=== PATIENT | male | born 1990 | race Caucasian/White ===

== ENCOUNTER 2025-03-12 11:40 | Outpatient (CLI) | payer OTHER, MEDICAID, SELFPAY ==
--- OUTSIDE RECORDS SUMMARY | 2025-02-25 02:42 | XMS_ITS | Encounter Summary ---
Author Organization Healthcare Address [address] [place] [address] Care Team Providers Care Ladle Handler Name Role Phone Pcp, No Primary Care Provider Unavailvidal e Francisco Javier Eller MD Unavailable [phone] Reason for Visit * Reason Comments Wound Check * Auth/Cert (Routine) Specialty Diagnoses / Procedures Referred By Kerry t Referred To Contact Diagnoses Sternal wound dehiscence, initial encounter chest abscess at surgical scar near mediastinum with hx cabg 2021 at [facility] Sherlyn Daniel MD [address] [address] Phone: tel: fax: [facility] Emergency Department [address] [place] [address] Phone: tel: Referral ID Status Reason Start Date Expiration Date Visits Re quested Visits Authorized [id number] 1 1 Encounter Details Date Type Department Care Team (Latest Contact Info) Description 02/25/2025 2:42 AM EDT - 03/06/2025 1:35 PM EDT Hospital Encounter [facility] Inpatient [address] [place] [id number] Franco Guillory MD [address] [place] [address] Sherlyn Daniel MD [address] [address] Chest wall abscess (Primary Dx); [...] any time in the past 12 m [facility], were you homeless or living in a snf (including now)? No 02/27/2025 Utilities Answer Date [...] 1 each 5 04/10/20 25 HYDROcodone-acetami nophen ([place]) 5-325 MG tablet Take 1 tablet by [...] as directed by MD. 20 patch 5 methocarbamol (Robaxin) 750 MG tablet Take 1 tablet by mouth 4 times a day. 30 tablet 5 naloxone (Narcan) 4 mg/0.1 mL nasal [...] 3 days. 24 tablet 5 03/12/20 25 documented as of this encounter Miscellaneous Notes * Discharge Summary - Malcolm Landrum PA - 03/06/2025 1:35 PM EDT Hospitalization Admit Date/Time: 02/25/2025 2:42 AM Admitting Attending: Sherlyn Daniel Discharge Date: 03-06-25 Discharge Attending Physician: Sherlyn Daniel MD PCP name and Address: Pcp, [facility] [address] [place] [address] Referring provider name and address: Stephen Tello, SONYA [address] [place] [address] [place] Chief Concern, Brief History of Present Illness, and Hospital Course Alex Amaya is a 34 y.o. male with history of IV drug use on suboxone, infectious endocarditisrequiring tricuspid valve repair in [place] in 2019. He states that he had [...] and got worse so he went to [facility] where he was found to have [...] Your Medications These medications were sent to [email or web address] -[place], [place] - [address], [facility] [address] ceFAZolin injection These medications were sent to [facility] [place], [place] - [address] [facility] [address] lidocaine 5 % patch methocarbamol 750 MG [...] leaflet repair and De Lucas procedure at [facility] ([place]) - OSH CT imaging uploaded and reviewed - 02/25: BCx (+) staph aureus - Underwent chest washout, wound debridement, removal of sternal plates, and wound vac placement on02/[address] Daniel (silver sponge so no WV change til Wednesday) - TTE shows LVEF 59%, mod dilated RV with nl RV fx. TV leaflets thickened. 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 There appears to be restricted [...] Pain - [facility] Obesity (POA) - BMI 33.47 [...] Center 03/08/2025 2:00 PM Keny Tristan MD [facility] 03/12/2025 9:40 AM Sherlyn Daniel MD [facility] 03/26/2025 11:40 AM Sherlyn Daniel MD [facility] 03/27/2025 9:00 AM Keny Chin MD [facility] 04/10/2025 9:00 AM Leela Chin MD [facility] Follow-up: Francisco Javier Eller MD [address] [id number] Go on 04/26/2025 Your appointment time is 2:10pm Please arrive 15 minutes early and bring bottles of medication [facility] [address] [place] [address] Go on 03/12/2025 03/12/25 at 11:30 AM - Infusion Center for PICC and labs Wound Vac Changes MWF - same location, but in Physical Therapy Department - First Appointment 03/14/25 9:00 AM [facility] [address] [place] [address] Follow up for IV antibiotics and supplies Stephen Tello, SONYA [address] [place] [address] [facility] Test Results Pending At Discharge Pending Labs Order Current Status AFB Culture, Non Respiratory Source and Acid Fast Stain Preliminary result Blood Culture (Aerobic/Anaerobet Set) Preliminary result Blood Culture (Aerobic/Anaerobet Set) Preliminary result Fungal Culture, Tissue and DNAY Preliminary result Prepare Leukocyte Reduced RBC: 4 [...] Note Alex Amaya 34 y.o. male CSN: [id number] Admission: 02/25/2025 2:42 AM Primary Problem: Sternal wound dehiscence, initial encounter Primary Skein Bander: Primary Caregiver: Self Assistance Available at Discharge: Availability of Care Givers (#Hours): 24 hours, No assistance needed Family/Skein Bander(s) Willingness Assessed to care for patient at [...] days Follow-up: Francisco Javier Eller MD [address] [facility] [address] Go on 04/26/2025 Your appointment time is 2:10pm Please arrive 15 minutes early and bring bottles of medication [facility] [address] [facility] [address] [place] [phone] Go on 03/12/2025 03/12/25 at 11:30 AM - Infusion Center for PICC and labs Wound Vac Changes MWF - same location, but in Physical Therapy Department - First Appointment 03/14/25 9:00 AM [facility] [address] [place] [address] Follow up for IV antibiotics and supplies Stephen Tello, SONYA [address] [place] [address] [facility] Discharge Transportation: Transportation Anticipated: [...] vac changes and then will go to [facility]. S/O will assist and transport. Lise [...] note were not included. 798 Narcan Nasal [place]: Rescue Guide for Opioid Overdose Step 1 [...] Only for use in the nose. * Opaljanet Kaushal - Barbara Martins - 03/06/2025 9:41 AM EDT Images from the original note were not included. [id number] Methocarbamol Brand Name(s): Robaxin??; also available generically [...] taking or plan to take while taking methocarbamol. Your doctor may need to change the [...] be awakened, immediately call emergency services at 738. What OTHER INFORMATION should I know? Keep all appointments with your doctor. Do not let anyone else take your medication. Ask your pharmacist any questions you have about refilling your prescription. It is important for you to keep a written list of all of the prescription and nonprescription (ydda-nxn-txppeua) medicines you are taking, as well as [...] or pharmacist about specific clinical use. The [place] [employer] represents that the information provided hereunder was formulated with a reasonable standard of care, and in conformity with professional standards in the field. The [place] [employer] makes no representations or warranties, express or implied, including, but not limited to, any implied warranty of merchantability and/or fitness for a particular purpose, with respect to such information and specifically disclaims all such warranties. Users are advised that decisions regarding drug therapy are complex medical decisions requiring the independent, informed decision of an appropriate health care program director, and the information is provided for informational purposes only. The entire monograph for a drug should be reviewed for a thorough understanding of the drug's actions, uses and side effects. The [place] [employer] does not endorse or recommend the use of any drug.The information is not a substitute for medical care. AHFS?? Patient Medication Information?. ?? Copyright, 2023. The [place] [employer]??, [address] [facility], [address], [place], [place]. All Rights Reserved. Duplication for commercial use must be authorized by [facility]. Selected Revisions: May 18, 2017. AHFS?? Patient Medication Information?. ?? Copyright, 2024 * Tyler Easley - Barbara Martins - 03/06/2025 9:41 AM EDT Images from the original note were not included. [id number] Lidocaine Transdermal Patch Brand Name(s): Absorbine Jr?? [...] or years after a shingles infection). Nonprescription (zmbt-ttr-xnrfxwq) lidocaine (Absorbine Jr, Aspercreme, Lidoca re, Salonpas, [...] or doctor for a copy of the tape calender's information for the patient. Are there OTHER [...] if you have or have ever had gdfqfrp-6-lvgerhzfd dehydrogenase (G-6PD) deficiency (an inherited blood disorder), [...] and out of their sight and reach. [email or web address] Unneeded medications should be disposed of in [...] of all of the prescription and nonprescription (ussr-spi-rmzidol) medicines you are taking, as well as [...] or pharmacist about specific clinical use. The [place] [employer] represents that the information provided hereunder was formulated with a reasonable standard of care, and in conformity with professional standards in the field. The [place] [employer] makes no representations or warranties, express or implied, including, but not limited to, any implied warranty of merchantability and/or fitness for a particular purpose, with respect to such information and specifically disclaims all such warranties. Users are advised that decisions regarding drug therapy are complex medical decisions requiring the independent, informed decision of an appropriate health care program director, and the information is provided for informational purposes only. The entire monograph for a drug should be reviewed for a thorough understanding of the drug's actions, uses and side effects. The [place] [employer] does not endorse or recommend the use of any drug.The information is not a substitute for medical care. AHFS?? Patient Medication Information?. ?? Copyright, 2023. The [place] [employer]??, [address] [facility] [facility] [address], [address], [place], [place]. All Rights Reserved. Duplication for commercial use must be authorized by [facility]. Selected Revisions: March 18, 2021. AHFS?? Patient Medication Information?. ?? Copyright, 2024 * Tyler OnFHIR - Barbara Martins - 03/06/2025 9:41 AM EDT Images from the original note were not included. [id number] Cefazolin Injection Brand Name(s): Ancef?, Kefzol?; also [...] of all of the prescription and nonprescription (nbup-vmj-qujtxvc) medicines you are taking, as well as [...] or pharmacist about specific clinical use. The [place] [employer] represents that the information provided hereunder was formulated with a reasonable standard of care, and in conformity with professional standards in the field. The [place] [employer] makes no representations or warranties, express or implied, including, but not limited to, any implied warranty of merchantability and/or fitness for a particular purpose, with respect to such information and specifically disclaims all such warranties. Users are advised that decisions regarding drug therapy are complex medical decisions requiring the independent, informed decision of an appropriate health care program director, and the information is provided for informational purposes only. The entire monograph for a drug should be reviewed for a thorough understanding of the drug's actions, uses and side effects. The [place] [employer] does not endorse or recommend the use of any drug.The information is not a substitute for medical care. AHFS?? Patient Medication Information?. ?? Copyright, 2023. The [place] [employer]??, [address] [facility] [address], [address], [place], [place]. All Rights Reserved. Duplication for commercial use must be authorized by [facility]. Selected Revisions: March 23, 2024. AHFS?? [...] present and normoactive x 4 quadrants SKIN: Brinsmade, warm, and dry. No rash, sores, or [...] leaflet repair and De Lucas procedure at [facility] ([place]) - OSH CT imaging uploaded and reviewed - 02/25: BCx (+) staph aureus - Underwent chest washout, wound debridement, removal of sternal plates, and wound vac placement on02/[address] Tanna (silver sponge so no WV change til Wednesday) - TTE shows LVEF 59%, mod dilated RV with nl RV fx. TV leaflets thickened. 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 There appears to be restricted [...] WV changes, continue home Suboxone Cardiothoracic Surgery [phone] * Progress Notes - Lise Christine RN - 03/05/2025 3:07 PM EDT Case Management Discharge Note Alex Amaya 34 y.o. male CSN: [id number] Admission: 02/25/2025 2:42 AM Primary Problem: Sternal wound dehiscence, initial encounter Primary Skein Bander: Primary Caregiver: Self Assistance Available at Discharge: Availability of Care Givers (#Hours): 24 hours, No assistance needed Family/Skein Bander(s) Willingness Assessed to care for patient at [...] days [facility]: [facility] [address] [facility] [address] Go on 04/26/2025 Your appointment time is 2:10pm Please arrive 15 minutes early and bring bottles of medication [facility] [address] [facility] [address] [place] [address] Go on 03/12/2025 03/12/25 at 11:30 AM - Infusion Center for PICC and labs Wound Vac Changes MWF - same location, but in Physical Therapy Department - First Appointment 03/14/25 9:00 AM [email or web address] [address] [facility] [address] Follow up for IV antibiotics and supplies Discharge Transportation: Transportation Anticipated: family or friend will provide Transportation Home at Discharge: Family/Friend will Provide Follow Up Transport: Transportation Needed to Follow up Appoinments: Family/Friend will Provide Additional Comments: Per primary team patient is medically ready for discharge. Patient will discharge with IV antibiotics from [facility] - supplies will be delivered to bedside. Wound vac ordered through [facility] - will be delivered to bedside. Patient will follow up in [facility]ovascular Clinic for first two wound vac changes, then will go to [facility] starting March 14. Patient also scheduled to go to [facility] for PICC care and labs. Family will [...] Performed by: Maxwell Roper RN Authorized by: Shrelyn Daniel MD [place] Protocol: Verbal consent obtained?: Yes Written consent [...] vein Patient position: Flat Catheter Lot #: [id number] Catheter tape calender: Sellbrite Catheter placed: Single lumen Catheter size: 4 [...] present and normoactive x 4 quadrants SKIN: Brinsmade, warm, and dry. No rash, sores, or [...] leaflet repair and De Lucas procedure at [facility] ([place]) - OSH CT imaging uploaded and reviewed - 02/25: BCx (+) staph aureus - Underwent chest washout, wound debridement, removal of sternal plates, and wound vac placement with Dr Daniel (silver sponge so no WV change til Tom) - TTE shows LVEF 59%, mod dilated RV with nl RV fx. TV leaflets thickened. 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 There appears to be restricted [...] present and normoactive x 4 quadrants SKIN: Brinsmade, warm, and dry. No rash, sores, or [...] leaflet repair and De Lucas procedure at [facility] ([place]) - OSH CT imaging uploaded and reviewed - 02/25: BCx (+) staph aureus - Underwent chest washout, wound debridement, removal of sternal plates, and wound vac placement on02/[address] Daniel (silver sponge so no WV change til Wednesday) - TTE shows LVEF 59%, mod dilated RV with nl RV fx. TV leaflets thickened. 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 There appears to be restricted [...] to order single lumen PICC. Cardiothoracic Surgery [id number] * Care Plan - Yared Cartwright RN [...] leaflet repair and De Lucas procedure at [facility] ([place]) - OSH CT imaging uploaded and reviewed - 02/25: BCx (+) staph aureus - Underwent chest washout, wound debridement, removal of sternal plates, and wound vac placement on02/[address] Daniel (silver sponge so no WV change til Wednesday) - TTE shows LVEF 59%, mod dilated RV with nl RV fx. TV leaflets thickened. 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 There appears to be restricted [...] to order single lumen PICC. Cardiothoracic Surgery [phone] * Significant Event - Keny Chin MD [...] 0930AM WEEK 6 FOLLOWUP: 04/10/2025, 0900AM at [address] [place] [address] (Select Option 3 for IV Antibiotic / PICC line related issues) All questions regarding outpatient parenteral antimicrobials after discharge should be directed to the OPAT nurse navigator at (Select Option 3 for IV Antibiotics/PICC Issues) between 8am-5pm. After 5 pm, or during weekends/[place] holidays, please call the paging instant printer operator at to reach the on-call ID fellow. PLEASE NOTIFY THE ID CONSULTING SERVICE OF ANY QUESTIONS REGARDING THESE RECOMMENDATIONS OR WITH ANY ANTIMICROBIAL CHANGES THAT OCCUR AFTER THE DATE/TIME OF THIS OPAT INTAKE NOTE. * Progress Notes - Keny Chin MD - 03/02/2025 12:00 PM EDT Infectious Disease Bone And Joint Consult Team - Followup, Attending Note S: NAEON. ROS: Positive as above. Otherwise, 14 systems [...] mg, Oral, q4h PRN, Carloz, Kelsie A, PROOFSHEET CORRECTOR Buprenorphine HCl-Naloxone HCl (Suboxone) 8-2 MG per SL film 8 mg, 8 mg, Sublingual, BID, Alejandro Sandoval PA, 8 mg at 03/02/25 0924 calcium carbonate (Tums) chewable tablet 500 mg, 500 mg, Oral, q6h PRN, Zariley, Kelsie A, PROOFSHEET CORRECTOR ceFAZolin (Ancef) injection 2 g, 2 g, Intravenous, q8h, Carloz Kelsie A, PROOFSHEET CORRECTOR, 2 g at 03/02/25 0923 docusate sodium (Colace) capsule 100 mg, 100 mg, Oral, BID, Zacher, Kelsie A, PROOFSHEET CORRECTOR, 100 mg at 03/02/25 0923 heparin (porcine) injection 5,000 Units, 5,000 Units, Subcutaneous, q8h PENDING SALE TO [facility], Maxwell Ocasio MD, 5,000 Units at 03/02/25 0515 HYDROmorphone (Dilaudid) tablet 2 mg, 2 mg, Oral, q6h PRN, Zariley, Kelsie A, PROOFSHEET CORRECTOR ibuprofen tablet 600 mg, 600 mg, Oral, q6h PRN, Zariley Kelsie A, PROOFSHEET CORRECTOR lidocaine (Lidoderm) 5 % patch 1 patch, 1 patch, Apply externally, q24h, Carloz Kelsie A, PROOFSHEET CORRECTOR, 1 patch at 03/01/252111 methocarbamol (Robaxin) tablet 750 mg, 750 mg, Oral, 4x daily, Zairley Kelsie A, PROOFSHEET CORRECTOR, 750 mg at 03/02/25 0923 senna (Senokot) [...] mL, 10 mL, Intravenous, PRN, Kelsie Carty APRN O: Visit Vitals BP 130/79 (BP Location: [...] regurgitation. Tricuspid Valve: The leaflets appear thickened. 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 There appears to be restricted [...] is no recent study available for direct kiau-lt-tloq comparison. 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 Ptalso with h/o TV IE in 2019 for which he had TV leaflet repair and De Lucas procedure at [facility]). Pt was incarcerated at the time, and [...] inage in several years. Pt seen at [facility] 02/24/2025. 02/24/2025 CT showed 2.4x2.1x2.6cm [...] BLD cx so far NGTD CARDIAC: H/o 2019 TV IE, s/p leaflet repair and De Lucas procedure at [facility] ([place]) SUBSTANCE ABUSE: Illicit: H/o IVDA, polysubstance abuse. [...] abx therapy. For now, while inpatient at [facility]: Continue Cefazolin 2g IV q8h [...] appointment in order to complete registration paperwork.) [facility] (Infectious Diseases Clinic) [address] [place] [address] FISH BIN TENDER: . FAX: ID Bone and Joint Consult Service will sign off. (Please reconsult us if his 02/27/2025 or 03/01/2025 blood cultures turn positive. This will affect dates of therapy and when PICC can be placed.) The following complex inpatient infectious disease services were performed today: Complex antimicrobial therapy counseling and treatment * Tyler MooreLESLI - Donna Rosario RN - 03/02/2025 10:43 [...] arms away from your body. * Tyler [facility] - Donna Rosario RN - 03/02/2025 10:43 AM EDT Images from the original note were not included. [id number] Understanding Wound Separation After Surgery (Wound Dehiscence) [...] of the opening. How to say it [id number] How wound dehiscence happens A wound can [...] all of the wound is open ?? Brandon or stitches are broken ?? Pain ?? [...] out Last Reviewed Date: 2024 00:00:00 ?? [id number] [employer]. All rights reserved. This information is not intended as a substitute for professional medical care. Always follow your healthcare professional's instructions. * Consults - Asia Neumann RD - 03/02/2025 9:48 AM EDT Adult Nutrition Evaluation Note Alex Amaya 34 y.o. male CSN: [id number] Room/Bed 119/119A Nutrition evaluation type: assessment Reason for evaluation: [facility] course: 34 yo male transferred to from [facility] for evaluation of chronic sternotomy wound with [...] suboxone, infectious endocarditis requiring tricuspid valverepair in [place] in 2019. Medical History[1] Surgical History[2] Social [...] (Room air) O2 Delivery Method: Nasal cannula [place] Coma Scale Score: 15 Jhony Scale Score: [...] (260 lb 12.9 oz) BMI (Calculated): 33.47 [place] Body Weight (kg): 86.4 Percent [place] Body Weight: 137 Adjusted Body Weight (kg): 94.4 Estimated Needs: Metabolic Cart Study Results: Current Nutrition Intake: Diet Supplements: None Diet Order: Adult Diet Diet Texture: Regular Percent Meals Eaten (%): 100% x 3 meals Diet Experience and Nutrition History: Diet Education Provided: Will monitor Pertinent home medications: Reviewed Tenriism needs: Nutrition Focused Physical Exam: Physical exam [...] with nl RV fx. TV leaflets thickened. 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 There appears to be restricted motion/malcoaptation involving the septal leaflet. There is no tricuspid valve vegetation. There is severe tricuspid regurgitation. There is systolic flow reversal of the hepatic veins consistent with significant tricuspid valve regurgitation. OUD (POA) Post-Operative Pain - continue home Suboxone - [facility] Obesity (POA) - BMI 33.88 - complicates all aspects of care Plan: - Continue IV abx per ID - Continue wound vac - Will need PICC Cardiothoracic Surgery [phone] * Progress Notes - Estefania Salguero - 03/01/2025 8:08 AM EDT Case Management Adult Progress Note Alex Amaya 34 y.o. male CSN: [id number] Admission: 02/25/2025 2:42 AM Primary Problem: Sternal [...] IV Access: pending Patient Specific Outpatient Circumstances: [address] [place] [address] Family Support: Extended Emergency Contact Information Primary Emergency Contact: Mary Lemus Mobile Relation: Significant Other Preferred language: Guyanese Claims Associate needed? No Contact information: Alex Amaya -[phone] Afua Lemus (pt's S.O. -will administer IV abx) - [phone] Outpatient services (including home infusion, home health, [...] PICC care/labs;patient is requesting to go to [facility] close to home . After this [...] via secure chat or staff messaging in [email or web address]. This note is not the final recommendations from the infectious diseases team, please refer to the most recent note for this information. Patient and family will need to be educated by the infusion company before being discharged home. Barby CORTEZN, RN 02/28/2025 * Progress Notes - Keny [...] mg, Oral, q6h PRN, August Cartya A, PROOFSHEET CORRECTOR ceFAZolin (Ancef) injection 2 g, 2 g, Intravenous, q8h, Kelsie Carty PROOFSHEET CORRECTOR, 2 g at 02/28/25 0908 docusate sodium (Colace) capsule 100 mg, 100 mg, Oral, BID, August Cartya A, PROOFSHEET CORRECTOR, 100 mg at 02/27/25 2139 heparin (porcine) [...] mL, 10 mL, Intravenous, PRN, Kelsie Carty PROOFSHEET CORRECTOR O: Visit Vitals BP 134/77 (BP Location: [...] regurgitation. Tricuspid Valve: The leaflets appear thickened. 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 There appears to be restricted [...] is no recent study available for direct dcrp-hy-kjle comparison. 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 Ptalso with h/o TV IE in 2019 for which he had TV leaflet repair and De Lucas procedure at [facility] Pt was incarcerated at the time, and post-discharge developed chronic drainage from cephalad portion of sternal wound. [facility]. Wound subsequentlyhas open and closed several times since 2021, including in December 2024. On/around 02/19/2025, wound again ruptured with large amount of purulent drainage, which pt described as largest amount of renata inage in several years. Pt seen at [facility] 02/24/2025. 02/24/2025 CT showed 2.4x2.1x2.6cm [...] leaflet repair and De Lucas procedure at [facility] SUBSTANCE ABUSE: Illicit: H/o IVDA, polysubstance abuse. [...] abx therapy. For now, while inpatient at [facility]: Continue Cefazolin 2g IV q8h [...] follow while inhouse. (If patient does leave A, then they will need to find another ID specialist to manage their care.) The following complex inpatient infectious disease services were performed today: Complex antimicrobial therapy counseling and treatment * Progress Notes - Kelsie Carty Gilbert, PROOFSHEET CORRECTOR - 02/28/2025 11:30 AM EDT CVT Progress [...] with nl RV fx. TV leaflets thickened. 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 There appears to be restricted motion/malcoaptation involving the septal leaflet. There is no tricuspid valve vegetation. There is severe tricuspid regurgitation. There is systolic flow reversal of the hepatic veins consistent with significant tricuspid valve regurgitation. OUD (POA) Post-Operative Pain - continue home Suboxone - [facility] Obesity (POA) - BMI 33.88 - complicates all aspects of care Plan: - continue IV abx per ID - continue wound vac Cardiothoracic Surgery [phone] * Care Plan - Nasra Jasmine RN [...] Ongoing, Progressing * Progress Notes - Mayelin Caruso, PharmD - 02/28/2025 8:08 AM EDT Vancomycin [...] needed in the future. Mayelin Caruso PharmD, [facility] Clinical Pharmacist - Cardiology Contact via [...] semipermeable dressing * Progress Notes - Ayan Elizalde, RuD - 02/27/2025 2:47 PM EDT Specialty Pharmacy [...] of HCV workup. Branden Elizalde, Pharm D. [facility] via secure [...] 600 mg, 600 mg, Oral, q6h SAUL, aMxwell Ocasio MD, 600 mg at 02/27/25 1145 [...] regurgitation. Tricuspid Valve: The leaflets appear thickened. 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 There appears to be restricted [...] is no recent study available for direct gybt-oc-twzp comparison. 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 Ptalso with h/o TV IE in 2019 for which he had TV leaflet repair and De Lucas procedure at [facility] Pt was incarcerated at the time, and [...] inage in several years. Pt seen at [facility] 02/24/2025. 02/24/2025 CT showed 2.4x2.1x2.6cm [...] leaflet repair and De Lucas procedure at [facility] SUBSTANCE ABUSE: Illicit: H/o IVDA, polysubstance abuse. [...] abx therapy. For now, while inpatient at [facility]: D/c Vanco and Zosyn Start [...] Note Alex Amaya 34 y.o. male CSN: [id number] Admission: 02/25/2025 2:42 AM Primary Problem: Sternal wound dehiscence, initial encounter PCP: Pcp, No Emergency Contact: Extended Emergency Contact Information Primary Emergency Contact: Mary Lemus Mobile Relation: Significant Other Preferred language: Guyanese Claims Associate needed? No Insurance: Primary Visit Coverage Payer Plan Sponsor Code Group Number Group Name AETNA AETNA OPEN CHOICE ACCESS [id number] Primary Visit Coverage Subscriber Subscriber ID Subscriber Name Subscriber SSN Subscriber Address [id number] Alex Amaya [id number] [address] [id number] Secondary Visit Coverage Payer Plan Sponsor Code Group Number Group Name WELLCARE MEDICAID WELLCARE MEDICAID Secondary Visit Coverage Subscriber Subscriber ID Subscriber Name Subscriber SSN Subscriber Address [id number] Alex Amaya [id number] [address] [place] [address] Patient information: Primary Caregiver: Self Accompanied by/Relationship: Mary Lemus ([phone]) Support System: Immediate family Daily Living Activities: Functional Status: Independent Living Arrangements: Spouse/Significant other, Children (5 y.o. child) Type of Residence: Private residence, Single Level (1-2 DANIS) [address] [address] Current DME: Equipment Currently Used at Home: [...] Dialysis Services: N/A Living Will/Advance Directive/Power of Cinder Pit Crane Operator /Guardian: Have you reviewed your Advance Directive [...] assessment; pt accompanied by significant other Mary Mariah ([phone]). Pt does not have a POA/LW/AD. Pt [...] DC. Pt has never worked with an SIDE SEAM TENDER and has never stayed anywhere overnight for physical rehab. Pt prefers [facility] his [facility]. Pt confirms insurance listed [...] sounds present and normoactivex 4 quadrants SKIN: Brinsmade, warm, and dry. No rash, sores, or [...] Post-Operative Pain - continue home Suboxone - [facility] Obesity (POA) - BMI 32 - complicates all aspects of care Plan: - continue IV abx per ID - continue wound vac - TTE completed this morning, read pending Cardiothoracic Surgery [phone] * Discharge Instr - Other Orders - Donna Rosario RN - 02/27/2025 10:28 AM EDT Please arrive 30 minutes early for your appointment with Dr. Daniel Prior to your appointment, go to the radiology department on the 1st floor of the [facility] near [facility] for a chest x-ray. Then [...] your incisions. Do NOT lift, push or lime puller 5 pounds for six weeks. Do [...] Donna Rosario CT Surgery Nurse Navigator at [phone] Wednesday through Wednesday 7am- 3:30pm [facility] [phone] after 3:30 pm, weekends and holidays - ask for the CT surgeon business liaison officer. * Progress Notes - Alejandro Sandoval PA [...] sounds present and normoactivex 4 quadrants SKIN: Brinsmade, warm, and dry. No rash, sores, or [...] Post-Operative Pain - continue home Suboxone - [facility] Obesity (POA) - BMI 32 - complicates all aspects of care Plan: - continue IV abx per ID - continue wound vac Cardiothoracic Surgery [phone] * Anesthesia PACU Signout - Umberto Davis [...] CORONARY ARTERY BYPASS GRAFTING: Date: 02/26/2025 Location: [facility] OR Name: Alex Amaya, : 1990, Pre-operative Diagnosis: Problem List[1] Post-operative [...] suboxone, infectious endocarditisrequiring tricuspid valve repair in [place] in 2019. He states that he had [...] midnight. Pacheco Ocasio MD Cardiothoracic Surgery Pager: [phone] * Significant Event - Alejandro Sandoval PA - 02/25/2025 1:35 PM EDT Patient seen and evaluated with Dr Daniel. Will go to OR tomorrow for chest washout and removal of sternal plates with Dr Daniel. Pre-op orders placed. Consent obtained and placed in paper chart. NPOp PR. CT Surgery [phone] * Consults - Kinga Mc MD - [...] valve repair with a DeVega Procedure at [facility] (2019), multiple I&Ds of superior sternotomy site most recent in 2021, and chronic drainage of sternotomy (last episode 3 months prior) who presents as a transfer from [facility] with new and worsened superior sternotomy drainage. MDET team were consulted to provide recommendations on therapy and management. Mr. Amaya first noted repeat drainage on 02/19/25, associated with fevers, chills, and swelling. He went to a local ED and was discharged. Given no change he then went to [facility]. CT Chest showed a fluid collection anterior to the sternum and was transferred to for ID follow up and CT surgery evaluation. Upon arrival to on 02/25 blood cultures were taken and have NGTD. Wound cultures have a GS positive for GPC in pairs and clusters. He was started on Vancomycin and Zosyn, [facility]. Additional pertinent admission workup includes Hep C antibodypositivity, HIV non-reactive, CRP of 282.5, and an ESR of 65. When spoken to Mr. Amaya endorses persistent drainage from his sternal wound. In the room therewas considerable drainage on his dressing, which ID team changed. He endorsed the above history anddescribes following with a shoes salesperson Dr. Park. Social: Was recently incarcerated until [...] Value Units Date/Time Blood Culture (Aerobic/Anaerobet Set) [[id number]] Collected: 02/25/25317 Order Status: Completed Specimen: Blood, Venous Updated: 02/25/25 06 Culture Culture in lab Blood Culture (Aerobic/Anaerobet Set) [[id number]] Collected: 02/25/25317 Order Status: Completed Specimen: Blood, Venous Updated: 02/25/25 0601 Culture Culture in lab Wound Culture and Gram Stain [[id number]] (Abnormal) Collected: 02/25/25445 Order Status: Completed Specimen: Swab from Cutaneous skin (specify site) Updated: 02/25/25 05 Gram Stain Result Numerous Polymorphonuclear leukocytes Numerous Gram positive cocci in pairs Numerous Gram positive cocci in clusters Antibiotics: Vancomycin 02/25-P Zosyn 02/25-P Assessment: Alex Amaya is a 34 y.o. male with history of IVDU on suboxone, nTVie s/p valve repair with a DeVega Procedure at [facility] (2019), multiple I&Ds of superior sternotomy site most recent in 2021, and chronic drainage of sternotomy (last episode 3 months prior) who presents as a transfer from [facility] with new and worsened superior sternotomy drainage. MDET team were consulted to provide recommendations on therapy and management. Cultures have not grown any specific organisms at this time, however GS with GPC in pairs and clusters. Agree with washout tomorrow and would obtain cultures. At this time can continue antibiotic therapy. # Hx of nTV ie s/p DeVega Procedure at [facility] (2019) # Sternotomy Site SSTI # Chronic [...] injection 5,000 Units 5,000 Units Subcutaneous q8h PENDING SALE TO [facility] Cassidy Baptiste MD 5,000Units at 02/25/25 0446 [...] ID will follow. Sherman Gonzáles MD Pager: [phone] I spent greater than 110 minutes performing the following components of the encounter (on the day of the encounter): reviewing history, examining the patient, reviewing imaging and/or labs, echo, ECGand/or other imaging results, counseling the patient and family/caregiver, communicating with otherhealth child care education coordinator. The patient is receiving directed antibiotic therapy which requires monitoring of daily labs for toxicities. Greater than 50% of the time spent on the encounter was rlyt-kc-ecif providing direct patient care, counseling for the [...] as appropriate. Thank you, Marcos Hopper PharmD, [facility] Clinical Staff Pharmacist * H&P [...] suboxone, infectious endocarditisrequiring tricuspid valve repair in [place] in 2019. He states that he had [...] and got worse so he went to [facility] where he was found to have [...] Tobacco Use: Medium Risk (01/09/2025) Received from [employer] Patient History Smoking Tobacco Use: Former Smokeless [...] suboxone, infectious endocarditisrequiring tricuspid valve repair in [place] in 2019. He states that he had [...] and got worse so he went to [facility] where he was found to have [...] infectious endocarditis requiring open heart surgery at [facility] (2019) c/b multiple episodes of medial [...] and got worse so he went to [facility] where he was found to have the chest abscess. He was transferred to [facility] for evaluation with CT surgery and ID History provided by: Patient and medical records sports betting manager used: No Patient History Medical History[1] Surgical [...] Medication Administration from 02/25/2025 0013 to 02/25/2025 041 Date/Time Order Dose Route Action 02/25/2025 0333 [...] Set) STAT In process [facility]IR[place] LEWIS 02/25/25307 Hepatitis C Antibody - ED Once Final result VIR[place]IA LEWIS 05/25/25 0308 ED Protocol - HIV 1/2 Antibody/Antigen Screen Once Final result [facility] LEWIS 02/25/25 0308 ED HIV 1/2 Antibody/Antigen Screen w/Reflex to HIV 1/2 Differentiation PROCEDURE ONCE Final result [facility] PIKE 02/25/25 0308 CBC w/diff STAT Final result [facility]IR[place]IA LEWIS 02/25/25 0308 CMP STAT Final result [place] 02/25/25 0308 Magnesium STAT Final result [facility] LEWIS 02/25/25 0308 Phosphorus STAT Final result [facility] LEWIS 02/25/25 0308 C-Reactive protein STAT Final result [facility] LEWIS 02/25/25 0308 Sed rate, automated STAT Final [...] collection [JG] 0314 Reviewed of records from [facility], given 1 g ceftriaxone at 19:47. [...] None Disposition Admit Admitting/Attending Physician: SHERLYN DANIEL [[id number]] Provider Care Team: CVT CARDIAC SURGERY [255] Are they the primary team?: Yes [1] - Virginia Lewis MD Internal Medicine, PGY-2 [phone] or via Epic chat [1] Past Medical History: Diagnosis Date Endocarditis [2] No past surgical history on file. [3] No family history on file. [4] [5] No Known Allergies Virginia Lewis MD Resident 02/25/25 05 Cosigned by Franco Guillory MD at 02/25/2025 [...] Description 03/26/2025 11:40 AM EDT Office Visit [facility] Cardiothoracic [address], [address] [place] [address] Sherlyn Daniel MD [address] [place] [address] 03/27/2025 9:00 AM EDT Office Visit [facility] [address] [place] [address] Keny Chin MD [address] [facility] [address] [place] [address] 04/10/2025 9:00 AM EDT Office Visit [facility] [address] [place] [address] Leela Chin MD [address] [place] [address] Pending Results Name Type Priority Associated Diagnoses [...] Roper RN Authorized by: Sherlyn Daniel MD [place] Protocol: Verbal consent obtained?: Yes Written consent [...] vein Patient position: Flat Catheter Lot #: [id number] Catheter tape calender: Sellbrite Catheter placed: Single lumen Catheter size: 4 [...] LAB HEMATOLOGY METHOD 03/03/2025 3:14 AM EDT [facility] Platelet Estimate Platelet smear estimate consistent with automated count LAB HEMATOLOGY METHOD 03/03/2025 3:14 AM EDT [facility] Blood Venous blood specimen / Unknown Venipuncture / Unknown 03/03/2025 2:11 AM EDT 03/03/2025 2:25 AM EDT us Kelsie Carty APRN LAB BLOOD ORDERABLES Final R esult [facility] [address] [place] [address] * (ABNORMAL) Manual Differential (03/03/2025 2:11 AM EDT) Blasts % 0 % LAB HEMATOLOGY METHOD 03/03/2025 3:14 AM EDT [facility] Promyelocytes % 0 % LAB HEMATOLOGY METHOD 03/03/2025 3:14 AM EDT [facility] Myelocytes % 2 % LAB HEMATOLOGY METHOD 03/03/2025 3:14 AM EDT [facility] Metamyelocytes % 3 % LAB HEMATOLOGY METHOD 03/03/2025 3:14 AM EDT [facility] Neutrophils % 75 % LAB HEMATOLOGY METHOD 03/03/2025 3:14 AM EDT [facility] Lymphocytes % 14 % LAB HEMATOLOGY METHOD 03/03/2025 3:14 AM EDT [facility] Reactive Lymphocytes % 0 % LAB HEMATOLOGY METHOD 03/03/2025 3:14 AM EDT [facility] Monocytes % 3 % LAB HEMATOLOGY METHOD 03/03/2025 3:14 AM EDT [facility] Eosinophils % 3 % LAB HEMATOLOGY METHOD 03/03/2025 3:14 AM EDT [facility] Basophils % 0 % LAB HEMATOLOGY METHOD 03/03/2025 3:14 AM EDT [facility] Blasts Absolute 0.00 10*3/UL LAB HEMATOLOGY METHOD 03/03/2025 3:14 AM EDT [facility] Promyelocytes Absolute 0.00 10*3/uL LAB HEMATOLOGY METHOD 03/03/2025 3:14 AM EDT [facility] Myelocytes Absolute 0.21 10*3/uL LAB HEMATOLOGY METHOD 03/03/2025 3:14 AM EDT [facility] Metamyelocytes Absolute 0.31 10*3/uL LAB HEMATOLOGY METHOD 03/03/2025 3:14 AM EDT [facility] Neutrophils Absolute 7.72(H) 1.60 - 6.10 10*3/uL LAB HEMATOLOGY METHOD 03/03/2025 3:14 AM EDT [facility] Lymphocytes Absolute 1.44 1.20 - 3.90 10*3/uL LAB HEMATOLOGY METHOD 03/03/2025 3:14 AM EDT [facility] Reactive Lymphocytes Absolute 0.00 10*3/uL LAB HEMATOLOGY METHOD 03/03/2025 3:14 AM EDT [facility] Monocytes Absolute 0.31 0.30 - 0.90 10*3/uL LAB HEMATOLOGY METHOD 03/03/2025 3:14 AM EDT [facility] Eosinophils Absolute 0.31 0.00 - 0.50 10*3/uL LAB HEMATOLOGY METHOD 03/03/2025 3:14 AM EDT [facility] Basophils Absolute 0.00 0.00 - 0.10 10*3/uL LAB HEMATOLOGY METHOD 03/03/2025 3:14 AM EDT [facility] Blood Venous blood specimen / Unknown Venipuncture / Unknown 03/03/2025 2:11 AM EDT 03/03/2025 2:25 AM EDT us Kelsie Carty PROOFSHEET CORRECTOR LAB BLOOD ORDERABLES Final R esult [facility] [address] [place] [address] * (ABNORMAL) Hepatic function panel (03/03/2025 2:11 AM EDT) Conjugated Bilirubin, Plasma <0.2 <=0.3 mg/dL 03/03/2025 2:55 AM EDT [facility] Comment:Hemolyzed, result ma y be falsely decreased. Alkaline Phosphatase, Plasma 99 40 - 115 U/L 03/03/2025 2:55 AM EDT [facility] Total Bilirubin, Plasma 0.3 0.2 - 1.1 mg/dL 03/03/2025 2:55 AM EDT [facility] Albumin, Plasma 3.3(L) 3.5 - 5.2 g/dL 03/03/2025 2:55 AM EDT [facility] Total Protein 7.9 6.3 - 7.9 g/dL 03/03/2025 2:55 AM EDT [facility] ALT, Plasma 36 10 - 50 U/L 03/03/2025 2:55 AM EDT [facility] AST, Plasma 46 10 - 50 U/L 03/03/2025 2:55 AM EDT [facility] Comment:Hemolyzed, result ma y be falsely increased. Blood Venous blood specimen / Unknown Venipuncture / Unknown 03/03/2025 2:11 AM EDT 03/03/2025 2:23 AM EDT us Kelsie A Zacher PROOFSHEET CORRECTOR LAB BLOOD ORDERABLES Final R esult [facility] [address] [place] [address] * Magnesium, Plasma (03/03/2025 2:11 AM EDT) Pathologist [facility] Magnesium, Plasma 2.2 1.9 - 2.4 mg/dL 03/03/2025 2:55 AM EDT [facility] Blood Venous blood specimen / Unknown Venipuncture / Unknown 03/03/2025 2:11 AM EDT 03/03/2025 2:23 AM EDT Kelsie Carty PROOFSHEET CORRECTOR LAB BLOOD ORDERABLES Final R esult [facility] [address] [place] [address] * CBC and Differential (03/03/2025 2:11 AM EDT) [facility] WBC Count 10.29 3.70 - 10.30 10*3/uL LAB HEMATOLOGY METHOD 03/03/2025 3:15 AM EDT [facility] RBC Count 5.48 4.60 - 6.10 10*6/uL LAB HEMATOLOGY METHOD 03/03/2025 3:15 AM EDT [facility] HGB 15.6 13.7 - 17.5 g/dL LAB HEMATOLOGY METHOD 03/03/2025 3:15 AM EDT [facility] HCT 47.6 40.0 - 51.0 % LAB HEMATOLOGY METHOD 03/03/2025 3:15 AM EDT [facility] Platelet Count 329 155 - 369 10*3/uL LAB HEMATOLOGY METHOD 03/03/2025 3:15 AM EDT [facility] MCV 87 79 - 98 fL LAB HEMATOLOGY METHOD 03/03/2025 3:15 AM EDT [facility] MCH 28.5 26.0 - 32.0 pg LAB HEMATOLOGY METHOD 03/03/2025 3:15 AM EDT [facility] MCHC 32.8 30.7 - 35.5 g/dL LAB HEMATOLOGY METHOD 03/03/2025 3:15 AM EDT [facility] RDW 12.9 11.5 - 14.5 % LAB HEMATOLOGY METHOD 03/03/2025 3:15 AM EDT [facility] MPV 9.1 8.8 - 12.5 fL LAB HEMATOLOGY METHOD 03/03/2025 3:15 AM EDT [facility] nRBC 0.0 <=0.0 per 100 WBCs LAB HEMATOLOGY METHOD 03/03/2025 3:15 AM EDT [facility] Differential Type Manual LAB HEMATOLOGY METHOD 03/03/2025 3:15 AM EDT [facility] Blood Venous blood specimen / Unknown Venipuncture / Unknown 03/03/2025 2:11 AM EDT 03/03/2025 2:25 AM EDT Narrative [facility] - 03/03/2025 3:15 AM [...] APRN LAB BLOOD ORDERABLES Final R esult [facility] [address] [place] [address] * Blood Culture (Aerobic/Anaerobet Set) (03/03/2025 2:11 AM EDT) Culture No growth at day 5 GEENA 03/08/2025 4:02 AM EDT [facility] Blood Structure of antecubital vein / Unknown Venipuncture / Unknown 03/03/2025 2:11 AM EDT 03/03/2025 3:04 AM EDT Narrative [facility] - 03/08/2025 4:02 AM EDT Low blood volume submitted, results may be compromised us Kelsie Carty APRN LAB MICROBIOLOGY - GENERAL O RDERABLES Final Result Performing Organization Address City/[facility]/ZIP Co de Phone Number [facility] [address] [place] [address] * Blood Culture (Aerobic/Anaerobet Set) (03/03/2025 2:11 AM EDT) Culture No growth at day 5 GEENA 03/08/2025 4:02 AM EDT [facility] Blood Venous blood specimen / Unknown Venipuncture / Unknown 03/03/2025 2:11 AM EDT 03/03/2025 3:03 AM EDT Kelsie Carty APRN LAB MICROBIOLOGY - GENERAL O RDERABLES Final Result Performing Organization Address [facility]/ZIP Co de Phone Number [facility] [address] [place] [address] * (ABNORMAL) CBC W/O Differential (03/01/2025 3:55 AM EDT) WBC Count 7.81 3.70 - 10.30 10*3/uL LAB HEMATOLOGY METHOD 03/01/2025 4:12 AM EDT [facility] RBC Count 4.51(L) 4.60 - 6.10 10*6/uL LAB HEMATOLOGY METHOD 03/01/2025 4:12 AM EDT [facility] HGB 12.8(L) 13.7 - 17.5 g/dL LAB HEMATOLOGY METHOD 03/01/2025 4:12 AM EDT [facility] HCT 40.5 40.0 - 51.0 % LAB HEMATOLOGY METHOD 03/01/2025 4:12 AM EDT [facility] Platelet Count 292 155 - 369 10*3/uL LAB HEMATOLOGY METHOD 03/01/2025 4:12 AM EDT [facility] MCV 90 79 - 98 fL LAB HEMATOLOGY METHOD 03/01/2025 4:12 AM EDT [facility] MCH 28.4 26.0 - 32.0 pg LAB HEMATOLOGY METHOD 03/01/2025 4:12 AM EDT [facility] MCHC 31.6 30.7 - 35.5 g/dL LAB HEMATOLOGY METHOD 03/01/2025 4:12 AM EDT [facility] RDW 13.0 11.5 - 14.5 % LAB HEMATOLOGY METHOD 03/01/2025 4:12 AM EDT [facility] MPV 9.5 8.8 - 12.5 fL LAB HEMATOLOGY METHOD 03/01/2025 4:12 AM EDT [facility] nRBC 0.0 <=0.0 per 100 WBCs LAB HEMATOLOGY METHOD 03/01/2025 4:12 AM EDT [facility] Blood Venous blood specimen / Unknown Venipuncture / Unknown 03/01/2025 3:55 AM EDT 03/01/2025 4:04 AM EDT Catalina Cuba MD LAB BLOOD ORDERABLES Final Result [facility] [address] [place] [address] * (ABNORMAL) Basic metabolic panel (03/01/2025 3:55 AM EDT) Glucose, Plasma 94 74 - 99 mg/dL 03/01/2025 4:37 AM EDT [facility] BUN, Plasma 14 7 - 21 mg/dL 03/01/2025 4:37 AM EDT [facility] Creatinine, Plasma 0.92 0.70 - 1.20 mg/dL 03/01/2025 4:37 AM EDT [facility] BUN/Creatinine Ratio 15 03/01/2025 4:37 AM EDT [facility] [facility] Sodium, Plasma 140 136 - 145 mmol/L 03/01/2025 4:37 AM EDT [facility] Potassium, Plasma 4.4 3.6 - 4.9 mmol/L 03/01/2025 4:37 AM EDT [facility] Chloride, Plasma 105 97 - 107 mmol/L 03/01/2025 4:37 AM EDT [facility] CO2, Plasma 25 22 - 29 mmol/L 03/01/2025 4:37 AM EDT [facility] Anion Gap 10 6 - 16 mmol/L 03/01/2025 4:37 AM EDT [facility] Total Calcium, Plasma 8.8(L) 8.9 - 10.2 mg/dL 03/01/2025 4:37 AM EDT [facility] eGFRcr 110.6 mL/min/1.7 3m*2 03/01/2025 4:37 AM EDT [facility] Comment:Reported eGFRcr in m L/min/1.73m2 is based the CKD-EPI 2020 equation that does not use a race coefficient. Blood Venous blood specimen / Unknown Venipuncture / Unknown 03/01/2025 3:55 AM EDT 03/01/2025 4:04 AM EDT us Catalina Cuba MD LAB BLOOD ORDERABLES Final Result Performing Organization Address [facility]/ZIP Co de Phone Number [facility] [address] [place] [address] * Blood Culture (Aerobic/Anaerobet Set) (03/01/2025 3:45 AM EDT) Culture No growth at day 5 GEENA 03/06/2025 5:01 AM EDT [facility] Blood Venous blood specimen / Unknown Venipuncture / Unknown 03/01/2025 3:45 AM EDT 03/01/2025 4:45 AM EDT us Kelsie Carty APRN LAB MICROBIOLOGY - GENERAL O RDERABLES Final Result [facility] [address] [place] [address] * Blood Culture (Aerobic/Anaerobet Set) (03/01/2025 3:30 AM EDT) Culture No growth at day 5 GEENA 03/06/2025 5:01 AM EDT [facility] Blood Venous blood specimen / Unknown Venipuncture / Unknown 03/01/2025 3:30 AM EDT 03/01/2025 4:45 AM EDT us Kelsie Carty APRN LAB MICROBIOLOGY - GENERAL O RDERABLES Final Result Performing Organization Address City/[facility]/ZIP Co de Phone Number [facility] [address] [place] [address] * Magnesium (02/28/2025 4:03 AM EDT) Magnesium, Plasma 2.2 1.9 - 2.4 mg/dL 02/28/2025 4:37 AM EDT [facility] Blood Venous blood specimen / Unknown Venipuncture / Unknown 02/28/2025 4:03 AM EDT 02/28/2025 4:10 AM EDT us Sherlyn Daniel MD LAB BLOOD ORDERABLES Final Res ult Performing Organization Address City/[facility]/ZIP Co de Phone Number [facility] [address] [place] [address] * (ABNORMAL) CBC W/O Differential (02/28/2025 4:03 AM EDT) WBC Count 7.50 3.70 - 10.30 10*3/uL LAB HEMATOLOGY METHOD 02/28/2025 4:26 AM EDT [facility] RBC Count 4.59(L) 4.60 - 6.10 10*6/uL LAB HEMATOLOGY METHOD 02/28/2025 4:26 AM EDT [facility] HGB 13.1(L) 13.7 - 17.5 g/dL LAB HEMATOLOGY METHOD 02/28/2025 4:26 AM EDT [facility] HCT 40.6 40.0 - 51.0 % LAB HEMATOLOGY METHOD 02/28/2025 4:26 AM EDT [facility] Platelet Count 252 155 - 369 10*3/uL LAB HEMATOLOGY METHOD 02/28/2025 4:26 AM EDT [facility] MCV 89 79 - 98 fL LAB HEMATOLOGY METHOD 02/28/2025 4:26 AM EDT [facility] MCH 28.5 26.0 - 32.0 pg LAB HEMATOLOGY METHOD 02/28/2025 4:26 AM EDT [facility] MCHC 32.3 30.7 - 35.5 g/dL LAB HEMATOLOGY METHOD 02/28/2025 4:26 AM EDT [facility] RDW 13.2 11.5 - 14.5 % LAB HEMATOLOGY METHOD 02/28/2025 4:26 AM EDT [facility] MPV 9.8 8.8 - 12.5 fL LAB HEMATOLOGY METHOD 02/28/2025 4:26 AM EDT [facility] nRBC 0.0 <=0.0 per 100 WBCs LAB HEMATOLOGY METHOD 02/28/2025 4:26 AM EDT [facility] Blood Venous blood specimen / Unknown Venipuncture / Unknown 02/28/2025 4:03 AM EDT 02/28/2025 4:12 AM EDT us Sherlyn Daniel MD LAB BLOOD ORDERABLES Final Res ult [facility] [address] [place] [address] * (ABNORMAL) Basic metabolic panel (02/28/2025 4:03 AM EDT) Glucose, Plasma 110(H) 74 - 99 mg/dL 02/28/2025 4:37 AM EDT [facility] BUN, Plasma 18 7 - 21 mg/dL 02/28/2025 4:37 AM EDT [facility] Creatinine, Plasma 1.15 0.70 - 1.20 mg/dL 02/28/2025 4:37 AM EDT [facility] BUN/Creatinine Ratio 16 02/28/2025 4:37 AM EDT [facility] Sodium, Plasma 136 136 - 145 mmol/L 02/28/2025 4:37 AM EDT [facility] Potassium, Plasma 3.8 3.6 - 4.9 mmol/L 02/28/2025 4:37 AM EDT [facility] Chloride, Plasma 104 97 - 107 mmol/L 02/28/2025 4:37 AM EDT [facility] CO2, Plasma 24 22 - 29 mmol/L 02/28/2025 4:37 AM EDT [facility] Anion Gap 8 6 - 16 mmol/L 02/28/2025 4:37 AM EDT [facility] Total Calcium, Plasma 8.6(L) 8.9 - 10.2 mg/dL 02/28/2025 4:37 AM EDT [facility] eGFRcr 84.6 mL/min/1.7 3m*2 02/28/2025 4:37 AM EDT [facility] Comment:Reported eGFRcr in m L/min/1.73m2 is based the CKD-EPI 2020 equation that does not use a race coefficient. Blood Venous blood specimen / Unknown Venipuncture / Unknown 02/28/2025 4:03 AM EDT 02/28/2025 4:10 AM EDT us Sherlyn Daniel MD LAB BLOOD ORDERABLES Final Res ult [facility] [address] [place] [address] * PERIPHERAL IV (SM[employer] LINK) (02/27/2025 6:13 PM EDT) Narrative Maxwell Roper RN - 02/27/2025 6:13 PM EDT Maxwell Roper, RN 02/27/2025 6:13 PM Insert peripheral IV Performed by: Maxwell Roper, RN Authorized by: Sherlyn Daniel MD Hand [...] regurgitation. Tricuspid Valve: The leaflets appear thickened. 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 There appears to be restricted [...] is no recent study available for direct owsk-ai-fovz comparison. Left Ventricle Based on the linear [...] stenosis. Tricuspid Valve The leaflets appear thickened. 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 There appears to be restricted [...] is no recent study available for direct botl-[id number]-mvtx comparison. Wall Scoring Baseline Score Index: 1.00 [...] Than... (02/27/2025 10:46 AM EDT) Pathologist [facility] Vancomycin, Peak, Plasma 25.5 20.0 - 40.0 ug/mL 02/27/2025 11:21 AM EDT [facility] Blood Venous blood specimen / Unknown Venipuncture / Unknown 02/27/2025 10:46 AM EDT 02/27/2025 10:52 AM EDT Narrative [facility] - 02/27/2025 11:21 AM EDT Therapeutic Peak level: 20-40ug/mL Supra-therapeutic Peak level: >40 ug/mL us Alejandro AARON LAB BLOOD ORDERABLES Final R esult [facility] [address] [place] [address] * (ABNORMAL) Lipid panel (02/27/2025 4:33 AM EDT) Pathologist [facility] Cholesterol, Plasma 108 <200 mg/dL 02/27/2025 5:14 AM EDT [facility] Comment: Cholesterol Reference Range (age >17 years): Desirable <200 mg/dL Borderline 200 to 239 mg/dL Undesirable >239 mg/dL HDL 28(L) >=40 mg/dL 02/27/2025 5:14 AM EDT [facility] Comment: HDL Cholesterol Reference Ranges (age >17 years): Female, acceptable > or = 50 mg/dL Male, acceptable > or = 40 mg/dL Triglycerides, Plasma 94 <150 mg/dL 02/27/2025 5:14 AM EDT [facility] Comment: Triglyceride Reference Range (age >17 years): Desirable: <150 mg/dL Borderline high: 150 to 199 mg/dL High: 200 to 499 mg/dL Very high: >499 mg/dL Increased risk of pancreatitis: >1000 mg/dL Cholesterol/HDL Ratio 4 02/27/2025 5:14 AM EDT [facility] LDL, Calculated 62 <100 mg/dL 5:14 AM EDT [facility] Comment: LDL Cholesterol Reference [...] 12 hours? No 02/27/2025 5:14 AM EDT [facility] Blood Venous blood specimen / Unknown Venipuncture / Unknown 02/27/2025 4:33 AM EDT 02/27/2025 4:42 AM EDT Alejandro AARON LAB BLOOD ORDERABLES Final R esult [facility] [address] [place] [address] * Hemoglobin A1c (02/27/2025 4:33 AM EDT) Hemoglobin A1c 5.4 <5.7 % 02/27/2025 7:06 AM EDT [facility] Blood Venous blood specimen / Unknown Venipuncture / Unknown 02/27/2025 4:33 AM EDT 02/27/2025 4:45 AM EDT Narrative [facility] - 02/27/2025 7:06 AM EDT HA1C Interpretive Data: Diagnosis of Diabetes: Diabetic > or = 6.5% Pre-diabetic 5.7 to 6.4% Non-diabetic < or = 5.6% Glycemic Targets for Type I and Type II Diabetics: Non- Adults <7.0% Adults <6.0% Children and Adolescents <7.5% Source: [place] [employer]. Standards of medical care in diabetes,2017. Diabetes Care.2017:40 (suppl 1):S1-S135. us Alejandro AARON LAB BLOOD ORDERABLES Final R esult [facility] [address] [place] [address] * (ABNORMAL) Basic metabolic panel (02/27/2025 4:33 AM EDT) Glucose, Plasma 128(H) 74 - 99 mg/dL 02/27/2025 5:14 AM EDT [facility] BUN, Plasma 18 7 - 21 mg/dL 02/27/2025 5:14 AM EDT [facility] Creatinine, Plasma 1.01 0.70 - 1.20 mg/dL 02/27/2025 5:14 AM EDT [facility] BUN/Creatinine Ratio 18 02/27/2025 5:14 AM EDT [facility] Sodium, Plasma 135(L) 136 - 145 mmol/L 02/27/2025 5:14 AM EDT [facility] Potassium, Plasma 4.6 3.6 - 4.9 mmol/L 02/27/2025 5:14 AM EDT [facility] Chloride, Plasma 101 97 - 107 mmol/L 02/27/2025 5:14 AM EDT [facility] CO2, Plasma 24 22 - 29 mmol/L 02/27/2025 5:14 AM EDT [facility] Anion Gap 10 6 - 16 mmol/L 02/27/2025 5:14 AM EDT [facility] Total Calcium, Plasma 9.2 8.9 - 10.2 mg/dL 02/27/2025 5:14 AM EDT [facility] eGFRcr 98.8 mL/min/1.7 3m*2 02/27/2025 5:14 AM EDT [facility] Comment:Reported eGFRcr in m L/min/1.73m2 is based the CKD-EPI 2020 equation that does not use a race coefficient. Blood Venous blood specimen / Unknown Venipuncture / Unknown 02/27/2025 4:33 AM EDT 02/27/2025 4:42 AM EDT us Sherlyn Daniel MD LAB BLOOD ORDERABLES Final Res ult [facility] [address] [place] [address] * (ABNORMAL) CBC W/O Differential (02/27/2025 4:33 AM EDT) WBC Count 9.62 3.70 - 10.30 10*3/uL LAB HEMATOLOGY METHOD 02/27/2025 4:53 AM EDT [facility] RBC Count 4.58(L) 4.60 - 6.10 10*6/uL LAB HEMATOLOGY METHOD 02/27/2025 4:53 AM EDT [facility] HGB 13.1(L) 13.7 - 17.5 g/dL LAB HEMATOLOGY METHOD 02/27/2025 4:53 AM EDT [facility] HCT 40.8 40.0 - 51.0 % LAB HEMATOLOGY METHOD 02/27/2025 4:53 AM EDT [facility] Platelet Count 247 155 - 369 10*3/uL LAB HEMATOLOGY METHOD 02/27/2025 4:53 AM EDT [facility] MCV 89 79 - 98 fL LAB HEMATOLOGY METHOD 02/27/2025 4:53 AM EDT [facility] MCH 28.6 26.0 - 32.0 pg LAB HEMATOLOGY METHOD 02/27/2025 4:53 AM EDT [facility] MCHC 32.1 30.7 - 35.5 g/dL LAB HEMATOLOGY METHOD 02/27/2025 4:53 AM EDT [facility] RDW 13.1 11.5 - 14.5 % LAB HEMATOLOGY METHOD 02/27/2025 4:53 AM EDT [facility] MPV 10.4 8.8 - 12.5 fL LAB HEMATOLOGY METHOD 02/27/2025 4:53 AM EDT [facility] nRBC 0.0 <=0.0 per 100 WBCs LAB HEMATOLOGY METHOD 02/27/2025 4:53 AM EDT [facility] Blood Venous blood specimen / Unknown Venipuncture / Unknown 02/27/2025 4:33 AM EDT 02/27/2025 4:45 AM EDT Sherlyn Daniel MD LAB BLOOD ORDERABLES Final Res ult Performing Organization Address [facility] [place] [address] * Blood Culture (Aerobic/Anaerobet Set) (02/27/2025 4:30 AM EDT) Culture No growth at day 5 GEENA 03/04/2025 5:01 AM EDT [facility] Blood Venous blood specimen / Unknown Venipuncture / Unknown 02/27/2025 4:30 AM EDT 02/27/2025 4:47 AM EDT Sherman Gonzáles MD LAB MICROBIOLOGY - GENERAL O RDERABLES Final Result Performing Organization Address [facility] [place] [address] * Blood Culture (Aerobic/Anaerobet Set) (02/27/2025 4:00 AM EDT) Culture No growth at day 5 GEENA 03/04/2025 5:[address] [facility] Blood Venous blood specimen / Unknown Venipuncture / Unknown 02/27/2025 4:00 AM EDT 02/27/2025 4:47 AM EDT Sherman Gonzáles MD LAB MICROBIOLOGY - GENERAL O RDERABLES Final Result Performing Organization Address [facility] [place] [address] * XR Chest 1 View (02/27/2025 2:37 [...] Culture Light Growth 03/01/2025 3:23 PM EDT [facility] Culture Staphylococcus aureus(A) GEENA 03/01/2025 3:23 PM EDT [facility] Foreign Body Bone structure [...] ORD ERABLES Final Result Performing Organization Address City/[facility]/[place] [address] * Anaerobic Culture (02/26/2025 10:10 AM EDT) Culture No anaerobes isolated 03/03/2025 5:50 AM EDT [facility] Foreign Body Bone structure of sternum / Unknown 02/26/2025 10:10 AM EDT 02/26/2025 11:21 AM EDT Comment:Pre-op diagnosis: Chest wall abscess [L02.213] Sherlyn Daniel MD LAB MICROBIOLOGY - GENERAL ORD ERABLES Final Result Performing Organization Address [facility] [place] [address] * (ABNORMAL) POCT arterial blood gas gem (02/26/2025 9:42 AM EDT) pH, Arterial 7.42 7.35 - 7.45 02/26/2025 9:44 AM EDT [facility] pCO2, Arterial 41 32 - 45 mm Hg 02/26/2025 9:44 AM EDT [facility] pO2, Arterial 105 83 - 108 mm Hg 02/26/2025 9:44 AM EDT [facility] SO2, Arterial 99(H) 94 - 98 % 02/26/2025 9:44 AM EDT [facility] Base Excess, Arterial 1.9 -2 - 3 mmol/L 02/26/2025 9:44 AM EDT [facility] HCO3, Arterial 26.6(H) 22 - 26 mmol/L 02/26/2025 9:44 AM EDT [facility] Total Hemoglobin, Arterial, Whole Blood 13.6(L) 13.7 - 17.5 g/dL 02/26/2025 9:44 AM EDT [facility] Hematocrit, Arterial 41.0 40 - 51.0 % 02/26/2025 9:44 AM EDT [facility] Sodium, Arterial 135(L) 136 - 145 mmol/L 02/26/2025 9:44 AM EDT [facility] Potassium, Arterial 4.1 3.6 - 4.9 mmol/L 02/26/2025 9:44 AM EDT [facility] Chloride, Whole Blood 104 97 - 107 mmol/L 02/26/2025 9:44 AM EDT [facility] Glucose, Arterial 106(H) 74 - 99 mg/dL 02/26/2025 9:44 AM T [facility] Ionized Calcium, Arterial 4.7 4.6 - 5.1 mg/dL 02/26/2025 9:44 AM EDT [facility] Lactate, Arterial 0.6 0.5 - 1.6 mmol/L 02/26/2025 9:44 AM EDT [facility] Body Temperature 37.0 Celsius 02/26/2025 9:44 AM T [facility] pH, Temp Corrected, Arterial 7.42 7.35 - 7.45 02/26/2025 9:44 AM EDT [facility] pCO2, Temp Corrected, Arterial 41 32 - 45 mm Hg 02/26/2025 9:44 AM EDT [facility] pO2, Temp Corrected, Arterial 105 83 - 108 mm Hg 02/26/2025 9:44 AM EDT [facility] Inspector Line ID Carina Jordan 02/26/2025 9:44 AM EDT [facility] Blood, Arterial Whole blood specimen / Unknown 02/26/2025 9:42 AM EDT 02/26/2025 9:44 AM EDT us Sherlyn Daniel MD LAB POINT OF CARE TE ST DOCKED DEVICE UNSOLICITED RESULTS Final Result [facility] [address] [place] [address] * (ABNORMAL) Abscess Culture and Gram Stain (02/26/2025 9:34 AM EDT) Culture Light Growth 03/01/2025 3:22 PM EDT [facility] Culture Staphylococcus aureus(A) GEENA 03/01/2025 3:22 PM EDT [facility] Comment:The organism value f or this result has been updated. These results have been appended to the previously preliminary verified report. Gram Stain Result Few Polymorphonuclear leukocytes(A) 03/01/2025 3:22 PM EDT [facility] Gram Stain Result Few Gram positive cocci in pairs(A) 03/01/2025 3:22 PM EDT [facility] Swab Bone structure of [...] MICROBIOLOGY - GENERAL ORD ERABLES Final Result [facility] [address] [place] [address] * Fungal Culture, Routine (02/26/2025 9:34 AM EDT) Culture No Fungal Growth at 1 Week 03/06/2025 9:03 AM EDT [facility] Swab Bone structure of sternum / Unknown 02/26/2025 9:34 AM EDT 02/26/2025 11:01 AM EDT Comment:Pre-op diagnosis: Chest wall abscess [L02.213] Sherlyn Daniel MD LAB MICROBIOLOGY - GENERAL ORD ERABLES Final Result Performing Organization Address City/[facility]/ZIP Co de Phone Number [facility] [address] [place] [address] * Anaerobic Culture (02/26/2025 9:34 AM EDT) Culture No anaerobes isolated 03/03/2025 5:50 AM EDT [facility] Swab Bone structure of sternum / Unknown 02/26/2025 9:34 AM EDT 02/26/2025 11:01 AM EDT Comment:Pre-op diagnosis: Chest wall abscess [L02.213] Sherlyn Daniel MD LAB MICROBIOLOGY - GENERAL ORD ERABLES Final Result Performing Organization Address City/[facility]/ZIP Co de Phone Number [facility] [address] [place] [address] * Type and screen (02/25/2025 4:54 PM [...] ORDERABL ES Final Result Performing Organization Address City/[facility]/ZIP Co de Phone Number BLOOD BANK [address] [place] [address], [place] * (ABNORMAL) Wound Culture and Gram Stain (02/25/2025 4:46 AM EDT) CULTURE READING WOUND Moderate Growth 02/27/2025 3:19 PM EDT [facility] CULTURE READING WOUND Staphylococcus aureus(A) GEENA 02/27/2025 3:19 PM EDT [facility] Comment:The organism value f or this result has been updated. These results have been appended to the previously preliminary verified report. Gram Stain Result Numerous Polymorphonuclear leukocytes(A) 02/27/2025 3:19 PM EDT [facility] Gram Stain Result Numerous Gram positive cocci in pairs(A) 02/27/2025 3:19 PM EDT [facility] Gram Stain Result Numerous Gram positive cocci in clusters(A) 02/27/2025 3:19 PM EDT [facility] Swab Skin structure / [...] MICROBIOLOGY - GENERAL ORD ERABLES Final Result [facility] [address] [place] [address] * (ABNORMAL) Bacterial ID Gram Positive (02/25/2025 3:18 AM EDT) Staphylococcus Result Detected( A) Not Detected 02/26/2025 4:46 AM EDT [facility] Comment:Assess if contaminan t or clinically relevant pathogen. Consider clinical stability and immune status of patient. Blood Venous blood specimen / Unknown Venipuncture / Unknown 02/25/2025 3:18 AM EDT 02/25/2025 4:04 AM EDT Narrative [facility] - 02/26/2025 4:46 AM [...] Value: Not detected for all analytes tested. us Franco Guillory MD LAB MICROBIOLOGY - GENERAL ORD ERABLES Final Result [facility] [address] [place] [address] * Hepatitis C Virus (HCV) Quantitative PCR - ED (02/25/2025 3:18 AM EDT) Pathologist [facility] Hepatitis C Virus (HCV) Quantitative Interpretation Not Detected Not Detected. 02/27/2025 2:[address] [facility] Blood Venous blood specimen / Unknown Venipuncture / Unknown 02/25/2025 3:18 AM EDT 02/25/2025 3:53 AM EDT Narrative [facility] - 02/27/2025 2:45 PM EDT The [employer] M2000 HCV test is a Real Time [...] ORDERABLES Final Res ult Performing Organization Address [facility]/[place] [address] * ED HIV 1/2 Antibody/Antigen Screen w/Reflex to HIV 1/2 Differentiation (02/25/2025 3:18 AM EDT) HIV 1 & 2 Antibody/Antigen Screen Non Reactive Non Reactive 02/25/2025 4:35 AM EDT [facility] Comment:Screening for HIV 1 & 2 antibodies, and P24 antigen is NONREACTIVE. No confirmatory testing is required. Blood Venous blood specimen / Unknown Venipuncture / Unknown 02/25/2025 3:18 AM EDT 02/25/2025 3:53 AM EDT Result [facility] us Franco Guillory MD LAB BLOOD ORDERABLES Final Res ult Performing Organization Address [facility] Co de Phone Number [facility] [address] [place] [address] * (ABNORMAL) Hepatitis C Antibody - ED (02/25/2025 3:18 AM EDT) Hepatitis C Antibody Positive(A ) Negative 02/25/2025 4:40 AM EDT [facility] Blood Venous blood specimen / Unknown Venipuncture / Unknown 02/25/2025 3:18 AM EDT 02/25/2025 3:53 AM EDT us Franco Guillory MD LAB BLOOD ORDERABLES Final Res ult [facility] [address] [place] [address] * (ABNORMAL) Blood Culture (Aerobic/Anaerobet Set) (02/25/2025 3:18 AM EDT) Culture Staphylococcus aureus(AA) GEENA 02/27/2025 1:21 PM EDT [facility] Comment: Isolated from aerobic and anaerobic culture bottles. The organism value for this result has been updated. These results have been appended to the previously preliminary verified report. Culture Staphylococcus coagulase negative(AA) GEENA 02/27/2025 1:21 PM EDT [facility] Comment: Isolated from aerobic and anaerobic culture bottles. Isolated from one bottle only in a 24-hour period. If workup required, contact bacteriology at [facility]. This organism may be associated with a contaminated culture. The organism value for this result has been updated. These results have been appended to the previously preliminary verified report. Gram Stain Gram positive cocci in clusters(AA) 02/27/2025 1:21 PM EDT [facility] Comment: Organism seen in Anaerobic Blood Culture Bottle. Positivity Date and Time to Detection: 02/25/2025. at 00 Day(s) and 16 Hour(s). This is an appended report. These results have been appended to a previously preliminary verified report. Gram Stain Gram positive cocci in clusters(AA) 02/27/2025 1:21 PM EDT [facility] Comment: Organism seen in Aerobic Blood Culture Bottle. Positivity Date and Time to Detection: 02/25/2025 at 00 Day(s) and 16 Hour(s). This is an appended report. These results have been appended to a previously preliminary verified report. Blood Venous blood specimen / Unknown Venipuncture / Unknown 02/25/2025 3:18 AM EDT 02/25/2025 4:04 AM EDT Narrative [facility] - 02/27/2025 1:21 PM EDT Anaerobic blood culture entered in duplicate. Organism Antibiotic Method Susceptibility Staphylococcus aureus Daptomycin GEENA <=1 ug/ml: Susceptible Staphylococcus aureus Linezolid GEENA <=1 ug/ml: Susceptible Staphylococcus aureus Oxacillin GEENA <=0.25 ug/ml: Susceptible Staphylococcus aureus Vancomycin GEENA 1 ug/ml: Susceptible us Franco Guillory MD LAB MICROBIOLOGY - GENERAL ORD ERABLES Final Result [facility] [address] [place] [address] * (ABNORMAL) Blood Culture (Aerobic/Anaerobet Set) (02/25/2025 3:18 AM EDT) Culture Staphylococcus aureus(AA) 03/03/2025 12:34 PM EDT [facility] Comment: For susceptibility results refer to: - [id number] Isolated from aerobic and anaerobic culture bottles. The organism value for this result has been updated. These results have been appended to the previously preliminary verified report. Gram Stain Gram positive cocci in clusters(AA) 03/03/2025 12:34 PM EDT [facility] Comment: Organism seen in Anaerobic Blood Culture Bottle. Positivity Date and Time to Detection: 02/26/2025. at 00 Day(s) and 19 Hour(s). This is an appended report. These results have been appended to a previously preliminary verified report. Gram Stain Gram positive cocci in clusters(AA) 03/03/2025 12:34 PM EDT [facility] Comment: Organism seen in [...] MICROBIOLOGY - GENERAL ORD ERABLES Final Result [facility] [address] [place] [address] * (ABNORMAL) Sed rate, automated (02/25/2025 3:18 AM EDT) Sedimentation Rate 65(H) <15 mm/hr 2024 3:54 AM EDT [facility] Blood Venous blood specimen / Unknown Venipuncture / Unknown 02/25/2025 3:18 AM EDT 02/25/2025 3:40 AM EDT Franco Guillory MD LAB BLOOD ORDERABLES Final Res ult Performing Organization Address [facility]/ZIP Co de Phone Number [facility] [address] [place] [address] * (ABNORMAL) C-Reactive protein (02/25/2025 3:18 AM EDT) CRP, Plasma 282.5(H) <=8.0 mg/L 02/25/2025 4:23 AM EDT [facility] Blood Venous blood specimen / Unknown Venipuncture / Unknown 02/25/2025 3:18 AM EDT 02/25/2025 3:53 AM EDT Narrative [facility] - 02/25/2025 4:23 AM EDT This CRP test is appropriate for assessment of infection, systemic inflammation and/or tissue injury. To assess cardiovascular disease risk order high sensitivity CRP (CRPH). Franco Guillory MD LAB BLOOD ORDERABLES Final Res ult Performing Organization Address [facility] Co de Phone Number [facility] [address] [place] [address] * Phosphorus (02/25/2025 3:18 AM EDT) Phosphorus, Plasma 2.7 2.5 - 4.5 mg/dL 02/25/2025 4:23 AM EDT [facility] Blood Venous blood specimen / Unknown Venipuncture / Unknown 02/25/2025 3:18 AM EDT 02/25/2025 3:53 AM EDT Franco Guillory MD LAB BLOOD ORDERABLES Final Res ult Performing Organization Address City/[facility]/ZIP Co de Phone Number [facility] [address] [place] [address] * Magnesium (02/25/2025 3:18 AM EDT) Magnesium, Plasma 2.2 1.9 - 2.4 mg/dL 02/25/2025 4:23 AM EDT [facility] Blood Venous blood specimen / Unknown Venipuncture / Unknown 02/25/2025 3:18 AM EDT 02/25/2025 3:53 AM EDT us Franco Guillory MD LAB BLOOD ORDERABLES Final Res ult [facility] [address] [place] [address] * (ABNORMAL) CMP (02/25/2025 3:18 AM EDT) Glucose, Plasma 132(H) 74 - 99 mg/dL 02/25/2025 4:23 AM EDT [facility] BUN, Plasma 13 7 - 21 mg/dL 02/25/2025 4:23 AM EDT [facility] Creatinine, Plasma 0.86 0.70 - 1.20 mg/dL 02/25/2025 4:23 AM EDT [facility] BUN/Creatinine Ratio 15 02/25/2025 4:23 AM EDT [facility] Sodium, Plasma 137 136 - 145 mmol/L 02/25/2025 4:23 AM EDT [facility] Potassium, Plasma 3.7 3.6 - 4.9 mmol/L 02/25/2025 4:23 AM EDT [facility] Chloride, Plasma 101 97 - 107 mmol/L 02/25/2025 4:23 AM EDT [facility] CO2, Plasma 24 22 - 29 mmol/L 02/25/2025 4:23 AM EDT [facility] Anion Gap 12 6 - 16 mmol/L 02/25/2025 4:23 AM EDT [facility] Total Calcium, Plasma 9.2 8.9 - 10.2 mg/dL 02/25/2025 4:23 AM EDT [facility] Total Protein 7.4 6.3 - 7.9 g/dL 02/25/2025 4:23 AM EDT [facility] Albumin, Plasma 3.5 3.5 - 5.2 g/dL 02/25/2025 4:23 AM EDT [facility] AST, Plasma 20 10 - 50 U/L 02/25/2025 4:23 AM EDT [facility] Comment:Hemolyzed, result ma y be falsely increased. ALT, Plasma 16 10 - 50 U/L 02/25/2025 4:23 AM EDT [facility] Alkaline Phosphatase, Plasma 100 40 - 115 U/L 02/25/2025 4:23 AM EDT [facility] Total Bilirubin, Plasma 0.7 0.2 - 1.1 mg/dL 02/25/2025 4:23 AM EDT [facility] eGFRcr 115.1 mL/min/1.7 3m*2 02/25/2025 4:23 AM EDT [facility] Comment:Reported eGFRcr in m L/min/1.73m2 is based the CKD-EPI 2020 equation that does not use a race coefficient. Blood Venous blood specimen / Unknown Venipuncture / Unknown 02/25/2025 3:18 AM EDT 02/25/2025 3:53 AM EDT us Franco Guillory MD LAB BLOOD ORDERABLES Final Res ult [facility] [address] [place] [address] * (ABNORMAL) CBC w/diff (02/25/2025 3:18 AM EDT) WBC Count 9.74 3.70 - 10.30 10*3/uL LAB HEMATOLOGY METHOD 02/25/2025 3:42 AM EDT [facility] RBC Count 5.34 4.60 - 6.10 10*6/uL LAB HEMATOLOGY METHOD 02/25/2025 3:42 AM EDT [facility] HGB 15.5 13.7 - 17.5 g/dL LAB HEMATOLOGY METHOD 02/25/2025 3:42 AM EDT [facility] HCT 45.4 40.0 - 51.0 % LAB HEMATOLOGY METHOD 02/25/2025 3:42 AM EDT [facility] Platelet Count 167 155 - 369 10*3/uL LAB HEMATOLOGY METHOD 02/25/2025 3:42 AM EDT [facility] MCV 85 79 - 98 fL LAB HEMATOLOGY METHOD 02/25/2025 3:42 AM EDT [facility] MCH 29.0 26.0 - 32.0 pg LAB HEMATOLOGY METHOD 02/25/2025 3:42 AM EDT [facility] MCHC 34.1 30.7 - 35.5 g/dL LAB HEMATOLOGY METHOD 02/25/2025 3:42 AM EDT [facility] RDW 13.2 11.5 - 14.5 % LAB HEMATOLOGY METHOD 02/25/2025 3:42 AM EDT [facility] MPV 10.0 8.8 - 12.5 fL LAB HEMATOLOGY METHOD 02/25/2025 3:42 AM EDT [facility] nRBC 0.0 <=0.0 per 100 WBCs LAB HEMATOLOGY METHOD 02/25/2025 3:42 AM EDT [facility] Differential Type Automated LAB HEMATOLOGY METHOD 02/25/2025 3:42 AM EDT [facility] Neutrophils % 80 % LAB HEMATOLOGY METHOD 02/25/2025 3:42 AM EDT [facility] Lymphocytes % 10 % LAB HEMATOLOGY METHOD 02/25/2025 3:42 AM EDT [facility] Monocytes % 8 % LAB HEMATOLOGY METHOD 02/25/2025 3:42 AM EDT [facility] Eosinophils % 1 % LAB HEMATOLOGY METHOD 02/25/2025 3:42 AM EDT [facility] Basophils % 0 % LAB HEMATOLOGY METHOD 02/25/2025 3:42 AM EDT [facility] Immature Granulocytes % 1 % LAB HEMATOLOGY METHOD 02/25/2025 3:42 AM EDT [facility] Neutrophils Absolute 7.79(H) 1.60 - 6.10 10*3/uL LAB HEMATOLOGY METHOD 02/25/2025 3:42 AM EDT [facility] Lymphocytes Absolute 1.00(L) 1.20 - 3.90 10*3/uL LAB HEMATOLOGY METHOD 02/25/2025 3:42 AM EDT [facility] Monocytes Absolute 0.76 0.30 - 0.90 10*3/uL LAB HEMATOLOGY METHOD 02/25/2025 3:42 AM EDT [facility] Eosinophils Absolute 0.11 0.00 - 0.50 10*3/uL LAB HEMATOLOGY METHOD 02/25/2025 3:42 AM EDT [facility] Basophils Absolute 0.02 0.00 - 0.10 10*3/uL LAB HEMATOLOGY METHOD 02/25/2025 3:42 AM EDT [facility] Immature Granulocytes Absolute 0.06 0.00 - 0.06 10*3/uL LAB HEMATOLOGY METHOD 02/25/2025 3:42 AM EDT [facility] Blood Venous blood specimen / Unknown Venipuncture / Unknown 02/25/2025 3:18 AM EDT 02/25/2025 3:40 AM EDT Narrative [facility] - 02/25/2025 3:42 AM EDT Therapeutic decision making should be based on absolute values, rather than percentages. us Franco Guillory MD LAB BLOOD ORDERABLES Final Res ult [facility] [address] [place] [address] documented in this encounter Visit Diagnoses Diagnosis [...] on Wed02/27/25 at 1015, Until Discontinued, Routine 0926 (Given - Provider: Mayelin Dorsey RN)2030 (Given - Provider: Marsha Miranda, SEBASTIAN) 0836 (Given - Provider: Gallo Bhatt RN)2118 [...] on Wed02/25/25 at 0900, Until Discontinued, Routine 09 (Not Given - Provider: Mayelin Dorsey RN [...] Miranda RN)1411 (Given - Provider: Gallo Bhatt RN)2118 (Given - Provider: Gulshan Toney RN) 0606 [...] Mayelin Dorsey RN)1421 (Given - Provider: Mayelin Dorsey RN)1814 (Given - Provider: Mayelin Dorsey RN)2214 (Given - Provider: Marsha Miranda RN) 0835 (Given - Provider: Gallo Bhatt RN)1411 (Given - Provider: Gallo Bhatt RN)1836 (Given [...] Miranda RN) 0835 (Given - Provider: Gallo Bhatt, SEBASTIAN)2117 (Given - Provider: Gulshan Toney RN) 0824 [...] 0425, Until Discontinued, Routine [facility]: Yared Cartwright RN)1814 (Given - Provider: Mayelin Dorsey RN) 0405 (Given - Provider: Marsha Miranda, SEBASTIAN)1535 (Given - Provider: Gallo Bhatt, SEBASTIAN) 0358 (Given - Provider: Gulshan Toney RN) sodium chloride 0.9 % flush 10 mL 10 mL, Intravenous, Every 12 hours, First dose on 03/04/25 at 1745, Until Discontinued, Routine 1814 (Given - Provider: Mayelin Dorsey, SEBASTIAN) 0618 (Given - Provider: Marsha Miranda, SEBASTIAN)1721 (Given - Provider: Gallo Bhatt, SEBASTIAN) 0609 (Given - Provider: Gulshan Toney RN) PRN Medication Order 03/04/2025 03/05/2025 03/06/2025 acetaminophen (Tylenol) tablet 650 mg(Linked Group 2) 650 mg, Oral, Every 4 hours PRN, Starting on 03/03/25 at 1000, Until Tu03/06/25 at 1535, Routine, Recovery(Phase II-Outpatient)/On Unit(Inpatient), fever, headaches, mild pain 1632 (Given - Provider: Gallo Bhatt, RN)2237 (Given - Provider: Gulshan Toney RN) 0609 (Given - Provider: Gulshan Toney RN) calcium carbonate (Tums) chewable tablet 500 mg 500 mg, Oral, Every 6 hours PRN, Starting on 02/25/25 at 0419, Until Tu03/06/25 at 1535, Routine, indigestion, heartburn, dyspepsia / upset stomach HYDROmorphone (Dilaudid) tablet 2 mg (CANCELED) 2 mg, Oral, Every 6 hours PRN, Starting on 03/02/25 at 0834, Until Wed03/04/25 at 0654, Routine, [...] PRN, Starting on 03/04/25 at 0654, Until Tu03/06/25 at 1535, Routine, severe pain, For pain unrelieved by other interventions 1424 (Given - Provider: Mayelin Dorsey RN)1814 (Given - Provider: Mayelin Dorsey RN)2214 (Given - Provider: Marsha Miranda, SEBASTIAN) 0304 (Given - Provider: Marsha Miranda, SEBASTIAN)0839 (Given - Provider: Gallo Bhatt RN)1633 (Given [...] documented as of this encounter Care Teams Ladle Handler Relationship Specialty Start Date End Date Pcp, [facility] [address] [place] [address] PCP - General Family Medicine 02/25/25 [facility] [place] [id number] Labor Economics Professor 03/02/25 documented as of this encounter
--- OUTSIDE RECORDS SUMMARY | 2025-02-26 08:43 | XMS_ITS | Encounter Summary ---
Author Organization Healthcare Address [address] [place] [address] Care Team Providers Care Chlorination Operator Name Role Phone Pcp, No Primary Care Provider Unavailabl e Reason for Visit * Auth/Cert (Routine) Specialty Diagnoses / Procedures Referred By Kerry ramirez Referred To Contact Diagnoses Sternal wound dehiscence, initial encounter chest abscess at surgical scar near mediastinum with hx cabg [address] [facility], Sherlyn Hunt MD [address] [place] [address] Phone: tel: fax: [facility] Emergency Department [address] [place] [address] Phone: tel: Referral ID Status Reason Start Date Expiration Date Visits Re quested Visits Authorized [id number] 1 1 Encounter Details Date Type Department Care Team (Late st Contact Info) Description 02/26/2025 8:43 AM EDT Anesthesia Event [facility] OPERATING ROOM [address] [place] [address] Praneeth Jasmine MD [address] [place] [id number] Jeremy Franco MD [address] [place] [address] Anesthesia Record Procedure Summary Procedure [...] any time in the past 12 m [facility], were you homeless or living in a group home (including now)? No 02/27/2025 Utilities Answer Date Recorded In the past 12 months has th e [employer], gas, oil, or water [employer] threatened to shut off services in your [...] portions of the procedure(s) and [facility]. See resident note [...] portions of the procedure(s) and immediately available [facility] services the entire duration. See resident note for details. * Anesthesia Preprocedure Evaluation - Praneeth Jasmine MD - 02/26/2025 7:02 AM EDT Patient: Alex Amaya Procedure Information Date/Time: 02/26/25 0900 Procedure: CHEST WASHOUT, REMOVAL OF STERNAL PLATES Location: [facility] OR Diane / [facility] OR Surgeons: Sherlyn [...] Description 03/26/2025 11:40 AM EDT Office Visit [facility] Cardiothoracic [address], [address] [place] [address] Sherlyn Cisse MD [address] [place] [address] 03/27/2025 9:00 AM EDT Office Visit [address] [address] Keny Chin MD [address] [place] [address] [address] [place] [address] 04/10/2025 9:00 AM EDT Office Visit [address] [address] Leela Chin MD [address] [place] [address] [address] [place] [address] documented as of this encounter Procedures Procedure Name Priority Date/Time Associated Diagnosis Comments ANESTHESIA ARTERIAL LINE PLACEMENT Routine 02/26/2025 9:33 AM EDT PB ANESTHESIA PLACEHOLDER Routine 02/26/2025 8:53 AM EDT [place] AN ELECTIVE ENDOTRACHEAL AIRWAY Routine 02/26/2025 8:53 [...] MD ANESTHESIA ORDERABLES Final Res ult * [place] AN ELECTIVE ENDOTRACHEAL AIRWAY, PB ANESTHESIA PLACEHOLDER [...] documented as of this encounter Care Teams Chlorination Operator Relationship Specialty Start Date End Date Pcp, [place] [address] PCP - General Family Medicine 02/25/25 documented as of this encounter
--- OUTSIDE RECORDS SUMMARY | 2025-02-26 09:00 | XMS_ITS | Encounter Summary ---
Author Organization Healthcare Address [address] [place] [address] Care Team Providers Care Supervisor Lace Tearing Name Role Phone Pcp, No Primary Care Provider Unavailabl e Reason for Visit * Reason Comments Wound Check * Auth/Cert (Routine) Specialty Diagnoses / Procedures Referred By Contac t Referred To Contact Diagnoses Sternal wound dehiscence, initial encounter chest abscess at surgical scar near mediastinum with hx cabg 2021 at [facility] Sherlyn Daniel MD [address] [address] Phone: tel: fax: [facility] A Emergency Department [address] [place] [address] Phone: tel: Referral ID Status Reason Start Date Expiration Date Visits Re quested Visits Authorized [id number] 1 1 Encounter Details Date Type Department Care Team (Late st Contact Info) Description 02/26/2025 9:00 AM EDT - 02/26/2025 11:30 AM EDT Surgery [facility] OPERATING ROOM [address] [place] [phone] Sherlyn Daniel MD [address] [address] CHEST WASHOUT, REMOVAL OF STERNAL [...] past 12 months has th e electric, [employer], oil, or water [employer] threatened to shut off services in your [...] 1 each 5 04/10/20 25 HYDROcodone-acetami nophen (O[place]ond) 5-325 MG tablet Take 1 tablet by [...] MD PCP name and Address: Pcp, Heaven [address] [place] [id number] Referring provider name and address: Stephen Tello, SONYA [address] [place] [address] [place], [place] Chief Concern, Brief History of Present Illness, and Hospital Course Alex Amaya is a 34 y.o. male with history of IV drug use on suboxone, infectious endocarditisrequiring tricuspid valve repair in [place] in 2019. He states that he had [...] and got worse so he went to where he was found to have the [...] medications were sent to [facility] - [place], [place] - [address], [facility] [phone] ceFAZolin injection These medications were sent to - [facility] - [place], [place] - [address] [facility] [id number] lidocaine 5 % patch methocarbamol 750 MG [...] [facility] ([place]) - OSH CT imaging uploaded and reviewed - 02/25: BCx (+) staph aureus - Underwent chest washout, wound debridement, removal of sternal plates, and wound vac placement on02/[address] Daniel (silver sponge so no WV change til Wednesday) - TTE shows LVEF 59%, mod dilated RV with nl RV fx. TV leaflets thickened. [place] TV endocarditis post valve repair with a [...] Post-Operative Pain - Continue home Suboxone - [facility] Obesity (POA) - BMI 33.47 - Complicates [...] 03/08/2025 2:00 PM Keny Tristan MD [facility] 03/12/2025 9:40 AM Sherlyn Daniel MD [facility] 03/26/2025 11:40 AM Sherlyn Daniel MD [facility] 03/27/2025 9:00 AM Keny Chin MD [facility] 04/10/2025 9:00 AM Leela Chin MD [facility] [place] Follow-up: Francisco [facility] [place] [id number] Go on 04/26/2025 Your appointment time is 2:10pm Please arrive 15 minutes early and bring bottles of medication [facility] [address] [place] [phone] Go on 03/12/2025 03/12/25 at 11:30 AM - Infusion Center for PICC and labs Wound Vac Changes MWF - same location, but in Physical Therapy Department - First Appointment 03/14/25 9:00 AM [facility] [address] [place] [address] Follow up for IV antibiotics and supplies Stephen Tello, SONYA [address] [place] [address] [facility] Test Results Pending At [...] RN informed. * Progress Notes - Lise Christine, RN - 03/06/2025 10:39 AM EDT Case Management Discharge Note Alex Amaya 34 y.o. male CSN: [id number] Admission: 02/25/2025 2:42 AM Primary Problem: Sternal wound dehiscence, initial encounter Primary Deburring And Tooling Machine Operator: Primary Caregiver: Self Assistance Available at Discharge: Availability of Care Givers (#Hours): 24 hours, No assistance needed Family/Deburring And Tooling Machine Operator(s) Willingness Assessed to care for patient [...] 30 days Follow-up: Francisco [facility] [id number] Go on 04/26/2025 Your appointment time is 2:10pm Please arrive 15 minutes early and bring bottles of medication [address] [place] [phone] Go on 03/12/2025 03/12/25 at 11:30 AM - Infusion Center for PICC and labs Wound Vac Changes MWF - same location, but in Physical Therapy Department - First Appointment 03/14/25 9:00 AM [facility] [address] [place] [address] Follow up for IV antibiotics and supplies Stephen Tello, HOME HEALTH CARE CASE MANAGER [address] [place] [address] [facility] Discharge Transportation: Transportation Anticipated: [...] vac changes and then will go to [facility]. S/O will assist and transport. Lise [...] note were not included. [address] Narcan Nasal [place]: Rescue Guide for Opioid Overdose Step 1 [...] for use in the nose. * [facility] - Barbara Martins - 03/06/2025 9:41 AM EDT Images from the original note were not included. [id number] Methocarbamol Brand Name(s): Robaxin??; also available generically [...] be awakened, immediately call emergency services at 049. What OTHER INFORMATION should I know? Keep all appointments with your doctor. Do not let anyone else take your medication. Ask your pharmacist any questions you have about refilling your prescription. It is important for you to keep a written list of all of the prescription and nonprescription (enqc-tui-mkymwul) medicines you are taking, as well as [...] or pharmacist about specific clinical use. The [place] [employer] represents that the information provided hereunder was formulated with a reasonable standard of care, and in conformity with professional standards in the field. The [place] [employer] makes no representations or warranties, express or implied, including, but not limited to, any implied warranty of merchantability and/or fitness for a particular purpose, with respect to such information and specifically disclaims all such warranties. Users are advised that decisions regarding drug therapy are complex medical decisions requiring the independent, informed decision of an appropriate health memory care program resident, and the information is provided for informational purposes only. The entire monograph for a drug should be reviewed for a thorough understanding of the drug's actions, uses and side effects. The [place] [employer] does not endorse or recommend the use of any drug.The information is not a substitute for medical care. AHFS?? Patient Medication Information?. ?? Copyright, 2023. The [employer] [place] [employer]??, [address] [facility] [address], [address], [place], [place]. All Rights Reserved. Duplication for commercial use must be authorized by [facility]. Selected Revisions: May 18, 2017. AHFS?? Patient Medication Information?. ?? Copyright, 2024 * Tyler MooreLESLI - Barbara Martins - 03/06/2025 9:41 AM EDT Images from the original note were not included. [id number] Lidocaine Transdermal Patch Brand Name(s): Absorbine Jr?? [...] or years after a shingles infection). Nonprescription (ghtj-bkc-mullodx) lidocaine (Absorbine Jr, Aspercreme, Lidoca re, Salonpas, [...] or doctor for a copy of the guide tour's information for the patient. Are there OTHER [...] if you have or have ever had czyyaqf-1-ezbqvrqst dehydrogenase (G-6PD) deficiency (an inherited blood disorder), [...] and out of their sight and reach. [email or web address] Unneeded medications should be disposed of in [...] of all of the prescription and nonprescription (rcum-sea-drdsssh) medicines you are taking, as well as [...] or pharmacist about specific clinical use. The [place] [employer] represents that the information provided hereunder was formulated with a reasonable standard of care, and in conformity with professional standards in the field. The [place] [employer] makes no representations or warranties, express or implied, including, but not limited to, any implied warranty of merchantability and/or fitness for a particular purpose, with respect to such information and specifically disclaims all such warranties. Users are advised that decisions regarding drug therapy are complex medical decisions requiring the independent, informed decision of an appropriate health memory care program resident, and the information is provided for informational purposes only. The entire monograph for a drug should be reviewed for a thorough understanding of the drug's actions, uses and side effects. The [place] [employer] does not endorse or recommend the use of any drug.The information is not a substitute for medical care. AHFS?? Patient Medication Information?. ?? Copyright, 2023. The [employer] [place] [employer]??, [address], [address], [place], [place]. All Rights Reserved. Duplication for commercial use must be authorized by [facility]. Selected Revisions: March 18, 2021. AHFS?? Patient Medication Information?. ?? Copyright, 2024 * Tyler Easley - Barbara Martins - 03/06/2025 9:41 AM EDT Images from the original note were not included. [id number] Cefazolin Injection Brand Name(s): Ancef?, Kefzol?; also [...] of all of the prescription and nonprescription (jqjk-sxa-txaejtr) medicines you are taking, as well as [...] or pharmacist about specific clinical use. The [place] [employer] represents that the information provided hereunder was formulated with a reasonable standard of care, and in conformity with professional standards in the field. The [place] [employer] makes no representations or warranties, express or implied, including, but not limited to, any implied warranty of merchantability and/or fitness for a particular purpose, with respect to such information and specifically disclaims all such warranties. Users are advised that decisions regarding drug therapy are complex medical decisions requiring the independent, informed decision of an appropriate health memory care program resident, and the information is provided for informational purposes only. The entire monograph for a drug should be reviewed for a thorough understanding of the drug's actions, uses and side effects. The [place] [employer] does not endorse or recommend the use of any drug.The information is not a substitute for medical care. AHFS?? Patient Medication Information?. ?? Copyright, 2023. The [employer] [place] [employer]??, [address], [address], [place], [place]. All Rights Reserved. Duplication for commercial use must be authorized by [facility]. Selected Revisions: March 23, 2024. AHFS?? Patient Medication Information?. ?? Copyright, 2024 * Progress Notes - Aeljandro Sandoval PA - 03/05/2025 5:34 PM EDT [...] present and normoactive x 4 quadrants SKIN: Iantha, warm, and dry. No rash, sores, or [...] leaflet repair and De Lucas procedure at [facility]) - OS CT imaging uploaded and reviewed - 02/25: BCx (+) staph aureus - Underwent chest washout, wound debridement, removal of sternal plates, and wound vac placement on02/[address] Daniel (silver sponge so no [place] change til Wednesday) - TTE shows LVEF 59%, mod dilated RV with nl RV fx. TV leaflets thickened. [place] TV endocarditis post valve repair with a [...] W[place] changes, continue home Suboxone Cardiothoracic Surgery [phone] * Progress Notes - iLse Christine RN - 03/05/2025 3:07 PM EDT Case Management Discharge Note Alex Amaya 34 y.o. male CSN: [id number] Admission: 02/25/2025 2:42 AM Primary Problem: Sternal wound dehiscence, initial encounter Primary Deburring And Tooling Machine Operator: Primary Caregiver: Self Assistance Available at Discharge: Availability of Care Givers (#Hours): 24 hours, No assistance needed Family/Deburring And Tooling Machine Operator(s) Willingness Assessed to care for patient [...] days Follow-up: Francisco Javier Eller MD [address] [facility] [id number] Go on 04/26/2025 Your appointment time is 2:10pm Please arrive 15 minutes early and bring bottles of medication [facility] [address] [place] [phone] Go on 03/12/2025 03/12/25 at 11:30 AM - Infusion Center for PICC and labs Wound Vac Changes MWF - same location, but in Physical Therapy Department - First Appointment 03/14/25 9:00 [facility] [address] Follow up for IV antibiotics and supplies Discharge Transportation: Transportation Anticipated: family or friend will provide Transportation Home at Discharge: Family/Friend will Provide Follow Up Transport: Transportation Needed to Follow up Appoinments: Family/Friend will Provide Additional Comments: Per primary team patient is medically ready for discharge. Patient will discharge with IV antibiotics from [facility] - supplies will be delivered to bedside. Wound vac ordered through [facility] - will be delivered to bedside. Patient will follow up in Cardiovascular Clinic for first two wound vac changes, then will go to [facility] starting March 14. Patient also scheduled to go to [facility] [place] for PICC care and labs. Family will [...] vein Patient position: Flat Catheter Lot #: [id number] Catheter guide tour: [employer] Catheter placed: Single lumen Catheter size: 4 [...] present and normoactive x 4 quadrants SKIN: Iantha, warm, and dry. No rash, sores, or [...] [facility] ([place]) - OSH CT imaging uploaded and reviewed - 02/25: BCx (+) staph aureus - Underwent chest washout, wound debridement, removal of sternal plates, and wound vac placement on02/[address] Daniel (silver sponge so no W[place] change til Wednesday) - TTE shows LVEF 59%, mod dilated RV with nl RV fx. TV leaflets thickened. [place] TV endocarditis post valve repair with a [...] present and normoactive x 4 quadrants SKIN: Iantha, warm, and dry. No rash, sores, or [...] [facility] ([place]) - OSH CT imaging uploaded and reviewed - 02/25: BCx (+) staph aureus - Underwent chest washout, wound debridement, removal of sternal plates, and wound vac placement on02/[address] Daniel (silver sponge so no W[place] change til Wednesday) - TTE shows LVEF 59%, mod dilated RV with nl RV fx. TV leaflets thickened. [place] TV endocarditis post valve repair with a [...] Review Outcome: Ongoing, Progressing Flowsheets (Taken 03/02/2025 [id number]) Progress: improving Plan of Care Reviewed With: [...] [facility] [place] - OSH CT imaging uploaded and reviewed - 02/25: BCx (+) staph aureus - Underwent chest washout, wound debridement, removal of sternal plates, and wound vac placement on02/[address] Daniel (silver sponge so no W[place] change til Wednesday) - TTE shows LVEF 59%, mod dilated RV with nl RV fx. TV leaflets thickened. [place] TV endocarditis post valve repair with a [...] Post-Operative Pain - [facility] Obesity (POA) - BMI 33.47 - Complicates care Plan: - Continue cefazolin per ID - Continue wound vac - Per ID, if BC from 02/27 & 03/01 remain negative, okay to order single lumen PICC. Cardiothoracic Surgery [phone] * Significant Event - Keny Chin MD [...] 0930AM WEEK 6 FOLLOWUP: 04/10/2025, 0900AM at [address] [place] [address] (Select Option 3 for IV Antibiotic / PICC line related issues) All questions regarding outpatient parenteral antimicrobials after discharge should be directed to the OPAT nurse navigator at (Select Option 3 for IV Antibiotics/PICC Issues) between 8am-5pm. After 5 pm, or during weekends/[place] holidays, please call the paging pasteurizing machine operator at to reach the on-call ID [...] mg, Oral, q4h PRN, Zacher, Kelsie A, DYE HOUSE HAND Buprenorphine HCl-Naloxone HCl (Suboxone) 8-2 MG per SL film 8 mg, 8 mg, Sublingual, BID, Alejandro Sandoval PA, 8 mg at 03/02/25 0924 calcium carbonate (Tums) chewable tablet 500 mg, 500 mg, Oral, q6h PRN, Zacher, Kelsie A, DYE HOUSE HAND ceFAZolin (Ancef) injection 2 g, 2 g, Intravenous, q8h, Zariley Kelsie A, DYE HOUSE HAND, 2 g at 03/02/25 0923 docusate sodium (Colace) capsule 100 mg, 100 mg, Oral, BID, Zariley Kelsie A, DYE HOUSE HAND, 100 mg at 03/02/25 0923 heparin (porcine) injection 5,000 Units, 5,000 Units, Subcutaneous, q8h [facility], Maxwell Ocasio MD, 5,000 Units at 03/02/25 0515 HYDROmorphone (Dilaudid) tablet 2 mg, 2 mg, Oral, q6h PRN, Zariley Kelsie A, DYE HOUSE HAND ibuprofen tablet 600 mg, 600 mg, Oral, q6h PRN, Zacher, Kelsie A, DYE HOUSE HAND lidocaine (Lidoderm) 5 % patch 1 patch, 1 patch, Apply externally, q24h, Zariley Kelsie A, DYE HOUSE HAND, 1 patch at 03/01/252111 methocarbamol (Robaxin) tablet 750 mg, 750 mg, Oral, 4x daily, Kelsie Carty APRN, 750 mg at 03/02/25 0923 senna (Senokot) tablet 17.2 mg, 17.2 mg, Oral, Nightly, Kelsie Carty DYE HOUSE HAND, 17.2 mg at 02/27/25 2139 simethicone (Mylicon) chewable tablet 80 mg, 80 mg, Oral, 4x daily PRN, Kelsie Carty DYE HOUSE HAND [COMPLETED] Insert peripheral IV, , , Once AND Saline lock IV, , , Once AND sodium chloride0.9 % flush 10 mL, 10 mL, Intravenous, q12h, 10 mL at 03/01/25 1540 AND sodium chloride 0.9 % flush 10 mL, 10 mL, Intravenous, PRN, Kelsie Carty DYE HOUSE HAND O: Visit Vitals BP 130/79 (BP Location: [...] regurgitation. Tricuspid Valve: The leaflets appear thickened. [place] TV endocarditis post valve repair with a [...] is no recent study available for direct mukj-gl-lemd comparison. 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 Ptalso with h/o TV IE in 2019 for which he had TV leaflet repair and De Lucas procedure at [facility] Pt was incarcerated at the time, and [...] inage in several years. Pt seen at [facility] 02/24/2025. 02/24/2025 CT showed 2.4x2.1x2.6cm abscess [...] [facility] SUBSTANCE ABUSE: Illicit: H/o IVDA, polysubstance abuse. [...] therapy. For now, while inpatient at [facility]: Continue Cefazolin 2g IV q8h [...] appointment in order to complete registration paperwork.) [facility] (Infectious Diseases Clinic) [address] [place] [id number] RECREATIONAL THERAPIST: . FAX: [facility] Bone and Joint Consult Service [...] arms away from your body. * [facility] - Donna Rosario RN - 03/02/2025 10:43 AM EDT Images from the original note were not included. [id number] Understanding Wound Separation After Surgery (Wound Dehiscence) [...] of the opening. How to say it eep-PRNA-ignap How wound dehiscence happens A wound can [...] all of the wound is open ?? [place] or stitches are broken ?? Pain ?? [...] out Last Reviewed Date: 2024 00:00:00 ?? [id number] [employer]. All rights reserved. This information is not intended as a substitute for professional medical care. Always follow your healthcare professional's instructions. * Consults - Asia Neumann RD - 03/02/2025 9:48 AM EDT Adult Nutrition Evaluation Note Alex Amaya 34 y.o. male CSN: [id number] Room/Bed 119/119A Nutrition evaluation type: assessment Reason for evaluation: [facility] course: 34 yo male transferred to from [facility] for evaluation of chronic sternotomy [...] suboxone, infectious endocarditis requiring tricuspid valverepair in [place] in 2019. Medical History[1] Surgical History[2] Social [...] (260 lb 12.9 oz) BMI (Calculated): 33.47 [place] Body Weight (kg): 86.4 Percent [place] Body Weight: 137 Adjusted Body Weight (kg): 94.4 Estimated Needs: Metabolic Cart Study Results: Current Nutrition Intake: Diet Supplements: None Diet Order: Adult Diet Diet Texture: Regular Percent Meals Eaten (%): 100% x 3 meals Diet Experience and Nutrition History: Diet Education Provided: Will monitor Pertinent home medications: Reviewed Confucianism needs: Nutrition Focused Physical Exam: Physical exam [...] with nl RV fx. TV leaflets thickened. [place] TV endocarditis post valve repair with a DeVega Procedure at [facility] (2019). There appears to be restricted motion/malcoaptation involving the septal leaflet. There is no tricuspid valve vegetation. There is severe tricuspid regurgitation. There is systolic flow reversal of the hepatic veins consistent with significant tricuspid valve regurgitation. OUD (POA) Post-Operative Pain - continue home [facility]oxone - [facility] Obesity (POA) - BMI 33.88 - complicates all aspects of care Plan: - Continue IV abx per ID - Continue wound vac - Will need PICC Cardiothoracic Surgery [phone] * Progress Notes - Estefania Salguero - 03/01/2025 8:08 AM EDT Case Management Adult Progress Note Alex Amaya 34 y.o. male CSN: [id number] Admission: 02/25/2025 2:42 AM Primary Problem: Sternal [...] IV Access: pending Patient Specific Outpatient Circumstances: [address] [place], [place] [id number] Family Support: Extended Emergency Contact Information Primary Emergency Contact: Mary Lemus Mobile Relation: Significant Other Preferred language: Hungarian Freight Team Associate needed? No Contact information: Alex Amaya -[phone] Afua Lemus (pt's S.O. -will administer IV abx) - [phone] Outpatient services (including home infusion, home health, [...] PICC care/labs;patient is requesting to go to [facility] close to home . After [...] via secure chat or staff messaging in [facility]. This note is not the final recommendations [...] mg, Oral, q6h PRN, Carloz Kelsie A, DYE HOUSE HAND ceFAZolin (Ancef) injection 2 g, 2 g, Intravenous, q8h, August Cartya Gilbert, DYE HOUSE HAND, 2 g at 02/28/25 0908 docusate sodium (Colace) capsule 100 mg, 100 mg, Oral, BID, August Cartya Gilbert, DYE HOUSE HAND, 100 mg at 02/27/25 2139 heparin (porcine) [...] mg, Oral, 4x daily PRN, Kelsie Carty DYE HOUSE HAND [COMPLETED] Insert peripheral IV, , , Once AND Saline lock IV, , , Once AND sodium chloride0.9 % flush 10 mL, 10 mL, Intravenous, q12h, 10 mL at 02/28/25 0345 AND sodium chloride 0.9 % flush 10 mL, 10 mL, Intravenous, PRN, Kelsie Carty DYE HOUSE HAND O: Visit Vitals BP 134/77 (BP Location: [...] regurgitation. Tricuspid Valve: The leaflets appear thickened. [place] TV endocarditis post valve repair with a [...] is no recent study available for direct vepy-qs-zles comparison. 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 Pt was incarcerated at the time, and post-discharge developed chronic drainage from cephalad portion of sternal wound. Pt reportedly had I&Ds at [facility] [place]. Wound subsequentlyhas open and closed several times since 2021, including in December 2024. On/around 02/19/2025, wound again ruptured with large amount of purulent drainage, which pt described as largest amount of renata inage in several years. Pt seen at [facility] 02/24/2025. 02/24/2025 CT showed 2.4x2.1x2.6cm abscess [...] [facility] ([place]) SUBSTANCE ABUSE: Illicit: H/o IVDA, polysubstance abuse. [...] therapy. For now, while inpatient at [facility]: Continue Cefazolin 2g IV q8h [...] CK if patient is on Daptomycin IV. [facility] Bone and Joint Consult Service will follow while inhouse. (If patient does leave AMA, then they will need to find another ID specialist to manage their care.) The following complex inpatient infectious disease services were performed today: Complex antimicrobial therapy counseling and treatment * Progress Notes - Kelsie Carty, DYE HOUSE HAND - 02/28/2025 11:30 AM EDT CVT Progress [...] BID heparin (porcine), 5,000 Units, Subcutaneous, q8h SALU ibuprofen, 600 mg, Oral, q6h SAUL lidocaine, [...] with nl RV fx. TV leaflets thickened. Wales TV endocarditis post valve repair with a DeVega Procedure at [facility] (2019). There appears to be restricted motion/malcoaptation involving the septal leaflet. There is no tricuspid valve vegetation. There is severe tricuspid regurgitation. There is systolic flow reversal of the hepatic veins consistent with significant tricuspid valve regurgitation. OUD (POA) Post-Operative Pain - continue home Suboxone - [facility] Obesity (POA) - BMI 33.88 - complicates all aspects of care Plan: - continue IV abx per ID - continue wound vac Cardiothoracic Surgery [phone] * Care Plan - Nasra Jasmine, RN [...] needed in the future. Mayelin Caruso PharmD, [facility] Clinical Pharmacist - Cardiology Contact via secure [...] Elizalde, RuD - 02/27/2025 2:47 PM EDT [facility] HCV Protocol Exclusion ED - [...] of HCV workup. Branden Elizalde, Pharm D. [facility] ED [facility] via secure chat [...] mg, 80 mg, Oral, 4x daily PRN, Cassiyd Baptiste MD Insert peripheral IV, , , [...] regurgitation. Tricuspid Valve: The leaflets appear thickened. Wales TV endocarditis post valve repair with a [...] is no recent study available for direct yjja-xq-hezz comparison. 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 Pt was incarcerated at the time, and post-discharge developed chronic drainage from cephalad portion of sternal wound. Pt reportedly had I&Ds at [facility] facility. Wound subsequentlyhas open and closed several times since 2021, including in December 2024. On/around 02/19/2025, wound again ruptured with large amount of purulent drainage, which pt described as largest amount of renata inage in several years. Pt seen at [facility] 02/24/2025. 02/24/2025 CT showed 2.4x2.1x2.6cm abscess [...] [facility] SUBSTANCE ABUSE: Illicit: H/o IVDA, polysubstance abuse. [...] therapy. For now, while inpatient at [facility]: D/c Vanco and Zosyn Start [...] Note Alex Amaya 34 y.o. male CSN: [id number] Admission: 02/25/2025 2:42 AM Primary Problem: Sternal wound dehiscence, initial encounter PCP: Pcp, No Emergency Contact: Extended Emergency Contact Information Primary Emergency Contact: Mary Lemus Mobile Relation: Significant Other Preferred language: Hungarian Freight Team Associate needed? No Insurance: Primary Visit Coverage Payer Plan Sponsor Code Group Number Group Name AETNA AETNA OPEN CHOICE ACCESS [id number] Primary Visit Coverage Subscriber Subscriber ID Subscriber Name Subscriber SSN Subscriber Address [id number] Jose LuisAlex Timothy [id number] [address] [place] [address] Secondary Visit Coverage Payer Plan Sponsor Code Group Number Group Name WELL[employer] MEDICAID WELLCARE MEDICAID Secondary Visit Coverage Subscriber Subscriber ID Subscriber Name Subscriber N Subscriber Address [id number] Alex Amaya [id number] [address] [place] [address] Patient information: Primary Caregiver: Self Accompanied by/Relationship: Mary Lemus ([phone]) Support System: Immediate family Daily Living Activities: Functional Status: Independent Living Arrangements: Spouse/Significant other, Children (5 y.o. child) Type of Residence: Private residence, Single Level (1-2 DANIS) [address] [id number] Current DME: Equipment Currently Used at Home: [...] Dialysis Services: N/A Living Will/Advance Directive/Power of House Designer /Guardian: Have you reviewed your Advance Directive [...] pt accompanied by significant other Mary Lemus ([phone]). Pt does not have a POA/LW/AD. Pt lives with s/o and their 5 y.o. child in a single-story home with 1-2 ADNIS; address in chart confirmed. Pt reports he [...] DC. Pt has never worked with an LOW PRESSURE BOILER TENDER and has never stayed anywhere overnight for physical rehab. Pt prefers [facility] in [place] as his pharmacy. Pt confirms insurance listed [...] sounds present and normoactivex 4 quadrants SKIN: Iantha, warm, and dry. No rash, sores, or [...] Post-Operative Pain - continue home Suboxone - [facility] Obesity (POA) - BMI 32 - complicates all aspects of care Plan: - continue IV abx per ID - continue wound vac - TTE completed this morning, read pending Cardiothoracic Surgery [phone] * Discharge Instr - Other Orders - Donna Rosario RN - 02/27/2025 10:28 AM EDT Please arrive 30 minutes early for your appointment with Dr. Daniel Prior to your appointment, go to the radiology department on the 1st floor of the [facility] near [facility] for a [...] your incisions. Do NOT lift, push or thread puller 5 pounds for six weeks. Do [...] Donna Rosario CT Surgery Nurse Navigator at [phone] Wednesday through Wednesday 7am- 3:30pm [facility] [phone] after 3:30 pm, weekends and holidays - ask for the CT surgeon precision farming specialist. * Progress Notes - Alejandro Sandoval PA [...] sounds present and normoactivex 4 quadrants SKIN: Iantha, warm, and dry. No rash, sores, or [...] Post-Operative Pain - continue home Suboxone - [facility] Obesity (POA) - BMI 32 - complicates all aspects of care Plan: - continue IV abx per ID - continue wound vac Cardiothoracic Surgery [phone] * Anesthesia PACU Signout - Umberto Davis [...] CORONARY ARTERY BYPASS GRAFTING: Date: 02/26/2025 Location: [place] OR Name: Alex Amaya, : 1990, Pre-operative [...] suboxone, infectious endocarditisrequiring tricuspid valve repair in [place] in 2019. He states that he had [...] midnight. Pacheco Ocasio MD Cardiothoracic Surgery Pager: [phone] * Significant Event - Alejandro Sandoval PA - 02/25/2025 1:35 PM EDT Patient seen and evaluated with Dr Daniel. Will go to OR tomorrow for chest washout and removal of sternal plates with Dr Daniel. Pre-op orders placed. Consent obtained and placed in paper chart. NPOp [place]. CT Surgery [phone] * Consults - Kinga Mc MD - [...] prior) who presents as a transfer from with new and worsened superior sternotomy drainage. MDET team were consulted to provide recommendations on therapy and management. Mr. Amaya first noted repeat drainage on 02/19/25, associated with fevers, chills, and swelling. He went to a local ED and was discharged. Given no change he then went to . CT Chest showed a fluid collection anterior to the sternum and was transferred to for ID follow up and CT surgery evaluation. Upon arrival to on 02/25 blood cultures were taken and have NGTD. Wound cultures have a GS positive for GPC in pairs and clusters. He was started on Vancomycin and Zosyn, [facility]. Additional pertinent admission workup includes Hep C antibodypositivity, HIV non-reactive, CRP of 282.5, and an ESR of 65. When spoken to Mr. Amaya endorses persistent drainage from his sternal wound. In the room therewas considerable drainage on his dressing, which ID team changed. He endorsed the above history anddescribes following with a marzipan maker Dr. Park. Social: Was recently incarcerated until [...] Value Units Date/Time Blood Culture (Aerobic/Anaerobet Set) [[id number]] Collected: 02/25/25317 Order Status: Completed Specimen: Blood, Venous Updated: 02/25/25 0607 Culture Culture in lab Blood Culture (Aerobic/Anaerobet Set) [[id number]] Collected: 02/25/25317 Order Status: Completed Specimen: Blood, Venous Updated: 02/25/25 0601 Culture Culture in lab Wound Culture and Gram Stain [[id number]] (Abnormal) Collected: 02/25/25 0446 Order Status: Completed [...] prior) who presents as a transfer from with new and worsened superior sternotomy drainage. [...] injection 5,000 Units 5,000 Units Subcutaneous q8h [facility] Cassidy Baptiste MD 5,000Units at 02/25/25 0446 [...] ID will follow. Sherman Gonzáles MD Pager: [phone] I spent greater than 110 minutes performing the following components of the encounter (on the day of the encounter): reviewing history, examining the patient, reviewing imaging and/or labs, echo, ECGand/or other imaging results, counseling the patient and family/caregiver, communicating with otherhealth daycare provider. The patient is receiving directed antibiotic therapy which requires monitoring of daily labs for toxicities. Greater than 50% of the time spent on the encounter was [id number] providing direct patient care, counseling for the [...] as appropriate. Thank you, Marcos Hopper, PharmD, [facility] Clinical Staff Pharmacist * H&P [...] suboxone, infectious endocarditisrequiring tricuspid valve repair in [place] in 2019. He states that he had [...] and got worse so he went to where he was found to have the [...] Tobacco Use: Medium Risk (01/09/2025) Received from [facility] Patient History Smoking Tobacco Use: Former Smokeless [...] suboxone, infectious endocarditisrequiring tricuspid valve repair in [place] in 2019. He states that he had [...] and got worse so he went to where he was found to have the [...] infectious endocarditis requiring open heart surgery at [facility] (2019) c/b multiple episodes of [...] and got worse so he went to where he was found to have the chest abscess. He was transferred to 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 used: No Patient History Medical History[1] Surgical [...] 02/25/2025 0419 Date/Time Order Dose Route Action 02/25/2025332 EDT lactated Ringer's infusion 1,000 mL 1,000 [...] Blood Culture (Aerobic/Anaerobet Set) STAT In process KANWALKARIANGIE Hunt 02/25/25 030 Hepatitis C Antibody - ED [...] rate, automated STAT Final result KANWAL [place] A 02/25/25 030 Wound Culture and Gram Stain STAT Collected [place] [facility] ED Course as of 02/25/25 0511 Sun February 25, 2025 0307 On initial evaluation, pt states that [JG] [address], evidence of extensive subcutaneous edema and infection in the anterior chest wall with fluid collection [JG] 0314 Reviewed of records from , given 1 g ceftriaxone at 19:47. Tmax [...] None Disposition Admit Admitting/Attending Physician: SHERLYN DANIEL [[id number]] Provider Care Team: CVT CARDIAC SURGERY [[id number]] Are they the primary team?: Yes [1] - Virginia Lewis MD Internal Medicine, PGY-2 [id number] or via [facility] chat [1] Past Medical History: Diagnosis Date [...] Description 03/26/2025 11:40 AM EDT Office Visit [facility] [address], [address] [place] [address] Sherlyn Daniel MD [address] [place] [address] 03/27/2025 9:00 AM EDT Office Visit [facility] [address] [place] [address] Keny Chin MD [address] [place] [address] 04/10/2025 9:00 AM EDT Office Visit [facility] [address] [place] [address] Leela Chin MD [address] [place] [address] Pending Results Name Type Priority Associated Diagnoses [...] Roper RN Authorized by: Sherlyn Daniel MD [place] Protocol: Verbal consent obtained?: Yes Written consent [...] vein Patient position: Flat Catheter Lot #: [id number] Catheter guide tour: [employer] Catheter placed: Single lumen Catheter size: 4 Fr Catheter trimmed length: 51 Catheter threaded length: 51 Vein placed in: SVC Catheter cm indwellin Catheter cm outside: 0 Placement confirmed by: [employer]ift[employer] 3CG technology Pre-procedure: Landmarks identified Ultrasound guidance: [...] * Morphology (03/03/2025 2:11 AM EDT) Pathologist [facility] RBC Morphology RBC Morphology Consistent with [...] R esult [facility] [address] [place] [address] * (ABNORMAL) Manual Differential (03/03/2025 2:11 AM EDT) Pathologist [facility] Blasts % 0 % LAB HEMATOLOGY METHOD [...] 03/03/2025 2:25 AM EDT us Kelsie Carty DYE HOUSE HAND LAB BLOOD ORDERABLES Final R esult [facility] [address] [place] [address] * (ABNORMAL) Hepatic function panel (03/03/2025 2:11 [...] 03/03/2025 2:23 AM EDT us Kelsie Carty DYE HOUSE HAND LAB BLOOD ORDERABLES Final R esult [facility] [address] [place] [address] * Magnesium, Plasma (03/03/2025 2:11 AM EDT) Magnesium, Plasma 2.2 1.9 - 2.4 mg/dL 03/03/2025 2:55 AM EDT [facility] Blood Venous blood specimen / Unknown Venipuncture / Unknown 03/03/2025 2:11 AM EDT 03/03/2025 2:23 AM EDT us Kelsie Carty DYE HOUSE HAND LAB BLOOD ORDERABLES Final R esult Performing Organization Address City/[facility]/ZIP Co de Phone Number [facility] [address] [place] [address] * CBC and Differential (03/03/2025 2:11 AM [...] AM EDT 03/03/2025 2:25 AM EDT Narrative [facility] - 03/03/2025 3:15 AM EDT [...] Final R esult [facility] [address] [place] [address] * Blood Culture (Aerobic/Anaerobet Set) (03/03/2025 2:11 [...] O RDERABLES Final Result Performing Organization Address City/[facility]/ZIP Co de Phone Number [facility] [address] [place] [address] * Blood Culture (Aerobic/Anaerobet Set) (03/03/2025 2:11 AM EDT) Culture No growth at day 5 GEENA 03/08/2025 4:02 AM EDT [facility] Blood Venous blood specimen / Unknown Venipuncture / Unknown 03/03/2025 2:11 AM EDT 03/03/2025 3:03 AM EDT us Kelsie Carty APRN LAB MICROBIOLOGY - GENERAL O RDERABLES Final Result Performing Organization Address City/[facility]/ZIP Co de Phone Number [facility] [address] [place] [address] * (ABNORMAL) CBC W/O Differential (03/01/2025 3:55 [...] ORDERABLES Final Result [facility] [address] [place] [address] * (ABNORMAL) Basic metabolic panel (03/01/2025 3:55 [...] BLOOD ORDERABLES Final Result Performing Organization Address City/[facility]/ZIP Co de Phone Number [facility] [address] [place] [address] * Blood Culture (Aerobic/Anaerobet Set) (03/01/2025 3:45 AM EDT) Culture No growth at day 5 GEENA 03/06/2025 5:01 AM EDT [facility] Blood Venous blood specimen / Unknown Venipuncture / Unknown 03/01/2025 3:45 AM EDT 03/01/2025 4:45 AM EDT us Kelsie Carty APRN LAB MICROBIOLOGY - GENERAL O RDERABLES Final Result Performing Organization Address City/[facility]/ZIP Co de Phone Number [facility] [address] [place] [address] * Blood Culture (Aerobic/Anaerobet Set) (03/01/2025 3:30 AM EDT) Culture No growth at day 5 GEENA 03/06/2025 5:01 AM EDT [facility] Blood Venous blood specimen / Unknown Venipuncture / Unknown 03/01/2025 3:30 AM EDT 03/01/2025 4:45 AM EDT us Kelsie Carty APRN LAB MICROBIOLOGY - GENERAL O RDERABLES Final Result Performing Organization Address [facility]/ZIP Co de Phone Number [facility] [address] [place] [address] * Magnesium (02/28/2025 4:03 AM EDT) Magnesium, Plasma 2.2 1.9 - 2.4 mg/dL 02/28/2025 4:37 AM EDT [facility] Blood Venous blood specimen / Unknown Venipuncture / Unknown 02/28/2025 4:03 AM EDT 02/28/2025 4:10 AM EDT Sherlyn Daniel MD LAB BLOOD ORDERABLES Final Res ult Performing Organization Address [facility]/ZIP Co de Phone Number [facility] [address] [place] [address] * (ABNORMAL) CBC W/O Differential (02/28/2025 4:03 [...] Final Res ult [facility] [address] [place] [address] * (ABNORMAL) Basic metabolic panel (02/28/2025 4:03 [...] Final Res ult [facility] [address] [place] [address] * PERIPHERAL IV (SMARTFORM LINK) (02/27/2025 6:13 [...] ADULT TRANSTHORACIC COMPLETE (02/27/2025 10:50 AM EDT) [facility] BSA 2.45 m2 HERNESTO ISCV Height 188.0 [...] regurgitation. Tricuspid Valve: The leaflets appear thickened. Wales TV endocarditis post valve repair with a [...] is no recent study available for direct [id number]-bs-[id number] comparison. Left Ventricle Based on the linear [...] stenosis. Tricuspid Valve The leaflets appear thickened. Wales TV endocarditis post valve repair with a [...] is no recent study available for direct mxna-kd-gegm comparison. Wall Scoring Baseline Score Index: 1.00 [...] Final R esult [facility] [address] [place] [address] * (ABNORMAL) Lipid panel (02/27/2025 4:33 AM [...] Final R esult [facility] [address] [place] [address] * Hemoglobin A1c (02/27/2025 4:33 AM EDT) [...] Adults <6.0% Children and Adolescents <7.5% Source: [place] Diabetes Association. Standards of medical care in diabetes,2017. Diabetes Care.2017:40 (suppl 1):S1-S135. us Alejandro AARON LAB BLOOD ORDERABLES Final R esult [facility] [address] [place] [address] * (ABNORMAL) Basic metabolic panel (02/27/2025 4:33 AM EDT) [facility] Glucose, Plasma 128(H) 74 - 99 mg/dL [...] Res ult [facility] [address] [place] [address] * (ABNORMAL) CBC W/O Differential (02/27/2025 4:33 [...] ORDERABLES Final Res ult Performing Organization Address City/[facility]/[place] [address] * Blood Culture (Aerobic/Anaerobet Set) (02/27/2025 4:30 AM EDT) Culture No growth at day 5 GEENA 03/04/2025 5:01 AM EDT [facility] Blood Venous blood specimen / Unknown Venipuncture / Unknown 02/27/2025 4:30 AM EDT 02/27/2025 4:47 AM EDT Sherman Gonzáles MD LAB MICROBIOLOGY - GENERAL O RDERABLES Final Result Performing Organization Address City/[facility]/[place] [address] * Blood Culture (Aerobic/Anaerobet Set) (02/27/2025 4:00 AM EDT) Culture No growth at day 5 GEENA 03/04/2025 5:01 AM EDT [facility] Blood Venous blood specimen / Unknown Venipuncture / Unknown 02/27/2025 4:00 AM EDT 02/27/2025 4:47 AM EDT Sherman Gonzáles MD LAB MICROBIOLOGY - GENERAL O RDERABLES Final Result Performing Organization Address City/[facility] [place] [address] * XR Chest 1 View (02/27/2025 2:37 [...] ORD ERABLES Final Result Performing Organization Address City/[facility]/ZIP Co de Phone Number [facility] [address] [place] [address] * Anaerobic Culture (02/26/2025 10:10 AM EDT) Culture No anaerobes isolated 03/03/2025 5:50 AM EDT [facility] Foreign Body Bone structure of sternum / Unknown 02/26/2025 10:10 AM EDT 02/26/2025 11:21 AM EDT Comment:Pre-op diagnosis: Chest wall abscess [L02.213] Sherlyn Daniel MD LAB MICROBIOLOGY - GENERAL ORD ERABLES Final Result Performing Organization Address [facility]/ZIP Co de Phone Number [facility] [address] [place] [address] * (ABNORMAL) POCT arterial blood gas gem (02/26/2025 9:42 AM EDT) pH, Arterial 7.42 7.35 - 7.45 02/26/2025 9:44 AM EDT [facility] pCO2, Arterial 41 32 - 45 mm Hg 02/26/2025 9:44 AM EDT [facility] pO2, Arterial 105 83 - 108 mm Hg 02/26/2025 9:44 AM EDT [facility] SO2, Arterial 99(H) 94 - 98 % 02/26/2025 9:44 AM [facility] Base Excess, Arterial 1.9 -2 - 3 mmol/L 02/26/2025 9:44 AM [facility] HCO3, Arterial 26.6(H) 22 - 26 mmol/L 02/26/2025 9:44 AM [facility] Total Hemoglobin, Arterial, Whole Blood 13.6(L) 13.7 - 17.5 g/dL 02/26/2025 9:44 AM [facility] Hematocrit, Arterial 41.0 40 - 51.0 % 02/26/2025 9:44 AM [facility] Sodium, Arterial 135(L) 136 - 145 mmol/L 02/26/2025 9:44 AM [facility] Potassium, Arterial 4.1 3.6 - 4.9 mmol/L 02/26/2025 9:44 AM [facility] Chloride, Whole Blood 104 97 - 107 mmol/L 02/26/2025 9:44 AM [facility] Glucose, Arterial 106(H) 74 - 99 mg/dL 02/26/2025 9:44 AM [facility] Ionized Calcium, Arterial 4.7 4.6 - 5.1 mg/dL 02/26/2025 9:44 AM [facility] Lactate, Arterial 0.6 0.5 - 1.6 mmol/L 02/26/2025 9:44 AM [facility] Body Temperature 37.0 Celsius 02/26/2025 9:44 AM [facility] pH, Temp Corrected, Arterial 7.42 7.35 - 7.45 02/26/2025 9:44 AM [facility] pCO2, Temp Corrected, Arterial 41 32 - 45 mm Hg 02/26/2025 9:44 AM [facility] pO2, Temp Corrected, Arterial 105 83 - 108 mm Hg 02/26/2025 9:44 AM [facility] Machine Stuffer Automatic ID Carina Jordan 02/26/2025 9:44 AM [facility] Blood, Arterial Whole blood specimen / Unknown 02/26/2025 9:42 AM EDT 02/26/2025 9:44 AM EDT us Sherlyn Daniel MD LAB POINT OF CARE TE ST DOCKED DEVICE UNSOLICITED RESULTS Final Result [facility] [address] [place] [address] * (ABNORMAL) Abscess Culture and Gram Stain [...] ERABLES Final Result [facility] [address] [place] [address] * Fungal Culture, Routine (02/26/2025 9:34 AM EDT) Culture No Fungal Growth at 1 Week 03/06/2025 9:03 AM EDT [facility] Swab Bone structure of sternum / Unknown 02/26/2025 9:34 AM EDT 02/26/2025 11:01 AM EDT Comment:Pre-op diagnosis: Chest wall abscess [L02.213] Sherlyn Daniel MD LAB MICROBIOLOGY - GENERAL ORD ERABLES Final Result [facility] [address] [place] [address] * Anaerobic Culture (02/26/2025 9:34 AM EDT) Culture No anaerobes isolated 03/03/2025 5:50 AM EDT [facility] Swab Bone structure of sternum / Unknown 02/26/2025 9:34 AM EDT 02/26/2025 11:01 AM EDT Comment:Pre-op diagnosis: Chest wall abscess [L02.213] Sherlyn Daniel MD LAB MICROBIOLOGY - GENERAL ORD ERABLES Final Result Performing Organization Address City/[facility] [place] [address] * Type and screen (02/25/2025 4:54 PM [...] ORDERABL ES Final Result Performing Organization Address City/[facility]/ZIP Co de Phone Number [facility] [address] [place] [address], * (ABNORMAL) Wound Culture and Gram Stain [...] ERABLES Final Result [facility] [address] [place] [address] * (ABNORMAL) Bacterial ID Gram Positive (02/25/2025 [...] ERABLES Final Result [facility] [address] [place] [address] * Hepatitis C Virus (HCV) Quantitative PCR - ED (02/25/2025 3:18 AM EDT) [facility] Hepatitis C Virus (HCV) Quantitative Interpretation Not Detected Not Detected. 02/27/2025 2:45 PM EDT [facility] Blood Venous blood specimen / Unknown [...] ORDERABLES Final Res ult Performing Organization Address [facility]/[place] [address] * ED HIV 1/2 Antibody/Antigen Screen w/Reflex to HIV 1/2 Differentiation (02/25/2025 3:18 AM EDT) Pathologist [facility] HIV 1 & 2 Antibody/Antigen Screen [...] Final Res ult [facility] [address] [place] [address] * (ABNORMAL) Hepatitis C Antibody - ED (02/25/2025 3:18 AM EDT) Pathologist [facility] Hepatitis C Antibody Positive(A ) Negative 02/25/2025 4:40 AM EDT [facility] Blood Venous blood specimen / Unknown Venipuncture / Unknown 02/25/2025 3:18 AM EDT 02/25/2025 3:53 AM EDT us Franco Guillory MD LAB BLOOD ORDERABLES Final Res ult [facility] [address] [place] [address] * (ABNORMAL) Blood Culture (Aerobic/Anaerobet Set) (02/25/2025 [...] period. If workup required, contact bacteriology at [facility]. This organism may be associated [...] ORD ERABLES Final Result Performing Organization Address City/[facility]/ZIP Co de Phone Number [facility] [address] [place] [address] * (ABNORMAL) Blood Culture (Aerobic/Anaerobet Set) (02/25/2025 3:18 AM EDT) Culture Staphylococcus aureus(AA) 03/03/2025 12:34 PM EDT [facility] Comment: For susceptibility results refer to: - [id number] Isolated from aerobic and anaerobic culture bottles. [...] ORD ERABLES Final Result Performing Organization Address City/[facility]/ZIP Co de Phone Number [facility] [address] [place] [address] * (ABNORMAL) Sed rate, automated (02/25/2025 3:18 AM EDT) Sedimentation Rate 65(H) <15 mm/hr 2024 3:54 AM EDT [facility] Blood Venous blood specimen / Unknown Venipuncture / Unknown 02/25/2025 3:18 AM EDT 02/25/2025 3:40 AM EDT Franco Guillory MD LAB BLOOD ORDERABLES Final Res ult Performing Organization Address City/[facility] Co de Phone Number [facility] [address] [place] [address] * (ABNORMAL) C-Reactive protein (02/25/2025 3:18 AM [...] ORDERABLES Final Res ult Performing Organization Address [facility] Co de Phone Number [facility] [address] [place] [address] * Phosphorus (02/25/2025 3:18 AM EDT) Phosphorus, Plasma 2.7 2.5 - 4.5 mg/dL 02/25/2025 4:23 AM EDT [facility] Blood Venous blood specimen / Unknown Venipuncture / Unknown 02/25/2025 3:18 AM EDT 02/25/2025 3:53 AM EDT Franco Guillory MD LAB BLOOD ORDERABLES Final Res ult [facility] [address] [place] [address] * Magnesium (02/25/2025 3:18 AM EDT) Magnesium, Plasma 2.2 1.9 - 2.4 mg/dL 02/25/2025 4:23 AM EDT [facility] Blood Venous blood specimen / Unknown Venipuncture / Unknown 02/25/2025 3:18 AM EDT 02/25/2025 3:53 AM EDT us Franco Guillory MD LAB BLOOD ORDERABLES Final Res ult Performing Organization Address [facility] Co de Phone Number [facility] [address] [place] [address] * (ABNORMAL) CMP (02/25/2025 3:18 AM EDT) [...] Final Res ult [facility] [address] [place] [address] * (ABNORMAL) CBC w/diff (02/25/2025 3:18 AM [...] Final Res ult [facility] [address] [place] [address] documented in this encounter Visit Diagnoses Diagnosis [...] Oral, Every 6 hours PRN, Starting on Sbyil 03/01/25 at 0800, Until Wed03/06/25 at 1535, [...] mL OR irrigation Continuous PRN, Starting on Wed02/26/25 at 0947, Until Wed02/26/25 at 1044, Routine [...] RN) 0253 (Given - Provider: Marsha Miranda RN)102 (Given - Provider: Gallo Bhatt RN)1836 (Given - Provider: Gallo Bhatt RN) 0127 (Given - Provider: Gulshan Toney RN)1006 (Given - Provider: Gallo Bhatt RN) docusate sodium (Colace) capsule 100 mg 100 mg, Oral, 2 times daily, First dose on Wed02/25/25 at 0900, Until Discontinued, Routine 926 (Not Given - Provider: Mayelin Dorsey RN - Reason: Patient/family refused)214 (Not Given - Provider: aMrsha Miranda RN - Reason: Patient/family refused) 08 [...] Until Discontinued, Administer over 12 Hours, Routine 09 (Medication Removed - Provider: Mayelin Dorsey RN)2030 [...] Mayelin Dorsey, SEBASTIAN)1814 (Given - Provider: Mayelin Dorsey, SEBASTIAN)2214 (Given - Provider: Marsha Miranda RN) 0835 [...] 0425, Until Discontinued, Routine 0334 [facility]: Yared Cartwright RN)1814 (Given - Provider: Mayelin Dorsey RN) 0405 (Given - Provider: Marsha Miranda RN)1535 (Given - Provider: Gallo Bhatt RN) 0358 (Given - Provider: Gulshan Toney RN) sodium chloride 0.9 % flush 10 mL 10 mL, Intravenous, Every 12 hours, First dose on 03/04/25 at 1745, Until Discontinued, Routine 181 (Given - Provider: Mayelin Dorsey RN) 0618 [...] Bhatt, SEBASTIAN)1633 (Given - Provider: Gallo Bhatt, SEBASTIAN)2237 (Given - Provider: Gulshan Toney RN) 0609 (Given - Provider: Gulshan Toney RN)1006 (Given - Provider: Gallo Bhatt RN) simethicone (Mylicon) chewable tablet 80 mg 80 mg, Oral, 4 times daily PRN, Starting on 02/25/25 at 0419, Until Tu03/06/25 at 1535, Routine, flatulence sodium chloride 0.9 [...] documented as of this encounter Care Teams Supervisor Lace Tearing Relationship Specialty Start Date End Date Pcp, No [address] [place] [address] PCP - General Family Medicine 02/25/25 documented as of this encounter
--- OUTSIDE RECORDS SUMMARY | 2025-02-28 22:33 | XMS_ITS | Continuity of Care Document ---
Author Organization [facility] Phone Care Team Providers Care Grounds Maintenance Supervisor Name Role Phone BECKY VICTORIA Admitting Unavailable ELPIDIO STEINER Unavailable ADRIANNE MOORE I Primary Care Unavailable BECKY VICTORIA Primary Attending Unavailable ALLERGIES AND ADVERSE REACTIONS ALLERGIES AND ADVERSE REACTIONS Code System Allergy Substance Adverse Reaction Date Reaction (Severity) Comment Status Reported By Updated By No Known Allergies [email or web address] on February 25, 2025 3:51:54 AM UT RESULTS Patient: JAMES RUBIO Date of : 1990 LABORATORY RESULTS ORDER 300: CBC WITH AUTO DIF F (LOINC: 21976-8) ORDER DATE: February 24, 2025 11:40:00 PM UT Specimen Source: WHOLE BLOOD Specimen Type: Whole blood s ample PERFORMING LAB: [address] [id number] Result Comment: Final Result Date: February 24, 2025 11:47:00 PM UT (TECH: RG) LOINC TEST FLAG [place] [address]-7 Leukocytes [#/volume] in Blood N 8.8 10^3/ul 4.5 10^3/ul - 11.5 10^3/ul February 24, 2025 11:47:00 PM UT (TECH: RG) 80893-7 Erythrocytes [#/volume] in Blood N 5.25 10^6/ul 4.60 10^6/ul - 6.00 10^6/ul February 24, 2025 11:47:00 PM UT (TECH: RG) 718-7 Hemoglobin [Mass/volume] in Blood N 15.4 g/dL 14.0 g/dL - 18.0 g/dL February 24, 2025 11:47:00 PM UT (TECH: RG) 39719-4 Hematocrit [Volume Fraction] of Blood N 46.0 % 40.0 % - 54.0 % February 24, 2025 11:47:00 PM UTC (TECH: RG) 87083-7 MCV [Entitic volume] N 87.6 fL 80 fL - 100 fL February 24, 2025 11:47:00 PM UTC (TECH: RG) 25949-3 MCH [Entitic mass] N 29.3 pg 26 pg - 32 pg February 24, 2025 11:47:00 PM UTC (TECH: RG) 87596-5 MCHC [Mass/volume] N 33.5 g/dl 32 g/d l - 36 g/dl February 24, 2025 11:47:00 PM UTC (TECH: RG) 85480-9 Erythrocyte distribution width [Entitic volume] N 13.0 % 11.5 % - 14.5 % February 24, 2025 11:47:00 PM UTC (TECH: RG) 777-3 Platelets [#/volume] in Blood by Automated count N 180 10^3/ul 150 10^3/ul - 450 10^3/ul February 24, 2025 11:47:00 PM UTC (TECH: RG) 75115-3 Mean platelet component [Mass/volume] in Blood by calculation N 10.2 fL 6.8 fL - 10.2 fL February 24, 2025 11:47:00 PM UTC (TECH: RG) 50625-6 Manual Differential panel - Blood N NOT INDICATED February 24, 2025 11:47:00 PM UTC (TECH: RG) 22750-5 Neutrophils [#/volume] in Blood H 79.8 % 50 % - 70 % February 24, 2025 11:47:00 PM UTC (TECH: RG) 59521-6 Lymphocytes [#/volume] in Blood L 9.6 % 18 % - 42 % February 24, 2025 11:47:00 PM UTC (TECH: RG) 17517-7 Monocytes [#/volume] in Blood N 8.6 % 2 % - 11 % February 24, 2025 11:47:00 PM UTC (TECH: RG) 60655-4 Eosinophils [#/volume] in Blood N 1.2 % 1 % - 3 % February 24, 2025 11:47:00 PM UTC (TECH: RG) 67774-7 Basophils/100 leukocytes in Blood N 0.5 % 0.0 % - 2.0 % February 24, 2025 11:47:00 PM UTC (TECH: RG) 762-5 Neutrophils [#/volume] in Urine by Manual count H 7.1 K/uL 2.0 K/uL - 6.9 K/uL February 24, 2025 11:47:00 PM UTC (TECH: RG) 37885-4 Variant lymphocytes [#/volume] in Blood N 0.9 K/uL 0.6 K/uL - 3.4 K/uL February 24, 2025 11:47:00 PM UTC (TECH: RG) 35982-9 Monocytes [#/volume] in Blood N 0.8 K/uL 0.0 K/uL - 0.9 K/uL February 24, 2025 11:47:00 PM UTC (TECH: RG) 60656-4 Eosinophils [#/volume] in Blood N 0.1 K/ul 0.0 K/ul - 0.7 K/ul February 24, 2025 11:47:00 PM UTC (TECH: RG) 27787-9 Basophils [#/volume] in Blood N 0.04 K/uL 0.0 K/uL - 0.2 K/uL February 24, 2025 11:47:00 PM UTC (TECH: RG) ORDER 400: COMPREHENSIVE MET ABOLIC PANEL (LOINC: 22065-0) ORDER DATE: February 24, 2025 11:40:00 PM UTC Specimen Source: PLASMA Specimen Type: Plasma specim en PERFORMING LAB: [address] [id number] Result Comment: Final Result Date: February 24, 2025 11:59:00 PM UTC (TECH: RG) LOINC TEST FLAG RESULT REFERENCE RANGE UPDA BEATRIZ BY 2947-0 Sodium [Moles/volume ] in Blood N 139 mmol/L 136 mmol/L - 145 mmol/L February 24, 2025 11:59:00 PM UTC (TECH: RG) 6298-4 Potassium [Moles/volume] in Blood N 3.8 mmol/L 3.5 mmol/L - 5.1 mmol/L February 24, 2025 11:59:00 PM UTC (TECH: RG) 2069-3 Chloride [Moles/volu me] in Blood N 100 mmol/L 98.0 mmol/L - 107.0 mmol/L February 24, 2025 11:59:00 PM [facility] (TECH: RG) 15003-5 Carbon dioxide, tota l [Moles/volume] in Blood N 25 mmol/L 21 mmol/L - 32 mmol/L February 24, 2025 11:59:00 PM [facility] (TECH: RG) 35895-1 Anion gap 3 in Serum or Plasma H 17.8 mmol/L 5.0 mmol/L - 15.0 mmol/L February 24, 2025 11:59:00 PM [facility] (TECH: RG) 2339-0 Glucose [Mass/volume ] in Blood N 120 mg/dL 70 mg/dL - 120 mg/dL February 24, 2025 11:59:00 PM [facility] (TECH: RG) 3094-0 Urea nitrogen [Mass/volume] in Serum or Plasma N 15 mg/dl 7 mg/dl - 18 mg/dl February 24, 2025 11:59:00 PM [facility] (TECH: RG) 88267-2 Creatinine [Moles/volume] in Serum or Plasma N 1.1 mg/dL 0.8 mg/dL - 1.3 mg/dL February 24, 2025 11:59:00 PM [facility] (TECH: RG) 3097-3 Urea nitrogen/Creatinine [Mass Ratio] in Serum or Plasma N 13.6 Ratio 9 Ratio - 21 Ratio February 24, 2025 11:59:00 PM [facility] (TECH: TapnScrap) 00358-8 Glomerular filtratio n rate/1.73 sq M.predicted [Volume Rate/Area] in Serum or Plasma by Creatinine-based formula (MDRD) N >60 mL/min 60.0 mL/min February 24, 2025 11:59:00 PM [facility] (TECH: RG) 58530-5 Calcium [Mass/volume ] in Blood N 9.5 mg/dL 8.6 mg/dL - 9.8 mg/dL February 24, 2025 11:59:00 PM [facility] (TECH: RG) 64712-3 Bilirubin direct and total panel [Mass/volume] - Serum or Plasma N 0.7 mg/dL 0.2 mg/dL - 1.0 mg/dL February 24, 2025 11:59:00 PM [facility] (TECH: RG) 1920-8 Aspartate aminotransferase [Enzymatic activity/volume] in Serum or Plasma N 16 IU/L 15 IU/L - 37 IU/L February 24, 2025 11:59:00 PM UTC (TECH: RG) 1742-6 Alanine aminotransferase [Enzymatic activity/volume] in Serum or Plasma N 22 IU/L 12 IU/L - 78 IU/L February 24, 2025 11:59:00 PM UTC (TECH: RG) 6768-6 Alkaline phosphatase [Enzymatic activity/volume] in Serum or Plasma N 106 IU/L 46 IU/L - 116 IU/L February 24, 2025 11:59:00 PM UTC (TECH: RG) 2885-2 Protein [Mass/volume ] in Serum or Plasma N 7.6 g/dL 6.4 g/dL - 8.2 g/dL February 24, 2025 11:59:00 PM UT (TECH: RG) 1751-7 Albumin [Mass/volume ] in Serum or Plasma L 3.0 g/dl 3.4 g/dl - 5.0 g/dl February 24, 2025 11:59:00 PM UTC (TECH: RG) 2336-6 Globulin [Mass/volum e] in Serum H 4.6 g/dl 1.3 g/dl - 3.5 g/dl February 24, 2025 11:59:00 PM UTC (TECH: RG) 94973-3 Albumin/Globulin [Ma ss Ratio] in Pleural fluid L 0.7 Ratio 1.0 Ratio - 3.9 Ratio February 24, 2025 11:59:00 PM UT (TECH: RG) 32799-0 Osmolality of Urine by calculation N 280 mOsm/kg 272 mOsm/kg - 295 mOsm/kg February 24, 2025 11:59:00 PM UT (TECH: RG) ORDER 600: LACTIC ACID (LOIN C: 72575-4) ORDER DATE: February 24, 2025 11:40:00 PM UT Specimen Source: NAFL/KOX PL ASMA Specimen Type: Plasma specim en PERFORMING LAB: [address] [id number] Result Comment: Final Result Date: February 25, 2025 12:00:00 AM UT (TECH: RG) LOINC TEST FLAG RESULT [place] [address]-3 Lactate [Moles/volume] in Blood N 0.9 mmol/L 0.4 mmol/L - 1.9 mmol/L February 25, 2025 12:00:00 AM UTC (TECH: RG) ORDER 700: PT PTT (LOINC: 50 391-2) ORDER DATE: February 24, 2025 11:40:00 PM UTC Specimen Source: NA CIT PLAS MA Specimen Type: Plasma specim en with citrate PERFORMING LAB: [address] [id number] Result Comment: Final Result Date: February 24, 2025 11:59:00 PM UTC (TECH: RG) LOINC TEST FLAG RES[place] [address]-1 INR in Platelet poor plasma or blood by Coagulation assay N 10.7 seconds 9.9 seconds - 11.7 seconds February 24, 2025 11:59:00 PM UTC (TECH: RG) 44884-1 INR in Blood by Coagulation assay N 1.0 0.9 - 1.1 February 24, 2025 11:59:00 PM UTC (TECH: RG) 3173-2 aPTT in Blood by Coagulation assay N 27.6 seconds 20 seconds - 30 seconds February 24, 2025 11:59:00 PM UTC (TECH: RG) ORDER 800: UA-CULTURE IF IND ICATED (LOINC: 20165-9) ORDER DATE: February 24, 2025 11:40:00 PM UTC Specimen Source: URINE Specimen Type: Urine specime n PERFORMING LAB: [address] [id number] Result Comment: Final Result Date: February 25, 2025 2:37:00 AM UTC (TECH: RG) LOINC TEST FLAG RESULT REFERENCE RANGE UPDA BEATRIZ BY 5778-6 Color of Urine N YELLOW YELLOW February 022024 2:37:00 AM UTC (TECH: RG) 79008-2 Clarity of Urine N CLEAR CLEAR February 25, 2025 2:37:00 AM UTC (TECH: RG) 87406-0 Glucose [Moles/volume] in Urine N NEGATIVE NEGATIVE February 25, 2025 2:37:00 AM UTC (TECH: RG) 1977-8 Bilirubin.total [Presence] in Urine N NEGATIVE NEGATIVE February 25, 2025 2:37:00 AM UTC (TECH: RG) 19904-8 Ketones [Presence] in Urine N NEGATIVE NEGATIVE February 25, 2025 2:37:00 AM UTC (TECH: RG) 2965-2 Specific gravity of Urine N 1.010 1.00 - >=1.030 February 25, 2025 2:37:00 AM UTC (TECH: RG) 48394-2 Blood [Presence] in Urine by Visual TRACE-INTACT NEGATIVE February 25, 2025 2:37:00 AM UTC (TECH: RG) 2756-5 pH of Urine N 6.5 5 - 8 February 25, 2025 2:37:00 AM UTC (TECH: RG) 2887-8 Protein [Presence] in Urine TRACE NEGATIVE February 25, 2025 2:37:00 AM UTC (TECH: RG) 33251-3 Urobilinogen [Presence] in Urine 1.0 mg/dL 0.2 - 1.0 February 25, 2025 2:37:00 AM UTC (TECH: RG) 63064-7 Nitrite [Presence] in Urine N NEGATIVE NEGATIVE February 25, 2025 2:37:00 AM UTC (TECH: RG) 11353-7 Leukocyte esterase [Units/volume] in Urine N NEGATIVE NEGATIVE February 25, 2025 2:37:00 AM UTC (TECH: RG) 04817-4 Urinalysis microscopic panel - Urine sediment N PERFORMED February 25, 2025 2:37:00 AM UTC (TECH: RG) 32473-4 Leukocytes [#/volume] in Urine N NONE SEEN NONE SEEN February 25, 2025 2:37:00 AM UTC (TECH: RG) 59914-6 Urinalysis dipstick W Reflex Culture panel - Urine 0-3 /hpf NONE SEEN February 25, 2025 2:37:00 AM UTC (TECH: RG) 59844-8 Epithelial cells [#/volume] in Urine N RARE NONE SEEN February 25, 2025 2:37:00 AM UTC (TECH: RG) 59376-3 Bacteria identified in Specimen N NONE SEEN NONE SEEN February 25, 2025 2:37:00 AM UTC (TECH: RG) 22268-6 Collection method - N CCMS February 25, 2025 2:37:00 AM UTC (TECH: RG) 95287-4 Culture medium [Type] in Isolate N C&S NOT INDIC February 25, 2025 2:37:00 AM UTC (TECH: RG) ORDER 1000: TROPONIN I (LOIN C: 31284-5) ORDER DATE: February 24, 2025 11:46:00 PM UTC Specimen Source: PLASMA Specimen Type: Plasma specim en PERFORMING LAB: [address] [id number] Result Comment: Final Result Date: February 25, 2025 12:21:00 AM UTC (TECH: RG) LOINC TEST FLAG RESULT [place] [address]-2 Troponin I.cardiac [Mass/volume] in Serum or Plasma N 4 pg/ml February 25, 2025 12:21:00 AM UTC (TECH: RG) 39087-4 Time of initial encounter N YES YES/NO/UNK February 25, 2025 12:21:00 AM UTC (TECH: RG) ORDER 1100: CRP C REACTIVE P ROTEIN (LOINC: 1990-02) ORDER DATE: February 25, 2025 4:12:00 AM UTC Specimen Source: PLASMA Specimen Type: Plasma specim en PERFORMING LAB: [address] [id number] Result Comment: Final Result Date: February 25, 2025 4:29:00 AM UTC (TECH: RG) LOINC TEST FLAG RESULT REFERENCE RANGE UPDA BEATRIZ BY 1990-02 C reactive protein [Mass/volume] in Serum or Plasma H >25.0 mg/dl .05 mg/dl - .30 mg/dl February 25, 2025 4:29:00 AM UTC (TECH: RG) ORDER 1300: SEDIMENATION RAT E [facility] ESR (LOINC: 51931-5) ORDER DATE: February 25, 2025 4:16:00 AM UTC Specimen Source: WHOLE BLOOD Specimen Type: Whole blood s ample PERFORMING LAB: [address] [id number] Result Comment: Final Result Date: February 28, 2025 1:45:00 PM UTC (TECH: KCS) LOINC TEST FLAG RESULT [place] [address]-3 Erythrocyte sediment ation rate H 19 0 - 15 February 28, 2025 1:4 5:00 PM UTC (TECH: KCS) LABORATORY NARRATIVE RESULTS Information is not available RADIOLOGY RESULTS ORDER 900: CT CHEST WITH CON TRAST (LOINC: 03352-6) ORDER DATE: February 24, 2025 11:42:00 PM UTC PERFORMING LAB: [address] [id number] Final Result Date: February 25 2:21:[address] [address] Name: RAMIRO RAMIREZ Exam Date: 02/24/2025 : 1990 Age 34 years Gender: M Physician: ELPIDIO STEINER Facility: [facility] HSV: Outpatient Exam: CT CHEST WITH CONTRAST EXAM: CT THORAX WITH CONTRAST HISTORY: Chest pain 6 days, SOA, fever, without trauma/injury. COMPARISON: XR Chest 02/19/2025. TECHNIQUE: Intravenous low osmolar contrast. Coronal and sagittal reformations. Automated exposure control, adjustment of mA and/or kV according to patient size or iterative reconstruction dose optimization techniques were used. FINDINGS CARDIAC: Normal heart size. No pericardial effusion. AORTA/VASCULAR: No thoracic aortic aneurysm. LYMPH NODES/MEDIASTINUM: Prior median sternotomy. Inflammatory change and edema is noted within the superficial soft tissues overlying the sternum and manubrium and extending posteriorly to involve the anterior mediastinum. Rim-enhancing fluid collection anterior to the sternomanubrial junction measuring 2.4 x 2.1 x 2.6 cm, suspicious for a soft tissue abscess. CENTRAL AIRWAYS: Central airways are patent. LUNGS: Bibasilar subsegmental atelectasis. PLEURA: Normal. ESOPHAGUS: Unremarkable THYROID: Unremarkable CHEST WALL: Normal. UPPER ABDOMEN: Partially imaged cholelithiasis. THORACIC SKELETAL: No suspicious bone lesions. ADDITIONAL CHEST FINDINGS: None. IMPRESSION: Inflammatory change and edema is noted within the superficial soft tissues overlying the sternum and manubrium and extending posteriorly to involve the anterior mediastinum. Findings are suspicious for soft tissue infection involving the anterior chest wall and anterior mediastinum. Rim-enhancing fluid collection anterior to the sternomanubrial junction measuring 2.4 x 2.1 x 2.6 cm, suspicious for a soft tissue abscess. Electronically signed by: Justyna Day MD 02/24/2025 10:59 PM EDT Dictated By: JUSTYNA DAY Transcribed By: Transcribed On: 02/24/2025 10:21 PM Electronically signed by: JUSTYNA DAY 02/24/2025 Thank you for referring RAMRIO RAMIREZ to [facility]. Legally authenticated by CHALINO JANSEN 2025-02-24 22:21:54 PATHOLOGY NARRATIVE RESULTS Information is not available MICROBIOLOGY RESULTS No Micro Labs/Results Exist for Patient BLOOD ADMIN RESULTS Information is not available MEDICATIONS HOME MEDICATIONS Status RXNORM NDC Medication Dose Route Frequency Dates Comments Reported By Updated By Active FreeTex tMed Suboxone sublingual 0.0 Last Dose: [id number] on February 25, 2025 3:51:55 AM UT DISCHARGE MEDICATIONS Status RXNORM NDC Medication Dose Route Frequency Dates Comments Physician Updated By No Discharge Medication Info rmation Available INPATIENT MEDICATIONS Status RXNORM NDC Medication Dose Route Frequency Rat e Quantity Dates Comments Physician Updated By Bess inued [id number] 0166 5614 804 cefTRIAXone (ROCEPHIN) 1 GM SOLR 1.0 GM ONE TIME ONLY Start: February 24, 2025 11:48: 00 PM UTC End: February 24, 2025 11:48: 00 PM UTC GIVENS BECKY D INTERFAC ED on February 24, 2025 11:47:00 PM UTC Discont inued [id number] 2312 8055 318 sodium chloride 0.9% MINI-BAG 100 ML SOLN 100.0 ML INTRAV ENOUS ONE TIME ONLY Start: February 24, 2025 11:48: 00 PM UTC End: February 24, 2025 11:48: 00 PM UTC GIVENS BECKY D INTERFAC ED on February 24, 2025 11:47:00 PM UT Discont inued [id number] 7332 4791 461 ibuprofen (MOTRIN) 200 MG TABS 200.0 MG ORAL ONE TIME ONLY Start: February 25, 2025 2:36:0 0 AM UTC End: February 25, 2025 2:36:0 0 AM UTC GIVENS BECKY D INTERFAC ED on February 25, 2025 2:36:00 AM UT SOCIAL HISTORY SOCIAL HISTORY SNOMED-CT Social History Element Description Effective Dates Offered Cessation Comment UpdatedBy [id number] Current Tobacco smoking status Current Every Day Smoker [id number] on February 24, 2025 11:34:26 PM UT SOCIAL HISTORY - Gender Sex: Male SOCIAL HISTORY - Status : status i nformation is not available Intention in Next Year: intention information is not available SOCIAL HISTORY - Sexual Behavior Sexual Orientation Gender Identity SNOMED-CT Description SNO MED -CT Description Activity Level No of Partners Partner Type UpdatedBy Information is not available VITAL SIGNS PATIENT VITAL SIGNS This section displays the mo st recent value for each vital sign as of March 01, 2025 2:33:14 AM UT Loinc Code Vital Sign Activity Date Result Updated By 8302-2 Body height February 24, 2025 11:30:00 PM UTC 187.96 cm (74.0 in) [id number] on February 24, 2025 11:30:[place] [address]-8 Body mass index (BMI ) [Ratio] February 24, 2025 11:30:00 PM UTC 31.985 kg/m2 [id number] on February 24, 2025 11:30:00 PM UT 3140-1 Body Surface Area Derived From Formula February 24, 2025 11:30:00 PM UTC 2.3857 m2 [id number] on February 24, 2025 11:30:00 PM UT 8310-5 Body temperature February 25, 2025 4:12:00 AM UTC 99.3 [degF] [id number] on February 25, 2025 4:14:46 [place] [address]-9 Body weight Measured February 24 11:30:00 PM UTC 113.0 kg (249.0 lb) [id number] on February 24, 2025 11:30:00 PM UTC 8462-4 Diastolic blood pressure February 25, 2025 12:30:00 AM UTC 89.0 mm[Hg] [id number] on February 25, 2025 2:21:00 AM UTC 8867-4 Heart rate February 25, 2025 12:39:00 AM UTC 93 /min [id number] on February 25, 2025 2:21:01 [place] [address]-9 Oxygen saturation in Arterial blood by Pulse oximetry February 25, 2025 12:39:00 AM UTC 99.0 % [id number] on February 25, 2025 2:21:01 AM UTC 9279-1 Respiratory rate February 25, 2025 12:39:00 AM UTC 20 /min [id number] on February 25, 2025 2:21:01 AM UT 8480-6 Systolic blood pressure February 25, 2025 12:30:00 AM [facility] 144.0 mm[Hg] [id number] on February 25, 2025 2:21:00 AM [facility] PEDIATRIC GROWTH CHART - VITAL SIGNS This section displays Head C ircumference Percentile, Weight for Length Percentile and BMI Percentile Loinc Code Pediatric Measure Age (Months) Result Updat ed By No Pediatric Growth Chart Pe rcentile Information Available. HEALTH CONCERNS Problems Concern Status Health Concern problem infor mation not available. Smoking Status Status Years Used Consumed packs p er day Health Concern smoking histo ry information not available. Family History Concern Status Health Concern family histor y information not available. ENCOUNTERS ENCOUNTER INFORMATION Reason for Visit DRAINAGE Admission February 24, 2025 10:53:00 PM [place] [address] Discharge February 25, 2025 4:33:00 AM [facility]OT [facility] ENCOUNTER DIAGNOSES Notes information is not maricarmen ilable. Code System Diagnosis Onset Date Diagnosis information is not available. ABSTRACT DIAGNOSES Code System Diagnosis Updated By R07.2 ICD10 PRECORDIAL PAIN [id number] on 2024 6:21:19 AM [facility] R06.02 ICD10 SHORTNESS OF BREATH [id number] on February 27, 2025 6:21:19 AM [facility] M54.9 ICD10 DORSALGIA, UNSPECIFIED BYE36 30 on February 27, 2025 6:21:19 AM [facility] L02.213 ICD10 CUTANEOUS ABSCESS OF CHEST W ALL [id number] on February 27, 2025 6:21:19 AM [facility] F17.210 ICD10 NICOTINE DEPENDE NCE, CIGARETTES, UNCOMPLICATED [id number] on February 27, 2025 6:21:19 AM [facility] CARE TEAM Care Grounds Maintenance Supervisor Role BECKY VICTORIA Admitting ELPIDIO STEINER Referring NONE Primary Care BECKY VICTORIA Primary Attending CARE TEAM CARE casting machine operator Role on Team Status Start Date End Date Update d By DR ADRIANNE TEAGUE PCP normal February 24, 2025 11:48:50 PM [facility] February 25, 2025 4:33:00 AM [facility] [id number] on February 24, 2025 11:48:50 PM [facility] JATIN Velásquez KISS M[employer]ER Referring normal February 24, 2025 11:48:50 PM [facility] February 25, 2025 4:33:00 AM [facility] [id number] on February 24, 2025 11:48:50 PM UTC GIVENS BECKY TOMAS Attending normal February 24 11:48:50 PM UTC February 25, 2025 4:33:00 AM UT [id number] on February 24, 2025 11:48:50 PM UTC GIVENS BECKY TOMAS Admitting normal February 24 11:48:50 PM UTC February 25, 2025 4:33:00 AM UT [id number] on February 24, 2025 11:48:50 PM UTC
--- OUTSIDE RECORDS SUMMARY | 2025-03-08 14:00 | XMS_ITS | Encounter Summary ---
Author Organization Healthcare Address [address] [place] [address] Care Team Providers Care Pantry Cook Name Role Phone Pcp, No Primary Care Provider Unavailvidal e Francisco Javier Eller MD Unavailable [phone] Encounter Details Date Type Department Care Team (Late st Contact Info) Description 03/08/2025 2:00 PM EDT Office Visit [place] [facility] [address], [address] [place] [address] Keny Tristan MD [address] [facility] [address] [place] [address] Sternal wound dehiscence, initial encounter [...] in the past 12 m [facility], were you homeless or living in a chcf (including now)? No 02/27/2025 Utilities Answer Date Recorded In the past 12 months has th e [employer], gas, oil, or water company threatened to [...] 2:00 PM EDT Wound Vac Chnage (CPT 89933) Performed by: AGNIESZKA Resendiz Consent: Consent obtained: [...] Description 03/26/2025 11:40 AM EDT Office Visit [facility] Cardiothoracic [address], [address] [place] [address] Sherlyn Cisse MD [address] [place] [address] 03/27/2025 9:00 AM EDT Office Visit [address] [address] Keny Chin MD [address] [place] [address] 04/10/2025 9:00 AM EDT Office Visit [address] [address] Leela Chin MD [address] [place] [phone] documented as of this encounter Visit Diagnoses Diagnosis Sternal wound dehiscence, initial encounter- Primary documented in this encounter Additional Health Concerns Assessment Noted Time A Body Mass Index follow-up plan has been documented for the patient 03/08/2025 1:43 PM EDT documented as of this encounter Care Teams Pantry Cook Relationship Specialty Start Date End Date Pcp, [place] [address] PCP - General Family Medicine 02/25/25 Francisco J[facility] [address] [facility] [place] [address] Wagon Driver 03/02/25 documented as of this encounter
--- OUTSIDE RECORDS SUMMARY | 2025-03-12 09:40 | XMS_ITS | Encounter Summary ---
Author Organization Healthcare Address [address] [place] [address] Care Team Providers Care Wool Puller Name Role Phone Pcp, No Primary Care Provider Unavailvidal e Francisco Javier Eller MD Unavailable [phone] Encounter Details Date Type Department Care Team (Late st Contact Info) Description 03/12/2025 9:40 AM EDT Office Visit [facility] [address] [place] [address] Sherlyn Cisse MD [address] [place] [address] Sternal wound dehiscence, initial encounter [...] any time in the past 12 m [facility], were you homeless or living [...] VAC change again on WednesdayMarch 14 in [facility]. Hisnext appointment to see us in the clinic is on March 26. I have asked he bring a wound VAC sponge and dressing kit with him at the time of that appointment so that we can take it down look at the progress of wound healing and reapply. 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 documented in this encounter Plan of Treatment Upcoming Encounters Date Type Department Care Team (Late st Contact Info) Description 03/26/2025 11:40 AM EDT Office Visit [facility] Cardiothoracic [address] [place] [address] Sherlyn Cisse MD [address] [facility] [address] [place] [address] 03/27/2025 9:00 AM EDT Office Visit [address] [place] [address] Keny Chin MD [address] [facility] [address] [place] [address] 04/10/2025 9:00 AM EDT Office Visit [facility] [address] [place] [address] Leela Chin MD [address] [facility] [address] [place] [address] documented as of this encounter Visit Diagnoses Diagnosis Sternal wound dehiscence, initial encounter- Primary documented in this encounter Additional Health Concerns Assessment Noted Time A fall risk assessment has been complete d for the patient 03/12/2025 10:07 AM EDT A Body Mass Index follow-up plan has been documented for the patient 03/12/2025 10:37 AM EDT documented as of this encounter Care Teams Wool Puller Relationship Specialty Start Date End Date Pcp, [place] [address] PCP - General Family Medicine 02/25/25 Francisco Javier Eller MD [facility] [place] [address] Bottom Hoop Driver 03/02/25 documented as of this encounter
--- OUTSIDE RECORDS SUMMARY | 2025-03-12 11:48 | XMS_ITS | Encounter Summary ---
Author Organization Healthcare Address [address] [place] [address] Care Team Providers Care Set Up Worker Name Role Phone Pcp, No Primary Care Provider Unavailabl e Encounter Details Date Type Department Care Team (Latest Contact Info) Description 02/26/2025 Travel Social History Tobacco Use Types Packs/Day Years [...] any time in the past 12 m [facility], were you homeless or living in a correction (including now)? No 02/27/2025 Utilities Answer Date Recorded In the past 12 months has [employer], gas, oil, or water company threatened [...] Month) No 02/26/2025 8:00 PM EDT Virginia Claros, RN 2. Non-Specific Active Suici mony Thoughts (Past 1 Month) No 02/26/2025 8:00 PM EDT Monica Claros RN 6. Suicidal Behavior (Lifetime) No 8:00 PM EDT Virginia Claros, RN documented as of this encounter Plan of Treatment Upcoming Encounters Date Type Department Care Team (Late st Contact Info) Description 03/26/2025 11:40 AM EDT Office Visit [facility] [address] [place] [address] Sherlyn Cisse MD [address] [place] [address] 03/27/2025 9:00 AM EDT Office Visit [facility] [address] [place] [address] Keny Chin MD [address] [facility] [address] [place] [address] 04/10/2025 9:00 AM EDT Office Visit [facility] [address] [place] [address] Leela Chin MD [address] [facility] [address] [place] [address] documented as of this encounter Visit Diagnoses Not on filedocumented in this encounter Additional Health Concerns Assessment Noted Time A Body Mass Index follow-up plan has been documented for the patient 03/06/2025 9:43 AM EDT documented as of this encounter Care Teams Set Up Worker Relationship Specialty Start [place] [address] PCP - General Family Medicine 02/25/25 documented as of this encounter
--- OUTSIDE RECORDS SUMMARY | 2025-03-12 11:49 | XMS_ITS | Encounter Summary ---
Author Organization Healthcare Address [address] [place] [address] Care Team Providers Care Retread Mold Operator Name Role Phone Pcp, No Primary Care Provider Unavailabl e Encounter Details Date Type Department Care Team (Latest Contact Info) Description 02/25/2025 Travel Social History Tobacco Use Types Packs/Day Years Used Date Smoking Tobacco: Never Assessed Sex and Gender Information Value Date Recorded Sex Assigned at Not on file Legal Sex Male 12:02 AM EDT Gender Identity Not on file Sexual Orientation Not on file documented as of this encounter Functional Status * Calculated C-SSRS Risk Score (Lifetime/Recent) Answer Date of Assessment Author No Risk Indicated 02/25/2025 8:00 AM EDT Ginette Oseguera RN * Question Answer Date of Assessment Author 1. Wish to be (Past 1 Month) No 025 8:00 AM EDT Ginette Oseguera, SEBASTIAN 2. Non-Specific Active Suici mony Thoughts (Past 1 Month) No 02/25/2025 8:00 AM EDT Ginette Oseguera, RN 6. Suicidal Behavior (Lifetime) No 8:00 AM EDT Ginette Oseguera RN documented as of this encounter Plan of Treatment Upcoming Encounters Date Type Department Care Team (Late st Contact Info) Description 03/26/2025 11:40 AM EDT Office Visit [facility] [address], [address] [place] [address] Sherlyn Cisse MD [address] [place] [address] 03/27/2025 9:00 AM EDT Office Visit [facility] [address] [place] [address] [place] [address] [place] [address] [address] [place] [address] 04/10/2025 9:00 AM EDT Office Visit [address] [address] Leela Chin MD [address] [place] [address] documented as of this encounter Visit Diagnoses Not on filedocumented in this encounter Additional Health Concerns Assessment Noted Time A Body Mass Index follow-up plan has been documented for the patient 03/06/2025 9:43 AM EDT documented as of this encounter Care Teams Retread Mold Operator Relationship Specialty Start Date End Date P[place], [place] [address] PCP - General Family Medicine 02/25/25 documented as of this encounter
--- OUTSIDE RECORDS SUMMARY | 2025-03-12 11:49 | XMS_ITS | Encounter Summary ---
Author Organization Healthcare Address [address] [place] [address] Care Team Providers Care Yarrow Gatherer Name Role Phone Pcp, No Primary Care Provider Unavailvidal e Francisco Javier Eller MD Unavailable [phone] Encounter Details Date Type Department Care Team (Late st Contact Info) Description 03/07/2025 Telephone [facility] Inpatient [address] [place] [address] Barbara Martins CV TELE-PROGRESSIVE Social History Tobacco Use Types Packs/Day Years [...] any time in the past 12 m [facility], were you homeless or living in [...] on file documented as of this encounter Plan of Treatment Upcoming Encounters Date Type Department Care Team (Late st Contact Info) Description 03/26/2025 11:40 AM EDT [facility] [address], [address] [place] [address] Sherlyn Cisse MD [address] [facility] [address] [place] [address] 03/27/2025 9:00 AM EDT Office Visit [address] [address] Keny Chin MD [address] [place] [address] [address] [place] [address] 04/10/2025 9:00 AM EDT Office Visit [address] [address] Leela Chin MD [address] [place] [address] [address] [place] [address] documented as of this encounter Visit Diagnoses Not on filedocumented in this encounter Additional Health Concerns Assessment Noted Time A Body Mass Index follow-up plan has been documented for the patient 03/07/2025 8:32 AM EDT documented as of this encounter Care Teams Yarrow Gatherer Relationship Specialty Start Date End Date Pcp, [place] [address] PCP - General Family Medicine 02/25/25 Francisco Javier Eller MD [facility] [place] [address] Quality Control Associate 03/02/25 documented as of this encounter
--- OUTSIDE RECORDS SUMMARY | 2025-03-12 11:49 | XMS_ITS | Encounter Summary ---
Author Organization Healthcare Address [address] [place] [address] Care Team Providers Care Meal Grinder Tender Name Role Phone Pcp, No Primary Care Provider Unavailabl e Encounter Details Date Type Department Care Team (Late st Contact Info) Description 02/24/2025 Orders Only External Location [address] [place] [address] Provider, External Social History Tobacco Use Types Packs/Day Years [...] the past 12 months has th e [employer], gas, oil, or water company threatened to [...] Date of Assessment Author No Risk Indicated 02/27/2025 8:00 PM EDT Virginia Iraheta RN * Question Answer Date of Assessment Author 1. Wish to be (Past 1 Month) No 02/27/2025 8:00 PM EDT Virginia Claros, RN 2. Non-Specific Active Suici mony Thoughts (Past 1 Month) No 02/27/2025 8:00 PM EDT Monica Claros RN 6. Suicidal Behavior (Lifetime) No 8:00 PM EDT Virginia Claros, RN documented as of this encounter Plan of Treatment Upcoming Encounters Date Type Department Care Team (Late st Contact Info) Description 03/26/2025 11:40 AM EDT Office Visit [facility] [address], [address] [place] [address] Sherlyn Cisse MD [address] [place] [address] 03/27/2025 9:00 AM EDT Office Visit [address] [phone] Keny Chin MD [address] [facility] [address] [place] [address] 04/10/2025 9:00 AM EDT Office Visit [facility] [address] [place] [address] Leela Chin MD [address] [facility] [address] [place] [address] documented as of this encounter Procedures Procedure Name Priority Date/Time Associated Diagnosis Comments CT THORACIC OUTSIDE IMAGES 02/24/2025 8:44 PM EDT documented in this encounter Results * CT THORACIC OUTSIDE IMAGES (02/24/2025 8:44 PM EDT) Anatomical Region Laterality Modality Computed Tomogra phy 02/24/2025 8:44 PM EDT us External Provider IMG CT PROCEDURES Final Result documented in this encounter Visit Diagnoses Not on filedocumented in this encounter Care Teams Meal Grinder Tender Relationship Specialty Start Date End Date Pcp, [place] [address] PCP - General Family Medicine 02/25/25 documented as of this encounter
--- OUTSIDE RECORDS SUMMARY | 2025-03-12 11:49 | XMS_ITS | Encounter Summary ---
Author Organization Healthcare Address [address] [place] [address] Care Team Providers Care Pick And Shovel Man Name Role Phone Pcp, No Primary Care Provider Francisco Javier Mendez MD Unavailable [phone] Encounter Details Date Type Department Care Team (Late st Contact Info) Description 02/25/2025 Patient Outreach [facility] [address] [place] [address] Gavin Vargas Social History Tobacco Use Types Packs/Day Years [...] any time in the past 12 m [facility], were you homeless or living in a retirement (including now)? No 02/27/2025 Utilities Answer Date [...] Date of Assessment Author No Risk Indicated 03/05/2025 8:00 AM EDT Rhona Bhatt RN * Question Answer Date of Assessment Author 1. Wish to be (Past 1 Month) No 025 8:00 AM EDT Gallo Bhatt, SEBASTIAN 2. Non-Specific Active Suici mony Thoughts (Past 1 Month) No 03/05/2025 8:00 AM EDT Gallo Bhatt RN 6. Suicidal Behavior (Lifetime) No 8:00 AM EDT Gallo Bhatt, RN documented as of this encounter Plan of Treatment Upcoming Encounters Date Type Department Care Team (Late st Contact Info) Description 03/26/2025 11:40 AM EDT Office Visit [facility] [address], [address] [place] [address] Sherlyn Cisse MD [address] [place] [address] 03/27/2025 9:00 AM EDT Office Visit [facility] [address] [place] [address] Keny Chin MD [address] [facility] [address] [place] [address] 04/10/2025 9:00 AM EDT Office Visit [facility] [address] [place] [address] Leela Chin MD [address] [facility] [address] [place] [address] documented as of this encounter Visit Diagnoses Not on filedocumented in this encounter Additional Health Concerns Assessment Noted Time A Body Mass Index follow-up plan has been documented for the patient 03/06/2025 9:43 AM EDT documented as of this encounter Care Teams Pick And Shovel Man Relationship Specialty Start Date End Date Pcp, [place] [address] PCP - General Family Medicine 02/25/25 Francisco Javier Eller MD [facility] [place] [address] Rural Mail Contractor 03/02/25 documented as of this encounter
--- OUTSIDE RECORDS SUMMARY | 2025-03-12 11:49 | XMS_ITS | Encounter Summary ---
Author Organization Healthcare Address [address] [place] [address] Care Team Providers Care Biological Plant Operator Name Role Phone Pcp, No Primary Care Provider Unavailvidal e Francisco Javier Eller MD Unavailable [phone] Encounter Details Date Type Department Care Team (Late st Contact Info) Description 03/07/2025 Clinical Support [facility] [address] [place] [address] Saul Bey, PharmD [address] [id number] Social History Tobacco Use Types Packs/Day Years [...] any time in the past 12 m [facility], were you homeless or living in a [...] Description 03/26/2025 11:40 AM EDT Office Visit [facility] [address], [address] [place] [address] Sherlyn Cisse MD [address] [facility] [address] [place] [address] 03/27/2025 9:00 AM EDT Office Visit [facility] [address] [place] [address] Keny Chin MD [address] [facility] [address] [place] [address] 04/10/2025 9:00 AM EDT Office Visit [facility] [address] [place] [address] Leela Chin MD [address] [facility] [address] [place] [address] documented as of this encounter Visit Diagnoses Not on filedocumented in this encounter Additional Health Concerns Assessment Noted Time A Body Mass Index follow-up plan has been documented for the patient 03/07/2025 8:32 AM EDT documented as of this encounter Care Teams Biological Plant Operator Relationship Specialty Start Date End Date Pcp, [place] [address] PCP - General Family Medicine 02/25/25 Francisco Javier Eller MD [address] [place] [address] Infant Babysitter 03/02/25 documented as of this encounter
--- OUTSIDE RECORDS SUMMARY | 2025-03-12 11:50 | XMS_ITS ---
Author Organization [facility] Address [address] [place] [address] Care Team Providers Care Spinning Mule Tender Name Role Phone Pcp, No Primary Care Provider UnavailFrancisco Javier Perez MD Unavailable [phone] Hepatitis C Program Status:Closed (Closed) Start date:02/25/2025 Enrollment reason:HCV End date:02/25/2025 Close reason:HCV RNA Negative Continued Care and Services Coordination
--- OUTSIDE RECORDS SUMMARY | 2025-03-12 11:50 | XMS_ITS | Encounter Summary ---
Author Organization Healthcare Address [address] [place] [address] Care Team Providers Care Processing Inspector Name Role Phone Pcp, No Primary Care Provider Unavailabl e Encounter Details Date Type Department Care Team (Latest Contact Info) Description 02/27/2025 Travel Social History Tobacco Use Types Packs/Day [...] the past 12 months has th e [employer], gas, oil, or water [employer] threatened to shut off services in your [...] Description 03/26/2025 11:40 AM EDT Office Visit [facility] [address], [address] [place] [address] Sherlyn Cisse MD [address] [place] [address] 03/27/2025 9:00 AM EDT Office Visit [facility] [address] [place] [address] Keny Chin MD [address] [facility][1] [address] [place] [address] 04/10/2025 9:00 AM EDT Office Visit [facility] [address] [place] [address] Leela Chin MD [address] [address] documented as of this encounter Visit Diagnoses Not on filedocumented in this encounter Additional Health Concerns Assessment Noted Time A Body Mass Index follow-up plan has been documented for the patient 03/06/2025 9:43 AM EDT documented as of this encounter Care Teams Processing Inspector Relationship Specialty Start Date End Date Pcp, Heaven [address] [place] [address] PCP - General Family Medicine 02/25/25 documented as of this encounter
--- OUTSIDE RECORDS SUMMARY | 2025-03-12 11:50 | XMS_ITS | Clinical Summary ---
Author Organization [employer] Address [address] [place] [address] Care Team Providers Care Fur Coat Sewer Name Role Phone Subha Cates MD Primary Care Provider Francisco Javier Eller MD Unavailable [phone] Khalida Gustafson MD Unavailable Allergies No known active allergies Medications buprenorphine-na loxone (SUBOXONE) 8-[address] 2 films under the tongue daily. 11/14/2024 Active Active Problems Problem Noted Date Diagnosed Date Drainage from wound 12/29/2024 Hepatitis C Chest pain Presence of prosthetic heart valve Encounters Date Type Department Care Team Description 01/23/2025 Telephone [facility] Cardiothoracic Surgery [address] [address] Mita Myles CMA Follow up appt (Needs CT Chest and Follow up appt.) 01/09/2025 9:30 AM EDT Office Visit [facility] Cardiothoracic Surgery [address] [address] Khalida Gustafson MD Drainage from wound (Primary Dx) 01/04/2025 Orders Only [facility] Cardiothoracic Surgery [address] [address] Provider, MD Dom from Last 3 Months Family History Medical History Relation Name Comments No Known Problem Father No Known Problem Mother Relation Name Status Comments Father Mother Alive Social History Tobacco Use Types Packs/Day Years Used Date Smoking Tobacco: Former Cigarettes Smokeless Tobacco: Never Tobacco Cessation:Counseling Given: Not Answered Alcohol Use Standard Drinks/Week Comments Never 0 (1 standard drink = 0.6 oz pur e alcohol) Sex and Gender Information Value Date Recorded Sex Assigned at Not on file Legal Sex Male 12:29 PM CHIEF TALENT OFFICER Gender Identity Not on file Sexual Orientation Not on file Last Filed Vital Signs Vital Sign Reading Time Taken Comments Blood Pressure 130/82 01/09/2025 10:04 AM EDT Pulse 78 01/09/2025 10:04 AM EDT Temperature 36.8 C (98.2 F) 01/09/2025 10:04 AM EDT Respiratory Rate - - Oxygen Saturation 97% 01/09/2025 10: 04 AM EDT Inhaled Oxygen Concentration - - Weight 119.4 kg (263 lb 3.2 oz) 025 10:04 AM EDT Height 185.4 cm (6' 1 ) 01/09/2025 10:0 4 AM EDT Body Mass Index 34.73 01/09/2025 10:04 AM EDT Plan of Treatment Health Maintenance Due Date Last Done Comments Depression Screening (12+) 2000 HIV Screening 2003 Lipid Panel 2023 DTAP/TDAP/TD VACCINES (4 - T d or Tdap) 04/16/2024 04/16/2014, 02/03/2013, 10/29/2011 COVID-19 VACCINE (2 - 2023-2 5 season) 2024 01/07/2021 Influenza Vaccine (Season Ended) 2025 Tobacco Cessation Counseling and Screening (12+) 01/09/2026 01/09/2025 Pneumococcal Vaccine: 0-49 Years Aged Out No longer eligible b ased on patient's age to complete this topic Procedures Procedure Name Priority Date/Time Associated Diagnosis Comments EXTERNAL CARDIOLOGY - MISC Routine 12/25/2024 1:22 PM EDT EXTERNAL CARDIOLOGY - ECHOCARDIOGRAM Routine 12/19/2024 1:21 PM EDT from Last 3 Months Results * EXTERNAL CARDIOLOGY - MISC (12/25/2024 1:22 PM EDT) Anatomical Region Laterality Modality Other Historical Provider MD [facility] ORDER DEUCE Final Result * EXTERNAL CARDIOLOGY - ECHOCARDIOGRAM (12/19/2024 1:21 PM EDT) Anatomical Region Laterality Modality Other Historical Provider MD [facility] ECHO ORDERABLES Final Result from Last [address] [place] [place] [address] [employer] Care Teams Fur Coat Sewer Relationship Specialty [place] [address] [place] [address] PCP - General Family Medicine 11/21/24 Francisco Javier Eller MD [address] [place] [address] Tennis Centre Manager Cardiology 11/21/24 Khalida Gustafson MD [address] [place] [address] Surgeon Cardiothoracic Surgery 01/09/25
--- OUTSIDE RECORDS SUMMARY | 2025-03-12 11:50 | XMS_ITS | Encounter Summary ---
Author Organization [employer] Address [address] [place] [address] Care Team Providers Care Hot Tamale Worker Name Role Phone Subha Cates MD Primary Care Provider Francisco Javier Eller MD Unavailable [phone] Khalida Gustafson MD Unavailable [phone] Reason for Visit * Reason Onset Date Comments Follow up appt 01/23/[address] Chest a nd Follow up appt. Encounter Details Date Type Department Care Team (Late st Contact Info) Description 01/23/2025 Telephone [facility] Cardiothoracic Surgery - [address] [address] Mita Myles CMA Follow up appt (Needs CT Chest and Follow up appt.) Social History Tobacco Use Types Packs/Day Years Used Date Smoking Tobacco: Former Cigarettes Smokeless Tobacco: Never Alcohol Use Standard Drinks/Week Comments Never 0 (1 standard drink = 0.6 oz pur e alcohol) Sex and Gender Information Value Date Recorded Sex Assigned at Not on file Legal Sex Male 12:29 PM PCI SECURITY CONSULTANT Gender Identity Not on file Sexual Orientation Not on file documented as of this encounter Miscellaneous Notes * Telephone Encounter - Mita Myles CMA - 01/23/2025 1:44 PM EDT Spoke with Afua Amaya, yesterday and today regarding patient Follow up with Dr Meek CT Chest @ [facility]. She stated patient has been working out of town and hasn't got the CT Chest done yet. Informed her that we would cancel appt for now with Dr Gustafson and that they would need to call the office to reschedule after getting CT done. She voiced understanding to the plan. Mita Myles CMA documented in this encounter Plan of Treatment Not on file documented as of this encounter Visit Diagnoses Not on filedocumented in this encounter Care Teams Hot Tamale Worker Relationship Specialty [place] [address] [place] [address] PCP - General Family Medicine 11/21/24 Francisco Javier Eller MD [address] [place] [address] [place] [address] Tanyard Worker Cardiology 11/21/24 Khalida Gustafson MD [address] [facility] [address] [place] [address] Surgeon Cardiothoracic Surgery 01/09/25 documented as of this encounter
--- OUTSIDE RECORDS SUMMARY | 2025-03-12 11:50 | XMS_ITS | Referral Summary ---
Author Organization [employer] Address [address] [place] [address] Care Team Providers Care Stores Laborer Name Role Phone Subha Cates MD Primary Care Provider Francisco Javier Eller MD Unavailable Khalida Gustafson MD Unavailable [phone] Encounters Date Type Department Care Team Description 01/23/2025 Telephone [facility] Cardiothoracic Surgery [address] [address] Mita Myles CMA Follow up appt (Needs CT Chest and Follow up appt.) 01/09/2025 9:30 AM EDT Office Visit [facility] Cardiothoracic Surgery [address] [address] Khalida Gustafson MD Drainage from wound (Primary Dx) 01/04/2025 Orders Only [facility] Cardiothoracic Surgery [address] [address] ProviderDom MD from Last 3 Months Allergies No known active allergies Medications buprenorphine-na loxone (SUBOXONE) 8-[address] 2 films under the tongue daily. 11/14/2024 Active Active Problems Problem Noted Date Diagnosed Date Drainage from wound 12/29/2024 Hepatitis C Chest pain Presence of prosthetic heart valve Social History Tobacco Use Types Packs/Day Years Used Date Smoking Tobacco: Former Cigarettes Smokeless Tobacco: Never Tobacco Cessation:Counseling Given: Not Answered Alcohol Use Standard Drinks/Week Comments Never 0 (1 standard drink = 0.6 oz pur e alcohol) Sex and Gender Information Value Date Recorded Sex Assigned at Not on file Legal Sex Male 12:29 PM MANAGER FURNITURE Gender Identity Not on file Sexual Orientation [...] 01/09/2025 10:04 AM EDT Plan of Treatment Not on file Procedures Procedure Name Priority Date/Time Associated Diagnosis Comments EXTERNAL CARDIOLOGY - MISC Routine 12/25/2024 1:22 PM EDT EXTERNAL CARDIOLOGY - ECHOCARDIOGRAM Routine 12/19/2024 1:21 PM EDT from Last 3 Months Results * EXTERNAL CARDIOLOGY - MISC (12/25/2024 1:22 PM EDT) Anatomical Region Laterality Modality Other Historical Provider [facility] ORDER DEUCE Final Result * EXTERNAL CARDIOLOGY - ECHOCARDIOGRAM (12/19/2024 1:21 PM EDT) Anatomical Region Laterality Modality Other Historical Provider [facility] ECHO ORDERABLES Final Result from Last 3 Months Insurance [employer] Care Teams Stores Laborer Relationship Specialty [place] [address] [place] [address] PCP - General Family Medicine 11/21/24 Francisco Javier Eller MD [address] [place] [address] [place] [address] Automatic Grinder Operator Cardiology 11/21/24 Khalida Gustafson MD [address] [place] [address] Surgeon Cardiothoracic Surgery 01/09/25
--- OUTSIDE RECORDS SUMMARY | 2025-03-12 11:51 | XMS_ITS | Clinical Summary ---
Author Organization [facility] Address [address] 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 Active acetaminophen (Tylenol) 500 MG tablet Take 2 tablets by mouth every 6 hours as needed for pain. Active ibuprofen 200 MG tablet Take 2 tablets by mouth every 6 hours as needed for mild pain. Active ceFAZolin (Ancef) injectionIndicati ons:Bacteremia due to Staphylococcus aureus Infuse 6 gm continuously every 24 hours. Mix per institutional policy. 1 each 025 2024 Active oxyCODONE (Roxicodone) 5 MG immediate release tablet Take 2 tablets by mouth every 4 hours as needed for severe pain (For pain unrelieved by other interventions) for up to 3 days. 24 tablet 025 2024 Active Additional Information Patient not taking.Reported on 03/12/2025 lidocaine (Lidoderm) 5 % patch Apply 1 patch topically 1 (one) time each day at the same time over 12 hours. Remove & discard patch within 12 hours or as directed by MD. 20 patch 025 Active methocarbamol (Robaxin) 750 MG tablet Take 1 tablet by mouth 4 times a day. 30 tablet 025 Active naloxone (Narcan) 4 mg/0.1 mL nasal spray 1. Give 1 spray in nostril for no/slow breathing or cannot wake after opioid use 2. Call 911 3. Repeat in other nostril if symptoms continue 1 each 025 Active oxyCODONE (Roxicodone) 5 MG immediate release tablet Take 1 tablet by mouth every 8 hours as needed for severe pain (To be taken for wound vac changes.) for up to 3 days. 10 tablet 025 2024 Active HYDROcodone-aceta minophen (Watson) 5-325 MG tablet Take 1 tablet by mouth every 6 hours as needed for moderate pain or severe pain. 80 tablet 025 2024 Active lidocaine (Lidoderm) 5 % patch Apply 1 patch topically 1 (one) time each day at the same time over 12 hours. Remove & discard patch within 12 hours or as directed by MD. 20 patch 025 2024 Discontinued methocarbamol (Robaxin) 750 MG tablet Take 1 tablet by mouth 4 times a day. 30 tablet 025 2024 Discontinued naloxone (Narcan) 4 mg/0.1 mL nasal spray 1. Give 1 spray in nostril for no/slow breathing or cannot wake after opioid use 2. Call 911 3. Repeat in other nostril if symptoms continue 1 each 025 2024 Discontinued Active Problems Problem Noted Date Diagnosed Date BMI 33.0-33.9,adult 03/12/2025 Chest pain 03/08/2025 Presence of prosthetic heart valve 03/08/2025 Hepatitis C 03/08/2025 Bacteremia due to Staphylococcus aureus 02/28/20 25 H/O tricuspid valve repair 02/27/2025 Opioid use disorder, severe, on maintenance ther apy 02/27/2025 Obesity due to excess calories without serious c omorbidity 02/27/2025 Sternal wound dehiscence, initial encounter 02/02 Chest wall abscess 02/25/2025 Drainage from wound 12/29/2024 Encounters Date Type Department Care Team Description 03/12/2025 9:40 AM EDT Office Visit [facility] Cardiothoracic [address], [address] [place] [phone] Sherlyn Cisse MD Sternal wound dehiscence, initial encounter (Primary Dx) 03/12/2025 Travel 03/08/2025 2:00 PM EDT Office Visit [facility] Cardiothoracic [address], [address] [place] [address] Keny Tristan MD Sternal wound dehiscence, initial encounter (Primary Dx) 03/08/2025 Travel 03/07/2025 Telephone [facility] [address] [place] [address] Barbara Martins 03/07/2025 Clinical Support [facility] [address] [place] [address] Saul Bey, PharmD 02/27/2025 Travel 02/26/2025 9:00 AM EDT - 02/26/2025 11:30 AM EDT Surgery [facility] [address] [place] [phone] Sherlyn Cisse MD CHEST WASHOUT, REMOVAL OF STERNAL PLATES 02/26/2025 8:43 AM EDT Anesthesia Event [facility] [address] [place] [address] Praneeth Jasmine MD Ram, Harish, MD 02/26/2025 Travel 02/25/2025 2:42 AM EDT - 03/06/2025 1:35 PM EDT Hospital Encounter [facility] [address] [place] [address] Franco Guillory MD Ogburn, Erinn A, MD Chest wall abscess (Primary Dx); Bacteremia due to Staphylococcus aureus Discharge Disposition: Home or Self Care 02/25/2025 Patient Outreach [facility] Medicine Specialties [address] [place] [address] Gavin Vargas 02/25/2025 Travel 02/24/2025 Orders Only External Location [address] [place] [phone] Provider, External from Last 3 Months Immunizations Immunization Administration Dates Next Due Arnold COVID-19 Vaccine (Blue Cap) 18+ 01/08/20 21 TD (adult), 2 Lf tetanus tox oid, preservative free, adsorbed 10/29/2011 Tdap 04/16/2014,02/03/2013 Social History Tobacco Use Types Packs/Day Years [...] any time in the past 12 m [facility], were you homeless or living in a half-way (including now)? No 02/27/2025 Utilities Answer Date Recorded In the past 12 months has th e [employer], gas, oil, or water [employer] threatened to shut off services in your [...] Pulse 71 03/12/2025 10:01 AM EDT Temperature 36.6 C (97.8 F) 03/06/2025 7:30 AM EDT Respiratory Rate 18 03/06/2025 7:30 AM EDT Oxygen Saturation 98% 03/12/2025 10:01 AM EDT Inhaled Oxygen Concentration - - Weight 119 kg (261 lb 5.7 oz) 03/12/2025 10:01 A M EDT Height 188 cm (6' 2 ) 03/12/2025 10:01 AM EDT Body Mass Index 33.56 03/12/2025 10:01 AM EDT Plan of Treatment Upcoming Encounters Date Type Department Care Team (Late st Contact Info) Description 03/26/2025 11:40 AM EDT Office Visit [facility] Cardiothoracic [address], [address] [place] [address] Sherlyn Cisse MD [address] [facility] [address] [place] [address] 03/27/2025 9:00 AM EDT Office Visit [place] [phone] Keny Chin MD [address] [place] [address] [address] [place] [address] 04/10/2025 9:00 AM EDT Office Visit [address] [address] Leela Chin MD [address] [place] [address] [address] [place] [phone] Health Maintenance Due Date Last Done Comments [facility]-Infant/Child/Adol SDOH Screenings 1988 [facility]-Varicella Vaccines (1 of 2 - 13+ 2-dose series) 2001 HPV Vaccines (1 - Male 3-dose series) 2003 [facility]-Hepatitis A Vaccines (1 of 2 - Risk 2-dose series) 2007 [facility]-Hepatitis B Vaccines (1 of 3 - 19+ 3-dose series) 2007 [facility]-Pneumococcal Vaccine: Pediatrics (0 to 5 Years) and At-Risk Patients (6 to 49 Years) (1 of 2 - PCV) 2007 [facility]-DTaP,Tdap,and Td Vaccines (3 - Td or Tdap) 04/16/2024 04/16/2014, 02/03/2013, 10/29/2011 [id number] Vaccine (2 - season) 2024 01/07/2021 [facility]-Influenza Vaccine (Season Ended) 2025 [facility]- SDOH Screenings 08/30/2025 [facility]-Adult SDOH Screenings 08/30/2025 02/27/2025 [facility]-Depression Screening 03/12/2026 03/12/2025 [facility]-Zoster Vaccines (1 of 2) 2038 [facility]-HIV Screening Completed 02/25/2025 [facility]-Obesity Intervention Completed 025, 03/08/2025, 03/07/2025, Additional history exists [facility]-HIB Vaccines Aged Out No longer e ligible based on patient's age to complete this topic [facility]-IPV Vaccines Aged Out No longer e ligible based on patient's age to complete this topic [facility]-Rotavirus Vaccines Aged Out No lo nger eligible based on patient's age to complete this topic Procedures Procedure Name Priority Date/Time Associated Diagnosis Comments INSERT PICC LINE Routine 03/04/2025 4:49 PM EDT MORPHOLOGY Routine 03/03/2025 2:11 AM EDT MANUAL DIFFERENTIAL Routine 03/03/2025 2 :11 AM EDT HEPATIC FUNCTION PANEL Routine 2:11 AM EDT MAGNESIUM, PLASMA Routine 03/03/2025 2:1 1 AM EDT CBC WITH AUTO DIFFERENTIAL Routine 03/03/2025 2:11 AM EDT BLOOD CULTURE (AEROBIC/ANAEROBIC SET) Routine 03/03/2025 2:11 AM EDT BLOOD CULTURE (AEROBIC/ANAEROBIC SET) Routine 03/03/2025 2:11 AM EDT CBC W/O DIFFERENTIAL Routine 03/01/2025 3:55 AM EDT BASIC METABOLIC PANEL, PLASMA Routine 03/01/2025 3:55 AM EDT BLOOD CULTURE (AEROBIC/ANAEROBIC SET) Routine 03/01/2025 3:45 AM EDT BLOOD CULTURE (AEROBIC/ANAEROBIC SET) Routine 03/01/2025 3:30 AM EDT MAGNESIUM, PLASMA Routine 02/28/2025 4:0 3 AM EDT CBC W/O DIFFERENTIAL Routine 02/28/2025 4:03 AM EDT BASIC METABOLIC PANEL, PLASMA Routine 02/28/2025 4:03 AM EDT INSERT PERIPHERAL IV STAT 02/27/2025 6:13 PM EDT ECHO, ADULT TRANSTHORACIC COMPLETE Routine 02/27/2025 10:50 AM EDT VANCOMYCIN, PEAK, PLASMA Timed 02/27/2025 10:46 AM EDT LIPID PROFILE, PLASMA Routine 02/27/2025 4:33 AM EDT HEMOGLOBIN A1C Routine 02/27/2025 4:33 AM EDT BASIC METABOLIC PANEL, PLASMA Routine 02/27/2025 4:33 AM EDT CBC W/O DIFFERENTIAL Routine 02/27/2025 4:33 AM EDT BLOOD CULTURE [...] 9:3 4 AM EDT Chest wall abscess ANESTHESIA ARTERIAL LINE PLACEMENT Routine 02/26/2025 9:33 AM EDT PB ANESTHESIA PLACEHOLDER Routine 02/26/2025 8:53 AM EDT HI AN ELECTIVE ENDOTRACHEAL AIRWAY Routine 02/26/2025 8:53 AM EDT INCISION AND DRAINAGE, WOUND, STERNUM, WITH IRRIGATION, DEBRIDEMENT, AND SECONDARY CLOSURE 02/26/2025 8:28 AM EDT Chest wall abscess PREPARE RBC Routine 02/26/2025 8:12 AM EDT TYPE AND SCREEN Routine 02/25/2025 4:54 PM EDT WOUND CULTURE AND GRAM STAIN STAT 02/25/2025 4:46 AM EDT HEPATITIS C VIRUS (HCV) QUANTITATIVE PCR - ED STAT 02/25/2025 3:18 AM EDT ED HIV 1/2 ANTIBODY/ANTIGEN SCREEN WITH REFLEX TO HIV I/II DIFFERENTIATION STAT 02/25/2025 3:18 AM EDT ED PROTOCOL HIV 1/2 ANTIBODY/ANTIGEN SCREEN W/REFLEX TO HIV 1/2 ANTIBODY DIFFERENTIATION STAT 02/25/2025 3:18 AM EDT HEPATITIS C ANTIBODY - ED W/REFLEX TO HCV QUANT PCR STAT 02/25/2025 3:18 AM EDT SEDIMENTATION RATE, AUTOMATED STAT 02/25/2025 3:18 AM EDT C-REACTIVE PROTEIN, PLASMA STAT 02/25/2025 3:18 AM EDT PHOSPHORUS, PLASMA STAT 02/25/2025 3: 18 AM EDT MAGNESIUM, PLASMA STAT 02/25/2025 3:1 8 AM EDT COMPREHENSIVE METABOLIC PANEL, PLASMA STAT 02/25/2025 3:18 AM EDT CBC WITH AUTO DIFFERENTIAL STAT 02/25/2025 3:18 AM EDT BACTERIAL ID GRAM POSITIVE Routine 02/25/2025 3:18 AM EDT BLOOD CULTURE (AEROBIC/ANAEROBIC SET) STAT 02/25/2025 3:18 AM EDT BLOOD CULTURE (AEROBIC/ANAEROBIC SET) STAT 02/25/2025 3:[address] THORACIC OUTSIDE IMAGES 02/24/2025 8:44 PM EDT from Last 3 Months Results * PICC SINGLE LUMEN (SMARTFORM LINK) (03/04/2025 4:49 PM EDT) Narrative Maxwell Roper RN - 03/04/2025 4:49 PM EDT Maxwell Roper RN 03/04/2025 4:50 PM Insert PICC line Date/Time: 03/04/2025 4:49 PM Performed by: Maxwell Roper RN Authorized by: Sherlyn Cisse MD [place] Protocol: Verbal consent obtained?: Yes Written consent [...] vein Patient position: Flat Catheter Lot #: [id number] 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 us Sherlyn Cisse MD IV THERAPY ORDERABLES Final Re sult * Morphology (03/03/2025 2:11 AM EDT) RBC Morphology RBC Morphology Consistent with Indices and RDW LAB HEMATOLOGY METHOD 03/03/2025 3:14 AM EDT [facility] Platelet Estimate Platelet smear estimate consistent with automated count LAB HEMATOLOGY METHOD 03/03/2025 3:14 AM EDT [facility] Blood Venous blood specimen / Unknown Venipuncture / Unknown 03/03/2025 2:11 AM EDT 03/03/2025 2:25 AM EDT us Kelsie Carty APRN LAB BLOOD ORDERABLES Final R esult [facility] [address] [place] [address] * (ABNORMAL) Manual Differential (03/03/2025 2:11 AM EDT) Blasts % 0 % LAB HEMATOLOGY METHOD 03/03/2025 3:14 AM EDT [facility] Promyelocytes % 0 % LAB HEMATOLOGY METHOD 03/03/2025 3:14 AM EDT [facility] Myelocytes % 2 % LAB HEMATOLOGY METHOD 03/03/2025 3:14 AM EDT [facility] Metamyelocytes % 3 % LAB HEMATOLOGY METHOD 03/03/2025 3:14 AM EDT [facility] Neutrophils % 75 % LAB HEMATOLOGY METHOD 03/03/2025 3:14 AM EDT [facility] Lymphocytes % 14 % LAB HEMATOLOGY METHOD 03/03/2025 3:14 AM EDT [facility] Reactive Lymphocytes % 0 % LAB HEMATOLOGY METHOD 03/03/2025 3:14 AM EDT [facility] Monocytes % 3 % LAB HEMATOLOGY METHOD 03/03/2025 3:14 AM EDT [facility] Eosinophils % 3 % LAB HEMATOLOGY METHOD 03/03/2025 3:14 AM EDT [facility] Basophils % 0 % LAB HEMATOLOGY METHOD 03/03/2025 3:14 AM EDT [facility] Blasts Absolute 0.00 10*3/UL LAB HEMATOLOGY METHOD 03/03/2025 3:14 AM EDT [facility] Promyelocytes Absolute 0.00 10*3/uL LAB HEMATOLOGY METHOD 03/03/2025 3:14 AM EDT [facility] Myelocytes Absolute 0.21 10*3/uL LAB HEMATOLOGY METHOD 03/03/2025 3:14 AM EDT [facility] Metamyelocytes Absolute 0.31 10*3/uL LAB HEMATOLOGY METHOD 03/03/2025 3:14 AM EDT [facility] Neutrophils Absolute 7.72(H) 1.60 - 6.10 10*3/uL LAB HEMATOLOGY METHOD 03/03/2025 3:14 AM EDT [facility] Lymphocytes Absolute 1.44 1.20 - 3.90 10*3/uL LAB HEMATOLOGY METHOD 03/03/2025 3:14 AM EDT [facility] Reactive Lymphocytes Absolute 0.00 10*3/uL LAB HEMATOLOGY METHOD 03/03/2025 3:14 AM EDT [facility] Monocytes Absolute 0.31 0.30 - 0.90 10*3/uL LAB HEMATOLOGY METHOD 03/03/2025 3:14 AM EDT [facility] Eosinophils Absolute 0.31 0.00 - 0.50 10*3/uL LAB HEMATOLOGY METHOD 03/03/2025 3:14 AM EDT [facility] Basophils Absolute 0.00 0.00 - 0.10 10*3/uL LAB HEMATOLOGY METHOD 03/03/2025 3:14 AM EDT [facility] Blood Venous blood specimen / Unknown Venipuncture / Unknown 03/03/2025 2:11 AM EDT 03/03/2025 2:25 AM EDT us Kelsie Carty APRN LAB BLOOD ORDERABLES Final R esult [facility] [address] [place] [address] * Blood Culture (Aerobic/Anaerobet Set) (03/03/2025 2:11 AM EDT) Only the most recent of8 resultswithin the time period is included. Culture No growth at day 5 GEENA 03/08/2025 4:02 AM EDT [facility] Blood Structure of antecubital vein / Unknown Venipuncture / Unknown 03/03/2025 2:11 AM EDT 03/03/2025 3:04 AM EDT Narrative [facility] - 03/08/2025 4:02 AM EDT Low blood volume submitted, results may be compromised us Kelsie Carty APRN LAB MICROBIOLOGY - GENERAL O RDERABLES Final Result [facility] [address] [place] [address] * CBC and Differential (03/03/2025 2:11 AM EDT) Only the most recent of2 resultswithin the time period is included. WBC Count 10.29 3.70 - 10.30 10*3/uL LAB HEMATOLOGY METHOD 03/03/2025 3:15 AM EDT [facility] RBC Count 5.48 4.60 - 6.10 10*6/uL LAB HEMATOLOGY METHOD 03/03/2025 3:15 AM EDT [facility] HGB 15.6 13.7 - 17.5 g/dL LAB HEMATOLOGY METHOD 03/03/2025 3:15 AM EDT [facility] HCT 47.6 40.0 - 51.0 % LAB HEMATOLOGY METHOD 03/03/2025 3:15 AM EDT [facility] Platelet Count 329 155 - 369 10*3/uL LAB HEMATOLOGY METHOD 03/03/2025 3:15 AM EDT [facility] MCV 87 79 - 98 fL LAB HEMATOLOGY METHOD 03/03/2025 3:15 AM EDT [facility] MCH 28.5 26.0 - 32.0 pg LAB HEMATOLOGY METHOD 03/03/2025 3:15 AM EDT [facility] MCHC 32.8 30.7 - 35.5 g/dL LAB HEMATOLOGY METHOD 03/03/2025 3:15 AM EDT [facility] RDW 12.9 11.5 - 14.5 % LAB HEMATOLOGY METHOD 03/03/2025 3:15 AM EDT [facility] MPV 9.1 8.8 - 12.5 fL LAB HEMATOLOGY METHOD 03/03/2025 3:15 AM EDT [facility] nRBC 0.0 <=0.0 per 100 WBCs LAB HEMATOLOGY METHOD 03/03/2025 3:15 AM EDT [facility] Differential Type Manual LAB HEMATOLOGY METHOD 03/03/2025 3:15 AM EDT [facility] Blood Venous blood specimen / Unknown Venipuncture / Unknown 03/03/2025 2:11 AM EDT 03/03/2025 2:25 AM EDT Narrative [facility] - 03/03/2025 3:15 AM [...] APRN LAB BLOOD ORDERABLES Final R esult [facility] [address] [place] [address] * Magnesium, Plasma (03/03/2025 2:11 AM EDT) Only the most recent of3 resultswithin the time period is included. Magnesium, Plasma 2.2 1.9 - 2.4 mg/dL 03/03/2025 2:55 AM EDT [facility] Blood Venous blood specimen / Unknown Venipuncture / Unknown 03/03/2025 2:11 AM EDT 03/03/2025 2:23 AM EDT us Kelsie Carty APRN LAB BLOOD ORDERABLES Final R esult [facility] [address] [place] [address] * (ABNORMAL) Hepatic function panel (03/03/2025 2:11 AM EDT) Conjugated Bilirubin, Plasma <0.2 <=0.3 mg/dL 03/03/2025 2:55 AM EDT [facility] Comment:Hemolyzed, result ma y be falsely decreased. Alkaline Phosphatase, Plasma 99 40 - 115 U/L 03/03/2025 2:55 AM EDT [facility] Total Bilirubin, Plasma 0.3 0.2 - 1.1 mg/dL 03/03/2025 2:55 AM EDT [facility] Albumin, Plasma 3.3(L) 3.5 - 5.2 g/dL 03/03/2025 2:55 AM EDT [facility] Total Protein 7.9 6.3 - 7.9 g/dL 03/03/2025 2:55 AM EDT [facility] ALT, Plasma 36 10 - 50 U/L 03/03/2025 2:55 AM EDT [facility] AST, Plasma 46 10 - 50 U/L 03/03/2025 2:55 AM EDT [facility] Comment:Hemolyzed, result ma y be falsely increased. Blood Venous blood specimen / Unknown Venipuncture / Unknown 03/03/2025 2:11 AM EDT 03/03/2025 2:23 AM EDT us Kelsie Carty APRN LAB BLOOD ORDERABLES Final R esult [facility] [address] [place] [address] * (ABNORMAL) CBC W/O Differential (03/01/2025 3:55 AM EDT) Only the most recent of3 resultswithin the time period is included. WBC Count 7.81 3.70 - 10.30 10*3/uL LAB HEMATOLOGY METHOD 03/01/2025 4:12 AM EDT [facility] RBC Count 4.51(L) 4.60 - 6.10 10*6/uL LAB HEMATOLOGY METHOD 03/01/2025 4:12 AM EDT [facility] HGB 12.8(L) 13.7 - 17.5 g/dL LAB HEMATOLOGY METHOD 03/01/2025 4:12 AM EDT [facility] HCT 40.5 40.0 - 51.0 % LAB HEMATOLOGY METHOD 03/01/2025 4:12 AM EDT [facility] Platelet Count 292 155 - 369 10*3/uL LAB HEMATOLOGY METHOD 03/01/2025 4:12 AM EDT [facility] MCV 90 79 - 98 fL LAB HEMATOLOGY METHOD 03/01/2025 4:12 AM EDT [facility] MCH 28.4 26.0 - 32.0 pg LAB HEMATOLOGY METHOD 03/01/2025 4:12 AM EDT [facility] MCHC 31.6 30.7 - 35.5 g/dL LAB HEMATOLOGY METHOD 03/01/2025 4:12 AM EDT [facility] RDW 13.0 11.5 - 14.5 % LAB HEMATOLOGY METHOD 03/01/2025 4:12 AM EDT [facility] MPV 9.5 8.8 - 12.5 fL LAB HEMATOLOGY METHOD 03/01/2025 4:12 AM EDT [facility] nRBC 0.0 <=0.0 per 100 WBCs LAB HEMATOLOGY METHOD 03/01/2025 4:12 AM EDT [facility] Blood Venous blood specimen / Unknown Venipuncture / Unknown 03/01/2025 3:55 AM EDT 03/01/2025 4:04 AM EDT Catalina Cuba MD LAB BLOOD ORDERABLES Final Result [facility] [address] [place] [address] * (ABNORMAL) Basic metabolic panel (03/01/2025 3:55 AM EDT) Only the most recent of3 resultswithin the time period is included. Glucose, Plasma 94 74 - 99 mg/dL 03/01/2025 4:37 AM EDT [facility] BUN, Plasma 14 7 - 21 mg/dL 03/01/2025 4:37 AM EDT [facility] Creatinine, Plasma 0.92 0.70 - 1.20 mg/dL 03/01/2025 4:37 AM EDT [facility] BUN/Creatinine Ratio 15 03/01/2025 4:37 AM EDT [facility] Sodium, Plasma 140 136 - 145 mmol/L 03/01/2025 4:37 AM EDT [facility] Potassium, Plasma 4.4 3.6 - 4.9 mmol/L 03/01/2025 4:37 AM EDT [facility] Chloride, Plasma 105 97 - 107 mmol/L 03/01/2025 4:37 AM EDT [facility] CO2, Plasma 25 22 - 29 mmol/L 03/01/2025 4:37 AM EDT [facility] Anion Gap 10 6 - 16 mmol/L 03/01/2025 4:37 AM EDT [facility] Total Calcium, Plasma 8.8(L) 8.9 - 10.2 mg/dL 03/01/2025 4:37 AM EDT [facility] eGFRcr 110.6 mL/min/1.7 3m*2 03/01/2025 4:37 AM EDT [facility] Comment:Reported eGFRcr in m L/min/1.73m2 is based the CKD-EPI 2020 equation that does not use a race coefficient. Blood Venous blood specimen / Unknown Venipuncture / Unknown 03/01/2025 3:55 AM EDT 03/01/2025 4:04 AM EDT us Catalina Cuba MD LAB BLOOD ORDERABLES Final Result [facility] [address] [place] [address] * PERIPHERAL IV (SMARTFORM LINK) (02/27/2025 6:13 PM EDT) Narrative Maxwell Roper RN - 02/27/2025 6:13 PM EDT Maxwell Roper RN 02/27/2025 6:13 PM Insert peripheral IV Performed by: Maxwell Roper RN Authorized by: Sherlyn Cisse MD Hand hygiene: Hand hygiene performed prior [...] site covered with: Transparent semipermeable dressing Sherlyn Cisse MD IV THERAPY ORDERABLES Final Re sult [...] regurgitation. Tricuspid Valve: The leaflets appear thickened. 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 There appears to be restricted [...] is no recent study available for direct qgvu-vq-[id number] comparison. Left Ventricle Based on the linear [...] stenosis. Tricuspid Valve The leaflets appear thickened. 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 There appears to be restricted [...] is no recent study available for direct [id number]-mv-[id number] comparison. Wall Scoring Baseline Score Index: 1.00 The left ventricular wall motion is normal. us Sherlyn Cisse MD CV ECHO PROCEDURES Final Resul t * Vancomycin, Peak, Plasma Please draw ~2 hours after 0650 dose of vancomycin finishes infusing. Consider obtaining level via peripheral stick. If peripheral stick is not feasible, please ensure that line is flushed well prior to drawing level. Than... (02/27/2025 10:46 AM EDT) Vancomycin, Peak, Plasma 25.5 20.0 - 40.0 ug/mL 02/27/2025 11:21 AM EDT [facility] Blood Venous blood specimen / Unknown Venipuncture / Unknown 02/27/2025 10:46 AM EDT 02/27/2025 10:52 AM EDT Narrative [facility] - 02/27/2025 11:21 AM EDT Therapeutic Peak level: 20-40ug/mL Supra-therapeutic Peak level: >40 ug/mL us Alejandro Sandoval PA LAB BLOOD ORDERABLES Final R esult Performing Organization Address [facility]/ZIP Co de Phone Number [facility] [address] [place] [address] * Hemoglobin A1c (02/27/2025 4:33 AM EDT) Hemoglobin A1c 5.4 <5.7 % 02/27/2025 7:06 AM EDT [facility] Blood Venous blood specimen / Unknown Venipuncture / Unknown 02/27/2025 4:33 AM EDT 02/27/2025 4:45 AM EDT Narrative [facility] - 02/27/2025 7:06 AM EDT HA1C Interpretive Data: Diagnosis of Diabetes: Diabetic > or = 6.5% Pre-diabetic 5.7 to 6.4% Non-diabetic < or = 5.6% Glycemic Targets for Type I and Type II Diabetics: Non- Adults <7.0% Adults <6.0% Children and Adolescents <7.5% Source: [place] [employer]. Standards of medical care in diabetes,2017. Diabetes Care.2017:40 (suppl 1):S1-S135. [facility] BLOOD ORDERABLES Final R esult Performing Organization Address [facility] Co de Phone Number [facility] [address] [place] [address] * (ABNORMAL) Lipid panel (02/27/2025 4:33 AM EDT) Cholesterol, Plasma 108 <200 mg/dL 02/27/2025 5:14 AM EDT [facility] Comment: Cholesterol Reference Range (age >17 years): Desirable <200 mg/dL Borderline 200 to 239 mg/dL Undesirable >239 mg/dL HDL 28(L) >=40 mg/dL 02/27/2025 5:14 AM EDT [facility] Comment: HDL Cholesterol Reference Ranges (age >17 years): Female, acceptable > or = 50 mg/dL Male, acceptable > or = 40 mg/dL Triglycerides, Plasma 94 <150 mg/dL 02/27/2025 5:14 AM EDT [facility] Comment: Triglyceride Reference Range (age >17 years): Desirable: <150 mg/dL Borderline high: 150 to 199 mg/dL High: 200 to 499 mg/dL Very high: >499 mg/dL Increased risk of pancreatitis: >1000 mg/dL Cholesterol/HDL Ratio 4 02/27/2025 5:14 AM EDT [facility] LDL, Calculated 62 <100 mg/dL 5:14 AM EDT [facility] Comment: LDL Cholesterol Reference [...] 12 hours? No 02/27/2025 5:14 AM EDT [facility] Blood Venous blood specimen / Unknown Venipuncture / Unknown 02/27/2025 4:33 AM EDT 02/27/2025 4:42 AM EDT us Alejandro AARON LAB BLOOD ORDERABLES Final R esult [facility] [address] [place] [address] * XR Chest 1 View (02/27/2025 2:37 [...] Paulino MD on 02/27/2025 8:56 AM Sherlyn Cisse MD IMG XR PROCEDURES Final Result * (ABNORMAL) Routine Culture and Gram Stain (02/26/2025 10:10 AM EDT) Culture Light Growth 03/01/2025 3:23 PM EDT [facility] Culture Staphylococcus aureus(A) GEENA 03/01/2025 3:23 PM EDT [facility] Foreign Body Bone structure [...] aureus Vancomycin GEENA <=0.5 ug/ml: Susceptible Sherlyn Cisse MD LAB MICROBIOLOGY - GENERAL ORD ERABLES Final Result Performing Organization Address City/[facility]/ZIP Co de Phone Number [facility] [address] [place] [address] * Anaerobic Culture (02/26/2025 10:10 AM EDT) Only the most recent of2 resultswithin the time period is included. Culture No anaerobes isolated 03/03/2025 5:50 AM EDT [facility] Foreign Body Bone structure of sternum / Unknown 02/26/2025 10:10 AM EDT 02/26/2025 11:21 AM EDT Comment:Pre-op diagnosis: Chest wall abscess [L02.213] Sherlyn Cisse MD LAB MICROBIOLOGY - GENERAL ORD ERABLES Final Result Performing Organization Address City/[facility]/ZIP Co de Phone Number [facility] [address] [place] [address] * (ABNORMAL) POCT arterial blood gas gem (02/26/2025 9:42 AM EDT) pH, Arterial 7.42 7.35 - 7.45 02/26/2025 9:44 AM EDT [facility] pCO2, Arterial 41 32 - 45 mm Hg 02/26/2025 9:44 AM EDT [facility] pO2, Arterial 105 83 - 108 mm Hg 02/26/2025 9:44 AM EDT [facility] SO2, Arterial 99(H) 94 - 98 % 02/26/2025 9:44 AM EDT [facility] Base Excess, Arterial 1.9 -2 - 3 mmol/L 02/26/2025 9:44 AM EDT [facility] HCO3, Arterial 26.6(H) 22 - 26 mmol/L 02/26/2025 9:44 AM EDT [facility] Total Hemoglobin, Arterial, Whole Blood 13.6(L) 13.7 - 17.5 g/dL 02/26/2025 9:44 AM EDT [facility] Hematocrit, Arterial 41.0 40 - 51.0 % 02/26/2025 9:44 AM EDT [facility] Sodium, Arterial 135(L) 136 - 145 mmol/L 02/26/2025 9:44 AM EDT [facility] Potassium, Arterial 4.1 3.6 - 4.9 mmol/L 02/26/2025 9:44 AM EDT [facility] Chloride, Whole Blood 104 97 - 107 mmol/L 02/26/2025 9:44 AM EDT [facility] Glucose, Arterial 106(H) 74 - 99 mg/dL 02/26/2025 9:44 AM EDT [facility] Ionized Calcium, Arterial 4.7 4.6 - 5.1 mg/dL 02/26/2025 9:44 AM EDT [facility] Lactate, Arterial 0.6 0.5 - 1.6 mmol/L 02/26/2025 9:44 AM EDT [facility] Body Temperature 37.0 Celsius 02/26/2025 9:44 AM EDT [facility] pH, Temp Corrected, Arterial 7.42 7.35 - 7.45 02/26/2025 9:44 AM EDT [facility] pCO2, Temp Corrected, Arterial 41 32 - 45 mm Hg 02/26/2025 9:44 AM EDT [facility] pO2, Temp Corrected, Arterial 105 83 - 108 mm Hg 02/26/2025 9:44 AM EDT [facility] Landscape Contractor ID Julian Carina 02/26/2025 9:44 AM EDT [facility] Blood, Arterial Whole blood specimen / Unknown 02/26/2025 9:42 AM EDT 02/26/2025 9:44 AM EDT us Sherlyn Cisse MD LAB POINT OF CARE TE ST DOCKED DEVICE UNSOLICITED RESULTS Final Result [facility] [address] [place] [address] * (ABNORMAL) Abscess Culture and Gram Stain (02/26/2025 9:34 AM EDT) Culture Light Growth 03/01/2025 3:22 PM EDT [facility] Culture Staphylococcus aureus(A) GEENA 03/01/2025 3:22 PM EDT [facility] Comment:The organism value f or this result has been updated. These results have been appended to the previously preliminary verified report. Gram Stain Result Few Polymorphonuclear leukocytes(A) 03/01/2025 3:22 PM EDT [facility] Gram Stain Result Few Gram positive cocci in pairs(A) 03/01/2025 3:22 PM EDT [facility] Swab Bone structure of [...] aureus Vancomycin GEENA 1 ug/ml: Susceptible Sherlyn Cisse MD LAB MICROBIOLOGY - GENERAL ORD ERABLES Final Result [facility] [address] [place] [address] * Fungal Culture, Routine (02/26/2025 9:34 AM EDT) Culture No Fungal Growth at 1 Week 03/06/2025 9:03 AM EDT [facility] Swab Bone structure of sternum / Unknown 02/26/2025 9:34 AM EDT 02/26/2025 11:01 AM EDT Comment:Pre-op diagnosis: Chest wall abscess [L02.213] Sherlyn Cisse MD LAB MICROBIOLOGY - GENERAL ORD ERABLES Final Result [facility] [address] [place] [address] * PB ANESTHESIA NON-TIMED PROCEDURE PLACEHOLDER (02/26/2025 [...] MD ANESTHESIA ORDERABLES Final Res ult * HI AN ELECTIVE ENDOTRACHEAL AIRWAY, PB ANESTHESIA PLACEHOLDER [...] MD ANESTHESIA ORDERABLES Final Res ult * Type and screen (02/25/2025 4:54 PM EDT) ABO/Rh O Positive 02/25/2025 12:55 PM EDT BLOOD BANK Antibody Screen Negative 02/25/2025 12:55 PM EDT BLOOD BANK Specimen Expiration 02/28/2025 23:59 02/25/2025 12:55 PM EDT BLO[facility] Blood Venous blood specimen / Unknown Venipuncture / Unknown 02/25/2025 4:54 PM EDT 02/25/2025 5:14 PM EDT us Alejandro AARON LAB BLOOD BANK TEST ORDERABL ES Final Result BLOOD BANK [address] [place] [address], * (ABNORMAL) Wound Culture and Gram Stain (02/25/2025 4:46 AM EDT) CULTURE READING WOUND Moderate Growth 02/27/2025 3:19 PM EDT [facility] CULTURE READING WOUND Staphylococcus aureus(A) GEENA 02/27/2025 3:19 PM EDT [facility] Comment:The organism value f or this result has been updated. These results have been appended to the previously preliminary verified report. Gram Stain Result Numerous Polymorphonuclear leukocytes(A) 02/27/2025 3:19 PM EDT [facility] Gram Stain Result Numerous Gram positive cocci in pairs(A) 02/27/2025 3:19 PM EDT [facility] Gram Stain Result Numerous Gram positive cocci in clusters(A) 02/27/2025 3:19 PM EDT [facility] Swab Skin structure / [...] ORD ERABLES Final Result Performing Organization Address [facility]/ZIP Co de Phone Number [facility] [address] [place] [address] * ED HIV 1/2 Antibody/Antigen Screen w/Reflex to HIV 1/2 Differentiation (02/25/2025 3:18 AM EDT) Pathologist [facility] HIV 1 & 2 Antibody/Antigen Screen Non Reactive Non Reactive 02/25/2025 4:35 AM EDT [facility] Comment:Screening for HIV 1 & 2 antibodies, and P24 antigen is NONREACTIVE. No confirmatory testing is required. Blood Venous blood specimen / Unknown Venipuncture / Unknown 02/25/2025 3:18 AM EDT 02/25/2025 3:53 AM EDT Franco Guillory MD LAB BLOOD ORDERABLES Final Res ult Performing Organization Address [facility] Co de Phone Number [facility] [address] [place] [address] * (ABNORMAL) Bacterial ID Gram Positive (02/25/2025 3:18 AM EDT) Staphylococcus Result Detected( A) Not Detected 02/26/2025 4:46 AM EDT [facility] Comment:Assess if contaminan t or clinically relevant pathogen. Consider clinical stability and immune status of patient. Blood Venous blood specimen / Unknown Venipuncture / Unknown 02/25/2025 3:18 AM EDT 02/25/2025 4:04 AM EDT Narrative [facility] - 02/26/2025 4:46 AM EDT Analytes include: Bacillus cereus group, Bacillus subtilis group, Corynebacterium, Cutibacterium acnes (P acnes), Enterococcus, Enterococcus faecalis, Enterococcus faecium, Lactobacillus, Listeria, Listeria monocytogenes, Micrococcus, Staphylococcus, Staphylococcus aureus, Staphylococcus epidermidis, Stapylcoccus lugdunesis, Streptococcus, Streptococcus agalactiae, Streptococcus anginosus group, Streptococcus pneumoniae, Streptococcus pyogenes, Goode gram negative target, Goode Yamini target and mecA, mecC, Leon and vanB resistance genes. NOTE: A Not Detected result for result for a resistance gene does not indicate susceptibility to antimicrobials by mechanisms other than carrying the resistance genes detected by the BCID-GP assay. . GOODE YAMINI: Inclusive of Yamini albicans, Yamini glabrata, Pichia kudriavzevii (formerly Yamini krusei) and Yamini parapsilosis only. . GOODE GRAM NEGATIVE: Includes but not limited to Acinetobacter, Bacteroides, Enterobacteriaceae, Neisseria, Pseudomonas, Serratia, Stenotrophomonas maltophilia. . Reference Value: Not detected for all analytes tested. Franco Guillory MD LAB MICROBIOLOGY - GENERAL ORD ERABLES Final Result [facility] [address] [place] [address] * Hepatitis C Virus (HCV) Quantitative PCR - ED (02/25/2025 3:18 AM EDT) [facility] Hepatitis C Virus (HCV) Quantitative Interpretation Not Detected Not Detected. 02/27/2025 2:45 PM EDT [facility] Blood Venous blood specimen / Unknown Venipuncture / Unknown 02/25/2025 3:18 AM EDT 02/25/2025 3:53 AM EDT Narrative [facility] - 02/27/2025 2:45 PM [...] Organization Address City/[facility]/[place] [address] * (ABNORMAL) Hepatitis C Antibody - ED (02/25/2025 3:18 AM EDT) Pathologist [facility] Hepatitis C Antibody Positive(A ) Negative 02/25/2025 4:40 AM EDT [facility] Blood Venous blood specimen / Unknown Venipuncture / Unknown 02/25/2025 3:18 AM EDT 02/25/2025 3:53 AM EDT Franco Guillory MD LAB BLOOD ORDERABLES Final Res ult Performing Organization Address [facility] [place] [address] * (ABNORMAL) Sed rate, automated (02/25/2025 3:18 AM EDT) [facility] Sedimentation Rate 65(H) <15 mm/hr 2024 3:54 AM EDT [facility] Blood Venous blood specimen / Unknown Venipuncture / Unknown 02/25/2025 3:18 AM EDT 02/25/2025 3:40 AM EDT Franco Guillory MD LAB BLOOD ORDERABLES Final Res ult Performing Organization Address City/[facility] [place] [address] * (ABNORMAL) C-Reactive protein (02/25/2025 3:18 AM EDT) [facility] CRP, Plasma 282.5(H) <=8.0 mg/L 02/25/2025 4:23 AM EDT [facility] Blood Venous blood specimen / Unknown Venipuncture / Unknown 02/25/2025 3:18 AM EDT 02/25/2025 3:53 AM EDT Narrative [facility] - 02/25/2025 4:23 AM EDT This CRP test is appropriate for assessment of infection, systemic inflammation and/or tissue injury. To assess cardiovascular disease risk order high sensitivity CRP (CRPH). Franco Guillory MD LAB BLOOD ORDERABLES Final Res ult Performing Organization Address City/[facility]/ZIP Co de Phone Number [facility] [address] [place] [address] * Phosphorus (02/25/2025 3:18 AM EDT) Phosphorus, Plasma 2.7 2.5 - 4.5 mg/dL 02/25/2025 4:23 AM EDT [facility] Blood Venous blood specimen / Unknown Venipuncture / Unknown 02/25/2025 3:18 AM EDT 02/25/2025 3:53 AM EDT Franco Guillory MD LAB BLOOD ORDERABLES Final Res ult Performing Organization Address City/[facility]/ZIP Co de Phone Number [facility] [address] [place] [address] * (ABNORMAL) CMP (02/25/2025 3:18 AM EDT) Glucose, Plasma 132(H) 74 - 99 mg/dL 02/25/2025 4:23 AM EDT [facility] BUN, Plasma 13 7 - 21 mg/dL 02/25/2025 4:23 AM EDT [facility] Creatinine, Plasma 0.86 0.70 - 1.20 mg/dL 02/25/2025 4:23 AM EDT [facility] BUN/Creatinine Ratio 15 02/25/2025 4:23 AM EDT [facility] Sodium, Plasma 137 136 - 145 mmol/L 02/25/2025 4:23 AM EDT [facility] Potassium, Plasma 3.7 3.6 - 4.9 mmol/L 02/25/2025 4:23 AM EDT [facility] Chloride, Plasma 101 97 - 107 mmol/L 02/25/2025 4:23 AM EDT [facility] CO2, Plasma 24 22 - 29 mmol/L 02/25/2025 4:23 AM EDT [facility] Anion Gap 12 6 - 16 mmol/L 02/25/2025 4:23 AM EDT [facility] Total Calcium, Plasma 9.2 8.9 - 10.2 mg/dL 02/25/2025 4:23 AM EDT [facility] Total Protein 7.4 6.3 - 7.9 g/dL 02/25/2025 4:23 AM EDT [facility] Albumin, Plasma 3.5 3.5 - 5.2 g/dL 02/25/2025 4:23 AM EDT [facility] AST, Plasma 20 10 - 50 U/L 02/25/2025 4:23 AM EDT [facility] Comment:Hemolyzed, result ma y be falsely increased. ALT, Plasma 16 10 - 50 U/L 02/25/2025 4:23 AM EDT [facility] Alkaline Phosphatase, Plasma 100 40 - 115 U/L 02/25/2025 4:23 AM EDT [facility] Total Bilirubin, Plasma 0.7 0.2 - 1.1 mg/dL 02/25/2025 4:23 AM EDT [facility] eGFRcr 115.1 mL/min/1.7 3m*2 02/25/2025 4:23 AM EDT [facility] Comment:Reported eGFRcr in m L/min/1.73m2 is based the CKD-EPI 2020 equation that does not use a race coefficient. Blood Venous blood specimen / Unknown Venipuncture / Unknown 02/25/2025 3:18 AM EDT 02/25/2025 3:53 AM EDT us Franco Guillory MD LAB BLOOD ORDERABLES Final Res ult [facility] [address] [place] [address] * CT THORACIC OUTSIDE IMAGES (02/24/2025 8:44 PM EDT) Anatomical Region Laterality Modality Computed Tomogra phy 02/24/2025 8:44 PM EDT us External Provider IMG CT PROCEDURES Final Result from Last 3 Months Insurance [employer] Advance Directives * Full Code (Latest Code Status on File) Date Activated Date Inactivated Comments 02/25/2025 4:20 AM 03/06/2025 3:45 PM Question Answer Comments I have reviewed the capacity from the link above and, if needed, have updated to appropriate status: Yes Care Teams Real Estate Loan Officer Relationship Specialty Start Date End Date Pcp, No [address] [place] [address] PCP - General Family Medicine 02/25/25 Francisco Javier Eller MD [address] [place] [address] Box Stacker 03/02/25
--- OUTSIDE RECORDS SUMMARY | 2025-03-12 11:52 | XMS_ITS | Encounter Summary ---
Author Organization Healthcare Address [address] [place] [address] Care Team Providers Care Dental Laboratory Assistant Name Role Phone Pcp, No Primary Care Provider Francisco Javier Mendez MD Unavailable [phone] Encounter Details Date Type Department Care Team (Latest Contact Info) Description 03/08/2025 Travel Social History Tobacco Use Types Packs/Day [...] any time in the past 12 m [facility], were you homeless or living in [...] Office Visit [place] [facility] [address], [facility] [address] [place] [address] Sherlyn Cisse MD [id number] [place] [phone] 03/27/2025 9:00 AM EDT Office Visit [address] [phone] Keny Chin MD [address] [place] [phone] 04/10/2025 9:00 AM EDT Office Visit [address] [address] Leela Chin MD [address] [place] [phone] documented as of this encounter Visit Diagnoses Not on filedocumented in this encounter Additional Health Concerns Assessment Noted Time A Body Mass Index follow-up plan has been documented for the patient 03/08/2025 1:43 PM EDT documented as of this encounter Care Teams Dental Laboratory Assistant Relationship Specialty Start Date End Date Pcp, No [address] [place] [address] PCP - General Family Medicine 02/25/25 Francisco Javier Eller MD [address] [place] [address] Security Control Center Operator 03/02/25 documented as of this encounter
--- OUTSIDE RECORDS SUMMARY | 2025-03-12 11:52 | XMS_ITS | Encounter Summary ---
Author Organization Healthcare Address [address] [place] [address] Care Team Providers Care Telephone Interceptor Operator Name Role Phone Pcp, No Primary Care Provider Francisco Javier Mendez MD Unavailable [phone] Encounter Details Date Type Department Care Team (Latest Contact Info) Description 03/12/2025 Travel Social History Tobacco Use Types Packs/Day [...] any time in the past 12 m [facility], were you homeless or living in a jail (including now)? No 02/27/2025 Utilities Answer Date [...] Description 03/26/2025 11:40 AM EDT Office Visit [place] [facility] [address], [facility] [address] [place] [address] Sherlyn Cisse MD [id number] [place] [address] 03/27/2025 9:00 AM EDT Office Visit [address] [phone] Keny Chin MD [address] [place] [phone] 04/10/2025 9:00 AM EDT Office Visit [address] [phone] Leela Chin MD [address] [place] [phone] documented as of this encounter Visit Diagnoses Not on filedocumented in this encounter Additional Health Concerns Assessment Noted Time A fall risk assessment has been complete d for the patient 03/12/2025 10:07 AM EDT A Body Mass Index follow-up plan has been documented for the patient 03/12/2025 10:37 AM EDT documented as of this encounter Care Teams Telephone Interceptor Operator Relationship Specialty Start Date End Date Pcp, [place] [address] [place] [address] PCP - General Family Medicine 02/25/25 Francisco Javier Eller [place] [address] Quality Control Tech 03/02/25 documented as of this encounter
[2025-03-12 11:55] VITALS: BMI 33.3
[2025-03-12 12:13] LABS: Basophils # 0.1 K/mm3 (0-0.2); Basophils % 0.8 % (0.1-2.0); Eosinophils # 0.1 Kmm3 (0.0-0.4); Eosinophils % 1.6 % (0.1-12.0); Hematocrit 45.3 % (42.0-52.0); Hemoglobin 14.7 g/dL (14.1-18.0); Immature Granulocytes # 0.05 10^3uL; Immature Granulocytes % 0.7 %; Lymphocytes # 1.2 K/mm3 (0.7-4.5); Lymphocytes % 15.9 % (10-50); Mean Corpuscular HGB Conc 32.5 g/dL (31.8-35.4); Mean Corpuscular Hemoglobin 28.2 pg (27.0-31.2); Mean Corpuscular Volume 86.9 fl (80-94); Mean Platelet Volume 9.8 fl (7.4-10.4); Monocytes # 0.4 K/mm3 (0.1-1.0); Monocytes % 4.6 % (1.7-9.3); Neutrophils # 5.8 K/mm3 (1.8-7.8); Neutrophils % 76.4 % (37.0-80.0); Nucleated Red Blood Cells # 0 10^3/uL; Nucleated Red Blood Cells % 0 %; Platelet Count 245 K/mm3 (142-424); Red Blood Count 5.21 M/mm3 (4.60-6.20); Red Cell Distribution Width 13.2 % (11.5-17.5); Red Cell Distribution Width-SD 41.3 fL; White Blood Count 7.6 K/mm3 (4.8-10.8)
[2025-03-12 12:21] LABS: Blood Urea Nitrogen 14 mg/dl (9-20); Creatinine Clearance Estimated 189 mL/min (50-200); Estimated Glomerular Filt Rate 95 ml/min (>60); GFR (African American) 116 ML/MIN (>60)
[2025-03-12 12:27] LABS: C-Reactive Protein 11.7 mg/L (0-4)
== END 2025-03-12 12:20 | disposition home or self-care (01) ==
LOC: INF 11:45
PROVIDERS: Physician Assistant; Visit Provider Student in an Organized Health Care Education/Training Program
DX: R78.81 Bacteremia (principal); B95.61 Methicillin susceptible Staphylococcus aureus infection as the cause of diseases classified elsewhere
CPT/HCPCS: 36592; 82565; 84520; 85025; 86140

== ENCOUNTER 2025-03-19 09:29 | Outpatient (CLI) | payer OTHER, MEDICAID, SELFPAY ==
--- OUTSIDE RECORDS SUMMARY | 2025-02-25 02:42 | XMS_ITS | Encounter Summary ---
Author Organization Healthcare Address [address] [place] [address] Care Team Providers Care Sheep Sorter Name Role Phone Pcp, No Primary Care Provider Unavailvidal e Francisco Javier Eller MD Unavailable [phone] Reason for Visit * Reason Comments Wound Check * Auth/Cert (Routine) Specialty Diagnoses / Procedures Referred By Kerry t Referred To Contact Diagnoses Sternal wound dehiscence, initial encounter chest abscess at surgical scar near mediastinum with hx cabg 2021 at [facility] Sherlyn Daniel MD [address] [address] Phone: tel: fax: [facility] A Emergency Department [address] [place] [address] Phone: tel: Referral ID Status Reason Start Date Expiration Date Visits Re quested Visits Authorized [id number] 1 1 Encounter Details Date Type Department Care Team (Latest Contact Info) Description 02/25/2025 2:42 AM EDT - 03/06/2025 1:35 PM EDT Hospital Encounter [facility] Inpatient [address] [place] [id number] Franco Guillory MD [address] [place] [address] Sherlyn Daniel MD [address] [address] Chest wall abscess (Primary Dx); [...] any time in the past 12 m [facility], were you homeless or living in a group home (including now)? No 02/27/2025 Utilities Answer Date [...] 1 each 5 04/10/20 25 HYDROcodone-acetami nophen ([place]) 5-325 MG tablet Take 1 tablet by [...] MD PCP name and Address: Pcp, [facility] [address] [place] [address] / [facility] [address] Referring provider name and address: Stephen Tello, SONYA [address] [place] [address] [place], [place] Chief Concern, Brief History of Present Illness, and Hospital Course Alex Amaya is a 34 y.o. male with history of IV drug use on suboxone, infectious endocarditisrequiring tricuspid valve repair in [place] in 2019. He states that he had to have several incision and drainages of the superior aspect of his sternotomy scar that occurred in the medical facility at the retirement that he was in due to drainage [...] and got worse so he went to [facility] where he was found to have [...] Your Medications These medications were sent to [facility] - [place], [place] - [address], [facility] [address] ceFAZolin injection These medications were sent to [facility] [place], [place] - [address] [facility] [address] lidocaine 5 % patch methocarbamol 750 MG [...] leaflet repair and De Lucas procedure at [facility] ([place]) - OSH CT imaging uploaded and reviewed - 02/25: BCx (+) staph aureus - Underwent chest washout, wound debridement, removal of sternal plates, and wound vac placement on02/[address] Daniel (silver sponge so no WV change til Wednesday) - TTE shows LVEF 59%, mod dilated RV with nl RV fx. TV leaflets thickened. 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 There appears to be restricted [...] Post-Operative Pain - Continue home Suboxone - [facility] Obesity (POA) - BMI 33.47 [...] PM Keny Tristan MD [facility] 03/12/2025 9:40 AM Sherlyn Daniel MD [facility] 03/26/2025 11:40 AM Sherlyn Daniel MD [facility]TCHKYC [facility] 03/27/2025 9:00 AM Keny Chin MD IDBCCLX [place] 04/10/2025 9:00 AM Leela Chin MD IDBCCLX [place] Follow-up: Francisco [facility]avier Ell[facility] [place] [id number] Go on 04/26/2025 Your appointment time is 2:10pm Please arrive 15 minutes early and bring bottles of medication [facility] [address] [place] [id number] Go on 03/12/2025 03/12/25 at 11:30 AM - Infusion Center for PICC and labs Wound Vac Changes MWF - same location, but in Physical Therapy Department - First Appointment 03/14/25 9:00 AM [facility] [address] [place] [address] Follow up for IV antibiotics and supplies Stephen Tello, SONYA [address] [place] [address] [facility] Test Results Pending At [...] Note Alex Amaya 34 y.o. male CSN: [id number] Admission: 02/25/2025 2:42 AM Primary Problem: Sternal wound dehiscence, initial encounter Primary Fixed Route Bus Operator: Primary Caregiver: Self Assistance Available at Discharge: Availability of Care Givers (#Hours): 24 hours, No assistance needed Family/Fixed Route Bus Operator(s) Willingness Assessed to care for patient at [...] days Follow-up: Francisco Javier Eller MD [address] [facility] [id number] Go on 04/26/2025 Your appointment time is 2:10pm Please arrive 15 minutes early and bring bottles of medication [facility] [address] [facility] [address] [place] [address] Go on 03/12/2025 03/12/25 at 11:30 AM - Infusion Center for PICC and labs Wound Vac Changes MWF - same location, but in Physical Therapy Department - First Appointment 03/14/25 9:00 AM [facility] [address] [place] [address] Follow up for IV antibiotics and supplies Stephen Tello, SONYA [address] [place] [address] [facility] Discharge Transportation: Transportation Anticipated: [...] vac changes and then will go to [facility]. S/O will assist and transport. Lise Christine, [...] note were not included. [address] [place]: Rescue Guide for Opioid Overdose Step 1 [...] from the original note were not included. [id number] Methocarbamol Brand Name(s): Robaxin??; also available generically [...] be awakened, immediately call emergency services at 137. What OTHER INFORMATION should I know? Keep all appointments with your doctor. Do not let anyone else take your medication. Ask your pharmacist any questions you have about refilling your prescription. It is important for you to keep a written list of all of the prescription and nonprescription (baca-vjq-ggnseqs) medicines you are taking, as well as [...] or pharmacist about specific clinical use. The [place] [employer] represents that the information provided hereunder was formulated with a reasonable standard of care, and in conformity with professional standards in the field. The [place] [employer] makes no representations or warranties, express or implied, including, but not limited to, any implied warranty of merchantability and/or fitness for a particular purpose, with respect to such information and specifically disclaims all such warranties. Users are advised that decisions regarding drug therapy are complex medical decisions requiring the independent, informed decision of an appropriate health director of career services, and the information is provided for informational purposes only. The entire monograph for a drug should be reviewed for a thorough understanding of the drug's actions, uses and side effects. The [place] [employer] does not endorse or recommend the use of any drug.The information is not a substitute for medical care. AHFS?? Patient Medication Information?. ?? Copyright, 2023. The [place] [employer]-System Pharmacists??, [address], [address], [place], [place]. All Rights Reserved. Duplication for commercial use must be authorized by [facility]. Selected Revisions: May 18, 2017. AHFS?? Patient Medication Information?. ?? Copyright, 2024 * [facility] - Barbara Martins - 03/06/2025 9:41 AM EDT Images from the original note were not included. [id number] Lidocaine Transdermal Patch Brand Name(s): Absorbine Jr?? [...] or years after a shingles infection). Nonprescription (chgm-jwu-svwxecc) lidocaine (Absorbine Jr, Aspercreme, Lidoca re, Salonpas, [...] or doctor for a copy of the director of assisted living's information for the patient. Are there OTHER [...] if you have or have ever had veptfsy-1-mqxchzogh dehydrogenase (G-6PD) deficiency (an inherited blood disorder), [...] and out of their sight and reach. [email or web address]://www.[email or web address].org Unneeded medications should be disposed of in [...] be awakened, immediately call emergency services at 551. Symptoms of overdose may include: ?? lightheadedness [...] of all of the prescription and nonprescription (ekdn-ycy-yfsiyyj) medicines you are taking, as well as [...] or pharmacist about specific clinical use. The [place] [employer]. represents that the information provided hereunder was formulated with a reasonable standard of care, and in conformity with professional standards in the field. The [employer] [employer]. makes no representations or warranties, express or implied, including, but not limited to, any implied warranty of merchantability and/or fitness for a particular purpose, with respect to such information and specifically disclaims all such warranties. Users are advised that decisions regarding drug therapy are complex medical decisions requiring the independent, informed decision of an appropriate health director of career services, and the information is provided for informational purposes only. The entire monograph for a drug should be reviewed for a thorough understanding of the drug's actions, uses and side effects. The [employer] [employer] does not endorse or recommend the use of any drug.The information is not a substitute for medical care. AHFS?? Patient Medication Information?. ?? Copyright, 2023. The [employer] [employer] Pharmacists??, [address], [address], [place], [place]. All Rights Reserved. Duplication for commercial use must be authorized by [facility]. Selected Revisions: March 18, 2021. AHFS?? Patient Medication Information?. ?? Copyright, 2024 * Tyler Easley - Barbara Martins - 03/06/2025 9:41 AM EDT Images from the original note were not included. [id number] Cefazolin Injection Brand Name(s): Ancef?, Kefzol?; also [...] of all of the prescription and nonprescription (xtot-hea-vixnwje) medicines you are taking, as well as [...] or pharmacist about specific clinical use. The [place] [employer]. represents that the information provided hereunder was formulated with a reasonable standard of care, and in conformity with professional standards in the field. The [place] [employer]. makes no representations or warranties, express or implied, including, but not limited to, any implied warranty of merchantability and/or fitness for a particular purpose, with respect to such information and specifically disclaims all such warranties. Users are advised that decisions regarding drug therapy are complex medical decisions requiring the independent, informed decision of an appropriate health director of career services, and the information is provided for informational purposes only. The entire monograph for a drug should be reviewed for a thorough understanding of the drug's actions, uses and side effects. The [employer] [employer]. does not endorse or recommend the use of any drug.The information is not a substitute for medical care. AHFS?? Patient Medication Information?. ?? Copyright, 2023. The [place] [employer] Pharmacists??, [address], [address], [place], [place]. All Rights Reserved. Duplication for commercial use must be authorized by [facility]. Selected Revisions: March 23, 2024. AHFS?? [...] present and normoactive x 4 quadrants SKIN: [place], warm, and dry. No rash, sores, or [...] leaflet repair and De Lucas procedure at [facility]) - OSH CT imaging uploaded and reviewed - 02/25: BCx (+) staph aureus - Underwent chest washout, wound debridement, removal of sternal plates, and wound vac placement on02/[address] Daniel (silver sponge so no WV change til Wednesday) - TTE shows LVEF 59%, mod dilated RV with nl RV fx. TV leaflets thickened. 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 There appears to be restricted [...] WV changes, continue home Suboxone Cardiothoracic Surgery [phone] * Progress Notes - Lise Christine RN - 03/05/2025 3:07 PM EDT Case Management Discharge Note Alex Amaya 34 y.o. male CSN: [id number] Admission: 02/25/2025 2:42 AM Primary Problem: Sternal wound dehiscence, initial encounter Primary Fixed Route Bus Operator: Primary Caregiver: Self Assistance Available at Discharge: Availability of Care Givers (#Hours): 24 hours, No assistance needed Family/Fixed Route Bus Operator(s) Willingness Assessed to care for patient at [...] 30 days Follow-up: Francisco Javier Ell[facility] [id number] Go on 04/26/2025 Your appointment time is 2:10pm Please arrive 15 minutes early and bring bottles of medication [facility] [address] [place] [phone] Go on 03/12/2025 03/12/25 at 11:30 AM - Infusion Center for PICC and labs Wound Vac Changes MWF - same location, but in Physical Therapy Department - First Appointment 03/14/25 9:00 AM [facility] [address] [place] [address] Follow up for IV antibiotics and supplies Discharge Transportation: Transportation Anticipated: family or friend will provide Transportation Home at Discharge: Family/Friend will Provide Follow Up Transport: Transportation Needed to Follow up Appoinments: Family/Friend will Provide Additional Comments: Per primary team patient is medically ready for discharge. Patient will discharge with IV antibiotics from [facility] - supplies will be delivered to bedside. Wound vac ordered through [facility] - will be delivered to bedside. Patient will follow up in Cardiovascular Clinic for first two wound vac changes, then will go to [facility] starting March 14. Patient also scheduled to go to [facility]ster for PICC care and labs. Family will [...] Roper RN Authorized by: Sherlyn Daniel MD [place] Protocol: Verbal consent obtained?: Yes Written consent [...] vein Patient position: Flat Catheter Lot #: [id number] Catheter director of assisted living: [employer] Catheter placed: Single lumen Catheter size: 4 [...] present and normoactive x 4 quadrants SKIN: [place], warm, and dry. No rash, sores, or [...] leaflet repair and De Lucas procedure at [facility] ([place]) - OSH CT imaging uploaded and reviewed - 02/25: BCx (+) staph aureus - Underwent chest washout, wound debridement, removal of sternal plates, and wound vac placement with Dr Daniel (silver sponge so no WV change til Wednesday) - TTE shows LVEF 59%, mod dilated RV with nl RV fx. TV leaflets thickened. 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 There appears to be restricted [...] present and normoactive x 4 quadrants SKIN: [place], warm, and dry. No rash, sores, or [...] leaflet repair and De Lucas procedure at [facility] ([place]) - OSH CT imaging uploaded and reviewed - 02/25: BCx (+) staph aureus - Underwent chest washout, wound debridement, removal of sternal plates, and wound vac placement on02/[address] Daniel (silver sponge so no WV change til Wednesday) - TTE shows LVEF 59%, mod dilated RV with nl RV fx. TV leaflets thickened. 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 There appears to be restricted [...] Post-Operative Pain - [facility] Obesity (POA) - BMI 33.47 - Complicates care Plan: - Continue cefazolin per ID - Continue wound vac - Per ID, if BC from 02/27 & 03/01 remain negative, okay to order single lumen PICC. Cardiothoracic Surgery [phone] * Care Plan - Yared Cartwright RN [...] leaflet repair and De Lucas procedure at [facility] ([place]) - OSH CT imaging uploaded and reviewed - 02/25: BCx (+) staph aureus - Underwent chest washout, wound debridement, removal of sternal plates, and wound vac placement on02/[address] Daniel (silver sponge so no WV change til Wednesday) - TTE shows LVEF 59%, mod dilated RV with nl RV fx. TV leaflets thickened. 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 There appears to be restricted [...] to order single lumen PICC. Cardiothoracic Surgery [phone] * Significant Event - Keny Chin MD [...] 0930AM WEEK 6 FOLLOWUP: 04/10/2025, 0900AM at [address] [place] [address] (Select Option 3 for IV Antibiotic / PICC line related issues) All questions regarding outpatient parenteral antimicrobials after discharge should be directed to the OPAT nurse navigator at (Select Option 3 for IV Antibiotics/PICC Issues) between 8am-5pm. After 5 pm, or during weekends/[place] holidays, please call the paging butane compressor operator at to reach the on-call ID [...] mg, Oral, q4h PRN, Carloz, Kelsie A, SURVEILLANCE DUAL RATE OFFICER Buprenorphine HCl-Naloxone HCl (Suboxone) 8-2 MG per SL film 8 mg, 8 mg, Sublingual, BID, Alejandro Sandoval PA, 8 mg at 03/02/25 0924 calcium carbonate (Tums) chewable tablet 500 mg, 500 mg, Oral, q6h PRN, Zacher, Kelsie A, SURVEILLANCE DUAL RATE OFFICER ceFAZolin (Ancef) injection 2 g, 2 g, Intravenous, q8h, Carloz, Kelsie A, SURVEILLANCE DUAL RATE OFFICER, 2 g at 03/02/25 0923 docusate sodium (Colace) capsule 100 mg, 100 mg, Oral, BID, Zacher, Kelsie A, SURVEILLANCE DUAL RATE OFFICER, 100 mg at 03/02/25 0923 heparin (porcine) injection 5,000 Units, 5,000 Units, Subcutaneous, q8h [facility], Maxwell Ocasio MD, 5,000 Units at 03/02/25 0515 HYDROmorphone (Dilaudid) tablet 2 mg, 2 mg, Oral, q6h PRN, Zacher, Kelsie A, SURVEILLANCE DUAL RATE OFFICER ibuprofen tablet 600 mg, 600 mg, Oral, q6h PRN, Zariley, Kelsie A, SURVEILLANCE DUAL RATE OFFICER lidocaine (Lidoderm) 5 % patch 1 patch, 1 patch, Apply externally, q24h, Zariley, Kelsie A, SURVEILLANCE DUAL RATE OFFICER, 1 patch at 03/01/252111 methocarbamol (Robaxin) tablet 750 mg, 750 mg, Oral, 4x daily, Zariley, Kelsie A, SURVEILLANCE DUAL RATE OFFICER, 750 mg at 03/02/25 0923 senna (Senokot) [...] mL, 10 mL, Intravenous, PRN, Kelsie Carty SURVEILLANCE DUAL RATE OFFICER O: Visit Vitals BP 130/79 (BP Location: [...] regurgitation. Tricuspid Valve: The leaflets appear thickened. 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 There appears to be restricted [...] is no recent study available for direct fmwy-fl-qvmf comparison. 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 Ptalso with h/o TV IE in 2019 for which he had TV leaflet repair and De Lucas procedure at [facility]). Pt was incarcerated at the time, and post-discharge developed chronic drainage from cephalad portion of sternal wound. Pt reportedly had I&Ds at retirement medical facility. Wound subsequentlyhas open and closed several times since 2021, including in December 2024. On/around 02/19/2025, wound again ruptured with large amount of purulent drainage, which pt described as largest amount of renata inage in several years. Pt seen at [facility] 02/24/2025. 02/24/2025 CT showed 2.4x2.1x2.6cm abscess at [...] leaflet repair and De Lucas procedure at [facility] ([place]) SUBSTANCE ABUSE: Illicit: H/o IVDA, polysubstance abuse. [...] abx therapy. For now, while inpatient at [facility]: Continue Cefazolin 2g IV q8h as [...] appointment in order to complete registration paperwork.) [facility] (Infectious Diseases Clinic) [address] [place] [address] CURING OVEN ATTENDANT: . FAX: [facility] will sign off. (Please reconsult us if his 02/27/2025 or 03/01/2025 blood cultures turn positive. This will affect dates of therapy and when PICC can be placed.) The following complex inpatient infectious disease services were performed today: Complex antimicrobial therapy counseling and treatment * Tyler Kuashal - Donna Rosario RN - 03/02/2025 10:43 [...] arms away from your body. * [facility] Donna Rosario RN - 03/02/2025 10:43 AM EDT Images from the original note were not included. [id number] Understanding Wound Separation After Surgery (Wound Dehiscence) [...] out Last Reviewed Date: 2024 00:00:00 ?? [id number] The [employer]. All rights reserved. This information is not intended as a substitute for professional medical care. Always follow your healthcare professional's instructions. * Consults - Asia Neumann RD - 03/02/2025 9:48 AM EDT Adult Nutrition Evaluation Note Alex Amaya 34 y.o. male CSN: [id number] Room/Bed 119/119A Nutrition evaluation type: assessment Reason for evaluation: [facility] course: 34 yo male transferred to from [facility] for evaluation of chronic sternotomy wound with chest abscess. He states that he had to have several incision and drainages of the superior aspect of his sternotomy scar that occurred in the medical facility at the retirement that he was in due to drainage with the last in 2021. He reports that the area has chronically healed and opened up multipletimes, most recently about 3 months ago. Past medical/ surgical history: IVDU on suboxone, infectious endocarditis requiring tricuspid valverepair in [place] in 2020. Medical History[1] Surgical History[2] Social [...] (Room air) O2 Delivery Method: Nasal cannula [place] Coma Scale Score: 15 Jhony Scale Score: [...] (260 lb 12.9 oz) BMI (Calculated): 33.47 [place] Body Weight (kg): 86.4 Percent [place] Body Weight: 137 Adjusted Body Weight (kg): 94.4 Estimated Needs: Metabolic Cart Study Results: Current Nutrition Intake: Diet Supplements: None Diet Order: Adult Diet Diet Texture: Regular Percent Meals Eaten (%): 100% x 3 meals Diet Experience and Nutrition History: Diet Education Provided: Will monitor Pertinent home medications: Reviewed Sikhism needs: Nutrition Focused Physical Exam: Physical exam [...] with nl RV fx. TV leaflets thickened. 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 There appears to be restricted motion/malcoaptation involving the septal leaflet. There is no tricuspid valve vegetation. There is severe tricuspid regurgitation. There is systolic flow reversal of the hepatic veins consistent with significant tricuspid valve regurgitation. OUD (POA) Post-Operative Pain - continue home Suboxone - [facility] Obesity (POA) - BMI 33.88 - complicates all aspects of care Plan: - Continue IV abx per ID - Continue wound vac - Will need PICC Cardiothoracic Surgery [phone] * Progress Notes - Estefania Salguero - 03/01/2025 8:08 AM EDT Case Management Adult Progress Note Alex Amyaa 34 y.o. male CSN: [id number] Admission: 02/25/2025 2:42 AM Primary Problem: Sternal [...] IV Access: pending Patient Specific Outpatient Circumstances: [address] [place] [address] Family Support: Extended Emergency Contact Information Primary Emergency Contact: Mary Lemus Mobile Relation: Significant Other Preferred language: Gibraltarian Helpdesk Technician needed? No Contact information: Alex Amaya -[phone] Afua Lemus (pt's S.O. -will administer IV abx) - [phone] Outpatient services (including home infusion, home health, [...] PICC care/labs;patient is requesting to go to [facility] close to home . After [...] via secure chat or staff messaging in [employer]. This note is not the final recommendations [...] mg, Oral, q6h PRN, August Cartya Gilbert, SURVEILLANCE DUAL RATE OFFICER ceFAZolin (Ancef) injection 2 g, 2 g, Intravenous, q8h, Kelsie Carty SURVEILLANCE DUAL RATE OFFICER, 2 g at 02/28/25 0908 docusate sodium (Colace) capsule 100 mg, 100 mg, Oral, BID, Carloz Keslie A, SURVEILLANCE DUAL RATE OFFICER, 100 mg at 02/27/25 2139 heparin (porcine) [...] mL, 10 mL, Intravenous, PRN, Kelsie Carty SURVEILLANCE DUAL RATE OFFICER O: Visit Vitals BP 134/77 (BP Location: [...] regurgitation. Tricuspid Valve: The leaflets appear thickened. 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 There appears to be restricted [...] is no recent study available for direct [id number] comparison. 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 Ptalso with h/o TV IE in 2019 for which he had TV leaflet repair and De Lucas procedure at [facility]). Pt was incarcerated at the time, and post-discharge developed chronic drainage from cephalad portion of sternal wound. Pt reportedly had I&Ds at [facility]. Wound subsequentlyhas open and closed several times since 2021, including in December 2024. On/around 02/19/2025, wound again ruptured with large amount of purulent drainage, which pt described as largest amount of renata inage in several years. Pt seen at [facility] 02/24/2025. 02/24/2025 CT showed 2.4x2.1x2.6cm abscess at [...] leaflet repair and De Lucas procedure at [facility] ([place]) SUBSTANCE ABUSE: Illicit: H/o IVDA, polysubstance abuse. [...] abx therapy. For now, while inpatient at [facility]: Continue Cefazolin 2g IV q8h as [...] treatment * Progress Notes - Kelsie Carty, SURVEILLANCE DUAL RATE OFFICER - 02/28/2025 11:30 AM EDT CVT Progress [...] with nl RV fx. TV leaflets thickened. 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 There appears to be restricted motion/malcoaptation involving the septal leaflet. There is no tricuspid valve vegetation. There is severe tricuspid regurgitation. There is systolic flow reversal of the hepatic veins consistent with significant tricuspid valve regurgitation. OUD (POA) Post-Operative Pain - continue home Suboxone - [facility] Obesity (POA) - BMI 33.88 - complicates all aspects of care Plan: - continue IV abx per ID - continue wound vac Cardiothoracic Surgery [phone] * Care Plan - Nasra Jasmine RN [...] needed in the future. Mayelin Caruso PharmD, [facility] Clinical Pharmacist - Cardiology Contact via secure [...] of HCV workup. Branden Elizalde, Pharm D. [facility] via [...] tablet 600 mg, 600 mg, Oral, q6h SALU, Maxwell Ocasio MD, 600 mg at 02/27/25 [...] regurgitation. Tricuspid Valve: The leaflets appear thickened. 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 There appears to be restricted [...] is no recent study available for direct [id number] comparison. 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 Ptalso with h/o TV IE in 2019 for which he had TV leaflet repair and De Lucas procedure at [facility] ([place]). Pt was incarcerated at the time, and post-discharge developed chronic drainage from cephalad portion of sternal wound. Pt reportedly [facility]Ds at [facility]. Wound subsequentlyhas open and closed several times since 2021, including in December 2024. On/around 02/19/2025, wound again ruptured with large amount of purulent drainage, which pt described as largest amount of renata inage in several years. Pt seen at [facility] 02/24/2025. 02/24/2025 CT showed 2.4x2.1x2.6cm abscess at [...] leaflet repair and De Lucas procedure at [facility] SUBSTANCE ABUSE: Illicit: H/o IVDA, polysubstance abuse. [...] abx therapy. For now, while inpatient at [facility]: D/c Vanco and Zosyn Start Cefazolin [...] Note Alex Amaya 34 y.o. male CSN: [id number] Admission: 02/25/2025 2:42 AM Primary Problem: Sternal wound dehiscence, initial encounter PCP: Pcp, No Emergency Contact: Extended Emergency Contact Information Primary Emergency Contact: Mary Lemus Mobile Relation: Significant Other Preferred language: Gibraltarian Helpdesk Technician needed? No Insurance: Primary Visit Coverage Payer Plan Sponsor Code Group Number Group Name AETNA AETNA OPEN CHOICE ACCESS [id number] Primary Visit Coverage Subscriber Subscriber ID Subscriber Name Subscriber SSN Subscriber Address [id number] Alex Amaya [id number] [address] [place] [address] Secondary Visit Coverage Payer Plan Sponsor Code Group Number Group Name WELLCARE MEDICAID WELLCARE MEDICAID Secondary Visit Coverage Subscriber Subscriber ID Subscriber Name Subscriber SSN Subscriber Address [id number] Alex Amaya [id number] [address] [place] [address] Patient information: Primary Caregiver: Self Accompanied by/Relationship: Mary Lemus ([phone]) Support System: Immediate family Daily Living Activities: Functional Status: Independent Living Arrangements: Spouse/Significant other, Children (5 y.o. child) Type of Residence: Private residence, Single Level (1-2 DANIS) [address] [facility] [address] Current DME: Equipment Currently Used at Home: [...] Dialysis Services: N/A Living Will/Advance Directive/Power of Pants Busheler /Guardian: Have you reviewed your Advance Directive [...] assessment; pt accompanied by significant other Mary Lemsu ([phone]). Pt does not have a POA/LW/AD. Pt [...] DC. Pt has never worked with an MANAGER OF COMPENSATION and has never stayed anywhere overnight for physical rehab. Pt prefers [facility] in [place] as his pharmacy. Pt confirms insurance listed [...] sounds present and normoactivex 4 quadrants SKIN: [place], warm, and dry. No rash, sores, or [...] Post-Operative Pain - continue home Suboxone - [facility] Obesity (POA) - BMI 32 - complicates all aspects of care Plan: - continue IV abx per ID - continue wound vac - TTE completed this morning, read pending Cardiothoracic Surgery [phone] * Discharge Instr - Other Orders - Donna Rosario RN - 02/27/2025 10:28 AM EDT Please arrive 30 minutes early for your appointment with Dr. Daniel Prior to your appointment, go to the radiology department on the 1st floor of the [facility] near [facility] for a chest x-ray. Then go [...] your incisions. Do NOT lift, push or pulley man 5 pounds for six weeks. Do NOT [...] Donna Rosario CT Surgery Nurse Navigator at [phone] Wednesday through Wednesday 7am- 3:30pm [facility] [phone] after 3:30 pm, weekends and holidays - ask for the CT surgeon longwall headgate operator. * Progress Notes - Alejandro Sandoval PA [...] sounds present and normoactivex 4 quadrants SKIN: [place], warm, and dry. No rash, sores, or [...] and wound vac placement on02/[address] Dnaiel - intra-op cultures pending - ID consulted, continue vanc and Zosyn - TTE pending OUD (POA) Post-Operative Pain - continue home Suboxone - [facility] Obesity (POA) - BMI 32 - complicates all aspects of care Plan: - continue IV abx per ID - continue wound vac Cardiothoracic Surgery [phone] * Anesthesia PACU Signout - Umberto Davis [...] CORONARY ARTERY BYPASS GRAFTING: Date: 02/26/2025 Location: [facility] Name: Alex Amaya : 1990, Pre-operative [...] suboxone, infectious endocarditisrequiring tricuspid valve repair in [place] in 2019. He states that he had to have several incision and drainages of the superior aspect of his sternotomy scar that occurred in the medical facility at the retirement that he was in due to drainage [...] midnight. Pacheco Ocasio MD Cardiothoracic Surgery Pager: [phone] * Significant Event - Alejandro Sandoval PA - 02/25/2025 1:35 PM EDT Patient seen and evaluated with Dr Daniel. Will go to OR tomorrow for chest washout and removal of sternal plates with Dr Daniel. Pre-op orders placed. Consent obtained and placed in paper chart. NPOp OK. CT Surgery [phone] * Consults - Kinga Mc MD - [...] valve repair with a DeVega Procedure at [facility] (2019), multiple I&Ds of superior sternotomy site most recent in 2021, and chronic drainage of sternotomy (last episode 3 months prior) who presents as a transfer from [facility] with new and worsened superior sternotomy drainage. MDET team were consulted to provide recommendations on therapy and management. Mr. Amaya first noted repeat drainage on 02/19/25, associated with fevers, chills, and swelling. He went to a local ED and was discharged. Given no change he then went to [facility]. CT Chest showed a fluid collection anterior to the sternum and was transferred to for ID follow up and CT surgery evaluation. Upon arrival to on 02/25 blood cultures were taken and have NGTD. Wound cultures have a GS positive for GPC in pairs and clusters. He was started on Vancomycin and Zosyn, [facility] Additional pertinent admission workup includes Hep C antibodypositivity, HIV non-reactive, CRP of 282.5, and an ESR of 65. When spoken to Mr. Amaya endorses persistent drainage from his sternal wound. In the room therewas considerable drainage on his dressing, which ID team changed. He endorsed the above history anddescribes following with a molder operator Dr. Park. Social: Was recently incarcerated until [...] Value Units Date/Time Blood Culture (Aerobic/Anaerobet Set) [[id number]] Collected: 02/25/25317 Order Status: Completed Specimen: Blood, Venous Updated: 02/25/25 06 Culture Culture in lab Blood Culture (Aerobic/Anaerobet Set) [[id number]] Collected: 02/25/25317 Order Status: Completed Specimen: Blood, Venous Updated: 02/25/25 0601 Culture Culture in lab Wound Culture and Gram Stain [[id number]] (Abnormal) Collected: 02/25/25445 Order Status: Completed Specimen: Swab from Cutaneous skin (specify site) Updated: 02/25/25 05 Gram Stain Result Numerous Polymorphonuclear leukocytes Numerous Gram positive cocci in pairs Numerous Gram positive cocci in clusters Antibiotics: Vancomycin 02/25-P Zosyn 02/25-P Assessment: Alex Amaya is a 34 y.o. male with history of IVDU on suboxone, nTVie s/p valve repair with a DeVega Procedure at [facility] (2019), multiple I&Ds of superior sternotomy site most recent in 2021, and chronic drainage of sternotomy (last episode 3 months prior) who presents as a transfer from [facility] with new and worsened superior sternotomy drainage. MDET team were consulted to provide recommendations on therapy and management. Cultures have not grown any specific organisms at this time, however GS with GPC in pairs and clusters. Agree with washout tomorrow and would obtain cultures. At this time can continue antibiotic therapy. # Hx of nTV ie s/p DeVega Procedure at [facility] (2019) # Sternotomy Site SSTI # Chronic [...] injection 5,000 Units 5,000 Units Subcutaneous q8h [facility] Cassidy Baptiste MD 5,000Units at 02/25/25 0446 [...] ID will follow. Sherman Gonzáles MD Pager: [phone] I spent greater than 110 minutes performing the following components of the encounter (on the day of the encounter): reviewing history, examining the patient, reviewing imaging and/or labs, echo, ECGand/or other imaging results, counseling the patient and family/caregiver, communicating with otherhealth health care administrator. The patient is receiving directed antibiotic therapy which requires monitoring of daily labs for toxicities. Greater than 50% of the time spent on the encounter was [id number] providing direct patient care, counseling for the [...] as appropriate. Thank you, Marcos Hopper PharmD, [facility] Clinical Staff Pharmacist * H&P - Cassidy Baptiste MD - 02/25/2025 4:21 AM EDTAssociated Order(s): Consult to Cardiothoracic Surgery Consult to Cardiothoracic Surgery Consult performed by: Cassidy Baptiste MD Consult ordered by: Franco Guilolry MD Reason for consult: sternal wound infection Reason for visit / Chief Complaint: sternal wound infection History of present illness: Alex Amaya is a 34 y.o. male with history of IV drug use on suboxone, infectious endocarditisrequiring tricuspid valve repair in [place] in 2019. He states that he had to have several incision and drainages of the superior aspect of his sternotomy scar that occurred in the medical facility at the retirement that he was in due to drainage [...] and got worse so he went to [facility] where he was found to have [...] Tobacco Use: Medium Risk (01/09/2025) Received from [facility] Patient History Smoking Tobacco Use: Former Smokeless [...] suboxone, infectious endocarditisrequiring tricuspid valve repair in [place] in 2019. He states that he had to have several incision and drainages of the superior aspect of his sternotomy scar that occurred in the medical facility at the retirement that he was in due to drainage [...] and got worse so he went to [facility] where he was found to have [...] [facility]/b multiple episodes of medial sternotomy site infection requiring debridement that occurred at a retirement facility (most recent ~2021) who presents with a draining wound at the superior portion of his sternotomy scar with concern for abscess. He states that when he was first postop from his original surgery, he had to have several incision and drainages of the superior aspect of his sternotomy scar that occurred in the medical facility at the retirement that he was in. He had not [...] and got worse so he went to [facility] where he was found to have the chest abscess. He was transferred to [facility] for evaluation with CT surgery and ID History provided by: Patient and medical records marine structural designer used: No Patient History Medical History[1] Surgical [...] Wound Culture and Gram Stain STAT Collected VIRGINAI LEWIS ED Course as of 02/25/25 0511 Sun February 25, 2025 0307 On initial evaluation, pt states that [JG] [address], evidence of extensive subcutaneous edema and infection in the anterior chest wall with fluid collection [JG] 0314 Reviewed of records from [facility], given 1 g ceftriaxone at 19:47. [...] None Disposition Admit Admitting/Attending Physician: SHERLYN DANIEL [[id number]] Provider Care Team: CVT CARDIAC SURGERY [[id number]] Are they the primary team?: Yes [1] - Virginia Lewis MD Internal Medicine, PGY-2 [phone] or via [employer] chat [1] Past Medical History: Diagnosis Date [...] Care Team (Late st Contact Info) Description 03/26/2025 11:40 AM EDT Office Visit [facility] [address], [address] [place] [address] Sherlyn Daniel MD [address] [place] [address] 03/27/2025 9:00 AM EDT Office Visit [facility] [address] [facility] [place] [phone] Keny Chin MD [address] [facility] [address] [place] [address] 04/10/2025 9:00 AM EDT Office Visit [facility] [address] [place] [address] Leela Chin MD [address] [facility] [address] [place] [address] Pending Results Name Type Priority Associated Diagnoses [...] Roper RN Authorized by: Sherlyn Daniel MD [place] Protocol: Verbal consent obtained?: Yes Written consent [...] vein Patient position: Flat Catheter Lot #: [id number] Catheter director of assisted living: Bard Catheter placed: Single lumen Catheter size: [...] All pertinent images were uploaded to PACS. Sherlyn Daniel MD IV THERAPY ORDERABLES Final Re sult * Morphology (03/03/2025 2:11 AM EDT) RBC Morphology RBC Morphology Consistent with Indices and RDW LAB HEMATOLOGY METHOD 03/03/2025 3:14 AM EDT [facility] Platelet Estimate Platelet smear estimate consistent with automated count LAB HEMATOLOGY METHOD 03/03/2025 3:14 AM EDT [facility] Blood Venous blood specimen / Unknown Venipuncture / Unknown 03/03/2025 2:11 AM EDT 03/03/2025 2:25 AM EDT us Kelsie Carty APRN LAB BLOOD ORDERABLES Final R esult [facility] [address] [place] [address] * (ABNORMAL) Manual Differential (03/03/2025 2:11 AM EDT) Blasts % 0 % LAB HEMATOLOGY METHOD 03/03/2025 3:14 AM EDT [facility] Promyelocytes % 0 % LAB HEMATOLOGY METHOD 03/03/2025 3:14 AM EDT [facility] Myelocytes % 2 % LAB HEMATOLOGY METHOD 03/03/2025 3:14 AM EDT [facility] Metamyelocytes % 3 % LAB HEMATOLOGY METHOD 03/03/2025 3:14 AM EDT [facility] Neutrophils % 75 % LAB HEMATOLOGY METHOD 03/03/2025 3:14 AM EDT [facility] Lymphocytes % 14 % LAB HEMATOLOGY METHOD 03/03/2025 3:14 AM EDT [facility] Reactive Lymphocytes % 0 % LAB HEMATOLOGY METHOD 03/03/2025 3:14 AM EDT [facility] Monocytes % 3 % LAB HEMATOLOGY METHOD 03/03/2025 3:14 AM EDT [facility] Eosinophils % 3 % LAB HEMATOLOGY METHOD 03/03/2025 3:14 AM EDT [facility] Basophils % 0 % LAB HEMATOLOGY METHOD 03/03/2025 3:14 AM EDT [facility] Blasts Absolute 0.00 10*3/UL LAB HEMATOLOGY METHOD 03/03/2025 3:14 AM EDT [facility] Promyelocytes Absolute 0.00 10*3/uL LAB HEMATOLOGY METHOD 03/03/2025 3:14 AM EDT [facility] Myelocytes Absolute 0.21 10*3/uL LAB HEMATOLOGY METHOD 03/03/2025 3:14 AM EDT [facility] Metamyelocytes Absolute 0.31 10*3/uL LAB HEMATOLOGY METHOD 03/03/2025 3:14 AM EDT [facility] Neutrophils Absolute 7.72(H) 1.60 - 6.10 10*3/uL LAB HEMATOLOGY METHOD 03/03/2025 3:14 AM EDT [facility] Lymphocytes Absolute 1.44 1.20 - 3.90 10*3/uL LAB HEMATOLOGY METHOD 03/03/2025 3:14 AM EDT [facility] Reactive Lymphocytes Absolute 0.00 10*3/uL LAB HEMATOLOGY METHOD 03/03/2025 3:14 AM EDT [facility] Monocytes Absolute 0.31 0.30 - 0.90 10*3/uL LAB HEMATOLOGY METHOD 03/03/2025 3:14 AM EDT [facility] Eosinophils Absolute 0.31 0.00 - 0.50 10*3/uL LAB HEMATOLOGY METHOD 03/03/2025 3:14 AM EDT [facility] Basophils Absolute 0.00 0.00 - 0.10 10*3/uL LAB HEMATOLOGY METHOD 03/03/2025 3:14 AM EDT [facility] Blood Venous blood specimen / Unknown Venipuncture / Unknown 03/03/2025 2:11 AM EDT 03/03/2025 2:25 AM EDT us Kelsie Carty APRN LAB BLOOD ORDERABLES Final R esult [facility] [address] [place] [address] * (ABNORMAL) Hepatic function panel (03/03/2025 2:11 AM EDT) Conjugated Bilirubin, Plasma <0.2 <=0.3 mg/dL 03/03/2025 2:55 AM EDT [facility] Comment:Hemolyzed, result ma y be falsely decreased. Alkaline Phosphatase, Plasma 99 40 - 115 U/L 03/03/2025 2:55 AM EDT [facility] Total Bilirubin, Plasma 0.3 0.2 - 1.1 mg/dL 03/03/2025 2:55 AM EDT [facility] Albumin, Plasma 3.3(L) 3.5 - 5.2 g/dL 03/03/2025 2:55 AM EDT [facility] Total Protein 7.9 6.3 - 7.9 g/dL 03/03/2025 2:55 AM EDT [facility] ALT, Plasma 36 10 - 50 U/L 03/03/2025 2:55 AM EDT [facility] AST, Plasma 46 10 - 50 U/L 03/03/2025 2:55 AM EDT [facility] Comment:Hemolyzed, result ma y be falsely increased. Blood Venous blood specimen / Unknown Venipuncture / Unknown 03/03/2025 2:11 AM EDT 03/03/2025 2:23 AM EDT us Kelsie A Zacher SURVEILLANCE DUAL RATE OFFICER LAB BLOOD ORDERABLES Final R esult [facility] [address] [place] [address] * Magnesium, Plasma (03/03/2025 2:11 AM EDT) Pathologist [facility] Magnesium, Plasma 2.2 1.9 - 2.4 mg/dL 03/03/2025 2:55 AM EDT [facility] Blood Venous blood specimen / Unknown Venipuncture / Unknown 03/03/2025 2:11 AM EDT 03/03/2025 2:23 AM EDT us Kelsie Moralesriley SURVEILLANCE DUAL RATE OFFICER LAB BLOOD ORDERABLES Final R esult Performing Organization Address City/[facility]/ZIP Co de Phone Number [facility] [address] [place] [address] * CBC and Differential (03/03/2025 2:11 AM EDT) Pathologist [facility] WBC Count 10.29 3.70 - 10.30 10*3/uL LAB HEMATOLOGY METHOD 03/03/2025 3:15 AM EDT [facility] RBC Count 5.48 4.60 - 6.10 10*6/uL LAB HEMATOLOGY METHOD 03/03/2025 3:15 AM EDT [facility] HGB 15.6 13.7 - 17.5 g/dL LAB HEMATOLOGY METHOD 03/03/2025 3:15 AM EDT [facility] HCT 47.6 40.0 - 51.0 % LAB HEMATOLOGY METHOD 03/03/2025 3:15 AM EDT [facility] Platelet Count 329 155 - 369 10*3/uL LAB HEMATOLOGY METHOD 03/03/2025 3:15 AM EDT [facility] MCV 87 79 - 98 fL LAB HEMATOLOGY METHOD 03/03/2025 3:15 AM EDT [facility] MCH 28.5 26.0 - 32.0 pg LAB HEMATOLOGY METHOD 03/03/2025 3:15 AM EDT [facility] MCHC 32.8 30.7 - 35.5 g/dL LAB HEMATOLOGY METHOD 03/03/2025 3:15 AM EDT [facility] RDW 12.9 11.5 - 14.5 % LAB HEMATOLOGY METHOD 03/03/2025 3:15 AM EDT [facility] MPV 9.1 8.8 - 12.5 fL LAB HEMATOLOGY METHOD 03/03/2025 3:15 AM EDT [facility] nRBC 0.0 <=0.0 per 100 WBCs LAB HEMATOLOGY METHOD 03/03/2025 3:15 AM EDT [facility] Differential Type Manual LAB HEMATOLOGY METHOD 03/03/2025 3:15 AM EDT [facility] Blood Venous blood specimen / Unknown Venipuncture / Unknown 03/03/2025 2:11 AM EDT 03/03/2025 2:25 AM EDT Narrative [facility] - 03/03/2025 3:15 AM EDT Therapeutic [...] Immature Granulocytes is no longer being reported. us Kelsie Carty APRN LAB BLOOD ORDERABLES Final R esult [facility] [address] [place] [address] * Blood Culture (Aerobic/Anaerobet Set) (03/03/2025 2:11 AM EDT) Culture No growth at day 5 GEENA 03/08/2025 4:02 AM EDT [facility] Blood Structure of antecubital vein / Unknown Venipuncture / Unknown 03/03/2025 2:11 AM EDT 03/03/2025 3:04 AM EDT Narrative [facility] - 03/08/2025 4:02 AM EDT Low blood volume submitted, results may be compromised us Kelsie Carty APRN LAB MICROBIOLOGY - GENERAL O RDERABLES Final Result Performing Organization Address [facility]/ZIP Co de Phone Number [facility] [address] [place] [address] * Blood Culture (Aerobic/Anaerobet Set) (03/03/2025 2:11 AM EDT) Culture No growth at day 5 GEENA 03/08/2025 4:02 AM EDT [facility] Blood Venous blood specimen / Unknown Venipuncture / Unknown 03/03/2025 2:11 AM EDT 03/03/2025 3:03 AM EDT us Kelsie Carty APRN LAB MICROBIOLOGY - GENERAL O RDERABLES Final Result Performing Organization Address [facility]/ZIP Co de Phone Number [facility] [address] [place] [address] * (ABNORMAL) CBC W/O Differential (03/01/2025 3:55 AM EDT) WBC Count 7.81 3.70 - 10.30 10*3/uL LAB HEMATOLOGY METHOD 03/01/2025 4:12 AM EDT [facility] RBC Count 4.51(L) 4.60 - 6.10 10*6/uL LAB HEMATOLOGY METHOD 03/01/2025 4:12 AM EDT [facility] HGB 12.8(L) 13.7 - 17.5 g/dL LAB HEMATOLOGY METHOD 03/01/2025 4:12 AM EDT [facility] HCT 40.5 40.0 - 51.0 % LAB HEMATOLOGY METHOD 03/01/2025 4:12 AM EDT [facility] Platelet Count 292 155 - 369 10*3/uL LAB HEMATOLOGY METHOD 03/01/2025 4:12 AM EDT [facility] MCV 90 79 - 98 fL LAB HEMATOLOGY METHOD 03/01/2025 4:12 AM EDT [facility] MCH 28.4 26.0 - 32.0 pg LAB HEMATOLOGY METHOD 03/01/2025 4:12 AM EDT [facility] MCHC 31.6 30.7 - 35.5 g/dL LAB HEMATOLOGY METHOD 03/01/2025 4:12 AM EDT [facility] RDW 13.0 11.5 - 14.5 % LAB HEMATOLOGY METHOD 03/01/2025 4:12 AM EDT [facility] MPV 9.5 8.8 - 12.5 fL LAB HEMATOLOGY METHOD 03/01/2025 4:12 AM EDT [facility] nRBC 0.0 <=0.0 per 100 WBCs LAB HEMATOLOGY METHOD 03/01/2025 4:12 AM EDT [facility] Blood Venous blood specimen / Unknown Venipuncture / Unknown 03/01/2025 3:55 AM EDT 03/01/2025 4:04 AM EDT Catalina Cuba MD LAB BLOOD ORDERABLES Final Result [facility] [address] [place] [address] * (ABNORMAL) Basic metabolic panel (03/01/2025 3:55 AM EDT) Glucose, Plasma 94 74 - 99 mg/dL 03/01/2025 4:37 AM EDT [facility] BUN, Plasma 14 7 - 21 mg/dL 03/01/2025 4:37 AM EDT [facility] Creatinine, Plasma 0.92 0.70 - 1.20 mg/dL 03/01/2025 4:37 AM EDT [facility] BUN/Creatinine Ratio 15 03/01/2025 4:37 AM EDT [facility] Sodium, Plasma 140 136 - 145 mmol/L 03/01/2025 4:37 AM EDT [facility] Potassium, Plasma 4.4 3.6 - 4.9 mmol/L 03/01/2025 4:37 AM EDT [facility] Chloride, Plasma 105 97 - 107 mmol/L 03/01/2025 4:37 AM EDT [facility] CO2, Plasma 25 22 - 29 mmol/L 03/01/2025 4:37 AM EDT [facility] Anion Gap 10 6 - 16 mmol/L 03/01/2025 4:37 AM EDT [facility] Total Calcium, Plasma 8.8(L) 8.9 - 10.2 mg/dL 03/01/2025 4:37 AM EDT [facility] eGFRcr 110.6 mL/min/1.7 3m*2 03/01/2025 4:37 AM EDT [facility] Comment:Reported eGFRcr in m L/min/1.73m2 is based the CKD-EPI 2020 equation that does not use a race coefficient. Blood Venous blood specimen / Unknown Venipuncture / Unknown 03/01/2025 3:55 AM EDT 03/01/2025 4:04 AM EDT us Catalina Cuba MD LAB BLOOD ORDERABLES Final Result Performing Organization Address City/[facility]/ZIP Co de Phone Number [facility] [address] [place] [address] * Blood Culture (Aerobic/Anaerobet Set) (03/01/2025 3:45 AM EDT) Culture No growth at day 5 GEENA 03/06/2025 5:01 AM EDT [facility] Blood Venous blood specimen / Unknown Venipuncture / Unknown 03/01/2025 3:45 AM EDT 03/01/2025 4:45 AM EDT us Kelsie Carty APRN LAB MICROBIOLOGY - GENERAL O RDERABLES Final Result [facility] [address] [place] [address] * Blood Culture (Aerobic/Anaerobet Set) (03/01/2025 3:30 AM EDT) Culture No growth at day 5 GEENA 03/06/2025 5:01 AM EDT [facility] Blood Venous blood specimen / Unknown Venipuncture / Unknown 03/01/2025 3:30 AM EDT 03/01/2025 4:45 AM EDT us Kelsie Carty APRN LAB MICROBIOLOGY - GENERAL O RDERABLES Final Result [facility] [address] [place] [address] * Magnesium (02/28/2025 4:03 AM EDT) Magnesium, Plasma 2.2 1.9 - 2.4 mg/dL 02/28/2025 4:37 AM EDT [facility] Blood Venous blood specimen / Unknown Venipuncture / Unknown 02/28/2025 4:03 AM EDT 02/28/2025 4:10 AM EDT us Sherlyn Daniel MD LAB BLOOD ORDERABLES Final Res ult Performing Organization Address City/[facility]/ZIP Co de Phone Number [facility] [address] [place] [address] * (ABNORMAL) CBC W/O Differential (02/28/2025 4:03 AM EDT) WBC Count 7.50 3.70 - 10.30 10*3/uL LAB HEMATOLOGY METHOD 02/28/2025 4:26 AM EDT [facility] RBC Count 4.59(L) 4.60 - 6.10 10*6/uL LAB HEMATOLOGY METHOD 02/28/2025 4:26 AM EDT [facility] HGB 13.1(L) 13.7 - 17.5 g/dL LAB HEMATOLOGY METHOD 02/28/2025 4:26 AM EDT [facility] HCT 40.6 40.0 - 51.0 % LAB HEMATOLOGY METHOD 02/28/2025 4:26 AM EDT [facility] Platelet Count 252 155 - 369 10*3/uL LAB HEMATOLOGY METHOD 02/28/2025 4:26 AM EDT [facility] MCV 89 79 - 98 fL LAB HEMATOLOGY METHOD 02/28/2025 4:26 AM EDT [facility] MCH 28.5 26.0 - 32.0 pg LAB HEMATOLOGY METHOD 02/28/2025 4:26 AM EDT [facility] MCHC 32.3 30.7 - 35.5 g/dL LAB HEMATOLOGY METHOD 02/28/2025 4:26 AM EDT [facility] RDW 13.2 11.5 - 14.5 % LAB HEMATOLOGY METHOD 02/28/2025 4:26 AM EDT [facility] MPV 9.8 8.8 - 12.5 fL LAB HEMATOLOGY METHOD 02/28/2025 4:26 AM EDT [facility] nRBC 0.0 <=0.0 per 100 WBCs LAB HEMATOLOGY METHOD 02/28/2025 4:26 AM EDT [facility] Blood Venous blood specimen / Unknown Venipuncture / Unknown 02/28/2025 4:03 AM EDT 02/28/2025 4:12 AM EDT us Sherlyn Daniel MD LAB BLOOD ORDERABLES Final Res ult [facility] [address] [place] [address] * (ABNORMAL) Basic metabolic panel (02/28/2025 4:03 AM EDT) Glucose, Plasma 110(H) 74 - 99 mg/dL 02/28/2025 4:37 AM EDT [facility] BUN, Plasma 18 7 - 21 mg/dL 02/28/2025 4:37 AM EDT [facility] Creatinine, Plasma 1.15 0.70 - 1.20 mg/dL 02/28/2025 4:37 AM EDT [facility] BUN/Creatinine Ratio 16 02/28/2025 4:37 AM EDT [facility] Sodium, Plasma 136 136 - 145 mmol/L 02/28/2025 4:37 AM EDT [facility] Potassium, Plasma 3.8 3.6 - 4.9 mmol/L 02/28/2025 4:37 AM EDT [facility] Chloride, Plasma 104 97 - 107 mmol/L 02/28/2025 4:37 AM EDT [facility] CO2, Plasma 24 22 - 29 mmol/L 02/28/2025 4:37 AM EDT [facility] Anion Gap 8 6 - 16 mmol/L 02/28/2025 4:37 AM EDT [facility] Total Calcium, Plasma 8.6(L) 8.9 - 10.2 mg/dL 02/28/2025 4:37 AM EDT [facility] eGFRcr 84.6 mL/min/1.7 3m*2 02/28/2025 4:37 AM EDT [facility] Comment:Reported eGFRcr in m L/min/1.73m2 is based the CKD-EPI 2020 equation that does not use a race coefficient. Blood Venous blood specimen / Unknown Venipuncture / Unknown 02/28/2025 4:03 AM EDT 02/28/2025 4:10 AM EDT us Sherlyn Daniel MD LAB BLOOD ORDERABLES Final Res ult [facility] [address] [place] [address] * PERIPHERAL IV (SMARTFORM LINK) (02/27/2025 6:13 [...] ADULT TRANSTHORACIC COMPLETE (02/27/2025 10:50 AM EDT) [facility] Signature BSA 2.45 m2 HERNESTO ISCV Height 188.0 HERNE[facility]O ISCV Weight 119.8 HERNE[facility]O ISCV LVIDd 46 mm HERNE[facility]O ISCV LVIDs 31 mm HERNESTO ISCV IVSd 9 mm HERNE[facility]O ISCV LVPWd 9 mm HERNESTO ISCV LV MASS(C)D 137 g HERNESTO ISCV UK CV ECHO LV MASS INDEX 56 g/m2 [...] regurgitation. Tricuspid Valve: The leaflets appear thickened. 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 There appears to be restricted [...] is no recent study available for direct [id number]-[id number] comparison. Left Ventricle Based on the linear [...] stenosis. Tricuspid Valve The leaflets appear thickened. 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 There appears to be restricted [...] is no recent study available for direct rrru-od-mmed comparison. Wall Scoring Baseline Score Index: 1.00 [...] level. Than... (02/27/2025 10:46 AM EDT) Pathologist [facility] Vancomycin, Peak, Plasma 25.5 20.0 - 40.0 ug/mL 02/27/2025 11:21 AM EDT [facility] Blood Venous blood specimen / Unknown Venipuncture / Unknown 02/27/2025 10:46 AM EDT 02/27/2025 10:52 AM EDT Narrative [facility] - 02/27/2025 11:21 AM EDT Therapeutic Peak level: 20-40ug/mL Supra-therapeutic Peak level: >40 ug/mL us Alejandro AARON LAB BLOOD ORDERABLES Final R esult [facility] [address] [place] [address] * (ABNORMAL) Lipid panel (02/27/2025 4:33 AM EDT) Cholesterol, Plasma 108 <200 mg/dL 02/27/2025 5:14 AM EDT [facility] Comment: Cholesterol Reference Range (age >17 years): Desirable <200 mg/dL Borderline 200 to 239 mg/dL Undesirable >239 mg/dL HDL 28(L) >=40 mg/dL 02/27/2025 5:14 AM EDT [facility] Comment: HDL Cholesterol Reference Ranges (age >17 years): Female, acceptable > or = 50 mg/dL Male, acceptable > or = 40 mg/dL Triglycerides, Plasma 94 <150 mg/dL 02/27/2025 5:14 AM EDT [facility] Comment: Triglyceride Reference Range (age >17 years): Desirable: <150 mg/dL Borderline high: 150 to 199 mg/dL High: 200 to 499 mg/dL Very high: >499 mg/dL Increased risk of pancreatitis: >1000 mg/dL Cholesterol/HDL Ratio 4 02/27/2025 5:14 AM EDT [facility] LDL, Calculated 62 <100 mg/dL 5:14 AM EDT [facility] Comment: LDL Cholesterol Reference Range (age [...] 12 hours? No 02/27/2025 5:14 AM EDT [facility] Blood Venous blood specimen / Unknown Venipuncture / Unknown 02/27/2025 4:33 AM EDT 02/27/2025 4:42 AM EDT us Alejandro AARON LAB BLOOD ORDERABLES Final R esult [facility] [address] [place] [address] * Hemoglobin A1c (02/27/2025 4:33 AM EDT) Hemoglobin A1c 5.4 <5.7 % 02/27/2025 7:06 AM EDT [facility] Blood Venous blood specimen / Unknown Venipuncture / Unknown 02/27/2025 4:33 AM EDT 02/27/2025 4:45 AM EDT Narrative [facility] - 02/27/2025 7:06 AM EDT HA1C Interpretive Data: Diagnosis of Diabetes: Diabetic > or = 6.5% Pre-diabetic 5.7 to 6.4% Non-diabetic < or = 5.6% Glycemic Targets for Type I and Type II Diabetics: Non- Adults <7.0% Adults <6.0% Children and Adolescents <7.5% Source: [place] [employer]. Standards of medical care in diabetes,2017. Diabetes Care.2017:40 (suppl 1):S1-S135. us Alejandro AARON LAB BLOOD ORDERABLES Final R esult [facility] [address] [place] [address] * (ABNORMAL) Basic metabolic panel (02/27/2025 4:33 AM EDT) Glucose, Plasma 128(H) 74 - 99 mg/dL 02/27/2025 5:14 AM EDT [facility] BUN, Plasma 18 7 - 21 mg/dL 02/27/2025 5:14 AM EDT [facility] Creatinine, Plasma 1.01 0.70 - 1.20 mg/dL 02/27/2025 5:14 AM EDT [facility] BUN/Creatinine Ratio 18 02/27/2025 5:14 AM EDT [facility] Sodium, Plasma 135(L) 136 - 145 mmol/L 02/27/2025 5:14 AM EDT [facility] Potassium, Plasma 4.6 3.6 - 4.9 mmol/L 02/27/2025 5:14 AM EDT [facility] Chloride, Plasma 101 97 - 107 mmol/L 02/27/2025 5:14 AM EDT [facility] CO2, Plasma 24 22 - 29 mmol/L 02/27/2025 5:14 AM EDT [facility] Anion Gap 10 6 - 16 mmol/L 02/27/2025 5:14 AM EDT [facility] Total Calcium, Plasma 9.2 8.9 - 10.2 mg/dL 02/27/2025 5:14 AM EDT [facility] eGFRcr 98.8 mL/min/1.7 3m*2 02/27/2025 5:14 AM EDT [facility] Comment:Reported eGFRcr in m L/min/1.73m2 is based the CKD-EPI 2020 equation that does not use a race coefficient. Blood Venous blood specimen / Unknown Venipuncture / Unknown 02/27/2025 4:33 AM EDT 02/27/2025 4:42 AM EDT us Sherlyn Daniel MD LAB BLOOD ORDERABLES Final Res ult [facility] [address] [place] [address] * (ABNORMAL) CBC W/O Differential (02/27/2025 4:33 AM EDT) WBC Count 9.62 3.70 - 10.30 10*3/uL LAB HEMATOLOGY METHOD 02/27/2025 4:53 AM EDT [facility] RBC Count 4.58(L) 4.60 - 6.10 10*6/uL LAB HEMATOLOGY METHOD 02/27/2025 4:53 AM EDT [facility] HGB 13.1(L) 13.7 - 17.5 g/dL LAB HEMATOLOGY METHOD 02/27/2025 4:53 AM EDT [facility] HCT 40.8 40.0 - 51.0 % LAB HEMATOLOGY METHOD 02/27/2025 4:53 AM EDT [facility] Platelet Count 247 155 - 369 10*3/uL LAB HEMATOLOGY METHOD 02/27/2025 4:53 AM EDT [facility] MCV 89 79 - 98 fL LAB HEMATOLOGY METHOD 02/27/2025 4:53 AM EDT [facility] MCH 28.6 26.0 - 32.0 pg LAB HEMATOLOGY METHOD 02/27/2025 4:53 AM EDT [facility] MCHC 32.1 30.7 - 35.5 g/dL LAB HEMATOLOGY METHOD 02/27/2025 4:53 AM EDT [facility] RDW 13.1 11.5 - 14.5 % LAB HEMATOLOGY METHOD 02/27/2025 4:53 AM EDT [facility] MPV 10.4 8.8 - 12.5 fL LAB HEMATOLOGY METHOD 02/27/2025 4:53 AM EDT [facility] nRBC 0.0 <=0.0 per 100 WBCs LAB HEMATOLOGY METHOD 02/27/2025 4:53 AM EDT [facility] Blood Venous blood specimen / Unknown Venipuncture / Unknown 02/27/2025 4:33 AM EDT 02/27/2025 4:45 AM EDT Sherlyn Daniel MD LAB BLOOD ORDERABLES Final Res ult Performing Organization Address [facility] [place] [address] * Blood Culture (Aerobic/Anaerobet Set) (02/27/2025 4:30 AM EDT) Culture No growth at day 5 GEENA 03/04/2025 5:01 AM EDT [facility] Blood Venous blood specimen / Unknown Venipuncture / Unknown 02/27/2025 4:30 AM EDT 02/27/2025 4:47 AM EDT Sherman Gonzáles MD LAB MICROBIOLOGY - GENERAL O RDERABLES Final Result Performing Organization Address [facility] [place] [address] * Blood Culture (Aerobic/Anaerobet Set) (02/27/2025 4:00 AM EDT) Culture No growth at day 5 GEENA 03/04/2025 5:01 AM EDT [facility] Blood Venous blood specimen / Unknown Venipuncture / Unknown 02/27/2025 4:00 AM EDT 02/27/2025 4:47 AM EDT Sherman Gonzáles MD LAB MICROBIOLOGY - GENERAL O RDERABLES Final Result Performing Organization Address [facility] [place] [address] * XR Chest 1 View (02/27/2025 2:37 [...] signing this report, I, the attending physician, [email or web address] I have personally reviewed the images/data for the aboveexamination(s) and agree with the final edited report. Drafted by EILEEN Alan on 02/27/2025 8:33 AM Final report signed by Cj Paulino MD on 02/27/2025 8:56 AM Sherlyn Daniel MD IMG XR PROCEDURES Final Result * (ABNORMAL) Routine Culture and Gram Stain (02/26/2025 10:10 AM EDT) Culture Light Growth 03/01/2025 3:23 PM EDT [facility] Culture Staphylococcus aureus(A) GEENA 03/01/2025 3:23 PM EDT [facility] Foreign Body Bone structure of sternum [...] ORD ERABLES Final Result Performing Organization Address [facility]/[place] [address] * Anaerobic Culture (02/26/2025 10:10 AM EDT) Culture No anaerobes isolated 03/03/2025 5:50 AM EDT [facility] Foreign Body Bone structure of sternum / Unknown 02/26/2025 10:10 AM EDT 02/26/2025 11:21 AM EDT Comment:Pre-op diagnosis: Chest wall abscess [L02.213] Sherlyn Daniel MD LAB MICROBIOLOGY - GENERAL ORD ERABLES Final Result Performing Organization Address [facility] [place] [address] * (ABNORMAL) POCT arterial blood gas gem (02/26/2025 9:42 AM EDT) pH, Arterial 7.42 7.35 - 7.45 02/26/2025 9:44 AM EDT [facility] pCO2, Arterial 41 32 - 45 mm Hg 02/26/2025 9:44 AM EDT [facility] pO2, Arterial 105 83 - 108 mm Hg 02/26/2025 9:44 AM EDT [facility] SO2, Arterial 99(H) 94 - 98 % 02/26/2025 9:44 AM EDT [facility] Base Excess, Arterial 1.9 -2 - 3 mmol/L 02/26/2025 9:44 AM EDT [facility] HCO3, Arterial 26.6(H) 22 - 26 mmol/L 02/26/2025 9:44 AM EDT [facility] Total Hemoglobin, Arterial, Whole Blood 13.6(L) 13.7 - 17.5 g/dL 02/26/2025 9:44 AM EDT [facility] Hematocrit, Arterial 41.0 40 - 51.0 % 02/26/2025 9:44 AM EDT [facility] Sodium, Arterial 135(L) 136 - 145 mmol/L 02/26/2025 9:44 AM EDT [facility] Potassium, Arterial 4.1 3.6 - 4.9 mmol/L 02/26/2025 9:44 AM EDT [facility] Chloride, Whole Blood 104 97 - 107 mmol/L 02/26/2025 9:44 AM EDT [facility] Glucose, Arterial 106(H) 74 - 99 mg/dL 02/26/2025 9:44 AM T [facility] Ionized Calcium, Arterial 4.7 4.6 - 5.1 mg/dL 02/26/2025 9:44 AM EDT [facility] Lactate, Arterial 0.6 0.5 - 1.6 mmol/L 02/26/2025 9:44 AM EDT [facility] Body Temperature 37.0 Celsius 02/26/2025 9:44 AM EDT [facility] pH, Temp Corrected, Arterial 7.42 7.35 - 7.45 02/26/2025 9:44 AM EDT [facility] pCO2, Temp Corrected, Arterial 41 32 - 45 mm Hg 02/26/2025 9:44 AM EDT [facility] pO2, Temp Corrected, Arterial 105 83 - 108 mm Hg 02/26/2025 9:44 AM EDT [facility] Drill Runner ID Carina Jordan 02/26/2025 9:44 AM EDT [facility] Blood, Arterial Whole blood specimen / Unknown 02/26/2025 9:42 AM EDT 02/26/2025 9:44 AM EDT us Sherlyn Daniel MD LAB POINT OF CARE TE ST DOCKED DEVICE UNSOLICITED RESULTS Final Result [facility] [address] [place] [address] * (ABNORMAL) Abscess Culture and Gram Stain (02/26/2025 9:34 AM EDT) Culture Light Growth 03/01/2025 3:22 PM EDT [facility] Culture Staphylococcus aureus(A) GEENA 03/01/2025 3:22 PM EDT [facility] Comment:The organism value f or this result has been updated. These results have been appended to the previously preliminary verified report. Gram Stain Result Few Polymorphonuclear leukocytes(A) 03/01/2025 3:22 PM EDT [facility] Gram Stain Result Few Gram positive cocci in pairs(A) 03/01/2025 3:22 PM EDT [facility] Swab Bone structure of sternum / [...] MICROBIOLOGY - GENERAL ORD ERABLES Final Result [facility] [address] [place] [address] * Fungal Culture, Routine (02/26/2025 9:34 AM EDT) Culture No Fungal Growth at 1 Week 03/06/2025 9:03 AM EDT [facility] Swab Bone structure of sternum / Unknown 02/26/2025 9:34 AM EDT 02/26/2025 11:01 AM EDT Comment:Pre-op diagnosis: Chest wall abscess [L02.213] Sherlyn Daniel MD LAB MICROBIOLOGY - GENERAL ORD ERABLES Final Result Performing Organization Address City/[facility]/ZIP Co de Phone Number [facility] [address] [place] [address] * Anaerobic Culture (02/26/2025 9:34 AM EDT) Culture No anaerobes isolated 03/03/2025 5:50 AM EDT [facility] Swab Bone structure of sternum / Unknown 02/26/2025 9:34 AM EDT 02/26/2025 11:01 AM EDT Comment:Pre-op diagnosis: Chest wall abscess [L02.213] Sherlyn Daniel MD LAB MICROBIOLOGY - GENERAL ORD ERABLES Final Result Performing Organization Address City/[facility]/ZIP Co de Phone Number [facility] [address] [place] [address] * Type and screen (02/25/2025 4:54 PM [...] Co de Phone Number [facility] [address] [place] [address], * (ABNORMAL) Wound Culture and Gram Stain (02/25/2025 4:46 AM EDT) CULTURE READING WOUND Moderate Growth 02/27/2025 3:19 PM EDT [facility] CULTURE READING WOUND Staphylococcus aureus(A) GEENA 02/27/2025 3:19 PM EDT [facility] Comment:The organism value f or this result has been updated. These results have been appended to the previously preliminary verified report. Gram Stain Result Numerous Polymorphonuclear leukocytes(A) 02/27/2025 3:19 PM EDT [facility] Gram Stain Result Numerous Gram positive cocci in pairs(A) 02/27/2025 3:19 PM EDT [facility] Gram Stain Result Numerous Gram positive cocci in clusters(A) 02/27/2025 3:19 PM EDT [facility] Swab Skin structure / Unknown Non-blood [...] MICROBIOLOGY - GENERAL ORD ERABLES Final Result [facility] [address] [place] [address] * (ABNORMAL) Bacterial ID Gram Positive (02/25/2025 3:18 AM EDT) Staphylococcus Result Detected( A) Not Detected 02/26/2025 4:46 AM EDT [facility] Comment:Assess if contaminan t or clinically relevant pathogen. Consider clinical stability and immune status of patient. Blood Venous blood specimen / Unknown Venipuncture / Unknown 02/25/2025 3:18 AM EDT 02/25/2025 4:04 AM EDT Narrative [facility] - 02/26/2025 4:46 AM EDT Analytes include: Bacillus cereus group, Bacillus subtilis group, Corynebacterium, Cutibacterium acnes (P acnes), Enterococcus, Enterococcus faecalis, Enterococcus faecium, Lactobacillus, Listeria, Listeria monocytogenes, Micrococcus, Staphylococcus, Staphylococcus aureus, Staphylococcus epidermidis, Stapylcoccus lugdunesis, Streptococcus, Streptococcus agalactiae, Streptococcus anginosus group, Streptococcus pneumoniae, Streptococcus pyogenes, Goode gram negative target, Goode Vianye target and mecA, mecC, Leon and vanB [...] MICROBIOLOGY - GENERAL ORD ERABLES Final Result [facility] [address] [place] [address] * Hepatitis C Virus (HCV) Quantitative PCR - ED (02/25/2025 3:18 AM EDT) Hepatitis C Virus (HCV) Quantitative Interpretation Not Detected Not Detected. 02/27/2025 2:45 PM EDT [facility] Blood Venous blood specimen / Unknown Venipuncture / Unknown 02/25/2025 3:18 AM EDT 02/25/2025 3:53 AM EDT Narrative [facility] - 02/27/2025 2:45 PM EDT The [...] FDA approved for clinical use. us Franco uGillory MD LAB BLOOD ORDERABLES Final Res ult Performing Organization Address [facility] [place] [address] * ED HIV 1/2 Antibody/Antigen Screen w/Reflex to HIV 1/2 Differentiation (02/25/2025 3:18 AM EDT) HIV 1 & 2 Antibody/Antigen Screen Non Reactive Non Reactive 02/25/2025 4:35 AM EDT [facility] Comment:Screening for HIV 1 & 2 antibodies, and P24 antigen is NONREACTIVE. No confirmatory testing is required. Blood Venous blood specimen / Unknown Venipuncture / Unknown 02/25/2025 3:18 AM EDT 02/25/2025 3:53 AM EDT us Franco Guillory MD LAB BLOOD ORDERABLES Final Res ult Performing Organization Address [facility] Co de Phone Number [facility] [address] [place] [address] * (ABNORMAL) Hepatitis C Antibody - ED (02/25/2025 3:18 AM EDT) Hepatitis C Antibody Positive(A ) Negative 02/25/2025 4:40 AM EDT [facility] Blood Venous blood specimen / Unknown Venipuncture / Unknown 02/25/2025 3:18 AM EDT 02/25/2025 3:53 AM EDT us Franco Guillory MD LAB BLOOD ORDERABLES Final Res ult [facility] [address] [place] [address] * (ABNORMAL) Blood Culture (Aerobic/Anaerobet Set) (02/25/2025 3:18 AM EDT) Culture Staphylococcus aureus(AA) GEENA 02/27/2025 1:21 PM EDT [facility] Comment: Isolated from aerobic and anaerobic culture bottles. The organism value for this result has been updated. These results have been appended to the previously preliminary verified report. Culture Staphylococcus coagulase negative(AA) GEENA 02/27/2025 1:21 PM EDT [facility] Comment: Isolated from aerobic and anaerobic culture bottles. Isolated from one bottle only in a 24-hour period. If workup required, contact bacteriology at [phone]. This organism may be associated with a contaminated culture. The organism value for this result has been updated. These results have been appended to the previously preliminary verified report. Gram Stain Gram positive cocci in clusters(AA) 02/27/2025 1:21 PM EDT [facility] Comment: Organism seen in Anaerobic Blood Culture Bottle. Positivity Date and Time to Detection: 02/25/2025. at 00 Day(s) and 16 Hour(s). This is an appended report. These results have been appended to a previously preliminary verified report. Gram Stain Gram positive cocci in clusters(AA) 02/27/2025 1:21 PM EDT [facility] Comment: Organism seen in Aerobic Blood Culture Bottle. Positivity Date and Time to Detection: 02/25/2025 at 00 Day(s) and 16 Hour(s). This is an appended report. These results have been appended to a previously preliminary verified report. Blood Venous blood specimen / Unknown Venipuncture / Unknown 02/25/2025 3:18 AM EDT 02/25/2025 4:04 AM EDT Narrative [facility] - 02/27/2025 1:21 PM EDT Anaerobic blood culture entered in duplicate. Organism Antibiotic Method Susceptibility Staphylococcus aureus Daptomycin GEENA <=1 ug/ml: Susceptible Staphylococcus aureus Linezolid GEENA <=1 ug/ml: Susceptible Staphylococcus aureus Oxacillin GEENA <=0.25 ug/ml: Susceptible Staphylococcus aureus Vancomycin GEENA 1 ug/ml: Susceptible Franco Guillory MD LAB MICROBIOLOGY - GENERAL ORD ERABLES Final Result [facility] [address] [place] [address] * (ABNORMAL) Blood Culture (Aerobic/Anaerobet Set) (02/25/2025 3:18 AM EDT) Culture Staphylococcus aureus(AA) 03/03/2025 12:34 PM EDT [facility] Comment: For susceptibility results refer to: - [id number] Isolated from aerobic and anaerobic culture bottles. The organism value for this result has been updated. These results have been appended to the previously preliminary verified report. Gram Stain Gram positive cocci in clusters(AA) 03/03/2025 12:34 PM EDT [facility] Comment: Organism seen in Anaerobic Blood Culture Bottle. Positivity Date and Time to Detection: 02/26/2025. at 00 Day(s) and 19 Hour(s). This is an appended report. These results have been appended to a previously preliminary verified report. Gram Stain Gram positive cocci in clusters(AA) 03/03/2025 12:34 PM EDT [facility] Comment: Organism seen in Aerobic Blood Culture Bottle. Positivity Date and Time to Detection: 02/26/2025 at 01 Day(s) and 04 Hour(s). This is an appended report. These results have been appended to a previously preliminary verified report. Blood Venous blood specimen / Unknown Venipuncture / Unknown 02/25/2025 3:18 AM EDT 02/25/2025 4:04 AM EDT us Franco Guillory MD LAB MICROBIOLOGY - GENERAL ORD ERABLES Final Result [facility] [address] [place] [address] * (ABNORMAL) Sed rate, automated (02/25/2025 3:18 AM EDT) Sedimentation Rate 65(H) <15 mm/hr 2024 3:54 AM EDT [facility] Blood Venous blood specimen / Unknown Venipuncture / Unknown 02/25/2025 3:18 AM EDT 02/25/2025 3:40 AM EDT Franco Guillory MD LAB BLOOD ORDERABLES Final Res ult Performing Organization Address [facility] Co de Phone Number [facility] [address] [place] [address] * (ABNORMAL) C-Reactive protein (02/25/2025 3:18 AM EDT) CRP, Plasma 282.5(H) <=8.0 mg/L 02/25/2025 4:23 AM EDT [facility] Blood Venous blood specimen / Unknown Venipuncture / Unknown 02/25/2025 3:18 AM EDT 02/25/2025 3:53 AM EDT Narrative [facility] - 02/25/2025 4:23 AM EDT This CRP test is appropriate for assessment of infection, systemic inflammation and/or tissue injury. To assess cardiovascular disease risk order high sensitivity CRP (CRPH). Franco Guillory MD LAB BLOOD ORDERABLES Final Res ult Performing Organization Address [facility] de Phone Number [facility] [address] [place] [address] * Phosphorus (02/25/2025 3:18 AM EDT) Phosphorus, Plasma 2.7 2.5 - 4.5 mg/dL 02/25/2025 4:23 AM EDT [facility] Blood Venous blood specimen / Unknown Venipuncture / Unknown 02/25/2025 3:18 AM EDT 02/25/2025 3:53 AM EDT Franco Guillory MD LAB BLOOD ORDERABLES Final Res ult Performing Organization Address City/[facility]/ZIP Co de Phone Number [facility] [address] [place] [address] * Magnesium (02/25/2025 3:18 AM EDT) Magnesium, Plasma 2.2 1.9 - 2.4 mg/dL 02/25/2025 4:23 AM EDT [facility] Blood Venous blood specimen / Unknown Venipuncture / Unknown 02/25/2025 3:18 AM EDT 02/25/2025 3:53 AM EDT us Franco Guillory MD LAB BLOOD ORDERABLES Final Res ult [facility] [address] [place] [address] * (ABNORMAL) CMP (02/25/2025 3:18 AM EDT) Glucose, Plasma 132(H) 74 - 99 mg/dL 02/25/2025 4:23 AM EDT [facility] BUN, Plasma 13 7 - 21 mg/dL 02/25/2025 4:23 AM EDT [facility] Creatinine, Plasma 0.86 0.70 - 1.20 mg/dL 02/25/2025 4:23 AM EDT [facility] BUN/Creatinine Ratio 15 02/25/2025 4:23 AM EDT [facility] Sodium, Plasma 137 136 - 145 mmol/L 02/25/2025 4:23 AM EDT [facility] Potassium, Plasma 3.7 3.6 - 4.9 mmol/L 02/25/2025 4:23 AM EDT [facility] Chloride, Plasma 101 97 - 107 mmol/L 02/25/2025 4:23 AM EDT [facility] CO2, Plasma 24 22 - 29 mmol/L 02/25/2025 4:23 AM EDT [facility] Anion Gap 12 6 - 16 mmol/L 02/25/2025 4:23 AM EDT [facility] Total Calcium, Plasma 9.2 8.9 - 10.2 mg/dL 02/25/2025 4:23 AM EDT [facility] Total Protein 7.4 6.3 - 7.9 g/dL 02/25/2025 4:23 AM EDT [facility] Albumin, Plasma 3.5 3.5 - 5.2 g/dL 02/25/2025 4:23 AM EDT [facility] AST, Plasma 20 10 - 50 U/L 02/25/2025 4:23 AM EDT [facility] Comment:Hemolyzed, result ma y be falsely increased. ALT, Plasma 16 10 - 50 U/L 02/25/2025 4:23 AM EDT [facility] Alkaline Phosphatase, Plasma 100 40 - 115 U/L 02/25/2025 4:23 AM EDT [facility] Total Bilirubin, Plasma 0.7 0.2 - 1.1 mg/dL 02/25/2025 4:23 AM EDT [facility] eGFRcr 115.1 mL/min/1.7 3m*2 02/25/2025 4:23 AM EDT [facility] Comment:Reported eGFRcr in m L/min/1.73m2 is based the CKD-EPI 2020 equation that does not use a race coefficient. Blood Venous blood specimen / Unknown Venipuncture / Unknown 02/25/2025 3:18 AM EDT 02/25/2025 3:53 AM EDT Franco Guillory MD LAB BLOOD ORDERABLES Final Res ult [facility] [address] [place] [address] * (ABNORMAL) CBC w/diff (02/25/2025 3:18 AM EDT) WBC Count 9.74 3.70 - 10.30 10*3/uL LAB HEMATOLOGY METHOD 02/25/2025 3:42 AM EDT [facility] RBC Count 5.34 4.60 - 6.10 10*6/uL LAB HEMATOLOGY METHOD 02/25/2025 3:42 AM EDT [facility] HGB 15.5 13.7 - 17.5 g/dL LAB HEMATOLOGY METHOD 02/25/2025 3:42 AM EDT [facility] HCT 45.4 40.0 - 51.0 % LAB HEMATOLOGY METHOD 02/25/2025 3:42 AM EDT [facility] Platelet Count 167 155 - 369 10*3/uL LAB HEMATOLOGY METHOD 02/25/2025 3:42 AM EDT [facility] MCV 85 79 - 98 fL LAB HEMATOLOGY METHOD 02/25/2025 3:42 AM EDT [facility] MCH 29.0 26.0 - 32.0 pg LAB HEMATOLOGY METHOD 02/25/2025 3:42 AM EDT [facility] MCHC 34.1 30.7 - 35.5 g/dL LAB HEMATOLOGY METHOD 02/25/2025 3:42 AM EDT [facility] RDW 13.2 11.5 - 14.5 % LAB HEMATOLOGY METHOD 02/25/2025 3:42 AM EDT [facility] MPV 10.0 8.8 - 12.5 fL LAB HEMATOLOGY METHOD 02/25/2025 3:42 AM EDT [facility] nRBC 0.0 <=0.0 per 100 WBCs LAB HEMATOLOGY METHOD 02/25/2025 3:42 AM EDT [facility] Differential Type Automated LAB HEMATOLOGY METHOD 02/25/2025 3:42 AM EDT [facility] Neutrophils % 80 % LAB HEMATOLOGY METHOD 02/25/2025 3:42 AM EDT [facility] Lymphocytes % 10 % LAB HEMATOLOGY METHOD 02/25/2025 3:42 AM EDT [facility] Monocytes % 8 % LAB HEMATOLOGY METHOD 02/25/2025 3:42 AM EDT [facility] Eosinophils % 1 % LAB HEMATOLOGY METHOD 02/25/2025 3:42 AM EDT [facility] Basophils % 0 % LAB HEMATOLOGY METHOD 02/25/2025 3:42 AM EDT [facility] Immature Granulocytes % 1 % LAB HEMATOLOGY METHOD 02/25/2025 3:42 AM EDT [facility] Neutrophils Absolute 7.79(H) 1.60 - 6.10 10*3/uL LAB HEMATOLOGY METHOD 02/25/2025 3:42 AM EDT [facility] Lymphocytes Absolute 1.00(L) 1.20 - 3.90 10*3/uL LAB HEMATOLOGY METHOD 02/25/2025 3:42 AM EDT [facility] Monocytes Absolute 0.76 0.30 - 0.90 10*3/uL LAB HEMATOLOGY METHOD 02/25/2025 3:42 AM EDT [facility] Eosinophils Absolute 0.11 0.00 - 0.50 10*3/uL LAB HEMATOLOGY METHOD 02/25/2025 3:42 AM EDT [facility] Basophils Absolute 0.02 0.00 - 0.10 10*3/uL LAB HEMATOLOGY METHOD 02/25/2025 3:42 AM EDT [facility] Immature Granulocytes Absolute 0.06 0.00 - 0.06 10*3/uL LAB HEMATOLOGY METHOD 02/25/2025 3:42 AM EDT [facility] Blood Venous blood specimen / Unknown Venipuncture / Unknown 02/25/2025 3:18 AM EDT 02/25/2025 3:40 AM EDT Narrative [facility] - 02/25/2025 3:42 AM EDT Therapeutic decision making should be based on absolute values, rather than percentages. us Franco Guillory MD LAB BLOOD ORDERABLES Final Res ult [facility] [address] [place] [address] documented in this encounter Visit Diagnoses Diagnosis [...] Bag 02/28/2025 3:42 AM EDT 4.5 g 36 .7 mL/hr New Bag 02/27/2025 9:45 PM EDT [...] RN)2118 (Given - Provider: Gulshan Toney RN) 08 (Given - Provider: Gallo Bhatt RN) ceFAZolin (Ancef) injection 2 g 2 g, Intravenous, Every 8 hours, First dose on Wed02/28/25 at 1000, Until Discontinued, Routine 025 (Given - Provider: Yared Cartwright RN)0925 (Given [...] Reason: Patient/family refused)2142 (Not Given - Provider: Mrasha Miranda RN - Reason: Patient/family refused) 08 [...] RN) 0624 (Given - Provider: Marsha Miranda RN)1411 (Given - Provider: Gallo Bhatt RN)211 (Given [...] Mayelin Dorsey RN)2030 (Medication Applied - Provider: Masrha Miranda RN) 0836 (Medication Removed - Provider: [...] 0425, Until Discontinued, Routine 0334 (Return to [facility] - Provider: Yared Cartwright RN)1814 (Given - [...] Provider: Gulshan Toney RN)1006 (Given - Provider: Glalo Bhatt RN) simethicone (Mylicon) chewable tablet 80 mg 80 mg, Oral, 4 times daily PRN, Starting on 02/25/25 at 0419, Until e 03/06/25 at 1535, Routine, flatulence sodium chloride [...] needed, Starting on 02/25/25 at 0419, Until Wed03/06/25 at 1535, Routine, line care Group 2: [...] documented as of this encounter Care Teams Sheep Sorter Relationship Specialty Start Date End Date Pcp, [place] [address] PCP - General Family Medicine 02/25/25 Francisco Javier Eller MD [address] [place], [place] [id number] [employer] 03/02/25 documented as of this encounter
--- OUTSIDE RECORDS SUMMARY | 2025-02-26 08:43 | XMS_ITS | Encounter Summary ---
Author Organization Healthcare Address [address] 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 at [facility], Sherlyn Hunt MD [address] [place] [address] Phone: tel: fax: [facility] Emergency Department [address] [place] [address] Phone: tel: Referral ID Status Reason Start Date Expiration Date Visits Re quested Visits Authorized [id number] 1 1 Encounter Details Date Type Department Care Team (Late st Contact Info) Description 02/26/2025 8:43 AM EDT Anesthesia Event [facility] OPERATING ROOM [address] [place] [address] Praneeth Jasmine MD [address] [place] [id number] Jeremy Franco MD [address] [place] [address] Anesthesia Record Procedure Summary Procedure [...] any time in the past 12 m [facility], were you homeless or living in a long-term (including now)? No 02/27/2025 Utilities Answer Date Recorded In the past 12 months has th e [employer], gas, oil, or water [employer] threatened to shut off services in your [...] portions of the procedure(s) and [facility]. See resident [...] portions of the procedure(s) and immediately available [facility] services the entire duration. See resident note for details. * Anesthesia Preprocedure Evaluation - Praneeth Jasmine MD - 02/26/2025 7:02 AM EDT Patient: Alex Amaya Procedure Information Date/Time: 02/26/25 0900 Procedure: CHEST WASHOUT, REMOVAL OF STERNAL PLATES Location: [facility] OR Diane / YAMIL OR Surgeons: Sherlyn [...] Description 03/26/2025 11:40 AM EDT Office Visit [facility] Cardiothoracic [address], [address] [place] [address] Sherlyn Cisse MD [address] [place] [address] 03/27/2025 9:00 AM EDT Office Visit [address] [address] Keny Chin MD [address] [place] [address] [address] [place] [address] 04/10/2025 9:00 AM EDT Office Visit [address] [address] Leela Chin MD [address] [place] [address] [address] [place] [address] documented as of this encounter Procedures Procedure Name Priority Date/Time Associated Diagnosis Comments ANESTHESIA ARTERIAL LINE PLACEMENT Routine 02/26/2025 9:33 AM EDT PB ANESTHESIA PLACEHOLDER Routine 02/26/2025 8:53 AM EDT AK AN ELECTIVE ENDOTRACHEAL AIRWAY Routine 02/26/2025 8:53 [...] MD ANESTHESIA ORDERABLES Final Res ult * [place] AN ELECTIVE ENDOTRACHEAL AIRWAY, PB ANESTHESIA PLACEHOLDER [...] documented as of this encounter Care Teams Deicer Repairer Relationship Specialty Start Date End Date Pcp, [place] [address] PCP - General Family Medicine 02/25/25 documented as of this encounter
--- OUTSIDE RECORDS SUMMARY | 2025-02-26 09:00 | XMS_ITS | Encounter Summary ---
Author Organization Healthcare Address [address] [place] [address] Care Team Providers Care Dedicated Regional Driver Name Role Phone Pcp, No Primary Care Provider Unavailabl e Reason for Visit * Reason Comments Wound Check * Auth/Cert (Routine) Specialty Diagnoses / Procedures Referred By Contac t Referred To Contact Diagnoses Sternal wound dehiscence, initial encounter chest abscess at surgical scar near mediastinum with hx cabg 2021 at [facility] Sherlyn Daniel MD [address] [address] Phone: tel: fax: [facility] A Emergency Department [address] [place] [address] Phone: tel: Referral ID Status Reason Start Date Expiration Date Visits Re quested Visits Authorized [id number] 1 1 Encounter Details Date Type Department Care Team (Late st Contact Info) Description 02/26/2025 9:00 AM EDT - 02/26/2025 11:30 AM EDT Surgery [facility] OPERATING ROOM [address] [place] [phone] Sherlyn Daniel MD [address] [address] CHEST WASHOUT, REMOVAL OF STERNAL PLATES [...] any time in the past 12 m [facility], were you homeless or living in a senior care (including now)? No 02/27/2025 Utilities Answer Date Recorded In the past 12 months has th e electric, VIAP, oil, or water [employer] threatened to shut off services in your [...] Behavior (Lifetime) No 8:00 AM EDT Debora Arauz RN documented as of this encounter Medications [...] 1 each 5 04/10/20 25 HYDROcodone-acetami nophen ([place]) 5-325 MG tablet Take 1 tablet by [...] MD PCP name and Address: Pcp, [place] [address] [facility] [address] Referring provider name and address: Stephen Tello, SONYA [address] [place] [address] [place], [place] Chief Concern, Brief History of Present Illness, and Hospital Course Alex Amaya is a 34 y.o. male with history of IV drug use on suboxone, infectious endocarditisrequiring tricuspid valve repair in [place] in 2019. He states that he had to have several incision and drainages of the superior aspect of his sternotomy scar that occurred in the medical facility at the senior living that he was in due to drainage [...] and got worse so he went to [facility] where he was found to have [...] medications were sent to [facility] - [place], [place] - [address], [facility] [address] ceFAZolin injection These medications were sent to [facility] - [place], [place] - [address] [facility] [address] lidocaine 5 % patch methocarbamol 750 MG [...] leaflet repair and De Lucas procedure at [facility] ([place]) - OSH CT imaging uploaded and reviewed - 02/25: BCx (+) staph aureus - Underwent chest washout, wound debridement, removal of sternal plates, and wound vac placement on02/[address] Daniel (silver sponge so no WV change til Wednesday) - TTE shows LVEF 59%, mod dilated RV with nl RV fx. TV leaflets thickened. 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 There appears to be [...] 03/04: BCx remain NGTD, picc placed - 6/2: wound vac changed at bedside OUD (POA) Post-Operative Pain - Continue home Suboxone - [facility] Obesity (POA) - BMI 33.47 - Complicates [...] 03/08/2025 2:00 PM Keny Tristan MD [facility] 03/12/2025 9:40 AM Sherlyn Daniel MD [facility] 03/26/2025 11:40 AM Sherlyn Daniel MD [facility] 03/27/2025 9:00 AM Keny Chin MD [facility] 04/10/2025 9:00 AM Leela Chin MD [facility] [place] Follow-up: Francisco [facility] [place] [address] Go on 04/26/2025 Your appointment time is 2:10pm Please arrive 15 minutes early and bring bottles of medication [facility] [address] [place] [phone] Go on 03/12/2025 03/12/25 at 11:30 AM - Infusion Center for PICC and labs Wound Vac Changes MWF - same location, but in Physical Therapy Department - First Appointment 03/14/25 9:00 AM [facility] [address] [place] [address] Follow up for IV antibiotics and supplies Stephen Tello, SONYA [address] [place] [address] [facility] Test Results Pending At Discharge [...] Note Alex Amaya 34 y.o. male CSN: [id number] Admission: 02/25/2025 2:42 AM Primary Problem: Sternal wound dehiscence, initial encounter Primary Ccu Nurse: Primary Caregiver: Self Assistance Available at Discharge: Availability of Care Givers (#Hours): 24 hours, No assistance needed Family/Ccu Nurse(s) Willingness Assessed to care for patient at [...] 30 days Follow-up: Francisco Javier [facility] [place] [id number] Go on 04/26/2025 Your appointment time is 2:10pm Please arrive 15 minutes early and bring bottles of medication [facility] [address] [facility] [address] [place] [phone] Go on 03/12/2025 03/12/25 at 11:30 AM - Infusion Center for PICC and labs Wound Vac Changes MWF - same location, but in Physical Therapy Department - First Appointment 03/14/25 9:00 AM [facility] [address] [place] [address] Follow up for IV antibiotics and supplies Stephen Tello, SONYA [address] [place] [address] [facility] Discharge Transportation: Transportation Anticipated: family [...] vac changes and then will go to [facility]. S/O will assist and transport. [...] note were not included. [address] Narcan Nasal [place]: Rescue Guide for Opioid Overdose Step 1 [...] for use in the nose. * [facility] - Barbara Martins - 03/06/2025 9:41 AM EDT Images from the original note were not included. [id number] Methocarbamol Brand Name(s): Robaxin??; also available generically [...] be awakened, immediately call emergency services at 851. What OTHER INFORMATION should I know? Keep all appointments with your doctor. Do not let anyone else take your medication. Ask your pharmacist any questions you have about refilling your prescription. It is important for you to keep a written list of all of the prescription and nonprescription (pooz-feo-zkccihi) medicines you are taking, as well as [...] or pharmacist about specific clinical use. The [place] [employer] represents that the information provided hereunder was formulated with a reasonable standard of care, and in conformity with professional standards in the field. The [place] [employer] makes no representations or warranties, express or implied, including, but not limited to, any implied warranty of merchantability and/or fitness for a particular purpose, with respect to such information and specifically disclaims all such warranties. Users are advised that decisions regarding drug therapy are complex medical decisions requiring the independent, informed decision of an appropriate health care administrative tech, and the information is provided for informational purposes only. The entire monograph for a drug should be reviewed for a thorough understanding of the drug's actions, uses and side effects. The [place] [employer] does not endorse or recommend the use of any drug.The information is not a substitute for medical care. AHFS?? Patient Medication Information?. ?? Copyright, 2023. The [place] [employer]??, [address], [address], [place], [place]. All Rights Reserved. Duplication for commercial use must be authorized by [facility]. Selected Revisions: May 18, 2017. AHFS?? Patient Medication Information?. ?? Copyright, 2024 * Tyler Easley - Barbara Martins - 03/06/2025 9:41 AM EDT Images from the original note were not included. [id number] Lidocaine Transdermal Patch Brand Name(s): Absorbine Jr?? [...] or years after a shingles infection). Nonprescription (xwyw-gcp-zesagsc) lidocaine (Absorbine Jr, Aspercreme, Lidoca re, Salonpas, [...] or doctor for a copy of the network operations manager's information for the patient. Are there OTHER [...] if you have or have ever had bkyuseg-9-yicbuttrq dehydrogenase (G-6PD) deficiency (an inherited blood disorder), [...] and out of their sight and reach. https://www.SGN ([employer])ndaway.org Unneeded medications should be disposed of in [...] of all of the prescription and nonprescription (fhpu-afd-nvanpid) medicines you are taking, as well as [...] or pharmacist about specific clinical use. The [place] [employer] represents that the information provided hereunder was formulated with a reasonable standard of care, and in conformity with professional standards in the field. The [place] [employer] makes no representations or warranties, express or implied, including, but not limited to, any implied warranty of merchantability and/or fitness for a particular purpose, with respect to such information and specifically disclaims all such warranties. Users are advised that decisions regarding drug therapy are complex medical decisions requiring the independent, informed decision of an appropriate health care administrative tech, and the information is provided for informational purposes only. The entire monograph for a drug should be reviewed for a thorough understanding of the drug's actions, uses and side effects. The [place] [employer] does not endorse or recommend the use of any drug.The information is not a substitute for medical care. AHFS?? Patient Medication Information?. ?? Copyright, 2023. The [place] [employer]??, [address], [address], [place]. All Rights Reserved. Duplication for commercial use must be authorized by [facility]. Selected Revisions: March 18, 2021. AHFS?? Patient Medication Information?. ?? Copyright, 2024 * Tyler Easley - Barbara Martins - 03/06/2025 9:41 AM EDT Images from the original note were not included. [id number] Cefazolin Injection Brand Name(s): Ancef?, Kefzol?; also [...] of all of the prescription and nonprescription (zhjx-uqc-qrcgvhu) medicines you are taking, as well as [...] or pharmacist about specific clinical use. The [place] [employer] represents that the information provided hereunder was formulated with a reasonable standard of care, and in conformity with professional standards in the field. The [place] [employer] makes no representations or warranties, express or implied, including, but not limited to, any implied warranty of merchantability and/or fitness for a particular purpose, with respect to such information and specifically disclaims all such warranties. Users are advised that decisions regarding drug therapy are complex medical decisions requiring the independent, informed decision of an appropriate health care administrative tech, and the information is provided for informational purposes only. The entire monograph for a drug should be reviewed for a thorough understanding of the drug's actions, uses and side effects. The [place] [employer] does not endorse or recommend the use of any drug.The information is not a substitute for medical care. AHFS?? Patient Medication Information?. ?? Copyright, 2023. The [place] [employer]??, [address], [address], [place], [place]. All Rights Reserved. Duplication for commercial use must be authorized by [facility]. Selected Revisions: March 23, 2024. AHFS?? [...] present and normoactive x 4 quadrants SKIN: [place], warm, and dry. No rash, sores, or [...] leaflet repair and De Lucas procedure at [facility]) - [place] CT imaging uploaded and reviewed - 02/25: BCx (+) staph aureus - Underwent chest washout, wound debridement, removal of sternal plates, and wound vac placement on02/[address] Daniel (silver sponge so no WV change til Wednesday) - TTE shows LVEF 59%, mod dilated RV with nl RV fx. TV leaflets thickened. 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 There appears to be [...] WV changes, continue home Suboxone Cardiothoracic Surgery [phone] * Progress Notes - Lise Christine, RN - 03/05/2025 3:07 PM EDT Case Management Discharge Note Alex Amaya 34 y.o. male CSN: [id number] Admission: 02/25/2025 2:42 AM Primary Problem: Sternal wound dehiscence, initial encounter Primary Ccu Nurse: Primary Caregiver: Self Assistance Available at Discharge: Availability of Care Givers (#Hours): 24 hours, No assistance needed Family/Ccu Nurse(s) Willingness Assessed to care for patient at [...] days Follow-up: Francisco Javier Eller MD [address] [facility] [address] Go on 04/26/2025 Your appointment time is 2:10pm Please arrive 15 minutes early and bring bottles of medication [facility] [address] [facility] [address] [facility] [phone] Go on 03/12/2025 03/12/25 at 11:30 AM - Infusion Center for PICC and labs Wound Vac Changes MWF - same location, but in Physical Therapy Department - First Appointment 03/14/25 9:00 AM [facility] [address] [facility] [address] Follow up for IV antibiotics and supplies Discharge Transportation: Transportation Anticipated: family or friend will provide Transportation Home at Discharge: Family/Friend will Provide Follow Up Transport: Transportation Needed to Follow up Appoinments: Family/Friend will Provide Additional Comments: Per primary team patient is medically ready for discharge. Patient will discharge with IV antibiotics from [facility] - supplies will be delivered to bedside. Wound vac ordered through [facility] - will be delivered to bedside. Patient will follow up in Cardiovascular Clinic for first two wound vac changes, then will go to [facility] starting March 14. Patient also scheduled to go to [facility] infusion center for PICC care [...] Roper RN Authorized by: Sherlyn Daniel MD Universal Protocol: Verbal consent obtained?: Yes Written consent [...] vein Patient position: Flat Catheter Lot #: [id number] Catheter network operations manager: [employer] Catheter placed: Single lumen Catheter size: 4 [...] present and normoactive x 4 quadrants SKIN: [place], warm, and dry. No rash, sores, or [...] leaflet repair and De Lucas procedure at [facility] ([place]) - OSH CT imaging uploaded and reviewed - 02/25: BCx (+) staph aureus - Underwent chest washout, wound debridement, removal of sternal plates, and wound vac placement on02/[address] Daniel (silver sponge so no WV change til Wednesday) - TTE shows LVEF 59%, mod dilated RV with nl RV fx. TV leaflets thickened. 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 There appears to be [...] present and normoactive x 4 quadrants SKIN: [place], warm, and dry. No rash, sores, or [...] leaflet repair and De Lucas procedure at [facility] ([place]) - OSH CT imaging uploaded and reviewed - 02/25: BCx (+) staph aureus - Underwent chest washout, wound debridement, removal of sternal plates, and wound vac placement on02/[address] Daniel (silver sponge so no WV change til Wednesday) - TTE shows LVEF 59%, mod dilated RV with nl RV fx. TV leaflets thickened. 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 There appears to be [...] to order single lumen PICC. Cardiothoracic Surgery [id number] * Care Plan - Yared Cartwright RN [...] Review Outcome: Ongoing, Progressing Flowsheets (Taken 03/02/2025 0044) Progress: improving Plan of Care Reviewed With: [...] leaflet repair and De Lucas procedure at [facility] ([place]) - OSH CT imaging uploaded and reviewed - 02/25: BCx (+) staph aureus - Underwent chest washout, wound debridement, removal of sternal plates, and wound vac placement on02/[address] Daniel (silver sponge so no WV change til Wednesday) - TTE shows LVEF 59%, mod dilated RV with nl RV fx. TV leaflets thickened. 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 There appears to be [...] Post-Operative Pain - [facility] Obesity (POA) - BMI 33.47 - Complicates care Plan: - Continue cefazolin per ID - Continue wound vac - Per ID, if BC from 02/27 & 03/01 remain negative, okay to order single lumen PICC. Cardiothoracic Surgery [phone] * Significant Event - Keny Chin MD [...] 0930AM WEEK 6 FOLLOWUP: 04/10/2025, 0900AM at [address] [place] [address] (Select Option 3 for IV Antibiotic / PICC line related issues) All questions regarding outpatient parenteral antimicrobials after discharge should be directed to the OPAT nurse navigator at (Select Option 3 for IV Antibiotics/PICC Issues) between 8am-5pm. After 5 pm, or during weekends/ holidays, please call the paging diesel truck crane operator at to reach the on-call ID [...] mg, Oral, q4h PRN, Zacher, Kelsie A, DIRECTOR OF RELIGIOUS ACTIVITIES Buprenorphine HCl-Naloxone HCl (Suboxone) 8-2 MG per SL film 8 mg, 8 mg, Sublingual, BID, Alejandro Sandoval PA, 8 mg at 03/02/25 0924 calcium carbonate (Tums) chewable tablet 500 mg, 500 mg, Oral, q6h PRN, Zacher, Kelsie A, DIRECTOR OF RELIGIOUS ACTIVITIES ceFAZolin (Ancef) injection 2 g, 2 g, Intravenous, q8h, Zacher, Kelsie A, DIRECTOR OF RELIGIOUS ACTIVITIES, 2 g at 03/02/25 0923 docusate sodium (Colace) capsule 100 mg, 100 mg, Oral, BID, Zacher, Kelsie A, DIRECTOR OF RELIGIOUS ACTIVITIES, 100 mg at 03/02/25 0923 heparin (porcine) injection 5,000 Units, 5,000 Units, Subcutaneous, q8h [facility], Maxwell Ocasio MD, 5,000 Units at 03/02/25 0515 HYDROmorphone (Dilaudid) tablet 2 mg, 2 mg, Oral, q6h PRN, Zacher, Kelsie A, DIRECTOR OF RELIGIOUS ACTIVITIES ibuprofen tablet 600 mg, 600 mg, Oral, q6h PRN, Zacher, Kelsie A, DIRECTOR OF RELIGIOUS ACTIVITIES lidocaine (Lidoderm) 5 % patch 1 patch, 1 patch, Apply externally, q24h, Zacher, Kelsie A, DIRECTOR OF RELIGIOUS ACTIVITIES, 1 patch at 05/29/25 2112 methocarbamol (Robaxin) tablet 750 mg, 750 mg, [...] regurgitation. Tricuspid Valve: The leaflets appear thickened. 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 There appears to be [...] is no recent study available for direct zvbj-vv-zzsd comparison. 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 Ptalso with h/o TV IE in 2019 for which he had TV leaflet repair and De Lucas procedure at [facility] ([place] Pt was incarcerated at the time, and post-discharge developed chronic drainage from cephalad portion of sternal wound. Pt reportedly had I&Ds at senior living medical facility. Wound subsequentlyhas open and closed several times since 2021, including in December 2024. On/around 02/19/2025, wound again ruptured with large amount of purulent drainage, which pt described as largest amount of renata inage in several years. Pt seen at [facility] 02/24/2025. 02/24/2025 CT showed 2.4x2.1x2.6cm abscess [...] leaflet repair and De Lucas procedure at [facility]) SUBSTANCE ABUSE: Illicit: H/o IVDA, polysubstance abuse. [...] appointment in order to complete registration paperwork.) [facility] (Infectious Diseases Clinic) [address] [place] [id number] DISTRIBUTION FIELD TECHNICIAN: . FAX: [facility] Bone and Joint Consult Service will sign [...] arms away from your body. * [facility] - Donna Rosario RN - 03/02/2025 10:43 AM EDT Images from the original note were not included. [id number] Understanding Wound Separation After Surgery (Wound Dehiscence) [...] of the opening. How to say it [id number] How wound dehiscence happens A wound can [...] out Last Reviewed Date: 2024 00:00:00 ?? [id number] The [employer]. All rights reserved. This information is not intended as a substitute for professional medical care. Always follow your healthcare professional's instructions. * Consults - Asia Neumann RD - 03/02/2025 9:48 AM EDT Adult Nutrition Evaluation Note Alex Amaya 34 y.o. male CSN: [id number] Room/Bed 119/119A Nutrition evaluation type: assessment Reason for evaluation: [facility] Hospital course: 34 yo male transferred to from [place] for evaluation of chronic sternotomy wound with chest abscess. He states that he had to have several incision and drainages of the superior aspect of his sternotomy scar that occurred in the medical facility at the senior living that he was in due to drainage with the last in 2021. He reports that the area has chronically healed and opened up multipletimes, most recently about 3 months ago. Past medical/ surgical history: IVDU on suboxone, infectious endocarditis requiring tricuspid valverepair in [place] in 2019. Medical History[1] Surgical History[2] Social [...] (Room air) O2 Delivery Method: Nasal cannula [place] Coma Scale Score: 15 Jhony Scale Score: [...] (260 lb 12.9 oz) BMI (Calculated): 33.47 [place] Body Weight (kg): 86.4 Percent [place] Body Weight: 137 Adjusted Body Weight (kg): 94.4 Estimated Needs: Metabolic Cart Study Results: Current Nutrition Intake: Diet Supplements: None Diet Order: Adult Diet Diet Texture: Regular Percent Meals Eaten (%): 100% x 3 meals Diet Experience and Nutrition History: Diet Education Provided: Will monitor Pertinent home medications: Reviewed Zoroastrian needs: Nutrition Focused Physical Exam: Physical exam [...] with nl RV fx. TV leaflets thickened. 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 There appears to be restricted motion/malcoaptation involving the septal leaflet. There is no tricuspid valve vegetation. There is severe tricuspid regurgitation. There is systolic flow reversal of the hepatic veins consistent with significant tricuspid valve regurgitation. OUD (POA) Post-Operative Pain - continue home Suboxone - [facility] Obesity (POA) - BMI 33.88 - complicates all aspects of care Plan: - Continue IV abx per ID - Continue wound vac - Will need PICC Cardiothoracic Surgery [phone] * Progress Notes - Estefania Salguero - 03/01/2025 8:08 AM EDT Case Management Adult Progress Note Alex Amaya 34 y.o. male CSN: [id number] Admission: 02/25/2025 2:42 AM Primary Problem: Sternal [...] IV Access: pending Patient Specific Outpatient Circumstances: [address] [place], [place] [id number] Family Support: Extended Emergency Contact Information Primary Emergency Contact: Mary Lemus Mobile Relation: Significant Other Preferred language: Thai [employer] Architect needed? No Contact information: Alex Amaya -[phone] Afua Lemus (pt's S.O. -will administer IV abx) - [phone] Outpatient services (including home infusion, home health, [...] PICC care/labs;patient is requesting to go to [facility] close to home . After [...] via secure chat or staff messaging in [employer]. This note is not the final recommendations [...] 500 mg, 500 mg, Oral, q6h PRN, Kelsie Carty DIRECTOR OF RELIGIOUS ACTIVITIES ceFAZolin (Ancef) injection 2 g, 2 g, Intravenous, q8h, Kelsie Carty DIRECTOR OF RELIGIOUS ACTIVITIES, 2 g at 02/28/25 0908 docusate sodium (Colace) capsule 100 mg, 100 mg, Oral, BID, Kelsie Carty DIRECTOR OF RELIGIOUS ACTIVITIES, 100 mg at 02/27/25 2139 heparin (porcine) [...] mL, 10 mL, Intravenous, PRN, Kelsie Carty DIRECTOR OF RELIGIOUS ACTIVITIES O: Visit Vitals BP 134/77 (BP Location: [...] regurgitation. Tricuspid Valve: The leaflets appear thickened. 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 There appears to be [...] is no recent study available for direct bqll-jo-[id number] comparison. 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 Ptalso with h/o TV IE in 2019 for which he had TV leaflet repair and De Lucas procedure at [facility]). Pt was incarcerated at the time, and post-discharge developed chronic drainage from cephalad portion of sternal wound. Pt reportedly had I&Ds at [facility]. Wound subsequentlyhas open and closed several times since 2021, including in December 2024. On/around 02/19/2025, wound again ruptured with large amount of purulent drainage, which pt described as largest amount of renata inage in several years. Pt seen at [facility] 02/24/2025. 02/24/2025 CT showed 2.4x2.1x2.6cm abscess [...] leaflet repair and De Lucas procedure at [facility] SUBSTANCE ABUSE: Illicit: H/o IVDA, polysubstance abuse. [...] CK if patient is on Daptomycin IV. [facility] will follow while inhouse. (If patient does leave AMA, then they will need to find another ID specialist to manage their care.) The following complex inpatient infectious disease services were performed today: Complex antimicrobial therapy counseling and treatment * Progress Notes - Kelsie CartySAJIN - 02/28/2025 11:30 AM EDT CVT Progress [...] (97.3 ??F) Heart Rate: [67-101] 101 Resp: [15-] 16 BP: (102-146)/(66-88) 102/71 Visit Vitals BP [...] with nl RV fx. TV leaflets thickened. 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 There appears to be restricted motion/malcoaptation involving the septal leaflet. There is no tricuspid valve vegetation. There is severe tricuspid regurgitation. There is systolic flow reversal of the hepatic veins consistent with significant tricuspid valve regurgitation. OUD (POA) Post-Operative Pain - continue home Suboxone - [facility] Obesity (POA) - BMI 33.88 - complicates all aspects of care Plan: - continue IV abx per ID - continue wound vac Cardiothoracic Surgery [phone] * Care Plan - Nasra Jasmine, RN - 02/28/2025 10:16 AM EDT Problem: [...] needed in the future. Mayelin Caruso PharmD, [facility] Clinical Pharmacist - Cardiology Contact via secure [...] HCV workup. Branden Elizalde, Pharm D. [facility] SPE[facility] via [...] regurgitation. Tricuspid Valve: The leaflets appear thickened. 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 There appears to be [...] is no recent study available for direct [id number]-[id number] comparison. 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 Ptalso with h/o TV IE in 2019 for which he had TV leaflet repair and De Lucas procedure at [facility] Pt was incarcerated at the time, and post-discharge developed chronic drainage from cephalad portion of sternal wound. Pt reportedly had I&Ds at [facility]. Wound subsequentlyhas open and closed several times since 2021, including in December 2024. On/around 02/19/2025, wound again ruptured with large amount of purulent drainage, which pt described as largest amount of renata inage in several years. Pt seen at [facility] 02/24/2025. 02/24/2025 CT showed 2.4x2.1x2.6cm abscess [...] leaflet repair and De Lucas procedure at [facility] SUBSTANCE ABUSE: Illicit: H/o IVDA, polysubstance abuse. [...] Note Alex Amaya 34 y.o. male CSN: [id number] Admission: 02/25/2025 2:42 AM Primary Problem: Sternal wound dehiscence, initial encounter PCP: Pcp, No Emergency Contact: Extended Emergency Contact Information Primary Emergency Contact: Mary Lemus Mobile Relation: Significant Other Preferred language: Thai [employer] Architect needed? No Insurance: Primary Visit Coverage Payer Plan Sponsor Code Group Number Group Name AETNA AETNA OPEN CHOICE ACCESS [id number] Primary Visit Coverage Subscriber Subscriber ID Subscriber Name Subscriber SSN Subscriber Address [id number] Alex Amaya [id number] [address] [place] [address] Secondary Visit Coverage Payer Plan Sponsor Code Group Number Group Name WELLCARE MEDICAID WELLCARE MEDICAID Secondary Visit Coverage Subscriber Subscriber ID Subscriber Name Subscriber SSN Subscriber Address [id number] Alex Amaya [id number] [address] [place] [address] Patient information: Primary Caregiver: Self Accompanied by/Relationship: Mary Lemus ([phone]) Support System: Immediate family Daily Living Activities: Functional Status: Independent Living Arrangements: Spouse/Significant other, Children (5 y.o. child) Type of Residence: Private residence, Single Level (1-2 DANIS) [address] [phone] Current DME: Equipment Currently Used at Home: [...] Dialysis Services: N/A Living Will/Advance Directive/Power of Intellectual Property Legal Assistant /Guardian: Have you reviewed your Advance Directive [...] pt accompanied by significant other Mary Mariah ([phone]). Pt does not have a POA/LW/AD. Pt [...] DC. Pt has never worked with an CAREER DEVELOPMENT SPECIALIST and has never stayed anywhere overnight for physical rehab. Pt prefers [facility] in [place] as his pharmacy. Pt confirms insurance listed [...] sounds present and normoactivex 4 quadrants SKIN: [place], warm, and dry. No rash, sores, or [...] Post-Operative Pain - continue home Suboxone - [facility] Obesity (POA) - BMI 32 - complicates all aspects of care Plan: - continue IV abx per ID - continue wound vac - TTE completed this morning, read pending Cardiothoracic Surgery [phone] * Discharge Instr - Other Orders - Donna Rosario RN - 02/27/2025 10:28 AM EDT Please arrive 30 minutes early for your appointment with Dr. Daniel Prior to your appointment, go to the radiology department on the 1st floor of the [facility] near [facility] for a chest x-ray. [...] your incisions. Do NOT lift, push or meat puller 5 pounds for six weeks. Do [...] Donna Rosario CT Surgery Nurse Navigator at [phone] Wednesday through Wednesday 7am- 3:30pm [facility] [phone] after 3:30 pm, weekends and holidays - ask for the CT surgeon refrigeration mechanic. * Progress Notes - Alejandro Sandoval PA [...] sounds present and normoactivex 4 quadrants SKIN: [place], warm, and dry. No rash, sores, or [...] Post-Operative Pain - continue home Suboxone - [facility] Obesity (POA) - BMI 32 - complicates all aspects of care Plan: - continue IV abx per ID - continue wound vac Cardiothoracic Surgery [phone] * Anesthesia PACU Signout - Umberto Davis [...] CORONARY ARTERY BYPASS GRAFTING: Date: 02/26/2025 Location: [facility] Name: Alex Amaya, : 1990, Pre-operative [...] suboxone, infectious endocarditisrequiring tricuspid valve repair in [place] in 2019. He states that he had to have several incision and drainages of the superior aspect of his sternotomy scar that occurred in the medical facility at the senior living that he was in due to drainage [...] midnight. Pacheco Ocasio MD Cardiothoracic Surgery Pager: [phone] * Significant Event - Alejandro Sandoval PA - 02/25/2025 1:35 PM EDT Patient seen and evaluated with Dr Daniel. Will go to OR tomorrow for chest washout and removal of sternal plates with Dr Daniel. Pre-op orders placed. Consent obtained and placed in paper chart. NPOp MN. CT Surgery [phone] * Consults - Kinga Mc MD - [...] valve repair with a DeVega Procedure at [facility] (2019), multiple I&Ds of superior sternotomy site most recent in 2021, and chronic drainage of sternotomy (last episode 3 months prior) who presents as a transfer from [facility] with new and worsened superior sternotomy drainage. MDET team were consulted to provide recommendations on therapy and management. Mr. Amaya first noted repeat drainage on 02/19/25, associated with fevers, chills, and swelling. He went to a local ED and was discharged. Given no change he then went to [facility]. CT Chest showed a fluid collection [...] the above history anddescribes following with a manager progressive care Dr. Park. Social: Was recently incarcerated until [...] Value Units Date/Time Blood Culture (Aerobic/Anaerobet Set) [[id number]] Collected: 02/25/25317 Order Status: Completed Specimen: Blood, Venous Updated: 02/25/25 0607 Culture Culture in lab Blood Culture (Aerobic/Anaerobet Set) [[id number]] Collected: 02/25/25317 Order Status: Completed Specimen: Blood, Venous Updated: 02/25/25 0601 Culture Culture in lab Wound Culture and Gram Stain [[id number]] (Abnormal) Collected: 02/25/25 0446 Order Status: Completed Specimen: Swab from Cutaneous skin (specify site) Updated: 02/25/25 05 Gram Stain Result Numerous Polymorphonuclear leukocytes Numerous Gram positive cocci in pairs Numerous Gram positive cocci in clusters Antibiotics: Vancomycin 02/25-P Zosyn 02/25-P Assessment: Alex Amaya is a 34 y.o. 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 MDET team were consulted to provide recommendations on therapy and management. Cultures have not grown any specific organisms at this time, however GS with GPC in pairs and clusters. Agree with washout tomorrow and would obtain cultures. At this time can continue antibiotic therapy. # Hx of nTV ie s/p DeVega Procedure at [facility] (2019) # Sternotomy Site SSTI [...] ID will follow. Sherman Gonzáles MD Pager: [phone] I spent greater than 110 minutes performing the following components of the encounter (on the day of the encounter): reviewing history, examining the patient, reviewing imaging and/or labs, echo, ECGand/or other imaging results, counseling the patient and family/caregiver, communicating with otherhealth home care assistant. The patient is receiving directed antibiotic therapy which requires monitoring of daily labs for toxicities. Greater than 50% of the time spent on the encounter was [id number] providing direct patient care, counseling for the [...] recommendations as appropriate. Thank you, Ru TrejoD, [facility] Clinical Staff Pharmacist * H&P - Cassidy [...] suboxone, infectious endocarditisrequiring tricuspid valve repair in [place] in 2019. He states that he had to have several incision and drainages of the superior aspect of his sternotomy scar that occurred in the medical facility at the senior living that he was in due to drainage [...] and got worse so he went to [facility] where he was found to have [...] Tobacco Use: Medium Risk (01/09/2025) Received from [employer] Patient History Smoking Tobacco Use: Former Smokeless [...] suboxone, infectious endocarditisrequiring tricuspid valve repair in [place] in 2019. He states that he had to have several incision and drainages of the superior aspect of his sternotomy scar that occurred in the medical facility at the senior living that he was in due to drainage [...] and got worse so he went to [facility] where he was found to have [...] infectious endocarditis requiring open heart surgery at [facility] (2019) c/b multiple episodes of medial sternotomy site infection requiring debridement that occurred at a senior living facility (most recent ~2021) who presents with a draining wound at the superior portion of his sternotomy scar with concern for abscess. He states that when he was first postop from his original surgery, he had to have several incision and drainages of the superior aspect of his sternotomy scar that occurred in the medical facility at the senior living that he was in. He had not [...] and got worse so he went to [facility] where he was found to have the chest abscess. He was transferred to [facility] for evaluation with CT surgery and ID History provided by: Patient and medical records director of neurology used: No Patient History Medical History[1] Surgical [...] Set) STAT In process [place] [facility] 02/25/25 0308 Blood Culture (Aerobic/Anaerobet [...] LEWIS 02/25/25 0308 Magnesium STAT Final result [place] [facility] 02/25/25 0308 Phosphorus STAT Final result [place] [facility] 02/25/25 030 C-Reactive protein STAT Final result [place] [facility] 02/25/25 0308 Sed rate, automated STAT Final result [place] [facility] 02/25/25 030 Wound Culture and Gram Stain STAT Collected [place] [facility] ED Course as of 02/25/25 05 Sun February 25, 2025 030 On initial evaluation, pt states that [JG] [address], evidence of extensive subcutaneous edema and infection in the anterior chest wall with fluid collection [JG] 0314 Reviewed of records from [facility], given 1 g ceftriaxone at 19:47. [...] None Disposition Admit Admitting/Attending Physician: SHERLYN DANIEL [[id number]] Provider Care Team: CVT CARDIAC SURGERY [255] Are they the primary team?: Yes [1] - Virginia Lewis MD Internal Medicine, PGY-2 [id number] or via [employer] chat [1] Past Medical History: Diagnosis Date [...] Description 03/26/2025 11:40 AM EDT Office Visit [facility] [address], [address] [place] [address] Sherlyn Daniel MD [address] [place] [address] 03/27/2025 9:00 AM EDT Office Visit [facility] [address] [place] [address] Keny Chin MD [address] [place] [address] 04/10/2025 9:00 AM EDT Office Visit [facility] [address] [place] [address] Leela Chin MD [address] [place] [address] Pending Results Name Type Priority Associated Diagnoses [...] Roper RN Authorized by: Sherlyn Daniel MD [place] Protocol: Verbal consent obtained?: Yes Written consent [...] vein Patient position: Flat Catheter Lot #: [id number] Catheter network operations manager: [employer] Catheter placed: Single lumen Catheter size: 4 Fr Catheter trimmed length: 51 Catheter threaded length: 51 Vein placed in: SVC Catheter cm indwellin Catheter cm outside: 0 Placement confirmed by: [employer] 3CG technology Pre-procedure: Landmarks identified Ultrasound guidance: [...] sult * Morphology (03/03/2025 2:11 AM EDT) Pathologist [facility] RBC Morphology RBC Morphology Consistent with Indices and RDW LAB HEMATOLOGY METHOD 03/03/2025 3:14 AM EDT [facility] Platelet Estimate Platelet smear estimate consistent with automated count LAB HEMATOLOGY METHOD 03/03/2025 3:14 AM EDT [facility] Blood Venous blood specimen / Unknown Venipuncture / Unknown 03/03/2025 2:11 AM EDT 03/03/2025 2:25 AM EDT Kelsie Carty APRN LAB BLOOD ORDERABLES Final R esult [facility] [address] [place] [address] * (ABNORMAL) Manual Differential (03/03/2025 2:11 AM EDT) Blasts % 0 % LAB HEMATOLOGY METHOD 03/03/2025 3:14 AM EDT [facility] Promyelocytes % 0 % LAB HEMATOLOGY METHOD 03/03/2025 3:14 AM EDT [facility] Myelocytes % 2 % LAB HEMATOLOGY METHOD 03/03/2025 3:14 AM EDT [facility] Metamyelocytes % 3 % LAB HEMATOLOGY METHOD 03/03/2025 3:14 AM EDT [facility] Neutrophils % 75 % LAB HEMATOLOGY METHOD 03/03/2025 3:14 AM EDT [facility] Lymphocytes % 14 % LAB HEMATOLOGY METHOD 03/03/2025 3:14 AM EDT [facility] Reactive Lymphocytes % 0 % LAB HEMATOLOGY METHOD 03/03/2025 3:14 AM EDT [facility] Monocytes % 3 % LAB HEMATOLOGY METHOD 03/03/2025 3:14 AM EDT [facility] Eosinophils % 3 % LAB HEMATOLOGY METHOD 03/03/2025 3:14 AM EDT [facility] Basophils % 0 % LAB HEMATOLOGY METHOD 03/03/2025 3:14 AM EDT [facility] Blasts Absolute 0.00 10*3/UL LAB HEMATOLOGY METHOD 03/03/2025 3:14 AM EDT [facility] Promyelocytes Absolute 0.00 10*3/uL LAB HEMATOLOGY METHOD 03/03/2025 3:14 AM EDT [facility] Myelocytes Absolute 0.21 10*3/uL LAB HEMATOLOGY METHOD 03/03/2025 3:14 AM EDT [facility] Metamyelocytes Absolute 0.31 10*3/uL LAB HEMATOLOGY METHOD 03/03/2025 3:14 AM EDT [facility] Neutrophils Absolute 7.72(H) 1.60 - 6.10 10*3/uL LAB HEMATOLOGY METHOD 03/03/2025 3:14 AM EDT [facility] Lymphocytes Absolute 1.44 1.20 - 3.90 10*3/uL LAB HEMATOLOGY METHOD 03/03/2025 3:14 AM EDT [facility] Reactive Lymphocytes Absolute 0.00 10*3/uL LAB HEMATOLOGY METHOD 03/03/2025 3:14 AM EDT [facility] Monocytes Absolute 0.31 0.30 - 0.90 10*3/uL LAB HEMATOLOGY METHOD 03/03/2025 3:14 AM EDT [facility] Eosinophils Absolute 0.31 0.00 - 0.50 10*3/uL LAB HEMATOLOGY METHOD 03/03/2025 3:14 AM EDT [facility] Basophils Absolute 0.00 0.00 - 0.10 10*3/uL LAB HEMATOLOGY METHOD 03/03/2025 3:14 AM EDT [facility] Blood Venous blood specimen / Unknown Venipuncture / Unknown 03/03/2025 2:11 AM EDT 03/03/2025 2:25 AM EDT us Kelsie Carty DIRECTOR OF RELIGIOUS ACTIVITIES LAB BLOOD ORDERABLES Final R esult [facility] [address] [place] [address] * (ABNORMAL) Hepatic function panel (03/03/2025 2:11 AM EDT) Conjugated Bilirubin, Plasma <0.2 <=0.3 mg/dL 03/03/2025 2:55 AM EDT [facility] Comment:Hemolyzed, result ma y be falsely decreased. Alkaline Phosphatase, Plasma 99 40 - 115 U/L 03/03/2025 2:55 AM EDT [facility] Total Bilirubin, Plasma 0.3 0.2 - 1.1 mg/dL 03/03/2025 2:55 AM EDT [facility] Albumin, Plasma 3.3(L) 3.5 - 5.2 g/dL 03/03/2025 2:55 AM EDT [facility] Total Protein 7.9 6.3 - 7.9 g/dL 03/03/2025 2:55 AM EDT [facility] ALT, Plasma 36 10 - 50 U/L 03/03/2025 2:55 AM EDT [facility] AST, Plasma 46 10 - 50 U/L 03/03/2025 2:55 AM EDT [facility] Comment:Hemolyzed, result ma y be falsely increased. Blood Venous blood specimen / Unknown Venipuncture / Unknown 03/03/2025 2:11 AM EDT 03/03/2025 2:23 AM EDT us Kelsie Carty DIRECTOR OF RELIGIOUS ACTIVITIES LAB BLOOD ORDERABLES Final R esult [facility] [address] [place] [address] * Magnesium, Plasma (03/03/2025 2:11 AM EDT) Magnesium, Plasma 2.2 1.9 - 2.4 mg/dL 03/03/2025 2:55 AM EDT [facility] Blood Venous blood specimen / Unknown Venipuncture / Unknown 03/03/2025 2:11 AM EDT 03/03/2025 2:23 AM EDT us Kelsie Carty APRN LAB BLOOD ORDERABLES Final R esult Performing Organization Address City/[facility]/ZIP Co de Phone Number [facility] [address] [place] [address] * CBC and Differential (03/03/2025 2:11 AM EDT) WBC Count 10.29 3.70 - 10.30 10*3/uL LAB HEMATOLOGY METHOD 03/03/2025 3:15 AM EDT [facility] RBC Count 5.48 4.60 - 6.10 10*6/uL LAB HEMATOLOGY METHOD 03/03/2025 3:15 AM EDT [facility] HGB 15.6 13.7 - 17.5 g/dL LAB HEMATOLOGY METHOD 03/03/2025 3:15 AM EDT [facility] HCT 47.6 40.0 - 51.0 % LAB HEMATOLOGY METHOD 03/03/2025 3:15 AM EDT [facility] Platelet Count 329 155 - 369 10*3/uL LAB HEMATOLOGY METHOD 03/03/2025 3:15 AM EDT [facility] MCV 87 79 - 98 fL LAB HEMATOLOGY METHOD 03/03/2025 3:15 AM EDT [facility] MCH 28.5 26.0 - 32.0 pg LAB HEMATOLOGY METHOD 03/03/2025 3:15 AM EDT [facility] MCHC 32.8 30.7 - 35.5 g/dL LAB HEMATOLOGY METHOD 03/03/2025 3:15 AM EDT [facility] RDW 12.9 11.5 - 14.5 % LAB HEMATOLOGY METHOD 03/03/2025 3:15 AM EDT [facility] MPV 9.1 8.8 - 12.5 fL LAB HEMATOLOGY METHOD 03/03/2025 3:15 AM EDT [facility] nRBC 0.0 <=0.0 per 100 WBCs LAB HEMATOLOGY METHOD 03/03/2025 3:15 AM EDT [facility] Differential Type Manual LAB HEMATOLOGY METHOD 03/03/2025 3:15 AM EDT [facility] Blood Venous blood specimen / Unknown Venipuncture / Unknown 03/03/2025 2:11 AM EDT 03/03/2025 2:25 AM EDT Narrative [facility] - 03/03/2025 3:15 AM EDT [...] APRN LAB BLOOD ORDERABLES Final R esult [facility] [address] [place] [address] * Blood Culture (Aerobic/Anaerobet Set) (03/03/2025 2:11 AM EDT) Culture No growth at day 5 GEENA 03/08/2025 4:02 AM EDT [facility] Blood Structure of antecubital vein / Unknown Venipuncture / Unknown 03/03/2025 2:11 AM EDT 03/03/2025 3:04 AM EDT Narrative [facility] - 03/08/2025 4:02 AM EDT Low blood volume submitted, results may be compromised Kelsie Carty DIRECTOR OF RELIGIOUS ACTIVITIES LAB MICROBIOLOGY - GENERAL O RDERABLES Final Result Performing Organization Address City/[facility]/ZIP Co de Phone Number [facility] [address] [place] [address] * Blood Culture (Aerobic/Anaerobet Set) (03/03/2025 2:11 AM EDT) Culture No growth at day 5 GEENA 03/08/2025 4:02 AM EDT [facility] Blood Venous blood specimen / Unknown Venipuncture / Unknown 03/03/2025 2:11 AM EDT 03/03/2025 3:03 AM EDT us Kelsie Carty DIRECTOR OF RELIGIOUS ACTIVITIES LAB MICROBIOLOGY - GENERAL O RDERABLES Final Result Performing Organization Address City/[facility]/ZIP Co de Phone Number [facility] [address] [place] [address] * (ABNORMAL) CBC W/O Differential (03/01/2025 3:55 AM EDT) WBC Count 7.81 3.70 - 10.30 10*3/uL LAB HEMATOLOGY METHOD 03/01/2025 4:12 AM EDT [facility] RBC Count 4.51(L) 4.60 - 6.10 10*6/uL LAB HEMATOLOGY METHOD 03/01/2025 4:12 AM EDT [facility] HGB 12.8(L) 13.7 - 17.5 g/dL LAB HEMATOLOGY METHOD 03/01/2025 4:12 AM EDT [facility] HCT 40.5 40.0 - 51.0 % LAB HEMATOLOGY METHOD 03/01/2025 4:12 AM EDT [facility] Platelet Count 292 155 - 369 10*3/uL LAB HEMATOLOGY METHOD 03/01/2025 4:12 AM EDT [facility] MCV 90 79 - 98 fL LAB HEMATOLOGY METHOD 03/01/2025 4:12 AM EDT [facility] [facility] MCH 28.4 26.0 - 32.0 pg LAB HEMATOLOGY METHOD 03/01/2025 4:12 AM EDT [facility] MCHC 31.6 30.7 - 35.5 g/dL LAB HEMATOLOGY METHOD 03/01/2025 4:12 AM EDT [facility] RDW 13.0 11.5 - 14.5 % LAB HEMATOLOGY METHOD 03/01/2025 4:12 AM EDT [facility] MPV 9.5 8.8 - 12.5 fL LAB HEMATOLOGY METHOD 03/01/2025 4:12 AM EDT [facility] nRBC 0.0 <=0.0 per 100 WBCs LAB HEMATOLOGY METHOD 03/01/2025 4:12 AM EDT [facility] Blood Venous blood specimen / Unknown Venipuncture / Unknown 03/01/2025 3:55 AM EDT 03/01/2025 4:04 AM EDT Catalina Cuba MD LAB BLOOD ORDERABLES Final Result [facility] [address] [place] [address] * (ABNORMAL) Basic metabolic panel (03/01/2025 3:55 AM EDT) Glucose, Plasma 94 74 - 99 mg/dL 03/01/2025 4:37 AM EDT [facility] BUN, Plasma 14 7 - 21 mg/dL 03/01/2025 4:37 AM EDT [facility] Creatinine, Plasma 0.92 0.70 - 1.20 mg/dL 03/01/2025 4:37 AM EDT [facility] BUN/Creatinine Ratio 15 03/01/2025 4:37 AM EDT [facility] Sodium, Plasma 140 136 - 145 mmol/L 03/01/2025 4:37 AM EDT [facility] Potassium, Plasma 4.4 3.6 - 4.9 mmol/L 03/01/2025 4:37 AM EDT [facility] Chloride, Plasma 105 97 - 107 mmol/L 03/01/2025 4:37 AM EDT [facility] CO2, Plasma 25 22 - 29 mmol/L 03/01/2025 4:37 AM EDT [facility] Anion Gap 10 6 - 16 mmol/L 03/01/2025 4:37 AM EDT [facility] Total Calcium, Plasma 8.8(L) 8.9 - 10.2 mg/dL 03/01/2025 4:37 AM EDT [facility] eGFRcr 110.6 mL/min/1.7 3m*2 03/01/2025 4:37 AM EDT [facility] Comment:Reported eGFRcr in m L/min/1.73m2 is based the CKD-EPI 2020 equation that does not use a race coefficient. Blood Venous blood specimen / Unknown Venipuncture / Unknown 03/01/2025 3:55 AM EDT 03/01/2025 4:04 AM EDT us Catalina Cuba MD LAB BLOOD ORDERABLES Final Result Performing Organization Address City/[facility]/ZIP Co de Phone Number [facility] [address] [place] [address] * Blood Culture (Aerobic/Anaerobet Set) (03/01/2025 3:45 AM EDT) Culture No growth at day 5 GEENA 03/06/2025 5:01 AM EDT [facility] Blood Venous blood specimen / Unknown Venipuncture / Unknown 03/01/2025 3:45 AM EDT 03/01/2025 4:45 AM EDT us Kelsie Carty APRN LAB MICROBIOLOGY - GENERAL O RDERABLES Final Result [facility] [address] [place] [address] * Blood Culture (Aerobic/Anaerobet Set) (03/01/2025 3:30 AM EDT) Culture No growth at day 5 GEENA 03/06/2025 5:01 AM EDT [facility] Blood Venous blood specimen / Unknown Venipuncture / Unknown 03/01/2025 3:30 AM EDT 03/01/2025 4:45 AM EDT us Kelsie Carty APRN LAB MICROBIOLOGY - GENERAL O RDERABLES Final Result Performing Organization Address [facility]/ZIP Co de Phone Number [facility] [address] [place] [address] * Magnesium (02/28/2025 4:03 AM EDT) Magnesium, Plasma 2.2 1.9 - 2.4 mg/dL 02/28/2025 4:37 AM EDT [facility] Blood Venous blood specimen / Unknown Venipuncture / Unknown 02/28/2025 4:03 AM EDT 02/28/2025 4:10 AM EDT us Sherlyn Daniel MD LAB BLOOD ORDERABLES Final Res ult Performing Organization Address City/[facility]/ZIP Co de Phone Number [facility] [address] [place] [address] * (ABNORMAL) CBC W/O Differential (02/28/2025 4:03 AM EDT) WBC Count 7.50 3.70 - 10.30 10*3/uL LAB HEMATOLOGY METHOD 02/28/2025 4:26 AM EDT [facility] RBC Count 4.59(L) 4.60 - 6.10 10*6/uL LAB HEMATOLOGY METHOD 02/28/2025 4:26 AM EDT [facility] HGB 13.1(L) 13.7 - 17.5 g/dL LAB HEMATOLOGY METHOD 02/28/2025 4:26 AM EDT [facility] HCT 40.6 40.0 - 51.0 % LAB HEMATOLOGY METHOD 02/28/2025 4:26 AM EDT [facility] Platelet Count 252 155 - 369 10*3/uL LAB HEMATOLOGY METHOD 02/28/2025 4:26 AM EDT [facility] MCV 89 79 - 98 fL LAB HEMATOLOGY METHOD 02/28/2025 4:26 AM EDT [facility] MCH 28.5 26.0 - 32.0 pg LAB HEMATOLOGY METHOD 02/28/2025 4:26 AM EDT [facility] MCHC 32.3 30.7 - 35.5 g/dL LAB HEMATOLOGY METHOD 02/28/2025 4:26 AM EDT [facility] RDW 13.2 11.5 - 14.5 % LAB HEMATOLOGY METHOD 02/28/2025 4:26 AM EDT [facility] MPV 9.8 8.8 - 12.5 fL LAB HEMATOLOGY METHOD 02/28/2025 4:26 AM EDT [facility] nRBC 0.0 <=0.0 per 100 WBCs LAB HEMATOLOGY METHOD 02/28/2025 4:26 AM EDT [facility] Blood Venous blood specimen / Unknown Venipuncture / Unknown 02/28/2025 4:03 AM EDT 02/28/2025 4:12 AM EDT us Sherlyn Daniel MD LAB BLOOD ORDERABLES Final Res ult [facility] [address] [place] [address] * (ABNORMAL) Basic metabolic panel (02/28/2025 4:03 AM EDT) Glucose, Plasma 110(H) 74 - 99 mg/dL 02/28/2025 4:37 AM EDT [facility] BUN, Plasma 18 7 - 21 mg/dL 02/28/2025 4:37 AM EDT [facility] Creatinine, Plasma 1.15 0.70 - 1.20 mg/dL 02/28/2025 4:37 AM EDT [facility] BUN/Creatinine Ratio 16 02/28/2025 4:37 AM EDT [facility] Sodium, Plasma 136 136 - 145 mmol/L 02/28/2025 4:37 AM EDT [facility] Potassium, Plasma 3.8 3.6 - 4.9 mmol/L 02/28/2025 4:37 AM EDT [facility] Chloride, Plasma 104 97 - 107 mmol/L 02/28/2025 4:37 AM EDT [facility] CO2, Plasma 24 22 - 29 mmol/L 02/28/2025 4:37 AM EDT [facility] Anion Gap 8 6 - 16 mmol/L 02/28/2025 4:37 AM EDT [facility] Total Calcium, Plasma 8.6(L) 8.9 - 10.2 mg/dL 02/28/2025 4:37 AM EDT [facility] eGFRcr 84.6 mL/min/1.7 3m*2 02/28/2025 4:37 AM EDT [facility] Comment:Reported eGFRcr in m L/min/1.73m2 is based the CKD-EPI 2020 equation that does not use a race coefficient. Blood Venous blood specimen / Unknown Venipuncture / Unknown 02/28/2025 4:03 AM EDT 02/28/2025 4:10 AM EDT Sherlyn Daniel MD LAB BLOOD ORDERABLES Final Res ult [facility] [address] [place] [address] * PERIPHERAL IV (SMARTFORM LINK) (02/27/2025 6:13 [...] ADULT TRANSTHORACIC COMPLETE (02/27/2025 10:50 AM EDT) [facility] BSA 2.45 m2 HERNESTO ISCV Height 188.0 [...] regurgitation. Tricuspid Valve: The leaflets appear thickened. 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 There appears to be [...] is no recent study available for direct [id number] comparison. Left Ventricle Based on the linear [...] stenosis. Tricuspid Valve The leaflets appear thickened. 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 There appears to be restricted motion/malcoaptation involving [...] is no recent study available for direct [id number] comparison. Wall Scoring Baseline Score Index: 1.00 [...] - 40.0 ug/mL 02/27/2025 11:21 AM EDT [facility] Blood Venous blood specimen / Unknown Venipuncture / Unknown 02/27/2025 10:46 AM EDT 02/27/2025 10:52 AM EDT Narrative [facility] - 02/27/2025 11:21 AM EDT Therapeutic Peak level: 20-40ug/mL Supra-therapeutic Peak level: >40 ug/mL us Alejandro AARON LAB BLOOD ORDERABLES Final R esult [facility] [address] [place] [address] * (ABNORMAL) Lipid panel (02/27/2025 4:33 AM EDT) Cholesterol, Plasma 108 <200 mg/dL 02/27/2025 5:14 AM EDT [facility] Comment: Cholesterol Reference Range (age >17 years): Desirable <200 mg/dL Borderline 200 to 239 mg/dL Undesirable >239 mg/dL HDL 28(L) >=40 mg/dL 02/27/2025 5:14 AM EDT [facility] Comment: HDL Cholesterol Reference Ranges (age >17 years): Female, acceptable > or = 50 mg/dL Male, acceptable > or = 40 mg/dL Triglycerides, Plasma 94 <150 mg/dL 02/27/2025 5:14 AM EDT [facility] Comment: Triglyceride Reference Range (age >17 years): Desirable: <150 mg/dL Borderline high: 150 to 199 mg/dL High: 200 to 499 mg/dL Very high: >499 mg/dL Increased risk of pancreatitis: >1000 mg/dL Cholesterol/HDL Ratio 4 02/27/2025 5:14 AM EDT [facility] LDL, Calculated 62 <100 mg/dL 5:14 AM EDT [facility] Comment: LDL Cholesterol Reference Range [...] 12 hours? No 02/27/2025 5:14 AM EDT [facility] Blood Venous blood specimen / Unknown Venipuncture / Unknown 02/27/2025 4:33 AM EDT 02/27/2025 4:42 AM EDT us Alejandro AARON LAB BLOOD ORDERABLES Final R esult [facility] [address] [place] [address] * Hemoglobin A1c (02/27/2025 4:33 AM EDT) Hemoglobin A1c 5.4 <5.7 % 02/27/2025 7:06 AM EDT [facility] Blood Venous blood specimen / Unknown Venipuncture / Unknown 02/27/2025 4:33 AM EDT 02/27/2025 4:45 AM EDT Narrative [facility] - 02/27/2025 7:06 AM EDT HA1C Interpretive Data: Diagnosis of Diabetes: Diabetic > or = 6.5% Pre-diabetic 5.7 to 6.4% Non-diabetic < or = 5.6% Glycemic Targets for Type I and Type II Diabetics: Non- Adults <7.0% Adults <6.0% Children and Adolescents <7.5% Source: [place] [employer]. Standards of medical care in diabetes,2017. Diabetes Care.2017:40 (suppl 1):S1-S135. us Alejandro AARON LAB BLOOD ORDERABLES Final R esult [facility] [address] [place] [address] * (ABNORMAL) Basic metabolic panel (02/27/2025 4:33 AM EDT) Glucose, Plasma 128(H) 74 - 99 mg/dL 02/27/2025 5:14 AM EDT [facility] BUN, Plasma 18 7 - 21 mg/dL 02/27/2025 5:14 AM EDT [facility] Creatinine, Plasma 1.01 0.70 - 1.20 mg/dL 02/27/2025 5:14 AM EDT [facility] BUN/Creatinine Ratio 18 02/27/2025 5:14 AM EDT [facility] Sodium, Plasma 135(L) 136 - 145 mmol/L 02/27/2025 5:14 AM EDT [facility] Potassium, Plasma 4.6 3.6 - 4.9 mmol/L 02/27/2025 5:14 AM EDT [facility] Chloride, Plasma 101 97 - 107 mmol/L 02/27/2025 5:14 AM EDT [facility] CO2, Plasma 24 22 - 29 mmol/L 02/27/2025 5:14 AM EDT [facility] Anion Gap 10 6 - 16 mmol/L 02/27/2025 5:14 AM EDT [facility] Total Calcium, Plasma 9.2 8.9 - 10.2 mg/dL 02/27/2025 5:14 AM EDT [facility] eGFRcr 98.8 mL/min/1.7 3m*2 02/27/2025 5:14 AM EDT [facility] Comment:Reported eGFRcr in m L/min/1.73m2 is based the CKD-EPI 2020 equation that does not use a race coefficient. Blood Venous blood specimen / Unknown Venipuncture / Unknown 02/27/2025 4:33 AM EDT 02/27/2025 4:42 AM EDT us Sherlyn Daniel MD LAB BLOOD ORDERABLES Final Res ult [facility] [address] [place] [address] * (ABNORMAL) CBC W/O Differential (02/27/2025 4:33 AM EDT) WBC Count 9.62 3.70 - 10.30 10*3/uL LAB HEMATOLOGY METHOD 02/27/2025 4:53 AM EDT [facility] RBC Count 4.58(L) 4.60 - 6.10 10*6/uL LAB HEMATOLOGY METHOD 02/27/2025 4:53 AM EDT [facility] HGB 13.1(L) 13.7 - 17.5 g/dL LAB HEMATOLOGY METHOD 02/27/2025 4:53 AM EDT [facility] HCT 40.8 40.0 - 51.0 % LAB HEMATOLOGY METHOD 02/27/2025 4:53 AM EDT [facility] Platelet Count 247 155 - 369 10*3/uL LAB HEMATOLOGY METHOD 02/27/2025 4:53 AM EDT [facility] MCV 89 79 - 98 fL LAB HEMATOLOGY METHOD 02/27/2025 4:53 AM EDT [facility] MCH 28.6 26.0 - 32.0 pg LAB HEMATOLOGY METHOD 02/27/2025 4:53 AM EDT [facility] MCHC 32.1 30.7 - 35.5 g/dL LAB HEMATOLOGY METHOD 02/27/2025 4:53 AM EDT [facility] RDW 13.1 11.5 - 14.5 % LAB HEMATOLOGY METHOD 02/27/2025 4:53 AM EDT [facility] MPV 10.4 8.8 - 12.5 fL LAB HEMATOLOGY METHOD 02/27/2025 4:53 AM EDT [facility] nRBC 0.0 <=0.0 per 100 WBCs LAB HEMATOLOGY METHOD 02/27/2025 4:53 AM EDT [facility] Blood Venous blood specimen / Unknown Venipuncture / Unknown 02/27/2025 4:33 AM EDT 02/27/2025 4:45 AM EDT Sherlyn Daniel MD LAB BLOOD ORDERABLES Final Res ult Performing Organization Address [facility]/ZIP Co de Phone Number [facility] [address] [place] [address] * Blood Culture (Aerobic/Anaerobet Set) (02/27/2025 4:30 AM EDT) Culture No growth at day 5 GEENA 03/04/2025 5:01 AM EDT [facility] Blood Venous blood specimen / Unknown Venipuncture / Unknown 02/27/2025 4:30 AM EDT 02/27/2025 4:47 AM EDT Sherman Gonzáles MD LAB MICROBIOLOGY - GENERAL O RDERABLES Final Result Performing Organization Address [facility]/[place] [address] * Blood Culture (Aerobic/Anaerobet Set) (02/27/2025 4:00 AM EDT) Culture No growth at day 5 GEENA 03/04/2025 5:01 AM EDT [facility] Blood Venous blood specimen / Unknown Venipuncture / Unknown 02/27/2025 4:00 AM EDT 02/27/2025 4:47 AM EDT us Sherman Gonzáles MD LAB MICROBIOLOGY - GENERAL O RDERABLES Final Result Performing Organization Address City/[facility]/[place] [address] * XR Chest 1 View (02/27/2025 2:37 [...] Culture Light Growth 03/01/2025 3:23 PM EDT [facility] Culture Staphylococcus aureus(A) GEENA 03/01/2025 3:23 PM EDT [facility] Foreign Body Bone structure of [...] ORD ERABLES Final Result Performing Organization Address City/[facility]/ZIP Co de Phone Number [facility] [address] [place] [address] * Anaerobic Culture (02/26/2025 10:10 AM EDT) Culture No anaerobes isolated 03/03/2025 5:50 AM EDT [facility] Foreign Body Bone structure of sternum / Unknown 02/26/2025 10:10 AM EDT 02/26/2025 11:21 AM EDT Comment:Pre-op diagnosis: Chest wall abscess [L02.213] Sherlyn Daniel MD LAB MICROBIOLOGY - GENERAL ORD ERABLES Final Result Performing Organization Address [facility]/[place] Co de Phone Number [facility] [address] [place] [address] * (ABNORMAL) POCT arterial blood gas gem (02/26/2025 9:42 AM EDT) pH, Arterial 7.42 7.35 - 7.45 02/26/2025 9:44 AM EDT [facility] pCO2, Arterial 41 32 - 45 mm Hg 02/26/2025 9:44 AM EDT [facility] pO2, Arterial 105 83 - 108 mm Hg 02/26/2025 9:44 AM EDT [facility] SO2, Arterial 99(H) 94 - 98 % 02/26/2025 9:44 AM [facility] Base Excess, Arterial 1.9 -2 - 3 mmol/L 02/26/2025 9:44 AM [facility] HCO3, Arterial 26.6(H) 22 - 26 mmol/L 02/26/2025 9:44 AM [facility] Total Hemoglobin, Arterial, Whole Blood 13.6(L) 13.7 - 17.5 g/dL 02/26/2025 9:44 AM [facility] Hematocrit, Arterial 41.0 40 - 51.0 % 02/26/2025 9:44 AM [facility] Sodium, Arterial 135(L) 136 - 145 mmol/L 02/26/2025 9:44 AM [facility] Potassium, Arterial 4.1 3.6 - 4.9 mmol/L 02/26/2025 9:44 AM [facility] Chloride, Whole Blood 104 97 - 107 mmol/L 02/26/2025 9:44 AM [facility] Glucose, Arterial 106(H) 74 - 99 mg/dL 02/26/2025 9:44 AM [facility] Ionized Calcium, Arterial 4.7 4.6 - 5.1 mg/dL 02/26/2025 9:44 AM [facility] Lactate, Arterial 0.6 0.5 - 1.6 mmol/L 02/26/2025 9:44 AM [facility] Body Temperature 37.0 Celsius 02/26/2025 9:44 AM [facility] pH, Temp Corrected, Arterial 7.42 7.35 - 7.45 02/26/2025 9:44 AM [facility] pCO2, Temp Corrected, Arterial 41 32 - 45 mm Hg 02/26/2025 9:44 AM [facility] pO2, Temp Corrected, Arterial 105 83 - 108 mm Hg 02/26/2025 9:44 AM [facility] Transfer And Line Up Worker ID Carina Jordan 02/26/2025 9:44 AM [facility] Blood, Arterial Whole blood specimen / Unknown 02/26/2025 9:42 AM EDT 02/26/2025 9:44 AM T us Sherlyn A Tanna MD LAB POINT OF CARE TE ST DOCKED DEVICE UNSOLICITED RESULTS Final Result [facility] [address] [place] [address] * (ABNORMAL) Abscess Culture and Gram Stain (02/26/2025 9:34 AM EDT) Culture Light Growth 03/01/2025 3:22 PM EDT [facility] Culture Staphylococcus aureus(A) GEENA 03/01/2025 3:22 PM EDT [facility] Comment:The organism value f or this result has been updated. These results have been appended to the previously preliminary verified report. Gram Stain Result Few Polymorphonuclear leukocytes(A) 03/01/2025 3:22 PM EDT [facility] Gram Stain Result Few Gram positive cocci in pairs(A) 03/01/2025 3:22 PM EDT [facility] Swab Bone structure of sternum [...] MICROBIOLOGY - GENERAL ORD ERABLES Final Result [facility] [address] [place] [address] * Fungal Culture, Routine (02/26/2025 9:34 AM EDT) Culture No Fungal Growth at 1 Week 03/06/2025 9:03 AM EDT [facility] Swab Bone structure of sternum / Unknown 02/26/2025 9:34 AM EDT 02/26/2025 11:01 AM EDT Comment:Pre-op diagnosis: Chest wall abscess [L02.213] Sherlyn Daniel MD LAB MICROBIOLOGY - GENERAL ORD ERABLES Final Result Performing Organization Address City/[facility]/[place] [address] * Anaerobic Culture (02/26/2025 9:34 AM EDT) Culture No anaerobes isolated 03/03/2025 5:50 AM EDT [facility] Swab Bone structure of sternum / Unknown 02/26/2025 9:34 AM EDT 02/26/2025 11:01 AM EDT Comment:Pre-op diagnosis: Chest wall abscess [L02.213] Sherlyn Daniel MD LAB MICROBIOLOGY - GENERAL ORD ERABLES Final Result Performing Organization Address [facility] [[email or web address]] [place] [address] * Type and screen (02/25/2025 4:54 PM EDT) ABO/Rh O Positive 02/25/2025 12:55 PM EDT [facility] Antibody Screen Negative 02/25/2025 12:55 PM EDT [facility] Specimen Expiration 02/28/2025 23:59 02/25/2025 12:55 PM EDT [facility] Blood Venous blood specimen / Unknown Venipuncture / Unknown 02/25/2025 4:54 PM EDT 02/25/2025 5:14 PM EDT Alejandro AARON LAB BLOOD BANK TEST ORDERABL ES Final Result BLOOD BANK [address] [place] [address], * (ABNORMAL) Wound Culture and Gram Stain (02/25/2025 4:46 AM EDT) CULTURE READING WOUND Moderate Growth 02/27/2025 3:19 PM EDT [facility] CULTURE READING WOUND Staphylococcus aureus(A) GEENA 02/27/2025 3:19 PM EDT [facility] Comment:The organism value f or this result has been updated. These results have been appended to the previously preliminary verified report. Gram Stain Result Numerous Polymorphonuclear leukocytes(A) 02/27/2025 3:19 PM EDT [facility] Gram Stain Result Numerous Gram positive cocci in pairs(A) 02/27/2025 3:19 PM EDT [facility] Gram Stain Result Numerous Gram positive cocci in clusters(A) 02/27/2025 3:19 PM EDT [facility] Swab Skin structure / Unknown [...] MICROBIOLOGY - GENERAL ORD ERABLES Final Result [facility] [address] [place] [address] * (ABNORMAL) Bacterial ID Gram Positive (02/25/2025 3:18 AM EDT) Pathologist [facility] Staphylococcus Result Detected( A) Not Detected 02/26/2025 4:46 AM EDT [facility] Comment:Assess if contaminan t or clinically relevant pathogen. Consider clinical stability and immune status of patient. Blood Venous blood specimen / Unknown Venipuncture / Unknown 02/25/2025 3:18 AM EDT 02/25/2025 4:04 AM EDT Narrative [facility] - 02/26/2025 4:46 AM EDT [...] MICROBIOLOGY - GENERAL ORD ERABLES Final Result [facility] [address] [place] [address] * Hepatitis C Virus (HCV) Quantitative PCR - ED (02/25/2025 3:18 AM EDT) [facility] Hepatitis C Virus (HCV) Quantitative Interpretation Not Detected Not Detected. 02/27/2025 2:45 PM EDT [facility] Blood Venous blood specimen / Unknown Venipuncture / Unknown 02/25/2025 3:18 AM EDT 02/25/2025 3:53 AM EDT Narrative [facility] - 02/27/2025 2:45 PM EDT [...] ORDERABLES Final Res ult Performing Organization Address [facility]/[place] [address] * ED HIV 1/2 Antibody/Antigen Screen w/Reflex to HIV 1/2 Differentiation (02/25/2025 3:18 AM EDT) Pathologist [facility] HIV 1 & 2 Antibody/Antigen Screen Non Reactive Non Reactive 02/25/2025 4:35 AM EDT [facility] Comment:Screening for HIV 1 & 2 antibodies, and P24 antigen is NONREACTIVE. No confirmatory testing is required. Blood Venous blood specimen / Unknown Venipuncture / Unknown 02/25/2025 3:18 AM EDT 02/25/2025 3:53 AM EDT Franco Guillory MD LAB BLOOD ORDERABLES Final Res ult Performing Organization Address City/[facility]/ZIP Co de Phone Number [facility] [address] [place] [address] * (ABNORMAL) Hepatitis C Antibody - ED (02/25/2025 3:18 AM EDT) Hepatitis C Antibody Positive(A ) Negative 02/25/2025 4:40 AM EDT [facility] Blood Venous blood specimen / Unknown Venipuncture / Unknown 02/25/2025 3:18 AM EDT 02/25/2025 3:53 AM EDT us Franco Guillory MD LAB BLOOD ORDERABLES Final Res ult [facility] [address] [place] [address] * (ABNORMAL) Blood Culture (Aerobic/Anaerobet Set) (02/25/2025 3:18 AM EDT) Culture Staphylococcus aureus(AA) GEENA 02/27/2025 1:21 PM EDT [facility] Comment: Isolated from aerobic and anaerobic culture bottles. The organism value for this result has been updated. These results have been appended to the previously preliminary verified report. Culture Staphylococcus coagulase negative(AA) GEENA 02/27/2025 1:21 PM EDT [facility] Comment: Isolated from aerobic and anaerobic culture bottles. Isolated from one bottle only in a 24-hour period. If workup required, contact bacteriology at 91. This organism may be associated with a contaminated culture. The organism value for this result has been updated. These results have been appended to the previously preliminary verified report. Gram Stain Gram positive cocci in clusters(AA) 02/27/2025 1:21 PM EDT [facility] Comment: Organism seen in Anaerobic Blood Culture Bottle. Positivity Date and Time to Detection: 02/25/2025. at 00 Day(s) and 16 Hour(s). This is an appended report. These results have been appended to a previously preliminary verified report. Gram Stain Gram positive cocci in clusters(AA) 02/27/2025 1:21 PM EDT [facility] Comment: Organism seen in Aerobic Blood Culture Bottle. Positivity Date and Time to Detection: 02/25/2025 at 00 Day(s) and 16 Hour(s). This is an appended report. These results have been appended to a previously preliminary verified report. Blood Venous blood specimen / Unknown Venipuncture / Unknown 02/25/2025 3:18 AM EDT 02/25/2025 4:04 AM EDT Narrative [facility] - 02/27/2025 1:21 PM EDT Anaerobic blood culture entered in duplicate. Organism Antibiotic Method Susceptibility Staphylococcus aureus Daptomycin GEENA <=1 ug/ml: Susceptible Staphylococcus aureus Linezolid GEENA <=1 ug/ml: Susceptible Staphylococcus aureus Oxacillin GEENA <=0.25 ug/ml: Susceptible Staphylococcus aureus Vancomycin GEENA 1 ug/ml: Susceptible Franco Guillory MD LAB MICROBIOLOGY - GENERAL ORD ERABLES Final Result [facility] [address] [place] [address] * (ABNORMAL) Blood Culture (Aerobic/Anaerobet Set) (02/25/2025 3:18 AM EDT) Culture Staphylococcus aureus(AA) 03/03/2025 12:34 PM EDT [facility] LAB Comment: For susceptibility results refer to: - [id number] Isolated from aerobic and anaerobic culture bottles. The organism value for this result has been updated. These results have been appended to the previously preliminary verified report. Gram Stain Gram positive cocci in clusters(AA) 03/03/2025 12:34 PM EDT [facility] Comment: Organism seen in Anaerobic Blood Culture Bottle. Positivity Date and Time to Detection: 02/26/2025. at 00 Day(s) and 19 Hour(s). This is an appended report. These results have been appended to a previously preliminary verified report. Gram Stain Gram positive cocci in clusters(AA) 03/03/2025 12:34 PM EDT [facility] Comment: Organism seen in Aerobic [...] MICROBIOLOGY - GENERAL ORD ERABLES Final Result [facility] [address] [place] [address] * (ABNORMAL) Sed rate, automated (02/25/2025 3:18 AM EDT) Sedimentation Rate 65(H) <15 mm/hr 2024 3:54 AM EDT [facility] Blood Venous blood specimen / Unknown Venipuncture / Unknown 02/25/2025 3:18 AM EDT 02/25/2025 3:40 AM EDT Franco Guillory MD LAB BLOOD ORDERABLES Final Res ult Performing Organization Address City/[facility]/[place] [address] * (ABNORMAL) C-Reactive protein (02/25/2025 3:18 AM EDT) CRP, Plasma 282.5(H) <=8.0 mg/L 02/25/2025 4:23 AM EDT [facility] Blood Venous blood specimen / Unknown Venipuncture / Unknown 02/25/2025 3:18 AM EDT 02/25/2025 3:53 AM EDT Narrative [facility] - 02/25/2025 4:23 AM EDT This CRP test is appropriate for assessment of infection, systemic inflammation and/or tissue injury. To assess cardiovascular disease risk order high sensitivity CRP (CRPH). Franco Guillory MD LAB BLOOD ORDERABLES Final Res ult Performing Organization Address City/[facility]/ZIP Co de Phone Number [facility] [address] [place] [address] * Phosphorus (02/25/2025 3:18 AM EDT) Phosphorus, Plasma 2.7 2.5 - 4.5 mg/dL 02/25/2025 4:23 AM EDT [facility] Blood Venous blood specimen / Unknown Venipuncture / Unknown 02/25/2025 3:18 AM EDT 02/25/2025 3:53 AM EDT Franco Guillory MD LAB BLOOD ORDERABLES Final Res ult [facility] [address] [place] [address] * Magnesium (02/25/2025 3:18 AM EDT) Magnesium, Plasma 2.2 1.9 - 2.4 mg/dL 02/25/2025 4:23 AM EDT [facility] Blood Venous blood specimen / Unknown Venipuncture / Unknown 02/25/2025 3:18 AM EDT 02/25/2025 3:53 AM EDT us Franco Guillory MD LAB BLOOD ORDERABLES Final Res ult Performing Organization Address [facility]/ZIP Co de Phone Number [facility] [address] [place] [address] * (ABNORMAL) CMP (02/25/2025 3:18 AM EDT) Glucose, Plasma 132(H) 74 - 99 mg/dL 02/25/2025 4:23 AM EDT [facility] BUN, Plasma 13 7 - 21 mg/dL 02/25/2025 4:23 AM EDT [facility] Creatinine, Plasma 0.86 0.70 - 1.20 mg/dL 02/25/2025 4:23 AM EDT [facility] BUN/Creatinine Ratio 15 02/25/2025 4:23 AM EDT [facility] Sodium, Plasma 137 136 - 145 mmol/L 02/25/2025 4:23 AM EDT [facility] Potassium, Plasma 3.7 3.6 - 4.9 mmol/L 02/25/2025 4:23 AM EDT [facility] Chloride, Plasma 101 97 - 107 mmol/L 02/25/2025 4:23 AM EDT [facility] CO2, Plasma 24 22 - 29 mmol/L 02/25/2025 4:23 AM EDT [facility] Anion Gap 12 6 - 16 mmol/L 02/25/2025 4:23 AM EDT [facility] Total Calcium, Plasma 9.2 8.9 - 10.2 mg/dL 02/25/2025 4:23 AM EDT [facility] Total Protein 7.4 6.3 - 7.9 g/dL 02/25/2025 4:23 AM EDT [facility] Albumin, Plasma 3.5 3.5 - 5.2 g/dL 02/25/2025 4:23 AM EDT [facility] AST, Plasma 20 10 - 50 U/L 02/25/2025 4:23 AM EDT [facility] Comment:Hemolyzed, result ma y be falsely increased. ALT, Plasma 16 10 - 50 U/L 02/25/2025 4:23 AM EDT [facility] Alkaline Phosphatase, Plasma 100 40 - 115 U/L 02/25/2025 4:23 AM EDT [facility] Total Bilirubin, Plasma 0.7 0.2 - 1.1 mg/dL 02/25/2025 4:23 AM EDT [facility] eGFRcr 115.1 mL/min/1.7 3m*2 02/25/2025 4:23 AM EDT [facility] Comment:Reported eGFRcr in m L/min/1.73m2 is based the CKD-EPI 2020 equation that does not use a race coefficient. Blood Venous blood specimen / Unknown Venipuncture / Unknown 02/25/2025 3:18 AM EDT 02/25/2025 3:53 AM EDT Franco Guillory MD LAB BLOOD ORDERABLES Final Res ult [facility] [address] [place] [address] * (ABNORMAL) CBC w/diff (02/25/2025 3:18 AM EDT) WBC Count 9.74 3.70 - 10.30 10*3/uL LAB HEMATOLOGY METHOD 02/25/2025 3:42 AM EDT [facility] RBC Count 5.34 4.60 - 6.10 10*6/uL LAB HEMATOLOGY METHOD 02/25/2025 3:42 AM EDT [facility] HGB 15.5 13.7 - 17.5 g/dL LAB HEMATOLOGY METHOD 02/25/2025 3:42 AM EDT [facility] HCT 45.4 40.0 - 51.0 % LAB HEMATOLOGY METHOD 02/25/2025 3:42 AM EDT [facility] Platelet Count 167 155 - 369 10*3/uL LAB HEMATOLOGY METHOD 02/25/2025 3:42 AM EDT [facility] MCV 85 79 - 98 fL LAB HEMATOLOGY METHOD 02/25/2025 3:42 AM EDT [facility] MCH 29.0 26.0 - 32.0 pg LAB HEMATOLOGY METHOD 02/25/2025 3:42 AM EDT [facility] MCHC 34.1 30.7 - 35.5 g/dL LAB HEMATOLOGY METHOD 02/25/2025 3:42 AM EDT [facility] RDW 13.2 11.5 - 14.5 % LAB HEMATOLOGY METHOD 02/25/2025 3:42 AM EDT [facility] MPV 10.0 8.8 - 12.5 fL LAB HEMATOLOGY METHOD 02/25/2025 3:42 AM EDT [facility] nRBC 0.0 <=0.0 per 100 WBCs LAB HEMATOLOGY METHOD 02/25/2025 3:42 AM EDT [facility] Differential Type Automated LAB HEMATOLOGY METHOD 02/25/2025 3:42 AM EDT [facility] Neutrophils % 80 % LAB HEMATOLOGY METHOD 02/25/2025 3:42 AM EDT [facility] Lymphocytes % 10 % LAB HEMATOLOGY METHOD 02/25/2025 3:42 AM EDT [facility] Monocytes % 8 % LAB HEMATOLOGY METHOD 02/25/2025 3:42 AM EDT [facility] Eosinophils % 1 % LAB HEMATOLOGY METHOD 02/25/2025 3:42 AM EDT [facility] Basophils % 0 % LAB HEMATOLOGY METHOD 02/25/2025 3:42 AM EDT [facility] Immature Granulocytes % 1 % LAB HEMATOLOGY METHOD 02/25/2025 3:42 AM EDT [facility] Neutrophils Absolute 7.79(H) 1.60 - 6.10 10*3/uL LAB HEMATOLOGY METHOD 02/25/2025 3:42 AM EDT [facility] Lymphocytes Absolute 1.00(L) 1.20 - 3.90 10*3/uL LAB HEMATOLOGY METHOD 02/25/2025 3:42 AM EDT [facility] Monocytes Absolute 0.76 0.30 - 0.90 10*3/uL LAB HEMATOLOGY METHOD 02/25/2025 3:42 AM EDT [facility] Eosinophils Absolute 0.11 0.00 - 0.50 10*3/uL LAB HEMATOLOGY METHOD 02/25/2025 3:42 AM EDT [facility] Basophils Absolute 0.02 0.00 - 0.10 10*3/uL LAB HEMATOLOGY METHOD 02/25/2025 3:42 AM EDT [facility] Immature Granulocytes Absolute 0.06 0.00 - 0.06 10*3/uL LAB HEMATOLOGY METHOD 02/25/2025 3:42 AM EDT [facility] Blood Venous blood specimen / Unknown Venipuncture / Unknown 02/25/2025 3:18 AM EDT 02/25/2025 3:40 AM EDT Narrative [facility] - 02/25/2025 3:42 AM EDT Therapeutic decision making should be based on absolute values, rather than percentages. us Franco Guillory MD LAB BLOOD ORDERABLES Final Res ult [facility] [address] [place] [address] documented in this encounter Visit Diagnoses Diagnosis [...] PRN, Starting on 02/26/25 at 0947, Until Wed02/26/25 at 1044, Routine New Bag 02/26/2025 9:47 [...] Mayelin Dorsey RN)2030 (Given - Provider: Marsha Miranda RN) 0836 [...] externally, Every 24 hours, First dose on 02/25/25 at 1340, Until Discontinued, Administer over 12 Hours, Routine 0927 (Medication Removed - Provider: Mayelin Dorsey RN)2030 (Medication Applied - Provider: Marsha Miranda RN) 0836 (Medication Removed - Provider: Gallo Bhatt RN)211 (Medication Applied - Provider: Gulshan Toney RN) 0831 (Medication Removed - Provider: Gallo Bhatt RN) methocarbamol (Robaxin) tablet 750 mg 750 mg, Oral, 4 times daily, First dose on 02/25/25 at 1400, Until Discontinued, Routine 0925 (Given [...] 0425, Until Discontinued, Routine 0334 (Return to Pending Sale To [facility] - Provider: Yared Cartwright RN)1814 (Given [...] between acetaminophen and ibuprofen for mild pain 2237 (Given - Provider: Gulshan Toney RN) oxyCODONE [...] Miranda RN)0839 (Given - Provider: Gallo Bhatt, SEBASTIAN)1633 (Given - Provider: Gallo Bhatt, RN)2237 (Given [...] documented as of this encounter Care Teams Dedicated Regional Driver Relationship Specialty Start Date End Date Pcp, No [address] [place] [address] PCP - General Family Medicine 02/25/25 documented as of this encounter
--- OUTSIDE RECORDS SUMMARY | 2025-03-08 14:00 | XMS_ITS | Encounter Summary ---
Author Organization Healthcare Address [address] [place] [address] Care Team Providers Care Prepared Foods Service Team Member Name Role Phone Pcp, No Primary Care Provider Unavailvidal e Francisco Javier Eller MD Unavailable [phone] Encounter Details Date Type Department Care Team (Late st Contact Info) Description 03/08/2025 2:00 PM EDT Office Visit [place] [facility] Cardi[facility] [address], [address] [place] [address] Keny Tristan MD [address] [facility] [address] [place] [address] Sternal wound dehiscence, initial encounter [...] any time in the past 12 m [facility], were you homeless or living in a fpc (including now)? No 02/27/2025 Utilities Answer Date Recorded In the past 12 months has th e [employer], gas, oil, or water company threatened to [...] 2:00 PM EDT Wound Vac Chnage (CPT 18203) Performed by: AGNIESZKA Resendiz Consent: Consent obtained: [...] Description 03/26/2025 11:40 AM EDT Office Visit [facility] Cardiothoracic [address], [address] [place] [address] Sherlyn Cisse MD [address] [place] [address] 03/27/2025 9:00 AM EDT Office Visit [address] [address] Keny Chin MD [address] [place] [address] 04/10/2025 9:00 AM EDT Office Visit [address] [address] Leela Chin MD [address] [place] [address] documented as of this encounter Visit Diagnoses Diagnosis Sternal wound dehiscence, initial encounter- Primary documented in this encounter Additional Health Concerns Assessment Noted Time A Body Mass Index follow-up plan has been documented for the patient 03/08/2025 1:43 PM EDT documented as of this encounter Care Teams Prepared Foods Service Team Member Relationship Specialty Start Date End Date Pcp, [place] [address] PCP - General Family Medicine 02/25/25 Francisco Javier Eller MD [facility] [place] [address] Senior Electrical Estimator 03/02/25 documented as of this encounter
--- OUTSIDE RECORDS SUMMARY | 2025-03-12 09:40 | XMS_ITS | Encounter Summary ---
Author Organization Healthcare Address [address] [place] [address] Care Team Providers Care Certified Neurodiagnostic Technologist Name Role Phone Pcp, No Primary Care Provider Unavailvidal e Francisco Javier Eller MD Unavailable [phone] Encounter Details Date Type Department Care Team (Late st Contact Info) Description 03/12/2025 9:40 AM EDT Office Visit [facility] [address] [place] [address] Sherlyn Cisse MD [address] [place] [address] Sternal wound dehiscence, initial encounter [...] any time in the past 12 m [facility], were you homeless or living in a half-way (including now)? No 02/27/2025 Utilities Answer Date [...] VAC change again on WednesdayMarch 14 in [facility]. Hisnext appointment to see us in the clinic is on March 26. I have asked he bring a wound VAC sponge and dressing kit with him at the time of that appointment so that we can take it down look at the progress of wound healing and reapply. 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 documented in this encounter Plan of Treatment Upcoming Encounters Date Type Department Care Team (Late st Contact Info) Description 03/26/2025 11:40 AM EDT Office Visit [facility] Cardiothoracic [address] [place] [address] Sherlyn Cisse MD [address] [facility] [address] [place] [address] 03/27/2025 9:00 AM EDT Office Visit [address] [place] [address] Keny Chin MD [address] [facility] [address] [place] [address] 04/10/2025 9:00 AM EDT Office Visit [facility] [address] [place] [address] Leela Chin MD [address] [facility] [address] [place] [address] documented as of this encounter Visit Diagnoses Diagnosis Sternal wound dehiscence, initial encounter- Primary documented in this encounter Additional Health Concerns Assessment Noted Time A fall risk assessment has been complete d for the patient 03/12/2025 10:07 AM EDT A Body Mass Index follow-up plan has been documented for the patient 03/12/2025 10:37 AM EDT documented as of this encounter Care Teams Certified Neurodiagnostic Technologist Relationship Specialty Start Date End Date Pcp, [place] [address] PCP - General Family Medicine 02/25/25 Francisco Javier Eller MD [facility] [place] [address] Financial Agent 03/02/25 documented as of this encounter
[2025-03-19 09:32] VITALS: BMI 33.3
--- OUTSIDE RECORDS SUMMARY | 2025-03-19 09:32 | XMS_ITS | Encounter Summary ---
Author Organization Healthcare Address [address] [place] [address] Care Team Providers Care Production Supervisor Trainee Name Role Phone Pcp, No Primary Care Provider Unavailabl e Francisco Javier Eller MD Unavailable Encounter Details Date Type Department Care Team (Late st Contact Info) Description 03/14/2025 Orders Only Cardiothoracic Surgery [address] [place] [address] Indra Mcintosh M, TECH BRAZER TESTER [address] [place] [address] Social History Tobacco Use Types Packs/Day Years [...] any time in the past 12 m [facility], were you homeless or living in a intermediate (including now)? No 02/27/2025 Utilities Answer Date [...] Description 03/26/2025 11:40 AM EDT Office Visit [place] [facility] [address], [facility] [address] [place] [phone] Sherlyn Cisse MD [address] [facility] [address] [place] [phone] 03/27/2025 9:00 AM EDT Office Visit [facility] [address] [place] [address] Keny Chin MD [address] [facility] [address] [place] [phone] 04/10/2025 9:00 AM EDT Office Visit [facility] [address] [place] [address] Leela Chin MD [address] [facility] [address] [place] [address] documented as of this encounter Visit Diagnoses Not on filedocumented in this encounter Additional Health Concerns Assessment Noted Time A fall risk assessment has been complete d for the patient 03/12/2025 10:07 AM EDT A Body Mass Index follow-up plan has been documented for the patient 03/12/2025 10:37 AM EDT documented as of this encounter Care Teams Production Supervisor Trainee Relationship Specialty Start Date End Date P[place], [place] [address] PCP - General Family Medicine 02/25/25 Francisco Javier Eller MD [facility] [place] [address] Nursing Home Admissions Director 03/02/25 documented as of this encounter
--- OUTSIDE RECORDS SUMMARY | 2025-03-19 09:32 | XMS_ITS | Encounter Summary ---
Author Organization Healthcare Address [address] [place] [address] Care Team Providers Care Sharepoint Consultant Name Role Phone Pcp, No Primary Care [...] time in the past 12 m [facility], were you homeless or living in a fci (including now)? No 02/27/2025 Utilities Answer Date Recorded In the past 12 months has [employer] electric, gas, oil, or water company threatened [...] Description 03/26/2025 11:40 AM EDT Office Visit [place] [facility] [address] [place] [address] Sherlyn Cisse MD [address] [place] [address] 03/27/2025 9:00 AM EDT Office Visit [facility] [address] [place] [address] Keny Chin MD [address] [facility] [address] [place] [address] 04/10/2025 9:00 AM EDT Office Visit [facility] [address] [place] [address] Leela Chin MD [address] [facility] [address] [place] [address] documented as of this encounter Visit Diagnoses Not on filedocumented in this encounter Additional Health Concerns Assessment Noted Time A Body Mass Index follow-up plan has been documented for the patient 03/06/2025 9:43 AM EDT documented as of this encounter Care Teams Sharepoint Consultant Relationship Specialty Start [place] [address] PCP - General Family Medicine 02/25/25 documented as of this encounter
--- OUTSIDE RECORDS SUMMARY | 2025-03-19 09:32 | XMS_ITS | Encounter Summary ---
Author Organization Healthcare Address [address] [place] [address] Care Team Providers Care Engraver Flatware Name Role Phone Pcp, No Primary Care Provider Unavailvidal e Francisco Javier Eller MD Unavailable [phone] Encounter Details Date Type Department Care Team (Late st Contact Info) Description 03/07/2025 Telephone [facility] Inpatient [address] [place] [address] Barbara Martins CV TELE-PROGRESSIVE Social History Tobacco [...] any time in the past 12 m [facility], were you homeless or living in a care home (including now)? No 02/27/2025 Utilities Answer [...] Description 03/26/2025 11:40 AM EDT Office Visit [place] [facility] [address] [place] [address] Sherlyn Cisse MD [address] [facility] [address] [place] [address] 03/27/2025 9:00 AM EDT Office Visit [address] [phone] Keny Chin MD [address] [place] [address] [address] [place] [address] 04/10/2025 9:00 AM EDT Office Visit [address] [phone] Leela Chin MD [address] [place] [address] [address] [place] [address] documented as of this encounter Visit Diagnoses Not on filedocumented in this encounter Additional Health Concerns Assessment Noted Time A Body Mass Index follow-up plan has been documented for the patient 03/07/2025 8:32 AM EDT documented as of this encounter Care Teams Engraver Flatware Relationship Specialty Start Date End Date Pcp, [place] [address] PCP - General Family Medicine 02/25/25 Francisco [facility] [place] [address] Business Analyst 03/02/25 documented as of this encounter
--- OUTSIDE RECORDS SUMMARY | 2025-03-19 09:32 | XMS_ITS | Encounter Summary ---
Author Organization Healthcare Address [address] [place] [address] Care Team Providers Care Counter Stacker Name Role Phone Pcp, No Primary Care [...] Description 03/26/2025 11:40 AM EDT Office Visit [facility] [address], [address] [place] [address] Sherlyn Cisse MD [address] [place] [address] 03/27/2025 9:00 AM EDT Office Visit [facility] [address] [place] [address] [place] [address] [place] [address] [address] [place] [address] 04/10/2025 9:00 AM EDT Office Visit [address] [address] Leela Chin MD [address] [place] [phone] documented as of this encounter Visit Diagnoses Not on filedocumented in this encounter Additional Health Concerns Assessment Noted Time A Body Mass Index follow-up plan has been documented for the patient 03/06/2025 9:43 AM EDT documented as of this encounter Care Teams Counter Stacker Relationship Specialty Start Date End Date Pcp, [place] [address] PCP - General Family Medicine 02/25/25 documented as of this encounter
--- OUTSIDE RECORDS SUMMARY | 2025-03-19 09:32 | XMS_ITS | Encounter Summary ---
Author Organization Healthcare Address [address] [place] [address] Care Team Providers Care Laundromat Manager Name Role Phone Pcp, No Primary Care Provider Unavailvidal e Francisco Javier Eller MD Unavailable [phone] Encounter Details Date Type Department Care Team (Late st Contact Info) Description 03/07/2025 Clinical Support [facility] [address] [place] [address] Saul Bey, PharmD [address] [id number] Social History Tobacco Use Types Packs/Day Years [...] Description 03/26/2025 11:40 AM EDT Office Visit [facility] [address], [address] [place] [address] Sherlyn Cisse MD [address] [facility] [address] [place] [address] 03/27/2025 9:00 AM EDT Office Visit [facility] [address] [place] [address] Keny Chin MD [address] [facility] [address] [place] [address] 04/10/2025 9:00 AM EDT Office Visit [facility] [address] [place] [address] Leela Chin MD [address] [facility] [address] [place] [address] documented as of this encounter Visit Diagnoses Not on filedocumented in this encounter Additional Health Concerns Assessment Noted Time A Body Mass Index follow-up plan has been documented for the patient 03/07/2025 8:32 AM EDT documented as of this encounter Care Teams Laundromat Manager Relationship Specialty Start Date End Date Pcp, [place] [address] PCP - General Family Medicine 02/25/25 Francisco Javier Eller MD [address] [place] [address] Felt Coverer 03/02/25 documented as of this encounter
--- OUTSIDE RECORDS SUMMARY | 2025-03-19 09:32 | XMS_ITS | Encounter Summary ---
Author Organization Healthcare Address [address] [place] [address] Care Team Providers Care Enrollment Advisor Name Role Phone Pcp, No Primary Care Provider Francisco Javier Mendez MD Unavailable [phone] Encounter Details Date Type Department Care Team (Late st Contact Info) Description 02/25/2025 Patient Outreach [facility] [address] [place] [address] Gavin Vargas Social History Tobacco [...] Description 03/26/2025 11:40 AM EDT Office Visit [place] [facility] [address], [address] [place] [address] Sherlyn Cisse MD [address] [place] [address] 03/27/2025 9:00 AM EDT Office Visit [facility] [address] [place] [address] Keny Chin MD [address] [facility] [address] [place] [address] 04/10/2025 9:00 AM EDT Office Visit [facility] [address] [place] [address] Leela Chin MD [address] [facility] [address] [place] [address] documented as of this encounter Visit Diagnoses Not on filedocumented in this encounter Additional Health Concerns Assessment Noted Time A Body Mass Index follow-up plan has been documented for the patient 03/06/2025 9:43 AM EDT documented as of this encounter Care Teams Enrollment Advisor Relationship Specialty Start Date End Date Pcp, [place] [address] PCP - General Family Medicine 02/25/25 Francisco Javier Eller MD [facility] [place] [address] Belting And Webbing Inspector 03/02/25 documented as of this encounter
--- OUTSIDE RECORDS SUMMARY | 2025-03-19 09:32 | XMS_ITS | Encounter Summary ---
Author Organization [facility] Address [address] [place] [address] Care Team Providers Care Solar Installer Name Role Phone Pcp, No Primary Care Provider Unavailvidal e Francisco Javier Eller MD Unavailable [phone] Encounter Details Date Type Department Care Team (Late st Contact Info) Description 03/12/2025 Telephone [facility] [address], [address] [place] [address] Leela Ayala RN [id number] [address] [phone] Social History Tobacco Use Types Packs/Day Years [...] in the past 12 m [facility], were you homeless or living in a [...] encounter Miscellaneous Notes * Telephone Encounter - Leela Ayala RN - 03/12/2025 2:33 PM EDT Notified pharmacist everardo for [place] with Suboxone Reviewed with Rogerio Carty APRN, ok for both meds. documented in this encounter Plan of Treatment Upcoming Encounters Date Type Department Care Team (Late st Contact Info) Description 03/26/2025 11:40 AM EDT Office Visit [facility] [address], [address] [place] [address] Sherlyn Cisse MD [address] [place] [address] 03/27/2025 9:00 AM EDT Office Visit [facility] [address] [place] [address] [place] [address] [place] [address] [address] [place] [address] 04/10/2025 9:00 AM EDT Office Visit [facility] [address] [place] [address] [place] [address] [place] [address] documented as of this encounter Visit Diagnoses Not on filedocumented in this encounter Additional Health Concerns Assessment Noted Time A fall risk assessment has been complete d for the patient 03/12/2025 10:07 AM EDT A Body Mass Index follow-up plan has been documented for the patient 03/12/2025 10:37 AM EDT documented as of this encounter Care Teams Solar Installer Relationship Specialty Start Date End Date Pcp, [place] [address] PCP - General Family Medicine 02/25/25 Francisco Javier Eller MD [address] [place] [address] Locomotive Engineer Electric 03/02/25 documented as of this encounter
--- OUTSIDE RECORDS SUMMARY | 2025-03-19 09:32 | XMS_ITS | Encounter Summary ---
Author Organization Healthcare Address [address] [place] [address] Care Team Providers Care Fire Alarm Mechanic Name Role Phone Pcp, No Primary Care Provider Unavailabl e Encounter Details Date Type Department Care Team (Late st Contact Info) Description 02/24/2025 Orders Only External Location [address] [place] [phone] Provider, External Social History Tobacco Use Types [...] any time in the past 12 m [facility], were you homeless or living in a chcf (including now)? No 02/27/2025 Utilities Answer Date Recorded In the past 12 months has th e [employer], gas, oil, or water company threatened to [...] Behavior (Lifetime) No 8:00 PM EDT Virginia Clarso, RN documented as of this encounter Plan of Treatment Upcoming Encounters Date Type Department Care Team (Late st Contact Info) Description 03/26/2025 11:40 AM EDT Office Visit [facility] [address], [address] [place] [address] Sherlyn Cisse MD [address] [place] [address] 03/27/2025 9:00 AM EDT Office Visit [address] [phone] Keny Chin MD [address] [facility] [address] [place] [address] 04/10/2025 9:00 AM EDT Office Visit [facility] [address] [place] [address] Leela Chin MD [address] [facility] [address] [place] [address] documented as of this encounter Procedures Procedure [...] on filedocumented in this encounter Care Teams Fire Alarm Mechanic Relationship Specialty Start Date End Date Pcp, [place] [address] PCP - General Family Medicine 02/25/25 documented as of this encounter
--- OUTSIDE RECORDS SUMMARY | 2025-03-19 09:33 | XMS_ITS | Encounter Summary ---
Author Organization Healthcare Address [address] [place] [address] Care Team Providers Care Communications Assistant Name Role Phone Pcp, No Primary [...] time in the past 12 m [facility], were you homeless or living in a mcfp (including now)? No 02/27/2025 Utilities Answer Date Recorded In the past [address], gas, oil, or water [employer] threatened to shut off services in [...] Description 03/26/2025 11:40 AM EDT Office Visit [facility] [address], [address] [place] [address] Sherlyn Cisse MD [address] [place] [address] 03/27/2025 9:00 AM EDT Office Visit [facility] [address] [place] [address] Keny Chin MD 3101 [facility] [address] [place] [address] 04/10/2025 9:00 AM EDT Office Visit [facility] [address] [place] [address] Leela Chin MD [address] [address] documented as of this encounter Visit Diagnoses Not on filedocumented in this encounter Additional Health Concerns Assessment Noted Time A Body Mass Index follow-up plan has been documented for the patient 03/06/2025 9:43 AM EDT documented as of this encounter Care Teams Communications Assistant Relationship Specialty Start Date End Date Pcp, Heaven [address] [place] [address] PCP - General Family Medicine 02/25/25 documented as of this encounter
--- OUTSIDE RECORDS SUMMARY | 2025-03-19 09:33 | XMS_ITS ---
Author Organization [facility] Address [address] [place] [address] Care Team Providers Care Cable Lacer Name Role Phone Pcp, No Primary Care Provider UnavailFrancisco Javier Perez MD Unavailable [phone] Hepatitis C Program Status:Closed (Closed) Start date:02/25/2025 Enrollment reason:HCV End date:02/25/2025 Close reason:HCV RNA Negative Continued Care and Services Coordination
--- OUTSIDE RECORDS SUMMARY | 2025-03-19 09:33 | XMS_ITS | Clinical Summary ---
Author Organization [employer] Address [address] [place] [address] Care Team Providers Care Underground Mine Superintendent Name Role Phone Subha Cates MD Primary Care Provider Francisco Javier Eller MD Unavailable [phone] Khalida Gustafson MD Unavailable Allergies No known active allergies Medications buprenorphine-na loxone (SUBOXONE) 8-[address] 2 films under the tongue daily. 11/14/2024 Active Active Problems Problem Noted Date Diagnosed Date Drainage from wound 12/29/2024 Hepatitis C Chest pain Presence of prosthetic heart valve Encounters Date Type Department Care Team Description 01/23/2025 Telephone [facility] Cardiothoracic Surgery [address] [address] Mita Myles CMA Follow up appt (Needs CT Chest and Follow up appt.) 01/09/2025 9:30 AM EDT Office Visit [facility] Cardiothoracic Surgery [address] [address] Khalida Gustafson MD Drainage from wound (Primary Dx) 01/04/2025 Orders Only [facility] Cardiothoracic Surgery [address] [address] Provider, MD Dom from Last [...] on file 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
--- OUTSIDE RECORDS SUMMARY | 2025-03-19 09:33 | XMS_ITS | Encounter Summary ---
Author Organization [employer] Address [address] [facility] [place] [address] Care Team Providers Care Straightening Press Operator Name Role Phone Subha Cates MD Primary Care Provider Francisco Javier Eller MD Unavailable [phone] Khalida Gustafson MD Unavailable [phone] Reason for Visit * Reason Onset Date Comments Follow up appt 01/23/[address] Chest a nd Follow up appt. 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 She stated patient has been working out [...] on filedocumented in this encounter Care Teams Straightening Press Operator Relationship Specialty [place] [address] [place] [address] PCP - General Family Medicine 11/21/24 Francisco Javier Eller MD [address] [place] [address] [place] [address] Tangled Yarn Spool Straightener Cardiology 11/21/24 Khalida Gustafson MD [address] [facility] [address] [place] [address] Surgeon Cardiothoracic Surgery 01/09/25 documented as of this encounter
--- OUTSIDE RECORDS SUMMARY | 2025-03-19 09:33 | XMS_ITS | Encounter Summary ---
Author Organization [facility] Address [address] [place] [address] Care Team Providers Care Service Now Developer Name Role Phone Pcp, No Primary Care Provider Unavailvidal e Francisco Javier Eller MD Unavailable [phone] Encounter Details Date Type Department Care Team (Late st Contact Info) Description 03/14/2025 Telephone [facility] [address] [place] [address] Leela Ayala RN [facility]OSPITAL L[facility]G [id number] [address] [id number] Social History Tobacco Use Types Packs/Day Years [...] any time in the past 12 m [facility], were you homeless or [...] Telephone Encounter - Leela Ayala RN - 03/14/2025 2:21 PM EDT Pt requests refill Robaxin, reviewed with Chelle Coppola APRN, refill sent . Pt updated documented in this encounter Plan of Treatment Upcoming Encounters Date Type Department Care Team (Late st Contact Info) Description 03/26/2025 11:40 AM EDT Office Visit [facility] [address] [place] [address] Sherlyn Cisse MD [address] [place] [address] 03/27/2025 9:00 AM EDT Office Visit [facility] [address] [place] [address] [place] [address] [place] [address] [address] [place] [address] 04/10/2025 9:00 AM EDT Office Visit [facility] [address] [place] [address] Leela Chin MD [address] [place] [address] documented as of this encounter Visit Diagnoses Not on filedocumented in this encounter Additional Health Concerns Assessment Noted Time A fall risk assessment has been complete d for the patient 03/12/2025 10:07 AM EDT A Body Mass Index follow-up plan has been documented for the patient 03/12/2025 10:37 AM EDT documented as of this encounter Care Teams Service Now Developer Relationship Specialty Start Date End Date Pcp, [place] [address] PCP - General Family Medicine 02/25/25 Francisco Javier Eller MD [address] [place] [address] Manager Farm 03/02/25 documented as of this encounter
--- OUTSIDE RECORDS SUMMARY | 2025-03-19 09:33 | XMS_ITS | Referral Summary ---
Author Organization [employer] Address [address] [place] [address] Care Team Providers Care Case Management Associate Name Role Phone Subha Cates MD Primary Care Provider Francisco Javier Eller MD Unavailable [phone] Khalida Gustafson MD Unavailable [phone] Encounters Date Type Department Care Team Description 01/23/2025 Telephone [facility] Cardiothoracic Surgery [address] [address] Mita Myles CMA Follow up appt (Needs CT Chest and Follow up appt.) 01/09/2025 9:30 AM EDT Office Visit [facility] Cardiothoracic Surgery [address] [address] Khalida Gustafson MD Drainage from wound (Primary Dx) 01/04/2025 Orders Only [facility] Cardiothoracic Surgery [address] [address] ProviderDom MD from Last 3 [...] on file 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
--- OUTSIDE RECORDS SUMMARY | 2025-03-19 09:35 | XMS_ITS | Encounter Summary ---
Author Organization Healthcare Address [address] [place] [address] Care Team Providers Care Show Horse Driver Name Role Phone Pcp, No Primary Care Provider Francisco Javier Mendez MD Unavailable [phone] Encounter Details Date Type Department Care Team [...] any time in the past 12 m [facility], were you homeless or living in a halfway (including now)? No 02/27/2025 Utilities Answer Date [...] Description 03/26/2025 11:40 AM EDT [facility] [address], [facility] [address] [place] [address] Sherlyn Cisse MD [address] [place] [address] 03/27/2025 9:00 AM EDT Office Visit [address] [phone] Keny Chin MD [address] [place] [address] 04/10/2025 9:00 AM EDT Office Visit [address] [address] Leela Chin MD [address] [place] [address] documented as of this encounter Visit Diagnoses Not on filedocumented in this encounter Additional Health Concerns Assessment Noted Time A fall risk assessment has been complete d for the patient 03/12/2025 10:07 AM EDT A Body Mass Index follow-up plan has been documented for the patient 03/12/2025 10:37 AM EDT documented as of this encounter Care Teams Show Horse Driver Relationship Specialty Start Date End Date Pcp, Heaven [address] [place] [address] PCP - General Family Medicine 02/25/25 Francisco J[facility] Ell[facility] MD [facility] [place] [address] Commodity Merchant 03/02/25 documented as of this encounter
--- OUTSIDE RECORDS SUMMARY | 2025-03-19 09:35 | XMS_ITS | Clinical Summary ---
Author Organization [facility] Address [address] [place] [address] Care Team Providers Care Surtass Analyst Name Role Phone Pcp, No Primary Care Provider Unavailvidal e Francisco Javier Eller MD Unavailable [phone] Allergies No known active allergies Medications Buprenorphine [...] institutional policy. 1 each 025 2024 Active lidocaine (Lidoderm) 5 % patch Apply 1 patch topically 1 (one) time each day at the same time over 12 hours. Remove & discard patch within 12 hours or as directed by . 20 patch 025 Active naloxone (Narcan) 4 mg/0.1 mL nasal spray 1. Give 1 spray in nostril for no/slow breathing or cannot wake after opioid use 2. Call 911 3. Repeat in other nostril if symptoms continue 1 each 025 Active HYDROcodone-aceta minophen ([place]) 5-325 MG tablet Take 1 tablet by mouth every 6 hours as needed for moderate pain or severe pain. 80 tablet 025 2024 Active methocarbamol (Robaxin) 750 MG tablet Take 1 tablet by mouth 4 times a day. 40 tablet 025 Active lidocaine (Lidoderm) 5 % patch Apply [...] symptoms continue 1 each 025 2024 Discontinued oxyCODONE (Roxicodone) 5 MG immediate release tablet Take 2 tablets by mouth every 4 hours as needed for severe pain (For pain unrelieved by other interventions) for up to 3 days. 24 tablet 025 2024 Additional Information Patient not taking.Reported on 03/12/2025 methocarbamol (Robaxin) 750 MG tablet Take 1 tablet by mouth 4 times a day. 30 tablet 025 2024 Discontinued(R eorder) oxyCODONE (Roxicodone) 5 MG immediate release tablet Take 1 tablet by mouth every 8 hours as needed for severe pain (To be taken for wound vac changes.) for up to 3 days. 10 tablet 025 2024 Active Problems Problem Noted Date Diagnosed Date BMI 33.0-33.9,adult 03/12/2025 Chest pain 03/08/2025 Presence of prosthetic heart valve 03/08/2025 Hepatitis C 03/08/2025 Bacteremia due to Staphylococcus aureus 02/28/20 H/O tricuspid valve repair 02/27/2025 Opioid use disorder, severe, on maintenance ther apy 02/27/2025 Obesity due to excess calories without serious c omorbidity 02/27/2025 Sternal wound dehiscence, initial encounter 02/02 Chest wall abscess 02/25/2025 Drainage from wound 12/29/2024 Encounters Date Type Department Care Team Description 03/14/2025 Telephone [facility] Cardiothoracic [address], [address] [place] [address] Leela Ayala, RN 03/14/2025 Orders Only Cardiothoracic Surgery [address] [place] [address] Indra Mcintosh, SUPERVISOR STAVE CUTTING 03/12/2025 9:40 AM EDT Office Visit [facility] Cardiothoracic [address], [address] [place] [address] Sherlyn Cisse MD Sternal wound dehiscence, initial encounter (Primary Dx) 03/12/2025 Telephone [facility] Cardiothoracic [address], [address] [place] [phone] Leela Ayala RN 03/12/2025 Travel 03/08/2025 2:00 PM EDT Office Visit [facility] Cardiothoracic [address], [address] [place] [phone] Keny Tristan MD Sternal wound dehiscence, initial encounter (Primary Dx) 03/08/2025 Travel 03/07/2025 Telephone [facility] [address] [place] [address] Barbara Martins 03/07/2025 Clinical Support [facility] [address] [place] [address] Saul Bey, PharmD 02/27/2025 Travel 02/26/2025 9:00 AM EDT - 02/26/2025 11:30 AM EDT Surgery [facility] [address] [place] [address] Sherlyn Cisse MD CHEST WASHOUT, REMOVAL OF STERNAL PLATES 02/26/2025 8:43 AM EDT Anesthesia Event [facility] [address] [place] [address] Praneeth Jasmine MD Ram, Harish, MD 02/26/2025 Travel 02/25/2025 2:42 AM EDT - 03/06/2025 1:35 PM EDT Hospital Encounter [facility] [address] [place] [address] GuilloryFranco wolf MD Ogburn, Erinn A, MD Chest wall abscess (Primary Dx); Bacteremia due to Staphylococcus aureus Discharge Disposition: Home or Self Care 02/25/2025 Patient Outreach [facility] Medicine Specialties [address] [place] [address] Gavin Vargas 02/25/2025 Travel 02/24/2025 Orders Only External Location [address] [place] [address] Provider, External from Last 3 Months Immunizations Immunization Administration Dates Next Due iYogi COVID-19 Vaccine (Blue Cap) 18+ 01/08/20 21 [...] Description 03/26/2025 11:40 AM EDT Office Visit [facility] Cardiothoracic [address], [address] [place] [address] Sherlyn Cisse MD [address] [place] [address] 03/27/2025 9:00 AM EDT Office Visit [address] [address] Keny Chin MD [address] [place] [phone] 04/10/2025 9:00 AM EDT Office Visit [address] [address] Leela Chin MD [address] [place] [phone] Health Maintenance Due Date Last Done Comments [facility]-/Child/Adol SDOH Screenings 1988 [facility]-Varicella Vaccines (1 of [...] Td or Tdap) 04/16/2024 04/16/2014, 02/03/2013, 10/29/2011 [id number] Vaccine (2 - season) 2024 01/07/2021 [facility]-Influenza [...] Procedure Name Priority Date/Time Associated Diagnosis Comments CBC WITH AUTO DIFFERENTIAL Routine 03/12/2025 C-REACTIVE PROTEIN, PLASMA Routine 03/12/2025 UREA NITROGEN, PLASMA Routine 03/12/2025 CREATININE, PLASMA Routine 03/12/2025 INSERT PICC LINE Routine 03/04/2025 4:49 PM [...] ANESTHESIA PLACEHOLDER Routine 02/26/2025 8:53 AM EDT NM AN ELECTIVE ENDOTRACHEAL AIRWAY Routine 02/26/2025 8:53 [...] EDT from Last 3 Months Results * Creatinine, Plasma (03/12/2025) Pathologist [facility] External Creatinine Blood 0.9 mg/dL Blood Venous blood specimen / Unknown 03/12/2025 us Historical Provider LAB BLOOD ORDERABLES Diandra l Result * CBC and Differential (03/12/2025) Only the most recent of3 resultswithin the time period is included. External WBC 7.6 4.8 - 10.8 K/mm3 External Red Blood Cell (RBC) 5.21 External Hemoglobin (Hgb) 14.70 External Hematocrit (Hct) 45.3 External Platelet Count (Plt) 245 External Neutrophil Abs 5.8 External Lymphocyte-Absol eufemia 1.2 External Monocyte Absolute 0.4 External Eos-Absolute 0.1 Blood Venous blood specimen / Unknown 03/12/2025 [facility] Provider MD LAB BLOOD ORDERABLES Diandra l Result * (ABNORMAL) C-Reactive Protein, Plasma (03/12/2025) Only the most recent of2 resultswithin the time period is included. External C-Reactive Protein(CRP) 11.7(A) 0 - 4 mg/L Blood Venous blood specimen / Unknown 03/12/2025 [facility] Provider MD LAB BLOOD ORDERABLES Diandra l Result * Urea Nitrogen, Plasma (03/12/2025) External BUN 14 Blood Venous blood specimen / Unknown 03/12/2025 [facility] Provider MD LAB BLOOD ORDERABLES Diandra l Result * PICC SINGLE LUMEN (SMARTFORM LINK) (03/04/2025 4:49 PM EDT) Narrative Maxwell Roper RN - 03/04/2025 4:49 PM EDT Maxwell Roper RN 03/04/2025 4:50 PM Insert PICC line Date/Time: 03/04/2025 4:49 PM Performed by: Maxwell Roper, RN Authorized by: Sherlyn Cisse MD [place] Protocol: Verbal consent obtained?: Yes Written consent [...] vein Patient position: Flat Catheter Lot #: [id number] Catheter inventory technician: [employer] Catheter placed: Single lumen Catheter size: 4 Fr Catheter trimmed length: 51 Catheter threaded length: 51 Vein placed in: SVC Catheter cm indwellin Catheter cm outside: 0 Placement confirmed by: [employer] 3CG technology Pre-procedure: Landmarks identified Ultrasound guidance: [...] pertinent images were uploaded to PACS. Sherlyn Cisse MD IV THERAPY ORDERABLES Final Re sult * Morphology (03/03/2025 2:11 AM EDT) Pathologist [facility] RBC Morphology RBC Morphology Consistent with Indices and RDW LAB HEMATOLOGY METHOD 03/03/2025 3:14 AM EDT [facility] Platelet Estimate Platelet smear estimate consistent with automated count LAB HEMATOLOGY METHOD 03/03/2025 3:14 AM EDT [facility] Blood Venous blood specimen / Unknown Venipuncture / Unknown 03/03/2025 2:11 AM EDT 03/03/2025 2:25 AM EDT Kelsie Carty APRN LAB BLOOD ORDERABLES Final R esult [facility] [address] [place] [address] * (ABNORMAL) Manual Differential (03/03/2025 2:11 AM EDT) Pathologist [facility] Blasts % 0 % LAB HEMATOLOGY METHOD 03/03/2025 3:14 AM EDT [facility] Promyelocytes % 0 % LAB HEMATOLOGY METHOD 03/03/2025 3:14 AM EDT [facility] Myelocytes % 2 % LAB HEMATOLOGY METHOD 03/03/2025 3:14 AM EDT [facility] Metamyelocytes % 3 % LAB HEMATOLOGY METHOD 03/03/2025 3:14 AM EDT [facility] Neutrophils % 75 % LAB HEMATOLOGY METHOD 03/03/2025 3:14 AM EDT [facility] Lymphocytes % 14 % LAB HEMATOLOGY METHOD 03/03/2025 3:14 AM EDT [facility] Reactive Lymphocytes % 0 % LAB HEMATOLOGY METHOD 03/03/2025 3:14 AM EDT [facility] Monocytes % 3 % LAB HEMATOLOGY METHOD 03/03/2025 3:14 AM EDT [facility] Eosinophils % 3 % LAB HEMATOLOGY METHOD 03/03/2025 3:14 AM EDT [facility] Basophils % 0 % LAB HEMATOLOGY METHOD 03/03/2025 3:14 AM EDT [facility] Blasts Absolute 0.00 10*3/UL LAB HEMATOLOGY METHOD 03/03/2025 3:14 AM EDT [facility] Promyelocytes Absolute 0.00 10*3/uL LAB HEMATOLOGY METHOD 03/03/2025 3:14 AM EDT [facility] Myelocytes Absolute 0.21 10*3/uL LAB HEMATOLOGY METHOD 03/03/2025 3:14 AM EDT [facility] Metamyelocytes Absolute 0.31 10*3/uL LAB HEMATOLOGY METHOD 03/03/2025 3:14 AM EDT [facility] Neutrophils Absolute 7.72(H) 1.60 - 6.10 10*3/uL LAB HEMATOLOGY METHOD 03/03/2025 3:14 AM EDT [facility] Lymphocytes Absolute 1.44 1.20 - 3.90 10*3/uL LAB HEMATOLOGY METHOD 03/03/2025 3:14 AM EDT [facility] Reactive Lymphocytes Absolute 0.00 10*3/uL LAB HEMATOLOGY METHOD 03/03/2025 3:14 AM EDT [facility] Monocytes Absolute 0.31 0.30 - 0.90 10*3/uL LAB HEMATOLOGY METHOD 03/03/2025 3:14 AM EDT [facility] Eosinophils Absolute 0.31 0.00 - 0.50 10*3/uL LAB HEMATOLOGY METHOD 03/03/2025 3:14 AM EDT [facility] Basophils Absolute 0.00 0.00 - 0.10 10*3/uL LAB HEMATOLOGY METHOD 03/03/2025 3:14 AM EDT [facility] Blood Venous blood specimen / Unknown Venipuncture / Unknown 03/03/2025 2:11 AM EDT 03/03/2025 2:25 AM EDT Kelsie Carty APRN LAB BLOOD ORDERABLES Final R esult Performing Organization Address City/[facility]/ZIP Co de Phone Number [facility] [address] [place] [address] * Blood Culture (Aerobic/Anaerobet Set) (03/03/2025 2:11 AM EDT) Only the most recent of8 resultswithin the time period is included. Culture No growth at day 5 GEENA 03/08/2025 4:02 AM EDT [facility] Blood Structure of antecubital vein / Unknown Venipuncture / Unknown 03/03/2025 2:11 AM EDT 03/03/2025 3:04 AM EDT Narrative [facility] - 03/08/2025 4:02 AM EDT Low blood volume submitted, results may be compromised us Kelsie Carty APRN LAB MICROBIOLOGY - GENERAL O RDERABLES Final Result Performing Organization Address City/[facility]/ZIP Co de Phone Number [facility] [address] [place] [address] * Magnesium, Plasma (03/03/2025 2:11 AM EDT) Only the most recent of3 resultswithin the time period is included. Magnesium, Plasma 2.2 1.9 - 2.4 mg/dL 03/03/2025 2:55 AM EDT [facility] Blood Venous blood specimen / Unknown Venipuncture / Unknown 03/03/2025 2:11 AM EDT 03/03/2025 2:23 AM EDT us Kelsie Carty APRN LAB BLOOD ORDERABLES Final R esult [facility] [address] [place] [address] * (ABNORMAL) Hepatic function panel (03/03/2025 2:11 AM EDT) Conjugated Bilirubin, Plasma <0.2 <=0.3 mg/dL 03/03/2025 2:55 AM EDT [facility] Comment:Hemolyzed, result ma y be falsely decreased. Alkaline Phosphatase, Plasma 99 40 - 115 U/L 03/03/2025 2:55 AM EDT [facility] Total Bilirubin, Plasma 0.3 0.2 - 1.1 mg/dL 03/03/2025 2:55 AM EDT [facility] Albumin, Plasma 3.3(L) 3.5 - 5.2 g/dL 03/03/2025 2:55 AM EDT [facility] Total Protein 7.9 6.3 - 7.9 g/dL 03/03/2025 2:55 AM EDT [facility] ALT, Plasma 36 10 - 50 U/L 03/03/2025 2:55 AM EDT [facility] AST, Plasma 46 10 - 50 U/L 03/03/2025 2:55 AM EDT [facility] Comment:Hemolyzed, result ma y be falsely increased. Blood Venous blood specimen / Unknown Venipuncture / Unknown 03/03/2025 2:11 AM EDT 03/03/2025 2:23 AM EDT us Kelsie Carty APRN LAB BLOOD ORDERABLES Final R esult [facility] [address] [place] [address] * (ABNORMAL) CBC W/O Differential (03/01/2025 3:55 AM EDT) Only the most recent of3 resultswithin the time period is included. WBC Count 7.81 3.70 - 10.30 10*3/uL LAB HEMATOLOGY METHOD 03/01/2025 4:12 AM EDT [facility] RBC Count 4.51(L) 4.60 - 6.10 10*6/uL LAB HEMATOLOGY METHOD 03/01/2025 4:12 AM EDT [facility] HGB 12.8(L) 13.7 - 17.5 g/dL LAB HEMATOLOGY METHOD 03/01/2025 4:12 AM EDT [facility] HCT 40.5 40.0 - 51.0 % LAB HEMATOLOGY METHOD 03/01/2025 4:12 AM EDT [facility] Platelet Count 292 155 - 369 10*3/uL LAB HEMATOLOGY METHOD 03/01/2025 4:12 AM EDT [facility] MCV 90 79 - 98 fL LAB HEMATOLOGY METHOD 03/01/2025 4:12 AM EDT [facility] MCH 28.4 26.0 - 32.0 pg LAB HEMATOLOGY METHOD 03/01/2025 4:12 AM EDT [facility] MCHC 31.6 30.7 - 35.5 g/dL LAB HEMATOLOGY METHOD 03/01/2025 4:12 AM EDT [facility] RDW 13.0 11.5 - 14.5 % LAB HEMATOLOGY METHOD 03/01/2025 4:12 AM EDT [facility] MPV 9.5 8.8 - 12.5 fL LAB HEMATOLOGY METHOD 03/01/2025 4:12 AM EDT [facility] nRBC 0.0 <=0.0 per 100 WBCs LAB HEMATOLOGY METHOD 03/01/2025 4:12 AM EDT [facility] Blood Venous blood specimen / Unknown Venipuncture / Unknown 03/01/2025 3:55 AM EDT 03/01/2025 4:04 AM EDT Catalina Cuba MD LAB BLOOD ORDERABLES Final Result [facility] [address] [place] [address] * (ABNORMAL) Basic metabolic panel (03/01/2025 3:55 AM EDT) Only the most recent of3 resultswithin the time period is included. Glucose, Plasma 94 74 - 99 mg/dL 03/01/2025 4:37 AM EDT [facility] BUN, Plasma 14 7 - 21 mg/dL 03/01/2025 4:37 AM EDT [facility] Creatinine, Plasma 0.92 0.70 - 1.20 mg/dL 03/01/2025 4:37 AM EDT [facility] BUN/Creatinine Ratio 15 03/01/2025 4:37 AM EDT [facility] Sodium, Plasma 140 136 - 145 mmol/L 03/01/2025 4:37 AM EDT [facility] Potassium, Plasma 4.4 3.6 - 4.9 mmol/L 03/01/2025 4:37 AM EDT [facility] Chloride, Plasma 105 97 - 107 mmol/L 03/01/2025 4:37 AM EDT [facility] CO2, Plasma 25 22 - 29 mmol/L 03/01/2025 4:37 AM EDT [facility] Anion Gap 10 6 - 16 mmol/L 03/01/2025 4:37 AM EDT [facility] Total Calcium, Plasma 8.8(L) 8.9 - 10.2 mg/dL 03/01/2025 4:37 AM EDT [facility] eGFRcr 110.6 mL/min/1.7 3m*2 03/01/2025 4:37 AM EDT [facility] Comment:Reported eGFRcr in m L/min/1.73m2 is based the CKD-EPI 2020 equation that does not use a race coefficient. Blood Venous blood specimen / Unknown Venipuncture / Unknown 03/01/2025 3:55 AM EDT 03/01/2025 4:04 AM EDT us Catalina Cuba MD LAB BLOOD ORDERABLES Final Result [facility] [address] [place] [address] * PERIPHERAL IV (SMARTFORM LINK) (02/27/2025 6:13 [...] regurgitation. Tricuspid Valve: The leaflets appear thickened. 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 There appears to be restricted [...] is no recent study available for direct [id number] comparison. Left Ventricle Based on the linear [...] stenosis. Tricuspid Valve The leaflets appear thickened. 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 There appears to be restricted [...] is no recent study available for direct yqvy-ji-ngza comparison. Wall Scoring Baseline Score Index: 1.00 [...] - 40.0 ug/mL 02/27/2025 11:21 AM EDT [facility] Blood Venous blood specimen / Unknown Venipuncture / Unknown 02/27/2025 10:46 AM EDT 02/27/2025 10:52 AM EDT Narrative [facility] - 02/27/2025 11:21 AM EDT Therapeutic Peak level: 20-40ug/mL Supra-therapeutic Peak level: >40 ug/mL us Alejandro Sandoval PA LAB BLOOD ORDERABLES Final R esult Performing Organization Address [facility]/ZIP Co de Phone Number [facility] [address] [place] [address] * Hemoglobin A1c (02/27/2025 4:33 AM EDT) Hemoglobin A1c 5.4 <5.7 % 02/27/2025 7:06 AM EDT [facility] Blood Venous blood specimen / Unknown Venipuncture / Unknown 02/27/2025 4:33 AM EDT 02/27/2025 4:45 AM EDT Narrative [facility] - 02/27/2025 7:06 AM EDT HA1C Interpretive Data: Diagnosis of Diabetes: Diabetic > or = 6.5% Pre-diabetic 5.7 to 6.4% Non-diabetic < or = 5.6% Glycemic Targets for Type I and Type II Diabetics: Non- Adults <7.0% Adults <6.0% Children and Adolescents <7.5% Source: [place] [employer]. Standards of medical care in diabetes,2017. Diabetes Care.2017:40 (suppl 1):S1-S135. Alejandro AARON LAB BLOOD ORDERABLES Final R esult Performing Organization Address [facility] Co de Phone Number [facility] [address] [place] [address] * (ABNORMAL) Lipid panel (02/27/2025 4:33 AM EDT) Cholesterol, Plasma 108 <200 mg/dL 02/27/2025 5:14 AM EDT [facility] Comment: Cholesterol Reference Range (age >17 years): Desirable <200 mg/dL Borderline 200 to 239 mg/dL Undesirable >239 mg/dL HDL 28(L) >=40 mg/dL 02/27/2025 5:14 AM EDT [facility] Comment: HDL Cholesterol Reference Ranges (age >17 years): Female, acceptable > or = 50 mg/dL Male, acceptable > or = 40 mg/dL Triglycerides, Plasma 94 <150 mg/dL 02/27/2025 5:14 AM EDT [facility] Comment: Triglyceride Reference Range (age >17 years): Desirable: <150 mg/dL Borderline high: 150 to 199 mg/dL High: 200 to 499 mg/dL Very high: >499 mg/dL Increased risk of pancreatitis: >1000 mg/dL Cholesterol/HDL Ratio 4 02/27/2025 5:14 AM EDT [facility] LDL, Calculated 62 <100 mg/dL 5:14 AM EDT [facility] Comment: LDL Cholesterol Reference Range [...] 12 hours? No 02/27/2025 5:14 AM EDT [facility] Blood Venous blood specimen / Unknown Venipuncture / Unknown 02/27/2025 4:33 AM EDT 02/27/2025 4:42 AM EDT us Alejandro AARON LAB BLOOD ORDERABLES Final R esult [facility] [address] [place] [address] * XR Chest 1 View (02/27/2025 2:37 [...] Culture Light Growth 03/01/2025 3:23 PM EDT [facility] Culture Staphylococcus aureus(A) GEENA 03/01/2025 3:23 PM EDT [facility] Foreign Body Bone structure of [...] ORD ERABLES Final Result Performing Organization Address City/[facility]/ZIP Co de Phone Number [facility] [address] [place] [address] * Anaerobic Culture (02/26/2025 10:10 AM EDT) Only the most recent of2 resultswithin the time period is included. Culture No anaerobes isolated 03/03/2025 5:50 AM EDT [facility] Foreign Body Bone structure of sternum / Unknown 02/26/2025 10:10 AM EDT 02/26/2025 11:21 AM EDT Comment:Pre-op diagnosis: Chest wall abscess [L02.213] Sherlyn Cisse MD LAB MICROBIOLOGY - GENERAL ORD ERABLES Final Result Performing Organization Address City/[facility]/ZIP Co de Phone Number [facility] [address] [place] [address] * (ABNORMAL) POCT arterial blood gas gem [...] - 17.5 g/dL 02/26/2025 9:44 AM EDT [facility] Hematocrit, Arterial 41.0 40 - 51.0 % 02/26/2025 9:44 AM EDT [facility] Sodium, Arterial 135(L) 136 - 145 mmol/L 02/26/2025 9:44 AM EDT [facility] Potassium, Arterial 4.1 3.6 - 4.9 mmol/L 02/26/2025 9:44 AM EDT [facility] Chloride, Whole Blood 104 97 - 107 mmol/L 02/26/2025 9:44 AM EDT [facility] Glucose, Arterial 106(H) 74 - 99 mg/dL 02/26/2025 9:44 AM EDT [facility] Ionized Calcium, Arterial 4.7 4.6 - 5.1 mg/dL 02/26/2025 9:44 AM EDT [facility] Lactate, Arterial 0.6 0.5 - 1.6 mmol/L 02/26/2025 9:44 AM EDT [facility] Body Temperature 37.0 Celsius 02/26/2025 9:44 AM EDT [facility] pH, Temp Corrected, Arterial 7.42 7.35 - 7.45 02/26/2025 9:44 AM EDT [facility] pCO2, Temp Corrected, Arterial 41 32 - 45 mm Hg 02/26/2025 9:44 AM EDT [facility] pO2, Temp Corrected, Arterial 105 83 - 108 mm Hg 02/26/2025 9:44 AM EDT [facility] Transportation Operations Manager ID Julian Carina 02/26/2025 9:44 AM EDT [facility] Blood, Arterial Whole blood specimen / Unknown 02/26/2025 9:42 AM EDT 02/26/2025 9:44 AM EDT us Sherlyn Cisse MD LAB POINT OF CARE TE ST DOCKED DEVICE UNSOLICITED RESULTS Final Result [facility] [address] [place] [address] * (ABNORMAL) Abscess Culture and Gram Stain (02/26/2025 9:34 AM EDT) Culture Light Growth 03/01/2025 3:22 PM EDT [facility] Culture Staphylococcus aureus(A) GEENA 03/01/2025 3:22 PM EDT [facility] Comment:The organism value f or this result has been updated. These results have been appended to the previously preliminary verified report. Gram Stain Result Few Polymorphonuclear leukocytes(A) 03/01/2025 3:22 PM EDT [facility] Gram Stain Result Few Gram positive cocci in pairs(A) 03/01/2025 3:22 PM EDT [facility] Swab Bone structure of sternum [...] GEENA <=1 ug/ml: Susceptible Staphylococcus aureus Minocycline GENEA <=1 ug/ml: Susceptible Staphylococcus aureus Oxacillin GEENA 0.5 ug/ml: Susceptible Staphylococcus aureus Penicillin G GEENA >1 ug/ml: Resistant Staphylococcus aureus Tetracycline GEENA <=0.5 ug/ml: Susceptible Staphylococcus aureus Trimethoprim/Sulfa methoxazo le GEENA <=0.5/9.5 ug/ml: Susceptible Staphylococcus aureus Vancomycin GEENA 1 ug/ml: Susceptible Sherlyn Cisse MD LAB MICROBIOLOGY - GENERAL ORD ERABLES Final Result [facility] [address] [place] [address] * Fungal Culture, Routine (02/26/2025 9:34 AM EDT) Culture No Fungal Growth at 1 Week 03/06/2025 9:03 AM EDT [facility] Swab Bone structure of sternum / Unknown 02/26/2025 9:34 AM EDT 02/26/2025 11:01 AM EDT Comment:Pre-op diagnosis: Chest wall abscess [L02.213] Sherlyn Cisse MD LAB MICROBIOLOGY - GENERAL ORD ERABLES Final Result [facility] [address] [place] [address] * PB ANESTHESIA NON-TIMED PROCEDURE PLACEHOLDER (02/26/2025 [...] MD ANESTHESIA ORDERABLES Final Res ult * NM AN ELECTIVE ENDOTRACHEAL AIRWAY, PB ANESTHESIA PLACEHOLDER [...] EDT 02/25/2025 5:14 PM EDT us Alejandro AAORN LAB BLOOD BANK TEST ORDERABL ES Final Result BLOOD BANK [address] [place] [address], * (ABNORMAL) Wound Culture and Gram Stain (02/25/2025 4:46 AM EDT) CULTURE READING WOUND Moderate Growth 02/27/2025 3:19 PM EDT [facility] CULTURE READING WOUND Staphylococcus aureus(A) GEENA 02/27/2025 3:19 PM EDT [facility] Comment:The organism value f or this result has been updated. These results have been appended to the previously preliminary verified report. Gram Stain Result Numerous Polymorphonuclear leukocytes(A) 02/27/2025 3:19 PM EDT [facility] Gram Stain Result Numerous Gram positive cocci in pairs(A) 02/27/2025 3:19 PM EDT [facility] Gram Stain Result Numerous Gram positive cocci in clusters(A) 02/27/2025 3:19 PM EDT [facility] Swab Skin structure / Unknown [...] ORD ERABLES Final Result Performing Organization Address [facility]/ZIP Co de Phone Number [facility] [address] [place] [address] * ED HIV 1/2 Antibody/Antigen Screen w/Reflex to HIV 1/2 Differentiation (02/25/2025 3:18 AM EDT) Pathologist [facility] HIV 1 & 2 Antibody/Antigen Screen Non Reactive Non Reactive 02/25/2025 4:35 AM EDT [facility] Comment:Screening for HIV 1 & 2 antibodies, and P24 antigen is NONREACTIVE. No confirmatory testing is required. Blood Venous blood specimen / Unknown Venipuncture / Unknown 02/25/2025 3:18 AM EDT 02/25/2025 3:53 AM EDT Franco Guillory MD LAB BLOOD ORDERABLES Final Res ult Performing Organization Address [facility] Co de Phone Number [facility] [address] [place] [address] * (ABNORMAL) Bacterial ID Gram Positive (02/25/2025 3:18 AM EDT) Staphylococcus Result Detected( A) Not Detected 02/26/2025 4:46 AM EDT [facility] Comment:Assess if contaminan t or clinically relevant pathogen. Consider clinical stability and immune status of patient. Blood Venous blood specimen / Unknown Venipuncture / Unknown 02/25/2025 3:18 AM EDT 02/25/2025 4:04 AM EDT Narrative [facility] - 02/26/2025 4:46 AM EDT [...] MICROBIOLOGY - GENERAL ORD ERABLES Final Result [facility] [address] [place] [address] * Hepatitis C Virus (HCV) Quantitative PCR - ED (02/25/2025 3:18 AM EDT) [facility] Hepatitis C Virus (HCV) Quantitative Interpretation Not Detected Not Detected. 02/27/2025 2:45 PM EDT [facility] Blood Venous blood specimen / Unknown Venipuncture / Unknown 02/25/2025 3:18 AM EDT 02/25/2025 3:53 AM EDT Narrative [facility] - 02/27/2025 2:45 PM EDT [...] ORDERABLES Final Res ult Performing Organization Address City/[facility]/[place] [address] * (ABNORMAL) Hepatitis C Antibody - ED (02/25/2025 3:18 AM EDT) Hepatitis C Antibody Positive(A ) Negative 02/25/2025 4:40 AM EDT [facility] Blood Venous blood specimen / Unknown Venipuncture / Unknown 02/25/2025 3:18 AM EDT 02/25/2025 3:53 AM EDT Franco Guillory MD LAB BLOOD ORDERABLES Final Res ult Performing Organization Address [facility] [place] [address] * (ABNORMAL) Sed rate, automated (02/25/2025 3:18 AM EDT) Pathologist [facility] Sedimentation Rate 65(H) <15 mm/hr 2024 3:54 AM EDT [facility] Blood Venous blood specimen / Unknown Venipuncture / Unknown 02/25/2025 3:18 AM EDT 02/25/2025 3:40 AM EDT Franco Guillory MD LAB BLOOD ORDERABLES Final Res ult Performing Organization Address City/[facility] Co de Phone Number [facility] [address] [place] [address] * Phosphorus (02/25/2025 3:18 AM EDT) Pathologist [facility] Phosphorus, Plasma 2.7 2.5 - 4.5 mg/dL 02/25/2025 4:23 AM EDT [facility] Blood Venous blood specimen / Unknown Venipuncture / Unknown 02/25/2025 3:18 AM EDT 02/25/2025 3:53 AM EDT us Franco Guillory MD LAB BLOOD ORDERABLES Final Res ult [facility] [address] [place] [address] * (ABNORMAL) CMP (02/25/2025 3:18 AM EDT) Glucose, Plasma 132(H) 74 - 99 mg/dL 02/25/2025 4:23 AM EDT [facility] BUN, Plasma 13 7 - 21 mg/dL 02/25/2025 4:23 AM EDT [facility] Creatinine, Plasma 0.86 0.70 - 1.20 mg/dL 02/25/2025 4:23 AM EDT [facility] BUN/Creatinine Ratio 15 02/25/2025 4:23 AM EDT [facility] Sodium, Plasma 137 136 - 145 mmol/L 02/25/2025 4:23 AM EDT [facility] Potassium, Plasma 3.7 3.6 - 4.9 mmol/L 02/25/2025 4:23 AM EDT [facility] Chloride, Plasma 101 97 - 107 mmol/L 02/25/2025 4:23 AM EDT [facility] CO2, Plasma 24 22 - 29 mmol/L 02/25/2025 4:23 AM EDT [facility] Anion Gap 12 6 - 16 mmol/L 02/25/2025 4:23 AM EDT [facility] Total Calcium, Plasma 9.2 8.9 - 10.2 mg/dL 02/25/2025 4:23 AM EDT [facility] Total Protein 7.4 6.3 - 7.9 g/dL 02/25/2025 4:23 AM EDT [facility] Albumin, Plasma 3.5 3.5 - 5.2 g/dL 02/25/2025 4:23 AM EDT [facility] AST, Plasma 20 10 - 50 U/L 02/25/2025 4:23 AM EDT [facility] Comment:Hemolyzed, result ma y be falsely increased. ALT, Plasma 16 10 - 50 U/L 02/25/2025 4:23 AM EDT [facility] Alkaline Phosphatase, Plasma 100 40 - 115 U/L 02/25/2025 4:23 AM EDT [facility] Total Bilirubin, Plasma 0.7 0.2 - 1.1 mg/dL 02/25/2025 4:23 AM EDT [facility] eGFRcr 115.1 mL/min/1.7 3m*2 02/25/2025 4:23 AM EDT [facility] Comment:Reported eGFRcr in m L/min/1.73m2 is based the CKD-EPI 2020 equation that does not use a race coefficient. Blood Venous blood specimen / Unknown Venipuncture / Unknown 02/25/2025 3:18 AM EDT 02/25/2025 3:53 AM EDT us Franco Guillory MD LAB BLOOD ORDERABLES Final Res ult Performing Organization Address City/State/[facility] Co de Phone Number [facility] [address] [place] [address] * CT THORACIC OUTSIDE IMAGES (02/24/2025 8:44 [...] updated to appropriate status: Yes Care Teams Surtass Analyst Relationship Specialty Start Date End Date Pcp, No [address] [place] [address] PCP - General Family Medicine 02/25/25 [address] [facility] [address] Fertilizer Supervisor 03/02/25
--- OUTSIDE RECORDS SUMMARY | 2025-03-19 09:35 | XMS_ITS | Encounter Summary ---
Author Organization Healthcare Address [address] [place] [address] Care Team Providers Care Lineman A Class Name Role Phone Pcp, No Primary Care Provider Francisco Javier Mendez MD Unavailable [phone] Encounter Details Date Type Department Care Team [...] time in the past 12 m [facility], were you homeless or living in [...] Description 03/26/2025 11:40 AM EDT [facility] [address], [facility] [address] [place] [phone] Sherlyn Cisse MD [id number] [place] [phone] 03/27/2025 9:00 AM EDT Office Visit [address] [phone] Keny Chin MD [address] [place] [phone] 04/10/2025 9:00 AM EDT Office Visit [address] [phone] Leela Chin MD [address] [place] [phone] documented as of this encounter Visit Diagnoses Not on filedocumented in this encounter Additional Health Concerns Assessment Noted Time A Body Mass Index follow-up plan has been documented for the patient 03/08/2025 1:43 PM EDT documented as of this encounter Care Teams Lineman A Class Relationship Specialty Start Date End Date Pcp, No [address] [place] [address] PCP - General Family Medicine 02/25/25 Francisco Javier Eller MD [address] [place] [address] Toy Assembly Supervisor 03/02/25 documented as of this encounter
[2025-03-19 09:46] LABS: Basophils % 1.1 % (0.1-2.0); Eosinophils # 0.2 Kmm3 (0.0-0.4); Eosinophils % 6.1 % (0.1-12.0); Hematocrit 43.9 % (42.0-52.0); Hemoglobin 14.7 g/dL (14.1-18.0); Immature Granulocytes # 0.02 10^3uL; Immature Granulocytes % 0.5 %; Lymphocytes # 1.1 K/mm3 (0.7-4.5); Lymphocytes % 29.5 % (10-50); Mean Corpuscular HGB Conc 33.5 g/dL (31.8-35.4); Mean Corpuscular Hemoglobin 29.5 pg (27.0-31.2); Mean Platelet Volume 9.6 fl (7.4-10.4); Monocytes # 0.3 K/mm3 (0.1-1.0); Monocytes % 7.6 % (1.7-9.3); Neutrophils # 2.1 K/mm3 (1.8-7.8); Neutrophils % 55.2 % (37.0-80.0); Nucleated Red Blood Cells # 0 10^3/uL; Nucleated Red Blood Cells % 0 %; Platelet Count 145 K/mm3 (142-424); Red Blood Count 4.99 M/mm3 (4.60-6.20); Red Cell Distribution Width 13.3 % (11.5-17.5); Red Cell Distribution Width-SD 43.1 fL; White Blood Count 3.8 K/mm3 (4.8-10.8)
[2025-03-19 09:56] LABS: Blood Urea Nitrogen 15 mg/dl (9-20); Creatinine Clearance Estimated 189 mL/min (50-200); Estimated Glomerular Filt Rate 95 ml/min (>60); GFR (African American) 116 ML/MIN (>60)
[2025-03-19 10:02] LABS: C-Reactive Protein 13.9 mg/L (0-4)
== END 2025-03-19 09:45 | disposition home or self-care (01) ==
LOC: INF 09:30
PROVIDERS: Visit Provider Physician Assistant
DX: R78.81 Bacteremia (principal); B95.61 Methicillin susceptible Staphylococcus aureus infection as the cause of diseases classified elsewhere
CPT/HCPCS: 36592; 82565; 84520; 85025; 86140

== ENCOUNTER 2025-03-26 11:52 | Outpatient (CLI) | payer OTHER, MEDICAID, SELFPAY ==
--- OUTSIDE RECORDS SUMMARY | 2025-02-25 02:42 | XMS_ITS | Encounter Summary ---
Author Organization Healthcare Address [address] [place] [address] Care Team Providers Care Hazardous Substances Engineer Name Role Phone Pcp, No Primary Care Provider Unavailvidal e Francisco Javier Eller MD Unavailable [phone] Reason for Visit * Reason Comments Wound Check * Auth/Cert (Routine) Specialty Diagnoses / Procedures Referred By Kerry t Referred To Contact Diagnoses Sternal wound dehiscence, initial encounter chest abscess at surgical scar near mediastinum with hx cabg 2021 at [facility] Sherlyn Daniel MD [address] [address] Phone: tel: fax: P[facility] A Emergency Department [address] [place] [address] Phone: tel: Referral ID Status Reason Start Date Expiration Date Visits Re quested Visits Authorized [id number] 1 1 Encounter Details Date Type Department Care Team (Latest Contact Info) Description 02/25/2025 2:42 AM EDT - 03/06/2025 1:35 PM EDT Hospital Encounter [facility] A Inpatient [address] [place] [id number] Franco Guillory MD [address] [place] [address] Sherlyn Daniel MD [address] [address] Chest wall abscess (Primary Dx); [...] any time in the past 12 m [facility], were you homeless or living in a [place] health care facility (including now)? No 02/27/2025 Utilities Answer Date [...] 1 each 5 04/10/20 25 HYDROcodone-acetami nophen ([place]) 5-325 MG tablet Take 1 tablet by [...] 12 hours or as directed by . 20 patch 5 naloxone (Narcan) 4 mg/0.1 [...] Daniel MD PCP name and Address: Pcp, [facility] [address] [place] [address] / [facility] [id number] Referring provider name and address: Stephen Tello, SONYA [address] [place] [address] [place], [place] Chief Concern, Brief History of Present Illness, and Hospital Course Alex Amaya is a 34 y.o. male with history of IV drug use on suboxone, infectious endocarditisrequiring tricuspid valve repair in [place] in 2019. He states that he had [...] and got worse so he went to [facility] where he was found to have [...] 12 hours or as directed by MD. methocarbamol 750 MG tablet Commonly known as: [...] Your Medications These medications were sent to [facility] - [place], [place] - [address], [facility] [address] ceFAZolin injection These medications were sent to [facility] [place] - [address] [facility] [address] lidocaine 5 % patch methocarbamol 750 MG [...] leaflet repair and De Lucas procedure at [facility] ([place]) - OSH CT imaging uploaded and reviewed - 02/25: BCx (+) staph aureus - Underwent chest washout, wound debridement, removal of sternal plates, and wound vac placement on02/[address] Daniel (silver sponge so no WV change til Wednesday) - TTE shows LVEF 59%, mod dilated RV with nl RV fx. TV leaflets thickened. 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 There appears to be [...] Post-Operative Pain - Continue home Suboxone - [facility] Obesity (POA) - BMI 33.47 - Complicates [...] Center 03/08/2025 2:00 PM Keny Tristan MD [facility]TCHG[facility]ISON [facility] 03/12/2025 9:40 AM Sherlyn Daniel MD [facility] 03/26/2025 11:40 AM Sherlyn Daniel MD CVTCHKYC [facility] 03/27/2025 9:00 AM Keny Chin MD IDBCCLX [place] 04/10/2025 9:00 AM Leela Chin MD IDBCCLX [place] Follow-up: Francisco [facility]avier Ell[facility] [place] [id number] Go on 04/26/2025 Your appointment time is 2:10pm Please arrive 15 minutes early and bring bottles of medication [facility] [address] [place] [id number] Go on 03/12/2025 03/12/25 at 11:30 AM - Infusion Center for PICC and labs Wound Vac Changes MWF - same location, but in Physical Therapy Department - First Appointment 03/14/25 9:00 AM [facility] [address] [place] [address] Follow up for IV antibiotics and supplies Stephen Tello, SOYNA [address] [place] [address] [facility] Test Results Pending At Discharge Pending Labs [...] Note Alex Amaya 34 y.o. male CSN: [id number] Admission: 02/25/2025 2:42 AM Primary Problem: Sternal wound dehiscence, initial encounter Primary Group Home Manager: Primary Caregiver: Self Assistance Available at Discharge: Availability of Care Givers (#Hours): 24 hours, No assistance needed Family/Group Home Manager(s) Willingness Assessed to care for patient at [...] days Follow-up: Francisco Javier Eller MD [address] [facility] [id number] Go on 04/26/2025 Your appointment time is 2:10pm Please arrive 15 minutes early and bring bottles of medication [facility] [address] [facility] [address] [place] [address] Go on 03/12/2025 03/12/25 at 11:30 AM - Infusion Center for PICC and labs Wound Vac Changes MWF - same location, but in Physical Therapy Department - First Appointment 03/14/25 9:00 AM [facility] [address] [place] [address] Follow up for IV antibiotics and supplies Stephen Tello, SONYA [address] [place] [address] [facility] Discharge Transportation: Transportation Anticipated: family or friend [...] vac changes and then will go to [facility]. S/O will assist and transport. Lise Christine, RN * Care Plan - [...] note were not included. 798 Narcan Nasal [place]: Rescue Guide for Opioid Overdose Step 1 [...] for use in the nose. * Tyler MooreLESLI - Barbara Martins - 03/06/2025 9:41 AM EDT Images from the original note were not included. [id number] Methocarbamol Brand Name(s): Robaxin??; also available generically [...] be awakened, immediately call emergency services at [phone]. What OTHER INFORMATION should I know? Keep all appointments with your doctor. Do not let anyone else take your medication. Ask your pharmacist any questions you have about refilling your prescription. It is important for you to keep a written list of all of the prescription and nonprescription (nhat-tda-kiilqre) medicines you are taking, as well as [...] or pharmacist about specific clinical use. The [place] [employer] represents that the information provided hereunder was formulated with a reasonable standard of care, and in conformity with professional standards in the field. The [place] [employer] makes no representations or warranties, express or implied, including, but not limited to, any implied warranty of merchantability and/or fitness for a particular purpose, with respect to such information and specifically disclaims all such warranties. Users are advised that decisions regarding drug therapy are complex medical decisions requiring the independent, informed decision of an appropriate health primary care nurse practitioner, and the information is provided for informational purposes only. The entire monograph for a drug should be reviewed for a thorough understanding of the drug's actions, uses and side effects. The [place] [employer] does not endorse or recommend the use of any drug.The information is not a substitute for medical care. AHFS?? Patient Medication Information?. ?? Copyright, 2023. The [place] [employer] Pharmac[employer]??, [address], [address], [place], [place]. All Rights Reserved. Duplication for commercial use must be authorized by [facility]. Selected Revisions: May 18, 2017. AHFS?? Patient Medication Information?. ?? Copyright, 2024 * [facility] - Barbara Martins - 03/06/2025 9:41 AM EDT Images from the original note were not included. [id number] Lidocaine Transdermal Patch Brand Name(s): Absorbine Jr?? [...] or years after a shingles infection). Nonprescription (xsvz-lzg-xemwrde) lidocaine (Absorbine Jr, Aspercreme, Lidoca re, Salonpas, [...] or doctor for a copy of the emergency medicine's information for the patient. Are there OTHER [...] if you have or have ever had wysluid-0-asfrtqlgz dehydrogenase (G-6PD) deficiency (an inherited blood disorder), [...] and out of their sight and reach. [email or web address].org Unneeded medications should be disposed of in [...] be awakened, immediately call emergency services at 391. Symptoms of overdose may include: ?? lightheadedness [...] of all of the prescription and nonprescription (pjlg-hmy-ldxzapr) medicines you are taking, as well as [...] or pharmacist about specific clinical use. The [place] [employer] represents that the information provided hereunder was formulated with a reasonable standard of care, and in conformity with professional standards in the field. The [place] [employer]. makes no representations or warranties, express or implied, including, but not limited to, any implied warranty of merchantability and/or fitness for a particular purpose, with respect to such information and specifically disclaims all such warranties. Users are advised that decisions regarding drug therapy are complex medical decisions requiring the independent, informed decision of an appropriate health primary care nurse practitioner, and the information is provided for informational purposes only. The entire monograph for a drug should be reviewed for a thorough understanding of the drug's actions, uses and side effects. The [place] [employer] does not endorse or recommend the use of any drug.The information is not a substitute for medical care. AHFS?? Patient Medication Information?. ?? Copyright, 2023. The [employer] Pharmac[employer]??, [address], [address], [place], [place]. All Rights Reserved. Duplication for commercial use must be authorized by [facility]. Selected Revisions: March 18, 2021. AHFS?? Patient Medication Information?. ?? Copyright, 2024 * Tyler Easley - Barbara Martins - 03/06/2025 9:41 AM EDT Images from the original note were not included. [id number] Cefazolin Injection Brand Name(s): Ancef?, Kefzol?; also [...] of all of the prescription and nonprescription (fndm-llc-yhrcrdc) medicines you are taking, as well as [...] or pharmacist about specific clinical use. The [place] [employer]. represents that the information provided hereunder was formulated with a reasonable standard of care, and in conformity with professional standards in the field. The [place] [employer]. makes no representations or warranties, express or implied, including, but not limited to, any implied warranty of merchantability and/or fitness for a particular purpose, with respect to such information and specifically disclaims all such warranties. Users are advised that decisions regarding drug therapy are complex medical decisions requiring the independent, informed decision of an appropriate health primary care nurse practitioner, and the information is provided for informational purposes only. The entire monograph for a drug should be reviewed for a thorough understanding of the drug's actions, uses and side effects. The [place] [employer] does not endorse or recommend the use of any drug.The information is not a substitute for medical care. AHFS?? Patient Medication Information?. ?? Copyright, 2023. The [employer] Pharmacists??, [address], [address], [place], [place]. All Rights Reserved. Duplication for commercial use must be authorized by [facility]. Selected Revisions: March 23, 2024. AHFS?? [...] present and normoactive x 4 quadrants SKIN: [place], warm, and dry. No rash, sores, or [...] leaflet repair and De Lucas procedure at [facility]) - OSH CT imaging uploaded and reviewed - 02/25: BCx (+) staph aureus - Underwent chest washout, wound debridement, removal of sternal plates, and wound vac placement on02/[address] Daniel (silver sponge so no WV change til Wednesday) - TTE shows LVEF 59%, mod dilated RV with nl RV fx. TV leaflets thickened. 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 There appears to be [...] W[place] changes, continue home Suboxone Cardiothoracic Surgery [phone] * Progress Notes - Lise Christine RN - 03/05/2025 3:07 PM EDT Case Management Discharge Note Alex Amaya 34 y.o. male CSN: [id number] Admission: 02/25/2025 2:42 AM Primary Problem: Sternal wound dehiscence, initial encounter Primary Group Home Manager: Primary Caregiver: Self Assistance Available at Discharge: Availability of Care Givers (#Hours): 24 hours, No assistance needed Family/Group Home Manager(s) Willingness Assessed to care for patient at [...] 30 days Follow-up: Francisco Javier Ell[facility] [id number] Go on 04/26/2025 Your appointment time is 2:10pm Please arrive 15 minutes early and bring bottles of medication [facility] [address] [facility] [address] [place] [id number] Go on 03/12/2025 03/12/25 at 11:30 AM - Infusion Center for PICC and labs Wound Vac Changes MWF - same location, but in Physical Therapy Department - First Appointment 03/14/25 9:00 AM [facility] [address] [place] [address] Follow up for IV antibiotics and supplies Discharge Transportation: Transportation Anticipated: family or friend will provide Transportation Home at Discharge: Family/Friend will Provide Follow Up Transport: Transportation Needed to Follow up Appoinments: Family/Friend will Provide Additional Comments: Per primary team patient is medically ready for discharge. Patient will discharge with IV antibiotics from [facility] - supplies will be delivered to bedside. Wound vac ordered through [facility] - will be delivered to bedside. Patient will follow up in Cardiovascular Clinic for first two wound vac changes, then will go to [facility] starting March 14. Patient also scheduled to go [place] [facility] [place] for PICC care and labs. Family will assist and transport. Update: [facility] unable to deliver IV abx today. He [...] Roper RN Authorized by: Sherlyn Daniel MD [place] Protocol: Verbal consent obtained?: Yes Written consent [...] vein Patient position: Flat Catheter Lot #: [id number] Catheter emergency medicine: [employer] Catheter placed: Single lumen Catheter size: 4 [...] present and normoactive x 4 quadrants SKIN: [place], warm, and dry. No rash, sores, or [...] leaflet repair and De Lucas procedure at [facility] ([place]) - OSH CT imaging uploaded and reviewed - 02/25: BCx (+) staph aureus - Underwent chest washout, wound debridement, removal of sternal plates, and wound vac placement with Dr Daniel (silver sponge so no WV change til Wednesday) - TTE shows LVEF 59%, mod dilated RV with nl RV fx. TV leaflets thickened. 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 There appears to be [...] present and normoactive x 4 quadrants SKIN: [place], warm, and dry. No rash, sores, or [...] leaflet repair and De Lucas procedure at [facility] ([place]) - OSH CT imaging uploaded and reviewed - 02/25: BCx (+) staph aureus - Underwent chest washout, wound debridement, removal of sternal plates, and wound vac placement on02/[address] Daniel (silver sponge so no WV change til Wednesday) - TTE shows LVEF 59%, mod dilated RV with nl RV fx. TV leaflets thickened. 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 There appears to be [...] Post-Operative [facility] - [facility] Ob[facility] (POA) - BMI 33.47 - Complicates care Plan: - Continue cefazolin per ID - Continue wound vac - Per ID, if BC from 02/27 & 03/01 remain negative, okay to order single lumen PICC. Cardiothoracic Surgery [phone] * Care Plan - Yared Cartwright RN [...] leaflet repair and De Lucas procedure at [facility] ([place]) - OSH CT imaging uploaded and reviewed - 02/25: BCx (+) staph aureus - Underwent chest washout, wound debridement, removal of sternal plates, and wound vac placement on02/[address] Daniel (silver sponge so no WV change til Wednesday) - TTE shows LVEF 59%, mod dilated RV with nl RV fx. TV leaflets thickened. 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 There appears to be [...] to order single lumen PICC. Cardiothoracic Surgery [phone] * Significant Event - Keny Chin MD [...] 0930AM WEEK 6 FOLLOWUP: 04/10/2025, 0900AM at [address] [place] [address] (Select Option 3 for IV Antibiotic / PICC line related issues) All questions regarding outpatient parenteral antimicrobials after discharge should be directed to the OPAT nurse navigator at (Select Option 3 for IV Antibiotics/PICC Issues) between 8am-5pm. After 5 pm, or during weekends/[place] holidays, please call the paging retort or condenser press operator at to reach the on-call ID [...] 650 mg, 650 mg, Oral, q4h PRN, Carloz, Kelsie A, RETURNS CLERK Buprenorphine HCl-Naloxone HCl (Suboxone) 8-2 MG per SL film 8 mg, 8 mg, Sublingual, BID, Alejandro Sandoval PA, 8 mg at 03/02/25 0924 calcium carbonate (Tums) chewable tablet 500 mg, 500 mg, Oral, q6h PRN, Zacher, Kelsie A, RETURNS CLERK ceFAZolin (Ancef) injection 2 g, 2 g, Intravenous, q8h, Carloz, Kelsie A, RETURNS CLERK, 2 g at 03/02/25 0923 docusate sodium (Colace) capsule 100 mg, 100 mg, Oral, BID, Zacher, Kelsie A, RETURNS CLERK, 100 mg at 03/02/25 0923 heparin (porcine) injection 5,000 Units, 5,000 Units, Subcutaneous, q8h [facility], Maxwell Ocasio MD, 5,000 Units at 03/02/25 0515 HYDROmorphone (Dilaudid) tablet 2 mg, 2 mg, Oral, q6h PRN, Zacher, Kelsie A, RETURNS CLERK ibuprofen tablet 600 mg, 600 mg, Oral, q6h PRN, Zariley, Kelsie A, RETURNS CLERK lidocaine (Lidoderm) 5 % patch 1 patch, 1 patch, Apply externally, q24h, Zariley, Kelsie A, RETURNS CLERK, 1 patch at 03/01/252111 methocarbamol (Robaxin) tablet 750 mg, 750 mg, Oral, 4x daily, Zariley, Kelsie A, RETURNS CLERK, 750 mg at 03/02/25 0923 senna (Senokot) tablet 17.2 mg, 17.2 mg, Oral, Nightly, Kelsie Carty APRN, 17.2 mg at 02/27/25 2139 simethicone (Mylicon) [...] mL, 10 mL, Intravenous, PRN, Kelsie Carty RETURNS CLERK O: Visit Vitals BP 130/79 (BP Location: [...] regurgitation. Tricuspid Valve: The leaflets appear thickened. 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 There appears to be [...] is no recent study available for direct hgnq-mx-sevu comparison. 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 Ptalso with h/o TV IE in 2019 for which he had TV leaflet repair and De Lucas procedure at [facility]). Pt was incarcerated at the time, and [...] inage in several years. Pt seen at [facility] 02/24/2025. 02/24/2025 CT showed 2.4x2.1x2.6cm abscess at [...] leaflet repair and De Lucas procedure at [facility] SUBSTANCE ABUSE: Illicit: H/o IVDA, polysubstance abuse. [...] abx therapy. For now, while inpatient at [facility]: Continue Cefazolin 2g IV q8h as [...] appointment in order to complete registration paperwork.) [facility] (Infectious Diseases Clinic) [address] [place] [address] CARDIOLOGY MANAGER: . FAX: [facility] will sign off. (Please reconsult us if his 02/27/2025 or 03/01/2025 blood cultures turn positive. This will affect dates of therapy and when PICC can be placed.) The following complex inpatient infectious disease services were performed today: Complex antimicrobial therapy counseling and treatment * Tyler Kaushal - Donna Rosario RN - 03/02/2025 10:43 [...] arms away from your body. * [facility] Donna Rosario RN - 03/02/2025 10:43 AM EDT Images from the original note were not included. [id number] Understanding Wound Separation After Surgery (Wound Dehiscence) [...] of the opening. How to say it Mil How wound dehiscence happens A wound can [...] out Last Reviewed Date: 2024 00:00:00 ?? 2063-1628 The [employer]. All rights reserved. This information is not intended as a substitute for professional medical care. Always follow your healthcare professional's instructions. * Consults - Asia Neumann RD - 03/02/2025 9:48 AM EDT Adult Nutrition Evaluation Note Alex Amaya 34 y.o. male CSN: [id number] Room/Bed 119/119A Nutrition evaluation type: assessment Reason for evaluation: [facility] course: 34 yo male transferred to from [facility] for evaluation of chronic sternotomy wound with [...] suboxone, infectious endocarditis requiring tricuspid valverepair in [place] in 2020. Medical History[1] Surgical History[2] Social history: Social [...] (Room air) O2 Delivery Method: Nasal cannula [place] Coma Scale Score: 15 Jhony Scale Score: [...] (260 lb 12.9 oz) BMI (Calculated): 33.47 [place] Body Weight (kg): 86.4 Percent [place] Body Weight: 137 Adjusted Body Weight (kg): 94.4 Estimated Needs: Metabolic Cart Study Results: Current Nutrition Intake: Diet Supplements: None Diet Order: Adult Diet Diet Texture: Regular Percent Meals Eaten (%): 100% x 3 meals Diet Experience and Nutrition History: Diet Education Provided: Will monitor Pertinent home medications: Reviewed Quaker needs: Nutrition Focused Physical Exam: Physical exam [...] with nl RV fx. TV leaflets thickened. 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 There appears to be restricted motion/malcoaptation involving the septal leaflet. There is no tricuspid valve vegetation. There is severe tricuspid regurgitation. There is systolic flow reversal of the hepatic veins consistent with significant tricuspid valve regurgitation. OUD (POA) Post-Operative Pain - continue home Suboxone - [facility] Obesity (POA) - BMI 33.88 - complicates all aspects of care Plan: - Continue IV abx per ID - Continue wound vac - Will need PICC Cardiothoracic Surgery [phone] * Progress Notes - Estefania Salguero - 03/01/2025 8:08 AM EDT Case Management Adult Progress Note Alex Amaya 34 y.o. male CSN: [id number] Admission: 02/25/2025 2:42 AM Primary Problem: Sternal [...] IV Access: pending Patient Specific Outpatient Circumstances: [address] [place] [address] Family Support: Extended Emergency Contact Information Primary Emergency Contact: Mary Lemus Mobile Relation: Significant Other Preferred language: Tunisian Welfare Case Worker needed? No Contact information: Alex Amaya -[phone] Afua Lemus (pt's S.O. -will administer IV abx) - [phone] Outpatient services (including home infusion, home health, [...] PICC care/labs;patient is requesting to go to [facility] close to home . After this discussion, [...] via secure chat or staff messaging in Zoomph. This note is not the final recommendations [...] 500 mg, Oral, q6h PRN, August Cartya Gilbert, RETURNS CLERK ceFAZolin (Ancef) injection 2 g, 2 g, Intravenous, q8h, Kelsie Carty RETURNS CLERK, 2 g at 02/28/25 0908 docusate sodium (Colace) capsule 100 mg, 100 mg, Oral, BID, Carloz Kelsie A, RETURNS CLERK, 100 mg at 02/27/25 2139 heparin (porcine) [...] 1 patch, 1 patch, Apply externally, q24h, eKlsie Carty APRN, 1 patch at 02/27/25 2139 methocarbamol (Robaxin) tablet 750 mg, 750 mg, Oral, 4x daily, Kelsie Carty APRN, 750 mg at 02/28/25 0909 senna (Senokot) tablet 17.2 mg, 17.2 mg, Oral, Nightly, Kelsie Carty APRN, 17.2 mg at 02/27/25 213 simethicone [...] mL, 10 mL, Intravenous, PRN, Kelsie Carty RETURNS CLERK O: Visit Vitals BP 134/77 (BP Location: [...] regurgitation. Tricuspid Valve: The leaflets appear thickened. 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 There appears to be [...] is no recent study available for direct fopf-qb-gonp comparison. 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 Ptalso with h/o TV IE in 2019 for which he had TV leaflet repair and De Lucas procedure at [facility]). Pt was incarcerated at the time, and post-discharge developed chronic drainage from cephalad portion of sternal wound. Pt reportedly had I&Ds at health system. Wound subsequentlyhas open and closed several times since 2021, including in December 2024. On/around 02/19/2025, wound again ruptured with large amount of purulent drainage, which pt described as largest amount of renata inage in several years. Pt seen at [facility] 02/24/2025. 02/24/2025 CT showed 2.4x2.1x2.6cm abscess at [...] leaflet repair and De Lucas procedure at [facility] ([place]) SUBSTANCE ABUSE: Illicit: H/o IVDA, polysubstance abuse. [...] abx therapy. For now, while inpatient at [facility]: Continue Cefazolin 2g IV q8h as [...] and treatment * Progress Notes - Kelsie Carty, RETURNS CLERK - 02/28/2025 11:30 AM EDT CVT Progress [...] with nl RV fx. TV leaflets thickened. 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 There appears to be restricted motion/malcoaptation involving the septal leaflet. There is no tricuspid valve vegetation. There is severe tricuspid regurgitation. There is systolic flow reversal of the hepatic veins consistent with significant tricuspid valve regurgitation. OUD (POA) Post-Operative Pain - continue home Suboxone - [facility] Obesity (POA) - BMI 33.88 - complicates all aspects of care Plan: - continue IV abx per ID - continue wound vac Cardiothoracic Surgery [phone] * Care Plan - Nasra Jasmine RN [...] needed in the future. Mayelin Caruso PharmD, [facility] Clinical Pharmacist - Cardiology Contact via secure [...] of HCV workup. Branden Elizalde, Pharm D. [facility] ED [facility] SPE[facility] PHARM via secure chat [...] HUGHES Jeffrey A, MD, 5,000 Units at 02/27/25 [...] regurgitation. Tricuspid Valve: The leaflets appear thickened. 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 There appears to be [...] is no recent study available for direct tffi-wj-tqpn comparison. 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 Ptalso with h/o TV IE in 2019 for which he had TV leaflet repair and De Lucas procedure at [facility] ([place]). Pt was incarcerated at the time, and [...] inage in several years. Pt seen at [facility] 02/24/2025. 02/24/2025 CT showed 2.4x2.1x2.6cm abscess at [...] leaflet repair and De Lucas procedure at [facility] ([place]) SUBSTANCE ABUSE: Illicit: H/o IVDA, polysubstance abuse. [...] abx therapy. For now, while inpatient at [facility]: D/c Vanco and Zosyn Start Cefazolin [...] Note Alex Amaya 34 y.o. male CSN: [id number] Admission: 02/25/2025 2:42 AM Primary Problem: Sternal wound dehiscence, initial encounter PCP: Pcp, No Emergency Contact: Extended Emergency Contact Information Primary Emergency Contact: Mary Lemus Mobile Relation: Significant Other Preferred language: Tunisian Welfare Case Worker needed? No Insurance: Primary Visit Coverage Payer Plan Sponsor Code Group Number Group Name AETNA AETNA OPEN CHOICE ACCESS [id number] Primary Visit Coverage Subscriber Subscriber ID Subscriber Name Subscriber SSN Subscriber Address [id number] Alex Amaya [id number] [address] [place] [address] Secondary Visit Coverage Payer Plan Sponsor Code Group Number Group Name WELL[employer] MEDICAID WELLCARE MEDICAID Secondary Visit Coverage Subscriber Subscriber ID Subscriber Name Subscriber SSN Subscriber Address [id number] Alex Amaya [id number] [address] [place] [address] Patient information: Primary Caregiver: Self Accompanied by/Relationship: Mary Lemus ([phone]) Support System: Immediate family Daily Living Activities: Functional Status: Independent Living Arrangements: Spouse/Significant other, Children (5 y.o. child) Type of Residence: Private residence, Single Level (1-2 DANIS) [address] [facility] [address] Current DME: Equipment Currently Used at Home: [...] Dialysis Services: N/A Living Will/Advance Directive/Power of Cardiology Manager /Guardian: Have you reviewed your Advance Directive [...] pt accompanied by significant other Mary Lemus ([phone]). Pt does not have a POA/LW/AD. Pt lives with s/o and their 5 y.o. child in a single-story home with 1-2 DANIS; address in chart confirmed. Pt reports he [...] DC. Pt has never worked with an PLOW MECHANIC and has never stayed anywhere overnight for physical rehab. Pt prefers [facility] in [place] as his pharmacy. Pt confirms insurance listed [...] sounds present and normoactivex 4 quadrants SKIN: [place], warm, and dry. No rash, sores, or [...] Post-Operative Pain - continue home Suboxone - [facility] Obesity (POA) - BMI 32 - complicates all aspects of care Plan: - continue IV abx per ID - continue wound vac - TTE completed this morning, read pending Cardiothoracic Surgery [phone] * Discharge Instr - Other Orders - Donna Rosario RN - 02/27/2025 10:28 AM EDT Please arrive 30 minutes early for your appointment with Dr. Daniel Prior to your appointment, go to the radiology department on the 1st floor of the [facility] near [facility] for a chest x-ray. Then go to [...] your incisions. Do NOT lift, push or socket puller 5 pounds for six weeks. Do [...] Donna Rosario CT Surgery Nurse Navigator at [phone] Wednesday through Wednesday 7am- 3:30pm [facility] [phone] after 3:30 pm, weekends and holidays - ask for the CT surgeon offshore wind operations manager. * Progress Notes - Alejandro Sandoval PA [...] sounds present and normoactivex 4 quadrants SKIN: [place], warm, and dry. No rash, sores, or [...] Post-Operative Pain - continue home Suboxone - [facility] Obesity (POA) - BMI 32 - complicates all aspects of care Plan: - continue IV abx per ID - continue wound vac Cardiothoracic Surgery [phone] * Anesthesia PACU Signout - Umberto Davis [...] CORONARY ARTERY BYPASS GRAFTING: Date: 02/26/2025 Location: [facility] OR Name: Alex Amaya : 1990, Pre-operative [...] suboxone, infectious endocarditisrequiring tricuspid valve repair in [place] in 2019. He states that he had [...] midnight. Pacheco Ocasio MD Cardiothoracic Surgery Pager: [phone] * Significant Event - Alejandro Sandoval PA - 02/25/2025 1:35 PM EDT Patient seen and evaluated with Dr Daniel. Will go to OR tomorrow for chest washout and removal of sternal plates with Dr Daniel. Pre-op orders placed. Consent obtained and placed in paper chart. NPOp AL. CT Surgery [phone] * Consults - Kinga Mc MD - [...] valve repair with a DeVega Procedure at [facility] (2019), multiple I&Ds of superior sternotomy site most recent in 2021, and chronic drainage of sternotomy (last episode 3 months prior) who presents as a transfer from [facility] with new and worsened superior sternotomy drainage. MDET team were consulted to provide recommendations on therapy and management. Mr. Amaya first noted repeat drainage on 02/19/25, associated with fevers, chills, and swelling. He went to a local ED and was discharged. Given no change he then went to [facility]. CT Chest showed a fluid collection anterior to the sternum and was transferred to for ID follow up and CT surgery evaluation. Upon arrival to on 02/25 blood cultures were taken and have NGTD. Wound cultures have a GS positive for GPC in pairs and clusters. He was started on Vancomycin and Zosyn, with plans to go to the [facility]surgical specialty center for washout with Dr. Daniel. Additional pertinent admission workup includes Hep C antibodypositivity, HIV non-reactive, CRP of 282.5, and an ESR of 65. When spoken to Mr. Amaya endorses persistent drainage from his sternal wound. In the room therewas considerable drainage on his dressing, which ID team changed. He endorsed the above history anddescribes following with a wet machine cutter Dr. Park. Social: Was recently incarcerated until [...] Value Units Date/Time Blood Culture (Aerobic/Anaerobet Set) [[id number]] Collected: 02/25/25317 Order Status: Completed Specimen: Blood, Venous Updated: 02/25/25 06 Culture Culture in lab Blood Culture (Aerobic/Anaerobet Set) [[id number]] Collected: 02/25/25317 Order Status: Completed Specimen: Blood, Venous Updated: 02/25/25 0601 Culture Culture in lab Wound Culture and Gram Stain [[id number]] (Abnormal) Collected: 02/25/25445 Order Status: Completed Specimen: Swab from Cutaneous skin (specify site) Updated: 02/25/25 05 Gram Stain Result Numerous Polymorphonuclear leukocytes Numerous Gram positive cocci in pairs Numerous Gram positive cocci in clusters Antibiotics: Vancomycin 02/25-P Zosyn 02/25-P Assessment: Alex Amaya is a 34 y.o. male with history of IVDU on suboxone, nTVie s/p valve repair with a DeVega Procedure at [facility] (2019), multiple I&Ds of superior sternotomy site most recent in 2021, and chronic drainage of sternotomy (last episode 3 months prior) who presents as a transfer from [facility] with new and worsened superior sternotomy drainage. MDET team were consulted to provide recommendations on therapy and management. Cultures have not grown any specific organisms at this time, however GS with GPC in pairs and clusters. Agree with washout tomorrow and would obtain cultures. At this time can continue antibiotic therapy. # Hx of nTV ie s/p DeVega Procedure at [facility] (2019) # Sternotomy Site SSTI # Chronic [...] injection 5,000 Units 5,000 Units Subcutaneous q8h [facility] Cassidy Baptiste MD 5,000Units at 02/25/25 0446 [...] ID will follow. Sherman Gonzáles MD Pager: [phone] I spent greater than 110 minutes performing the following components of the encounter (on the day of the encounter): reviewing history, examining the patient, reviewing imaging and/or labs, echo, ECGand/or other imaging results, counseling the patient and family/caregiver, communicating with otherhealth pharmacist critical care. The patient is receiving directed antibiotic therapy which requires monitoring of daily labs for toxicities. Greater than 50% of the time spent on the encounter was [id number] providing direct patient care, counseling for the patient/caregiver, and care coordination. The following complex inpatient infectious disease services were performed today: Complex antimicrobial therapy counseling and treatment * Progress Notes - Marcos Hopper PharmD - 02/25/2025 4:59 AM EDT Pharmacokinetic Consult [...] and monitoring recommendations as appropriate. Thank you, Marcos Hopper PharmD, [facility] Clinical Staff Pharmacist * H&P - Cassidy [...] suboxone, infectious endocarditisrequiring tricuspid valve repair in [place] in 2019. He states that he had [...] and got worse so he went to [facility] where he was found to have [...] Tobacco Use: Medium Risk (01/09/2025) Received from [employer] Patient History Smoking Tobacco Use: Former Smokeless [...] suboxone, infectious endocarditisrequiring tricuspid valve repair in [place] in 2019. He states that he had [...] and got worse so he went to [facility] where he was found to have [...] [facility]/b multiple episodes of [...] and got worse so he went to [facility] where he was found to have the chest abscess. He was transferred to [facility] for evaluation with CT surgery and ID History provided by: Patient and medical records security installation sales technician used: No Patient History Medical History[1] Surgical [...] 0419 Date/Time Order Dose Route Action 02/25/2025 0333 EDT lactated Ringer's infusion 1,000 mL 1,000 mL Intravenous New Bag 02/25/2025 0334 EDT acetaminophen (Tylenol) tablet 1,000 mg 1,000 mg Oral Given All Other Orders Ordered Status Ordering Provider 02/25/25 041 Admit to inpatient Once Completed CASSIDY BAPTISTE 02/25/25 033 Consult to Cardiothoracic Surgery Once Specialty: Cardiothoracic Surgery Provider: (Not yet assigned) Acknowledged VIRGINIA LEWIS 02/25/25 030 Blood Culture (Aerobic/Anaerobet Set) STAT In process VIRGINIA LEWIS 02/25/25 030 Blood Culture (Aerobic/Anaerobet Set) STAT In process VIRGINIA LEWIS 02/25/25 030 Hepatitis C Antibody - ED Once Final result VIRGINIA LEWIS 02/25/25 030 ED Protocol - HIV 1/2 Antibody/Antigen Screen Once Final result VIRGINIA LEWIS 02/25/25 030 ED HIV 1/2 Antibody/Antigen Screen w/Reflex to HIV 1/2 Differentiation PROCEDURE ONCE Final result KANWALV[place] 02/25/25 0308 CBC w/diff STAT Final result [place]AL [place] Hunt 02/25/25 030 CMP STAT Final result VIRGINIA LEWIS 02/25/25 0308 Magnesium STAT Final result [place] Hunt 02/25/25 0308 Phosphorus STAT Final result [place] Gilbert 02/25/25 030 C-Reactive protein STAT Final result [place]AL [place] Hunt 02/25/25 0308 Sed rate, automated STAT Final result [place]AL [place] Hunt 02/25/25 030 Wound Culture and Gram Stain STAT Collected VIRGINIA LEWIS ED Course as of 02/25/25 0511 Sun February 25, 2025 0307 On initial evaluation, pt states that [JG] [address], evidence of extensive subcutaneous edema and infection in the anterior chest wall with fluid collection [JG] 0314 Reviewed of records from [facility], given 1 g ceftriaxone at 19:47. [...] None Disposition Admit Admitting/Attending Physician: SHERLYN DANIEL [[id number]] Provider Care Team: CVT CARDIAC SURGERY [255] Are they the primary team?: Yes [1] - Virginia Lewis MD Internal Medicine, PGY-2 [phone] or via Zoomph chat [1] Past Medical History: Diagnosis Date Endocarditis [2] No past surgical history on file. [3] No family history on file. [4] [5] No Known Allergies Virginia Lewis MD Resident 02/25/25 0511 Cosigned by Franco Guillory MD at 02/25/2025 [...] Care Team (Late st Contact Info) Description 03/27/2025 9:00 AM EDT Office Visit [facility] [address] [place] [address] Keny Chin MD [facility] [address] [place] [address] 03/29/2025 12:20 PM EDT Office Visit [facility] Cardiothoracic [address], [address] [place] [address] Keny Tristan MD [address] [place] [phone] 04/10/2025 9:00 AM EDT Office Visit [facility] [address] [place] [address] Leela Chin MD [address] [facility] [address] [place] [address] Pending Results Name Type Priority Associated Diagnoses Date /Time Prepare Leukocyte Reduced RBC: 4 Units Blood Bank Routine 02/26/2025 8:12 AM EDT AFB Culture, Non Respiratory Source and Acid Fast Stain Microbiology Routine Chest wall abscess 02/26/2025 10:10 AM EDT Fungal Culture, Tissue and DANY Microbiology Routine Chest wall abscess 02/26/2025 10:10 [...] Roper RN Authorized by: Sherlyn Daniel MD [place] Protocol: Verbal consent obtained?: Yes Written consent [...] vein Patient position: Flat Catheter Lot #: [id number] Catheter emergency medicine: [employer] Catheter placed: Single lumen Catheter size: 4 Fr Catheter trimmed length: 51 Catheter threaded length: 51 Vein placed in: SVC Catheter cm indwellin Catheter cm outside: 0 Placement confirmed by: Duong 3CG technology Pre-procedure: Landmarks identified Ultrasound guidance: Yes [...] LAB HEMATOLOGY METHOD 03/03/2025 3:14 AM EDT [facility] Platelet Estimate Platelet smear estimate consistent with automated count LAB HEMATOLOGY METHOD 03/03/2025 3:14 AM EDT [facility] Blood Venous blood specimen / Unknown Venipuncture / Unknown 03/03/2025 2:11 AM EDT 03/03/2025 2:25 AM EDT us Kelsie Carty APRN LAB BLOOD ORDERABLES Final R esult [facility] [address] [place] [address] * (ABNORMAL) Manual Differential (03/03/2025 2:11 AM EDT) Blasts % 0 % LAB HEMATOLOGY METHOD 03/03/2025 3:14 AM EDT [facility] Promyelocytes % 0 % LAB HEMATOLOGY METHOD 03/03/2025 3:14 AM EDT [facility] Myelocytes % 2 % LAB HEMATOLOGY METHOD 03/03/2025 3:14 AM EDT [facility] Metamyelocytes % 3 % LAB HEMATOLOGY METHOD 03/03/2025 3:14 AM EDT [facility] Neutrophils % 75 % LAB HEMATOLOGY METHOD 03/03/2025 3:14 AM EDT [facility] Lymphocytes % 14 % LAB HEMATOLOGY METHOD 03/03/2025 3:14 AM EDT [facility] Reactive Lymphocytes % 0 % LAB HEMATOLOGY METHOD 03/03/2025 3:14 AM EDT [facility] Monocytes % 3 % LAB HEMATOLOGY METHOD 03/03/2025 3:14 AM EDT [facility] Eosinophils % 3 % LAB HEMATOLOGY METHOD 03/03/2025 3:14 AM EDT [facility] Basophils % 0 % LAB HEMATOLOGY METHOD 03/03/2025 3:14 AM EDT [facility] Blasts Absolute 0.00 10*3/UL LAB HEMATOLOGY METHOD 03/03/2025 3:14 AM EDT [facility] Promyelocytes Absolute 0.00 10*3/uL LAB HEMATOLOGY METHOD 03/03/2025 3:14 AM EDT [facility] Myelocytes Absolute 0.21 10*3/uL LAB HEMATOLOGY METHOD 03/03/2025 3:14 AM EDT [facility] Metamyelocytes Absolute 0.31 10*3/uL LAB HEMATOLOGY METHOD 03/03/2025 3:14 AM EDT [facility] Neutrophils Absolute 7.72(H) 1.60 - 6.10 10*3/uL LAB HEMATOLOGY METHOD 03/03/2025 3:14 AM EDT [facility] Lymphocytes Absolute 1.44 1.20 - 3.90 10*3/uL LAB HEMATOLOGY METHOD 03/03/2025 3:14 AM EDT [facility] Reactive Lymphocytes Absolute 0.00 10*3/uL LAB HEMATOLOGY METHOD 03/03/2025 3:14 AM EDT [facility] Monocytes Absolute 0.31 0.30 - 0.90 10*3/uL LAB HEMATOLOGY METHOD 03/03/2025 3:14 AM EDT [facility] Eosinophils Absolute 0.31 0.00 - 0.50 10*3/uL LAB HEMATOLOGY METHOD 03/03/2025 3:14 AM EDT [facility] Basophils Absolute 0.00 0.00 - 0.10 10*3/uL LAB HEMATOLOGY METHOD 03/03/2025 3:14 AM EDT [facility] Blood Venous blood specimen / Unknown Venipuncture / Unknown 03/03/2025 2:11 AM EDT 03/03/2025 2:25 AM EDT us Kelsie Carty APRN LAB BLOOD ORDERABLES Final R esult [facility] [address] [place] [address] * (ABNORMAL) Hepatic function panel (03/03/2025 2:11 AM EDT) Conjugated Bilirubin, Plasma <0.2 <=0.3 mg/dL 03/03/2025 2:55 AM EDT [facility] Comment:Hemolyzed, result ma y be falsely decreased. Alkaline Phosphatase, Plasma 99 40 - 115 U/L 03/03/2025 2:55 AM EDT [facility] Total Bilirubin, Plasma 0.3 0.2 - 1.1 mg/dL 03/03/2025 2:55 AM EDT [facility] Albumin, Plasma 3.3(L) 3.5 - 5.2 g/dL 03/03/2025 2:55 AM EDT [facility] Total Protein 7.9 6.3 - 7.9 g/dL 03/03/2025 2:55 AM EDT [facility] ALT, Plasma 36 10 - 50 U/L 03/03/2025 2:55 AM EDT [facility] AST, Plasma 46 10 - 50 U/L 03/03/2025 2:55 AM EDT [facility] Comment:Hemolyzed, result ma y be falsely increased. Blood Venous blood specimen / Unknown Venipuncture / Unknown 03/03/2025 2:11 AM EDT 03/03/2025 2:23 AM EDT us Kelsie A Zacher RETURNS CLERK LAB BLOOD ORDERABLES Final R esult [facility] [address] [place] [address] * Magnesium, Plasma (03/03/2025 2:11 AM EDT) Pathologist [facility] Magnesium, Plasma 2.2 1.9 - 2.4 mg/dL 03/03/2025 2:55 AM EDT [facility] Blood Venous blood specimen / Unknown Venipuncture / Unknown 03/03/2025 2:11 AM EDT 03/03/2025 2:23 AM EDT us Kelsie Carty RETURNS CLERK LAB BLOOD ORDERABLES Final R esult Performing Organization Address City/[facility]/ZIP Co de Phone Number [facility] [address] [place] [address] * CBC and Differential (03/03/2025 2:11 AM EDT) Pathologist [facility] WBC Count 10.29 3.70 - 10.30 10*3/uL LAB HEMATOLOGY METHOD 03/03/2025 3:15 AM EDT [facility] RBC Count 5.48 4.60 - 6.10 10*6/uL LAB HEMATOLOGY METHOD 03/03/2025 3:15 AM EDT [facility] HGB 15.6 13.7 - 17.5 g/dL LAB HEMATOLOGY METHOD 03/03/2025 3:15 AM EDT [facility] HCT 47.6 40.0 - 51.0 % LAB HEMATOLOGY METHOD 03/03/2025 3:15 AM EDT [facility] Platelet Count 329 155 - 369 10*3/uL LAB HEMATOLOGY METHOD 03/03/2025 3:15 AM EDT [facility] MCV 87 79 - 98 fL LAB HEMATOLOGY METHOD 03/03/2025 3:15 AM EDT [facility] MCH 28.5 26.0 - 32.0 pg LAB HEMATOLOGY METHOD 03/03/2025 3:15 AM EDT [facility] MCHC 32.8 30.7 - 35.5 g/dL LAB HEMATOLOGY METHOD 03/03/2025 3:15 AM EDT [facility] RDW 12.9 11.5 - 14.5 % LAB HEMATOLOGY METHOD 03/03/2025 3:15 AM EDT [facility] MPV 9.1 8.8 - 12.5 fL LAB HEMATOLOGY METHOD 03/03/2025 3:15 AM EDT [facility] nRBC 0.0 <=0.0 per 100 WBCs LAB HEMATOLOGY METHOD 03/03/2025 3:15 AM EDT [facility] Differential Type Manual LAB HEMATOLOGY METHOD 03/03/2025 3:15 AM EDT [facility] Blood Venous blood specimen / Unknown Venipuncture / Unknown 03/03/2025 2:11 AM EDT 03/03/2025 2:25 AM EDT Narrative [facility] - 03/03/2025 3:15 AM EDT Therapeutic [...] APRN LAB BLOOD ORDERABLES Final R esult [facility] [address] [place] [address] * Blood Culture (Aerobic/Anaerobet Set) (03/03/2025 2:11 AM EDT) Culture No growth at day 5 GEENA 03/08/2025 4:02 AM EDT [facility] Blood Structure of antecubital vein / Unknown Venipuncture / Unknown 03/03/2025 2:11 AM EDT 03/03/2025 3:04 AM EDT Narrative [facility] - 03/08/2025 4:02 AM EDT Low blood volume submitted, results may be compromised us Kelsie Carty APRN LAB MICROBIOLOGY - GENERAL O RDERABLES Final Result Performing Organization Address [facility]/ZIP Co de Phone Number [facility] [address] [place] [address] * Blood Culture (Aerobic/Anaerobet Set) (03/03/2025 2:11 AM EDT) Culture No growth at day 5 GEENA 03/08/2025 4:02 AM EDT [facility] Blood Venous blood specimen / Unknown Venipuncture / Unknown 03/03/2025 2:11 AM EDT 03/03/2025 3:03 AM EDT us Kelsie Carty APRN LAB MICROBIOLOGY - GENERAL O RDERABLES Final Result Performing Organization Address [facility]/ZIP Co de Phone Number [facility] [address] [place] [address] * (ABNORMAL) CBC W/O Differential (03/01/2025 3:55 AM EDT) WBC Count 7.81 3.70 - 10.30 10*3/uL LAB HEMATOLOGY METHOD 03/01/2025 4:12 AM EDT [facility] RBC Count 4.51(L) 4.60 - 6.10 10*6/uL LAB HEMATOLOGY METHOD 03/01/2025 4:12 AM EDT [facility] HGB 12.8(L) 13.7 - 17.5 g/dL LAB HEMATOLOGY METHOD 03/01/2025 4:12 AM EDT [facility] HCT 40.5 40.0 - 51.0 % LAB HEMATOLOGY METHOD 03/01/2025 4:12 AM EDT [facility] Platelet Count 292 155 - 369 10*3/uL LAB HEMATOLOGY METHOD 03/01/2025 4:12 AM EDT [facility] MCV 90 79 - 98 fL LAB HEMATOLOGY METHOD 03/01/2025 4:12 AM EDT [facility] MCH 28.4 26.0 - 32.0 pg LAB HEMATOLOGY METHOD 03/01/2025 4:12 AM EDT [facility] MCHC 31.6 30.7 - 35.5 g/dL LAB HEMATOLOGY METHOD 03/01/2025 4:12 AM EDT [facility] RDW 13.0 11.5 - 14.5 % LAB HEMATOLOGY METHOD 03/01/2025 4:12 AM EDT [facility] MPV 9.5 8.8 - 12.5 fL LAB HEMATOLOGY METHOD 03/01/2025 4:12 AM EDT [facility] nRBC 0.0 <=0.0 per 100 WBCs LAB HEMATOLOGY METHOD 03/01/2025 4:12 AM EDT [facility] Blood Venous blood specimen / Unknown Venipuncture / Unknown 03/01/2025 3:55 AM EDT 03/01/2025 4:04 AM EDT Catalina Cuba MD LAB BLOOD ORDERABLES Final Result [facility] [address] [place] [address] * (ABNORMAL) Basic metabolic panel (03/01/2025 3:55 AM EDT) Glucose, Plasma 94 74 - 99 mg/dL 03/01/2025 4:37 AM EDT [facility] BUN, Plasma 14 7 - 21 mg/dL 03/01/2025 4:37 AM EDT [facility] Creatinine, Plasma 0.92 0.70 - 1.20 mg/dL 03/01/2025 4:37 AM EDT [facility] BUN/Creatinine Ratio 15 03/01/2025 4:37 AM EDT [facility] Sodium, Plasma 140 136 - 145 mmol/L 03/01/2025 4:37 AM EDT [facility] Potassium, Plasma 4.4 3.6 - 4.9 mmol/L 03/01/2025 4:37 AM EDT [facility] Chloride, Plasma 105 97 - 107 mmol/L 03/01/2025 4:37 AM EDT [facility] CO2, Plasma 25 22 - 29 mmol/L 03/01/2025 4:37 AM EDT [facility] Anion Gap 10 6 - 16 mmol/L 03/01/2025 4:37 AM EDT [facility] Total Calcium, Plasma 8.8(L) 8.9 - 10.2 mg/dL 03/01/2025 4:37 AM EDT [facility] eGFRcr 110.6 mL/min/1.7 3m*2 03/01/2025 4:37 AM EDT [facility] Comment:Reported eGFRcr in m L/min/1.73m2 is based the CKD-EPI 2020 equation that does not use a race coefficient. Blood Venous blood specimen / Unknown Venipuncture / Unknown 03/01/2025 3:55 AM EDT 03/01/2025 4:04 AM EDT us Catalina Cuba MD LAB BLOOD ORDERABLES Final Result Performing Organization Address City/[facility]/ZIP Co de Phone Number [facility] [address] [place] [address] * Blood Culture (Aerobic/Anaerobet Set) (03/01/2025 3:45 AM EDT) Culture No growth at day 5 GEENA 03/06/2025 5:01 AM EDT [facility] Blood Venous blood specimen / Unknown Venipuncture / Unknown 03/01/2025 3:45 AM EDT 03/01/2025 4:45 AM EDT us Kelsie Carty APRN LAB MICROBIOLOGY - GENERAL O RDERABLES Final Result [facility] [address] [place] [address] * Blood Culture (Aerobic/Anaerobet Set) (03/01/2025 3:30 AM EDT) Culture No growth at day 5 GEENA 03/06/2025 5:01 AM EDT [facility] Blood Venous blood specimen / Unknown Venipuncture / Unknown 03/01/2025 3:30 AM EDT 03/01/2025 4:45 AM EDT us Kelsie Carty APRN LAB MICROBIOLOGY - GENERAL O RDERABLES Final Result [facility] [address] [place] [address] * Magnesium (02/28/2025 4:03 AM EDT) Magnesium, Plasma 2.2 1.9 - 2.4 mg/dL 02/28/2025 4:37 AM EDT [facility] Blood Venous blood specimen / Unknown Venipuncture / Unknown 02/28/2025 4:03 AM EDT 02/28/2025 4:10 AM EDT us Sherlyn Daniel MD LAB BLOOD ORDERABLES Final Res ult Performing Organization Address City/[facility]/ZIP Co de Phone Number [facility] [address] [place] [address] * (ABNORMAL) CBC W/O Differential (02/28/2025 4:03 AM EDT) WBC Count 7.50 3.70 - 10.30 10*3/uL LAB HEMATOLOGY METHOD 02/28/2025 4:26 AM EDT [facility] RBC Count 4.59(L) 4.60 - 6.10 10*6/uL LAB HEMATOLOGY METHOD 02/28/2025 4:26 AM EDT [facility] HGB 13.1(L) 13.7 - 17.5 g/dL LAB HEMATOLOGY METHOD 02/28/2025 4:26 AM EDT [facility] HCT 40.6 40.0 - 51.0 % LAB HEMATOLOGY METHOD 02/28/2025 4:26 AM EDT [facility] Platelet Count 252 155 - 369 10*3/uL LAB HEMATOLOGY METHOD 02/28/2025 4:26 AM EDT [facility] MCV 89 79 - 98 fL LAB HEMATOLOGY METHOD 02/28/2025 4:26 AM EDT [facility] MCH 28.5 26.0 - 32.0 pg LAB HEMATOLOGY METHOD 02/28/2025 4:26 AM EDT [facility] MCHC 32.3 30.7 - 35.5 g/dL LAB HEMATOLOGY METHOD 02/28/2025 4:26 AM EDT [facility] RDW 13.2 11.5 - 14.5 % LAB HEMATOLOGY METHOD 02/28/2025 4:26 AM EDT [facility] MPV 9.8 8.8 - 12.5 fL LAB HEMATOLOGY METHOD 02/28/2025 4:26 AM EDT [facility] nRBC 0.0 <=0.0 per 100 WBCs LAB HEMATOLOGY METHOD 02/28/2025 4:26 AM EDT [facility] Blood Venous blood specimen / Unknown Venipuncture / Unknown 02/28/2025 4:03 AM EDT 02/28/2025 4:12 AM EDT us Sherlyn Daniel MD LAB BLOOD ORDERABLES Final Res ult [facility] [address] [place] [address] * (ABNORMAL) Basic metabolic panel (02/28/2025 4:03 AM EDT) Glucose, Plasma 110(H) 74 - 99 mg/dL 02/28/2025 4:37 AM EDT [facility] BUN, Plasma 18 7 - 21 mg/dL 02/28/2025 4:37 AM EDT [facility] Creatinine, Plasma 1.15 0.70 - 1.20 mg/dL 02/28/2025 4:37 AM EDT [facility] BUN/Creatinine Ratio 16 02/28/2025 4:37 AM EDT [facility] Sodium, Plasma 136 136 - 145 mmol/L 02/28/2025 4:37 AM EDT [facility] Potassium, Plasma 3.8 3.6 - 4.9 mmol/L 02/28/2025 4:37 AM EDT [facility] Chloride, Plasma 104 97 - 107 mmol/L 02/28/2025 4:37 AM EDT [facility] CO2, Plasma 24 22 - 29 mmol/L 02/28/2025 4:37 AM EDT [facility] Anion Gap 8 6 - 16 mmol/L 02/28/2025 4:37 AM EDT [facility] Total Calcium, Plasma 8.6(L) 8.9 - 10.2 mg/dL 02/28/2025 4:37 AM EDT [facility] eGFRcr 84.6 mL/min/1.7 3m*2 02/28/2025 4:37 AM EDT [facility] Comment:Reported eGFRcr in m L/min/1.73m2 is based the CKD-EPI 2020 equation that does not use a race coefficient. Blood Venous blood specimen / Unknown Venipuncture / Unknown 02/28/2025 4:03 AM EDT 02/28/2025 4:10 AM EDT us Sherlyn Daniel MD LAB BLOOD ORDERABLES Final Res ult [facility] [address] [place] [address] * PERIPHERAL IV (SMARTFORM LINK) (02/27/2025 6:13 [...] IV site covered with: Transparent semipermeable dressing us Sherlyn Daniel MD IV THERAPY ORDERABLES [...] HERNESTO ISCV TR Max PG 21 mmHG HRENESTO ISCV MV dec time 220 ms HERNESTO ISCV MV P1/2t 64 ms HERNESTO ISCV MVA(P1/2t) 3.4 cm2 HERNESTO ISCV TV V2 Vmax 159.0 cm/s HERNESTO ISCV TV MG 3 mmHg HERNESTO ISCV TV max PG 10 mmHg HERNESTO ISCV Ao Root Diam 31 mm HERNESTO ISCV Asc Ao Diam 27 mm HERNESTO ISCV TV V2 VTI 39.5 cm HERNESTO [...] regurgitation. Tricuspid Valve: The leaflets appear thickened. 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 There appears to be [...] is no recent study available for direct lrgq-sm-fdfh comparison. Left Ventricle Based on the linear [...] stenosis. Tricuspid Valve The leaflets appear thickened. 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 There appears to be [...] is no recent study available for direct lyvr-se-bdlr comparison. Wall Scoring Baseline Score Index: 1.00 [...] drawing level. Than... (02/27/2025 10:46 AM EDT) Pathologist [facility] [place] Vancomycin, Peak, Plasma 25.5 20.0 - 40.0 ug/mL 02/27/2025 11:21 AM EDT [facility] Blood Venous blood specimen / Unknown Venipuncture / Unknown 02/27/2025 10:46 AM EDT 02/27/2025 10:52 AM EDT Narrative [facility] - 02/27/2025 11:21 AM EDT Therapeutic Peak level: 20-40ug/mL Supra-therapeutic Peak level: >40 ug/mL us Alejandro AARON LAB BLOOD ORDERABLES Final R esult [facility] [address] [place] [address] * (ABNORMAL) Lipid panel (02/27/2025 4:33 AM EDT) Pathologist [facility] [place] Cholesterol, Plasma 108 <200 mg/dL 02/27/2025 5:14 AM EDT [facility] Comment: Cholesterol Reference Range (age >17 years): Desirable <200 mg/dL Borderline 200 to 239 mg/dL Undesirable >239 mg/dL HDL 28(L) >=40 mg/dL 02/27/2025 5:14 AM EDT [facility] Comment: HDL Cholesterol Reference Ranges (age >17 years): Female, acceptable > or = 50 mg/dL Male, acceptable > or = 40 mg/dL Triglycerides, Plasma 94 <150 mg/dL 02/27/2025 5:14 AM EDT [facility] Comment: Triglyceride Reference Range (age >17 years): Desirable: <150 mg/dL Borderline high: 150 to 199 mg/dL High: 200 to 499 mg/dL Very high: >499 mg/dL Increased risk of pancreatitis: >1000 mg/dL Cholesterol/HDL Ratio 4 02/27/2025 5:14 AM EDT [facility] LDL, Calculated 62 <100 mg/dL 5:14 AM EDT [facility] Comment: LDL Cholesterol Reference Range [...] 12 hours? No 02/27/2025 5:14 AM EDT [facility] Blood Venous blood specimen / Unknown Venipuncture / Unknown 02/27/2025 4:33 AM EDT 02/27/2025 4:42 AM EDT us Alejandro AARON LAB BLOOD ORDERABLES Final R esult [facility] [address] [place] [address] * Hemoglobin A1c (02/27/2025 4:33 AM EDT) Hemoglobin A1c 5.4 <5.7 % 02/27/2025 7:06 AM EDT [facility] Blood Venous blood specimen / Unknown Venipuncture / Unknown 02/27/2025 4:33 AM EDT 02/27/2025 4:45 AM EDT Narrative [facility] - 02/27/2025 7:06 AM EDT HA1C Interpretive Data: Diagnosis of Diabetes: Diabetic > or = 6.5% Pre-diabetic 5.7 to 6.4% Non-diabetic < or = 5.6% Glycemic Targets for Type I and Type II Diabetics: Non- Adults <7.0% Adults <6.0% Children and Adolescents <7.5% Source: [place] [employer]. Standards of medical care in diabetes,2017. Diabetes Care.2017:40 (suppl 1):S1-S135. us Alejandro AARON LAB BLOOD ORDERABLES Final R esult [facility] [address] [place] [address] * (ABNORMAL) Basic metabolic panel (02/27/2025 4:33 AM EDT) Glucose, Plasma 128(H) 74 - 99 mg/dL 02/27/2025 5:14 AM EDT [facility] BUN, Plasma 18 7 - 21 mg/dL 02/27/2025 5:14 AM EDT [facility] Creatinine, Plasma 1.01 0.70 - 1.20 mg/dL 02/27/2025 5:14 AM EDT [facility] BUN/Creatinine Ratio 18 02/27/2025 5:14 AM EDT [facility] Sodium, Plasma 135(L) 136 - 145 mmol/L 02/27/2025 5:14 AM EDT [facility] Potassium, Plasma 4.6 3.6 - 4.9 mmol/L 02/27/2025 5:14 AM EDT [facility] Chloride, Plasma 101 97 - 107 mmol/L 02/27/2025 5:14 AM EDT [facility] CO2, Plasma 24 22 - 29 mmol/L 02/27/2025 5:14 AM EDT [facility] Anion Gap 10 6 - 16 mmol/L 02/27/2025 5:14 AM EDT [facility] Total Calcium, Plasma 9.2 8.9 - 10.2 mg/dL 02/27/2025 5:14 AM EDT [facility] eGFRcr 98.8 mL/min/1.7 3m*2 02/27/2025 5:14 AM EDT [facility] Comment:Reported eGFRcr in m L/min/1.73m2 is based the CKD-EPI 2020 equation that does not use a race coefficient. Blood Venous blood specimen / Unknown Venipuncture / Unknown 02/27/2025 4:33 AM EDT 02/27/2025 4:42 AM EDT us Sherlyn Daniel MD LAB BLOOD ORDERABLES Final Res ult [facility] [address] [place] [address] * (ABNORMAL) CBC W/O Differential (02/27/2025 4:33 AM EDT) WBC Count 9.62 3.70 - 10.30 10*3/uL LAB HEMATOLOGY METHOD 02/27/2025 4:53 AM EDT [facility] RBC Count 4.58(L) 4.60 - 6.10 10*6/uL LAB HEMATOLOGY METHOD 02/27/2025 4:53 AM EDT [facility] HGB 13.1(L) 13.7 - 17.5 g/dL LAB HEMATOLOGY METHOD 02/27/2025 4:53 AM EDT [facility] HCT 40.8 40.0 - 51.0 % LAB HEMATOLOGY METHOD 02/27/2025 4:53 AM EDT [facility] Platelet Count 247 155 - 369 10*3/uL LAB HEMATOLOGY METHOD 02/27/2025 4:53 AM EDT [facility] MCV 89 79 - 98 fL LAB HEMATOLOGY METHOD 02/27/2025 4:53 AM EDT [facility] MCH 28.6 26.0 - 32.0 pg LAB HEMATOLOGY METHOD 02/27/2025 4:53 AM EDT [facility] MCHC 32.1 30.7 - 35.5 g/dL LAB HEMATOLOGY METHOD 02/27/2025 4:53 AM EDT [facility] RDW 13.1 11.5 - 14.5 % LAB HEMATOLOGY METHOD 02/27/2025 4:53 AM EDT [facility] MPV 10.4 8.8 - 12.5 fL LAB HEMATOLOGY METHOD 02/27/2025 4:53 AM EDT [facility] nRBC 0.0 <=0.0 per 100 WBCs LAB HEMATOLOGY METHOD 02/27/2025 4:53 AM EDT [facility] Blood Venous blood specimen / Unknown Venipuncture / Unknown 02/27/2025 4:33 AM EDT 02/27/2025 4:45 AM EDT Sherlyn Daniel MD LAB BLOOD ORDERABLES Final Res ult Performing Organization Address [facility] [place] [address] * Blood Culture (Aerobic/Anaerobet Set) (02/27/2025 4:30 AM EDT) Culture No growth at day 5 GEENA 03/04/2025 5:01 AM EDT [facility] Blood Venous blood specimen / Unknown Venipuncture / Unknown 02/27/2025 4:30 AM EDT 02/27/2025 4:47 AM EDT Sherman Gonzáles MD LAB MICROBIOLOGY - GENERAL O RDERABLES Final Result Performing Organization Address [facility] [place] [address] * Blood Culture (Aerobic/Anaerobet Set) (02/27/2025 4:00 AM EDT) Culture No growth at day 5 GEENA 03/04/2025 5:01 AM EDT [facility] Blood Venous blood specimen / Unknown Venipuncture / Unknown 02/27/2025 4:00 AM EDT 02/27/2025 4:47 AM EDT Sherman Gonzáles MD LAB MICROBIOLOGY - GENERAL O RDERABLES Final Result Performing Organization Address [facility] [place] [address] * XR Chest 1 View (02/27/2025 2:37 [...] MD IMG XR PROCEDURES Final Result * (ABNORMAL) Routine Culture and Gram Stain (02/26/2025 10:10 AM EDT) Culture Light Growth 03/01/2025 3:23 PM EDT [facility] Culture Staphylococcus aureus(A) GEENA 03/01/2025 3:23 PM EDT [facility] Foreign Body Bone structure of [...] ORD ERABLES Final Result Performing Organization Address City/[facility]/[place] [address] * Anaerobic Culture (02/26/2025 10:10 AM EDT) Culture No anaerobes isolated 03/03/2025 5:50 AM EDT [facility] Foreign Body Bone structure of sternum / Unknown 02/26/2025 10:10 AM EDT 02/26/2025 11:21 AM EDT Comment:Pre-op diagnosis: Chest wall abscess [L02.213] Sherlyn Daniel MD LAB MICROBIOLOGY - GENERAL ORD ERABLES Final Result Performing Organization Address [facility] [place] [address] * (ABNORMAL) POCT arterial blood gas gem (02/26/2025 9:42 AM EDT) pH, Arterial 7.42 7.35 - 7.45 02/26/2025 9:44 AM EDT [facility] pCO2, Arterial 41 32 - 45 mm Hg 02/26/2025 9:44 AM EDT [facility] pO2, Arterial 105 83 - 108 mm Hg 02/26/2025 9:44 AM EDT [facility] SO2, Arterial 99(H) 94 - 98 % 02/26/2025 9:44 AM EDT [facility] Base Excess, Arterial 1.9 -2 - 3 mmol/L 02/26/2025 9:44 AM EDT [facility] HCO3, Arterial 26.6(H) 22 - 26 mmol/L 02/26/2025 9:44 AM EDT [facility] Total Hemoglobin, Arterial, Whole Blood 13.6(L) 13.7 - 17.5 g/dL 02/26/2025 9:44 AM EDT [facility] Hematocrit, Arterial 41.0 40 - 51.0 % 02/26/2025 9:44 AM EDT [facility] Sodium, Arterial 135(L) 136 - 145 mmol/L 02/26/2025 9:44 AM EDT [facility] Potassium, Arterial 4.1 3.6 - 4.9 mmol/L 02/26/2025 9:44 AM EDT [facility] Chloride, Whole Blood 104 97 - 107 mmol/L 02/26/2025 9:44 AM EDT [facility] Glucose, Arterial 106(H) 74 - 99 mg/dL 02/26/2025 9:44 AM T [facility] Ionized Calcium, Arterial 4.7 4.6 - 5.1 mg/dL 02/26/2025 9:44 AM T [facility] Lactate, Arterial 0.6 0.5 - 1.6 mmol/L 02/26/2025 9:44 AM EDT [facility] Body Temperature 37.0 Celsius 02/26/2025 9:44 AM EDT [facility] pH, Temp Corrected, Arterial 7.42 7.35 - 7.45 02/26/2025 9:44 AM EDT [facility] pCO2, Temp Corrected, Arterial 41 32 - 45 mm Hg 02/26/2025 9:44 AM EDT [facility] pO2, Temp Corrected, Arterial 105 83 - 108 mm Hg 02/26/2025 9:44 AM EDT [facility] Wrapper Cashier ID Carina Jordan 02/26/2025 9:44 AM EDT [facility] Blood, Arterial Whole blood specimen / Unknown 02/26/2025 9:42 AM EDT 02/26/2025 9:44 AM EDT us Sherlyn Daniel MD LAB POINT OF CARE TE ST DOCKED DEVICE UNSOLICITED RESULTS Final Result [facility] [address] [place] [address] * (ABNORMAL) Abscess Culture and Gram Stain (02/26/2025 9:34 AM EDT) Culture Light Growth 03/01/2025 3:22 PM EDT [facility] Culture Staphylococcus aureus(A) GEENA 03/01/2025 3:22 PM EDT [facility] Comment:The organism value f or this result has been updated. These results have been appended to the previously preliminary verified report. Gram Stain Result Few Polymorphonuclear leukocytes(A) 03/01/2025 3:22 PM EDT [facility] Gram Stain Result Few Gram positive cocci in pairs(A) 03/01/2025 3:22 PM EDT [facility] Swab Bone structure of sternum [...] aureus Vancomycin GEENA 1 ug/ml: Susceptible us Sherlyn Daniel MD LAB MICROBIOLOGY - GENERAL ORD ERABLES Final Result [facility] [address] [place] [address] * Fungal Culture, Routine (02/26/2025 9:34 AM EDT) Culture No Fungal Growth at 1 Week 03/06/2025 9:03 AM EDT [facility] Swab Bone structure of sternum / Unknown 02/26/2025 9:34 AM EDT 02/26/2025 11:01 AM EDT Comment:Pre-op diagnosis: Chest wall abscess [L02.213] us Sherlyn Daniel MD LAB MICROBIOLOGY - GENERAL ORD ERABLES Final Result Performing Organization Address City/[facility]/ZIP Co de Phone Number [facility] [address] [place] [address] * Anaerobic Culture (02/26/2025 9:34 AM EDT) Culture No anaerobes isolated 03/03/2025 5:50 AM EDT [facility] Swab Bone structure of sternum / Unknown 02/26/2025 9:34 AM EDT 02/26/2025 11:01 AM EDT Comment:Pre-op diagnosis: Chest wall abscess [L02.213] Sherlyn Daniel MD LAB MICROBIOLOGY - GENERAL ORD ERABLES Final Result Performing Organization Address City/[facility]/ZIP Co de Phone Number [facility] [address] [place] [address] * Type and screen (02/25/2025 4:54 PM [...] ORDERABL ES Final Result Performing Organization Address City/[facility]/ZIP Co de Phone Number BLOOD BANK [address] [place] [address], * (ABNORMAL) Wound Culture and Gram Stain (02/25/2025 4:46 AM EDT) CULTURE READING WOUND Moderate Growth 02/27/2025 3:19 PM EDT [facility] CULTURE READING WOUND Staphylococcus aureus(A) GEENA 02/27/2025 3:19 PM EDT [facility] Comment:The organism value f or this result has been updated. These results have been appended to the previously preliminary verified report. Gram Stain Result Numerous Polymorphonuclear leukocytes(A) 02/27/2025 3:19 PM EDT [facility] Gram Stain Result Numerous Gram positive cocci in pairs(A) 02/27/2025 3:19 PM EDT [facility] Gram Stain Result Numerous Gram positive cocci in clusters(A) 02/27/2025 3:19 PM EDT [facility] Swab Skin structure / Unknown [...] MICROBIOLOGY - GENERAL ORD ERABLES Final Result [facility] [address] [place] [address] * (ABNORMAL) Bacterial ID Gram Positive (02/25/2025 3:18 AM EDT) Staphylococcus Result Detected( A) Not Detected 02/26/2025 4:46 AM EDT [facility] Comment:Assess if contaminan t or clinically relevant pathogen. Consider clinical stability and immune status of patient. Blood Venous blood specimen / Unknown Venipuncture / Unknown 02/25/2025 3:18 AM EDT 02/25/2025 4:04 AM EDT Narrative [facility] - 02/26/2025 4:46 AM EDT [...] MICROBIOLOGY - GENERAL ORD ERABLES Final Result [facility] [address] [place] [address] * Hepatitis C Virus (HCV) Quantitative PCR - ED (02/25/2025 3:18 AM EDT) Hepatitis C Virus (HCV) Quantitative Interpretation Not Detected Not Detected. 02/27/2025 2:45 PM EDT [facility] Blood Venous blood specimen / Unknown Venipuncture / Unknown 02/25/2025 3:18 AM EDT 02/25/2025 3:53 AM EDT Narrative [facility] - 02/27/2025 2:45 PM EDT The [employer] M2000 HCV test is a Real Time [...] assay is FDA approved for clinical use. us Franco Guillory MD LAB BLOOD ORDERABLES Final Res ult Performing Organization Address City/[facility] [place] [address] * ED HIV 1/2 Antibody/Antigen Screen w/Reflex to HIV 1/2 Differentiation (02/25/2025 3:18 AM EDT) HIV 1 & 2 Antibody/Antigen Screen Non Reactive Non Reactive 02/25/2025 4:35 AM EDT [facility] Comment:Screening for HIV 1 & 2 antibodies, and P24 antigen is NONREACTIVE. No confirmatory testing is required. Blood Venous blood specimen / Unknown Venipuncture / Unknown 02/25/2025 3:18 AM EDT 02/25/2025 3:53 AM EDT Result [facility] us Franco Guillory MD LAB BLOOD ORDERABLES Final Res ult Performing Organization Address [facility] Co de Phone Number [facility] [address] [place] [address] * (ABNORMAL) Hepatitis C Antibody - ED (02/25/2025 3:18 AM EDT) Hepatitis C Antibody Positive(A ) Negative 02/25/2025 4:40 AM EDT [facility] Blood Venous blood specimen / Unknown Venipuncture / Unknown 02/25/2025 3:18 AM EDT 02/25/2025 3:53 AM EDT us Franco Guillory MD LAB BLOOD ORDERABLES Final Res ult [facility] [address] [place] [address] * (ABNORMAL) Blood Culture (Aerobic/Anaerobet Set) (02/25/2025 3:18 AM EDT) Culture Staphylococcus aureus(AA) GEENA 02/27/2025 1:21 PM EDT [facility] Comment: Isolated from aerobic and anaerobic culture bottles. The organism value for this result has been updated. These results have been appended to the previously preliminary verified report. Culture Staphylococcus coagulase negative(AA) GEENA 02/27/2025 1:21 PM EDT [facility] Comment: Isolated from aerobic and anaerobic culture bottles. Isolated from one bottle only in a 24-hour period. If workup required, contact bacteriology at [phone]. This organism may be associated with a contaminated culture. The organism value for this result has been updated. These results have been appended to the previously preliminary verified report. Gram Stain Gram positive cocci in clusters(AA) 02/27/2025 1:21 PM EDT [facility] Comment: Organism seen in Anaerobic Blood Culture Bottle. Positivity Date and Time to Detection: 02/25/2025. at 00 Day(s) and 16 Hour(s). This is an appended report. These results have been appended to a previously preliminary verified report. Gram Stain Gram positive cocci in clusters(AA) 02/27/2025 1:21 PM EDT [facility] Comment: Organism seen in Aerobic Blood Culture Bottle. Positivity Date and Time to Detection: 02/25/2025 at 00 Day(s) and 16 Hour(s). This is an appended report. These results have been appended to a previously preliminary verified report. Blood Venous blood specimen / Unknown Venipuncture / Unknown 02/25/2025 3:18 AM EDT 02/25/2025 4:04 AM EDT Narrative [facility] - 02/27/2025 1:21 PM EDT Anaerobic blood culture entered in duplicate. Organism Antibiotic Method Susceptibility Staphylococcus aureus Daptomycin GEENA <=1 ug/ml: Susceptible Staphylococcus aureus Linezolid GEENA <=1 ug/ml: Susceptible Staphylococcus aureus Oxacillin GEENA <=0.25 ug/ml: Susceptible Staphylococcus aureus Vancomycin GEENA 1 ug/ml: Susceptible Franco Guillory MD LAB MICROBIOLOGY - GENERAL ORD ERABLES Final Result [facility] [address] [place] [address] * (ABNORMAL) Blood Culture (Aerobic/Anaerobet Set) (02/25/2025 3:18 AM EDT) Culture Staphylococcus aureus(AA) 03/03/2025 12:34 PM EDT [facility] Comment: For susceptibility results refer to: - [id number] Isolated from aerobic and anaerobic culture bottles. The organism value for this result has been updated. These results have been appended to the previously preliminary verified report. Gram Stain Gram positive cocci in clusters(AA) 03/03/2025 12:34 PM EDT [facility] Comment: Organism seen in Anaerobic Blood Culture Bottle. Positivity Date and Time to Detection: 02/26/2025. at 00 Day(s) and 19 Hour(s). This is an appended report. These results have been appended to a previously preliminary verified report. Gram Stain Gram positive cocci in clusters(AA) 03/03/2025 12:34 PM EDT [facility] Comment: Organism seen in Aerobic [...] MICROBIOLOGY - GENERAL ORD ERABLES Final Result [facility] [address] [place] [address] * (ABNORMAL) Sed rate, automated (02/25/2025 3:18 AM EDT) Sedimentation Rate 65(H) <15 mm/hr 2024 3:54 AM EDT [facility] Blood Venous blood specimen / Unknown Venipuncture / Unknown 02/25/2025 3:18 AM EDT 02/25/2025 3:40 AM EDT Franco Guillory MD LAB BLOOD ORDERABLES Final Res ult Performing Organization Address [facility] Co de Phone Number [facility] [address] [place] [address] * (ABNORMAL) C-Reactive protein (02/25/2025 3:18 AM EDT) CRP, Plasma 282.5(H) <=8.0 mg/L 02/25/2025 4:23 AM EDT [facility] Blood Venous blood specimen / Unknown Venipuncture / Unknown 02/25/2025 3:18 AM EDT 02/25/2025 3:53 AM EDT Narrative [facility] - 02/25/2025 4:23 AM EDT This CRP test is appropriate for assessment of infection, systemic inflammation and/or tissue injury. To assess cardiovascular disease risk order high sensitivity CRP (CRPH). Franco Guillory MD LAB BLOOD ORDERABLES Final Res ult Performing Organization Address [facility] de Phone Number [facility] [address] [place] [address] * Phosphorus (02/25/2025 3:18 AM EDT) Phosphorus, Plasma 2.7 2.5 - 4.5 mg/dL 02/25/2025 4:23 AM EDT [facility] Blood Venous blood specimen / Unknown Venipuncture / Unknown 02/25/2025 3:18 AM EDT 02/25/2025 3:53 AM EDT Franco Guillory MD LAB BLOOD ORDERABLES Final Res ult Performing Organization Address City/[facility]/ZIP Co de Phone Number [facility] [address] [place] [address] * Magnesium (02/25/2025 3:18 AM EDT) Magnesium, Plasma 2.2 1.9 - 2.4 mg/dL 02/25/2025 4:23 AM EDT [facility] Blood Venous blood specimen / Unknown Venipuncture / Unknown 02/25/2025 3:18 AM EDT 02/25/2025 3:53 AM EDT us Franco Guillory MD LAB BLOOD ORDERABLES Final Res ult [facility] [address] [place] [address] * (ABNORMAL) CMP (02/25/2025 3:18 AM EDT) Glucose, Plasma 132(H) 74 - 99 mg/dL 02/25/2025 4:23 AM EDT [facility] BUN, Plasma 13 7 - 21 mg/dL 02/25/2025 4:23 AM EDT [facility] Creatinine, Plasma 0.86 0.70 - 1.20 mg/dL 02/25/2025 4:23 AM EDT [facility] BUN/Creatinine Ratio 15 02/25/2025 4:23 AM EDT [facility] Sodium, Plasma 137 136 - 145 mmol/L 02/25/2025 4:23 AM EDT [facility] Potassium, Plasma 3.7 3.6 - 4.9 mmol/L 02/25/2025 4:23 AM EDT [facility] Chloride, Plasma 101 97 - 107 mmol/L 02/25/2025 4:23 AM EDT [facility] CO2, Plasma 24 22 - 29 mmol/L 02/25/2025 4:23 AM EDT [facility] Anion Gap 12 6 - 16 mmol/L 02/25/2025 4:23 AM EDT [facility] Total Calcium, Plasma 9.2 8.9 - 10.2 mg/dL 02/25/2025 4:23 AM EDT [facility] Total Protein 7.4 6.3 - 7.9 g/dL 02/25/2025 4:23 AM EDT [facility] Albumin, Plasma 3.5 3.5 - 5.2 g/dL 02/25/2025 4:23 AM EDT [facility] AST, Plasma 20 10 - 50 U/L 02/25/2025 4:23 AM EDT [facility] Comment:Hemolyzed, result ma y be falsely increased. ALT, Plasma 16 10 - 50 U/L 02/25/2025 4:23 AM EDT [facility] Alkaline Phosphatase, Plasma 100 40 - 115 U/L 02/25/2025 4:23 AM EDT [facility] Total Bilirubin, Plasma 0.7 0.2 - 1.1 mg/dL 02/25/2025 4:23 AM EDT [facility] eGFRcr 115.1 mL/min/1.7 3m*2 02/25/2025 4:23 AM EDT [facility] Comment:Reported eGFRcr in m L/min/1.73m2 is based the CKD-EPI 2020 equation that does not use a race coefficient. Blood Venous blood specimen / Unknown Venipuncture / Unknown 02/25/2025 3:18 AM EDT 02/25/2025 3:53 AM EDT us Franco Guillory MD LAB BLOOD ORDERABLES Final Res ult [facility] [address] [place] [address] * (ABNORMAL) CBC w/diff (02/25/2025 3:18 AM EDT) WBC Count 9.74 3.70 - 10.30 10*3/uL LAB HEMATOLOGY METHOD 02/25/2025 3:42 AM EDT [facility] RBC Count 5.34 4.60 - 6.10 10*6/uL LAB HEMATOLOGY METHOD 02/25/2025 3:42 AM EDT [facility] HGB 15.5 13.7 - 17.5 g/dL LAB HEMATOLOGY METHOD 02/25/2025 3:42 AM EDT [facility] HCT 45.4 40.0 - 51.0 % LAB HEMATOLOGY METHOD 02/25/2025 3:42 AM EDT [facility] Platelet Count 167 155 - 369 10*3/uL LAB HEMATOLOGY METHOD 02/25/2025 3:42 AM EDT [facility] MCV 85 79 - 98 fL LAB HEMATOLOGY METHOD 02/25/2025 3:42 AM EDT [facility] MCH 29.0 26.0 - 32.0 pg LAB HEMATOLOGY METHOD 02/25/2025 3:42 AM EDT [facility] MCHC 34.1 30.7 - 35.5 g/dL LAB HEMATOLOGY METHOD 02/25/2025 3:42 AM EDT [facility] RDW 13.2 11.5 - 14.5 % LAB HEMATOLOGY METHOD 02/25/2025 3:42 AM EDT [facility] MPV 10.0 8.8 - 12.5 fL LAB HEMATOLOGY METHOD 02/25/2025 3:42 AM EDT [facility] nRBC 0.0 <=0.0 per 100 WBCs LAB HEMATOLOGY METHOD 02/25/2025 3:42 AM EDT [facility] Differential Type Automated LAB HEMATOLOGY METHOD 02/25/2025 3:42 AM EDT [facility] Neutrophils % 80 % LAB HEMATOLOGY METHOD 02/25/2025 3:42 AM EDT [facility] Lymphocytes % 10 % LAB HEMATOLOGY METHOD 02/25/2025 3:42 AM EDT [facility] Monocytes % 8 % LAB HEMATOLOGY METHOD 02/25/2025 3:42 AM EDT [facility] Eosinophils % 1 % LAB HEMATOLOGY METHOD 02/25/2025 3:42 AM EDT [facility] Basophils % 0 % LAB HEMATOLOGY METHOD 02/25/2025 3:42 AM EDT [facility] Immature Granulocytes % 1 % LAB HEMATOLOGY METHOD 02/25/2025 3:42 AM EDT [facility] Neutrophils Absolute 7.79(H) 1.60 - 6.10 10*3/uL LAB HEMATOLOGY METHOD 02/25/2025 3:42 AM EDT [facility] Lymphocytes Absolute 1.00(L) 1.20 - 3.90 10*3/uL LAB HEMATOLOGY METHOD 02/25/2025 3:42 AM EDT [facility] Monocytes Absolute 0.76 0.30 - 0.90 10*3/uL LAB HEMATOLOGY METHOD 02/25/2025 3:42 AM EDT [facility] Eosinophils Absolute 0.11 0.00 - 0.50 10*3/uL LAB HEMATOLOGY METHOD 02/25/2025 3:42 AM EDT [facility] Basophils Absolute 0.02 0.00 - 0.10 10*3/uL LAB HEMATOLOGY METHOD 02/25/2025 3:42 AM EDT [facility] Immature Granulocytes Absolute 0.06 0.00 - 0.06 10*3/uL LAB HEMATOLOGY METHOD 02/25/2025 3:42 AM EDT [facility] Blood Venous blood specimen / Unknown Venipuncture / Unknown 02/25/2025 3:18 AM EDT 02/25/2025 3:40 AM EDT Narrative [facility] - 02/25/2025 3:42 AM EDT Therapeutic decision making should be based on absolute values, rather than percentages. us Franco Gulilory MD LAB BLOOD ORDERABLES Final Res ult [facility] [address] [place] [address] documented in this encounter Visit Diagnoses Diagnosis [...] doses, First dose (after last modification) on Wed02/26/25 at 1200, Last dose on Wed03/03/25 at 0400, Routine, Recovery(Phase II-Outpatient)/On Unit(Inpatient) Given 03/01/2025 3:03 AM EDT 1,000 mg Given 02/28/2025 9:04 PM EDT 1,000 mg Given 02/28/2025 3:54 PM EDT 1,000 mg acetaminophen (Tylenol) tablet 1,000 mg 1,000 mg, Oral, Every 6 hours scheduled, 8 doses, First dose (after last modification) on Sybil 03/01/25 at 1000, Last dose on Wed03/03/25 at 0400, Routine, Recovery(Phase II-Outpatient)/On Unit(Inpatient) Given [...] RN)2029 (Given - Provider: Marsha Miranda RN) 0836 (Given - Provider: Gallo Bhatt RN)2118 (Given - Provider: Gulshan Toney RN) 0824 (Given - Provider: Gallo Bhatt RN) ceFAZolin (Ancef) injection 2 g 2 g, Intravenous, Every 8 hours, First dose on Wed02/28/25 at 1000, Until Discontinued, Routine 0251 (Given - Provider: Yared Cartwright RN)0925 (Given - Provider: Mayelin Dorsey RN)1814 (Given - Provider: Mayelin Dorsey RN) 0253 (Given - Provider: Marsha Miranda RN)1021 (Given - Provider: Gallo Bhatt RN)1836 (Given [...] Marsha Miranda RN - Reason: Patient/family refused) 08 (Not Given - Provider: Gallo Bhatt RN [...] Provider: Yared Cartwright RN)1421 (Given - Provider: Mayelin Dorsey RN)2214 (Given - Provider: Marsha Miranda RN) 0624 (Given - Provider: Marsha Miranda RN)141 (Given - Provider: Gallo Bhatt RN)211 (Given - Provider: Gulshan Toney RN) 0606 (Given - Provider: Gulshan Toney RN)1400 (Canceled [...] 0927 (Medication Removed - Provider: Mayelin Dorsey RN)2030 (Medication Applied - Provider: Marsha Miranda RN) [...] Bhatt RN)1836 (Given - Provider: Gallo Bhatt RN)2118 (Given [...] on 02/25/25 at 2100, Until Discontinued, Routine 214 (Not Given - Provider: Marsha Miranda RN - Reason: Patient/family refused) 2118 (Not Given - Provider: Gulshan Toney RN - Reason: Patient/family refused) sodium chloride 0.9 % flush 10 mL(Linked Group 1) 10 mL, Intravenous, Every 12 hours, First dose on 02/25/25 at 0425, Until Discontinued, Routine 0334 (Return to [facility] - Provider: Yared Cartwright RN)1814 (Given - Provider: Mayelin Dorsey RN) 0405 (Given - Provider: Marsha Miranda RN)1535 (Given - Provider: Gallo Bhatt RN) 0358 (Given - Provider: Gulshan Toney RN) sodium chloride 0.9 % flush 10 mL 10 mL, Intravenous, Every 12 hours, First dose on 03/04/25 at 1745, Until Discontinued, Routine 1814 (Given - Provider: Mayelin Dorsey RN) 0618 (Given - Provider: Marsha Miranda, SEBASTIAN)1721 (Given - Provider: Gallo Bhatt, SEBASTIAN) 0609 (Given - Provider: Gulshan Toney RN) PRN Medication Order 03/04/2025 03/05/2025 03/06/2025 acetaminophen (Tylenol) tablet 650 mg(Linked Group 2) 650 mg, Oral, Every 4 hours PRN, Starting on 03/03/25 at 1000, Until Wed03/06/25 at 1535, Routine, [...] other interventions 1424 (Given - Provider: Mayelin Dorsey, SEBASTIAN)1814 (Given - Provider: Mayelin Dorsey RN)2214 (Given - Provider: Marsha Miranda, SEBASTIAN) 0304 (Given - Provider: Marsha Miranda, RN)0839 (Given - Provider: Gallo Bhatt RN)1633 [...] documented as of this encounter Care Teams Hazardous Sub[employer] Engineer Relationship Specialty Start Date End Date Pcp, [place] [address] PCP - General Family Medicine 02/25/25 Francisco Javier Eller MD [address] [place] [id number] Manager Pool 03/02/25 documented as of this encounter
--- OUTSIDE RECORDS SUMMARY | 2025-02-26 08:43 | XMS_ITS | Encounter Summary ---
Author Organization Healthcare Address [address] [place] [address] Care Team Providers Care Glass Vial Filler Name Role Phone Pcp, No Primary Care Provider Unavailabl e Reason for Visit * Auth/Cert (Routine) Specialty Diagnoses / Procedures Referred By Kerry ramirez Referred To Contact Diagnoses Sternal wound dehiscence, initial encounter chest abscess at surgical scar near mediastinum with hx cabg 2021 at [facility], Sherlyn Hunt MD [address] [place] [address] Phone: tel: fax: P[facility] A Emergency Department [address] [place] [address] Phone: tel: Referral ID Status Reason Start Date Expiration Date Visits Re quested Visits Authorized [id number] 1 1 Encounter Details Date Type Department Care Team (Late st Contact Info) Description 02/26/2025 8:43 AM EDT Anesthesia Event [facility] A OPERATING ROOM [address] [place] [address] Praneeth Jasmine MD [address] [place] [id number] Jeremy Franco MD [address] [place] [address] Anesthesia Record Procedure Summary Procedure [...] induction. 0853 An Intubation 0907 Anesthesia Ready 09 Proc Start 0938 Aaron ABG drawn 1025 [...] Airways Type Details Placement Removal Wound 02/26/25; 941; Surgical; Open Surg; Sternum; Upper, Mid 02/26/25 [...] Infiltrated 02/26/25 0714 by Alexander Barnard 02/27/25 1630 by Mary Blanco RN ETT Placement Date: [...] any time in the past 12 m [facility], were you homeless or living in a usp (including now)? No 02/27/2025 Utilities Answer Date Recorded In the past 12 months has th e [employer], gas, oil, or water [employer] threatened to shut off services in your [...] No Risk Indicated 02/26/2025 8:00 PM EDT Twietme kaz, Virginia B, RN * Question Answer Date of Assessment Author 1. Wish to be (Past 1 Month) No 02/26/2025 8:00 PM EDT Virginia Claros RN 2. Non-Specific Active Suici omny Thoughts (Past 1 Month) No 02/26/2025 8:00 [...] portions of the procedure(s) and [facility]. See resident [...] 02/26/2025 9:53 AM EDT Associated attestation - rPaneeth Jasmine MD - 02/26/2025 9:53 AM EDT I was present during all critical and franks portions of the procedure(s) and immediately available [facility] services the entire duration. See resident note for details. * Anesthesia Preprocedure Evaluation - Praneeth Jasmine MD - 02/26/2025 7:02 AM EDT Patient: Alex Amaya Procedure Information Date/Time: 02/26/25 0900 Procedure: CHEST WASHOUT, REMOVAL OF STERNAL PLATES Location: [facility]-A OR Diane / [facility] OR Surgeons: Sherlyn [...] Description 03/27/2025 9:00 AM EDT Office Visit [address] [phone] Keny Chin MD [address] [place] [phone] 03/29/2025 12:20 PM EDT Office Visit [facility] [address], [address] [place] [address] Keny Tristan MD [address] [place] [phone] 04/10/2025 9:00 AM EDT Office Visit [address] [phone] Leela Chin MD [address] [place] [address] [place] [address] documented as of this encounter Procedures Procedure Name Priority Date/Time Associated Diagnosis Comments PB ANESTHESIA NON-TIMED PROCEDURE PLACEHOLDER Routine 02/26/2025 9:33 AM EDT PB ANESTHESIA PLACEHOLDER Routine 02/26/2025 8:53 AM EDT GA AN ELECTIVE ENDOTRACHEAL AIRWAY Routine 02/26/2025 8:53 [...] MD ANESTHESIA ORDERABLES Final Res ult * GA AN ELECTIVE ENDOTRACHEAL AIRWAY, PB ANESTHESIA PLACEHOLDER [...] Additional Comments Atraumatic. No change to dentition. us Praneeth Jasmine MD ANESTHESIA ORDERABLES Final Res [...] documented as of this encounter Care Teams Glass Vial Filler Relationship Specialty Start [place] [address] PCP - General Family Medicine 02/25/25 documented as of this encounter
--- OUTSIDE RECORDS SUMMARY | 2025-02-26 09:00 | XMS_ITS | Encounter Summary ---
Author Organization Healthcare Address [address] [place] [address] Care Team Providers Care Die Stamper Name Role Phone Pcp, No Primary Care Provider Unavailabl e Reason for Visit * Reason Comments Wound Check * Auth/Cert (Routine) Specialty Diagnoses / Procedures Referred By Contac t Referred To Contact Diagnoses Sternal wound dehiscence, initial encounter chest abscess at surgical scar near mediastinum with hx cabg 2021 at [facility] Sherlyn Daniel MD [address] [address] Phone: tel: fax: [facility] A Emergency Department [address] [place] [address] Phone: tel: Referral ID Status Reason Start Date Expiration Date Visits Re quested Visits Authorized [id number] 1 1 Encounter Details Date Type Department Care Team (Late st Contact Info) Description 02/26/2025 9:00 AM EDT - 02/26/2025 11:30 AM EDT Surgery [facility] OPERATING ROOM [address] [place] [phone] Sherlyn Daniel MD [address] [address] CHEST WASHOUT, REMOVAL OF STERNAL [...] any time in the [facility], were you homeless or living in a assisted (including now)? No 02/27/2025 Utilities Answer Date Recorded In the past 12 months has th e electric, Vinobo, oil, or water [employer] threatened to shut off services in your [...] 1 each 5 04/10/20 25 HYDROcodone-acetami nophen ([place]) 5-325 MG tablet Take 1 tablet by [...] PCP name and Address: Pcp, [place] [address] [facility] [address] Referring provider name and address: Stephen Tello, SONYA [address] [place] [address] [place], [place] Chief Concern, Brief History of Present Illness, and Hospital Course Alex Amaya is a 34 y.o. male with history of IV drug use on suboxone, infectious endocarditisrequiring tricuspid valve repair in [place] in 2019. He states that he had to have several incision and drainages of the superior aspect of his sternotomy scar that occurred in the medical facility at the custodial that he was in due to drainage [...] and got worse so he went to [facility] where he was found to have the [...] medications were sent to [facility] - [place], [place] - [address], [facility] [address] ceFAZolin injection These medications were sent to [facility] - [place], [place] - [address] [facility] [address] lidocaine 5 % patch methocarbamol 750 MG [...] and De Lucas procedure at [facility] ([place]) - OSH CT imaging uploaded and reviewed - 02/25: BCx (+) staph aureus - Underwent chest washout, wound debridement, removal of sternal plates, and wound vac placement on02/[address] Daniel (silver sponge so no WV change til Wednesday) - TTE shows LVEF 59%, mod dilated RV with nl RV fx. TV leaflets thickened. 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 There appears to be restricted [...] Post-Operative Pain - Continue home Suboxone - [facility] Obesity (POA) - BMI 33.47 - Complicates [...] 03/08/2025 2:00 PM Keny Tristan MD [facility] 03/12/2025 9:40 AM Sherlyn Daniel MD [facility] 03/26/2025 11:40 AM Sherlyn Daniel MD [facility] 03/27/2025 9:00 AM Keny Chin MD [facility] 04/10/2025 9:00 AM Leela Chin MD [facility] [place] Follow-up: Francisco [facility] [place] [address] Go on 04/26/2025 Your appointment time is 2:10pm Please arrive 15 minutes early and bring bottles of medication [facility] [address] [place] [id number] Go on 03/12/2025 03/12/25 at 11:30 AM - Infusion Center for PICC and labs Wound Vac Changes MWF - same location, but in Physical Therapy Department - First Appointment 03/14/25 9:00 AM [facility] [address] [place] [address] Follow up for IV antibiotics and supplies Stephen Tello, SONYA [address] [place] [address] [facility] Test Results Pending At Discharge Pending Labs [...] Note Alex Amaya 34 y.o. male CSN: [id number] Admission: 02/25/2025 2:42 AM Primary Problem: Sternal wound dehiscence, initial encounter Primary Economic Development Specialist: Primary Caregiver: Self Assistance Available at Discharge: Availability of Care Givers (#Hours): 24 hours, No assistance needed Family/Economic Development Specialist(s) Willingness Assessed to care for patient at [...] 30 days Follow-up: Francisco Javier [facility] [place] [id number] Go on 04/26/2025 Your appointment time is 2:10pm Please arrive 15 minutes early and bring bottles of medication [facility] [address] [facility] [address] [place] [phone] Go on 03/12/2025 03/12/25 at 11:30 AM - Infusion Center for PICC and labs Wound Vac Changes MWF - same location, but in Physical Therapy Department - First Appointment 03/14/25 9:00 AM [facility] [address] [place] [address] Follow up for IV antibiotics and supplies Stephen Tello, SONYA [address] [place] [address] [facility] Discharge Transportation: Transportation Anticipated: family or friend [...] vac changes and then will go to [facility]. S/O will assist and transport. [...] note were not included. 798 Narcan Nasal Redig: Rescue Guide for Opioid Overdose Step 1 [...] for use in the nose. * [facility] Martins - 03/06/2025 9:41 AM EDT Images from the original note were not included. [id number] Methocarbamol Brand Name(s): Robaxin??; also available generically [...] be awakened, immediately call emergency services at 291. What OTHER INFORMATION should I know? Keep all appointments with your doctor. Do not let anyone else take your medication. Ask your pharmacist any questions you have about refilling your prescription. It is important for you to keep a written list of all of the prescription and nonprescription (weuz-ihv-uyhxojr) medicines you are taking, as well as [...] or pharmacist about specific clinical use. The [place] [employer] represents that the information provided hereunder was formulated with a reasonable standard of care, and in conformity with professional standards in the field. The [place] [employer] makes no representations or warranties, express or implied, including, but not limited to, any implied warranty of merchantability and/or fitness for a particular purpose, with respect to such information and specifically disclaims all such warranties. Users are advised that decisions regarding drug therapy are complex medical decisions requiring the independent, informed decision of an appropriate health day care home mother, and the information is provided for informational purposes only. The entire monograph for a drug should be reviewed for a thorough understanding of the drug's actions, uses and side effects. The [place] [employer] does not endorse or recommend the use of any drug.The information is not a substitute for medical care. AHFS?? Patient Medication Information?. ?? Copyright, 2023. The [place]??, [address], [address], [place], [place]. All Rights Reserved. Duplication for commercial use must be authorized by [facility]. Selected Revisions: May 18, 2017. AHFS?? Patient Medication Information?. ?? Copyright, 2024 * Tyler Easley - Barbara Martins - 03/06/2025 9:41 AM EDT Images from the original note were not included. [id number] Lidocaine Transdermal Patch Brand Name(s): Absorbine Jr?? [...] or years after a shingles infection). Nonprescription (ugla-lrz-xxnnyfg) lidocaine (Absorbine Jr, Aspercreme, Lidoca re, Salonpas, [...] or doctor for a copy of the adult family home program manager's information for the patient. Are there [...] if you have or have ever had eddrwwq-6-iwfdywcuo dehydrogenase (G-6PD) deficiency (an inherited blood disorder), [...] and out of their sight and reach. [email or web address] Unneeded medications should be disposed of in [...] of all of the prescription and nonprescription (jrza-sfu-wlxcfmh) medicines you are taking, as well as [...] or pharmacist about specific clinical use. The [place] [employer] represents that the information provided hereunder was formulated with a reasonable standard of care, and in conformity with professional standards in the field. The [place] [employer] makes no representations or warranties, express or implied, including, but not limited to, any implied warranty of merchantability and/or fitness for a particular purpose, with respect to such information and specifically disclaims all such warranties. Users are advised that decisions regarding drug therapy are complex medical decisions requiring the independent, informed decision of an appropriate health day care home mother, and the information is provided for informational purposes only. The entire monograph for a drug should be reviewed for a thorough understanding of the drug's actions, uses and side effects. The [employer] does not endorse or recommend the use of any drug.The information is not a substitute for medical care. AHFS?? Patient Medication Information?. ?? Copyright, 2023. The [employer]??, [address], [address], [place]. All Rights Reserved. Duplication for commercial use must be authorized by [facility]. Selected Revisions: March 18, 2021. AHFS?? Patient Medication Information?. ?? Copyright, 2024 * Tyler Easley - Barbara Martins - 03/06/2025 9:41 AM EDT Images from the original note were not included. [id number] Cefazolin Injection Brand Name(s): Ancef?, Kefzol?; also [...] of all of the prescription and nonprescription (dote-ils-ygnetnf) medicines you are taking, as well as [...] or pharmacist about specific clinical use. The [place] [employer] represents that the information provided hereunder was formulated with a reasonable standard of care, and in conformity with professional standards in the field. The [place] [employer] makes no representations or warranties, express or implied, including, but not limited to, any implied warranty of merchantability and/or fitness for a particular purpose, with respect to such information and specifically disclaims all such warranties. Users are advised that decisions regarding drug therapy are complex medical decisions requiring the independent, informed decision of an appropriate health day care home mother, and the information is provided for informational purposes only. The entire monograph for a drug should be reviewed for a thorough understanding of the drug's actions, uses and side effects. The [place] [employer] does not endorse or recommend the use of any drug.The information is not a substitute for medical care. AHFS?? Patient Medication Information?. ?? Copyright, 2023. The [employer]??, [address], [address], [place], [place]. All Rights Reserved. Duplication for commercial use must be authorized by [facility]. Selected Revisions: March 23, 2024. AHFS?? Patient [...] present and normoactive x 4 quadrants SKIN: [place], warm, and dry. No rash, sores, or [...] leaflet [facility] [place] [facility] imaging uploaded and reviewed - 02/25: BCx (+) staph aureus - Underwent chest washout, wound debridement, removal of sternal plates, and wound vac placement on02/[address] Daniel (silver sponge so no WV change til Wednesday) - TTE shows LVEF 59%, mod dilated RV with nl RV fx. TV leaflets thickened. 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 There appears to be restricted [...] WV changes, continue home Suboxone Cardiothoracic Surgery [phone] * Progress Notes - Lise Christine, RN - 03/05/2025 3:07 PM EDT Case Management Discharge Note Alex Amaya 34 y.o. male CSN: [id number] Admission: 02/25/2025 2:42 AM Primary Problem: Sternal wound dehiscence, initial encounter Primary Economic Development Specialist: Primary Caregiver: Self Assistance Available at Discharge: Availability of Care Givers (#Hours): 24 hours, No assistance needed Family/Economic Development Specialist(s) Willingness Assessed to care for patient at [...] days Follow-up: Francisco [facility] [address] [facility] [address] Go on 04/26/2025 Your appointment time is 2:10pm Please arrive 15 minutes early and bring bottles of medication [facility] [address] [facility] [address] Go on 03/12/2025 03/12/25 at 11:30 AM - Infusion Center for PICC and labs Wound Vac Changes MWF - same location, but in Physical Therapy Department - First Appointment 03/14/25 9:00 AM [facility] [address] [facility] [address] Follow up for IV antibiotics and supplies Discharge Transportation: Transportation Anticipated: family or friend will provide Transportation Home at Discharge: Family/Friend will Provide Follow Up Transport: Transportation Needed to Follow up Appoinments: Family/Friend will Provide Additional Comments: Per primary team patient is medically ready for discharge. Patient will discharge with IV antibiotics from [facility] - supplies will be delivered to bedside. Wound vac ordered through [facility] - will be delivered to bedside. Patient will follow up in [facility]ovascular Clinic for first two wound vac changes, then [facility]. Patient also scheduled to go to [facility] infusion center for PICC care and [...] vein Patient position: Flat Catheter Lot #: [id number] Catheter adult family home program manager: VasSol Catheter placed: Single lumen Catheter size: 4 [...] present and normoactive x 4 quadrants SKIN: [place], warm, and dry. No rash, sores, or [...] and De Lucas procedure at [facility] ([place]) - OSH CT imaging uploaded and reviewed - 02/25: BCx (+) staph aureus - Underwent chest washout, wound debridement, removal of sternal plates, and wound vac placement on02/[address] Daniel (silver sponge so no W[place] change til Wednesday) - TTE shows LVEF 59%, mod dilated RV with nl RV fx. TV leaflets thickened. 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 There appears to be restricted [...] present and normoactive x 4 quadrants SKIN: [place], warm, and dry. No rash, sores, or [...] and De Lucas procedure at [facility] ([place]) - OSH CT imaging uploaded and reviewed - 02/25: BCx (+) staph aureus - Underwent chest washout, wound debridement, removal of sternal plates, and wound vac placement on02/[address] Daniel (silver sponge so no WV change til Wednesday) - TTE shows LVEF 59%, mod dilated RV with nl RV fx. TV leaflets thickened. 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 There appears to be restricted [...] to order single lumen PICC. Cardiothoracic Surgery [id number] * Care Plan - Yared Cartwright RN [...] Review Outcome: Ongoing, Progressing Flowsheets (Taken 03/02/2025 2306) Progress: improving Plan of Care Reviewed With: [...] and De Lucas procedure at [facility] ([place]) - OSH CT imaging uploaded and reviewed - 02/25: BCx (+) staph aureus - Underwent chest washout, wound debridement, removal of sternal plates, and wound vac placement on02/[address] Daniel (silver sponge so no WV change til Wednesday) - TTE shows LVEF 59%, mod dilated RV with nl RV fx. TV leaflets thickened. 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 There appears to be restricted [...] Post-[facility]ative [facility] - [facility] Ob[facility] (POA) - BMI 33.47 - Complicates care Plan: - Continue cefazolin per ID - Continue wound vac - Per ID, if BC from 02/27 & 03/01 remain negative, okay to order single lumen PICC. Cardiothoracic Surgery [phone] * Significant Event - Keny Chin MD [...] 0930AM WEEK 6 FOLLOWUP: 04/10/2025, 0900AM at [address] [place] [address] (Select Option 3 for IV Antibiotic / PICC line related issues) All questions regarding outpatient parenteral antimicrobials after discharge should be directed to the OPAT nurse navigator at (Select Option 3 for IV Antibiotics/PICC Issues) between 8am-5pm. After 5 pm, or during weekends/ holidays, please call the paging pulper operator at to reach the on-call ID [...] mg, Oral, q4h PRN, Zacher, Kelsie A, ENVIRONMENTAL HEALTH AIDE Buprenorphine HCl-Naloxone HCl (Suboxone) 8-2 MG per SL film 8 mg, 8 mg, Sublingual, BID, Alejandro Sandoval PA, 8 mg at 03/02/25 0924 calcium carbonate (Tums) chewable tablet 500 mg, 500 mg, Oral, q6h PRN, Zacher, Kelsie A, ENVIRONMENTAL HEALTH AIDE ceFAZolin (Ancef) injection 2 g, 2 g, Intravenous, q8h, Zacher, Kelsie A, ENVIRONMENTAL HEALTH AIDE, 2 g at 03/02/25 0923 docusate sodium (Colace) capsule 100 mg, 100 mg, Oral, BID, Zacher, Kelsie A, ENVIRONMENTAL HEALTH AIDE, 100 mg at 03/02/25 0923 heparin (porcine) injection 5,000 Units, 5,000 Units, Subcutaneous, q8h [facility], Maxwell Ocasio MD, 5,000 Units at 03/02/25 0515 HYDROmorphone (Dilaudid) tablet 2 mg, 2 mg, Oral, q6h PRN, Zacher, Kelsie A, ENVIRONMENTAL HEALTH AIDE ibuprofen tablet 600 mg, 600 mg, Oral, q6h PRN, Zacher, Kelsie A, ENVIRONMENTAL HEALTH AIDE lidocaine (Lidoderm) 5 % patch 1 patch, 1 patch, Apply externally, q24h, Zacher, Kelsie A, ENVIRONMENTAL HEALTH AIDE, 1 patch at 05/29/25 2112 methocarbamol (Robaxin) [...] regurgitation. Tricuspid Valve: The leaflets appear thickened. 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 There appears to be restricted [...] is no recent study available for direct kdes-dc-zfcq comparison. 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 Ptalso with h/o TV IE in 2019 for which he had TV leaflet repair and De Lucas procedure at [facility] ([place] Pt was incarcerated at the time, and post-discharge developed chronic drainage from cephalad portion of sternal wound. Pt reportedly had I&Ds at custodial medical facility. Wound subsequentlyhas open and closed several times since 2021, including in December 2024. On/around 02/19/2025, wound again ruptured with large amount of purulent drainage, which pt described as largest amount of renata inage in several years. Pt seen at [facility] 02/24/2025. 02/24/2025 CT showed [...] and De Lucas procedure at [facility] ([place]) SUBSTANCE ABUSE: Illicit: H/o IVDA, polysubstance abuse. [...] abx therapy. For now, while inpatient at [facility]: Continue Cefazolin 2g IV q8h [...] appointment in order to complete registration paperwork.) [facility] (Infectious Diseases Clinic) [address] [place] [id number] ART GALLERY DIRECTOR: . FAX: [facility] Bone and Joint Consult Service [...] arms away from your body. * [facility] Donna Rosario RN - 03/02/2025 10:43 AM EDT Images from the original note were not included. [id number] Understanding Wound Separation After Surgery (Wound Dehiscence) [...] of the opening. How to say it glj-ZALT-gjvjx How wound dehiscence happens A wound can [...] out Last Reviewed Date: 2024 00:00:00 ?? [id number] The [employer]. All rights reserved. This information is not intended as a substitute for professional medical care. Always follow your healthcare professional's instructions. * Consults - Asia Neumann RD - 03/02/2025 9:48 AM EDT Adult Nutrition Evaluation Note Alex Amaya 34 y.o. male CSN: [id number] Room/Bed 119/119A Nutrition evaluation type: assessment Reason for evaluation: [facility] Hospital course: 34 yo male transferred to from [place] for evaluation of chronic sternotomy wound with chest abscess. He states that he had to have several incision and drainages of the superior aspect of his sternotomy scar that occurred in the medical facility at the custodial that he was in due to drainage with the last in 2021. He reports that the area has chronically healed and opened up multipletimes, most recently about 3 months ago. Past medical/ surgical history: IVDU on suboxone, infectious endocarditis requiring tricuspid valverepair in [place] in [place]. Medical History[1] Surgical History[2] Social [...] (Room air) O2 Delivery Method: Nasal cannula [place] Coma Scale Score: 15 Jhony Scale Score: [...] (260 lb 12.9 oz) BMI (Calculated): 33.47 [place] Body Weight (kg): 86.4 Percent [place] Body Weight: 137 Adjusted Body Weight (kg): 94.4 Estimated Needs: Metabolic Cart Study Results: Current Nutrition Intake: Diet Supplements: None Diet Order: Adult Diet Diet Texture: Regular Percent Meals Eaten (%): 100% x 3 meals Diet Experience and Nutrition History: Diet Education Provided: Will monitor Pertinent home medications: Reviewed Oriental Orthodox needs: Nutrition Focused Physical Exam: Physical exam [...] with nl RV fx. TV leaflets thickened. 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 There appears to be restricted motion/malcoaptation involving the septal leaflet. There is no tricuspid valve vegetation. There is severe tricuspid regurgitation. There is systolic flow reversal of the hepatic veins consistent with significant tricuspid valve regurgitation. OUD (POA) Post-Operative Pain - continue home Suboxone - [facility] Obesity (POA) - BMI 33.88 - complicates all aspects of care Plan: - Continue IV abx per ID - Continue wound vac - Will need PICC Cardiothoracic Surgery [phone] * Progress Notes - Estefania Salguero - 03/01/2025 8:08 AM EDT Case Management Adult Progress Note Alex Amaya 34 y.o. male CSN: [id number] Admission: 02/25/2025 2:42 AM Primary Problem: Sternal [...] IV Access: pending Patient Specific Outpatient Circumstances: [address] [place], [place] [id number] Family Support: Extended Emergency Contact Information Primary Emergency Contact: Mary Lemus Mobile Relation: Significant Other Preferred language: Micronesian Melting Operator needed? No Contact information: Alex Amaya -[phone] Afua Lemus (pt's S.O. -will administer IV abx) - [phone] Outpatient services (including home infusion, home health, [...] care/labs;patient is requesting to go to [facility] close to home . After this [...] via secure chat or staff messaging in [employer]. This note is not the final recommendations [...] 500 mg, Oral, q6h PRN, Kelsie Carty ENVIRONMENTAL HEALTH AIDE ceFAZolin (Ancef) injection 2 g, 2 g, Intravenous, q8h, Kelsie Carty ENVIRONMENTAL HEALTH AIDE, 2 g at 02/28/25 0908 docusate sodium (Colace) capsule 100 mg, 100 mg, Oral, BID, Kelsie Carty ENVIRONMENTAL HEALTH AIDE, 100 mg at 02/27/25 2139 heparin (porcine) [...] mL, 10 mL, Intravenous, PRN, Kelsie Carty ENVIRONMENTAL HEALTH AIDE O: Visit Vitals BP 134/77 (BP Location: [...] regurgitation. Tricuspid Valve: The leaflets appear thickened. 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 There appears to be restricted [...] is no recent study available for direct [id number] comparison. 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 Ptalso with h/o TV IE in 2019 for which he had TV leaflet repair and [facility] procedure at [facility] Pt was incarcerated at the time, and post-discharge developed chronic drainage from cephalad portion of sternal wound. Pt reportedly had I&Ds at [facility]. Wound subsequentlyhas open and closed several times since 2021, including in December 2024. On/around 02/19/2025, wound again ruptured with large amount of purulent drainage, which pt described as largest amount of renata inage in several years. Pt seen at [facility] 02/24/2025. 02/24/2025 CT showed [...] and De Lucas procedure at [facility] ([place]) SUBSTANCE ABUSE: Illicit: H/o IVDA, polysubstance abuse. [...] abx therapy. For now, while inpatient at [facility]: Continue Cefazolin 2g IV q8h [...] with nl RV fx. TV leaflets thickened. 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 There appears to be restricted motion/malcoaptation involving the septal leaflet. There is no tricuspid valve vegetation. There is severe tricuspid regurgitation. There is systolic flow reversal of the hepatic veins consistent with significant tricuspid valve regurgitation. OUD (POA) Post-Operative Pain - continue home Suboxone - [facility] Obesity (POA) - BMI 33.88 - complicates all aspects of care Plan: - continue IV abx per ID - continue wound vac Cardiothoracic Surgery [phone] * Care Plan - Nasra Jasmine, RN [...] needed in the future. Mayelin Caruso PharmD, [facility] Clinical Pharmacist - Cardiology Contact via [...] of HCV workup. Branden Elizalde, Pharm D. [facility] via secure [...] regurgitation. Tricuspid Valve: The leaflets appear thickened. 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 There appears to be restricted [...] is no recent study available for direct [id number] comparison. 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 Ptalso with h/o TV IE in 2019 for which he had TV leaflet repair and De Lucas procedure at [facility] ([place] Pt was incarcerated at the time, and post-discharge developed chronic drainage from cephalad portion of sternal wound. Pt reportedly had I&Ds at custodial medical facility. Wound subsequentlyhas open and closed several times since 2021, including in December 2024. On/around 02/19/2025, wound again ruptured with large amount of purulent drainage, which pt described as largest amount of renata inage in several years. Pt seen at [facility] 02/24/2025. 02/24/2025 CT showed [...] and De Lucas procedure at [facility] ([place] SUBSTANCE ABUSE: Illicit: H/o IVDA, polysubstance abuse. [...] abx therapy. For now, while inpatient at [facility]: D/c Vanco and Zosyn Start [...] Note Alex Amaya 34 y.o. male CSN: [id number] Admission: 02/25/2025 2:42 AM Primary Problem: Sternal wound dehiscence, initial encounter PCP: Pcp, No Emergency Contact: Extended Emergency Contact Information Primary Emergency Contact: Mary Lemus Mobile Relation: Significant Other Preferred language: Micronesian Melting Operator needed? No Insurance: Primary Visit Coverage Payer Plan Sponsor Code Group Number Group Name AETNA AETNA OPEN CHOICE ACCESS [id number] Primary Visit Coverage Subscriber Subscriber ID Subscriber Name Subscriber SSN Subscriber Address [id number] Alex Amaya [id number] [address] [place] [address] Secondary Visit Coverage Payer Plan Sponsor Code Group Number Group Name WELLC[employer] MEDICAID WELLCARE MEDICAID Secondary Visit Coverage Subscriber Subscriber ID Subscriber Name Subscriber SSN Subscriber Address [id number] Alex Amaya [id number] [address] [place] [address] Patient information: Primary Caregiver: Self Accompanied by/Relationship: Mary Lemus ([phone]) Support System: Immediate family Daily Living Activities: Functional Status: Independent Living Arrangements: Spouse/Significant other, Children (5 y.o. child) Type of Residence: Private residence, Single Level (1-2 DANIS) [address] [id number] Current DME: Equipment Currently Used at Home: [...] Dialysis Services: N/A Living Will/Advance Directive/Power of Back End Developer /Guardian: Have you reviewed your Advance Directive [...] pt accompanied by significant other Mary Mariah ([phone]). Pt does not have a POA/LW/AD. Pt [...] DC. Pt has never worked with an CORROSION TECHNICIAN and has never stayed anywhere overnight for physical rehab. Pt prefers [facility] in [place] as his pharmacy. Pt confirms insurance listed [...] sounds present and normoactivex 4 quadrants SKIN: [place], warm, and dry. No rash, sores, or [...] - continue home Suboxone - [facility] Obesity (POA) - BMI 32 - complicates all aspects of care Plan: - continue IV abx per ID - continue wound vac - TTE completed this morning, read pending Cardiothoracic Surgery [phone] * Discharge Instr - Other Orders - Donna Rosario RN - 02/27/2025 10:28 AM EDT Please arrive 30 minutes early for your appointment with Dr. Daniel Prior to your appointment, go to the radiology department on the 1st floor of the [facility] near [facility] for a chest x-ray. Then go [...] your incisions. Do NOT lift, push or trap puller 5 pounds for six weeks. Do [...] Donna Rosario CT Surgery Nurse Navigator at [phone] Wednesday through Wednesday 7am- 3:30pm [facility] [phone] after 3:30 pm, weekends and holidays - ask for the CT surgeon youth care professional. * Progress Notes - Alejandro Sandoval PA [...] sounds present and normoactivex 4 quadrants SKIN: [place], warm, and dry. No rash, sores, or [...] - continue home Suboxone - [facility] Obesity (POA) - BMI 32 - complicates all aspects of care Plan: - continue IV abx per ID - continue wound vac Cardiothoracic Surgery [phone] * Anesthesia PACU Signout - Umberto Davis [...] CORONARY ARTERY BYPASS GRAFTING: Date: 02/26/2025 Location: [facility] Name: Alex Amaya, : 1990, Pre-operative [...] suboxone, infectious endocarditisrequiring tricuspid valve repair in [place] in 2019. He states that he had to have several incision and drainages of the superior aspect of his sternotomy scar that occurred in the medical facility at the custodial that he was in due to drainage [...] midnight. Pacheco Ocasio MD Cardiothoracic Surgery Pager: [phone] * Significant Event - Alejandro Sandoval PA - 02/25/2025 1:35 PM EDT Patient seen and evaluated with Dr Daniel. Will go to OR tomorrow for chest washout and removal of sternal plates with Dr Daniel. Pre-op orders placed. Consent obtained and placed in paper chart. NPOp MN. CT Surgery [phone] * Consults - Kinga Mc MD - [...] prior) who presents as a transfer from [facility] with new and worsened superior sternotomy drainage. MDET team were consulted to provide recommendations on therapy and management. Mr. Amaya first noted repeat drainage on 02/19/25, associated with fevers, chills, and swelling. He went to a local ED and was discharged. Given no change he then went to [facility]. CT Chest showed a fluid collection anterior to the sternum and was transferred to for ID follow up and CT surgery evaluation. Upon arrival to on 02/25 blood cultures were taken and have NGTD. Wound cultures have a GS positive for GPC in pairs and clusters. He was started on Vancomycin and Zosyn, [facility]. Additional pertinent admission workup includes Hep C antibodypositivity, HIV non-reactive, CRP of 282.5, and an ESR of 65. When spoken to Mr. Amaya endorses persistent drainage from his sternal wound. In the room therewas considerable drainage on his dressing, which ID team changed. He endorsed the above history anddescribes following with a wafer line worker Dr. Park. Social: Was recently incarcerated until [...] Value Units Date/Time Blood Culture (Aerobic/Anaerobet Set) [[id number]] Collected: 02/25/25317 Order Status: Completed Specimen: Blood, Venous Updated: 02/25/25 0607 Culture Culture in lab Blood Culture (Aerobic/Anaerobet Set) [[id number]] Collected: 02/25/25317 Order Status: Completed Specimen: Blood, Venous Updated: 02/25/25 0601 Culture Culture in lab Wound Culture and Gram Stain [[id number]] (Abnormal) Collected: 02/25/25 0446 Order Status: Completed [...] prior) who presents as a transfer from [facility] with new and worsened superior sternotomy drainage. [...] the patient and family/caregiver, communicating with otherhealth customer care representative. The patient is receiving directed antibiotic therapy which requires monitoring of daily labs for toxicities. Greater than 50% of the time spent on the encounter was [id number] providing direct patient care, counseling for the [...] recommendations as appropriate. Thank you, Ru TrejoD, [facility] Clinical Staff Pharmacist * H&P - Cassidy [...] suboxone, infectious endocarditisrequiring tricuspid valve repair in [place] in 2019. He states that he had to have several incision and drainages of the superior aspect of his sternotomy scar that occurred in the medical facility at the custodial that he was in due to drainage [...] and got worse so he went to [facility] where he was found to have the [...] Tobacco Use: Medium Risk (01/09/2025) Received from [employer] Patient History Smoking Tobacco Use: Former Smokeless [...] suboxone, infectious endocarditisrequiring tricuspid valve repair in [place] in 2019. He states that he had to have several incision and drainages of the superior aspect of his sternotomy scar that occurred in the medical facility at the custodial that he was in due to drainage [...] and got worse so he went to [facility] where he was found to have the [...] infectious endocarditis requiring open heart surgery at [facility] (2019) c/b multiple episodes of medial sternotomy site infection requiring debridement that occurred at a custodial facility (most recent ~2021) who presents with a draining wound at the superior portion of his sternotomy scar with concern for abscess. He states that when he was first postop from his original surgery, he had to have several incision and drainages of the superior aspect of his sternotomy scar that occurred in the medical facility at the custodial that he was in. He had not [...] and got worse so he went to [facility] where he was found to have the chest abscess. He was transferred to [facility] for evaluation with CT surgery and ID History provided by: Patient and medical records shear operator automatic used: No Patient History Medical History[1] Surgical [...] collection [JG] 0314 Reviewed of records from [facility], given 1 g ceftriaxone at 19:47. Tmax [...] None Disposition Admit Admitting/Attending Physician: SHERLYN DANIEL [[id number]] Provider Care Team: CVT CARDIAC SURGERY [[id number]] Are they the primary team?: Yes [1] - Virginia Lewis MD Internal Medicine, PGY-2 [phone] or via [employer] chat [1] Past Medical History: Diagnosis Date [...] Description 03/27/2025 9:00 AM EDT Office Visit [facility] [address], [place] [phone] Keny Chin MD [address] [facility] [address] [place] [address] 03/29/2025 12:20 PM EDT Office Visit [facility] Cardiothoracic [address], [address] [place] [address] Keny Tristan MD [address] [place] [address] 04/10/2025 9:00 AM EDT Office Visit [facility] [address] [facility] [place] [address] Leela Chin MD [address] [facility] [address] [place] [address] Pending Results Name Type Priority [...] Date/Time: 03/04/2025 4:49 PM Performed by: Maxwell Roper, RN Authorized by: Sherlyn Daniel MD [place] Protocol: Verbal consent obtained?: Yes Written consent [...] vein Patient position: Flat Catheter Lot #: [id number] Catheter adult family home program manager: VasSol Catheter placed: Single lumen Catheter size: 4 Fr Catheter trimmed length: 51 Catheter threaded length: 51 Vein placed in: SVC Catheter cm indwellin Catheter cm outside: 0 Placement confirmed by: Client Outlook 3CG technology Pre-procedure: Landmarks identified Ultrasound guidance: [...] * Morphology (03/03/2025 2:11 AM EDT) Pathologist [facility] [place] RBC Morphology RBC Morphology Consistent with Indices and RDW LAB HEMATOLOGY METHOD 03/03/2025 3:14 AM EDT [facility] Platelet Estimate Platelet smear estimate consistent with automated count LAB HEMATOLOGY METHOD 03/03/2025 3:14 AM EDT [facility] Blood Venous blood specimen / Unknown Venipuncture / Unknown 03/03/2025 2:11 AM EDT 03/03/2025 2:25 AM EDT Kelsie Carty APRN LAB BLOOD ORDERABLES Final R esult [facility] [address] [place] [address] * (ABNORMAL) Manual Differential (03/03/2025 2:11 AM EDT) Pathologist [facility] [place] Blasts % 0 % LAB HEMATOLOGY METHOD 03/03/2025 3:14 AM EDT [facility] Promyelocytes % 0 % LAB HEMATOLOGY METHOD 03/03/2025 3:14 AM EDT [facility] Myelocytes % 2 % LAB HEMATOLOGY METHOD 03/03/2025 3:14 AM EDT [facility] Metamyelocytes % 3 % LAB HEMATOLOGY METHOD 03/03/2025 3:14 AM EDT [facility] Neutrophils % 75 % LAB HEMATOLOGY METHOD 03/03/2025 3:14 AM EDT [facility] Lymphocytes % 14 % LAB HEMATOLOGY METHOD 03/03/2025 3:14 AM EDT [facility] Reactive Lymphocytes % 0 % LAB HEMATOLOGY METHOD 03/03/2025 3:14 AM EDT [facility] Monocytes % 3 % LAB HEMATOLOGY METHOD 03/03/2025 3:14 AM EDT [facility] Eosinophils % 3 % LAB HEMATOLOGY METHOD 03/03/2025 3:14 AM EDT [facility] Basophils % 0 % LAB HEMATOLOGY METHOD 03/03/2025 3:14 AM EDT [facility] Blasts Absolute 0.00 10*3/UL LAB HEMATOLOGY METHOD 03/03/2025 3:14 AM EDT [facility] Promyelocytes Absolute 0.00 10*3/uL LAB HEMATOLOGY METHOD 03/03/2025 3:14 AM EDT [facility] Myelocytes Absolute 0.21 10*3/uL LAB HEMATOLOGY METHOD 03/03/2025 3:14 AM EDT [facility] Metamyelocytes Absolute 0.31 10*3/uL LAB HEMATOLOGY METHOD 03/03/2025 3:14 AM EDT [facility] Neutrophils Absolute 7.72(H) 1.60 - 6.10 10*3/uL LAB HEMATOLOGY METHOD 03/03/2025 3:14 AM EDT [facility] Lymphocytes Absolute 1.44 1.20 - 3.90 10*3/uL LAB HEMATOLOGY METHOD 03/03/2025 3:14 AM EDT [facility] Reactive Lymphocytes Absolute 0.00 10*3/uL LAB HEMATOLOGY METHOD 03/03/2025 3:14 AM EDT [facility] Monocytes Absolute 0.31 0.30 - 0.90 10*3/uL LAB HEMATOLOGY METHOD 03/03/2025 3:14 AM EDT [facility] Eosinophils Absolute 0.31 0.00 - 0.50 10*3/uL LAB HEMATOLOGY METHOD 03/03/2025 3:14 AM EDT [facility] Basophils Absolute 0.00 0.00 - 0.10 10*3/uL LAB HEMATOLOGY METHOD 03/03/2025 3:14 AM EDT [facility] Blood Venous blood specimen / Unknown Venipuncture / Unknown 03/03/2025 2:11 AM EDT 03/03/2025 2:25 AM EDT us Kelsie Carty ENVIRONMENTAL HEALTH AIDE LAB BLOOD ORDERABLES Final R esult [facility] [address] [place] [address] * (ABNORMAL) Hepatic function panel (03/03/2025 2:11 AM EDT) Conjugated Bilirubin, Plasma <0.2 <=0.3 mg/dL 03/03/2025 2:55 AM EDT [facility] Comment:Hemolyzed, result ma y be falsely decreased. Alkaline Phosphatase, Plasma 99 40 - 115 U/L 03/03/2025 2:55 AM EDT [facility] Total Bilirubin, Plasma 0.3 0.2 - 1.1 mg/dL 03/03/2025 2:55 AM EDT [facility] Albumin, Plasma 3.3(L) 3.5 - 5.2 g/dL 03/03/2025 2:55 AM EDT [facility] Total Protein 7.9 6.3 - 7.9 g/dL 03/03/2025 2:55 AM EDT [facility] ALT, Plasma 36 10 - 50 U/L 03/03/2025 2:55 AM EDT [facility] AST, Plasma 46 10 - 50 U/L 03/03/2025 2:55 AM EDT [facility] Comment:Hemolyzed, result ma y be falsely increased. Blood Venous blood specimen / Unknown Venipuncture / Unknown 03/03/2025 2:11 AM EDT 03/03/2025 2:23 AM EDT us Kelsie Carty ENVIRONMENTAL HEALTH AIDE LAB BLOOD ORDERABLES Final R esult [facility] [address] [place] [address] * Magnesium, Plasma (03/03/2025 2:11 AM EDT) Magnesium, Plasma 2.2 1.9 - 2.4 mg/dL 03/03/2025 2:55 AM EDT [facility] Blood Venous blood specimen / Unknown Venipuncture / Unknown 03/03/2025 2:11 AM EDT 03/03/2025 2:23 AM EDT us Kelsie Carty APRN LAB BLOOD ORDERABLES Final R esult Performing Organization Address City/[facility]/ZIP Co de Phone Number [facility] [address] [place] [address] * CBC and Differential (03/03/2025 2:11 AM EDT) WBC Count 10.29 3.70 - 10.30 10*3/uL LAB HEMATOLOGY METHOD 03/03/2025 3:15 AM EDT [facility] RBC Count 5.48 4.60 - 6.10 10*6/uL LAB HEMATOLOGY METHOD 03/03/2025 3:15 AM EDT [facility] HGB 15.6 13.7 - 17.5 g/dL LAB HEMATOLOGY METHOD 03/03/2025 3:15 AM EDT [facility] HCT 47.6 40.0 - 51.0 % LAB HEMATOLOGY METHOD 03/03/2025 3:15 AM EDT [facility] Platelet Count 329 155 - 369 10*3/uL LAB HEMATOLOGY METHOD 03/03/2025 3:15 AM EDT [facility] MCV 87 79 - 98 fL LAB HEMATOLOGY METHOD 03/03/2025 3:15 AM EDT [facility] MCH 28.5 26.0 - 32.0 pg LAB HEMATOLOGY METHOD 03/03/2025 3:15 AM EDT [facility] MCHC 32.8 30.7 - 35.5 g/dL LAB HEMATOLOGY METHOD 03/03/2025 3:15 AM EDT [facility] RDW 12.9 11.5 - 14.5 % LAB HEMATOLOGY METHOD 03/03/2025 3:15 AM EDT [facility] MPV 9.1 8.8 - 12.5 fL LAB HEMATOLOGY METHOD 03/03/2025 3:15 AM EDT [facility] nRBC 0.0 <=0.0 per 100 WBCs LAB HEMATOLOGY METHOD 03/03/2025 3:15 AM EDT [facility] Differential Type Manual LAB HEMATOLOGY METHOD 03/03/2025 3:15 AM EDT [facility] Blood Venous blood specimen / Unknown Venipuncture / Unknown 03/03/2025 2:11 AM EDT 03/03/2025 2:25 AM EDT Narrative [facility] - 03/03/2025 3:15 AM EDT [...] no longer being reported. us Kelsie Carty ENVIRONMENTAL HEALTH AIDE LAB BLOOD ORDERABLES Final R esult [facility] [address] [place] [address] * Blood Culture (Aerobic/Anaerobet Set) (03/03/2025 2:11 AM EDT) Culture No growth at day 5 GEENA 03/08/2025 4:02 AM EDT [facility] Blood Structure of antecubital vein / Unknown Venipuncture / Unknown 03/03/2025 2:11 AM EDT 03/03/2025 3:04 AM EDT Narrative [facility] - 03/08/2025 4:02 AM EDT Low blood volume submitted, results may be compromised Kelsie Carty ENVIRONMENTAL HEALTH AIDE LAB MICROBIOLOGY - GENERAL O RDERABLES Final Result Performing Organization Address City/[facility]/ZIP Co de Phone Number [facility] [address] [place] [address] * Blood Culture (Aerobic/Anaerobet Set) (03/03/2025 2:11 AM EDT) Culture No growth at day 5 GEENA 03/08/2025 4:02 AM EDT [facility] Blood Venous blood specimen / Unknown Venipuncture / Unknown 03/03/2025 2:11 AM EDT 03/03/2025 3:03 AM EDT us Kelsie Carty ENVIRONMENTAL HEALTH AIDE LAB MICROBIOLOGY - GENERAL O RDERABLES Final Result Performing Organization Address City/[facility]/ZIP Co de Phone Number [facility] [address] [place] [address] * (ABNORMAL) CBC W/O Differential (03/01/2025 3:55 AM EDT) WBC Count 7.81 3.70 - 10.30 10*3/uL LAB HEMATOLOGY METHOD 03/01/2025 4:12 AM EDT [facility] RBC Count 4.51(L) 4.60 - 6.10 10*6/uL LAB HEMATOLOGY METHOD 03/01/2025 4:12 AM EDT [facility] HGB 12.8(L) 13.7 - 17.5 g/dL LAB HEMATOLOGY METHOD 03/01/2025 4:12 AM EDT [facility] HCT 40.5 40.0 - 51.0 % LAB HEMATOLOGY METHOD 03/01/2025 4:12 AM EDT [facility] Platelet Count 292 155 - 369 10*3/uL LAB HEMATOLOGY METHOD 03/01/2025 4:12 AM EDT [facility] MCV 90 79 - 98 fL LAB HEMATOLOGY METHOD 03/01/2025 4:12 AM EDT [facility] MCH 28.4 26.0 - 32.0 pg LAB HEMATOLOGY METHOD 03/01/2025 4:12 AM EDT [facility] MCHC 31.6 30.7 - 35.5 g/dL LAB HEMATOLOGY METHOD 03/01/2025 4:12 AM EDT [facility] RDW 13.0 11.5 - 14.5 % LAB HEMATOLOGY METHOD 03/01/2025 4:12 AM EDT [facility] MPV 9.5 8.8 - 12.5 fL LAB HEMATOLOGY METHOD 03/01/2025 4:12 AM EDT [facility] nRBC 0.0 <=0.0 per 100 WBCs LAB HEMATOLOGY METHOD 03/01/2025 4:12 AM EDT [facility] Blood Venous blood specimen / Unknown Venipuncture / Unknown 03/01/2025 3:55 AM EDT 03/01/2025 4:04 AM EDT Catalina Cuba MD LAB BLOOD ORDERABLES Final Result [facility] [address] [place] [address] * (ABNORMAL) Basic metabolic panel (03/01/2025 3:55 AM EDT) Glucose, Plasma 94 74 - 99 mg/dL 03/01/2025 4:37 AM EDT [facility] BUN, Plasma 14 7 - 21 mg/dL 03/01/2025 4:37 AM EDT [facility] Creatinine, Plasma 0.92 0.70 - 1.20 mg/dL 03/01/2025 4:37 AM EDT [facility] BUN/Creatinine Ratio 15 03/01/2025 4:37 AM EDT [facility] Sodium, Plasma 140 136 - 145 mmol/L 03/01/2025 4:37 AM EDT [facility] Potassium, Plasma 4.4 3.6 - 4.9 mmol/L 03/01/2025 4:37 AM EDT [facility] Chloride, Plasma 105 97 - 107 mmol/L 03/01/2025 4:37 AM EDT [facility] CO2, Plasma 25 22 - 29 mmol/L 03/01/2025 4:37 AM EDT [facility] Anion Gap 10 6 - 16 mmol/L 03/01/2025 4:37 AM EDT [facility] Total Calcium, Plasma 8.8(L) 8.9 - 10.2 mg/dL 03/01/2025 4:37 AM EDT [facility] eGFRcr 110.6 mL/min/1.7 3m*2 03/01/2025 4:37 AM EDT [facility] Comment:Reported eGFRcr in m L/min/1.73m2 is based the CKD-EPI 2020 equation that does not use a race coefficient. Blood Venous blood specimen / Unknown Venipuncture / Unknown 03/01/2025 3:55 AM EDT 03/01/2025 4:04 AM EDT us Catalina Cuba MD LAB BLOOD ORDERABLES Final Result Performing Organization Address City/[facility]/ZIP Co de Phone Number [facility] [address] [place] [address] * Blood Culture (Aerobic/Anaerobet Set) (03/01/2025 3:45 AM EDT) Culture No growth at day 5 GEENA 03/06/2025 5:01 AM EDT [facility] Blood Venous blood specimen / Unknown Venipuncture / Unknown 03/01/2025 3:45 AM EDT 03/01/2025 4:45 AM EDT us Kelsie Carty APRN LAB MICROBIOLOGY - GENERAL O RDERABLES Final Result [facility] [address] [place] [address] * Blood Culture (Aerobic/Anaerobet Set) (03/01/2025 3:30 AM EDT) Culture No growth at day 5 GEENA 03/06/2025 5:01 AM EDT [facility] Blood Venous blood specimen / Unknown Venipuncture / Unknown 03/01/2025 3:30 AM EDT 03/01/2025 4:45 AM EDT us Kelsie Carty APRN LAB MICROBIOLOGY - GENERAL O RDERABLES Final Result Performing Organization Address [facility]/ZIP Co de Phone Number [facility] [address] [place] [address] * Magnesium (02/28/2025 4:03 AM EDT) Pathologist [facility] [place] Magnesium, Plasma 2.2 1.9 - 2.4 mg/dL 02/28/2025 4:37 AM EDT [facility] Blood Venous blood specimen / Unknown Venipuncture / Unknown 02/28/2025 4:03 AM EDT 02/28/2025 4:10 AM EDT us Sherlyn Daniel MD LAB BLOOD ORDERABLES Final Res ult [facility] [address] [place] [address] * (ABNORMAL) CBC W/O Differential (02/28/2025 4:03 AM EDT) [facility] WBC Count 7.50 3.70 - 10.30 10*3/uL LAB HEMATOLOGY METHOD 02/28/2025 4:26 AM EDT [facility] RBC Count 4.59(L) 4.60 - 6.10 10*6/uL LAB HEMATOLOGY METHOD 02/28/2025 4:26 AM EDT [facility] HGB 13.1(L) 13.7 - 17.5 g/dL LAB HEMATOLOGY METHOD 02/28/2025 4:26 AM EDT [facility] HCT 40.6 40.0 - 51.0 % LAB HEMATOLOGY METHOD 02/28/2025 4:26 AM EDT [facility] Platelet Count 252 155 - 369 10*3/uL LAB HEMATOLOGY METHOD 02/28/2025 4:26 AM EDT [facility] MCV 89 79 - 98 fL LAB HEMATOLOGY METHOD 02/28/2025 4:26 AM EDT [facility] MCH 28.5 26.0 - 32.0 pg LAB HEMATOLOGY METHOD 02/28/2025 4:26 AM EDT [facility] MCHC 32.3 30.7 - 35.5 g/dL LAB HEMATOLOGY METHOD 02/28/2025 4:26 AM EDT [facility] RDW 13.2 11.5 - 14.5 % LAB HEMATOLOGY METHOD 02/28/2025 4:26 AM EDT [facility] MPV 9.8 8.8 - 12.5 fL LAB HEMATOLOGY METHOD 02/28/2025 4:26 AM EDT [facility] nRBC 0.0 <=0.0 per 100 WBCs LAB HEMATOLOGY METHOD 02/28/2025 4:26 AM EDT [facility] Blood Venous blood specimen / Unknown Venipuncture / Unknown 02/28/2025 4:03 AM EDT 02/28/2025 4:12 AM EDT us Sherlyn Dainel MD LAB BLOOD ORDERABLES Final Res ult [facility] [address] [place] [address] * (ABNORMAL) Basic metabolic panel (02/28/2025 4:03 AM EDT) Glucose, Plasma 110(H) 74 - 99 mg/dL 02/28/2025 4:37 AM EDT [facility] BUN, Plasma 18 7 - 21 mg/dL 02/28/2025 4:37 AM EDT [facility] Creatinine, Plasma 1.15 0.70 - 1.20 mg/dL 02/28/2025 4:37 AM EDT [facility] BUN/Creatinine Ratio 16 02/28/2025 4:37 AM EDT [facility] Sodium, Plasma 136 136 - 145 mmol/L 02/28/2025 4:37 AM EDT [facility] Potassium, Plasma 3.8 3.6 - 4.9 mmol/L 02/28/2025 4:37 AM EDT [facility] Chloride, Plasma 104 97 - 107 mmol/L 02/28/2025 4:37 AM EDT [facility] CO2, Plasma 24 22 - 29 mmol/L 02/28/2025 4:37 AM EDT [facility] Anion Gap 8 6 - 16 mmol/L 02/28/2025 4:37 AM EDT [facility] Total Calcium, Plasma 8.6(L) 8.9 - 10.2 mg/dL 02/28/2025 4:37 AM EDT [facility] eGFRcr 84.6 mL/min/1.7 3m*2 02/28/2025 4:37 AM EDT [facility] Comment:Reported eGFRcr in m L/min/1.73m2 is based the CKD-EPI 2020 equation that does not use a race coefficient. Blood Venous blood specimen / Unknown Venipuncture / Unknown 02/28/2025 4:03 AM EDT 02/28/2025 4:10 AM EDT us Sherlyn Daniel MD LAB BLOOD ORDERABLES Final Res ult [facility] [address] [place] [address] * PERIPHERAL IV (SMARTFORM LINK) (02/27/2025 6:13 [...] ADULT TRANSTHORACIC COMPLETE (02/27/2025 10:50 AM EDT) [facility] BSA 2.45 m2 HERNESTO ISCV Height 188.0 [...] HERNESTO ISCV RV s' Rodríguez 15.2 cm/s HERNETSO ISCV TAPSE 21 mm HERNESTO ISCV TR [...] regurgitation. Tricuspid Valve: The leaflets appear thickened. 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 There appears to be restricted [...] is no recent study available for direct [id number] comparison. Left Ventricle Based on the linear [...] stenosis. Tricuspid Valve The leaflets appear thickened. 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 There appears to be restricted [...] Chest washout, removal of sternal plates on 5/26. Study Recommendation There is no recent study available for direct [id number] comparison. Wall Scoring Baseline Score Index: 1.00 [...] - 40.0 ug/mL 02/27/2025 11:21 AM EDT [facility] Blood Venous blood specimen / Unknown Venipuncture / Unknown 02/27/2025 10:46 AM EDT 02/27/2025 10:52 AM EDT Narrative [facility] - 02/27/2025 11:21 AM EDT Therapeutic Peak level: 20-40ug/mL Supra-therapeutic Peak level: >40 ug/mL us Alejandro AARON LAB BLOOD ORDERABLES Final R esult [facility] [address] [place] [address] * (ABNORMAL) Lipid panel (02/27/2025 4:33 AM EDT) Cholesterol, Plasma 108 <200 mg/dL 02/27/2025 5:14 AM EDT [facility] Comment: Cholesterol Reference Range (age >17 years): Desirable <200 mg/dL Borderline 200 to 239 mg/dL Undesirable >239 mg/dL HDL 28(L) >=40 mg/dL 02/27/2025 5:14 AM EDT [facility] Comment: HDL Cholesterol Reference Ranges (age >17 years): Female, acceptable > or = 50 mg/dL Male, acceptable > or = 40 mg/dL Triglycerides, Plasma 94 <150 mg/dL 02/27/2025 5:14 AM EDT [facility] Comment: Triglyceride Reference Range (age >17 years): Desirable: <150 mg/dL Borderline high: 150 to 199 mg/dL High: 200 to 499 mg/dL Very high: >499 mg/dL Increased risk of pancreatitis: >1000 mg/dL Cholesterol/HDL Ratio 4 02/27/2025 5:14 AM EDT [facility] LDL, Calculated 62 <100 mg/dL 5:14 AM EDT [facility] Comment: LDL Cholesterol Reference Range [...] 12 hours? No 02/27/2025 5:14 AM EDT [facility] Blood Venous blood specimen / Unknown Venipuncture / Unknown 02/27/2025 4:33 AM EDT 02/27/2025 4:42 AM EDT us Alejandro AARON LAB BLOOD ORDERABLES Final R esult [facility] [address] [place] [address] * Hemoglobin A1c (02/27/2025 4:33 AM EDT) Hemoglobin A1c 5.4 <5.7 % 02/27/2025 7:06 AM EDT [facility] Blood Venous blood specimen / Unknown Venipuncture / Unknown 02/27/2025 4:33 AM EDT 02/27/2025 4:45 AM EDT Narrative [facility] - 02/27/2025 7:06 AM EDT HA1C Interpretive Data: Diagnosis of Diabetes: Diabetic > or = 6.5% Pre-diabetic 5.7 to 6.4% Non-diabetic < or = 5.6% Glycemic Targets for Type I and Type II Diabetics: Non- Adults <7.0% Adults <6.0% Children and Adolescents <7.5% Source: [place] [employer]. Standards of medical care in diabetes,2017. Diabetes Care.2017:40 (suppl 1):S1-S135. us Alejandro AARON LAB BLOOD ORDERABLES Final R esult [facility] [address] [place] [address] * (ABNORMAL) Basic metabolic panel (02/27/2025 4:33 AM EDT) Glucose, Plasma 128(H) 74 - 99 mg/dL 02/27/2025 5:14 AM EDT [facility] BUN, Plasma 18 7 - 21 mg/dL 02/27/2025 5:14 AM EDT [facility] Creatinine, Plasma 1.01 0.70 - 1.20 mg/dL 02/27/2025 5:14 AM EDT [facility] BUN/Creatinine Ratio 18 02/27/2025 5:14 AM EDT [facility] Sodium, Plasma 135(L) 136 - 145 mmol/L 02/27/2025 5:14 AM EDT [facility] Potassium, Plasma 4.6 3.6 - 4.9 mmol/L 02/27/2025 5:14 AM EDT [facility] Chloride, Plasma 101 97 - 107 mmol/L 02/27/2025 5:14 AM EDT [facility] CO2, Plasma 24 22 - 29 mmol/L 02/27/2025 5:14 AM EDT [facility] Anion Gap 10 6 - 16 mmol/L 02/27/2025 5:14 AM EDT [facility] Total Calcium, Plasma 9.2 8.9 - 10.2 mg/dL 02/27/2025 5:14 AM EDT [facility] eGFRcr 98.8 mL/min/1.7 3m*2 02/27/2025 5:14 AM EDT [facility] Comment:Reported eGFRcr in m L/min/1.73m2 is based the CKD-EPI 2020 equation that does not use a race coefficient. Blood Venous blood specimen / Unknown Venipuncture / Unknown 02/27/2025 4:33 AM EDT 02/27/2025 4:42 AM EDT us Sherlyn Daniel MD LAB BLOOD ORDERABLES Final Res ult [facility] [address] [place] [address] * (ABNORMAL) CBC W/O Differential (02/27/2025 4:33 AM EDT) WBC Count 9.62 3.70 - 10.30 10*3/uL LAB HEMATOLOGY METHOD 02/27/2025 4:53 AM EDT [facility] RBC Count 4.58(L) 4.60 - 6.10 10*6/uL LAB HEMATOLOGY METHOD 02/27/2025 4:53 AM EDT [facility] HGB 13.1(L) 13.7 - 17.5 g/dL LAB HEMATOLOGY METHOD 02/27/2025 4:53 AM EDT [facility] HCT 40.8 40.0 - 51.0 % LAB HEMATOLOGY METHOD 02/27/2025 4:53 AM EDT [facility] Platelet Count 247 155 - 369 10*3/uL LAB HEMATOLOGY METHOD 02/27/2025 4:53 AM EDT [facility] MCV 89 79 - 98 fL LAB HEMATOLOGY METHOD 02/27/2025 4:53 AM EDT [facility] MCH 28.6 26.0 - 32.0 pg LAB HEMATOLOGY METHOD 02/27/2025 4:53 AM EDT [facility] MCHC 32.1 30.7 - 35.5 g/dL LAB HEMATOLOGY METHOD 02/27/2025 4:53 AM EDT [facility] RDW 13.1 11.5 - 14.5 % LAB HEMATOLOGY METHOD 02/27/2025 4:53 AM EDT [facility] MPV 10.4 8.8 - 12.5 fL LAB HEMATOLOGY METHOD 02/27/2025 4:53 AM EDT [facility] nRBC 0.0 <=0.0 per 100 WBCs LAB HEMATOLOGY METHOD 02/27/2025 4:53 AM EDT [facility] Blood Venous blood specimen / Unknown Venipuncture / Unknown 02/27/2025 4:33 AM EDT 02/27/2025 4:45 AM EDT Sherlyn Daniel MD LAB BLOOD ORDERABLES Final Res ult Performing Organization Address [facility]/ZIP Co de Phone Number [facility] [address] [place] [address] * Blood Culture (Aerobic/Anaerobet Set) (02/27/2025 4:30 AM EDT) Culture No growth at day 5 GEENA 03/04/2025 5:01 AM EDT [facility] Blood Venous blood specimen / Unknown Venipuncture / Unknown 02/27/2025 4:30 AM EDT 02/27/2025 4:47 AM EDT Sherman Gonzáles MD LAB MICROBIOLOGY - GENERAL O RDERABLES Final Result Performing Organization Address [facility] Co de Phone Number [facility] [address] [place] [address] * Blood Culture (Aerobic/Anaerobet Set) (02/27/2025 4:00 AM EDT) Culture No growth at day 5 GEENA 03/04/2025 5:01 AM EDT [facility] Blood Venous blood specimen / Unknown Venipuncture / Unknown 02/27/2025 4:00 AM EDT 02/27/2025 4:47 AM EDT us Sherman Gonzáles MD LAB MICROBIOLOGY - GENERAL O RDERABLES Final Result Performing Organization Address City/[facility] [place] [address] * XR Chest 1 View (02/27/2025 2:37 [...] Culture Light Growth 03/01/2025 3:23 PM EDT [facility] Culture Staphylococcus aureus(A) GEENA 03/01/2025 3:23 PM EDT [facility] Foreign Body Bone structure of [...] ORD ERABLES Final Result Performing Organization Address City/[facility] Co de Phone Number [facility] [address] [place] [address] * Anaerobic Culture (02/26/2025 10:10 AM EDT) Culture No anaerobes isolated 03/03/2025 5:50 AM EDT [facility] Foreign Body Bone structure of sternum / Unknown 02/26/2025 10:10 AM EDT 02/26/2025 11:21 AM EDT Comment:Pre-op diagnosis: Chest wall abscess [L02.213] Sherlyn Daniel MD LAB MICROBIOLOGY - GENERAL ORD ERABLES Final Result Performing Organization Address [facility] Co de Phone Number [facility] [address] [place] [address] * (ABNORMAL) POCT arterial blood gas gem (02/26/2025 9:42 AM EDT) pH, Arterial 7.42 7.35 - 7.45 02/26/2025 9:44 AM EDT [facility] pCO2, Arterial 41 32 - 45 mm Hg 02/26/2025 9:44 AM EDT [facility] pO2, Arterial 105 83 - 108 mm Hg 02/26/2025 9:44 AM EDT [facility] SO2, Arterial 99(H) 94 - 98 % 02/26/2025 9:44 AM [facility] Base Excess, Arterial 1.9 -2 - 3 mmol/L 02/26/2025 9:44 AM [facility] HCO3, Arterial 26.6(H) 22 - 26 mmol/L 02/26/2025 9:44 AM [facility] Total Hemoglobin, Arterial, Whole Blood 13.6(L) 13.7 - 17.5 g/dL 02/26/2025 9:44 AM [facility] Hematocrit, Arterial 41.0 40 - 51.0 % 02/26/2025 9:44 AM [facility] Sodium, Arterial 135(L) 136 - 145 mmol/L 02/26/2025 9:44 AM [facility] Potassium, Arterial 4.1 3.6 - 4.9 mmol/L 02/26/2025 9:44 AM [facility] Chloride, Whole Blood 104 97 - 107 mmol/L 02/26/2025 9:44 AM [facility] Glucose, Arterial 106(H) 74 - 99 mg/dL 02/26/2025 9:44 AM [facility] Ionized Calcium, Arterial 4.7 4.6 - 5.1 mg/dL 02/26/2025 9:44 AM [facility] Lactate, Arterial 0.6 0.5 - 1.6 mmol/L 02/26/2025 9:44 AM [facility] Body Temperature 37.0 Celsius 02/26/2025 9:44 AM [facility] pH, Temp Corrected, Arterial 7.42 7.35 - 7.45 02/26/2025 9:44 AM [facility] pCO2, Temp Corrected, Arterial 41 32 - 45 mm Hg 02/26/2025 9:44 AM [facility] pO2, Temp Corrected, Arterial 105 83 - 108 mm Hg 02/26/2025 9:44 AM [facility] Building Inspection Engineer ID Carina Jordan 02/26/2025 9:44 AM [facility] Blood, Arterial Whole blood specimen / Unknown 02/26/2025 9:42 AM EDT 02/26/2025 9:44 AM T us Sherlyn A Tanna MD LAB POINT OF CARE TE ST DOCKED DEVICE UNSOLICITED RESULTS Final Result [facility] [address] [place] [address] * (ABNORMAL) Abscess Culture and Gram Stain (02/26/2025 9:34 AM EDT) Culture Light Growth 03/01/2025 3:22 PM EDT [facility] Culture Staphylococcus aureus(A) GEENA 03/01/2025 3:22 PM EDT [facility] Comment:The organism value f or this result has been updated. These results have been appended to the previously preliminary verified report. Gram Stain Result Few Polymorphonuclear leukocytes(A) 03/01/2025 3:22 PM EDT [facility] Gram Stain Result Few Gram positive cocci in pairs(A) 03/01/2025 3:22 PM EDT [facility] Swab Bone structure of sternum [...] MICROBIOLOGY - GENERAL ORD ERABLES Final Result [facility] [address] [place] [address] * Fungal Culture, Routine (02/26/2025 9:34 AM EDT) Culture No Fungal Growth at 1 Week 03/06/2025 9:03 AM EDT [facility] Swab Bone structure of sternum / Unknown 02/26/2025 9:34 AM EDT 02/26/2025 11:01 AM EDT Comment:Pre-op diagnosis: Chest wall abscess [L02.213] Sherlyn Daniel MD LAB MICROBIOLOGY - GENERAL ORD ERABLES Final Result Performing Organization Address City/[facility] [place] [address] * Anaerobic Culture (02/26/2025 9:34 AM EDT) Culture No anaerobes isolated 03/03/2025 5:50 AM EDT [facility] Swab Bone structure of sternum / Unknown 02/26/2025 9:34 AM EDT 02/26/2025 11:01 AM EDT Comment:Pre-op diagnosis: Chest wall abscess [L02.213] Sherlyn Daniel MD LAB MICROBIOLOGY - GENERAL ORD ERABLES Final Result Performing Organization Address [facility] [place] [address] * Type and screen (02/25/2025 4:54 PM [...] ORDERABL ES Final Result [facility] [address] [place] [address], * (ABNORMAL) Wound Culture and Gram Stain (02/25/2025 4:46 AM EDT) [facility] CULTURE READING WOUND Moderate Growth 02/27/2025 3:19 PM EDT [facility] CULTURE READING WOUND Staphylococcus aureus(A) GEENA 02/27/2025 3:19 PM EDT [facility] Comment:The organism value f or this result has been updated. These results have been appended to the previously preliminary verified report. Gram Stain Result Numerous Polymorphonuclear leukocytes(A) 02/27/2025 3:19 PM EDT [facility] Gram Stain Result Numerous Gram positive cocci in pairs(A) 02/27/2025 3:19 PM EDT [facility] Gram Stain Result Numerous Gram positive cocci in clusters(A) 02/27/2025 3:19 PM EDT [facility] Swab Skin structure / Unknown [...] MICROBIOLOGY - GENERAL ORD ERABLES Final Result [facility] [address] [place] [address] * (ABNORMAL) Bacterial ID Gram Positive (02/25/2025 3:18 AM EDT) Pathologist [facility] [place] Staphylococcus Result Detected( A) Not Detected 02/26/2025 4:46 AM EDT [facility] Comment:Assess if contaminan t or clinically relevant pathogen. Consider clinical stability and immune status of patient. Blood Venous blood specimen / Unknown Venipuncture / Unknown 02/25/2025 3:18 AM EDT 02/25/2025 4:04 AM EDT Narrative [facility] - 02/26/2025 4:46 AM EDT [...] MICROBIOLOGY - GENERAL ORD ERABLES Final Result [facility] [address] [place] [address] * Hepatitis C Virus (HCV) Quantitative PCR - ED (02/25/2025 3:18 AM EDT) [facility] Hepatitis C Virus (HCV) Quantitative Interpretation Not Detected Not Detected. 02/27/2025 2:45 PM EDT [facility] Blood Venous blood specimen / Unknown Venipuncture / Unknown 02/25/2025 3:18 AM EDT 02/25/2025 3:53 AM EDT Narrative [facility] - 02/27/2025 2:45 PM EDT [...] ORDERABLES Final Res ult Performing Organization Address [facility] [place] [address] * ED HIV 1/2 Antibody/Antigen Screen w/Reflex to HIV 1/2 Differentiation (02/25/2025 3:18 AM EDT) Pathologist [facility] [place] HIV 1 & 2 Antibody/Antigen Screen Non Reactive Non Reactive 02/25/2025 4:35 AM EDT [facility] Comment:Screening for HIV 1 & 2 antibodies, and P24 antigen is NONREACTIVE. No confirmatory testing is required. Blood Venous blood specimen / Unknown Venipuncture / Unknown 02/25/2025 3:18 AM EDT 02/25/2025 3:53 AM EDT Franco Guillory MD LAB BLOOD ORDERABLES Final Res ult Performing Organization Address City/[facility]/ZIP Co de Phone Number [facility] [address] [place] [address] * (ABNORMAL) Hepatitis C Antibody - ED (02/25/2025 3:18 AM EDT) Hepatitis C Antibody Positive(A ) Negative 02/25/2025 4:40 AM EDT [facility] Blood Venous blood specimen / Unknown Venipuncture / Unknown 02/25/2025 3:18 AM EDT 02/25/2025 3:53 AM EDT us Franco Guillory MD LAB BLOOD ORDERABLES Final Res ult [facility] [address] [place] [address] * (ABNORMAL) Blood Culture (Aerobic/Anaerobet Set) (02/25/2025 3:18 AM EDT) Culture Staphylococcus aureus(AA) GEENA 02/27/2025 1:21 PM EDT [facility] Comment: Isolated from aerobic and anaerobic culture bottles. The organism value for this result has been updated. These results have been appended to the previously preliminary verified report. Culture Staphylococcus coagulase negative(AA) GEENA 02/27/2025 1:21 PM EDT [facility] Comment: Isolated from aerobic and anaerobic culture bottles. Isolated from one bottle only in a 24-hour period. If workup required, contact bacteriology at [facility]. This organism may be associated with a contaminated culture. The organism value for this result has been updated. These results have been appended to the previously preliminary verified report. Gram Stain Gram positive cocci in clusters(AA) 02/27/2025 1:21 PM EDT [facility] Comment: Organism seen in Anaerobic Blood Culture Bottle. Positivity Date and Time to Detection: 02/25/2025. at 00 Day(s) and 16 Hour(s). This is an appended report. These results have been appended to a previously preliminary verified report. Gram Stain Gram positive cocci in clusters(AA) 02/27/2025 1:21 PM EDT [facility] Comment: Organism seen in Aerobic Blood Culture Bottle. Positivity Date and Time to Detection: 02/25/2025 at 00 Day(s) and 16 Hour(s). This is an appended report. These results have been appended to a previously preliminary verified report. Blood Venous blood specimen / Unknown Venipuncture / Unknown 02/25/2025 3:18 AM EDT 02/25/2025 4:04 AM EDT Narrative [facility] - 02/27/2025 1:21 PM EDT Anaerobic blood culture entered in duplicate. Organism Antibiotic Method Susceptibility Staphylococcus aureus Daptomycin GEENA <=1 ug/ml: Susceptible Staphylococcus aureus Linezolid GEENA <=1 ug/ml: Susceptible Staphylococcus aureus Oxacillin GEENA <=0.25 ug/ml: Susceptible Staphylococcus aureus Vancomycin GEENA 1 ug/ml: Susceptible Franco Guillory MD LAB MICROBIOLOGY - GENERAL ORD ERABLES Final Result [facility] [address] [place] [address] * (ABNORMAL) Blood Culture (Aerobic/Anaerobet Set) (02/25/2025 3:18 AM EDT) Culture Staphylococcus aureus(AA) 03/03/2025 12:34 PM EDT [facility] Comment: For susceptibility results refer to: - [id number] Isolated from aerobic and anaerobic culture bottles. The organism value for this result has been updated. These results have been appended to the previously preliminary verified report. Gram Stain Gram positive cocci in clusters(AA) 03/03/2025 12:34 PM EDT [facility] Comment: Organism seen in Anaerobic Blood Culture Bottle. Positivity Date and Time to Detection: 02/26/2025. at 00 Day(s) and 19 Hour(s). This is an appended report. These results have been appended to a previously preliminary verified report. Gram Stain Gram positive cocci in clusters(AA) 03/03/2025 12:34 PM EDT [facility] Comment: Organism seen in Aerobic [...] MICROBIOLOGY - GENERAL ORD ERABLES Final Result [facility] [address] [place] [address] * (ABNORMAL) Sed rate, automated (02/25/2025 3:18 AM EDT) Sedimentation Rate 65(H) <15 mm/hr 2024 3:54 AM EDT [facility] Blood Venous blood specimen / Unknown Venipuncture / Unknown 02/25/2025 3:18 AM EDT 02/25/2025 3:40 AM EDT Franco Guillory MD LAB BLOOD ORDERABLES Final Res ult Performing Organization Address City/[facility]/[place] [address] * (ABNORMAL) C-Reactive protein (02/25/2025 3:18 AM EDT) CRP, Plasma 282.5(H) <=8.0 mg/L 02/25/2025 4:23 AM EDT [facility] Blood Venous blood specimen / Unknown Venipuncture / Unknown 02/25/2025 3:18 AM EDT 02/25/2025 3:53 AM EDT Narrative [facility] - 02/25/2025 4:23 AM EDT This CRP test is appropriate for assessment of infection, systemic inflammation and/or tissue injury. To assess cardiovascular disease risk order high sensitivity CRP (CRPH). Franco Guillory MD LAB BLOOD ORDERABLES Final Res ult Performing Organization Address City/[facility]/ZIP Co de Phone Number [facility] LAB [address] [place] [address] * Phosphorus (02/25/2025 3:18 AM EDT) Phosphorus, Plasma 2.7 2.5 - 4.5 mg/dL 02/25/2025 4:23 AM EDT [facility] Blood Venous blood specimen / Unknown Venipuncture / Unknown 02/25/2025 3:18 AM EDT 02/25/2025 3:53 AM EDT Franco Guillory MD LAB BLOOD ORDERABLES Final Res ult [facility] [address] [place] [address] * Magnesium (02/25/2025 3:18 AM EDT) Magnesium, Plasma 2.2 1.9 - 2.4 mg/dL 02/25/2025 4:23 AM EDT [facility] Blood Venous blood specimen / Unknown Venipuncture / Unknown 02/25/2025 3:18 AM EDT 02/25/2025 3:53 AM EDT us Franco Guillory MD LAB BLOOD ORDERABLES Final Res ult Performing Organization Address [facility]/ZIP Co de Phone Number [facility] [address] [place] [address] * (ABNORMAL) CMP (02/25/2025 3:18 AM EDT) Glucose, Plasma 132(H) 74 - 99 mg/dL 02/25/2025 4:23 AM EDT [facility] BUN, Plasma 13 7 - 21 mg/dL 02/25/2025 4:23 AM EDT [facility] Creatinine, Plasma 0.86 0.70 - 1.20 mg/dL 02/25/2025 4:23 AM EDT [facility] BUN/Creatinine Ratio 15 02/25/2025 4:23 AM EDT [facility] Sodium, Plasma 137 136 - 145 mmol/L 02/25/2025 4:23 AM EDT [facility] Potassium, Plasma 3.7 3.6 - 4.9 mmol/L 02/25/2025 4:23 AM EDT [facility] Chloride, Plasma 101 97 - 107 mmol/L 02/25/2025 4:23 AM EDT [facility] CO2, Plasma 24 22 - 29 mmol/L 02/25/2025 4:23 AM EDT [facility] Anion Gap 12 6 - 16 mmol/L 02/25/2025 4:23 AM EDT [facility] Total Calcium, Plasma 9.2 8.9 - 10.2 mg/dL 02/25/2025 4:23 AM EDT [facility] Total Protein 7.4 6.3 - 7.9 g/dL 02/25/2025 4:23 AM EDT [facility] Albumin, Plasma 3.5 3.5 - 5.2 g/dL 02/25/2025 4:23 AM EDT [facility] AST, Plasma 20 10 - 50 U/L 02/25/2025 4:23 AM EDT [facility] Comment:Hemolyzed, result ma y be falsely increased. ALT, Plasma 16 10 - 50 U/L 02/25/2025 4:23 AM EDT [facility] Alkaline Phosphatase, Plasma 100 40 - 115 U/L 02/25/2025 4:23 AM EDT [facility] Total Bilirubin, Plasma 0.7 0.2 - 1.1 mg/dL 02/25/2025 4:23 AM EDT [facility] eGFRcr 115.1 mL/min/1.7 3m*2 02/25/2025 4:23 AM EDT [facility] Comment:Reported eGFRcr in m L/min/1.73m2 is based the CKD-EPI 2020 equation that does not use a race coefficient. Blood Venous blood specimen / Unknown Venipuncture / Unknown 02/25/2025 3:18 AM EDT 02/25/2025 3:53 AM EDT Franco Guillory MD LAB BLOOD ORDERABLES Final Res ult [facility] [address] [place] [address] * (ABNORMAL) CBC w/diff (02/25/2025 3:18 AM EDT) WBC Count 9.74 3.70 - 10.30 10*3/uL LAB HEMATOLOGY METHOD 02/25/2025 3:42 AM EDT [facility] RBC Count 5.34 4.60 - 6.10 10*6/uL LAB HEMATOLOGY METHOD 02/25/2025 3:42 AM EDT [facility] HGB 15.5 13.7 - 17.5 g/dL LAB HEMATOLOGY METHOD 02/25/2025 3:42 AM EDT [facility] HCT 45.4 40.0 - 51.0 % LAB HEMATOLOGY METHOD 02/25/2025 3:42 AM EDT [facility] Platelet Count 167 155 - 369 10*3/uL LAB HEMATOLOGY METHOD 02/25/2025 3:42 AM EDT [facility] MCV 85 79 - 98 fL LAB HEMATOLOGY METHOD 02/25/2025 3:42 AM EDT [facility] MCH 29.0 26.0 - 32.0 pg LAB HEMATOLOGY METHOD 02/25/2025 3:42 AM EDT [facility] MCHC 34.1 30.7 - 35.5 g/dL LAB HEMATOLOGY METHOD 02/25/2025 3:42 AM EDT [facility] RDW 13.2 11.5 - 14.5 % LAB HEMATOLOGY METHOD 02/25/2025 3:42 AM EDT [facility] MPV 10.0 8.8 - 12.5 fL LAB HEMATOLOGY METHOD 02/25/2025 3:42 AM EDT [facility] nRBC 0.0 <=0.0 per 100 WBCs LAB HEMATOLOGY METHOD 02/25/2025 3:42 AM EDT [facility] Differential Type Automated LAB HEMATOLOGY METHOD 02/25/2025 3:42 AM EDT [facility] Neutrophils % 80 % LAB HEMATOLOGY METHOD 02/25/2025 3:42 AM EDT [facility] Lymphocytes % 10 % LAB HEMATOLOGY METHOD 02/25/2025 3:42 AM EDT [facility] Monocytes % 8 % LAB HEMATOLOGY METHOD 02/25/2025 3:42 AM EDT [facility] Eosinophils % 1 % LAB HEMATOLOGY METHOD 02/25/2025 3:42 AM EDT [facility] Basophils % 0 % LAB HEMATOLOGY METHOD 02/25/2025 3:42 AM EDT [facility] Immature Granulocytes % 1 % LAB HEMATOLOGY METHOD 02/25/2025 3:42 AM EDT [facility] Neutrophils Absolute 7.79(H) 1.60 - 6.10 10*3/uL LAB HEMATOLOGY METHOD 02/25/2025 3:42 AM EDT [facility] Lymphocytes Absolute 1.00(L) 1.20 - 3.90 10*3/uL LAB HEMATOLOGY METHOD 02/25/2025 3:42 AM EDT [facility] Monocytes Absolute 0.76 0.30 - 0.90 10*3/uL LAB HEMATOLOGY METHOD 02/25/2025 3:42 AM EDT [facility] Eosinophils Absolute 0.11 0.00 - 0.50 10*3/uL LAB HEMATOLOGY METHOD 02/25/2025 3:42 AM EDT [facility] Basophils Absolute 0.02 0.00 - 0.10 10*3/uL LAB HEMATOLOGY METHOD 02/25/2025 3:42 AM EDT [facility] Immature Granulocytes Absolute 0.06 0.00 - 0.06 10*3/uL LAB HEMATOLOGY METHOD 02/25/2025 3:42 AM EDT [facility] Blood Venous blood specimen / Unknown Venipuncture / Unknown 02/25/2025 3:18 AM EDT 02/25/2025 3:40 AM EDT Narrative [facility] - 02/25/2025 3:42 AM EDT Therapeutic decision making should be based on absolute values, rather than percentages. us Franco Guillory MD LAB BLOOD ORDERABLES Final Res ult [facility] [address] [place] [address] documented in this encounter Visit Diagnoses Diagnosis [...] Discontinued, Routine 0334 (Return to [facility] - Provider: Yared Cartwright RN)1814 (Given - [...] documented as of this encounter Care Teams Die [employer]amper Relationship Specialty Start Date End Date Pcp, No [address] [place] [address] PCP - General Family Medicine 02/25/25 documented as of this encounter
--- OUTSIDE RECORDS SUMMARY | 2025-03-08 14:00 | XMS_ITS | Encounter Summary ---
Author Organization Healthcare Address [address] [place] [address] Care Team Providers Care Package Drier Name Role Phone Pcp, No Primary Care Provider Unavailvidal e Francisco Javier Eller MD Unavailable [phone] Encounter Details Date Type Department Care Team (Late st Contact Info) Description 03/08/2025 2:00 PM EDT Office Visit [place] [facility] Cardi[facility] [address], [address] [place] [address] Keny Tristan MD [address] [facility] [address] [place] [address] Sternal wound dehiscence, initial encounter [...] any time in the past 12 m [facility], were you homeless or living in a prison (including now)? No 02/27/2025 Utilities Answer Date Recorded In the past 12 months has th e [employer], gas, oil, or water company threatened to [...] 2:00 PM EDT Wound Vac Chnage (CPT 36886) Performed by: AGNIESZKA Resendiz Consent: Consent obtained: [...] Description 03/27/2025 9:00 AM EDT Office Visit [address] [address] Keny Chin MD [address] [place] [phone] 03/29/2025 12:20 PM EDT Office Visit [facility] Cardiothoracic [address] [place] [address] Keny Tristan MD [address] [facility] [address] [place] [address] 04/10/2025 9:00 AM EDT Office Visit [address] [address] Leela Chin MD [address] [place] [address] documented as of this encounter Visit Diagnoses Diagnosis Sternal wound dehiscence, initial encounter- Primary documented in this encounter Additional Health Concerns Assessment Noted Time A Body Mass Index follow-up plan has been documented for the patient 03/08/2025 1:43 PM EDT documented as of this encounter Care Teams Package Drier Relationship Specialty Start Date End Date Pcp, [place] [address] PCP - General Family Medicine 02/25/25 Francisco Javier Eller MD [facility] [place] [address] Tool Repairer 03/02/25 documented as of this encounter
--- OUTSIDE RECORDS SUMMARY | 2025-03-12 09:40 | XMS_ITS | Encounter Summary ---
Author Organization Healthcare Address [address] [place] [address] Care Team Providers Care Fruit Harvest Worker Name Role Phone Pcp, No Primary Care Provider Unavailvidal e Francisco Javier Eller MD Unavailable [phone] Encounter Details Date Type Department Care Team (Late st Contact Info) Description 03/12/2025 9:40 AM EDT Office Visit [facility] [address] [place] [address] Sherlyn Cisse MD [address] [place] [address] Sternal wound dehiscence, initial encounter [...] time in the past 12 m [facility], were you homeless or living in [...] VAC change again on WednesdayMarch 14 in [facility]. Hisnext appointment to see us in the clinic is on March 26. I have asked he bring a wound VAC sponge and dressing kit with him at the time of that appointment so that we can take it down look at the progress of wound healing and reapply. 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 documented in this encounter Plan of Treatment Upcoming Encounters Date Type Department Care Team (Late st Contact Info) Description 03/27/2025 9:00 AM EDT Office Visit [facility] [address] [place] [address] Keny Chin MD [address] [facility] [address] [place] [address] 03/29/2025 12:20 PM EDT Office Visit [facility] Cardiothoracic [address] [place] [address] Keny Tristan MD [address] [place] [address] 04/10/2025 9:00 AM EDT Office Visit [facility] [address] [place] [address] Leela Chin MD [address] [facility] [address] [place] [address] documented as of this encounter Visit Diagnoses Diagnosis Sternal wound dehiscence, initial encounter- Primary documented in this encounter Additional Health Concerns Assessment Noted Time A fall risk assessment has been complete d for the patient 03/12/2025 10:07 AM EDT A Body Mass Index follow-up plan has been documented for the patient 03/12/2025 10:37 AM EDT documented as of this encounter Care Teams Fruit Harvest Worker Relationship Specialty Start Date End Date Pcp, [place] [address] PCP - General Family Medicine 02/25/25 Francisco Javier Eller MD [facility] [place] [address] Fretted Instrument Repairer 03/02/25 documented as of this encounter
--- OUTSIDE RECORDS SUMMARY | 2025-03-26 09:43 | XMS_ITS | Encounter Summary ---
Author Organization Healthcare Address [address] [place] [address] Care Team Providers Care Furniture Repair Technician Name Role Phone Pcp, No Primary Care Provider Unavailvidal e Francisco Javier Eller MD Unavailable [phone] Encounter Details Date Type Department Care Team (Latest Contact Info) Description 03/26/2025 9:43 AM EDT [facility] [address], [address] [place] [address] Presence of prosthetic heart valve Social History [...] any time in the past 12 m [facility], were you homeless or living in a usp (including now)? No 02/27/2025 Utilities Answer Date Recorded In the past 12 months has th e electric, gas, oil, or water company threatened to shut off services in your home? No 02/27/2025 PHQ-2A Answer Date Recorded Depression Risk 0 03/26/2025 Sex and Gender Information Value Date Recorded Sex Assigned at Not on file Legal Sex Male 12:02 AM EDT Gender Identity Not on file Sexual Orientation Not on file documented as of this encounter Plan of Treatment Upcoming Encounters Date Type Department Care Team (Late st Contact Info) Description 03/27/2025 9:00 AM EDT Office Visit [address] [phone] Keny Chin MD [address] [place] [address] [address] [place] [phone] 03/29/2025 12:20 PM EDT Office Visit [facility] Cardiothoracic [address], [address] [place] [phone] Keny Tristan MD [address] [facility] [address] [place] [phone] 04/10/2025 9:00 AM EDT Office Visit [address] [phone] Leela Chin MD [address] [facility] [address] [place] [phone] documented as of this encounter Procedures Procedure Name Priority Date/Time Associated Diagnosis Comments XR CHEST 2 VIEWS Routine 03/26/2025 9:56 AM EDT Presence of prosthetic heart valve documented in this encounter Results * XR Chest 2 Views (03/26/2025 9:56 AM EDT) Anatomical Region Laterality Modality Chest Digital Radiogra phy Impressions 03/26/2025 11:15 AM EDT No acute findings. CRITICAL RESULT: No. COMMUNICATION: Per this written report Drafted by Cj Paulino MD on 03/26/2025 11:15 AM Final report signed by Cj Paulino MD on 03/26/2025 11:15 AM Narrative 03/26/2025 11:15 AM EDT CLINICAL INDICATION: Presence of prosthetic heart valve TECHNIQUE: XR CHEST 2 VIEWS COMPARISON: February 27, 2025 FINDINGS: No new consolidation. No pleural effusion. Left PICC tip at the superior vena cava. Procedure Note Cj Paulino MD - 03/26/2025 CLINICAL INDICATION: Presence of prosthetic heart valve TECHNIQUE: XR CHEST 2 VIEWS COMPARISON: February 27, 2025 FINDINGS: No new consolidation. No pleural effusion. Left PICC tip at the superiorvena cava. IMPRESSION: No acute findings. CRITICAL RESULT: No. COMMUNICATION: Per this written report Drafted by Cj Paulino MD on 03/26/2025 11:15 AM Final report signed by Cj Paulino MD on 03/26/2025 11:15 AM Sherlyn Cisse MD IMG XR PROCEDURES Final Result documented in this encounter Visit Diagnoses Diagnosis Presence of prosthetic heart valve documented in this encounter Additional Health Concerns Assessment Noted Time A fall risk assessment has been complete d for the patient 03/12/2025 10:07 AM EDT A Body Mass Index follow-up plan has been documented for the patient 03/26/2025 11:07 AM EDT documented as of this encounter Care Teams Furniture Repair Technician Relationship Specialty Start Date End Date Pcp, [place] [address] [place] [address] PCP - General Family Medicine 02/25/25 Francisco Javier Eller MD [address] [place] [id number] Golf Ball Marker 03/02/25 documented as of this encounter
--- OUTSIDE RECORDS SUMMARY | 2025-03-26 11:40 | XMS_ITS | Encounter Summary ---
Author Organization [facility] Address [address] [place] [address] Care Team Providers Care Tax Economist Name Role Phone Pcp, No Primary Care Provider Hannah e Francisco Javier Eller MD Unavailable [phone] Reason for Referral * Other Medical (Routine) - Pending Review Specialty Diagnoses / Procedures Referred By Kerry ramirez Referred To Contact Diagnoses Presence of prosthetic heart valve Procedures Wound vac dressing change with minor debridement Meera Leos APRN [address] [address] Phone: tel: fax: Referral ID Status Reason Start Date Expiration Date V isits Requested Visits Authorized [id number] Pending Review 03/26/2025 09/25/2026 1 1 Encounter Details Date Type Department Care Team (Late st Contact Info) Description 03/26/2025 11:40 AM EDT Office Visit [facility] Cardi[facility] [address], [facility] [address] [place] [address] Sherlyn Cisse MD [id number] [place] [address] Presence of prosthetic heart valve (Primary Dx) Social History Tobacco Use Types [...] any time in the past 12 m [facility], were you homeless or living in [...] Sign Reading Time Taken Comments Blood Pressure 124/81 03/26/2025 10:11 AM EDT Pulse 91 03/26/2025 10:11 AM EDT Temperature - - Respiratory Rate - - Oxygen Saturation 98% 03/26/2025 10:11 AM EDT Inhaled Oxygen Concentration - - Weight 118 kg (259 lb 4.2 oz) 03/26/2025 10:11 A M EDT Height 188 cm (6' 2 ) 03/26/2025 10:11 AM EDT Body Mass Index 33.29 03/26/2025 10:11 AM EDT documented in this encounter Miscellaneous Notes * Progress Notes - Meera Leos APRN - 03/26/2025 11:40 AM EDTAssociated Order(s): Wound vac dressing change with minor debridement Post-Procedure Diagnose(s): Presence of prosthetic heart valve Reason for visit Post-op follow up, wound check and wound vac dressing change History of present illness: Alex Amaya is a 34 y.o. male with history of IV drug use on suboxone, infectious endocarditisrequiring tricuspid valve repair in [place] in 2019 who developed issues with chest abscess in the subsequent years and ultimately saw us for management of chronic infections and non-healing sternal wound for which he is S/P chest wall debridement with removal of sternal plates and wires and application of wound VAC dressing. He has been seen several times since surgery in the clinic for woundchecks and vac dressing changes and presents today for formal post-op evaluation with xray and labs. He reports that he has been getting his vac dressing changes at [facility] (except when he gets them done with us in the clinic at wound checks). He is being followed with the ID service for management of his antibiotics which he continues on until April 05. Wound vac dressing change with minor debridement Performed by: Meera Leos APRN Authorized by: Meera Leos APRN Consent obtained: Verbal Consent given by: Patient Risks, benefits, and alternatives were discussed: yes Risks discussed: Pain Alternatives discussed: No treatment Procedure explained and questions answered to patient or proxy's satisfaction: yes Relevant documents present and verified: yes Required blood products, implants, devices, and special equipment available: yes (Wound vac dressing change kit) Supervision: Indications: Stable healing wound with wound vac dressing applied Patient's existing wound vac dressing was taken down and the wound was examined, Dr Cisse in to see. Gentle debridement to the wound was provided with a wet 4x4. The wound bed is noted to be beefy and red with granulation tissue present. Wound measures 3 cm deep, 19 cm long, 5 cm wide. Vac sponge was prepared to be slightly smaller than wound base in order to provide good contact with wound while allowing wound edges to continue approximation process. Film applied over sponge and hooked up to vac with excellent results. Procedure completion: Tolerated well, no immediate complications Medical History Past Medical History Pertinent Negatives[1] Problem List Problem List[2] Surgical History Surgical History[3] Social History: Tobacco: Tobacco Use: High Risk (03/26/2025) Patient History Smoking Tobacco Use: Every Day Smokeless Tobacco Use: Never Passive Exposure: Not on file Alcohol: Alcohol Use: Not on file Illicit drug use: Social History Substance and Sexual Activity Drug Use Never Family History: family history is not on file. Allergies: Allergies[4] Medications: Prior to Admission medications Medication Sig Start Date End Date Taking? Authorizing Provider acetaminophen (Tylenol) 500 MG tablet Take 2 tablets by mouth every 6 hours as needed for pain. YesProviderDom MD Buprenorphine HCl-Naloxone HCl (Suboxone) 8-[address] 2 Film under the tongue daily. Yes ProviderDom MD ceFAZolin (Ancef) injection Infuse 6 gm continuously every 24 hours. Mix per institutional policy. 03/05/25 04/10/25 Yes Alejandro Sandoval PA HYDROcodone-acetaminophen ([place]) 5-325 MG tablet Take 1 tablet by mouth every 6 hours as needed for moderate pain or severe pain. 03/12/25 04/11/25 Yes Kelsie Carty APRN ibuprofen 200 MG tablet Take 2 tablets by mouth every 6 hours as needed for mild pain. Yes Dom Silver MD lidocaine (Lidoderm) 5 % patch Apply 1 patch topically 1 (one) time each day at the same time over 12 hours. Remove & discard patch within 12 hours or as directed by . 03/06/25 Yes Malcolm Landrum PA methocarbamol (Robaxin) 750 MG tablet Take 1 tablet by mouth 4 times a day. 03/14/25 Yes Indra Mcintosh APRN naloxone (Narcan) 4 mg/0.1 mL nasal spray 1. Give 1 spray in nostril for no/slow breathing or cannot wake after opioid use 2. Call 911 3. Repeat in other nostril if symptoms continue 03/06/25 Yes Malcolm Landrum PA Visit Vitals BP (!) 143/81 Pulse 91 SpO2 98% Body mass index is 33.29 kg/m??. Labs in last 18 hours CBC WBC 5.65 Hb 17.4 Plt 168 Hct 53.5 (H) ANC ?? INR ??, PTT ??, Anti-Xa ?? BMP Na 140 Cl 102 BUN 11 Glu 59 (L) K 4.3 Co2 27 Cr 1.06 Ca 10.3 (H) iCa ?? Mg ??, Phos ?? Lactate ?? Imaging: CXR from 03/26/2025 FINDINGS: No new consolidation. No pleural effusion. Left PICC tip at the superior vena cava. IMPRESSION: No acute findings. Echo, Adult Transthoracic Complete Result Date: 02/27/2025 Left Ventricle: The left ventricular systolic function [...] regurgitation. Tricuspid Valve: The leaflets appear thickened. [place] TV endocarditis post valve repair with a DeVega P rocedure at [facility] (2019). There appears to be restricted motion/malcoaptation involving the septal leaflet.. There is no tricuspid valve vegetation. There is severe tricuspid regurgitation. There is systolic flow reversal of the hepatic veins consistent with significant tricuspidvalve regurgitation. Right Atrium: The right atrial volume index is normal (18- 32mL/m2). Chiari network (normal variant) is noted. IVC/SVC: Based on the IVC size and respiratory variation, the estimated right atrial pressure is 15mmHg. There is no recent study available for direct [id number] comparison. No valid procedures specified. Review of Systems All other systems reviewed and are negative. Physical Exam Vitals reviewed. HENT: Head: Normocephalic and atraumatic. Right Ear: External ear normal. Left Ear: External ear normal. Nose: Nose normal. Mouth/Throat: Pharynx: Oropharynx is clear. Eyes: Pupils: Pupils are equal, round, and reactive to light. Cardiovascular: Rate and Rhythm: Normal rate. Pulses: Normal pulses. Pulmonary: Effort: Pulmonary effort is normal. Breath sounds: Normal breath sounds. Abdominal: Palpations: Abdomen is soft. Genitourinary: Comments: Deferred Musculoskeletal: General: Normal range of motion. Cervical back: Normal range of motion. Skin: General: Skin is warm and dry. Capillary Refill: Capillary refill takes less than 2 seconds. Comments: See wound description under procedure documentation of wound vac dressing change Neurological: General: No focal deficit present. Mental Status: He is alert and oriented to person, place, and time. Psychiatric: Mood and Affect: Mood normal. Behavior: Behavior normal. Thought Content: Thought content normal. Judgment: Judgment normal. Sternal incision: As above, Wound vac dressing changed Impression: Problem List[5] Alex Amaya is a 34 y.o. male with history of IV drug use on suboxone, infectious endocarditisrequiring tricuspid valve repair in [place] in 2019 who developed issues with chest abscess in the subsequent years and ultimately saw us for management of chronic infections and non-healing sternal wound for which he is S/P chest wall debridement with removal of sternal plates and wires and application of wound VAC dressing. Wound continues to heal without evidence of infection or necrosis. Plan: - Patient will return to clinic for wound vac dressing change on this week - Short term disability form completed at patient's request [1] Past Medical History: Diagnosis Date Endocarditis [2] Patient Active Problem List Diagnosis Sternal wound dehiscence, initial encounter Chest wall abscess Bacteremia due to Staphylococcus aureus H/O tricuspid valve repair Opioid use disorder, severe, on maintenance therapy Obesity due to excess calories without serious comorbidity Chest pain Drainage from wound Presence of prosthetic heart valve Hepatitis C BMI 33.0-33.9,adult [3] Past Surgical History: Procedure Laterality Date STERNAL WIRES REMOVAL 02/26/2025 Chest wall debridement, removal sternal plates and wires, wound vac dressing placement (Dr. Sherlyn Cisse) [4] No Known Allergies [5] Patient Active Problem List Diagnosis Sternal wound dehiscence, initial encounter Chest wall abscess Bacteremia due to Staphylococcus aureus H/O tricuspid valve repair Opioid use disorder, severe, on maintenance therapy Obesity due to excess calories without serious comorbidity Chest pain Drainage from wound Presence of prosthetic heart valve Hepatitis C BMI 33.0-33.9,adult documented in this encounter Plan of Treatment Upcoming Encounters Date Type Department Care Team (Late st Contact Info) Description 03/27/2025 9:00 AM EDT Office Visit [address] [address] Keny Chin MD [address] [place] [address] [address] [place] [address] 03/29/2025 12:20 PM EDT Office Visit [facility] Cardiothoracic [address], [address] [place] [address] Keny Tristan MD [address] [place] [address] 04/10/2025 9:00 AM EDT Office Visit [address] [address] Leela Chin MD [address] [place] [address] [address] [place] [address] Scheduled Orders Name Type Priority Associated Diagnoses Orde r Schedule ECG Adult (Future Visit - Performed in your clinic) ECG Routine Presence of prosthetic heart valve 1 Occurrences starting 03/19/2025 until 09/20/2026 documented as of this encounter Procedures Procedure Name Priority Date/Time Associated Diagnosis Comments GENERAL Routine 03/26/2025 11:40 AM EDT Presence of prosthetic heart valve documented in this encounter Results * GENERAL (03/26/2025 11:40 AM EDT) Narrative Meera Leos APRN - 03/26/2025 11:40 AM EDT Meera Leos APRN 03/26/2025 11:40 AM Wound vac dressing change with minor debridement Performed by: Meera Leos APRN Authorized by: Meera Leos APRN Consent obtained: Verbal Consent given by: Patient Risks, benefits, and alternatives were discussed: yes Risks discussed: Pain Alternatives discussed: No treatment Procedure explained and questions answered to patient or proxy's satisfaction: yes Relevant documents present and verified: yes Required blood products, implants, devices, and special equipment available: yes (Wound vac dressing change kit) Supervision: Indications: Stable healing wound with wound vac dressing applied Patient's existing wound vac dressing was taken down and the wound was examined, Dr Cisse in to see. Gentle debridement to the wound was provided with a wet 4x4. The wound bed is noted to be beefy and red with granulation tissue present. Wound measures 3 cm deep, 19 cm long, 5 cm wide. Vac sponge was prepared to be slightly smaller than wound base in order to provide good contact with wound while allowing wound edges to continue approximation process. Film applied over sponge and hooked up to vac with excellent results. Procedure completion: Tolerated well, no immediate complications us Meera Leos APRN IN CLINIC/BEDSIDE ORDERABLES Final Result * XR Chest 2 Views (03/26/2025 9:56 [...] Cj Paulino MD on 03/26/2025 11:15 AM us Sherlyn Cisse MD IMG XR PROCEDURES Final Result * (ABNORMAL) Basic Metabolic Panel, Plasma (03/26/2025 9:39 AM EDT) Glucose, Plasma 59(L) 74 - 99 mg/dL 03/26/2025 10:51 AM EDT [facility] BUN, Plasma 11 7 - 21 mg/dL 03/26/2025 10:51 AM EDT [facility] Creatinine, Plasma 1.06 0.70 - 1.20 mg/dL 03/26/2025 10:51 AM EDT [facility] BUN/Creatinine Ratio 10 03/26/2025 10:51 AM EDT [facility] Sodium, Plasma 140 136 - 145 mmol/L 03/26/2025 10:51 AM EDT [facility] Potassium, Plasma 4.3 3.6 - 4.9 mmol/L 03/26/2025 10:51 AM EDT [facility] Chloride, Plasma 102 97 - 107 mmol/L 03/26/2025 10:51 AM EDT [facility] CO2, Plasma 27 22 - 29 mmol/L 03/26/2025 10:51 AM EDT [facility] Anion Gap 11 6 - 16 mmol/L 03/26/2025 10:51 AM EDT [facility] Total Calcium, Plasma 10.3(H) 8.9 - 10.2 mg/dL 03/26/2025 10:51 AM EDT [facility] eGFRcr 93.3 mL/min/1.7 3m*2 03/26/2025 10:51 AM EDT [facility] Comment:Reported eGFRcr in m L/min/1.73m2 is based the CKD-EPI 2020 equation that does not use a race coefficient. Blood Venous blood specimen / Unknown Venipuncture / Unknown 03/26/2025 9:39 AM EDT 03/26/2025 9:40 AM EDT us Sherlyn Cisse MD LAB BLOOD ORDERABLES Final Res ult [facility] [address] [place] [address] * (ABNORMAL) CBC W/O Differential (03/26/2025 9:39 AM EDT) WBC Count 5.65 3.70 - 10.30 10*3/uL LAB HEMATOLOGY METHOD 03/26/2025 10:35 AM EDT [facility] RBC Count 6.12(H) 4.60 - 6.10 10*6/uL LAB HEMATOLOGY METHOD 03/26/2025 10:35 AM EDT [facility] HGB 17.4 13.7 - 17.5 g/dL LAB HEMATOLOGY METHOD 03/26/2025 10:35 AM EDT [facility] HCT 53.5(H) 40.0 - 51.0 % LAB HEMATOLOGY METHOD 03/26/2025 10:35 AM EDT [facility] Platelet Count 168 155 - 369 10*3/uL LAB HEMATOLOGY METHOD 03/26/2025 10:35 AM EDT [facility] MCV 87 79 - 98 fL LAB HEMATOLOGY METHOD 03/26/2025 10:35 AM EDT [facility] MCH 28.4 26.0 - 32.0 pg LAB HEMATOLOGY METHOD 03/26/2025 10:35 AM EDT [facility] MCHC 32.5 30.7 - 35.5 g/dL LAB HEMATOLOGY METHOD 03/26/2025 10:35 AM EDT [facility] RDW 13.4 11.5 - 14.5 % LAB HEMATOLOGY METHOD 03/26/2025 10:35 AM EDT [facility] MPV 10.6 8.8 - 12.5 fL LAB HEMATOLOGY METHOD 03/26/2025 10:35 AM EDT [facility] nRBC 0.0 <=0.0 per 100 WBCs LAB HEMATOLOGY METHOD 03/26/2025 10:35 AM EDT [facility] Blood Venous blood specimen / Unknown Venipuncture / Unknown 03/26/2025 9:39 AM EDT 03/26/2025 9:40 AM EDT us Sherlyn Cisse MD LAB BLOOD ORDERABLES Final Res ult [facility] [address] [place] [address] documented in this encounter Visit Diagnoses Diagnosis Presence of prosthetic heart valve- Primary Presence of prosthetic heart valve documented in this encounter Additional Health Concerns Assessment Noted Time A fall risk assessment has been complete d for the patient 03/12/2025 10:07 AM EDT A Body Mass Index follow-up plan has been documented for the patient 03/26/2025 11:07 AM EDT documented as of this encounter Care Teams Tax Economist Relationship Specialty Start Date End Date Pcp, No [address] [place] [address] PCP - General Family Medicine 02/25/25 Francisco Javier Eller MD [facility] [place] [address] Police Superintendent 03/02/25 documented as of this encounter
[2025-03-26 11:58] VITALS: BMI 33.3
[2025-03-26 12:16] LABS: Basophils % 0.5 % (0.1-2.0); Eosinophils # 0.1 Kmm3 (0.0-0.4); Eosinophils % 1.9 % (0.1-12.0); Hematocrit 50.2 % (42.0-52.0); Hemoglobin 16.1 g/dL (14.1-18.0); Immature Granulocytes # 0.04 10^3uL; Immature Granulocytes % 0.6 %; Lymphocytes # 1.1 K/mm3 (0.7-4.5); Mean Corpuscular HGB Conc 32.1 g/dL (31.8-35.4); Mean Corpuscular Hemoglobin 27.9 pg (27.0-31.2); Mean Platelet Volume 10.6 fl (7.4-10.4); Monocytes # 0.3 K/mm3 (0.1-1.0); Monocytes % 4.2 % (1.7-9.3); Neutrophils # 4.6 K/mm3 (1.8-7.8); Neutrophils % 74.8 % (37.0-80.0); Nucleated Red Blood Cells # 0 10^3/uL; Nucleated Red Blood Cells % 0 %; Platelet Count 147 K/mm3 (142-424); Red Blood Count 5.77 M/mm3 (4.60-6.20); Red Cell Distribution Width 13.2 % (11.5-17.5); Red Cell Distribution Width-SD 41.7 fL; White Blood Count 6.2 K/mm3 (4.8-10.8)
--- OUTSIDE RECORDS SUMMARY | 2025-03-26 12:25 | XMS_ITS | Encounter Summary ---
Author Organization Healthcare Address [address] [place] [address] Care Team Providers Care Gravity Prospecting Supervisor Name Role Phone Pcp, No Primary Care Provider Unavailvidal e Francisco Javier Eller MD Unavailable [phone] Encounter Details Date Type Department Care Team (Late st Contact Info) Description 03/07/2025 Clinical Support [facility] [address] [place] [address] Saul Bey, PharmD [phone] Social History Tobacco Use Types Packs/Day Years [...] any time in the past 12 m [facility], were you homeless or living in a longterm (including now)? No 02/27/2025 Utilities Answer Date [...] Description 03/27/2025 9:00 AM EDT Office Visit [address] [place] [phone] Keny Chin MD [address] [place] [address] 100 [place] [address] 03/29/2025 12:20 PM EDT Office Visit [facility] Cardiothoracic [address], [address] [place] [address] Keny Tristan MD [address] [facility] [address] [place] [address] 04/10/2025 9:00 AM EDT Office Visit [address] [place] [address] Leela Chin MD [address] [facility] [address] [place] [address] documented as of this encounter Visit Diagnoses Not on filedocumented in this encounter Additional Health Concerns Assessment Noted Time A Body Mass Index follow-up plan has been documented for the patient 03/07/2025 8:32 AM EDT documented as of this encounter Care Teams Gravity Prospecting Supervisor Relationship Specialty Start Date End Date Pcp, [place] [address] PCP - General Family Medicine 02/25/25 Francisco Javier Eller MD [address] [place], [place] [address] Parachute Packer 03/02/25 documented as of this encounter
--- OUTSIDE RECORDS SUMMARY | 2025-03-26 12:25 | XMS_ITS | Encounter Summary ---
Author Organization Healthcare Address [address] [place] [address] Care Team Providers Care Food Service Worker Name Role Phone Pcp, No Primary Care Provider Unavailabl e Encounter Details Date Type Department Care Team (Late st Contact Info) Description 02/24/2025 Orders Only External Location [address] [place] [phone] Provider, External Social History Tobacco Use Types [...] the past 12 months has th e [employer], gas, oil, or water [employer] threatened to shut off services in your [...] Description 03/27/2025 9:00 AM EDT Office Visit [address] [place] [address] Keny Chin MD [address] [facility] 100 [place] [address] 03/29/2025 12:20 PM EDT Office Visit [facility] Cardiothoracic [address], [address] [place] [address] Keny Tristan MD [address] [place] [address] 04/10/2025 9:00 AM EDT Office Visit [facility] [address] [place] [address] Leela Chin MD [address]01 [facility] [address] [place] [address] documented as of this encounter Procedures Procedure [...] on filedocumented in this encounter Care Teams Food Service Worker Relationship Specialty Start Date End Date Pcp, [place] [address] PCP - General Family Medicine 02/25/25 documented as of this encounter
--- OUTSIDE RECORDS SUMMARY | 2025-03-26 12:25 | XMS_ITS | Encounter Summary ---
Author Organization Healthcare Address [address] [place] [address] Care Team Providers Care Tractor Driver Teamster Name Role Phone Pcp, No Primary Care Provider Francisco Javier Mendez MD Unavailable [phone] Encounter Details Date Type Department Care Team (Late st Contact Info) Description 02/25/2025 Patient Outreach [facility] Medicine Specialties [address] [place] [address] Gavin Vargas Social History Tobacco [...] were you homeless or living in a long term (including now)? No 02/27/2025 Utilities Answer Date [...] Description 03/27/2025 9:00 AM EDT Office Visit [facility] [address] [place] [address] Keny Chin MD [address]01 [facility] 100 [place] [address] 03/29/2025 12:20 PM EDT Office Visit [facility] Cardiothoracic [address], [address] [place] [address] Keny Tristan MD [address] [place] [address] 04/10/2025 9:00 AM EDT Office Visit [facility] [address] [facility] [place] [address] Leela Chin MD 3101 [facility] [address] [place] [address] documented as of this encounter Visit Diagnoses Not on filedocumented in this encounter Additional Health Concerns Assessment Noted Time A Body Mass Index follow-up plan has been documented for the patient 03/06/2025 9:43 AM EDT documented as of this encounter Care Teams Tractor Driver Teamster Relationship Specialty Start Date End Date Pcp, [place] [address] PCP - General Family Medicine 02/25/25 Francisco Javier Eller MD [facility] [place] [address] Transportation Department Supervisor 03/02/25 documented as of this encounter
--- OUTSIDE RECORDS SUMMARY | 2025-03-26 12:25 | XMS_ITS | Encounter Summary ---
Author Organization [facility] Address [address] [place] [address] Care Team Providers Care Hemotherapist Name Role Phone Pcp, No Primary Care Provider Unavailvidal e Francisco Javier Eller MD Unavailable [phone] Encounter Details Date Type Department Care Team (Late st Contact Info) Description 03/12/2025 Telephone [facility] [address], [address] [place] [address] Leela Ayala RN [id number] [address] [phone] Social History Tobacco Use Types Packs/Day Years [...] time in the past 12 m [facility], were you homeless or living [...] 2:33 PM EDT Notified pharmacist everardo for [place] with Suboxone Reviewed with Rogerio Carty APRN, ok for both meds. documented in this encounter Plan of Treatment Upcoming Encounters Date Type Department Care Team (Late st Contact Info) Description 03/27/2025 9:00 AM EDT Office Visit [facility] [address] [place] [address] Keny Chin MD 3101 [facility] 100 [place] [address] 03/29/2025 12:20 PM EDT Office Visit [facility] [address], [address] [place] [address] Keny Tristan MD [address] [place] [address] 04/10/2025 9:00 AM EDT Office Visit [facility] [address] [facility] [place] [address] Leela Chin MD [address] [facility] [address] [place] [address] documented as of this encounter Visit Diagnoses Not on filedocumented in this encounter Additional Health Concerns Assessment Noted Time A fall risk assessment has been complete d for the patient 03/12/2025 10:07 AM EDT A Body Mass Index follow-up plan has been documented for the patient 03/12/2025 10:37 AM EDT documented as of this encounter Care Teams Hemotherapist Relationship Specialty Start Date End Date Pcp, [place] [address] PCP - General Family Medicine 02/25/25 Francisco Javier Eller MD [address] [place] [address] Residential Finish Carpenter 03/02/25 documented as of this encounter
--- OUTSIDE RECORDS SUMMARY | 2025-03-26 12:25 | XMS_ITS | Encounter Summary ---
Author Organization Healthcare Address [address] [place] [address] Care Team Providers Care Development Trainer Name Role Phone Pcp, No Primary Care Provider Unavailabl e Francisco Javier Eller MD Unavailable [phone] Encounter Details Date Type Department Care Team (Late st Contact Info) Description 03/14/2025 Orders Only Cardiothoracic Surgery [address] [place] [address] Indra Mcintosh M, HELP DESK SPECIALIST [address] [place] [address] Social History Tobacco Use Types [...] were you homeless or living in a alf (including now)? No 02/27/2025 Utilities Answer Date [...] Description 03/27/2025 9:00 AM EDT Office Visit [address] [place] [address] Keny Chin MD 3101 [facility] 100 [place] [address] 03/29/2025 12:20 PM EDT Office Visit [facility] Cardiothoracic [address], [facility] [address] [place] [address] Keny Tristan MD [address] [facility] [address] [place] [address] 04/10/2025 9:00 AM EDT Office Visit [facility] [address] [place] [address] Leela Chin MD 3101 [facility] [address] [place] [address] documented as of this encounter Visit Diagnoses Not on filedocumented in this encounter Additional Health Concerns Assessment Noted Time A fall risk assessment has been complete d for the patient 03/12/2025 10:07 AM EDT A Body Mass Index follow-up plan has been documented for the patient 03/12/2025 10:37 AM EDT documented as of this encounter Care Teams Development Trainer Relationship Specialty Start Date End Date [place], [place] [address] PCP - General Family Medicine 02/25/25 Francisco Javier Eller MD [facility] [place] [address] Guide Alpine 03/02/25 documented as of this encounter
--- OUTSIDE RECORDS SUMMARY | 2025-03-26 12:25 | XMS_ITS | Encounter Summary ---
Author Organization Healthcare Address [address] [place] [address] Care Team Providers Care Consulting It Architect Name Role Phone Pcp, No Primary Care [...] any time in the past 12 m [facility], were you homeless or living in a long term (including now)? No 02/27/2025 Utilities Answer Date Recorded In the past 12 months has [employer] electric, gas, oil, or water company threatened [...] Description 03/27/2025 9:00 AM EDT Office Visit [facility] [address] [place] [address] Keny Chin MD 3101 [facility] [address] [place] [address] 03/29/2025 12:20 PM EDT Office Visit [facility] Cardiothoracic [address], [address] [place] [address] Keny Tristan MD [address] [facility] [address] [place] [address] 04/10/2025 9:00 AM EDT Office Visit [facility] [address] [place] [address] Leela Chin MD [address] [facility] 100 [place] [address] documented as of this encounter Visit Diagnoses Not on filedocumented in this encounter Additional Health Concerns Assessment Noted Time A Body Mass Index follow-up plan has been documented for the patient 03/06/2025 9:43 AM EDT documented as of this encounter Care Teams Consulting It Architect Relationship Specialty Start Date End Date Pcp, [place] [address] PCP - General Family Medicine 02/25/25 documented as of this encounter
--- OUTSIDE RECORDS SUMMARY | 2025-03-26 12:25 | XMS_ITS | Encounter Summary ---
Author Organization Healthcare Address [address] [place] [address] Care Team Providers Care Wire Tinner Name Role Phone Pcp, No Primary Care Provider Unavailvidal e Francisco Javier Eller MD Unavailable [phone] Encounter Details Date Type Department Care Team (Late st Contact Info) Description 03/07/2025 Telephone [facility] Inpatient [address] [place] [address] Barbara Martins CV TELE-PROGRESSIVE Social History Tobacco [...] any time in the past 12 m [facility], were you homeless or living in a [...] Description 03/27/2025 9:00 AM EDT Office Visit [address] [address] Keny Chin MD [address] [place] [address] 03/29/2025 12:20 PM EDT Office Visit [facility] [address], [address] [place] [address] Keny Tristan MD [address] [place] [address] 04/10/2025 9:00 AM EDT Office Visit [address] [address] Leela Chin MD [address] [place] [address] 100 [place] [address] documented as of this encounter Visit Diagnoses Not on filedocumented in this encounter Additional Health Concerns Assessment Noted Time A Body Mass Index follow-up plan has been documented for the patient 03/07/2025 8:32 AM EDT documented as of this encounter Care Teams Wire Tinner Relationship Specialty Start Date End Date Pcp, [place] [address] PCP - General Family Medicine 02/25/25 [facility] [id number] Manager Agriculture 03/02/25 documented as of this encounter
--- OUTSIDE RECORDS SUMMARY | 2025-03-26 12:25 | XMS_ITS | Encounter Summary ---
Author Organization [facility] Address [address] [place] [address] Care Team Providers Care Hardware Trainer Name Role Phone Pcp, No Primary [...] Description 03/27/2025 9:00 AM EDT Office Visit [facility] [address] [place] [address] Keny Chin MD 3101 [facility] 100 [place] [address] 03/29/2025 12:20 PM EDT Office Visit [facility] [address], [address] [place] [address] Keny Tristan MD [address] [place] [address] 04/10/2025 9:00 AM EDT Office Visit [facility] [address] [facility] [place] [address] Leela Chin MD [address] [facility] [address] [place] [address] documented as of this encounter Visit Diagnoses Not on filedocumented in this encounter Additional Health Concerns Assessment Noted Time A Body Mass Index follow-up plan has been documented for the patient 03/06/2025 9:43 AM EDT documented as of this encounter Care Teams Hardware Trainer Relationship Specialty Start Date End Date Pcp, Heaven [address] [place] [address] PCP - General Family Medicine 02/25/25 documented as of this encounter
--- OUTSIDE RECORDS SUMMARY | 2025-03-26 12:26 | XMS_ITS | Encounter Summary ---
Author Organization Healthcare Address [address] [place] [address] Care Team Providers Care Manager Clinical Pharmacy Name Role Phone Pcp, No Primary Care Provider Francisco Javier Mendez MD Unavailable [phone] Encounter Details Date Type Department Care Team (Latest Contact Info) Description 03/26/2025 Travel Social History Tobacco Use Types Packs/Day [...] 03/27/2025 9:00 AM EDT Office Visit [address] [phone] Keny Chin MD [address] [place] [address] 03/29/2025 12:20 PM EDT Office [facility] [address], [facility] [address] [place] [address] Keny Tristan MD [address] [address] 04/10/2025 9:00 AM EDT Office Visit [address] [address] Leela Chin MD [address] [place] [address] documented as of this encounter Visit Diagnoses Not on filedocumented in this encounter Additional Health Concerns Assessment Noted Time A fall risk assessment has been complete d for the patient 03/12/2025 10:07 AM EDT A Body Mass Index follow-up plan has been documented for the patient 03/26/2025 11:07 AM EDT documented as of this encounter Care Teams Manager Clinical Pharmacy Relationship Specialty Start Date End Date Pcp, Heaven [address] [place] [address] PCP - General Family Medicine 02/25/25 Francisco Javier Eller MD [address] [place] [address] Ged Instructor 03/02/25 documented as of this encounter
--- OUTSIDE RECORDS SUMMARY | 2025-03-26 12:26 | XMS_ITS | Clinical Summary ---
Author Organization [email or web address] Address [address] [place] [address] Care Team Providers Care Electronics Design Engineer Name Role Phone Subha Cates MD Primary Care Provider Francisco Javier Eller MD Unavailable Khalida Gustafson MD Unavailable Allergies No known active allergies Medications buprenorphine-na loxone (SUBOXONE) 8-[address] 2 films under the tongue daily. 11/14/2024 Active Active Problems Problem Noted Date Diagnosed Date Drainage from wound 12/29/2024 Hepatitis C Chest pain Presence of prosthetic heart valve Encounters Date Type Department Care Team Description 03/21/2025 Abstract [facility] Cardiothoracic Surgery [address] [address] Mita Myles CMA 01/23/2025 Telephone [facility] Cardiothoracic Surgery [address] [address] Mita Myles CMA Follow up appt (Needs CT Chest and Follow up appt.) 01/09/2025 9:30 AM EDT Office Visit [facility] Cardiothoracic Surgery [address] [address] Khalida Gustafson MD Drainage from wound (Primary Dx) 01/04/2025 Orders Only [facility] Cardiothoracic Surgery - [address] [facility] [address] [address] Provider, MD Dom from Last [...] on file Legal Sex Male 12:29 PM 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 GAS SERVICER Gender Identity Not on file Sexual Orientation [...] Depression Screening (12+) 2000 HIV Screening 2003 DTAP/TDAP/TD VACCINES (4 - T d or Tdap) 04/16/2024 04/16/2014, 02/03/2013, 10/29/2011 COVID-19 VACCINE (2023-2 5 season) 2024 01/07/2021 Influenza Vaccine (Season Ended) 2025 Tobacco Cessation Counseling and Screening (12+) 01/09/2026 01/09/2025 Lipid Panel 02/28/2028 02/27/2025 Pneumococcal Vaccine: 0-49 Years Aged Out No longer eligible b ased on patient's age to complete this topic Procedures Procedure Name Priority Date/Time Associated Diagnosis Comments EXTERNAL CARDIOLOGY - MISC Routine 12/25/2024 1:22 PM EDT from Last 3 Months Results * EXTERNAL CARDIOLOGY - MISC (12/25/2024 1:22 PM EDT) Anatomical Region Laterality Modality Other us Historical Provider CV CARDIAC SERVICES ORDER DEUCE Final Result from Last [address] [place] [address] [place] [address] [employer] Care Teams Electronics Design Engineer Relationship Specialty [place] [address] [place] [address] PCP - General Family Medicine 11/21/24 Francisco Javier Eller MD [address] [place] [address] Railroad Operating Engineer Cardiology 11/21/24 Khalida Gustafson MD [address] [place] [address] Surgeon Cardiothoracic Surgery 01/09/25
--- OUTSIDE RECORDS SUMMARY | 2025-03-26 12:26 | XMS_ITS | Encounter Summary ---
Author Organization [facility] Address [address] [place] [address] Care Team Providers Care Chief Librarian Circulation Department Name Role Phone Pcp, No Primary Care Provider Unavailvidal e Francisco Javier Eller MD Unavailable [phone] Encounter Details Date Type Department Care Team (Late st Contact Info) Description 03/14/2025 Telephone [facility] [address] [place] [address] Leela Ayala RN [id number] [phone] Social History Tobacco Use Types Packs/Day Years [...] any time in the past 12 m [facility], were you homeless or living in a [...] Office Visit [facility] [address] [place] [address] Keny Chin MD [address] [address] 03/29/2025 12:20 PM EDT Office Visit [facility] [address], [address] [place] [address] Keny Tristan MD [address] [place] [address] 04/10/2025 9:00 AM EDT Office Visit [facility] [address] [facility] [place] [address] Leela Chin MD [address] [facility] [address] [place] [address] documented as of this encounter Visit Diagnoses Not on filedocumented in this encounter Additional Health Concerns Assessment Noted Time A fall risk assessment has been complete d for the patient 03/12/2025 10:07 AM EDT A Body Mass Index follow-up plan has been documented for the patient 03/12/2025 10:37 AM EDT documented as of this encounter Care Teams Chief Librarian Circulation Department Relationship Specialty Start Date End Date Pcp, [place] [address] PCP - General Family Medicine 02/25/25 Francisco Javier Eller MD [address] [place] [address] Industrial Services Worker 03/02/25 documented as of this encounter
--- OUTSIDE RECORDS SUMMARY | 2025-03-26 12:26 | XMS_ITS | Encounter Summary ---
Author Organization Healthcare Address [address] [place] [address] Care Team Providers Care Ware Tester Name Role Phone Pcp, No Primary Care [...] any time in the past 12 m ont, were you homeless or living in a senior care (including now)? No 02/27/2025 Utilities Answer Date Recorded In the past 12 months has th e [employer], gas, oil, or water [employer] threatened to shut off services in your [...] AM EDT Office Visit [facility] [address] [place] [address] Keny Chin MD [address] [facility] [address] [place] [address] 03/29/2025 12:20 PM EDT Office Visit [facility] Cardiothoracic [address], [address] [place] [address] Keny Tristan MD [address] [place] [phone] 04/10/2025 9:00 AM EDT Office Visit [facility] [address] [place] [address] Leela Chin MD [address] [facility] [address] [place] [address] documented as of this encounter Visit Diagnoses Not on filedocumented in this encounter Additional Health Concerns Assessment Noted Time A Body Mass Index follow-up plan has been documented for the patient 03/06/2025 9:43 AM EDT documented as of this encounter Care Teams Ware Tester Relationship Specialty Start Date End Date Pcp, [place] [address] [place] [address] PCP - General Family Medicine 02/25/25 documented as of this encounter
--- OUTSIDE RECORDS SUMMARY | 2025-03-26 12:26 | XMS_ITS | Encounter Summary ---
Author Organization Healthcare Address [address] [place] [address] Care Team Providers Care Cardiovascular Invasive Specialist Name Role Phone Pcp, No Primary Care Provider Francisco Javier Mendez MD Unavailable [phone] Encounter Details Date Type Department Care Team [...] Description 03/27/2025 9:00 AM EDT Office Visit [place] [phone] Keny Chin MD [address] [place] [address] 03/29/2025 12:20 PM EDT Office Visit [facility] Cardiothoracic [address], [facility] [address] [place] [address] Keny Tristan MD [id number] [place] [address] 04/10/2025 9:00 AM EDT Office Visit [address] [phone] Leela Chin MD [address] [place] [phone] documented as of this encounter Visit Diagnoses Not on filedocumented in this encounter Additional Health Concerns Assessment Noted Time A Body Mass Index follow-up plan has been documented for the patient 03/08/2025 1:43 PM EDT documented as of this encounter Care Teams Cardiovascular Invasive Specialist Relationship Specialty Start Date End Date Pcp, No [address] [place] [address] PCP - General Family Medicine 02/25/25 Francisco Javier Eller MD [address] [place] [address] Composition Roll Maker And Cutter 03/02/25 documented as of this encounter
--- OUTSIDE RECORDS SUMMARY | 2025-03-26 12:26 | XMS_ITS | Encounter Summary ---
Author Organization [employer] Address [address] [place] [address] Care Team Providers Care Land Surveyor Assistant Name Role Phone Subha Cates MD Primary Care Provider Francisco Javier Eller MD Unavailable [phone] Khalida Gustafson MD Unavailable [phone] Encounter Details Date Type Department Care Team (Late st Contact Info) Description 03/21/2025 Abstract [facility] Cardiothoracic Surgery - [address] [facility] [address] [address] Mita Myles [facility] Social History Tobacco Use Types Packs/Day Years Used Date Smoking Tobacco: Former Cigarettes Smokeless Tobacco: Never Alcohol Use Standard Drinks/Week Comments Never 0 (1 standard drink = 0.6 oz pur e alcohol) Sex and Gender Information Value Date Recorded Sex Assigned at Not on file 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 Gender Identity Not on file Sexual Orientation Not on file documented as of this encounter Plan of Treatment Not on file documented as of this encounter Visit Diagnoses Not on filedocumented in this encounter Care Teams Land Surveyor Assistant Relationship Specialty [place] [address] [place] [phone] PCP - General Family Medicine 11/21/24 Francisco [facility] [place] [phone] Buckle Frame Shaper Cardiology 11/21/24 Khalida Gustafson MD [address] [place] [address] Surgeon Cardiothoracic Surgery 01/09/25 documented as of this encounter
--- OUTSIDE RECORDS SUMMARY | 2025-03-26 12:26 | XMS_ITS | Referral Summary ---
Author Organization [employer] Address [address] [facility] [facility] [place] [address] Care Team Providers Care Counselor Supervisor Name Role Phone Subha Cates MD Primary Care Provider Francisco Javier Eller MD Unavailable [phone] Khalida Gustafson MD Unavailable [phone] Encounters Date Type Department Care Team Description 03/21/2025 Abstract [facility] Cardiothoracic Surgery [address] [address] Mita Myles CMA 01/23/2025 Telephone [facility] Cardiothoracic Surgery [address] [address] Mita Myles CMA Follow up appt (Needs CT Chest and Follow up appt.) 01/09/2025 9:30 AM EDT Office Visit [facility] Cardiothoracic Surgery [address] [address] Khalida Gustafson MD Drainage from wound (Primary Dx) 01/04/2025 Orders Only [facility] Cardiothoracic Surgery [address] [address] Provider, MD Dom from Last 3 Months Allergies No known [...] on file 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
--- OUTSIDE RECORDS SUMMARY | 2025-03-26 12:26 | XMS_ITS | Clinical Summary ---
Author Organization [facility] Address [address] [place] [address] Care Team Providers Care Supervisor Spinning Name Role Phone Pcp, No Primary Care Provider Unavailvidal e Francisco Javier Eller MD Unavailable [phone] Allergies No known active allergies Medications Buprenorphine [...] continue 1 each 025 Active HYDROcodone-aceta minophen ([place]) 5-325 MG tablet Take 1 tablet by [...] Encounters Date Type Department Care Team Description 03/26/2025 11:40 AM EDT Office Visit [facility] Cardiothoracic [address], [address] [place] [address] Sherlyn Cisse MD Presence of prosthetic heart valve (Primary Dx) 03/26/2025 9:43 AM EDT Hospital Encounter [facility] Radiology [address], [address] [place] [address] Presence of prosthetic heart valve 03/26/2025 Travel 03/14/2025 Telephone [facility] Cardiothoracic [address], [address] [place] [address] Leela Ayala, RN 03/14/2025 Orders Only Cardiothoracic Surgery [address] [place] [address] Indra Mcintosh, TELETYPIST 03/12/2025 9:40 AM EDT Office Visit [facility] Cardiothoracic [address], [address] [place] [phone] Sherlyn Cisse MD Sternal wound dehiscence, initial encounter (Primary Dx) 03/12/2025 Telephone [facility] Cardiothoracic [address], [address] [place] [address] Leela Ayala, RN 03/12/2025 Travel 03/08/2025 2:00 PM EDT Office Visit [facility] Cardiothoracic [address], [address] [place] [address] Keny Tristan MD Sternal wound dehiscence, initial encounter (Primary Dx) 03/08/2025 Travel 03/07/2025 Telephone [facility] [address] [place] [address] Barbara Martins 03/07/2025 Clinical Support [facility] [address] [place] [phone] Saul Bey, PharmD 02/27/2025 Travel 02/26/2025 9:00 AM EDT - 02/26/2025 11:30 AM EDT Surgery [facility] OPERATING ROOM [address] [place] [address] Sherlyn Cisse MD CHEST WASHOUT, REMOVAL OF STERNAL PLATES 02/26/2025 8:43 AM EDT Anesthesia Event [facility] [address] [place] [address] Praneeth Jasmine MD Ram, Harish, MD 02/26/2025 Travel 02/25/2025 2:42 AM EDT - 03/06/2025 1:35 PM EDT Hospital Encounter [facility] [address] [place] [address] Franco Guillory MD Ogburn, Erinn A, MD Chest wall abscess (Primary Dx); Bacteremia due to Staphylococcus aureus Discharge Disposition: Home or Self Care 02/25/2025 Patient Outreach [facility] Medicine Specialties [address] [place] [address] Gavin Vargas 02/25/2025 Travel 02/24/2025 Orders Only External Location [address] [place] [address] Provider, External from Last 3 Months Immunizations Immunization Administration Dates Next Due [employer] COVID-19 Vaccine (Blue Cap) 18+ 01/08/20 21 [...] Pulse 91 03/26/2025 10:11 AM EDT Temperature 36.6 C (97.8 F) 03/06/2025 7:30 AM EDT Respiratory Rate 18 03/06/2025 7:30 AM EDT Oxygen Saturation 98% 03/26/2025 10:11 AM EDT Inhaled Oxygen Concentration - - Weight 118 kg (259 lb 4.2 oz) 03/26/2025 10:11 A M EDT Height 188 cm (6' 2 ) 03/26/2025 10:11 AM EDT Body Mass Index 33.29 03/26/2025 10:11 AM EDT Plan of Treatment Upcoming Encounters Date Type Department Care Team (Late st Contact Info) Description 03/27/2025 9:00 AM EDT Office Visit [address] [phone] Keny Chin MD [address] [place] [address] [address] [place] [address] 03/29/2025 12:20 PM EDT Office Visit [facility] Cardiothoracic [address], [address] [place] [address] Keny Tristan MD [address] [place] [address] 04/10/2025 9:00 AM EDT Office Visit [address] [address] Leela Chin MD [address] [place] [phone] Health Maintenance Due Date Last Done [...] Td or Tdap) 04/16/2024 04/16/2014, 02/03/2013, 10/29/2011 [id number] Vaccine (2 - season) 2024 01/07/2021 [facility]-Influenza Vaccine (Season Ended) 2025 [facility]- SDOH Screenings 08/30/2025 [facility]-Adult SDOH Screenings 08/30/2025 02/27/2025 [facility]-Depression Screening 03/26/2026 03/26/2025 [facility]-Zoster Vaccines (1 of 2) 2038 [facility]-HIV Screening Completed 02/25/2025 [facility]-Obesity Intervention Completed 025, 03/12/2025, 03/08/2025, Additional history exists [facility]-HIB Vaccines Aged Out [...] AM EDT Presence of prosthetic heart valve XR CHEST 2 VIEWS Routine 03/26/2025 9:56 AM EDT Presence of prosthetic heart valve CBC W/O DIFFERENTIAL Routine 03/26/2025 9:39 AM EDT Presence of prosthetic heart valve BASIC METABOLIC PANEL, PLASMA Routine 03/26/2025 9:39 AM EDT Presence of prosthetic heart valve CBC WITH AUTO DIFFERENTIAL Routine 03/19/2025 C-REACTIVE PROTEIN, PLASMA Routine 03/19/2025 UREA NITROGEN, PLASMA Routine 03/19/2025 CREATININE, PLASMA Routine 03/19/2025 CBC WITH AUTO DIFFERENTIAL Routine 03/12/2025 C-REACTIVE [...] 9:3 4 AM EDT Chest wall abscess PB ANESTHESIA NON-TIMED PROCEDURE PLACEHOLDER Routine 02/26/2025 9:33 AM EDT PB ANESTHESIA PLACEHOLDER Routine 02/26/2025 8:53 AM EDT NV AN ELECTIVE ENDOTRACHEAL AIRWAY Routine 02/26/2025 8:53 [...] EDT from Last 3 Months Results * GENERAL (03/26/2025 11:40 AM EDT) [...] Tolerated well, no immediate complications Meera Leos APRN IN CLINIC/BEDSIDE ORDERABLES Final [...] IMG XR PROCEDURES Final Result * (ABNORMAL) CBC W/O Differential (03/26/2025 9:39 AM EDT) Only the most recent of4 resultswithin the time period is included. WBC Count 5.65 3.70 - 10.30 10*3/uL LAB HEMATOLOGY METHOD 03/26/2025 10:35 AM EDT [facility] RBC Count 6.12(H) 4.60 - 6.10 10*6/uL LAB HEMATOLOGY METHOD 03/26/2025 10:35 AM EDT [facility] HGB 17.4 13.7 - 17.5 g/dL LAB HEMATOLOGY METHOD 03/26/2025 10:35 AM EDT [facility] HCT 53.5(H) 40.0 - 51.0 % LAB HEMATOLOGY METHOD 03/26/2025 10:35 AM EDT [facility] Platelet Count 168 155 - 369 10*3/uL LAB HEMATOLOGY METHOD 03/26/2025 10:35 AM EDT [facility] MCV 87 79 - 98 fL LAB HEMATOLOGY METHOD 03/26/2025 10:35 AM EDT [facility] MCH 28.4 26.0 - 32.0 pg LAB HEMATOLOGY METHOD 03/26/2025 10:35 AM EDT [facility] MCHC 32.5 30.7 - 35.5 g/dL LAB HEMATOLOGY METHOD 03/26/2025 10:35 AM EDT [facility] RDW 13.4 11.5 - 14.5 % LAB HEMATOLOGY METHOD 03/26/2025 10:35 AM EDT [facility] MPV 10.6 8.8 - 12.5 fL LAB HEMATOLOGY METHOD 03/26/2025 10:35 AM EDT [facility] nRBC 0.0 <=0.0 per 100 WBCs LAB HEMATOLOGY METHOD 03/26/2025 10:35 AM EDT [facility] Blood Venous blood specimen / Unknown Venipuncture / Unknown 03/26/2025 9:39 AM EDT 03/26/2025 9:40 AM EDT us Sherlyn Cisse MD LAB BLOOD ORDERABLES Final Res ult [facility] [address] [place] [address] * (ABNORMAL) Basic Metabolic Panel, Plasma (03/26/2025 9:39 AM EDT) Only the most recent of4 resultswithin the time period is included. Glucose, Plasma 59(L) 74 - 99 mg/dL 03/26/2025 10:51 AM EDT [facility] BUN, Plasma 11 7 - 21 mg/dL 03/26/2025 10:51 AM EDT [facility] Creatinine, Plasma 1.06 0.70 - 1.20 mg/dL 03/26/2025 10:51 AM EDT [facility] BUN/Creatinine Ratio 10 03/26/2025 10:51 AM EDT [facility] Sodium, Plasma 140 136 - 145 mmol/L 03/26/2025 10:51 AM EDT [facility] Potassium, Plasma 4.3 3.6 - 4.9 mmol/L 03/26/2025 10:51 AM EDT [facility] Chloride, Plasma 102 97 - 107 mmol/L 03/26/2025 10:51 AM EDT [facility] CO2, Plasma 27 22 - 29 mmol/L 03/26/2025 10:51 AM EDT [facility] Anion Gap 11 6 - 16 mmol/L 03/26/2025 10:51 AM EDT [facility] Total Calcium, Plasma 10.3(H) 8.9 - 10.2 mg/dL 03/26/2025 10:51 AM EDT [facility] eGFRcr 93.3 mL/min/1.7 3m*2 03/26/2025 10:51 AM EDT [facility] Comment:Reported eGFRcr in m L/min/1.73m2 is based the CKD-EPI 2020 equation that does not use a race coefficient. Blood Venous blood specimen / Unknown Venipuncture / Unknown 03/26/2025 9:39 AM EDT 03/26/2025 9:40 AM EDT Sherlyn Cisse MD LAB BLOOD ORDERABLES Final Res ult [facility] [address] [place] [address] * Creatinine, Plasma (03/19/2025) Only the most recent of2 resultswithin the time period is included. External Creatinine Blood 0.90 mg/dL Blood Venous blood specimen / Unknown 03/19/2025 Historical Provider LAB BLOOD ORDERABLES Diandra l Result * (ABNORMAL) CBC and Differential (03/19/2025) Only the most recent of4 resultswithin the time period is included. External WBC 3.8(A) 4.8 - 10.8 K/mm3 External Red Blood Cell (RBC) 4.99 External Hemoglobin (Hgb) 14.70 External Hematocrit (Hct) 43.9 External Platelet Count (Plt) 145 External Neutrophil Abs 2.1 External Lymphocyte-Abso lute 1.1 External Monocyte Absolute 0.3 External Eos-Absolute 0.2 0.0 - 0.4 K/mm3 Blood Venous blood specimen / Unknown 03/19/2025 Result [facility] Provider MD LAB BLOOD ORDERABLES Edit ed Result - Final * (ABNORMAL) C-Reactive Protein, Plasma (03/19/2025) Only the most recent of3 resultswithin the time period is included. Pathologist [facility] External C-Reactive Protein(CRP) 13.9(A) 0 - 4 mg/L Blood Venous blood specimen / Unknown 03/19/2025 Result [facility] Provider MD LAB BLOOD ORDERABLES Diandra l Result * Urea Nitrogen, Plasma (03/19/2025) Only the most recent of2 resultswithin the time period is included. Pathologist [facility] External BUN 15 Blood Venous blood specimen / Unknown 03/19/2025 Result [facility] LAB BLOOD ORDERABLES Diandra l Result * PICC SINGLE LUMEN (SMARTFORM LINK) (03/04/2025 4:49 PM EDT) Narrative Maxwell Roper RN - 03/04/2025 4:49 PM EDT Maxwell Roper RN 03/04/2025 4:50 PM Insert PICC line Date/Time: 03/04/2025 4:49 PM Performed by: Maxwell Roper RN Authorized by: Sherlyn Cisse MD Cammal Protocol: Verbal consent obtained?: Yes Written consent [...] vein Patient position: Flat Catheter Lot #: [id number] Catheter skidway man: [place] Catheter placed: Single lumen Catheter size: 4 Fr Catheter trimmed length: 51 Catheter threaded length: 51 Vein placed in: SVC Catheter cm indwellin Catheter cm outside: 0 Placement confirmed by: [employer] 3CG technology Pre-procedure: Landmarks identified Ultrasound guidance: [...] LAB HEMATOLOGY METHOD 03/03/2025 3:14 AM EDT [facility] Platelet Estimate Platelet smear estimate consistent with automated count LAB HEMATOLOGY METHOD 03/03/2025 3:14 AM EDT [facility] Blood Venous blood specimen / Unknown Venipuncture / Unknown 03/03/2025 2:11 AM EDT 03/03/2025 2:25 AM EDT us Kelsie Carty APRN LAB BLOOD ORDERABLES Final R esult [facility] [address] [place] [address] * (ABNORMAL) Manual Differential (03/03/2025 2:11 AM EDT) Blasts % 0 % LAB HEMATOLOGY METHOD 03/03/2025 3:14 AM EDT [facility] Promyelocytes % 0 % LAB HEMATOLOGY METHOD 03/03/2025 3:14 AM EDT [facility] Myelocytes % 2 % LAB HEMATOLOGY METHOD 03/03/2025 3:14 AM EDT [facility] Metamyelocytes % 3 % LAB HEMATOLOGY METHOD 03/03/2025 3:14 AM EDT [facility] Neutrophils % 75 % LAB HEMATOLOGY METHOD 03/03/2025 3:14 AM EDT [facility] Lymphocytes % 14 % LAB HEMATOLOGY METHOD 03/03/2025 3:14 AM EDT [facility] Reactive Lymphocytes % 0 % LAB HEMATOLOGY METHOD 03/03/2025 3:14 AM EDT [facility] Monocytes % 3 % LAB HEMATOLOGY METHOD 03/03/2025 3:14 AM EDT [facility] Eosinophils % 3 % LAB HEMATOLOGY METHOD 03/03/2025 3:14 AM EDT [facility] Basophils % 0 % LAB HEMATOLOGY METHOD 03/03/2025 3:14 AM EDT [facility] Blasts Absolute 0.00 10*3/UL LAB HEMATOLOGY METHOD 03/03/2025 3:14 AM EDT [facility] Promyelocytes Absolute 0.00 10*3/uL LAB HEMATOLOGY METHOD 03/03/2025 3:14 AM EDT [facility] Myelocytes Absolute 0.21 10*3/uL LAB HEMATOLOGY METHOD 03/03/2025 3:14 AM EDT [facility] Metamyelocytes Absolute 0.31 10*3/uL LAB HEMATOLOGY METHOD 03/03/2025 3:14 AM EDT [facility] Neutrophils Absolute 7.72(H) 1.60 - 6.10 10*3/uL LAB HEMATOLOGY METHOD 03/03/2025 3:14 AM EDT [facility] Lymphocytes Absolute 1.44 1.20 - 3.90 10*3/uL LAB HEMATOLOGY METHOD 03/03/2025 3:14 AM EDT [facility] Reactive Lymphocytes Absolute 0.00 10*3/uL LAB HEMATOLOGY METHOD 03/03/2025 3:14 AM EDT [facility] Monocytes Absolute 0.31 0.30 - 0.90 10*3/uL LAB HEMATOLOGY METHOD 03/03/2025 3:14 AM EDT [facility] Eosinophils Absolute 0.31 0.00 - 0.50 10*3/uL LAB HEMATOLOGY METHOD 03/03/2025 3:14 AM EDT [facility] Basophils Absolute 0.00 0.00 - 0.10 10*3/uL LAB HEMATOLOGY METHOD 03/03/2025 3:14 AM EDT [facility] Blood Venous blood specimen / Unknown Venipuncture / Unknown 03/03/2025 2:11 AM EDT 03/03/2025 2:25 AM EDT us Kelsie Carty APRN LAB BLOOD ORDERABLES Final R esult Performing Organization Address City/[facility]/ZIP [place] [address] * Blood Culture (Aerobic/Anaerobet Set) (03/03/2025 2:11 AM EDT) Only the most recent of8 resultswithin the time period is included. Culture No growth at day 5 GEENA 03/08/2025 4:02 AM EDT [facility] Blood Structure of antecubital vein / Unknown Venipuncture / Unknown 03/03/2025 2:11 AM EDT 03/03/2025 3:04 AM EDT Narrative [facility] - 03/08/2025 4:02 AM EDT Low blood volume submitted, results may be compromised us Kelsie Carty APRN LAB MICROBIOLOGY - GENERAL O RDERABLES Final Result Performing Organization Address City/[facility] [place] [address] * Magnesium, Plasma (03/03/2025 2:11 AM EDT) Only the most recent of3 resultswithin the time period is included. Magnesium, Plasma 2.2 1.9 - 2.4 mg/dL 03/03/2025 2:55 AM EDT [facility] Blood Venous blood specimen / Unknown Venipuncture / Unknown 03/03/2025 2:11 AM EDT 03/03/2025 2:23 AM EDT us Keslie Carty TELETYPIST LAB BLOOD ORDERABLES Final R esult [facility] [address] [place] [address] * (ABNORMAL) Hepatic function panel (03/03/2025 2:11 AM EDT) [facility] Conjugated Bilirubin, Plasma <0.2 <=0.3 mg/dL 03/03/2025 2:55 AM EDT [facility] Comment:Hemolyzed, result ma y be falsely decreased. Alkaline Phosphatase, Plasma 99 40 - 115 U/L 03/03/2025 2:55 AM EDT [facility] Total Bilirubin, Plasma 0.3 0.2 - 1.1 mg/dL 03/03/2025 2:55 AM EDT [facility] Albumin, Plasma 3.3(L) 3.5 - 5.2 g/dL 03/03/2025 2:55 AM EDT [facility] Total Protein 7.9 6.3 - 7.9 g/dL 03/03/2025 2:55 AM EDT [facility] ALT, Plasma 36 10 - 50 U/L 03/03/2025 2:55 AM EDT [facility] AST, Plasma 46 10 - 50 U/L 03/03/2025 2:55 AM EDT [facility] Comment:Hemolyzed, result ma y be falsely increased. Blood Venous blood specimen / Unknown Venipuncture / Unknown 03/03/2025 2:11 AM EDT 03/03/2025 2:23 AM EDT us Kelsie Carty APRN LAB BLOOD ORDERABLES Final R esult [facility] [address] [place] [address] * PERIPHERAL IV (SMARTFORM LINK) (02/27/2025 6:13 [...] covered with: Transparent semipermeable dressing us Sherlyn Cisse MD IV THERAPY ORDERABLES [...] regurgitation. Tricuspid Valve: The leaflets appear thickened. 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 There appears to be restricted [...] is no recent study available for direct [id number] comparison. Left Ventricle Based on the linear [...] stenosis. Tricuspid Valve The leaflets appear thickened. 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 There appears to be restricted [...] is no recent study available for direct [id number] comparison. Wall Scoring Baseline Score Index: 1.00 [...] - 40.0 ug/mL 02/27/2025 11:21 AM EDT [facility] Blood Venous blood specimen / Unknown Venipuncture / Unknown 02/27/2025 10:46 AM EDT 02/27/2025 10:52 AM EDT Narrative [facility] - 02/27/2025 11:21 AM EDT Therapeutic Peak level: 20-40ug/mL Supra-therapeutic Peak level: >40 ug/mL Alejandro AARON LAB BLOOD ORDERABLES Final R esult Performing Organization Address [facility] Co de Phone Number [facility] [address] [place] [address] * Hemoglobin A1c (02/27/2025 4:33 AM EDT) Hemoglobin A1c 5.4 <5.7 % 02/27/2025 7:06 AM EDT [facility] Blood Venous blood specimen / Unknown Venipuncture / Unknown 02/27/2025 4:33 AM EDT 02/27/2025 4:45 AM EDT Narrative [facility] - 02/27/2025 7:06 AM EDT HA1C Interpretive Data: Diagnosis of Diabetes: Diabetic > or = 6.5% Pre-diabetic 5.7 to 6.4% Non-diabetic < or = 5.6% Glycemic Targets for Type I and Type II Diabetics: Non- Adults <7.0% Adults <6.0% Children and Adolescents <7.5% Source: [place] [employer]. Standards of medical care in diabetes,2017. Diabetes Care.2017:40 (suppl 1):S1-S135. Alejandro AARON LAB BLOOD ORDERABLES Final R [facility] services Performing Organization Address [facility] Co de Phone Number [facility] [address] [place] [address] * (ABNORMAL) Lipid panel (02/27/2025 4:33 AM EDT) Cholesterol, Plasma 108 <200 mg/dL 02/27/2025 5:14 AM EDT [facility] Comment: Cholesterol Reference Range (age >17 years): Desirable <200 mg/dL Borderline 200 to 239 mg/dL Undesirable >239 mg/dL HDL 28(L) >=40 mg/dL 02/27/2025 5:14 AM EDT [facility] Comment: HDL Cholesterol Reference Ranges (age >17 years): Female, acceptable > or = 50 mg/dL Male, acceptable > or = 40 mg/dL Triglycerides, Plasma 94 <150 mg/dL 02/27/2025 5:14 AM EDT [facility] Comment: Triglyceride Reference Range (age >17 years): Desirable: <150 mg/dL Borderline high: 150 to 199 mg/dL High: 200 to 499 mg/dL Very high: >499 mg/dL Increased risk of pancreatitis: >1000 mg/dL Cholesterol/HDL Ratio 4 02/27/2025 5:14 AM EDT [facility] LDL, Calculated 62 <100 mg/dL 5:14 AM EDT [facility] Comment: LDL Cholesterol Reference Range [...] 12 hours? No 02/27/2025 5:14 AM EDT [facility] Blood Venous blood specimen / Unknown Venipuncture / Unknown 02/27/2025 4:33 AM EDT 02/27/2025 4:42 AM EDT us Alejandro Sandoval PA LAB BLOOD ORDERABLES Final R esult [facility] [address] [place] [address] * XR Chest 1 View (02/27/2025 2:37 [...] signing this report, I, the attending physician, jefferyat I have personally reviewed the images/data for the aboveexamination(s) and agree with the final edited report. Drafted by EILEEN Alan on 02/27/2025 8:33 AM Final report signed by Cj Paulino MD on 02/27/2025 8:56 AM Sherlyn Cisse MD IMG XR PROCEDURES Final Result * (ABNORMAL) Routine Culture and Gram Stain (02/26/2025 10:10 AM EDT) Culture Light Growth 03/01/2025 3:23 PM EDT [facility] Culture Staphylococcus aureus(A) GEENA 03/01/2025 3:23 PM EDT [facility] Foreign Body Bone structure of [...] Final Result Performing Organization Address [facility] [place] [address] * Anaerobic Culture (02/26/2025 10:10 AM EDT) Only the most recent of2 resultswithin the time period is included. Pathologist [facility] Culture No anaerobes isolated 03/03/2025 5:50 AM EDT [facility] Foreign Body Bone structure of sternum / Unknown 02/26/2025 10:10 AM EDT 02/26/2025 11:21 AM EDT Comment:Pre-op diagnosis: Chest wall abscess [L02.213] Sherlyn Cisse MD LAB MICROBIOLOGY - GENERAL ORD ERABLES Final Result Performing Organization Address [facility] [place] [address] * (ABNORMAL) POCT arterial blood gas gem [...] - 26 mmol/L 02/26/2025 9:44 AM EDT [facility] Total Hemoglobin, Arterial, Whole Blood 13.6(L) 13.7 - 17.5 g/dL 02/26/2025 9:44 AM EDT [facility] Hematocrit, Arterial 41.0 40 - 51.0 % 02/26/2025 9:44 AM EDT [facility] Sodium, Arterial 135(L) 136 - 145 mmol/L 02/26/2025 9:44 AM EDT [facility] Potassium, Arterial 4.1 3.6 - 4.9 mmol/L 02/26/2025 9:44 AM EDT [facility] Chloride, Whole Blood 104 97 - 107 mmol/L 02/26/2025 9:44 AM EDT [facility] Glucose, Arterial 106(H) 74 - 99 mg/dL 02/26/2025 9:44 AM EDT [facility] Ionized Calcium, Arterial 4.7 4.6 - 5.1 mg/dL 02/26/2025 9:44 AM EDT [facility] Lactate, Arterial 0.6 0.5 - 1.6 mmol/L 02/26/2025 9:44 AM EDT [facility] Body Temperature 37.0 Celsius 02/26/2025 9:44 AM EDT [facility] pH, Temp Corrected, Arterial 7.42 7.35 - 7.45 02/26/2025 9:44 AM EDT [facility] pCO2, Temp Corrected, Arterial 41 32 - 45 mm Hg 02/26/2025 9:44 AM EDT [facility] pO2, Temp Corrected, Arterial 105 83 - 108 mm Hg 02/26/2025 9:44 AM EDT [facility] Cutter Operator Helper ID Carina Jordan 02/26/2025 9:44 AM EDT [facility] Blood, Arterial Whole blood specimen / Unknown 02/26/2025 9:42 AM EDT 02/26/2025 9:44 AM EDT us Sherlyn Cisse MD LAB POINT OF CARE TE ST DOCKED DEVICE UNSOLICITED RESULTS Final Result [facility] [address] [place] [id number] * (ABNORMAL) Abscess Culture and Gram Stain (02/26/2025 9:34 AM EDT) Culture Light Growth 03/01/2025 3:22 PM EDT [facility] Culture Staphylococcus aureus(A) GEENA 03/01/2025 3:22 PM EDT [facility] Comment:The organism value f or this result has been updated. These results have been appended to the previously preliminary verified report. Gram Stain Result Few Polymorphonuclear leukocytes(A) 03/01/2025 3:22 PM EDT [facility] Gram Stain Result Few Gram positive cocci in pairs(A) 03/01/2025 3:22 PM EDT [facility] Swab Bone structure of sternum [...] Vancomycin GEENA 1 ug/ml: Susceptible us Sherlyn Cisse MD LAB MICROBIOLOGY - GENERAL ORD ERABLES Final Result [facility] [address] [place] [address] * Fungal Culture, Routine (02/26/2025 9:34 AM EDT) Culture No Fungal Growth at 1 Week 03/06/2025 9:03 AM EDT [facility] Swab Bone structure of sternum / Unknown 02/26/2025 9:34 AM EDT 02/26/2025 11:01 AM EDT Comment:Pre-op diagnosis: Chest wall abscess [L02.213] us Sherlyn Cisse MD LAB MICROBIOLOGY - GENERAL ORD ERABLES Final Result [facility] [address] [place] [address] * PB ANESTHESIA NON-TIMED PROCEDURE PLACEHOLDER (02/26/2025 [...] MD ANESTHESIA ORDERABLES Final Res ult * NV AN ELECTIVE ENDOTRACHEAL AIRWAY, PB ANESTHESIA PLACEHOLDER [...] ORDERABL ES Final Result [facility] BANK [address] [place] [address], * (ABNORMAL) Wound Culture and Gram Stain (02/25/2025 4:46 AM EDT) CULTURE READING WOUND Moderate Growth 02/27/2025 3:19 PM EDT [facility] CULTURE READING WOUND Staphylococcus aureus(A) GEENA 02/27/2025 3:19 PM EDT [facility] Comment:The organism value f or this result has been updated. These results have been appended to the previously preliminary verified report. Gram Stain Result Numerous Polymorphonuclear leukocytes(A) 02/27/2025 3:19 PM EDT [facility] Gram Stain Result Numerous Gram positive cocci in pairs(A) 02/27/2025 3:19 PM EDT [facility] Gram Stain Result Numerous Gram positive cocci in clusters(A) 02/27/2025 3:19 PM EDT [facility] Swab Skin structure / Unknown [...] Final Result Performing Organization Address [facility]/ZIP Co de Phone Number [facility] [address] [place] [address] * ED HIV 1/2 Antibody/Antigen Screen w/Reflex to HIV 1/2 Differentiation (02/25/2025 3:18 AM EDT) [facility] HIV 1 & 2 Antibody/Antigen Screen Non Reactive Non Reactive 02/25/2025 4:35 AM EDT [facility] Comment:Screening for HIV 1 & 2 antibodies, and P24 antigen is NONREACTIVE. No confirmatory testing is required. Blood Venous blood specimen / Unknown Venipuncture / Unknown 02/25/2025 3:18 AM EDT 02/25/2025 3:53 AM EDT Franco Guillory MD LAB BLOOD ORDERABLES Final Res ult Performing Organization Address City/[facility]/ZIP Co de Phone Number [facility] [address] [place] [address] * (ABNORMAL) Bacterial ID Gram Positive (02/25/2025 3:18 AM EDT) Pathologist [facility] Staphylococcus Result Detected( A) Not Detected 02/26/2025 4:46 AM EDT [facility] Comment:Assess if contaminan t or clinically relevant pathogen. Consider clinical stability and immune status of patient. Blood Venous blood specimen / Unknown Venipuncture / Unknown 02/25/2025 3:18 AM EDT 02/25/2025 4:04 AM EDT Narrative [facility] - 02/26/2025 4:46 AM EDT [...] MICROBIOLOGY - GENERAL ORD ERABLES Final Result [facility] [address] [place] [address] * Hepatitis C Virus (HCV) Quantitative PCR - ED (02/25/2025 3:18 AM EDT) [facility] Hepatitis C Virus (HCV) Quantitative Interpretation Not Detected Not Detected. 02/27/2025 2:45 PM EDT [facility] Blood Venous blood specimen / Unknown Venipuncture / Unknown 02/25/2025 3:18 AM EDT 02/25/2025 3:53 AM EDT Narrative [facility] - 02/27/2025 2:45 PM EDT [employer] M2000 HCV test is a Real Time [...] Organization Address City/[facility] [place] [address] * (ABNORMAL) Hepatitis C Antibody - ED (02/25/2025 3:18 AM EDT) Pathologist [facility] Hepatitis C Antibody Positive(A ) Negative 02/25/2025 4:40 AM EDT [facility] Blood Venous blood specimen / Unknown Venipuncture / Unknown 02/25/2025 3:18 AM EDT 02/25/2025 3:53 AM EDT Franco Guillory MD LAB BLOOD ORDERABLES Final Res ult Performing Organization Address [facility] [place] [address] * (ABNORMAL) Sed rate, automated (02/25/2025 3:18 AM EDT) Pathologist [facility] Sedimentation Rate 65(H) <15 mm/hr 2024 3:54 AM EDT [facility] Blood Venous blood specimen / Unknown Venipuncture / Unknown 02/25/2025 3:18 AM EDT 02/25/2025 3:40 AM EDT us Franco Guillory MD LAB BLOOD ORDERABLES Final Res ult Performing Organization Address City/[facility] [place] [address] * Phosphorus (02/25/2025 3:18 AM EDT) Phosphorus, Plasma 2.7 2.5 - 4.5 mg/dL 02/25/2025 4:23 AM EDT [facility] Blood Venous blood specimen / Unknown Venipuncture / Unknown 02/25/2025 3:18 AM EDT 02/25/2025 3:53 AM EDT us Franco Guillory MD LAB BLOOD ORDERABLES Final Res ult [facility] [address] [place] [address] * (ABNORMAL) CMP (02/25/2025 3:18 AM EDT) Glucose, Plasma 132(H) 74 - 99 mg/dL 02/25/2025 4:23 AM EDT [facility] BUN, Plasma 13 7 - 21 mg/dL 02/25/2025 4:23 AM EDT [facility] Creatinine, Plasma 0.86 0.70 - 1.20 mg/dL 02/25/2025 4:23 AM EDT [facility] BUN/Creatinine Ratio 15 02/25/2025 4:23 AM EDT [facility] Sodium, Plasma 137 136 - 145 mmol/L 02/25/2025 4:23 AM EDT [facility] Potassium, Plasma 3.7 3.6 - 4.9 mmol/L 02/25/2025 4:23 AM EDT [facility] Chloride, Plasma 101 97 - 107 mmol/L 02/25/2025 4:23 AM EDT [facility] CO2, Plasma 24 22 - 29 mmol/L 02/25/2025 4:23 AM EDT [facility] Anion Gap 12 6 - 16 mmol/L 02/25/2025 4:23 AM EDT [facility] Total Calcium, Plasma 9.2 8.9 - 10.2 mg/dL 02/25/2025 4:23 AM EDT [facility] Total Protein 7.4 6.3 - 7.9 g/dL 02/25/2025 4:23 AM EDT [facility] Albumin, Plasma 3.5 3.5 - 5.2 g/dL 02/25/2025 4:23 AM EDT [facility] AST, Plasma 20 10 - 50 U/L 02/25/2025 4:23 AM EDT [facility] Comment:Hemolyzed, result ma y be falsely increased. ALT, Plasma 16 10 - 50 U/L 02/25/2025 4:23 AM EDT [facility] Alkaline Phosphatase, Plasma 100 40 - 115 U/L 02/25/2025 4:23 AM EDT [facility] Total Bilirubin, Plasma 0.7 0.2 - 1.1 mg/dL 02/25/2025 4:23 AM EDT [facility] eGFRcr 115.1 mL/min/1.7 3m*2 02/25/2025 4:23 AM EDT [facility] Comment:Reported eGFRcr in m L/min/1.73m2 is based the CKD-EPI 2020 equation that does not use a race coefficient. Blood Venous blood specimen / Unknown Venipuncture / Unknown 02/25/2025 3:18 AM EDT 02/25/2025 3:53 AM EDT us Franco Guillory MD LAB BLOOD ORDERABLES Final Res ult [facility] [address] [place] [address] * CT THORACIC OUTSIDE IMAGES (02/24/2025 8:44 PM EDT) Anatomical Region Laterality Modality Computed Tomogra phy 02/24/2025 8:44 PM EDT External Provider IMG CT PROCEDURES Final Result from Last 3 Months Insurance [employer] [facility] MEDICAID Advance Directives * Full Code (Latest Code Status on File) Date Activated Date Inactivated Comments 02/25/2025 4:20 AM 03/06/2025 3:45 PM Question Answer Comments I have reviewed the capacity from the link above and, if needed, have updated to appropriate status: Yes Care Teams Supervisor Spinning Relationship Specialty Start Date End Date Pcp, No [address] [place] [id number] PCP - General Family Medicine 02/25/25 Francisco Javier Eller MD [address] [place] [id number] Manager Pmo 03/02/25
--- OUTSIDE RECORDS SUMMARY | 2025-03-26 12:26 | XMS_ITS ---
Author Organization [facility] Address [address] [place] [address] Care Team Providers Care Bender Helper Name Role Phone Pcp, No Primary Care Provider UnavailFrancisco Javier Perez MD Unavailable [phone] Hepatitis C Program Status:Closed (Closed) Start date:02/25/2025 Enrollment reason:HCV End date:02/25/2025 Close reason:HCV RNA Negative Continued Care and Services Coordination
--- OUTSIDE RECORDS SUMMARY | 2025-03-26 12:26 | XMS_ITS | Encounter Summary ---
Author Organization Healthcare Address [address] [place] [address] Care Team Providers Care Direct Support Professional Home Health Name Role Phone Pcp, No Primary Care Provider Francisco Javier Mendez MD Unavailable [phone] Encounter Details Date Type Department Care Team [...] in the past 12 m [facility], were you homeless or living [...] Description 03/27/2025 9:00 AM EDT Office Visit [address] [phone] Keny Chin MD [address] [place] [address] 03/29/2025 12:20 PM EDT Office Visit [facility] [address], [facility] [address] [place] [phone] Keny Tristan MD [address] [phone] 04/10/2025 9:00 AM EDT Office Visit [address] [phone] Leela Chin MD [address] [place] [phone] documented as of this encounter Visit Diagnoses Not on filedocumented in this encounter Additional Health Concerns Assessment Noted Time A fall risk assessment has been complete d for the patient 03/12/2025 10:07 AM EDT A Body Mass Index follow-up plan has been documented for the patient 03/12/2025 10:37 AM EDT documented as of this encounter Care Teams Direct Support Professional Home Health Relationship Specialty Start Date End Date Pcp, [facility] [address] [place] [address] PCP - General Family Medicine 02/25/25 Francisco Javier Eller MD [address] [place] [address] Flour Inspector 03/02/25 documented as of this encounter
[2025-03-26 12:29] LABS: Blood Urea Nitrogen 12 mg/dl (9-20); Creatinine Clearance Estimated 170 mL/min (50-200); Estimated Glomerular Filt Rate 85 ml/min (>60); GFR (African American) 102 ML/MIN (>60)
[2025-03-26 12:34] LABS: C-Reactive Protein 7.9 mg/L (0-4)
== END 2025-03-26 12:45 | disposition home or self-care (01) ==
LOC: INF 11:53
PROVIDERS: Visit Provider Physician Assistant
DX: R78.81 Bacteremia (principal); B95.61 Methicillin susceptible Staphylococcus aureus infection as the cause of diseases classified elsewhere
CPT/HCPCS: 36592; 82565; 84520; 85025; 86140; 96523

== ENCOUNTER 2025-04-02 08:42 | Outpatient (CLI) | payer OTHER, MEDICAID, SELFPAY ==
--- OUTSIDE RECORDS SUMMARY | 2025-02-25 02:42 | XMS_ITS | Encounter Summary ---
Author Organization Healthcare Address [address] [place] [address] Care Team Providers Care Baggage And Mail Agent Name Role Phone Pcp, No Primary Care Provider Unavailvidal e Francisco Javier Eller MD Unavailable [phone] Reason for Visit * Reason Comments Wound Check * Auth/Cert (Routine) Specialty Diagnoses / Procedures Referred By Contac t Referred To Contact Diagnoses Sternal wound dehiscence, initial encounter chest abscess at surgical scar near mediastinum with hx cabg 2021 at [facility] Sherlyn Daniel MD [address] [address] Phone: tel: fax: [facility] Emergency Department [address] [place] [address] Phone: tel: Referral ID Status Reason Start Date Expiration Date Visits Re quested Visits Authorized [id number] 1 1 Encounter Details Date Type Department Care Team (Latest Contact Info) Description 02/25/2025 2:42 AM EDT - 03/06/2025 1:35 PM EDT Hospital Encounter [facility] Inpatient [address] [place] [id number] Franco Guillory MD [address] [place] [address] Sherlyn Daniel MD [address] [address] Chest wall abscess (Primary Dx); Bacteremia due to Staphylococcus aureus Discharge Disposition: Home or Self Care Social History Tobacco Use Types Packs/Day Years Used Date Smoking Tobacco: Every Day Cigarettes 0.5 0.5 Smokeless Tobacco: Never Tobacco Cessation:Ready to Q uit: Not Asked; Counseling Given: Not Answered Alcohol Use Standard Drinks/Week Comments Never 0 (1 standard drink = 0.6 oz pur e alcohol) Humiliation, Afraid, Rape, and Kick questionnair e Answer Date Recorded Within the last year, have y ou been afraid of your partner or ex-partner? No 02/27/2025 Within the last year, have y ou been humiliated or emotionally abused in other ways by your partner or ex-partner? No Within the last year, have y ou been kicked, hit, slapped, or otherwise physically hurt by your partner or ex-partner? No 02/27/2025 Within the last year, have y ou been raped or forced to have any kind of sexual activity by your partner or ex-partner? No 02/27/2025 Hunger Vital Sign Answer Date Recorded Within the past 12 months, y ou worried that your food would run out before you got the money to buy more. Never true 02/28/20 25 Within the past 12 months, t he food you bought just didn't last and you didn't have money to get more. Never true 02/27/2025 PRAPARE - Transportation Answer Date Re corded In the past 12 months, has l ack of transportation kept you from medical appointments or from getting medications? No 02/02 In the past 12 months, has l ack of transportation kept you from meetings, work, or from getting things needed for daily living? No 02/27/2025 Housing Stability Vital Sign Answer Fausto e Recorded In the last 12 months, was t here a time when you were not able to pay the mortgage or rent on time? No 02/27/2025 Number of Times Moved in the Last Year Not on fi le 02/27/2025 At any time in the past 12 m [facility], were you homeless or living in a senior care (including now)? No 02/27/2025 Utilities Answer Date Recorded In the past 12 months has th e electric, gas, oil, or water company threatened to shut off services in your home? No 02/27/2025 Sex and Gender Information Value Date Recorded Sex Assigned at Not on file Legal Sex Male 12:02 AM EDT Gender Identity Not on file Sexual Orientation Not on file documented as of this encounter Last Filed Vital Signs Vital Sign Reading Time Taken Comments Blood Pressure 106/68 03/06/2025 7:30 AM EDT Pulse 87 03/06/2025 8:24 AM EDT Temperature 36.6 C (97.8 F) 03/06/2025 7:30 AM EDT Respiratory Rate 18 03/06/2025 7:30 AM EDT Oxygen Saturation 96% 03/06/2025 8:24 AM EDT Inhaled Oxygen Concentration - - Weight 116 kg (255 lb 8.2 oz) 03/06/2025 6:00 AM EDT Height 188 cm (6' 2.02 ) 03/02/2025 9:00 AM EDT Body Mass Index 32.79 03/02/2025 9:00 AM EDT documented in this encounter Functional Status * Calculated C-SSRS Risk Score (Lifetime/Recent) Answer Date of Assessment Author No Risk Indicated 03/06/2025 8:00 AM EDT Rhona Bhatt RN * Question Answer Date of Assessment Author 1. Wish to be (Past 1 Month) No 025 8:00 AM EDT Gallo Bhatt RN 2. Non-Specific Active Suici mony Thoughts (Past 1 Month) No 03/06/2025 8:00 AM EDT Gallo Bhatt RN 6. Suicidal Behavior (Lifetime) No 8:00 AM EDT Gallo Bhatt RN documented as of this encounter Medications at Time of Discharge acetaminophen (Tylenol) 500 MG tablet Take 2 tablets by mouth every 6 hours as needed for pain. Buprenorphine HCl-Naloxone HCl (Suboxone) 8-[address] 2 Film under the tongue daily. ceFAZolin (Ancef) injectionIndication s:Bacteremia due to Staphylococcus aureus Infuse 6 gm continuously every 24 hours. Mix per institutional policy. 1 each 5 04/10/20 25 HYDROcodone-acetami nophen ([place]) 5-325 MG tablet Take 1 tablet by mouth every 6 hours as needed for moderate pain or severe pain. 80 tablet 5 04/11/20 25 ibuprofen 200 MG tablet Take 2 tablets by mouth every 6 hours as needed for mild pain. lidocaine (Lidoderm) 5 % patch Apply 1 patch topically 1 (one) time each day at the same time over 12 hours. Remove & discard patch within 12 hours or as directed by MD. 20 patch 5 naloxone (Narcan) 4 mg/0.1 mL nasal spray 1. Give 1 spray in nostril for no/slow breathing or cannot wake after opioid use 2. Call 911 3. Repeat in other nostril if symptoms continue 1 each 5 oxyCODONE (Roxicodone) 5 MG immediate release tablet Take 2 tablets by mouth every 4 hours as needed for severe pain (For pain unrelieved by other interventions) for up to 3 days. 24 tablet 5 03/12/20 25 methocarbamol (Robaxin) 750 MG tablet Take 1 tablet by mouth 4 times a day. 30 tablet 5 03/14/20 25 documented as of this encounter Miscellaneous Notes * Discharge Summary - Malcolm Landrum PA - 03/06/2025 1:35 PM EDT Hospitalization Admit Date/Time: 02/25/2025 2:42 AM Admitting Attending: Sherlyn Daniel Discharge Date: 03-06-25 Discharge Attending Physician: Sherlyn Daniel MD PCP name and Address: Pcp, [address] [address] Referring provider name and address: Stephen Tello NP [address] [place] [address] [place], [place] Chief Concern, Brief History of Present Illness, and Hospital Course Alex Amaya is a 34 y.o. male with history of IV drug use on suboxone, infectious endocarditisrequiring tricuspid valve repair in [place] in 2019. He states that he had to have several incision and drainages of the superior aspect of his sternotomy scar that occurred in the medical facility at [facility] that [facility] in due to drainage with the last in 2021. He reports that the area has chronically healed and opened up multiple times, most recently about 3 months ago. He has been on antibiotics before for the drainage as well. On Wednesday the superior aspect of his scar started to have purulent drainage again. He reports associated fevers, chills, and swelling over his chest wall. This is the most significant drainage he's had in a few years. He sought attention at a local ER on Wednesday, but says he was discharged without much intervention. His symptoms persisted and got worse so he went to [facility] where he was found to have the chest abscess. He was transferred to for evaluation. He denies drug use in the past 7 years. He denies history of diabetes He was evaluated by the Infectious Disease Service. Cultures did not grow specific organisms prior to surgery, he was treated with vancomycin and Zosyn 4.5 g every 6 hours IV prior to surgery. He underwent a chest wall debridement with removal of sternal plates and wires with application of a wound VAC dressing placement. His postoperative course was unremarkable. He had a PICC line placedfor IV antibiotics. His wound VAC was changed prior to discharge. Surgeries and Procedures Procedures performed in this encounter Procedures Case Request Operating Room: CHEST WASHOUT, REMOVAL OF STERNAL PLATES CHEST WASHOUT, REMOVAL OF STERNAL PLATES (N/A) Medication List .. acetaminophen 500 MG tablet Commonly known as: Tylenol Take 2 tablets by mouth every 6 hours as needed for pain. Buprenorphine HCl-Naloxone HCl 8-2 MG SL film Commonly known as: Suboxone Place 2 Film under the tongue daily. ceFAZolin injection Commonly known as: Ancef Infuse 6 gm continuously every 24 hours. Mix per institutional policy. ibuprofen 200 MG tablet Take 2 tablets by mouth every 6 hours as needed for mild pain. lidocaine 5 % patch Commonly known as: Lidoderm Apply 1 patch topically 1 (one) time each day at the same time over 12 hours. Remove & discard patch within 12 hours or as directed by . methocarbamol 750 MG tablet Commonly known as: Robaxin Take 1 tablet by mouth 4 times a day. naloxone 4 mg/0.1 mL nasal spray Commonly known as: Narcan 1. Give 1 spray in nostril for no/slow breathing or cannot wake after opioid use 2. Call 911 3. Repeat in other nostril if symptoms continue oxyCODONE 5 MG immediate release tablet Commonly known as: Roxicodone Take 2 tablets by mouth every 4 hours as needed for severe pain (For pain unrelieved by other interventions) for up to 3 days. Where to Get Your Medications These medications were sent to [facility] - [place], [place] - [address], [facility] [address] ceFAZolin injection These medications were sent to [facility] - [place], [place] - 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 H/o Tricuspid Valve Repair in 2019 Sternal Wound Infection (POA) Osteomyelitis (POA) Sternomanubrial Junction Abscess (POA) Staph Aureus Bacteremia (POA) - h/o TV IE in 2019 for which he had TV leaflet repair and De Lucas procedure at [facility] ([place]) - OSH CT imaging uploaded and reviewed - 02/25: BCx (+) staph aureus - Underwent chest washout, wound debridement, removal of sternal plates, and wound vac placement on02/[address] Daniel (silver sponge so no WV change til Wednesday) - TTE shows LVEF 59%, mod dilated RV with nl RV fx. TV leaflets thickened. 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 There appears to be restricted motion/malcoaptation involving the septal leaflet. There is no tricuspid valve vegetation. There is severe tricuspid regurgitation. There is systolic flow reversal of the hepatic veins consistent with significant tricuspid valve regurgitation. - 02/26: Intra-op wound Cx (+) staph aureus - ID consulted, initially vanc and Zosyn, then changed to cefazolin on 02/28 per ID - final abx plan pending finalization of BCx - 03/04: BCx remain NGTD, picc placed - 03/05: wound vac changed at bedside OUD (POA) Post-Operative Pain - Continue home Suboxone - MMPC Obesity (POA) - BMI 33.47 - Complicates care Post Discharge Instructions - Continue cefazolin per ID - Continue wound vac - picc placed - will need to follow up with us in clinic and Wednesday for wound vac changes before beginning WV changes locally next Wednesday - plan to discharge patient with oxycodone for WV changes, continue home Suboxone Outpatient Follow-Up Future Appointments Date Time Provider Department Center 03/08/2025 2:00 PM Keny Tristan MD [facility] [place] 03/12/2025 9:40 AM Sherlyn Daniel MD [facility] [place] 03/26/2025 11:40 AM Sherlyn Daniel MD [facility] 03/27/2025 9:00 AM Keny Chin MD [facility] [place] 04/10/2025 9:00 AM Leela Chin MD [facility] [place] Follow-up: [facility] [place] [id number] Go on 04/26/2025 Your appointment time is 2:10pm Please arrive 15 minutes early and bring bottles of medication [facility] [address] [place] [address] Go on 03/12/2025 03/12/25 at 11:30 AM - Infusion Center for PICC and labs Wound Vac Changes MWF - same location, but in Physical Therapy Department - First Appointment 03/14/25 9:00 AM [facility] [address] [place] [address] Follow up for IV antibiotics and supplies Stephen Tello, SONYA [address] [place] [address] [facility] Test Results Pending At Discharge Pending Labs Order Current Status AFB Culture, Non Respiratory Source and Acid Fast Stain Preliminary result Blood Culture (Aerobic/Anaerobet Set) Preliminary result Blood Culture (Aerobic/Anaerobet Set) Preliminary result Fungal Culture, Tissue and DANY Preliminary result Prepare Leukocyte Reduced RBC: 4 Units Preliminary result Pertinent Physical Exam At Time of Discharge Physical Exam Constitutional: General: He is not in acute distress. Appearance: Normal appearance. He is well-developed. He is not ill-appearing. HENT: Head: Normocephalic and atraumatic. Eyes: General: No scleral icterus. Cardiovascular: Rate and Rhythm: Normal rate and regular rhythm. Pulmonary: Effort: Pulmonary effort is normal. Abdominal: General: Bowel sounds are normal. There is no distension. Tenderness: There is no abdominal tenderness. Musculoskeletal: General: Normal range of motion. Cervical back: Normal range of motion. Right lower leg: No edema. Left lower leg: No edema. Skin: General: Skin is warm. Neurological: General: No focal deficit present. Mental Status: He is alert and oriented to person, place, and time. Mental status is at baseline. Psychiatric: Mood and Affect: Mood normal. Behavior: Behavior normal. Discharge Disposition/Condition Disposition: Home Condition: Stable (s/sx potential problems absent or manageable) I spent >30 minutes of patient care and instruction time in preparation for this discharge. Cosigned by Sherlyn Daniel MD at 03/12/2025 10:24 AM EDT * Nursing Note - Barbara Martins - 03/06/2025 12:20 PM EDT Verbal/Written dc instructions reviewed with pt. Questions answered.Waiting for antibiotics. Bedside RN informed. * Progress Notes - Lise Christine RN - 03/06/2025 10:39 AM EDT Case Management Discharge Note Alex Amaya 34 y.o. male CSN: [id number] Admission: 02/25/2025 2:42 AM Primary Problem: Sternal wound dehiscence, initial encounter Primary Assembler Show Motor: Primary Caregiver: Self Assistance Available at Discharge: Availability of Care Givers (#Hours): 24 hours, No assistance needed Family/Assembler Show Motor(s) Willingness Assessed to care for patient at home: Yes Housing Circumstances-Z Codes: Housing Circumstances (select all that apply): None Applicable Patient Referred to Financial or Community Resources: n/a Discharge Facility/Level of Care Needs: Discharge Facility/Level of Care Needs: 1-Home or Self Care Patient's Choice of Community Agency(s): Patient/Family Anticipated Services at Transition: Patient/Family Anticipated Services at Transition: outpatient care DME/Equipment Needed after Discharge: Equipment Currently Used at Home: none Equipment Needed After Discharge: other (see comments) (IV antibiotics, wound vac) Readmission Within the Last 30 Days: Readmission Within the Last 30 Days: no previous admission in last 30 days Follow-up: Francisco Javier Eller MD [address] [id number] Go on 04/26/2025 Your appointment time is 2:10pm Please arrive 15 minutes early and bring bottles of medication [facility] [address] [place] [id number] Go on 03/12/2025 03/12/25 at 11:30 AM - Infusion Center for PICC and labs Wound Vac Changes MWF - same location, but in Physical Therapy Department - First Appointment 03/14/25 9:00 AM [facility] [address] [place] [address] Follow up for IV antibiotics and supplies Stephen Tello, [employer]ER [address] [place] [address] [facility] Discharge Transportation: Transportation Anticipated: family or friend will provide Transportation Home at Discharge: Family/Friend will Provide Follow Up Transport: Transportation Needed to Follow up Appoinments: Family/Friend will Provide Additional Comments: Patient medically ready for discharge. [facility] will deliver IV abx by 12:00 pm to bedside. Confirmed wound vac has been delivered to bedside. [facility] and then will go to [facility]. S/O will assist and transport. Lise Christine, SEBASTIAN * Care Plan - Gallo Bhatt RN - 03/06/2025 10:18 AM EDT Problem: Adult Inpatient Plan of Care Goal: Plan of Care Review Outcome: Ongoing, Progressing Flowsheets (Taken 03/06/2025 1018) Progress: improving Plan of Care Reviewed With: patient significant other Goal: Patient-Specific Goal (Individualized) Outcome: Ongoing, Progressing Flowsheets (Taken 03/06/2025 0800) Patient/Family-Specific Goals (Include Timeframe): patient will ambulate in hallways at least 2 times during day shift today. Individualized Care Needs: none Anxieties, Fears or Concerns: none Goal: Absence of Hospital-Acquired Illness or Injury Outcome: Ongoing, Progressing Goal: Optimal Comfort and Wellbeing Outcome: Ongoing, Progressing Goal: Readiness for Transition of Care Outcome: Ongoing, Progressing Problem: Wound Goal: Optimal Coping Outcome: Ongoing, Progressing Goal: Optimal Functional Ability Outcome: Ongoing, Progressing Goal: Absence of Infection Signs and Symptoms Outcome: Ongoing, Progressing Goal: Improved Oral Intake Outcome: Ongoing, Progressing Goal: Optimal Pain Control and Function Outcome: Ongoing, Progressing Goal: Skin Health and Integrity Outcome: Ongoing, Progressing Goal: Optimal Wound Healing Outcome: Ongoing, Progressing Problem: Surgical Site Infection Goal: Absence of Infection Signs and Symptoms Outcome: Ongoing, Progressing * Barbara Dorado - 03/06/2025 9:42 AM EDT Images from the original note were not included. 798 Narcan Nasal [place]: Rescue Guide for Opioid Overdose Step 1 Check for signs of overdose. Think someone had opioid overdose? Shout their name and ask Are you OK? Try shaking them by the shoulders or rubbing the middle of the chest. Signs of overdose are: ?? No response or does not wake up. ?? Breathing is slow, odd, or has stopped. ?? Center of the eye (pupil) is very small. If you see any of these signs, go to Step 2. Step 2 Give the medicine. 1. Lay the person flat on the back. 2. Get the Narcan nasal spray. Peel back the tab to remove the bottle. 3. Hold the bottle as shown. 4. Put your free hand behind the person?s neck. Gently lift to tilt the head back. 5. Place the nozzle inside one nostril until your fingers touch the nose. 6. Press the plunger with your thumb to spray. Then remove from the nostril. Step 3 Call 911 for help and watch the person. ?? Call 911 for emergency help. ?? Have the person lay on their side as shown. ?? Look for a response. The person may wake up, breathe normally, or respond to touch or voice. ?? If there is no response for 2-3 minutes after giving the spray, give another - if you have extraspray bottles. In that case, repeat Step 2 then move them back on to their side. ?? You can repeat this every 2-3 minutes until help arrives or the person responds. ?? Use this medicine only if you know or suspect the person has opioid overdose. ?? Do not open the Narcan package until you need to use it. ?? Only for use in the nose. * [facility] Barbara Martins - 03/06/2025 9:41 AM EDT Images from the original note were not included. [id number] Methocarbamol Brand Name(s): Robaxin??; also available generically ?? This branded product is no longer on the market. Generic alternatives may be available. WHY is this medicine prescribed? Methocarbamol is used with rest, physical therapy, and other measures to relax muscles and relieve pain and discomfort caused by strains, sprains, and other muscle injuries. Methocarbamol is in a class of medications called muscle relaxants. It works by slowing activity in the nervous system to allow the body to relax HOW should this medicine be used? Methocarbamol comes as a tablet to take by mouth. It usually is taken four times a day at first, then it may be changed to three to six times a day. Follow the directions on your prescription label carefully, and ask your doctor or pharmacist to explain any part you do not understand. Take methocarbamol exactly as directed. Do not take more or less of it or take it more often than prescribed by your doctor. Are there OTHER USES for this medicine? This medication may be prescribed for other uses. Ask your doctor or pharmacist for more information. What SPECIAL PRECAUTIONS should I follow? Before taking methocarbamol, ?? tell your doctor and pharmacist if you are allergic to methocarbamol, any other medications or any of the ingredients in methocarbamol tablets. Ask your doctor or pharmacist for a list of the ingredients. ?? tell your doctor and pharmacist what prescription and nonprescription medications, vitamins, nutritional supplements, and herbal products you are taking or plan to take while taking methocarbamol.Your doctor may need to change the doses of your medications or monitor you carefully for side effects. ?? tell your doctor if you are , plan to become , or are breast- feeding. If you become while taking methocarbamol, call your doctor. ?? talk to your doctor about the risks and benefits of taking methocarbamol if you are 65 years of age or older. Older adults should not usually take methocarbamol because it is not as safe or as effective as other medications that can be used to treat the same condition. ?? you should know that this medication may make you drowsy. Do not drive a car or operate machinery until you know how methocarbamol affects you. ?? talk to your doctor about the safe use of alcohol during your treatment with this medication. Alcohol can make the side effects of methocarbamol worse. What SPECIAL DIETARY instructions should I follow? Unless your doctor tells you otherwise, continue your normal diet. What should I do IF I FORGET to take a dose? Take the missed dose as soon as you remember it. However, if it is almost time for the next dose, skip the missed dose and continue your regular dosing schedule. Do not take a double dose to make up for a missed one. What SIDE EFFECTS can this medicine cause? If you experience either of the following symptoms, call your doctor immediately: ?? rash ?? itching Methocarbamol may cause other side effects. Call your doctor if you have any unusual problems whileyou are taking this medication. If you experience a serious side effect, you or your doctor may send a report to the Food and Drug Administration's (FDA) MedWatch Adverse Event Reporting program online (https://www.fda.gov/Safety/MedWatch) or by phone ( ). What should I know about STORAGE and DISPOSAL of this medication? Keep this medication in the container it came in, tightly closed, and out of reach of children. Store it at room temperature and away from excess heat and moisture (not in the bathroom). Unneeded medications should be disposed of in special ways to ensure that pets, children, and otherpeople cannot consume them. However, you should not flush this medication down the toilet. Instead,the best way to dispose of your medication is through a medicine take-back program. Talk to your pharmacist or contact your local garbage/recycling department to learn about take-back programs in your community. See the FDA's Safe Disposal of Medicines website (https://goo.gl/c4Rm4p) for more information if you do not have access to a take-back program. It is important to keep all medication out of sight and reach of children as many containers (such as weekly pill minders and those for eye drops, creams, patches, and inhalers) are not child-resistant and young children can open them easily. To protect young children from poisoning, always lock safety caps and immediately place the medication in a safe location - one that is up and away and out of their sight and reach. https://www.upandaway.org What should I do in case of OVERDOSE? In case of overdose, call the poison control helpline at . Information is also available online at https://www.poisonhelp.org/help. If the victim has collapsed, had a seizure, has trouble breathing, or can't be awakened, immediately call emergency services at [phone]. What OTHER INFORMATION should I know? Keep all appointments with your doctor. Do not let anyone else take your medication. Ask your pharmacist any questions you have about refilling your prescription. It is important for you to keep a written list of all of the prescription and nonprescription (qxas-qrl-jzorqpf) medicines you are taking, as well as any products such as vitamins, minerals, or otherdietary supplements. You should bring this list with you each time you visit a doctor or if you areadmitted to a hospital. It is also important information to carry with you in case of emergencies. This report on medications is for your information only, and is not considered individual patient advice. Because of the changing nature of drug information, please consult your physician or pharmacist about specific clinical use. [employer] [employer] represents that the information provided hereunder was formulated with a reasonable standard of care, and in conformity with professional standards in the field. [employer] [place] [employer] makes no representations or warranties, express or implied, including, but not limited to, any implied warranty of merchantability and/or fitness for a particular purpose, with respect to such information and specifically disclaims all such warranties. Users are advised that decisions regarding drug therapy are complex medical decisions requiring the independent, informed decision of an appropriate health care information associate, and the information is provided for informational purposes only. The entire monograph for a drug should be reviewed for a thorough understanding of the drug's actions, uses and side effects. [employer] [employer] does not endorse or recommend the use of any drug.The information is not a substitute for medical care. AHFS?? Patient Medication Information?. ?? Copyright, 2023. [employer] [employer]??, [address], [address], [place], [place]. All Rights Reserved. Duplication for commercial use must be authorized by [facility]. Selected Revisions: May 18, 2017. AHFS?? Patient Medication Information?. ?? Copyright, 2024 * Tyler Easley - Barbara Martins - 03/06/2025 9:41 AM EDT Images from the original note were not included. [id number] Lidocaine Transdermal Patch Brand Name(s): Absorbine Jr?? Plus, Aspercreme Patch??, Dermalid??, Lidocare??, Lidoderm??, Salonpas??, Ztlido??, Synera?? (containing lidocaine and tetracaine); also available generically ?? This branded product is no longer on the market. Generic alternatives may be available. WHY is this medicine prescribed? Prescription lidocaine transdermal (Dermalid, Lidoderm, Ztildo) is used to relieve the pain of post-herpetic neuralgia (PHN; burning, stabbing pains, or aches that may last for months or years after a shingles infection). Nonprescription (nlxk-pnc-uqmficz) lidocaine (Absorbine Jr, Aspercreme, Lidoca re, Salonpas, others) is also available to relieve minor pain in shoulders, arms, neck and legs in adults and children 12 years of age and older. Lidocaine is in a class of medications called local anesthetics. It works by stopping nerves from sending pain signals. HOW should this medicine be used? Prescription lidocaine transdermal comes as a 5% patch (Dermalid, Lidoderm) and as a 1.8% topical system (Ztlido) to apply to the skin. Prescription lidocaine transdermal is applied only once a day as needed for pain. Never apply more than 3 of the lidocaine 5% patch or lidocaine 1.8% topical systems at one time, and never wear them for more than 12 hours per day (12 hours on and 12 hours off). Follow the directions on your prescription label carefully, and ask your doctor or pharmacist to explain any part you do not understand. Use lidocaine transdermal exactly as directed. Do not apply it more or less often than prescribed by your doctor. Nonprescription lidocaine transdermal comes as a 4% patch (Absorbine Jr, Aspercreme, Lidocare, Salonpas, others) to apply to the skin. It is applied up to 3 times daily and for no more than 8 hours per application. Use nonprescription lidocaine patches exactly as directed. Do not use more or less of it or use it more often or for a longer period of time than directed by the package instructions. Your doctor will tell you how many lidocaine patches or topical systems you may use at one time andthe length of time you may wear the patches. Applying too many patches or topical systems or leaving them on for too long may cause serious side effects. Apply the lidocaine patch or topical system to clean, dry, intact skin as directed. Choose an area where the patch will not be rubbed by tight clothing. Do not apply the patch or topical system to anopen wound or cut, to skin that is irritated or red, or to skin that is affected by a rash, burn, or other skin problem. If irritation or a burning sensation occurs during lidocaine application, remove the lidocaine patch or system and do not reapply it until the irritation is gone. Prescription patches and topical systems may be cut into smaller sizes with scissors prior to removal of the release liner. Be sure to remove the current patch before you apply a new one. Do not let lidocaine transdermal come in contact with your eyes. If lidocaine transdermal does touch your eye, immediately wash the eye with water or saline and protect the eye until sensation returns. While you are wearing a lidocaine transdermal patch or system, protect the treated area from directheat such as heating pads or electric blankets. You can apply the lidocaine 1.8% topical system after moderate heat exposure, such as 15 minutes of heating pad exposure on a medium setting. Do not bandage the affected area tightly. Do not shower, bathe, or go swimming while you are wearing the prescription lidocaine 5% transdermal patch. If you are using the prescription lidocaine 1.8% topical system, you may shower for up to 10 minutes or wear it while immersed in water for up to 15 minutes. If the lidocaine 1.8% topical system becomes wet, gently pat the skin, but do not rub the skin or lidocaine 1.8% topical system. If the lidocaine 1.8% topical system comes off completely or lifts at the edges, reattach it by pressing firmly on the edges of the topical system or lifted areas. If the lidocaine 1.8% topical system comes off completely more than once and does not stick to the skin, remove it and apply a new lidocaine topical system not to exceed 12 hours of total use. Wash your hands after handling lidocaine patches or topical system. Stop using nonprescription lidocaine 4% patch and call your doctor if your pain lasts for longer than 7 days or if your pain improves and then worsens. Ask your pharmacist or doctor for a copy of the bariatric coordinator's information for the patient. Are there OTHER USES for this medicine? This medication may be prescribed for other uses; ask your doctor or pharmacist for more information. What SPECIAL PRECAUTIONS should I follow? Before using lidocaine transdermal, ?? tell your doctor and pharmacist if you are allergic to lidocaine; other medications such as benzocaine. bupivacaine (Marcaine), etidocaine (Duranest), mepivacaine (Carbocaine, Prolocaine), prilocaine (Citanest), procaine, tetracaine, any other medications, or any of the ingredients in lidocaine t ransdermal. Ask your pharmacist for a list of the ingredients. ?? tell your doctor and pharmacist what prescription and nonprescription medications, vitamins, nutritional supplements, and herbal products you are taking or plan to take while using lidocaine transdermal. Your doctor may need to change the doses of your medications or monitor you carefully for side effects.. ?? the following nonprescription product may interact with lidocaine transdermal: acetaminophen (Tylenol). Be sure to let your doctor and pharmacist know that you are taking these medications before you start using lidocaine transdermal. Do not start any of these medications while using lidocaine tr ansderaml without discussing with your healthcare provider. ?? tell your doctor if you have or have ever had gmjuvja-1-bfrsiupoo dehydrogenase (G-6PD) deficiency (an inherited blood disorder), methemoglobinemia (a condition with defective red blood cells thatare unable to carry oxygen to the tissues in the body), or heart, lung, or liver disease. ?? tell your doctor if you are , plan to become , or are breast- feeding. If you become while using lidocaine patches or topical systems, call your doctor. ?? if you are having surgery, including dental surgery, tell the doctor or dentist that you are using lidocaine patches or topical systems. What SPECIAL DIETARY instructions should I follow? Unless your doctor tells you otherwise, continue your normal diet. What should I do IF I FORGET to take a dose? This medication is usually used as needed. If your doctor has told you to use lidocaine patches or topical systems regularly, apply the missed patch or topical system as soon as you remember it. However, if it is almost time for the next dose, skip the missed patch and continue your regular dosing schedule. Do not apply a double dose to make up for a missed one. What SIDE EFFECTS can this medicine cause? Some side effects can be serious. The following symptoms are uncommon, but if you experience any ofthem, call your doctor immediately: ?? hives ?? rash ?? itching ?? blisters ?? bruising ?? difficulty breathing or swallowing ?? swelling of the face, throat, tongue, lips, eyes, hands, feet, ankles, or lower legs ?? hoarseness ?? fast pulse or breathing ?? unusual thirst ?? nausea ?? vomiting ?? confusion ?? weakness ?? dizziness ?? fainting ?? pale, guido, or blue colored skin; headache; shortness of breath; lightheadedness; or fatigue Lidocaine transdermal may cause other side effects. Call your doctor if you have any unusual problems while using this medication. If you experience a serious side effect, you or your doctor may send a report to the Food and Drug Administration's (FDA) MedWatch Adverse Event Reporting program online (https://www.fda.gov/Safety/MedWatch) or by phone ( ). What should I know about STORAGE and DISPOSAL of this medication? Keep this medication in the container it came in, tightly closed, and out of reach of children. Store it at room temperature and away from excess heat and moisture (not in the bathroom). Do not storepatches and topical systems outside the sealed envelope. Fold used patches or topical systems so that the adhesive side sticks to itself and then safely discard into trash and where children and petscannot get to them. It is important to keep all medication out of sight and reach of children as many containers (such as weekly pill minders and those for eye drops, creams, patches, and inhalers) are not child-resistant and young children can open them easily. To protect young children from poisoning, always lock safety caps and immediately place the medication in a safe location - one that is up and away and out of their sight and reach. https://www.upandaway.org Unneeded medications should be disposed of in special ways to ensure that pets, children, and otherpeople cannot consume them. However, you should not flush this medication down the toilet. Instead,the best way to dispose of your medication is through a medicine take-back program. Talk to your pharmacist or contact your local garbage/recycling department to learn about take-back programs in your community. See the FDA's Safe Disposal of Medicines website (https://goo.gl/c4Rm4p) for more information if you do not have access to a take-back program. What should I do in case of OVERDOSE? If you wear too many lidocaine transdermal patches or topical systems or wear them for too long, too much lidocaine may be absorbed into your blood. In that case, you may experience symptoms of an overdose. In case of overdose, call the poison control helpline at . Information is also available online at https://www.poisonhelp.org/help. If the victim has collapsed, had a seizure, has trouble breathing, or can't be awakened, immediately call emergency services at 911. Symptoms of overdose may include: ?? lightheadedness ?? nervousness ?? inappropriate happiness ?? confusion ?? dizziness ?? drowsiness ?? ringing in the ears ?? blurred or double vision ?? vomiting ?? feeling hot, cold, or numb ?? twitching or shaking that you cannot control ?? seizures ?? loss of consciousness ?? slow heartbeat What OTHER INFORMATION should I know? Keep all appointments with your doctor. Do not let anyone else use your medication. Ask your pharmacist any questions you have about refilling your prescription. It is important for you to keep a written list of all of the prescription and nonprescription (tmbo-chd-awxccfg) medicines you are taking, as well as any products such as vitamins, minerals, or otherdietary supplements. You should bring this list with you each time you visit a doctor or if you areadmitted to a hospital. It is also important information to carry with you in case of emergencies. This report on medications is for your information only, and is not considered individual patient advice. Because of the changing nature of drug information, please consult your physician or pharmacist about specific clinical use. [employer] [place] [employer] represents that the information provided hereunder was formulated with a reasonable standard of care, and in conformity with professional standards in the field. [employer] [employer] makes no representations or warranties, express or implied, including, but not limited to, any implied warranty of merchantability and/or fitness for a particular purpose, with respect to such information and specifically disclaims all such warranties. Users are advised that decisions regarding drug therapy are complex medical decisions requiring the independent, informed decision of an appropriate health care information associate, and the information is provided for informational purposes only. The entire monograph for a drug should be reviewed for a thorough understanding of the drug's actions, uses and side effects. [employer] [employer] does not endorse or recommend the use of any drug.The information is not a substitute for medical care. AHFS?? Patient Medication Information?. ?? Copyright, 2023. [employer]??, [address], [address], [place], [place]. All Rights Reserved. Duplication for commercial use must be authorized by [facility]. Selected Revisions: March 18, 2021. AHFS?? Patient Medication Information?. ?? Copyright2024 * Tyler Easley - Barbara Martins - 03/06/2025 9:41 AM EDT Images from the original note were not included. [id number] Cefazolin Injection Brand Name(s): Ancef?, Kefzol?; also available generically ?? This branded product is no longer on the market. Generic alternatives may be available. WHY is this medicine prescribed? Cefazolin injection is used to treat certain infections caused by bacteria including skin, bone, joint, genital, blood, heart valve, respiratory tract (including pneumonia), biliary tract, and urinary tract infections. Cefazolin injection also may be used before, during, and sometimes for a brief period after surgery in order to prevent the patient from getting an infection. Cefazolin injection is in a class of medications called cephalosporin antibiotics. It works by killing bacteria. Antibiotics such as cefazolin injection will not work for colds, flu, or other viral infections. Taking antibiotics when they are not needed increases your risk of getting an infection later that resists antibiotic treatment. HOW should this medicine be used? Cefazolin injection comes as a powder to be mixed with liquid, or as a premixed product, to be injected intravenously (into a vein) usually over a period of 30 minutes. Cefazolin injection can also be given intramuscularly (into a muscle). It is usually given every 6, 8, or 12 hours. The length of your treatment depends on the type of infection you have and how your body responds to the medication. You may receive cefazolin injection in a hospital or you may administer the medication at home. If you will be receiving cefazolin injection at home, your healthcare provider will show you how to usethe medication. Be sure that you understand these directions, and ask your healthcare provider if you have any questions. You should begin to feel better during the first few days of treatment with cefazolin injection. Ifyour symptoms do not improve or get worse, call your doctor. Use cefazolin injection until you finish the prescription, even if you feel better. If you stop using cefazolin injection too soon or skip doses, your infection may not be completely treated and the bacteria may become resistant to antibiotics. Are there OTHER USES for this medicine? Cefazolin injection is also sometimes used for certain penicillin allergic patients who have a heart condition and are having a dental or upper respiratory tract (nose, mouth, throat, voice box) procedure, in order to prevent them from developing a heart valve infection. Cefazolin injection is alsosometimes used to treat certain penicillin allergic women who are in labor in order to prevent the from developing an infection. This medication may be prescribed for other uses; ask your doctor or pharmacist for more information. What SPECIAL PRECAUTIONS should I follow? Before using cefazolin injection, ?? tell your doctor and pharmacist if you are allergic to cefazolin; carbapenem antibiotics; other cephalosporin antibiotics such as cefaclor, cefadroxil, cefdinir, cefepime (in Exblifep), cefixime (Suprax), cefotetan (Cefotan), cefoxitin, cefpodoxime, cefprozil, ceftaroline (Teflaro), ceftazidime (Tazicef, in Avycaz), ceftriaxone , cefuroxime , and cephalexin ; penicillin antibiotics; any other medications; or any of the ingredients in cefazolin injection. Ask your pharmacist for a list of theingredients. ?? tell your doctor and pharmacist what prescription and nonprescription medications, vitamins, nutritional supplements, and herbal products you are taking or plan to take. Your doctor may need to change the doses of your medications or monitor you carefully for side effects. ?? tell your doctor if you have or have ever had gastrointestinal disease (GI; affecting the stomach or intestines), especially colitis (condition that causes swelling in the lining of the colon [large intestine]), or kidney or liver disease. ?? tell your doctor if you are , plan to become , or are . If you become while using cefazolin injection, call your doctor. What SPECIAL DIETARY instructions should I follow? Unless your doctor tells you otherwise, continue your normal diet. What should I do IF I FORGET to take a dose? Use the missed dose as soon as you remember it. However, if it is almost time for the next dose, skip the missed dose and continue your regular dosing schedule. Do not use a double dose to make up for a missed one. What SIDE EFFECTS can this medicine cause? Some side effects can be serious. If you experience any of these symptoms, stop taking cefazolin injection and call your doctor immediately or get emergency medical treatment: ?? watery or bloody stools, stomach cramps or fever during treatment or for up to two or more months after stopping treatment ?? rash ?? hives ?? itching ?? difficulty breathing or swallowing ?? blistering, peeling, or shedding skin ?? swelling in legs and feet ?? decreased urination ?? dark urine ?? yellowing of skin or eyes ?? pain in the upper right part of stomach ?? fainting ?? a return of fever, sore throat, chills, or other signs of infection ?? seizures Cefazolin injection may cause other side effects. Call your doctor if you have any unusual problemswhile using this medication. If you experience a serious side effect, you or your doctor may send a report to the Food and Drug Administration's (FDA) MedWatch Adverse Event Reporting program online (https://www.fda.gov/Safety/MedWatch) or by phone ( ). What should I know about STORAGE and DISPOSAL of this medication? Your healthcare provider will tell you how to store your medication. Store your medication only as directed. Make sure you understand how to store your medication properly. Unneeded medications should be disposed of in special ways to ensure that pets, children, and otherpeople cannot consume them. However, you should not flush this medication down the toilet. Instead,the best way to dispose of your medication is through a medicine take-back program. Talk to your pharmacist or contact your local garbage/recycling department to learn about take-back programs in your community. See the FDA's Safe Disposal of Medicines website (https://goo.gl/c4Rm4p) for more information if you do not have access to a take-back program. What should I do in case of OVERDOSE? In case of overdose, call the poison control helpline at . Information is also available online at https://www.poisonhelp.org/help. If the victim has collapsed, had a seizure, has trouble breathing, or can't be awakened, immediately call emergency services at 911. Symptoms of overdose may include the following: ?? seizures What OTHER INFORMATION should I know? Keep all appointments with your doctor and the laboratory. Your doctor may order certain lab tests to check your body's response to cefazolin injection. Before having any laboratory test, tell your doctor and the laboratory personnel that you are taking cefazolin injection. If you are diabetic and test your urine for sugar, use Clinistix or TesTape (not Clinitest) to testyour urine while taking this medication. It is important for you to keep a written list of all of the prescription and nonprescription (gdgo-dod-qllries) medicines you are taking, as well as any products such as vitamins, minerals, or otherdietary supplements. You should bring this list with you each time you visit a doctor or if you areadmitted to a hospital. It is also important information to carry with you in case of emergencies. This report on medications is for your information only, and is not considered individual patient advice. Because of the changing nature of drug information, please consult your physician or pharmacist about specific clinical use. [employer] [employer] represents that the information provided hereunder was formulated with a reasonable standard of care, and in conformity with professional standards in the field. [employer] [employer] makes no representations or warranties, express or implied, including, but not limited to, any implied warranty of merchantability and/or fitness for a particular purpose, with respect to such information and specifically disclaims all such warranties. Users are advised that decisions regarding drug therapy are complex medical decisions requiring the independent, informed decision of an appropriate health care information associate, and the information is provided for informational purposes only. The entire monograph for a drug should be reviewed for a thorough understanding of the drug's actions, uses and side effects. [employer] [employer] does not endorse or recommend the use of any drug.The information is not a substitute for medical care. AHFS?? Patient Medication Information?. ?? Copyright, 2023. [employer] [place] [employer]??, [address], [address], [place], [place]. All Rights Reserved. Duplication for commercial use must be authorized by [facility]. Selected Revisions: March 23, 2024. AHFS?? Patient Medication Information?. ?? Copyright, 2024 * Progress Notes - Alejandro Sandoval PA - 03/05/2025 5:34 PM EDT CVT Progress Note 24 Hour Events/HPI: - resting quietly in bed - no CP or SOA, no major complaints on AM rounds - WV changed at bedside this morning - remains afebrile and hemodynamically stable - no acute overnight issues or events Review of Systems: A complete ROS was obtained. All were negative except as noted in HPI. Objective: All laboratory data, images, tracings, and vital sign data for past 24 hours are personally reviewed unless otherwise noted. @PATIENTWT@ , Weight: 113 kg (250 lb) , Ht Readings from Last 1 Encounters: 03/02/25 1.88 m (6' 2.02 ) , Body mass index is 32.51 kg/m??. VITALS (last 24h) Temp: [36.6 ??C (97.8 ??F)-37.3 ??C (99.1 ??F)] 36.7 ??C (98.1 ??F) Heart Rate: [77-98] 89 Resp: [13-23] 20 BP: (111-133)/(76-85) 128/85 Visit Vitals BP 128/85 (BP Location: Right arm, Patient Position: Lying) Pulse 89 Temp 36.7 ??C (98.1 ??F) (Oral) Resp 20 Ht 1.88 m (6' 2.02 ) Wt 115 kg (253 lb 4.9 oz) SpO2 93% BMI 32.51 kg/m?? Smoking Status Every Day BSA 2.45 m?? I & O Summary Intake/Output Summary (Last 24 hours) at 03/05/2025 1735 Last data filed at 03/05/2025 0900 Gross per 24 hour Intake 250 ml Output 525 ml Net -275 ml MEDICATIONS Buprenorphine HCl-Naloxone HCl, 8 mg, Sublingual, BID ceFAZolin, 2 g, Intravenous, q8h docusate sodium, 100 mg, Oral, BID heparin (porcine), 5,000 Units, Subcutaneous, q8h SAUL lidocaine, 1 patch, Apply externally, q24h methocarbamol, 750 mg, Oral, 4x daily mupirocin, 1 Application, Each Nostril, BID senna, 17.2 mg, Oral, Nightly sodium chloride, 10 mL, Intravenous, q12h sodium chloride, 10 mL, Intravenous, q12h PRN medications: [] acetaminophen FOLLOWED BY acetaminophen, calcium carbonate, ibuprofen, oxyCODONE, simethicone, [COMPLETED] Insert peripheral IV AND Saline lock IV AND sodium chloride AND sodium chloride, sodium chloride, sodium chloride No echocardiogram results found for the past 14 days Physical Exam: GENERAL: Well-developed, well-nourished. No apparent distress. EYES: No scleral icterus or conjunctivitis HENT: Atraumatic, normocephalic, nares patent, mucus membranes moist NECK: Supple, no JVD, no evidence of bruit bilaterally RESP/CHEST: CTA bilaterally. Normal work of breathing with symmetric expansion noted. + wound vac CARD: Regular rate and rhythm. Normal S1/S2. No murmur. No rub or gallop. Extremities: No lower extremity edema present. No cyanosis or clubbing. Pedal pulses palpable +2. GI: No organomegaly or masses. Soft, Nontender, nondistended. Bowel sounds present and normoactive x 4 quadrants SKIN: [place], warm, and dry. No rash, sores, or lesions. NEURO: AAOx4. Motor function intact and no focal deficits PSYCH: Mood and affect congruent and appropriate to situation. 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 H/o Tricuspid Valve Repair in 2019 Sternal Wound Infection (POA) Osteomyelitis (POA) Sternomanubrial Junction Abscess (POA) Staph Aureus Bacteremia (POA) - h/o TV IE in 2019 for which he had TV leaflet repair and De Lucas procedure at [facility] ([place]) - OSH CT imaging uploaded and reviewed - 02/25: BCx (+) staph aureus - Underwent chest washout, wound debridement, removal of sternal plates, and wound vac placement on02/[address] Daniel (silver sponge so no WV change til Wednesday) - TTE shows LVEF 59%, mod dilated RV with nl RV fx. TV leaflets thickened. 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 There appears to be restricted motion/malcoaptation involving the septal leaflet. There is no tricuspid valve vegetation. There is severe tricuspid regurgitation. There is systolic flow reversal of the hepatic veins consistent with significant tricuspid valve regurgitation. - 02/26: Intra-op wound Cx (+) staph aureus - ID consulted, initially vanc and Zosyn, then changed to cefazolin on 02/28 per ID - final abx plan pending finalization of BCx - 03/04: BCx remain NGTD, picc placed - 03/05: wound vac changed at bedside OUD (POA) Post-Operative Pain - Continue home Suboxone - MMPC Obesity (POA) - BMI 33.47 - Complicates care Plan: - Continue cefazolin per ID - Continue wound vac - picc placed - [facility] unable to deliver abx until 03/06, plan to discharge home in the morning - will need to follow up with us in clinic and Wednesday for wound vac changes before beginning WV changes locally next Wednesday - plan to discharge patient with oxycodone for WV changes, continue home Suboxone Cardiothoracic Surgery [phone] * Progress Notes - Lise Christine RN - 03/05/2025 3:07 PM EDT Case Management Discharge Note Alex Amaya 34 y.o. 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[employer]: Primary Caregiver: Self Assistance Available at Discharge: Availability of Care Givers (#Hours): 24 hours, No assistance needed Family/Assembler [employer] Motor(s) Willingness Assessed to care for patient at home: Yes Housing Circumstances-Z Codes: Housing Circumstances (select all that apply): None Applicable Patient Referred to Financial or Community Resources: n/a Discharge Facility/Level of Care Needs: Discharge Facility/Level of Care Needs: 1-Home or Self Care Patient's Choice of Community Agency(s): n/a Patient/Family Anticipated Services at Transition: Patient/Family Anticipated Services at Transition: outpatient care DME/Equipment Needed after Discharge: Equipment Currently Used at Home: none Equipment Needed After Discharge: other (see comments) (IV antibiotics, wound vac) Readmission Within the Last 30 Days: Readmission Within the Last 30 Days: no previous admission in last 30 days [facility]: [facility] [address] [facility] [address] Go on 04/26/2025 Your appointment time is 2:10pm Please arrive 15 minutes early and bring bottles of medication [facility] [address] [place] [id number] Go on 03/12/2025 03/12/25 at 11:30 AM - Infusion Center for PICC and labs Wound Vac Changes MWF - same location, but in Physical Therapy Department - First Appointment 03/14/25 9:00 AM [facility] [address] [place] [address] Follow up for IV antibiotics and supplies Discharge Transportation: Transportation Anticipated: family or friend will provide Transportation Home at Discharge: Family/Friend will Provide Follow Up Transport: Transportation Needed to Follow up Appoinments: Family/Friend will Provide Additional Comments: Per primary team patient is medically ready for discharge. [facility] - supplies will be delivered to bedside. Wound vac ordered through [facility] - will be delivered to bedside. Patient will follow up in Cardiovascular Clinic for first two wound vac changes, then will go to [facility] starting March 14. Patient also scheduled to go to [facility] [place] for PICC care and labs. Family will assist and transport. Update: [facility] unable to deliver IV abx today. He will be priority in the morning. Patient will discharge tomorrow. Lise Christine, RN * Care Plan - Gallo Bhatt RN - 03/05/2025 12:30 PM EDT Problem: Adult Inpatient Plan of Care Goal: Plan of Care Review Outcome: Ongoing, Progressing Flowsheets (Taken 03/05/2025 1230) Progress: improving Plan of Care Reviewed With: patient Goal: Patient-Specific Goal (Individualized) Outcome: Ongoing, Progressing Flowsheets (Taken 03/05/2025 0800) Patient/Family-Specific Goals (Include Timeframe): patient will have a decrease in overall pain by the end of day shift today. Individualized Care Needs: pain control Anxieties, Fears or Concerns: pain Goal: Absence of Hospital-Acquired Illness or Injury Outcome: Ongoing, Progressing Goal: Optimal Comfort and Wellbeing Outcome: Ongoing, Progressing Goal: Readiness for Transition of Care Outcome: Ongoing, Progressing Problem: Wound Goal: Optimal Coping Outcome: Ongoing, Progressing Goal: Optimal Functional Ability Outcome: Ongoing, Progressing Goal: Absence of Infection Signs and Symptoms Outcome: Ongoing, Progressing Goal: Improved Oral Intake Outcome: Ongoing, Progressing Goal: Optimal Pain Control and Function Outcome: Ongoing, Progressing Goal: Skin Health and Integrity Outcome: Ongoing, Progressing Goal: Optimal Wound Healing Outcome: Ongoing, Progressing Problem: Surgical Site Infection Goal: Absence of Infection Signs and Symptoms Outcome: Ongoing, Progressing * Care Plan - Marsha Miranda RN - 03/05/2025 12:44 AM EDT Problem: Adult Inpatient Plan of Care Goal: Plan of Care Review Outcome: Ongoing, Progressing Flowsheets (Taken 03/05/2025 0043) Progress: improving Plan of Care Reviewed With: patient Goal: Patient-Specific Goal (Individualized) Outcome: Ongoing, Progressing Flowsheets (Taken 03/04/20251999) Patient/Family-Specific Goals (Include Timeframe): pt will ambulate once in hallway during shift Individualized Care Needs: pain control Anxieties, Fears or Concerns: none verbalized Goal: Absence of Hospital-Acquired Illness or Injury Outcome: Ongoing, Progressing Goal: Optimal Comfort and Wellbeing Outcome: Ongoing, Progressing Goal: Readiness for Transition of Care Outcome: Ongoing, Progressing Problem: Wound Goal: Optimal Coping Outcome: Ongoing, Progressing Goal: Optimal Functional Ability Outcome: Ongoing, Progressing Goal: Absence of Infection Signs and Symptoms Outcome: Ongoing, Progressing Goal: Improved Oral Intake Outcome: Ongoing, Progressing Goal: Optimal Pain Control and Function Outcome: Ongoing, Progressing Goal: Skin Health and Integrity Outcome: Ongoing, Progressing Goal: Optimal Wound Healing Outcome: Ongoing, Progressing Problem: Surgical Site Infection Goal: Absence of Infection Signs and Symptoms Outcome: Ongoing, Progressing * Procedures - Maxwell Roper RN - 03/04/2025 4:49 PM EDTAssociated Order(s): Insert PICC line Insert PICC line Date/Time: 03/04/2025 4:49 PM Performed by: Maxwell Roper RN Authorized by: Sherlyn Daniel MD Nunda Protocol: Verbal consent obtained?: Yes Written consent obtained?: Yes Risks and benefits: Risks, benefits and alternatives were discussed Consent given by: Patient Patient states understanding of procedure being performed: Yes Patient's understanding of procedure matches consent: Yes Procedure consent matches procedure scheduled: Yes Relevant documents present and verified: Yes Test results available and properly labeled: Yes Site marked: Yes Imaging studies available: Yes Patient identity confirmed: Arm band and verbally with patient Time out: Immediately prior to the procedure a time out was called Indications: Vascular access Local anesthetic: Lidocaine 1% without epinephrine Sedation: Patient sedated: No Preparation: Skin prepped with 2% chlorhexidine Skin prep agent dried: Skin prep agent completely dried prior to procedure Sterile barriers: All five maximal sterile barriers used - gloves, gown, cap, mask and large sterile sheet Hand hygiene: Hand hygiene performed prior to catheter insertion Orientation: Left Location (Adult): Basilic vein Site selection rationale: Non dominant arm. Best vein Patient position: Flat Catheter Lot #: [id number] Catheter bariatric coordinator: [employer] Catheter placed: Single lumen Catheter size: 4 Fr Catheter trimmed length: 51 Catheter threaded length: 51 Vein placed in: SVC Catheter cm indwellin Catheter cm outside: 0 Placement confirmed by: Duong [employer]G technology Pre-procedure: Landmarks identified Ultrasound guidance: Yes Sterile ultrasound techniques: Sterile gel and sterile probe covers were used Number of attempts: 1 Post-procedure: Adhesive securement device and sterile access caps placed on each lumen Dressing applied: CHG tegaderm Assessment: Blood return through all ports and no pneumothorax on x-ray Patient tolerated the procedure well with no immediate complications.: Yes PICC kit educational material was given to the patient.: Yes Comments: All pertinent images were uploaded to PACS. * Progress Notes - Alejandro Sandoval PA - 03/04/2025 11:28 AM EDT CVT Progress Note 24 Hour Events/HPI: - resting quietly in bed - no CP or SOA, no major complaints on AM rounds - remains afebrile and hemodynamically stable - no acute overnight issues or events Review of Systems: A complete ROS was obtained. All were negative except as noted in HPI. Objective: All laboratory data, images, tracings, and vital sign data for past 24 hours are personally reviewed unless otherwise noted. @PATIENTWT@ , Weight: 113 kg (250 lb) , Ht Readings from Last 1 Encounters: 03/02/25 1.88 m (' 2.02 ) , Body mass index is 32.74 kg/m??. VITALS (last 24h) Temp: [36.7 ??C (98 ??F)-37.1 ??C (98.7 ??F)] 36.7 ??C (98 ??F) Heart Rate: [77-98] 77 Resp: [13-25] 14 BP: (119-145)/(74-84) 119/75 Visit Vitals BP 119/75 (BP Location: Right arm, Patient Position: Lying) Pulse 77 Temp 36.7 ??C (98 ??F) (Oral) Resp 14 Ht 1.88 m (6' 2.02 ) Wt 116 kg (255 lb 1.2 oz) SpO2 92% BMI 32.74 kg/m?? Smoking Status Every Day BSA 2.46 m?? I & O Summary Intake/Output Summary (Last 24 hours) at 03/04/2025 1128 Last data filed at 03/04/2025 0600 Gross per 24 hour Intake 720 ml Output 2000 ml Net -1280 ml MEDICATIONS Buprenorphine HCl-Naloxone HCl, 8 mg, Sublingual, BID ceFAZolin, 2 g, Intravenous, q8h docusate sodium, 100 mg, Oral, BID heparin (porcine), 5,000 Units, Subcutaneous, q8h SAUL lidocaine, 1 patch, Apply externally, q24h methocarbamol, 750 mg, Oral, 4x daily senna, 17.2 mg, Oral, Nightly sodium chloride, 10 mL, Intravenous, q12h PRN medications: [] acetaminophen FOLLOWED BY acetaminophen, calcium carbonate, ibuprofen, oxyCODONE, simethicone, [COMPLETED] Insert peripheral IV AND Saline lock IV AND sodium chloride AND sodium chloride No echocardiogram results found for the past 14 days Physical Exam: GENERAL: Well-developed, well-nourished. No apparent distress. EYES: No scleral icterus or conjunctivitis HENT: Atraumatic, normocephalic, nares patent, mucus membranes moist NECK: Supple, no JVD, no evidence of bruit bilaterally RESP/CHEST: CTA bilaterally. Normal work of breathing with symmetric expansion noted. + wound vac CARD: Regular rate and rhythm. Normal S1/S2. No murmur. No rub or gallop. Extremities: No lower extremity edema present. No cyanosis or clubbing. Pedal pulses palpable +2. GI: No organomegaly or masses. Soft, Nontender, nondistended. Bowel sounds present and normoactive x 4 quadrants SKIN: [place], warm, and dry. No rash, sores, or lesions. NEURO: AAOx4. Motor function intact and no focal deficits PSYCH: Mood and affect congruent and appropriate to situation. 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 H/o Tricuspid Valve Repair in 2019 Sternal Wound Infection (POA) Osteomyelitis (POA) Sternomanubrial Junction Abscess (POA) Staph Aureus Bacteremia (POA) - h/o TV IE in 2019 for which he had TV leaflet repair and De Lucas procedure at [facility]) - OSH CT imaging uploaded and reviewed - 02/25: BCx (+) staph aureus - Underwent chest washout, wound debridement, removal of sternal plates, and wound vac placement on02/[address] Daniel (silver sponge so no WV change til Wednesday) - TTE shows LVEF 59%, mod dilated RV with nl RV fx. TV leaflets thickened. 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 There appears to be restricted motion/malcoaptation involving the septal leaflet. There is no tricuspid valve vegetation. There is severe tricuspid regurgitation. There is systolic flow reversal of the hepatic veins consistent with significant tricuspid valve regurgitation. - 02/26: Intra-op wound Cx (+) staph aureus - ID consulted, initially vanc and Zosyn, then changed to cefazolin on 02/28 per ID - final abx plan pending finalization of BCx - 03/04: BCx remain NGTD, picc ordered OUD (POA) Post-Operative Pain - Continue home Suboxone - MMPC Obesity (POA) - BMI 33.47 - Complicates care Plan: - Continue cefazolin per ID - Continue wound vac - picc ordered Cardiothoracic Surgery [phone] * Care Plan - Yared Cartwright RN - 03/03/2025 7:55 PM EDT Problem: Adult Inpatient Plan of Care Goal: Plan of Care Review Outcome: Ongoing, Progressing Goal: Patient-Specific Goal (Individualized) Outcome: Ongoing, Progressing Goal: Absence of Hospital-Acquired Illness or Injury Outcome: Ongoing, Progressing Goal: Optimal Comfort and Wellbeing Outcome: Ongoing, Progressing Goal: Readiness for Transition of Care Outcome: Ongoing, Progressing Problem: Wound Goal: Optimal Coping Outcome: Ongoing, Progressing Goal: Optimal Functional Ability Outcome: Ongoing, Progressing Goal: Absence of Infection Signs and Symptoms Outcome: Ongoing, Progressing Goal: Improved Oral Intake Outcome: Ongoing, Progressing Goal: Optimal Pain Control and Function Outcome: Ongoing, Progressing Goal: Skin Health and Integrity Outcome: Ongoing, Progressing Goal: Optimal Wound Healing Outcome: Ongoing, Progressing Problem: Surgical Site Infection Goal: Absence of Infection Signs and Symptoms Outcome: Ongoing, Progressing * Progress Notes - Alejandro Sandoval PA - 03/03/2025 10:47 AM EDT CVT Progress Note 24 Hour Events/HPI: - resting quietly in bed - no CP or SOA, no major complaints on AM rounds - remains afebrile and hemodynamically stable - no acute overnight issues or events Review of Systems: A complete ROS was obtained. All were negative except as noted in HPI. Objective: All laboratory data, images, tracings, and vital sign data for past 24 hours are personally reviewed unless otherwise noted. @PATIENTWT@ , Weight: 113 kg (250 lb) , Ht Readings from Last 1 Encounters: 03/02/25 1.88 m (6' 2.02 ) , Body mass index is 32.99 kg/m??. VITALS (last 24h) Temp: [36.6 ??C (97.8 ??F)-36.8 ??C (98.2 ??F)] 36.6 ??C (97.8 ??F) Heart Rate: [78-83] 78 Resp: [19-22] 19 BP: (132)/(82) 132/82 Visit Vitals BP 132/82 (BP Location: Right arm, Patient Position: Lying) Pulse 78 Temp 36.6 ??C (97.8 ??F) (Oral) Resp 19 Ht 1.88 m (6' 2.02 ) Wt 117 kg (257 lb 0.9 oz) SpO2 91% BMI 32.99 kg/m?? Smoking Status Every Day BSA 2.47 m?? I & O Summary Intake/Output Summary (Last 24 hours) at 03/03/2025 1048 Last data filed at 03/03/2025 0400 Gross per 24 hour Intake 940 ml Output 3200 ml Net -2260 ml MEDICATIONS Buprenorphine HCl-Naloxone HCl, 8 mg, Sublingual, BID ceFAZolin, 2 g, Intravenous, q8h docusate sodium, 100 mg, Oral, BID heparin (porcine), 5,000 Units, Subcutaneous, q8h SAUL lidocaine, 1 patch, Apply externally, q24h methocarbamol, 750 mg, Oral, 4x daily senna, 17.2 mg, Oral, Nightly sodium chloride, 10 mL, Intravenous, q12h PRN medications: [] acetaminophen FOLLOWED BY acetaminophen, calcium carbonate, HYDROmorphone, ibuprofen, simethicone, [COMPLETED] Insert peripheral IV AND Saline lock IV AND sodium chloride AND sodium chloride No echocardiogram results found for the past 14 days Physical Exam: GENERAL: Well-developed, well-nourished. No apparent distress. EYES: No scleral icterus or conjunctivitis HENT: Atraumatic, normocephalic, nares patent, mucus membranes moist NECK: Supple, no JVD, no evidence of bruit bilaterally RESP/CHEST: CTA bilaterally. Normal work of breathing with symmetric expansion noted. + wound vac CARD: Regular rate and rhythm. Normal S1/S2. No murmur. No rub or gallop. Extremities: No lower extremity edema present. No cyanosis or clubbing. Pedal pulses palpable +2. GI: No organomegaly or masses. Soft, Nontender, nondistended. Bowel sounds present and normoactive x 4 quadrants SKIN: [place], warm, and dry. No rash, sores, or lesions. NEURO: AAOx4. Motor function intact and no focal deficits PSYCH: Mood and affect congruent and appropriate to situation. 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 H/o Tricuspid Valve Repair in 2019 Sternal Wound Infection (POA) Osteomyelitis (POA) Sternomanubrial Junction Abscess (POA) Staph Aureus Bacteremia (POA) - h/o TV IE in 2019 for which he had TV leaflet repair and De Lucas procedure at [facility] ([place]) - OSH CT imaging uploaded and reviewed - 02/25: BCx (+) staph aureus - Underwent chest washout, wound debridement, removal of sternal plates, and wound vac placement on02/[address] Daniel (silver sponge so no WV change til Wednesday) - TTE shows LVEF 59%, mod dilated RV with nl RV fx. TV leaflets thickened. 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 There appears to be restricted motion/malcoaptation involving the septal leaflet. There is no tricuspid valve vegetation. There is severe tricuspid regurgitation. There is systolic flow reversal of the hepatic veins consistent with significant tricuspid valve regurgitation. - 02/26: Intra-op wound Cx (+) staph aureus - ID consulted, initially vanc and Zosyn, then changed to cefazolin on 02/28 per ID - final abx plan pending finalization of BCx OUD (POA) Post-Operative Pain - Continue home Suboxone - MMPC Obesity (POA) - BMI 33.47 - Complicates care Plan: - Continue cefazolin per ID - Continue wound vac - Per ID, if BC from 02/27 & 03/01 remain negative, okay to order single lumen PICC. Cardiothoracic Surgery [phone] * Care Plan - Yared Cartwright RN - 03/02/2025 9:50 PM EDT Problem: Adult Inpatient Plan of Care Goal: Plan of Care Review Outcome: Ongoing, Progressing Goal: Patient-Specific Goal (Individualized) Outcome: Ongoing, Progressing Goal: Absence of Hospital-Acquired Illness or Injury Outcome: Ongoing, Progressing Goal: Optimal Comfort and Wellbeing Outcome: Ongoing, Progressing Goal: Readiness for Transition of Care Outcome: Ongoing, Progressing Problem: Wound Goal: Optimal Coping Outcome: Ongoing, Progressing Goal: Optimal Functional Ability Outcome: Ongoing, Progressing Goal: Absence of Infection Signs and Symptoms Outcome: Ongoing, Progressing Goal: Improved Oral Intake Outcome: Ongoing, Progressing Goal: Optimal Pain Control and Function Outcome: Ongoing, Progressing Goal: Skin Health and Integrity Outcome: Ongoing, Progressing Goal: Optimal Wound Healing Outcome: Ongoing, Progressing Problem: Surgical Site Infection Goal: Absence of Infection Signs and Symptoms Outcome: Ongoing, Progressing * Care Plan - Patricia Dubon RN - 03/02/2025 6:58 PM EDT Problem: Adult Inpatient Plan of Care Goal: Plan of Care Review Outcome: Ongoing, Progressing Flowsheets (Taken 03/02/2025 1858) Progress: improving Plan of Care Reviewed With: patient Goal: Patient-Specific Goal (Individualized) Outcome: Ongoing, Progressing Flowsheets (Taken 03/02/2025 0800) Patient/Family-Specific Goals (Include Timeframe): Pt will notify staff of any increasing pain Individualized Care Needs: Pain control Anxieties, Fears or Concerns: Concerns about work Goal: Absence of Hospital-Acquired Illness or Injury Outcome: Ongoing, Progressing Goal: Optimal Comfort and Wellbeing Outcome: Ongoing, Progressing Goal: Readiness for Transition of Care Outcome: Ongoing, Progressing Problem: Wound Goal: Optimal Coping Outcome: Ongoing, Progressing Goal: Optimal Functional Ability Outcome: Ongoing, Progressing Goal: Absence of Infection Signs and Symptoms Outcome: Ongoing, Progressing Goal: Improved Oral Intake Outcome: Ongoing, Progressing Goal: Optimal Pain Control and Function Outcome: Ongoing, Progressing Goal: Skin Health and Integrity Outcome: Ongoing, Progressing Goal: Optimal Wound Healing Outcome: Ongoing, Progressing Problem: Surgical Site Infection Goal: Absence of Infection Signs and Symptoms Outcome: Ongoing, Progressing * Progress Notes - Kelsie Carty APRN - 03/02/2025 2:00 PM EDT CVT Progress Note 24 Hour Events/HPI: Patient without complaints, pain is controlled. Per ID, if BC from 02/27 & 03/01 remain negative, okay to order single lumen PICC. Review of Systems: A complete ROS was obtained. All were negative except as noted in HPI. Objective: All laboratory data, images, tracings, and vital sign data for past 24 hours are personally reviewed unless otherwise noted. @PATIENTWT@ , Weight: 113 kg (250 lb) , Ht Readings from Last 1 Encounters: 03/02/25 1.88 m (6' 2.02 ) , Body mass index is 33.47 kg/m??. VITALS (last 24h) Temp: [36.4 ??C (97.6 ??F)-37 ??C (98.6 ??F)] 36.4 ??C (97.6 ??F) Heart Rate: [67-74] 70 Resp: [13-20] 13 BP: (123-135)/(79-83) 130/79 Visit Vitals BP 130/79 (BP Location: Right arm, Patient Position: Lying) Pulse 70 Temp 36.4 ??C (97.6 ??F) (Oral) Resp 13 Ht 1.88 m (6' 2.02 ) Wt 118 kg (260 lb 12.9 oz) SpO2 93% BMI 33.47 kg/m?? Smoking Status Every Day BSA 2.48 m?? I & O Summary Intake/Output Summary (Last 24 hours) at 03/02/2025 1400 Last data filed at 03/02/2025 0912 Gross per 24 hour Intake 820 ml Output 3600 ml Net -2780 ml MEDICATIONS acetaminophen, 1,000 mg, Oral, q6h SAUL Buprenorphine HCl-Naloxone HCl, 8 mg, Sublingual, BID ceFAZolin, 2 g, Intravenous, q8h docusate sodium, 100 mg, Oral, BID heparin (porcine), 5,000 Units, Subcutaneous, q8h SAUL lidocaine, 1 patch, Apply externally, q24h methocarbamol, 750 mg, Oral, 4x daily senna, 17.2 mg, Oral, Nightly sodium chloride, 10 mL, Intravenous, q12h PRN medications: acetaminophen FOLLOWED BY [START ON 03/03/2025] acetaminophen, calcium carbonate, HYDROmorphone, ibuprofen, simethicone, [COMPLETED] Insert peripheral IV AND Saline lock IV AND sodium chloride AND sodium chloride No echocardiogram results found for the past 14 days Physical Exam: GENERAL: WD, WN, NAD. EYES: No scleral icterus or conjunctivitis HENT: Atraumatic, normocephalic, nares patent, mucus membranes moist NECK: Supple, trachea midline RESP/CHEST: Symmetric expansion; non labored. CTA bilaterally CARD: Regular rate and rhythm, normal S1 and S2, no murmur, rub, or gallop, Pedal pulses palpable, no JVD. No edema. Wound vac at mid sternum. Extremities: No cyanosis or clubbing GI: Soft, Nontender, nondistended. BS present and normoactive x 4 quadrants SKIN: No rash NEURO: AAO. 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 H/o Tricuspid Valve Repair in 2019 Sternal Wound Infection (POA) Osteomyelitis (POA) Sternomanubrial Junction Abscess (POA) Staph Aureus Bacteremia (POA) - h/o TV IE in 2019 for which he had TV leaflet repair and De Lucas procedure at [facility] ([place] - OSH CT imaging uploaded and reviewed - 02/25: BCx (+) staph aureus - Underwent chest washout, wound debridement, removal of sternal plates, and wound vac placement on02/[address] Daniel (silver sponge so no [place] change til Wednesday) - TTE shows LVEF 59%, mod dilated RV with nl RV fx. TV leaflets thickened. 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 There appears to be restricted motion/malcoaptation involving the septal leaflet. There is no tricuspid valve vegetation. There is severe tricuspid regurgitation. There is systolic flow reversal of the hepatic veins consistent with significant tricuspid valve regurgitation. - 02/26: Intra-op wound Cx (+) staph aureus - ID consulted, initially vanc and Zosyn, than changed to cefazolin on 02/28 per ID - Planning for OPAT, per ID HOPEFULLY can treat his MSSA bacteremia with 2 weeks of IV abx and thentransition to high-dose PO abx to complete his 6 weeks of Induction therapy for sternal osteomyelitis. But may very well need 6 weeks of IV abx. - Per ID, okay to order single lumen PICC if BC from 02/27 & 03/01 remain negative OUD (POA) Post-Operative Pain - [facility] Obesity (POA) - BMI 33.47 - Complicates care Plan: - Continue cefazolin per ID - Continue wound vac - Per ID, if BC from 02/27 & 03/01 remain negative, okay to order single lumen PICC. Cardiothoracic Surgery [phone] * Significant Event - Keny Chin MD - 03/02/2025 12:45 PM EDT ########################################################################## ID OPAT INTAKE NOTE: Transitions of Care Summary OPAT Category: STANDARD Patient lives out of state: No Referring ID Physician (Fellow/Attending): Chhaya CHIN Diagnosis: Sternal osteomyelitis IV Access: Recommended Single Lumen PICC Antimicrobial Regimen: Antimicrobials (including doses): Recommend Cefazolin 6g/day IV continuous infusion therapy as Induction therapy x 6-8+ weeks (until 04/10/2025 at least)(may need a longer course of therapy based on clinical response.) Transition to oral therapy: TBD Future Imaging: No Lab Monitoring (weekly, preferably on Mondays unless otherwise specified): EVERY WEDNESDAY: CBCP/D, BUN, Creatinine (not BMP), CRP (regular quantitative CRP, not the high-sensitivity/cardiac CRP) Please fax lab results to Keny Chin MD at Appointments: Keny Chin MD on following dates: MID-POINT FOLLOWUP: 03/27/2024, 0930AM WEEK 6 FOLLOWUP: 04/10/2025, 0900AM at [address] [place] [address] (Select Option 3 for IV Antibiotic / PICC line related issues) All questions regarding outpatient parenteral antimicrobials after discharge should be directed to the OPAT nurse navigator at (Select Option 3 for IV Antibiotics/PICC Issues) between 8am-5pm. After 5 pm, or during weekends/[place] holidays, please call the paging concrete mixer operator at to reach the on-call ID fellow. PLEASE NOTIFY THE ID CONSULTING SERVICE OF ANY QUESTIONS REGARDING THESE RECOMMENDATIONS OR WITH ANY ANTIMICROBIAL CHANGES THAT OCCUR AFTER THE DATE/TIME OF THIS OPAT INTAKE NOTE. * Progress Notes - Keny Chin MD - 03/02/2025 12:00 PM EDT Infectious Disease Bone And Joint Consult Team - Followup, Attending Note S: ZIGGY. ROS: Positive as above. Otherwise, 14 systems reviewed and negative. MEDS: ABX: Cefazolin 02/28/2025 - current Vancomycin 02/25/2025 - 02/28/2025 Zosyn 02/25/2025 - 02/28/2025 OTHERS: For full list, see MAR. [Current Medications] [Current Medications] Current Facility-Administered Medications: acetaminophen (Tylenol) tablet 1,000 mg, 1,000 mg, Oral, q6h SAUL, 1,000 mg at 03/02/25 0923 FOLLOWED BY [START ON 03/03/2025] acetaminophen (Tylenol) tablet 650 mg, 650 mg, Oral, q4h PRN, Zacher, Kelsie A, BASKET PERSON Buprenorphine HCl-Naloxone HCl (Suboxone) 8-2 MG per SL film 8 mg, 8 mg, Sublingual, BID, Alejandro Sandoval PA, 8 mg at 03/02/25 0924 calcium carbonate (Tums) chewable tablet 500 mg, 500 mg, Oral, q6h PRN, Zacher, Kelsie A, BASKET PERSON ceFAZolin (Ancef) injection 2 g, 2 g, Intravenous, q8h, Zariley, Kelsie A, BASKET PERSON, 2 g at 03/02/2523 docusate sodium (Colace) capsule 100 mg, 100 mg, Oral, BID, Zacher, Kelsie A, BASKET PERSON, 100 mg at 03/02/25 0923 heparin (porcine) injection 5,000 Units, 5,000 Units, Subcutaneous, q8h [facility], Maxwell Ocasio MD, 5,000 Units at 03/02/25 0515 HYDROmorphone (Dilaudid) tablet 2 mg, 2 mg, Oral, q6h PRN, Zacher, Kelsie A, BASKET PERSON ibuprofen tablet 600 mg, 600 mg, Oral, q6h PRN, Zacher, Kelsie A, BASKET PERSON lidocaine (Lidoderm) 5 % patch 1 patch, 1 patch, Apply externally, q24h, Zariley, Kelsie A, BASKET PERSON, 1 patch at 03/01/252111 methocarbamol (Robaxin) tablet 750 mg, 750 mg, Oral, 4x daily, Kelsie Carty APRN, 750 mg at 03/02/25 0923 senna (Senokot) tablet 17.2 mg, 17.2 mg, Oral, Nightly, Kelsie Carty BASKET PERSON, 17.2 mg at 02/27/25 2139 simethicone (Mylicon) chewable tablet 80 mg, 80 mg, Oral, 4x daily PRN, Kelsie Carty APRN [COMPLETED] Insert peripheral IV, , , Once AND Saline lock IV, , , Once AND sodium chloride0.9 % flush 10 mL, 10 mL, Intravenous, q12h, 10 mL at 03/01/25 1540 AND sodium chloride 0.9 % flush 10 mL, 10 mL, Intravenous, PRN, Kelsie Carty, BASKET PERSON O: Visit Vitals BP 130/79 (BP Location: Right arm, Patient Position: Lying) Pulse 70 Temp 36.4 ??C (97.6 ??F) (Oral) Resp 13 Ht 1.88 m (6' 2.02 ) Wt 118 kg (260 lb 12.9 oz) SpO2 93% BMI 33.47 kg/m?? Smoking Status Every Day BSA 2.48 m?? GEN: NAD. HEENT: MMM. Neck: Supple. CHEST: VAC in place CARDIAC: RRR, no m/r/g RESPIRATORY: CTAB, no w/r/r ABD: Soft, NT, ND. +BS. Back: No gross deformity EXT: No c/c/e. Skin: WNL. No rashes. Neuro: Intact PSYCH: Appropriate. LINES: LABS: LABS REVIEWED CRP, Plasma Latest Ref Rng <=8.0 mg/L 02/25/2025 282.5 (H) Legend: (H) High Labs in last 18 hours CBC WBC ?? Hb ?? Plt ?? Hct ?? ANC ?? INR ??, PTT ??, Anti-Xa ?? BMP Na ?? Cl ?? BUN ?? Glu ?? K ?? Co2 ?? Cr ?? Ca ?? iCa ?? Mg ??, Phos ?? Lactate ?? LFT AST ?? AlkPhos ?? T Prot ?? ALK ?? Bili ?? Alb ?? D.Bili ?? MICRO: MICRO REVIEWED. FOR ALL STUDIES, SEE EHR 02/25/2025 HIV perri negative 02/25/2025 HCV perri POSITIVE; PCR negative <12 02/25/2025 BLD - S. aureus x2 bottles at 19hrs 02/25/2025 BLD - MSSA x1 bottle; CONS x 1 bottle at 16hrs Staphylococcus aureus GEENA KB Ampicillin Resistant * Cefoxitin 30 UG/ML Susceptible * Clindamycin <=0.5 ug/ml Susceptible * Daptomycin <=1 ug/ml Susceptible Erythromycin <=0.5 ug/ml Susceptible * Gentamicin <=1 ug/ml Susceptible * Levofloxacin <=1 ug/ml Susceptible * Linezolid <=1 ug/ml Susceptible Minocycline <=1 ug/ml Susceptible * Moxifloxacin <=0.5 ug/ml Susceptible * Oxacillin <=0.25 ug/ml Susceptible Penicillin G >1 ug/ml Resistant * Rifampin <=0.5 ug/ml Susceptible * Tetracycline <=0.5 ug/ml Susceptible * Trimethoprim/Sulfamethoxazole <=0.5/9.5 u... Susceptible * Vancomycin 1 ug/ml Susceptible 02/25/2025 Cutaneous skin (specify site); Swab (sternum) - GS - GPC. Cx - MSSA Staphylococcus aureus GEENA (Preliminary) KB (Preliminary) Ampicillin Resistant * Cefoxitin 30 UG/ML Susceptible * Clindamycin <=0.5 ug/ml Susceptible Daptomycin <=1 ug/ml Susceptible Erythromycin <=0.5 ug/ml Susceptible Gentamicin <=1 ug/ml Susceptible Levofloxacin <=1 ug/ml Susceptible * Linezolid 2 ug/ml Susceptible Minocycline <=1 ug/ml Susceptible Moxifloxacin <=0.5 ug/ml Susceptible * Oxacillin 0.5 ug/ml Susceptible Penicillin G >1 ug/ml Resistant Rifampin <=0.5 ug/ml Susceptible * Tetracycline <=0.5 ug/ml Susceptible Trimethoprim/Sulfamethoxazole <=0.5/9.5 u... Susceptible Vancomycin 1 ug/ml Susceptible 02/26/2025 Sternum; Swab sternal wound drainage culture (op cx) - GS - GPC. CX - S. aureus. Fungal -Stains negative; cx - NGTD 02/27/2025 BLD - NGTD 02/27/2025 BLD - NGTD 03/01/2025 BLD - NGTD 03/01/2025 BLD - NGTD STUDIES: STUDIES REVIEWED. FOR ALL STUDIES, SEE EHR 02/27/2025 TTE - Interpretation Summary Left Ventricle: The left ventricular systolic function is normal. The LVEF as measured by biplane volume is 59%. The diastolic function is abnormal. The left ventricular filling pressure is normal. No regional wall motion abnormalities are seen. Right Ventricle: The right ventricle is moderately dilated. The right ventricular systolic functionis normal. The estimated global right ventricular systolic function based upon the focused RV view fractional area change is normal (>/=35%). Unable to estimate the right ventricular systolic pressure (RVSP) due to severe tricuspid regurgitation. Tricuspid Valve: The leaflets appear thickened. 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 There appears to be restricted motion/malcoaptation involving the septal leaflet.. There is no tricuspid valve vegetation. There is severe tricuspid regurgitation. There is systolic flow reversal of the hepatic veins consistent with significant tricuspid valve regurgitation. Right Atrium: The right atrial volume index is normal (18-32mL/m2). Chiari network (normal variant)is noted. IVC/SVC: Based on the IVC size and respiratory variation, the estimated right atrial pressure is 15mmHg. There is no recent study available for direct [id number] comparison. 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 Ptalso with h/o TV IE in 2019 for which he had TV leaflet repair and De Lucas procedure at [facility] ([place] Pt was incarcerated at the time, and post-discharge developed chronic drainage from cephalad portion of sternal wound. [facility] Wound subsequentlyhas open and closed several times since 2021, including in December 2024. On/around 02/19/2025, wound again ruptured with large amount of purulent drainage, which pt described as largest amount of renata inashaneka in several years. Pt seen at [facility] 02/24/2025. 02/24/2025 CT showed 2.4x2.1x2.6cm abscess at sternomanubrial junction; inflammatory changes over sternum and manubrium extending posteriorly into anterior mediastinum. Pt transferred to and admitted 02/25/2025 - current. 02/25/2025 sternal wound swab cx growing MSSA. S/p 02/26/2025 I&D of sternum, removal of sternal plates x3 and wires x2; 5cm pocket of purulence noted near sternomanubrial junction; cx grew MSSA. 02/25/2025 BLD cx positive for MSSA x 3/4 bottles (and CONS from 1 bottle.) 02/27/2025 BLD - NGTD; 03/01/2025 BLD cx so far NGTD CARDIAC: H/o 2020 TV IE, s/p leaflet repair and De Lucas procedure at [facility] ([place] SUBSTANCE ABUSE: Illicit: H/o IVDA, polysubstance abuse. As of 02/27/2025, claims sobriety x years. Tobacco: Active smoker ETOH: Denies PSYCHOSOCIAL: H/o incarceration -- freed 04/03/2024. RENAL/URO: H/o post-infectious GN HEME: Anemia of chronic disease INFECTIOUS: HCV. 02/25/2025 PCR negative. H/o TV IE GI: H/o GIB. NEURO: Sz d/o H/o Appy H/o Dental DRUG ALLERGIES: NKDA RECOMMENDATIONS: Re: (chronic sternal wound infection; implant infection; osteomyelitis; bacteremia): Since this is S. aureus bacteremia, will need to repeat blood cultures q48h until we have 2 sets ofnegative blood cultures over 2 sequential days before we can declare bacteremia cleared. 02/27/2025 BLD cx NGTD. 03/01/2025 BLD cx so far NGTD but has only been 48hrs 02/27/2025 TTE without vegetations but severe TR. Prognosis guarded given the chronicity of the infection. However, removal of sternal wires and plates should greatly reduce risk of relapse Re: antibiotics: Would recommend High-Dose/Induction antibiotic therapy x 6-8+ weeks. Would then follow this with 3-6 months of Consolidation/Suppressive abx therapy. For now, while inpatient at [facility]: Continue Cefazolin 2g IV q8h as primary coverage for MSSA Re: High-Dose/Induction abx phase of therapy (i.e., long-term recommendations): For outpatient therapy, recommend Cefazolin 6g/day IV continuous infusion therapy as Induction therapy x 6-8+ weeks (until 04/10/2025 at least)(may need a longer course of therapy based on clinical response.) If 02/27/2025 and 03/01/2025 blood cultures still negative 03/03/2025, then would go ahead and place single-lumen PICC. Re: OPAT: Appears pt should be OK for STANDARD OPAT (i.e., IV abx therapy administered at home.) He does seemsincere about his sobriety, but will need to verify this friends/family. OPAT NN following. 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 But may very well need 6 weeks of IV abx. Please have Case Management verify PRIOR to discharge that there is payor source for abx and that patient has arrangements for Home Health. Re: Consolidation/Suppressive phase of abx therapy: Will determine need for/abx regimen at later date. While on High Dose/Induction abx therapy, will need regular blood work to monitor for adverse drug events, response to therapy, drug levels: EVERY WEDNESDAY: CBCP/D, BUN, Creatinine (not BMP), CRP (regular quantitative CRP, not the high-sensitivity/cardiac CRP) Please fax lab results to Keny Chin MD at F/u with: Keny Chin MD on following dates: MID-POINT FOLLOWUP: 03/27/2024, 0930AM WEEK 6 FOLLOWUP: 04/10/2025, 0900AM (Please come 10-15 minutes prior to your appointment in order to complete registration paperwork.) [facility] (Infectious Diseases Clinic) [address] [place] [id number] [employer]: . FAX: ID Bone and Joint Consult Service will sign off. (Please reconsult us if his 02/27/2025 or 03/01/2025 blood cultures turn positive. This will affect dates of therapy and when PICC can be placed.) The following complex inpatient infectious disease services were performed today: Complex antimicrobial therapy counseling and treatment * Tyler Kaushal - Donna Rosario, RN - 03/02/2025 10:43 AM EDT Images from the original note were not included. 1548 After Sternotomy: General Safety You need to protect your chest until it heals. Follow these rules 6-8 weeks after surgery, unless your doctor tells you otherwise. Basic safety steps: 1. When you move, keep your arms as close to your body as you can. 2. Do not push or pull with your arms. 3. Do not lift over 5-10 pounds. For example, a gallon of milk weighs about 10 pounds. 4. You can move your arms through your full range of motion. How to get out of bed Step 1: Lay flat with your arms crossed. Step 2: Roll to either side. Step 3: Kick your legs off the bed. Dig your elbow into the bed and use your stomach to start to sit. Step 4: Keep your arms across your chest as you move to sit. Step 5: Rest your arms on the bed next to your hips. OR rest your arms on your thighs. Step 6: Stand up. Do not use your hands! Do not do these moves when you get out of bed. Do not pull on a bed rail to sit up or lay down. Do not push up on the bed to stand with arms away from body. Do not pull on the bed rails to scoot. Do not do these when someone helps you get out of bed. Do not pull up with your arms to get out of bed. Do not pull up with the arms to get up or stand. How to open a door Correct Your arm should stay close to your body. Incorrect Do not move your arm away from your body to pull. How to walk with a cane Correct Keep your elbow close to your body. Incorrect Do not move your elbow away from your body. How to carry a bag Correct Keep your elbow close to your body. Incorrect Do not move your elbow away from your body. Correct Keep your elbow close to your body. Incorrect Do not move your elbow away from your body. How to use a wheelchair Correct Keep your elbows close to your body to propel the wheelchair. Incorrect Do not propel the wheelchair with your elbows away from your body. How to get in and out of a chair Correct Keep your elbows close to your body. Place your hands next to your thighs to push to stand. Incorrect Do not push up with your elbows away from your body. How to move from a chair to a walker Correct Option 1: Keep walker close. Place your hands on the seat next to your thighs. Keep your arms closeto your body as you push up. Option 2: Place your hands on your thighs. Keep your arms close to your body as you push up. Incorrect Do not pull up with one hand on the walker and push up with the other hand on the chair. Do not pull up or push up with your arms away from your body. How to get up from the toilet Correct Step 1: Place your hands on the seat close to your thighs. Step 2: Keep your arms close to your body as you push up. Step 3: Keep arms close to your body as you stand. Correct - with bedside commode Step 1: Place your hands on the seat close to your thighs. Step 2: Keep your arms close to your body as you push up. Step 3: Keep arms close to your body as you stand. Incorrect Do not push up with your arms away from your body. Do not push or pull with your arms away from your body. * [facility] Donna Rosario RN - 03/02/2025 10:43 AM EDT Images from the original note were not included. 61131 Understanding Wound Separation After Surgery (Wound Dehiscence) Wound dehiscence is when a surgical incision that has been stitched or stapled closed comes open again. This most often occurs with surgery done on the belly (abdomen). ?? Partial dehiscence is when only the outer (superficial) layers of tissue separate. ?? Complete dehiscence is when all layers of the wound tissue layers are . In this case, you may be able to see the underlying tissues and organs. Sometimes, organs can stick out of the opening. How to say it [id number] How wound dehiscence happens A wound can become when stress or tension overcomes the strength of the stitches or poonam used to close the incision. This may happen from coughing, lifting, strenuous exercise, or other movements or actions. It can also occur if the wound was not closed correctly. It can also happen towounds that don't heal correctly. This can occur in people who smoke or have certain chronic illnesses. Symptoms of wound dehiscence Symptoms of wound separation after surgery include: ?? Part or all of the wound is open ?? Poonam or stitches are broken ?? Pain ?? Feeling of pulling or ripping like something popped ?? Drainage or bleeding from the wound, most often a clear to pink fluid ?? Signs of wound infection such as fever, redness, swelling, bad-smelling discharge, or chills Treatment for wound dehiscence Treatment for wound dehiscence depends on how large the opening is, whether there is infection, howsoon the incision opened after the surgery, and whether you have other conditions that make it harder for the wound to heal. This might include diabetes, smoking, and poor nutrition. Treatment includes: ?? Pain medicine ?? Antibiotics to treat infection ?? Surgery to remove or infected tissue (surgical debridement) ?? Wet-to-dry dressing. For this treatment, the wound is filled with a wet or moist gauze. Then it?s covered with a dry dressing. This helps the wound heal from the bottom up. ?? Vacuum-assisted closure of the wound. A wound vac uses air pressure to help the wound heal more quickly by pulling fluid out of the wound and helping new tissue to grow. ?? Additional surgery. In some cases, the surgeon makes another attempt to close the wound. Your healthcare provider may refer you to specialists at a wound clinic for care. There you may seea wound care doctor or nurse who will help with bandaging, cleaning, and monitoring the wound. Possible complications of a dehisced wound Possible complications of wound dehiscence include: ?? Infection. Any open wound is at risk of becoming infected. ?? Wound evisceration. This is when internal organs stick out through the incision. This is a medical emergency. When to call your healthcare provider Call your healthcare provider if you have any of these: ?? Pain, redness, swelling, or bleeding that gets worse ?? Smelly fluid from the incision, or changes in color of the drainage from the incision ?? Fever of 100.4??F (38??C) or higher, or as advised by your healthcare provider ?? Shaking or chills ?? Vomiting or nausea that doesn't go away ?? Numbness, coldness, or tingling around the incision ?? Changes in skin color around the incision ?? Opening of the wound ?? Stitches that pull apart ?? Poonam that fall out Last Reviewed Date: 2024 00:00:00 ?? [id number] [employer]. All rights reserved. This information is not intended as a substitute for professional medical care. Always follow your healthcare professional's instructions. * Consults - Asia Neumann RD - 03/02/2025 9:48 AM EDT Adult Nutrition Evaluation Note Alex Amaya 34 y.o. male CSN: [id number] Room/Bed 119/119A Nutrition evaluation type: assessment Reason for evaluation: [facility] course: 34 yo male transferred to from [facility] [facility] for evaluation of chronic sternotomy wound with chest abscess. He states that he had to have several incision and drainages of the superior aspect of his sternotomy scar that occurred in [facility] due to drainage with the last in 2021. He reports that the area has chronically healed and opened up multipletimes, most recently about 3 months ago. Past medical/ surgical history: IVDU on suboxone, infectious endocarditis requiring tricuspid valverepair in [place] in 2019. Medical History[1] Surgical History[2] Social history: Social History[3] Additional comments: Pt seated in bed, RN present. Pt reports tahat his appetite is as good as normal att, no n/v/d/c, acknowledges bowel regimen. Pt denied chewing/swallowing difficulty. Pt reports UBW 250-260#, no involuntary changes. Pt agreeable to Jesús for wound healing support. Vitals and Basic Assessment: BP: 123/80 Temp: 36.5 ??C (97.7 ??F) Oxygen Therapy: None (Room air) O2 Delivery Method: Nasal cannula Chandana Coma Scale Score: 15 Jhony Scale Score: 21 Most Recent BM Date: 02/28/25 (per pt report, has had multiple BMs) Allergies: NKFA per pt Medications: acetaminophen, 1,000 mg, Oral, q6h SAUL FOLLOWED BY [START ON 03/03/2025] acetaminophen, 650 mg, Oral, q4h PRN Buprenorphine HCl-Naloxone HCl, 8 mg, Sublingual, BID ceFAZolin, 2 g, Intravenous, q8h docusate sodium, 100 mg, Oral, BID heparin (porcine), 5,000 Units, Subcutaneous, q8h SAUL lidocaine, 1 patch, Apply externally, q24h methocarbamol, 750 mg, Oral, 4x daily senna, 17.2 mg, Oral, Nightly [COMPLETED] Insert peripheral IV, , , Once AND Saline lock IV, , , Once AND sodium chloride, 10 mL, Intravenous, q12h AND sodium chloride, 10 mL, Intravenous, PRN Meds were reviewed: Yes Labs: Lab Results Component Value Date GLUCOSE 94 03/01/2025 CALCIUM 8.8 (L) 03/01/2025 NA 140 03/01/2025 K 4.4 03/01/2025 CO2 25 03/01/2025 CL 105 03/01/2025 BUN 14 03/01/2025 CREATININE 0.92 03/01/2025 PHOS 2.7 02/25/2025 MG 2.2 02/28/2025 HGBA1C 5.4 02/27/2025 HDL 28 (02/07/25) Anthropometrics: Height: 188 cm (6' 2.02 ) Weight: 118 kg (260 lb 12.9 oz) BMI (Calculated): 33.47 [place] Body Weight (kg): 86.4 Percent [place] Body Weight: 137 Adjusted Body Weight (kg): 94.4 Estimated Needs: Metabolic Cart Study Results: Current Nutrition Intake: Diet Supplements: None Diet Order: Adult Diet Diet Texture: Regular Percent Meals Eaten (%): 100% x 3 meals Diet Experience and Nutrition History: Diet Education Provided: Will monitor Pertinent home medications: Reviewed Yazdanism needs: Nutrition Focused Physical Exam: Physical exam performed on (date): 03/02/25 Temples (muscles): None Clavicle (muscle): None Shoulder (muscle): None Interosseous (muscle): None Thigh (muscle): None Calf (muscle): None Orbital (fat): None Triceps (fat): None Assessment of Malnutrition: Malnutrition Identified: No Nutrition Problem: Increased nutrient needs protein related to increased metabolic demand as evidenced by chronic wound with wound vac. Status of Nutrition Diagnosis: New Nutrition Interventions and Recommendations: -Regular diet -Jesús BID for wound healing support -Daily MVI -Record daily PO intake in flowsheet Nutrition Monitoring and Goals: -Support wound healing -Wt maintenance -PO intake >/= 75% most meals Acuity Level: [address], LD [1] Past Medical History: Diagnosis Date Endocarditis [2] Past Surgical History: Procedure Laterality Date STERNAL WIRES REMOVAL 02/26/2025 Chest wall debridement, removal sternal plates and wires, wound vac dressing placement (Dr. Sherlyn Daniel) [3] Social History Tobacco Use Smoking status: Every Day Current packs/day: 0.50 Average packs/day: 0.5 packs/day for 0.5 years (0.3 ttl pk-yrs) Types: Cigarettes Smokeless tobacco: Never Vaping Use Vaping status: Never Used Substance Use Topics Alcohol use: Never Drug use: Never * Care Plan - Yared Cartwright RN - 03/01/2025 10:50 PM EDT Problem: Adult Inpatient Plan of Care Goal: Plan of Care Review Outcome: Ongoing, Progressing Goal: Patient-Specific Goal (Individualized) Outcome: Ongoing, Progressing Goal: Absence of Hospital-Acquired Illness or Injury Outcome: Ongoing, Progressing Goal: Optimal Comfort and Wellbeing Outcome: Ongoing, Progressing Goal: Readiness for Transition of Care Outcome: Ongoing, Progressing Problem: Wound Goal: Optimal Coping Outcome: Ongoing, Progressing Goal: Optimal Functional Ability Outcome: Ongoing, Progressing Goal: Absence of Infection Signs and Symptoms Outcome: Ongoing, Progressing Goal: Improved Oral Intake Outcome: Ongoing, Progressing Goal: Optimal Pain Control and Function Outcome: Ongoing, Progressing Goal: Skin Health and Integrity Outcome: Ongoing, Progressing Goal: Optimal Wound Healing Outcome: Ongoing, Progressing Problem: Surgical Site Infection Goal: Absence of Infection Signs and Symptoms Outcome: Ongoing, Progressing * Care Plan - Nasra Jasmine RN - 03/01/2025 12:32 PM EDT Problem: Adult Inpatient Plan of Care Goal: Plan of Care Review Outcome: Ongoing, Progressing Goal: Patient-Specific Goal (Individualized) Outcome: Ongoing, Progressing Goal: Absence of Hospital-Acquired Illness or Injury Outcome: Ongoing, Progressing Goal: Optimal Comfort and Wellbeing Outcome: Ongoing, Progressing Goal: Readiness for Transition of Care Outcome: Ongoing, Progressing Problem: Wound Goal: Optimal Coping Outcome: Ongoing, Progressing Goal: Optimal Functional Ability Outcome: Ongoing, Progressing Goal: Absence of Infection Signs and Symptoms Outcome: Ongoing, Progressing Goal: Improved Oral Intake Outcome: Ongoing, Progressing Goal: Optimal Pain Control and Function Outcome: Ongoing, Progressing Goal: Skin Health and Integrity Outcome: Ongoing, Progressing Goal: Optimal Wound Healing Outcome: Ongoing, Progressing Problem: Surgical Site Infection Goal: Absence of Infection Signs and Symptoms Outcome: Ongoing, Progressing * Progress Notes - Kelsie Carty APRN - 03/01/2025 8:48 AM EDT CVT Progress Note 24 Hour Events/HPI: Patient without complaints, pain is controlled. Pt seen by OPAT team and is a candidate. Awaiting final Bcs. Review of Systems: A complete ROS was obtained. All were negative except as noted in HPI. Objective: All laboratory data, images, tracings, and vital sign data for past 24 hours are personally reviewed unless otherwise noted. @PATIENTWT@ , Weight: 113 kg (250 lb) , Ht Readings from Last 1 Encounters: 02/26/25 1.88 m (6' 2 ) , Body mass index is 33.88 kg/m??. VITALS (last 24h) Temp: [36.6 ??C (97.9 ??F)-36.8 ??C (98.2 ??F)] 36.8 ??C (98.2 ??F) Heart Rate: [66-70] 67 Resp: [15-20] 15 BP: (116-136)/(69-82) 116/69 Visit Vitals BP 116/69 (BP Location: Right arm, Patient Position: Lying) Pulse 67 Temp 36.8 ??C (98.2 ??F) (Oral) Resp 15 Ht 1.88 m (6' 2 ) Wt 120 kg (263 lb 14.3 oz) SpO2 93% BMI 33.88 kg/m?? Smoking Status Every Day BSA 2.5 m?? I & O Summary Intake/Output Summary (Last 24 hours) at 03/01/2025 0848 Last data filed at 03/01/2025 0400 Gross per 24 hour Intake 1036 ml Output 2050 ml Net -1014 ml LABS CBC WBC 7.81 Hb 12.8 (L) Plt 292 Hct 40.5 BMP Na 140 Cl 105 BUN 14 Glu 94 K 4.4 Co2 25 Cr 0.92 Ca 8.8 (L) Mg ?? MEDICATIONS acetaminophen, 1,000 mg, Oral, q6h SAUL Buprenorphine HCl-Naloxone HCl, 8 mg, Sublingual, BID ceFAZolin, 2 g, Intravenous, q8h docusate sodium, 100 mg, Oral, BID heparin (porcine), 5,000 Units, Subcutaneous, q8h SAUL lidocaine, 1 patch, Apply externally, q24h methocarbamol, 750 mg, Oral, 4x daily senna, 17.2 mg, Oral, Nightly sodium chloride, 10 mL, Intravenous, q12h PRN medications: acetaminophen FOLLOWED BY [START ON 03/03/2025] acetaminophen, calcium carbonate, HYDROmorphone, HYDROmorphone, ibuprofen, simethicone, [COMPLETED] Insert peripheral IV AND Saline lock IV AND sodium chloride AND sodium chloride No echocardiogram results found for the past 14 days Physical Exam: GENERAL: WD, WN, NAD. EYES: No scleral icterus or conjunctivitis HENT: Atraumatic, normocephalic, nares patent, mucus membranes moist NECK: Supple, trachea midline RESP/CHEST: Symmetric expansion; non labored. CTA bilaterally CARD: Regular rate and rhythm, normal S1 and S2, no murmur, rub, or gallop, Pedal pulses palpable, no JVD. No edema. Wound vac at mid sternum. Extremities: No cyanosis or clubbing GI: Soft, Nontender, nondistended. BS present and normoactive x 4 quadrants SKIN: No rash NEURO: AAO. 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 TV leaflets thickened. 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 There appears to be restricted motion/malcoaptation involving the septal leaflet. There is no tricuspid valve vegetation. There is severe tricuspid regurgitation. There is systolic flow reversal of the hepatic veins consistent with significant tricuspid valve regurgitation. OUD (POA) Post-Operative Pain - continue home Suboxone - [facility] Obesity (POA) - BMI 33.88 - complicates all aspects of care Plan: - Continue IV abx per ID - Continue wound vac - Will need PICC Cardiothoracic Surgery [phone] * Progress Notes - Estefania Salguero - 03/01/2025 8:08 AM EDT Case Management Adult Progress Note Alex Amaya 34 y.o. male CSN: [id number] Admission: 02/25/2025 2:42 AM Primary Problem: Sternal wound dehiscence, initial encounter Anticipated Discharge Date: TBD Has Discharge Plans Changed? No Housing Circumstances: Not Applicable Housing Circumstances Action Taken: Other N/A Additional Comments SW spoke with primary team this date re: pt's plan of care. According to primary team, this pt is not medically stable for DC this date and is not anticipated to be stable within 72 hrs. Per team, finalized abx plan pending blood cultures. No further SW concerns identified at this time. SW will monitor pt's progress and will follow up with DC planning and needs as appropriate. SACHA Benavides * Progress Notes - Barby Flores RN - 02/28/2025 2:33 PM EDT OPAT Enrollment Progress Note Patient: Alex Amaya : 1990 Referring ID Team: Bone and Joint Indications for Use: Osteoarticular Infection, non-prosthetic Evaluation Start Date: 02/28/25 Evaluation Status: Complete Enrollment Status: Standard OPAT Appropriate Standard Enrollment Plan: Home Infusion Number of IV Medications: 1 (1 antibiotic; 1 infusion) Delivery Method: Elastomeric Continuous OPAT Nurse Navigator Eligibility and Assessment Note(Standard OPAT) Patient has met all established OPAT criteria to safely and successfully administer IV antibiotics at home via a central venous access device. It is the opinion of the ID team that the patient can bedischarged home to complete their IV antibiotic course. Patient Name: Alex Amaya Primary ID Diagnosis: Osteoarticular Infection, non-prosthetic Referring ID Provider: Dr. Margi Chin IV Antimicrobial Therapy Plan: See OPAT MD intake note for final recommendations IV Access: pending Patient Specific Outpatient Circumstances: [address] [place] [id number] Family Support: Extended Emergency Contact Information Primary Emergency Contact: Mary Lemus Mobile Relation: Significant Other Preferred language: Nigerian Improvement Leader needed? No Contact information: Alex Amaya -[phone] Afua Lemus (pt's S.O. -will administer IV abx) - [phone] Outpatient services (including home infusion, home health, facility referral: See recent [facility] case management/social work note for finalization of services ID follow up appointment: No future appointments. Patient Assessment I spoke with patient and patient's s.o., Afua, at the bedside and completed an initial assessment with regards to OPAT eligibility. I explained the OPAT program and its service (IV antimicrobial management, lab monitoring, follow up appointments reminders, etc.) to the patient and Afua. Patient states pt's s.o., Afua can help with IV antimicrobial administration at home. I have reached out to the patients' recognized support, Afua, at the bedside and she confirmed she will be able to assist this patient in IV antimicrobial administration when the patient is discharged home. Transportation was also identified and confirmed with help of Afua. If no HH for weekly PICC care/labs;patient is requesting to go to [facility] close to home . After this discussion, the patient appeared to be a good candidate for the OPAT program. The patient/family are okay with Q24hr continuous ball. Patient was educated on, s/s of infection at the PICC line insertion site, how to keep the PICC line dressing dry while bathing, weight lifting limitations of 10 pounds or more, avoiding intense physical work and any repetitive motion within arm the PICC line was placed and how the PICC line dressing must be changed each week, weekly lab monitoring, and OPAT availability. Patient was given information about IV antimicrobials including possible administration options (continuous , IV push, number of infusions) and estimated duration of therapy. Patient and Afua verbalized understanding and provide teachback on assessment discussion stated above. Patient was provided the PICC agreement and signed prior to ending the discussion by the nurse navigator. Patient agreed for the OPAT team to leave messages on their cell phone. OPAT program packet including contacts were left with patient and Afua in the event they would have questions or concerns. The OPAT nurse navigator will continue to follow the patient peripherallyfor any changes in the discharge plan. Please direct questions to myself, another member of the OPAT team, or the ID consulting provider via secure chat or staff messaging in [employer]. This note is not the final recommendations from the infectious diseases team, please refer to the most recent note for this information. Patient and family will need to be educated by the infusion company before being discharged home. Barby STYLES, RN 02/28/2025 * Progress Notes - Keny Chin MD - 02/28/2025 12:27 PM EDT Infectious Disease Bone And Joint Consult Team - Followup, Attending Note S: ZIGGY. ROS: Positive as above. Otherwise, 14 systems reviewed and negative. MEDS: ABX: Cefazolin 02/28/2025 - current Vancomycin 02/25/2025 - 02/28/2025 Zosyn 02/25/2025 - 02/28/2025 OTHERS: For full list, see MAR. [Current Medications] [Current Medications] Current Facility-Administered Medications: acetaminophen (Tylenol) tablet 1,000 mg, 1,000 mg, Oral, q6h Amarjit HUGHES Jeffrey A, MD, 1,000 mgat 02/28/25 0909 Buprenorphine HCl-Naloxone HCl (Suboxone) 8-2 MG per SL film 8 mg, 8 mg, Sublingual, BID, Alejandro Sandoval PA, 8 mg at 02/28/25 0909 calcium carbonate (Tums) chewable tablet 500 mg, 500 mg, Oral, q6h PRN, August Cartya A, BASKET PERSON ceFAZolin (Ancef) injection 2 g, 2 g, Intravenous, q8h, Kelsie Carty BASKET PERSON, 2 g at 02/28/25 0908 docusate sodium (Colace) capsule 100 mg, 100 mg, Oral, BID, Kelsie Carty, BASKET PERSON, 100 mg at 02/27/25 2139 heparin (porcine) injection 5,000 Units, 5,000 Units, Subcutaneous, q8h Amarjit HUGHES Jeffrey A, MD, 5,000 Units at 02/28/25 0650 HYDROmorphone (Dilaudid) injection 0.5 mg, 0.5 mg, Intravenous, q2h PRN OR HYDROmorphone (Dilaudid) injection 1 mg, 1 mg, Intravenous, q2h PRN, Alejandro Sandoval PA HYDROmorphone (Dilaudid) tablet 2 mg, 2 mg, Oral, q4h PRN, Maxwell Ocasio MD HYDROmorphone (Dilaudid) tablet 4 mg, 4 mg, Oral, q4h PRN, Maxwell Ocasio MD, 4 mg at 02/28/25 1147 ibuprofen tablet 600 mg, 600 mg, Oral, q6h SAUL, Maxwell Ocasio MD, 600 mg at 02/28/25 1147 lidocaine (Lidoderm) 5 % patch 1 patch, 1 patch, Apply externally, q24h, Kelsie Carty APRN, 1 patch at 02/27/25 2139 methocarbamol (Robaxin) tablet 750 mg, 750 mg, Oral, 4x daily, Kelsie Carty APRN, 750 mg at 02/28/25 0909 senna (Senokot) tablet 17.2 mg, 17.2 mg, Oral, Nightly, Kelsie Caryt APRN, 17.2 mg at 02/27/25 213 simethicone (Mylicon) chewable tablet 80 mg, 80 mg, Oral, 4x daily PRN, Kelsie Carty APRN [COMPLETED] Insert peripheral IV, , , Once AND Saline lock IV, , , Once AND sodium chloride0.9 % flush 10 mL, 10 mL, Intravenous, q12h, 10 mL at 02/28/25 0345 AND sodium chloride 0.9 % flush 10 mL, 10 mL, Intravenous, PRN, Kelsie Carty BASKET PERSON O: Visit Vitals BP 134/77 (BP Location: Right arm, Patient Position: Lying) Pulse 67 Temp 36.6 ??C (97.9 ??F) (Oral) Resp 20 Ht 1.88 m (6' 2 ) Wt 122 kg (268 lb 4.8 oz) SpO2 97% BMI 34.45 kg/m?? Smoking Status Every Day BSA 2.52 m?? GEN: NAD. HEENT: MMM. Neck: Supple. CHEST: VAC in place CARDIAC: RRR, no m/r/g RESPIRATORY: CTAB, no w/r/r ABD: Soft, NT, ND. +BS. Back: No gross deformity EXT: No c/c/e. Skin: WNL. No rashes. Neuro: Intact PSYCH: Appropriate. LINES: LABS: LABS REVIEWED CRP, Plasma Latest Ref Rng <=8.0 mg/L 02/25/2025 282.5 (H) Legend: (H) High Labs in last 18 hours CBC WBC 7.50 Hb 13.1 (L) Plt 252 Hct 40.6 ANC ?? INR ??, PTT ??, Anti-Xa ?? BMP Na 136 Cl 104 BUN 18 Glu 110 (H) K 3.8 Co2 24 Cr 1.15 Ca 8.6 (L) iCa ?? Mg 2.2, Phos ?? Lactate ?? LFT AST ?? AlkPhos ?? T Prot ?? ALK ?? Bili ?? Alb ?? D.Bili ?? MICRO: MICRO REVIEWED. FOR ALL STUDIES, SEE EHR 02/25/2025 HIV perri negative 02/25/2025 HCV perri POSITIVE; PCR negative <12 02/25/2025 BLD - S. aureus x2 bottles at 19hrs 02/25/2025 BLD - MSSA x1 bottle; CONS x 1 bottle at 16hrs Staphylococcus aureus GEENA KB Ampicillin Resistant * Cefoxitin 30 UG/ML Susceptible * Clindamycin <=0.5 ug/ml Susceptible * Daptomycin <=1 ug/ml Susceptible Erythromycin <=0.5 ug/ml Susceptible * Gentamicin <=1 ug/ml Susceptible * Levofloxacin <=1 ug/ml Susceptible * Linezolid <=1 ug/ml Susceptible Minocycline <=1 ug/ml Susceptible * Moxifloxacin <=0.5 ug/ml Susceptible * Oxacillin <=0.25 ug/ml Susceptible Penicillin G >1 ug/ml Resistant * Rifampin <=0.5 ug/ml Susceptible * Tetracycline <=0.5 ug/ml Susceptible * Trimethoprim/Sulfamethoxazole <=0.5/9.5 u... Susceptible * Vancomycin 1 ug/ml Susceptible 02/25/2025 Cutaneous skin (specify site); Swab (sternum) - GS - GPC. Cx - MSSA Staphylococcus aureus GEENA (Preliminary) KB (Preliminary) Ampicillin Resistant * Cefoxitin 30 UG/ML Susceptible * Clindamycin <=0.5 ug/ml Susceptible Daptomycin <=1 ug/ml Susceptible Erythromycin <=0.5 ug/ml Susceptible Gentamicin <=1 ug/ml Susceptible Levofloxacin <=1 ug/ml Susceptible * Linezolid 2 ug/ml Susceptible Minocycline <=1 ug/ml Susceptible Moxifloxacin <=0.5 ug/ml Susceptible * Oxacillin 0.5 ug/ml Susceptible Penicillin G >1 ug/ml Resistant Rifampin <=0.5 ug/ml Susceptible * Tetracycline <=0.5 ug/ml Susceptible Trimethoprim/Sulfamethoxazole <=0.5/9.5 u... Susceptible Vancomycin 1 ug/ml Susceptible 02/26/2025 Sternum; Swab sternal wound drainage culture (op cx) - GS - GPC. CX - S. aureus. Fungal -Stains negative; cx - NGTD 02/27/2025 BLD - NGTD 02/27/2025 BLD - NGTD STUDIES: STUDIES REVIEWED. FOR ALL STUDIES, SEE EHR 02/27/2025 TTE - Interpretation Summary Left Ventricle: The left ventricular systolic function is normal. The LVEF as measured by biplane volume is 59%. The diastolic function is abnormal. The left ventricular filling pressure is normal. No regional wall motion abnormalities are seen. Right Ventricle: The right ventricle is moderately dilated. The right ventricular systolic functionis normal. The estimated global right ventricular systolic function based upon the focused RV view fractional area change is normal (>/=35%). Unable to estimate the right ventricular systolic pressure (RVSP) due to severe tricuspid regurgitation. Tricuspid Valve: The leaflets appear thickened. 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 There appears to be restricted motion/malcoaptation involving the septal leaflet.. There is no tricuspid valve vegetation. There is severe tricuspid regurgitation. There is systolic flow reversal of the hepatic veins consistent with significant tricuspid valve regurgitation. Right Atrium: The right atrial volume index is normal (18-32mL/m2). Chiari network (normal variant)is noted. IVC/SVC: Based on the IVC size and respiratory variation, the estimated right atrial pressure is 15mmHg. There is no recent study available for direct [id number] comparison. 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 Ptalso with h/o TV IE in 2019 for which he had TV leaflet repair and De Lucas procedure at [facility]). Pt was incarcerated at the time, and post-discharge developed chronic drainage from cephalad portion of sternal wound. Pt reportedly had I&Ds at [facility]. Wound subsequentlyhas open and closed several times since 2021, including in December 2024. On/around 02/19/2025, wound again ruptured with large amount of purulent drainage, which pt described as largest amount of renata inage in several years. Pt seen at [facility] 02/24/2025. 02/24/2025 CT showed 2.4x2.1x2.6cm abscess at sternomanubrial junction; inflammatory changes over sternum and manubrium extending posteriorly into anterior mediastinum. Pt transferred to and admitted 02/25/2025 - current. 02/25/2025 sternal wound swab cx growing MSSA. S/p 02/26/2025 I&D of sternum, removal of sternal plates x3 and wires x2; 5cm pocket of purulence noted near sternomanubrial junction; cx grew MSSA. 02/25/2025 BLD cx positive for S. aureus x 3/4 bottles (and CONS from 1 bottle.) 02/27/2025 BLD - NGTD. CARDIAC: H/o 2019 TV IE, s/p leaflet repair and De Lucas procedure at [facility] ([place]) SUBSTANCE ABUSE: Illicit: H/o IVDA, polysubstance abuse. As of 02/27/2025, claims sobriety x years. Tobacco: Active smoker ETOH: Denies PSYCHOSOCIAL: H/o incarceration -- freed 04/03/2024. RENAL/URO: H/o post-infectious GN HEME: Anemia of chronic disease INFECTIOUS: HCV. 02/25/2025 PCR negative. H/o TV IE GI: H/o GIB. NEURO: Sz d/o H/o Appy H/o Dental DRUG ALLERGIES: NKDA RECOMMENDATIONS: Re: (chronic sternal wound infection; implant infection; osteomyelitis; bacteremia): Since this is S. aureus bacteremia, will need to repeat blood cultures q48h until we have 2 sets ofnegative blood cultures over 2 sequential days before we can declare bacteremia cleared. (So far 02/27/2025 BLD cx NGTD. Still need 2nd repeat set -- please send 03/01/2025). 02/27/2025 TTE without vegetations but severe TR. Prognosis guarded given the chronicity of the infection. However, removal of sternal wires and plates should greatly reduce risk of relapse Re: antibiotics: Would recommend High-Dose/Induction antibiotic therapy x 6-8+ weeks. Would then follow this with 3-6 months of Consolidation/Suppressive abx therapy. For now, while inpatient at [facility]: Continue Cefazolin 2g IV q8h as primary coverage for MSSA Re: High-Dose/Induction abx phase of therapy (i.e., long-term recommendations): Patient will Induction therapy x 6-8+ weeks (may need a longer course of therapy based on clinical response.) Dates TBD. Final antibiotics recommendations to follow. Re: OPAT: Appears pt should be OK for STANDARD OPAT (i.e., IV abx therapy administered at home.) He does seemsincere about his sobriety, but will need to verify this friends/family. OPAT NN following. 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 But may very well need 6 weeks of IV abx. Please have Case Management verify PRIOR to discharge that there is payor source for abx and that patient has arrangements for Home Health. Re: Consolidation/Suppressive phase of abx therapy: Will determine need for/abx regimen at later date. While on High Dose/Induction abx therapy, will need regular blood work to monitor for adverse drug events, response to therapy, drug levels: EVERY WEDNESDAY: CBCP/D, BUN, Creatinine (not BMP), CRP (regular quantitative CRP, not the high-sensitivity/cardiac CRP) EVERY WEDNESDAY: Vancomycin trough if patient is on vancomycin IV. EVERY WEDNESDAY: LFTs, CK if patient is on Daptomycin IV. ID Bone and Joint Consult Service will follow while inhouse. (If patient does leave AMA, then they will need to find another ID specialist to manage their care.) The following complex inpatient infectious disease services were performed today: Complex antimicrobial therapy counseling and treatment * Progress Notes - Kelsie CartyJAE - 02/28/2025 11:30 AM EDT CVT Progress Note 24 Hour Events/HPI: Patient without complaints, pain is controlled. ID recommends High-Dose/Induction antibiotic therapy x 6-8+ weeks. Would then follow this with 3-6 months of Consolidation/Suppressive abx therapy. 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 But may very well need 6 weeks of IV abx. Review of Systems: A complete ROS was obtained. All were negative except as noted in HPI. Objective: All laboratory data, images, tracings, and vital sign data for past 24 hours are personally reviewed unless otherwise noted. @PATIENTWT@ , Weight: 113 kg (250 lb) , Ht Readings from Last 1 Encounters: 02/26/25 1.88 m (6' 2 ) , Body mass index is 34.45 kg/m??. VITALS (last 24h) Temp: [36.3 ??C (97.3 ??F)-36.8 ??C (98.2 ??F)] 36.3 ??C (97.3 ??F) Heart Rate: [67-101] 101 Resp: [15-26] 16 BP: (102-146)/(66-88) 102/71 Visit Vitals BP 102/71 Pulse 101 Temp 36.3 ??C (97.3 ??F) Resp 16 Ht 1.88 m (6' 2 ) Wt 122 kg (268 lb 4.8 oz) SpO2 96% BMI 34.45 kg/m?? Smoking Status Every Day BSA 2.52 m?? I & O Summary Intake/Output Summary (Last 24 hours) at 02/28/2025 1130 Last data filed at 02/28/2025 0600 Gross per 24 hour Intake 1712 ml Output 550 ml Net 1162 ml LABS CBC WBC 7.50 Hb 13.1 (L) Plt 252 Hct 40.6 BMP Na 136 Cl 104 BUN 18 Glu 110 (H) K 3.8 Co2 24 Cr 1.15 Ca 8.6 (L) Mg 2.2 MEDICATIONS acetaminophen, 1,000 mg, Oral, q6h SAUL Buprenorphine HCl-Naloxone HCl, 8 mg, Sublingual, BID ceFAZolin, 2 g, Intravenous, q8h docusate sodium, 100 mg, Oral, BID heparin (porcine), 5,000 Units, Subcutaneous, q8h SAUL ibuprofen, 600 mg, Oral, q6h SAUL lidocaine, 1 patch, Apply externally, q24h methocarbamol, 750 mg, Oral, 4x daily senna, 17.2 mg, Oral, Nightly sodium chloride, 10 mL, Intravenous, q12h PRN medications: calcium carbonate, HYDROmorphone OR HYDROmorphone, HYDROmorphone, HYDROmorphone, simethicone, [COMPLETED] Insert peripheral IV AND Saline lock IV AND sodium chloride AND sodium chloride No echocardiogram results found for the past 14 days Physical Exam: GENERAL: WD, WN, NAD. EYES: No scleral icterus or conjunctivitis HENT: Atraumatic, normocephalic, nares patent, mucus membranes moist NECK: Supple, trachea midline RESP/CHEST: Symmetric expansion; non labored. CTA bilaterally CARD: Regular rate and rhythm, normal S1 and S2, no murmur, rub, or gallop, Pedal pulses palpable, no JVD. No edema. Wound vac at mid sternum. Extremities: No cyanosis or clubbing GI: Soft, Nontender, nondistended. BS present and normoactive x 4 quadrants SKIN: No rash NEURO: AAO. 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 TV leaflets thickened. 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 There appears to be restricted motion/malcoaptation involving the septal leaflet. There is no tricuspid valve vegetation. There is severe tricuspid regurgitation. There is systolic flow reversal of the hepatic veins consistent with significant tricuspid valve regurgitation. OUD (POA) Post-Operative Pain - [facility] Obesity (POA) - BMI 33.88 - complicates all aspects of care Plan: - continue IV abx per ID - continue wound vac Cardiothoracic Surgery [id number] * Care Plan - Nasra Jasmine RN - 02/28/2025 10:16 AM EDT Problem: Adult Inpatient Plan of Care Goal: Plan of Care Review Outcome: Ongoing, Progressing Goal: Patient-Specific Goal (Individualized) Outcome: Ongoing, Progressing Goal: Absence of Hospital-Acquired Illness or Injury Outcome: Ongoing, Progressing Goal: Optimal Comfort and Wellbeing Outcome: Ongoing, Progressing Goal: Readiness for Transition of Care Outcome: Ongoing, Progressing Problem: Wound Goal: Optimal Coping Outcome: Ongoing, Progressing Goal: Optimal Functional Ability Outcome: Ongoing, Progressing Goal: Absence of Infection Signs and Symptoms Outcome: Ongoing, Progressing Goal: Improved Oral Intake Outcome: Ongoing, Progressing Goal: Optimal Pain Control and Function Outcome: Ongoing, Progressing Goal: Skin Health and Integrity Outcome: Ongoing, Progressing Goal: Optimal Wound Healing Outcome: Ongoing, Progressing Problem: Surgical Site Infection Goal: Absence of Infection Signs and Symptoms Outcome: Ongoing, Progressing * Progress Notes - Mayelin Caruso PharmD - 02/28/2025 8:08 AM EDT Vancomycin therapy has been stopped due to patient-specific cultures. Vancomycin therapy is no longer indicated. Patient transitioned to cefazolin per ID recommendations for MSSA growing from blood & wound cultures. Pharmacist will sign off from dosing and monitoring vancomycin. Please re-order a pharmacist to dose consult or discuss with your team pharmacist if re- initiation of vancomycin therapy is needed in the future. Mayelin Caruso PharmD, [facility] Clinical Pharmacist - Cardiology Contact via secure chat * Procedures - Maxwell Roper RN - 02/27/2025 6:13 PM EDTAssociated Order(s): Insert peripheral IV Insert peripheral IV Performed by: Maxwell Roper RN Authorized by: Sherlyn Daniel MD Hand hygiene: Hand hygiene performed prior to insertion Inserted using aseptic techniques: Yes Preparation: Skin prepped with chg Orientation: Left, anterior and lower Location: Forearm Catheter placed: Peripheral IV Catheter size: 20g/2.00in Line Technique: Ultrasound Guidance Number of attempts: 1 IV flushes: Without difficulty and positive blood return noted and IV luer locked Patient tolerance: Patient tolerated the procedure well and there were no complications Patient comfort measures used: Distraction and position of comfort IV site covered with: Transparent semipermeable dressing * Progress Notes - Ayan Elizalde PharmD - 02/27/2025 2:47 PM EDT Specialty Pharmacy HCV Protocol Exclusion ED - Danilo Exclusions from Treatment Protocol: [] Patient has life threatening emergent condition or injury in the ED [] Current or previous history of decompensated cirrhosis including, but not limited to: ascites, hepatic encephalopathy, upper GI bleed, hepatic decompensation, or history of liver cancer/hepatocellular carcinoma (HCC) [x] HCV Ab (-)/RNA nondetected [] HIV Positive or indeterminate result [] Hepatitis B sAg positive [] Previous HCV Direct Acting Antiviral (DAA) treatment [] Possible [] [] Patient followed by Hospice [] Patient followed by Transplant [] Life expectancy <1 year [] Other Documented Previous HCVAb+? No Previous HCVAb+ Date: // Documented Previous HCVRNA+? No Previous HCVRNA+ Date: // Current HCVAb+? Yes Current HCVAb+ Date: 02/25/2025 Initial HCV treatment work up was unable to be performed If unable to perform, please select reason: Other HCV RNA resulted from 02/25/25 as not detected. At this time, the patient is not in further need of HCV workup. Branden Elizalde, Pharm D. [facility] via secure chat with questions * Progress Notes - Keny Chin MD - 02/27/2025 1:25 PM EDT Infectious Disease Bone And Joint Consult Team - Followup, Attending Note S: ZIGGY. ROS: Positive as above. Otherwise, 14 systems reviewed and negative. MEDS: ABX: Vancomycin 02/25/2025 - current Zosyn 02/25/2025 - current OTHERS: For full list, see MAR. [Current Medications] [Current Medications] Current Facility-Administered Medications: acetaminophen (Tylenol) tablet 1,000 mg, 1,000 mg, Oral, q6h Amarjit HUGHES Jeffrey A, MD, 1,000 mgat 02/27/25 0945 Buprenorphine HCl-Naloxone HCl (Suboxone) 8-2 MG per SL film 8 mg, 8 mg, Sublingual, BID, Alejandro Sandoval PA, 8 mg at 02/27/25 0945 calcium carbonate (Tums) chewable tablet 500 mg, 500 mg, Oral, q6h PRN, Cassidy Baptiste MD docusate sodium (Colace) capsule 100 mg, 100 mg, Oral, BID, Cassidy Baptiste MD, 100 mg at 02/27/25 0945 heparin (porcine) injection 5,000 Units, 5,000 Units, Subcutaneous, q8h [facility] Jeffrey A, MD, 5,000 Units at 02/27/25 0644 HYDROmorphone (Dilaudid) injection 0.5 mg, 0.5 mg, Intravenous, q2h PRN OR HYDROmorphone (Dilaudid) injection 1 mg, 1 mg, Intravenous, q2h PRN, Alejandro Sandoval PA HYDROmorphone (Dilaudid) tablet 2 mg, 2 mg, Oral, q4h PRN, Maxwell Ocasio MD HYDROmorphone (Dilaudid) tablet 4 mg, 4 mg, Oral, q4h PRN, Maxwell Ocasio MD, 4 mg at 02/27/25 1145 ibuprofen tablet 600 mg, 600 mg, Oral, q6h SAUL, Maxwell Ocasio MD, 600 mg at 02/27/25 1145 lidocaine (Lidoderm) 5 % patch 1 patch, 1 patch, Apply externally, q24h, Alejandro Sandoval PA, 1 patch at 02/26/25 1418 methocarbamol (Robaxin) tablet 750 mg, 750 mg, Oral, 4x daily, Alejandro Sandoval PA, 750 mg at 02/27/25 0945 piperacillin-tazobactam (Zosyn) 4.5 g in sodium chloride 0.9% 100 mL IVPB (vial adapter required), 4.5 g, Intravenous, q6h, Cassidy Baptiste MD, Last Rate: 36.7 mL/hr at 02/27/25 0946, 4.5 g at 02/27/25 0946 senna (Senokot) tablet 17.2 mg, 17.2 mg, Oral, Nightly, Cassidy Baptiste MD, 17.2 mg at 02/26/252057 simethicone (Mylicon) chewable tablet 80 mg, 80 mg, Oral, 4x daily PRN, Cassidy Baptiste MD Insert peripheral IV, , , Once AND Saline lock IV, , , Once AND sodium chloride 0.9 % flush10 mL, 10 mL, Intravenous, q12h, 10 mL at 02/27/25 0348 AND sodium chloride 0.9 % flush 10 mL, 10 mL, Intravenous, PRN, Cassidy Baptiste MD [COMPLETED] vancomycin (Vancocin) 2,500 mg in sodium chloride 0.9 % 500 mL IVPB, 2,500 mg, Intravenous, Once, 2,500 mg at 02/25/25 0745 FOLLOWED BY vancomycin IVPB 1750 mg in 250 mL NS IVPB, 1,750 mg, Intravenous, q12h, Virginia Lewis MD, Last Rate: 167.4 mL/hr at 02/27/25 0650, 1,750 mg at 02/27/25 0650 O: Visit Vitals BP 121/75 (BP Location: Right arm, Patient Position: Lying) Pulse 63 Temp 37.3 ??C (99.1 ??F) (Oral) Resp 19 Ht 1.88 m (6' 2 ) Wt 120 kg (264 lb 15.9 oz) SpO2 95% BMI 34.02 kg/m?? Smoking Status Every Day BSA 2.5 m?? GEN: NAD. HEENT: MMM. Neck: Supple. CHEST: VAC in place CARDIAC: RRR, no m/r/g RESPIRATORY: CTAB, no w/r/r ABD: Soft, NT, ND. +BS. Back: No gross deformity EXT: No c/c/e. Skin: WNL. No rashes. Neuro: Intact PSYCH: Appropriate. LINES: LABS: LABS REVIEWED CRP, Plasma Latest Ref Rng <=8.0 mg/L 02/25/2025 282.5 (H) Legend: (H) High Labs in last 18 hours CBC WBC 9.62 Hb 13.1 (L) Plt 247 Hct 40.8 ANC ?? INR ??, PTT ??, Anti-Xa ?? BMP Na 135 (L) Cl 101 BUN 18 Glu 128 (H) K 4.6 Co2 24 Cr 1.01 Ca 9.2 iCa ?? Mg ??, Phos ?? Lactate ?? LFT AST ?? AlkPhos ?? T Prot ?? ALK ?? Bili ?? Alb ?? D.Bili ?? MICRO: MICRO REVIEWED. FOR ALL STUDIES, SEE EHR 02/25/2025 HIV perri negative 02/25/2025 HCV perri POSITIVE; PCR negative <12 02/25/2025 BLD - S. aureus x2 bottles at 19hrs 02/25/2025 BLD - MSSA x1 bottle; CONS x 1 bottle at 16hrs Staphylococcus aureus GEENA KB Ampicillin Resistant * Cefoxitin 30 UG/ML Susceptible * Clindamycin <=0.5 ug/ml Susceptible * Daptomycin <=1 ug/ml Susceptible Erythromycin <=0.5 ug/ml Susceptible * Gentamicin <=1 ug/ml Susceptible * Levofloxacin <=1 ug/ml Susceptible * Linezolid <=1 ug/ml Susceptible Minocycline <=1 ug/ml Susceptible * Moxifloxacin <=0.5 ug/ml Susceptible * Oxacillin <=0.25 ug/ml Susceptible Penicillin G >1 ug/ml Resistant * Rifampin <=0.5 ug/ml Susceptible * Tetracycline <=0.5 ug/ml Susceptible * Trimethoprim/Sulfamethoxazole <=0.5/9.5 u... Susceptible * Vancomycin 1 ug/ml Susceptible 02/25/2025 Cutaneous skin (specify site); Swab (sternum) - GS - GPC. Cx - MSSA Staphylococcus aureus GEENA (Preliminary) KB (Preliminary) Ampicillin Resistant * Cefoxitin 30 UG/ML Susceptible * Clindamycin <=0.5 ug/ml Susceptible Daptomycin <=1 ug/ml Susceptible Erythromycin <=0.5 ug/ml Susceptible Gentamicin <=1 ug/ml Susceptible Levofloxacin <=1 ug/ml Susceptible * Linezolid 2 ug/ml Susceptible Minocycline <=1 ug/ml Susceptible Moxifloxacin <=0.5 ug/ml Susceptible * Oxacillin 0.5 ug/ml Susceptible Penicillin G >1 ug/ml Resistant Rifampin <=0.5 ug/ml Susceptible * Tetracycline <=0.5 ug/ml Susceptible Trimethoprim/Sulfamethoxazole <=0.5/9.5 u... Susceptible Vancomycin 1 ug/ml Susceptible 02/26/2025 Sternum; Swab sternal wound drainage culture (op cx) - GS - GPC. CX - S. aureus. Fungal -PENDING. 02/27/2025 BLD - NGTD 02/27/2025 BLD - NGTD STUDIES: STUDIES REVIEWED. FOR ALL STUDIES, SEE EHR 02/27/2025 TTE - Interpretation Summary Left Ventricle: The left ventricular systolic function is normal. The LVEF as measured by biplane volume is 59%. The diastolic function is abnormal. The left ventricular filling pressure is normal. No regional wall motion abnormalities are seen. Right Ventricle: The right ventricle is moderately dilated. The right ventricular systolic functionis normal. The estimated global right ventricular systolic function based upon the focused RV view fractional area change is normal (>/=35%). Unable to estimate the right ventricular systolic pressure (RVSP) due to severe tricuspid regurgitation. Tricuspid Valve: The leaflets appear thickened. 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 There appears to be restricted motion/malcoaptation involving the septal leaflet.. There is no tricuspid valve vegetation. There is severe tricuspid regurgitation. There is systolic flow reversal of the hepatic veins consistent with significant tricuspid valve regurgitation. Right Atrium: The right atrial volume index is normal (18-32mL/m2). Chiari network (normal variant)is noted. IVC/SVC: Based on the IVC size and respiratory variation, the estimated right atrial pressure is 15mmHg. There is no recent study available for direct [id number] comparison. 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 Ptalso with h/o TV IE in 2019 for which he had TV leaflet repair and De Lucas procedure at [facility] ([place] Pt was incarcerated at the time, and post-discharge developed chronic drainage from cephalad portion of sternal wound. Pt reportedly had I&Ds at [facility] facility. Wound subsequentlyhas open and closed several times since 2021, including in December 2024. On/around 02/19/2025, wound again ruptured with large amount of purulent drainage, which pt described as largest amount of renata inage in several years. Pt seen at [facility] 02/24/2025. 02/24/2025 CT showed 2.4x2.1x2.6cm abscess at sternomanubrial junction; inflammatory changes over sternum and manubrium extending posteriorly into anterior mediastinum. Pt transferred to and admitted 02/25/2025 - current. 02/25/2025 sternal wound swab cx growing MSSA. S/p 02/26/2025 I&D of sternum, removal of sternal plates x3 and wires x2; 5cm pocket of purulence noted near sternomanubrial junction; cx grew MSSA. 02/25/2025 BLD cx positive for S. aureus x 3/4 bottles (and CONS from 1 bottle.) CARDIAC: H/o 2019 TV IE, s/p leaflet repair and De Lucas procedure at [facility] SUBSTANCE ABUSE: Illicit: H/o IVDA, polysubstance abuse. As of 02/27/2025, claims sobriety x years. Tobacco: Active smoker ETOH: Denies PSYCHOSOCIAL: H/o incarceration -- freed 04/03/2024. RENAL/URO: H/o post-infectious GN HEME: Anemia of chronic disease INFECTIOUS: HCV. 02/25/2025 PCR negative. H/o TV IE GI: H/o GIB. NEURO: Sz d/o H/o Appy H/o Dental DRUG ALLERGIES: NKDA RECOMMENDATIONS: Re: (chronic sternal wound infection; implant infection; osteomyelitis; bacteremia): Since this is S. aureus bacteremia, will need to repeat blood cultures q48h until we have 2 sets ofnegative blood cultures over 2 sequential days before we can declare bacteremia cleared. 02/27/2025 TTE without vegetations but severe TR. Prognosis guarded given the chronicity of the infection. However, removal of sternal wires and plates should greatly reduce risk of relapse Re: antibiotics: Would recommend High-Dose/Induction antibiotic therapy x 6-8+ weeks. Would then follow this with 3-6 months of Consolidation/Suppressive abx therapy. For now, while inpatient at [facility]: D/c Vanco and Zosyn Start Cefazolin 2g IV q8h as primary coverage for MSSA Re: High-Dose/Induction abx phase of therapy (i.e., long-term recommendations): Patient will Induction therapy x 6-8+ weeks (may need a longer course of therapy based on clinical response.) Dates TBD. Final antibiotics recommendations to follow. Re: OPAT: Unclear at this time whether pt will be safe for STANDARD OPAT (i.e., IV abx therapy administered at home.) He does seem sincere about his sobriety, but will need to verify this friends/family. Will consult OPAT NN. 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 Please have Case Management verify PRIOR to discharge that there is payor source for abx and that patient has arrangements for Home Health. Re: Consolidation/Suppressive phase of abx therapy: Will determine need for/abx regimen at later date. While on High Dose/Induction abx therapy, will need regular blood work to monitor for adverse drug events, response to therapy, drug levels: EVERY WEDNESDAY: CBCP/D, BUN, Creatinine (not BMP), CRP (regular quantitative CRP, not the high-sensitivity/cardiac CRP) EVERY WEDNESDAY: Vancomycin trough if patient is on vancomycin IV. EVERY WEDNESDAY: LFTs, CK if patient is on Daptomycin IV. ID Bone and Joint Consult Service will follow while inhouse. (If patient does leave AMA, then they will need to find another ID specialist to manage their care.) The following complex inpatient infectious disease services were performed today: Complex antimicrobial therapy counseling and treatment * Progress Notes - Estefania Salguero - 02/27/2025 11:55 AM EDT Case Management Adult Initial Progress Note Alex Amaya 34 y.o. male CSN: [id number] Admission: 02/25/2025 2:42 AM Primary Problem: Sternal wound dehiscence, initial encounter PCP: Pcp, No Emergency Contact: Extended Emergency Contact Information Primary Emergency Contact: WendylioMary Mobile Relation: Significant Other Preferred language: Nigerian Improvement Leader needed? No Insurance: Primary Visit Coverage Payer Plan Sponsor Code Group Number Group Name AETNA AETNA OPEN CHOICE ACCESS [id number] Primary Visit Coverage Subscriber Subscriber ID Subscriber Name Subscriber SSN Subscriber Address [id number] Alex Amaya Timothy [id number] [address] [place] [address] Secondary Visit Coverage Payer Plan Sponsor Code Group Number Group Name WELL[employer] MEDICAID WELL[employer]ARE MEDICAID Secondary Visit Coverage Subscriber Subscriber ID Subscriber Name Subscriber SSN Subscriber Address [id number] Alex Amaya [id number] [address] [place] [address] Patient information: Primary Caregiver: Self Accompanied by/Relationship: Mary Lemus ([phone]) Support System: Immediate family Daily Living Activities: Functional Status: Independent Living Arrangements: Spouse/Significant other, Children (5 y.o. child) Type of Residence: Private residence, Single Level (1-2 SACHIN) [address] [place] [id number] Current DME: Equipment Currently Used at Home: none Income Information: Income Source: Employed Income/Expense Information: Income meets expenses Current Resources Utilized: None Housing Circumstances-Z Codes: Housing Circumstances (select all that apply): None Applicable Anticipated Discharge Date: TBD Patient's Discharge Goal: Home with family Assistance Available at Discharge: Significant other Discharge Transport: s/o Follow Up Transport: s/o Home Health / Home Infusion / Outpatient Dialysis Services: N/A Living Will/Advance Directive/Power of Veterans Adviser /Guardian: Have you reviewed your Advance Directive and is it valid for this stay?: Not applicable Advance Directive: Patient does not have advance directive, Patient would not like information Information Provided on Healthcare Directives: No Pre-existing DNR/DNI Order: No Patient Requests Assistance: No Social Drivers of Health Food Insecurity: No Food Insecurity (02/27/2025) Hunger Vital Sign Worried About Running Out of Food in the Last Year: Never true Ran Out of Food in the Last Year: Never true Alcohol Use: Not on file Housing Stability: Unknown (02/27/2025) Housing Stability Vital Sign Unable to Pay for Housing in the Last Year: No Number of Times Moved in the Last Year: Not on file Homeless in the Last Year: No Tobacco Use: High Risk (02/27/2025) Patient History Smoking Tobacco Use: Every Day Smokeless Tobacco Use: Never Passive Exposure: Not on file Transportation Needs: No Transportation Needs (02/27/2025) PRAPARE - Transportation Lack of Transportation (Medical): No Lack of Transportation (Non-Medical): No Depression: Not on file Utilities: Not At Risk (02/27/2025) Utilities Threatened with loss of utilities: No Stress: Not on file Intimate Partner Violence: Not At Risk (02/27/2025) Humiliation, Afraid, Rape, and Kick questionnaire Fear of Current or Ex-Partner: No Emotionally Abused: No Physically Abused: No Sexually Abused: No Physical Activity: Not on file Social Connections: Not on file Financial Resource Strain: Not on file - Pt denied above socioeconomic needs and no request was made for resources for those needs. Additional Comments: SW spoke with primary team this date re: pt's plan of care. According to primary team, this pt is not medically stable for DC this date and is not anticipated to be stable within 72 hrs. Pt is s/p sternal wound washout on 02/27/25. Per team, pt on IV abx and will likely go home on them. SW spoke with pt at bedside for initial assessment; pt accompanied by significant other Mary Lemus ([phone]). Pt does not have a POA/LW/AD. Pt lives with s/o and their 5 y.o. child in a single-story home with 1-2 SACHIN; address in chart confirmed. Pt reports he is independent with ambulation and ADLs at baseline. Pt does not have any home DME. Pt is not on HD or home O2/CPAP/BiPAP. If needed, s/o and s/o's mother could provide initial 24/7 assistance upon DC. Pt reports he does not currently have a pcp. S/o could provide transport upon DC. Pt has never worked with an PATIENT SERVICE COORDINATOR and has never stayed anywhere overnight for physical rehab. Pt prefers [facility] in [place] as his pharmacy. Pt confirms insurance listed in chart. No further SW concerns identified at this time. SW will monitor pt's progress and will follow up with DC planning and needs as appropriate. SACHA Benavides * Progress Notes - Alejandro Sandoval PA - 02/27/2025 11:43 AM EDT CVT Progress Note 24 Hour Events/HPI: - resting quietly in bed - incisional pain well controlled with PO medications overnight - remains afebrile and hemodynamically stable - no acute overnight issues or events Review of Systems: A complete ROS was obtained. All were negative except as noted in HPI. Objective: All laboratory data, images, tracings, and vital sign data for past 24 hours are personally reviewed unless otherwise noted. @PATIENTWT@ , Weight: 113 kg (250 lb) , Ht Readings from Last 1 Encounters: 02/26/25 1.88 m (6' 2 ) , Body mass index is 34.02 kg/m??. VITALS (last 24h) Temp: [36.4 ??C (97.6 ??F)-37.4 ??C (99.3 ??F)] 37.3 ??C (99.1 ??F) Heart Rate: [63-85] 63 Resp: [14-19] 19 BP: (115-134)/(68-86) 121/75 Visit Vitals BP 121/75 (BP Location: Right arm, Patient Position: Lying) Pulse 63 Temp 37.3 ??C (99.1 ??F) (Oral) Resp 19 Ht 1.88 m (6' 2 ) Wt 120 kg (264 lb 15.9 oz) SpO2 95% BMI 34.02 kg/m?? Smoking Status Every Day BSA 2.5 m?? I & O Summary Intake/Output Summary (Last 24 hours) at 02/27/2025 1143 Last data filed at 02/27/2025 0946 Gross per 24 hour Intake 2185 ml Output 1800 ml Net 385 ml LABS CBC WBC 9.62 Hb 13.1 (L) Plt 247 Hct 40.8 ANC ?? INR ??, PTT ??, Anti-Xa ?? BMP Na 135 (L) Cl 101 BUN 18 Glu 128 (H) K 4.6 Co2 24 Cr 1.01 Ca 9.2 iCa ?? Mg ??, Phos ?? Lactate ?? LFT AST ?? AlkPhos ?? T Prot ?? ALK ?? Bili ?? Alb ?? D.Bili ?? HOURS) MEDICATIONS acetaminophen, 1,000 mg, Oral, q6h SAUL Buprenorphine HCl-Naloxone HCl, 8 mg, Sublingual, BID docusate sodium, 100 mg, Oral, BID heparin (porcine), 5,000 Units, Subcutaneous, q8h SAUL ibuprofen, 600 mg, Oral, q6h SAUL lidocaine, 1 patch, Apply externally, q24h methocarbamol, 750 mg, Oral, 4x daily piperacillin-tazobactam, 4.5 g, Intravenous, q6h senna, 17.2 mg, Oral, Nightly sodium chloride, 10 mL, Intravenous, q12h vancomycin, 1,750 mg, Intravenous, q12h PRN medications: calcium carbonate, HYDROmorphone OR HYDROmorphone, HYDROmorphone, HYDROmorphone, simethicone, Insert peripheral IV AND Saline lock IV AND sodium chloride AND sodium chloride Physical Exam: GENERAL: Well-developed, well-nourished. No apparent distress. EYES: No scleral icterus or conjunctivitis HENT: Atraumatic, normocephalic, nares patent, mucus membranes pink and moist NECK: Supple, no JVD, no evidence of bruit bilaterally RESP/CHEST: Clear to auscultation bilaterally. Normal work of breathing with symmetric expansion noted. + wound vac CARD: Regular rate and rhythm. Normal S1/S2. No murmur. No rubs or gallops. Extremities: No lower extremity edema present. No cyanosis or clubbing. Pedal pulses palpable +2. GI: No organomegaly or masses. Soft, non-tender, nondistended. Bowel sounds present and normoactivex 4 quadrants SKIN: [place], warm, and dry. No rash, sores, or lesions. NEURO: AAOx4. Motor function intact and no focal deficits. PSYCH: Mood and affect congruent and appropriate to situation. 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 and OUD on Suboxone who presented to ER on 02/25 due to sternal woundinfection H/o Tricuspid Valve Repair in 2019 Sternal Wound Infection (POA) Staph Aureus Bacteremia (POA) - OSH CT imaging uploaded and reviewed - 02/25: BCx (+) staph aureus - underwent chest washout, wound debridement, removal of sternal plates, and wound vac placement on02/[address] Daniel - 02/26: intra-op wound Cx (+) staph aureus - ID consulted, continue vanc and Zosyn - TTE pending OUD (POA) Post-Operative Pain - continue home Suboxone - [facility] Obesity (POA) - BMI 32 - complicates all aspects of care Plan: - continue IV abx per ID - continue wound vac - TTE completed this morning, read pending Cardiothoracic Surgery [phone] * Discharge Instr - Other Orders - Donna Rosario RN - 02/27/2025 10:28 AM EDT Please arrive 30 minutes early for your appointment with Dr. Daniel Prior to your appointment, go to the radiology department on the 1st floor of the [facility] near [facility] for a chest x-ray. Then go to the lab on the 2nd floor for blood work. Then come to our office on the 3rd floor. Please bring your BOTTLES of medications and parking ticket in for validation. * Discharge Instr - Diet - Donna Rosario RN - 02/27/2025 10:27 AM EDT Your food may taste funny. This is normal after surgery, and it WILL go away. * Discharge Instr - Activity - Donna Rosario RN - 02/27/2025 10:27 AM EDT Take a shower every day. Use a clean washcloth on your incisions every day. Wash your incisions before you wash anywhere else on your body. Do NOT use Neosporin, Peroxide, Betadine or other ointments on your incisions. Do NOT lift, push or tube puller 5 pounds for six weeks. Do NOT drive until your physician gives you approval. Move around as you are able. No activity that tires you out. You can sleep on your side if it is comfortable. You can ride in the front seat of the car. You canraise both arms at the same time. * Discharge Instr - AVS First Page - Donna Rosario RN - 02/27/2025 10:26 AM EDT Temperature 101.5 or greater. Incisions coming open or draining pus. Pain not relieved by medications. Increased shortness of breath. Increased swelling. For questions or concerns, please contact??? Donna Rosario CT Surgery Nurse Navigator at [phone] Wednesday through Wednesday 7am- 3:30pm [facility] [phone] after 3:30 pm, weekends and holidays - ask for the CT surgeon automobile service station attendant. * Progress Notes - Alejandro Sandoval PA - 02/26/2025 1:24 PM EDT CVT Progress Note 24 Hour Events/HPI: - went to OR this morning for washout with Dr Daniel - seen this afternoon after returning from PACU - doing well, pain under control Review of Systems: A complete ROS was obtained. All were negative except as noted in HPI. Objective: All laboratory data, images, tracings, and vital sign data for past 24 hours are personally reviewed unless otherwise noted. @PATIENTWT@ , Weight: 113 kg (250 lb) , Ht Readings from Last 1 Encounters: 02/26/25 1.88 m (6' 2 ) , Body mass index is 32.1 kg/m??. VITALS (last 24h) Temp: [36.8 ??C (98.3 ??F)-37.6 ??C (99.6 ??F)] 37.4 ??C (99.3 ??F) Heart Rate: [77-105] 79 Resp: [12-29] 17 BP: (132-162)/(83-100) 134/85 Visit Vitals BP 134/85 Pulse 79 Temp 37.4 ??C (99.3 ??F) (Oral) Resp 17 Ht 1.88 m (6' 2 ) Wt 113 kg (250 lb) SpO2 94% BMI 32.10 kg/m?? BSA 2.43 m?? I & O Summary Intake/Output Summary (Last 24 hours) at 02/26/2025 1324 Last data filed at 02/26/2025 1300 Gross per 24 hour Intake 1393 ml Output 0 ml Net 1393 ml LABS CBC WBC ?? Hb ?? Plt ?? Hct ?? ANC ?? INR ??, PTT ??, Anti-Xa ?? BMP Na ?? Cl ?? BUN ?? Glu ?? K ?? Co2 ?? Cr ?? Ca ?? iCa ?? Mg ??, Phos ?? Lactate 0.6 LFT AST ?? AlkPhos ?? T Prot ?? ALK ?? Bili ?? Alb ?? D.Bili ?? HOURS) MEDICATIONS acetaminophen, 1,000 mg, Oral, q6h SAUL Buprenorphine HCl-Naloxone HCl, 16 mg, Sublingual, Daily docusate sodium, 100 mg, Oral, BID heparin (porcine), 5,000 Units, Subcutaneous, q8h SAUL ibuprofen, 600 mg, Oral, q6h SAUL lidocaine, 1 patch, Apply externally, q24h methocarbamol, 750 mg, Oral, 4x daily piperacillin-tazobactam, 4.5 g, Intravenous, q6h senna, 17.2 mg, Oral, Nightly sodium chloride, 10 mL, Intravenous, q12h sodium chloride, 10 mL, Intravenous, q12h vancomycin, 1,750 mg, Intravenous, q12h PRN medications: calcium carbonate, HYDROmorphone OR HYDROmorphone, HYDROmorphone, HYDROmorphone, simethicone, Insert peripheral IV AND Saline lock IV AND sodium chloride AND sodium chloride, Insert peripheral IV AND Saline lock IV AND sodium chloride AND sodium chloride Physical Exam: GENERAL: Well-developed, well-nourished. No apparent distress. EYES: No scleral icterus or conjunctivitis HENT: Atraumatic, normocephalic, nares patent, mucus membranes pink and moist NECK: Supple, no JVD, no evidence of bruit bilaterally RESP/CHEST: Clear to auscultation bilaterally. Normal work of breathing with symmetric expansion noted. + wound vac CARD: Regular rate and rhythm. Normal S1/S2. No murmur. No rubs or gallops. Extremities: No lower extremity edema present. No cyanosis or clubbing. Pedal pulses palpable +2. GI: No organomegaly or masses. Soft, non-tender, nondistended. Bowel sounds present and normoactivex 4 quadrants SKIN: [place], warm, and dry. No rash, sores, or lesions. NEURO: AAOx4. Motor function intact and no focal deficits. PSYCH: Mood and affect congruent and appropriate to situation. 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 and OUD on Suboxone who presented to ER on 02/25 due to sternal woundinfection H/o Tricuspid Valve Repair in 2019 Sternal Wound Infection (POA) Staph Aureus Bacteremia (POA) - OSH CT imaging uploaded and reviewed - BCx (+) staph aureus - underwent chest washout, wound debridement, removal of sternal plates, and wound vac placement on02/[address] Daniel - intra-op cultures pending - ID consulted, continue vanc and Zosyn - TTE pending OUD (POA) Post-Operative Pain - continue home Suboxone - [facility] Obesity (POA) - BMI 32 - complicates all aspects of care Plan: - continue IV abx per ID - continue wound vac Cardiothoracic Surgery [phone] * Anesthesia PACU Signout - Umberto Davis DO - 02/26/2025 12:25 PM EDT Patient: Alex Amaya Anesthesia Type: general Vitals Value Taken Time BP 134/85 02/26/25 12:00 Temp 37.4 ??C (99.3 ??F) 02/26/25 12:00 Pulse 84 02/26/25 12:24 Resp 14 02/26/25 12:23 SpO2 93 % 02/26/25 12:24 Vitals shown include unfiled device data. Anesthesia PACU Signout Patient location during evaluation: PACU Patient participation: complete - patient participated Level of consciousness: baseline and awake Pain management: adequate (pain score 0-3) Airway patency: natural airway Hydration status: acceptable PONV: none Cardiovascular status: acceptable and hemodynamically stable Respiratory status: acceptable, spontaneous ventilation, unassisted and nonlabored ventilation Discharge Disposition: admit to inpatient unit Cosigned by Jewell Weeks MD at 02/26/2025 5:18 PM EDT Associated attestation - Jewell Weeks MD - 02/26/2025 5:18 PM EDT I agree with the findings and plan as documented. * Op Note - Sherlyn Daniel MD - 02/26/2025 9:26 AM EDT OPERATIVE NOTE CORONARY ARTERY BYPASS GRAFTING: Date: 02/26/2025 Location: [facility] OR Name: Alex Amaya : 1990, Pre-operative Diagnosis: Problem List[1] Post-operative Diagnosis: Problem List[2] Operation: Chest wall debridement, removal sternal plates and wires, wound vac dressing placement Surgeon: * Sherlyn Daniel - Primary Pacheco Ocasio Assisting Anesthesia: Anesthesia type not filed in the log. ASA Class: ASA status not filed in the log. Indication: Chest wall abscess Brief History: Alex Amaya is a 34 y.o. male with history of IV drug use on suboxone, infectious endocarditisrequiring tricuspid valve repair in [place] in 2019. He states that he had to have several incision and drainages of the superior aspect of his sternotomy scar that [facility] due to drainage with the last in 2021. He represented with continued drainage from his wound with CT imaging revealing infectious pocket. Risks benefits alternatives discussed and patient consents to proceed to the operating room. Findings: Approximately 5cm pocket of purulence noted near sternomanubrial junction. Cultures sent. Sternum intact. 3 sternal plates and 2 wires removed. 20x4.5x7cm wound. Procedure Details: The patient was taken to the operating room placed on operative table supine position, General anesthesia with endotracheal intubation and the appropriate monitoring lines were done by the anesthesiologist. The patient was prepped and draped in the usual surgical fashion. Previous median sternotomywas opened and findings as above with cultures sent. Previous sternal plates and wires were removedwith sternum noted to be fulling intact. Wound was debrided. Hemostasis was obtained. White sponge followed by silver sponge was placed and wound dressing applied Estimate Blood Loss: Minimal Drains: None Specimens: wound cultures, sternal plate Implants: white sponge, silver sponge wound vac Complications: None; patient tolerated the procedure well. Disposition: PACU - hemodynamically stable. Condition: stable [1] Patient Active Problem List Diagnosis Sternal wound dehiscence, initial encounter Chest wall abscess [2] Patient Active Problem List Diagnosis Sternal wound dehiscence, initial encounter Chest wall abscess * Significant Event - Maxwell Ocasio MD - 02/26/2025 5:53 AM EDT Patient to OR today for chest washout and removal of sternal plates and all other indicated procedures. - History and physical note at admission/most recent progress note reviewed with no significant changes noted. - The risks, benefits, indications, contraindications, and surgical alternatives were explained. Specifically, the risks of surgery, including bleeding, infection, injury to nearby organs or structures, need for additional surgery/procedures, wound complications, and complications of general anesthe duane. Commonly associated risks of the procedure were also discussed and all questions were answered. - Written and informed consent was obtained on 02/25. - NPO since midnight. Pacheco Ocasio MD Cardiothoracic Surgery Pager: [phone] * Significant Event - Alejandro Sandoval PA - 02/25/2025 1:35 PM EDT Patient seen and evaluated with Dr Daniel. Will go to OR tomorrow for chest washout and removal of sternal plates with Dr Daniel. Pre-op orders placed. Consent obtained and placed in paper chart. NPOp MO. CT Surgery [phone] * Consults - Kinga Mc MD - 02/25/2025 12:12 PM EDTAssociated Order(s): IP CONSULT TO INFECTIOUS DISEASES Images from the original note were not included. BONE AND JOINT INFECTIOUS DISEASE INPATIENT CONSULT NOTE Reason for Consult: Sternal Wound drainage, history of multiple I&Ds Attending: Sherlyn Daniel MD Date of admission: 02/25/2025 History of Present Illness: Alex Amaya is a 34 y.o. male with history of IVDU on suboxone, nTVie s/p valve repair with a DeVega Procedure at [facility] (2019), multiple I&Ds of superior sternotomy site most recent in 2021, and chronic drainage of sternotomy (last episode 3 months prior) who presents as a transfer from [facility] with new and worsened superior sternotomy drainage. MDET team were consulted to provide recommendations on therapy and management. Mr. Amaya first noted repeat drainage on 02/19/25, associated with fevers, chills, and swelling. He went to a local ED and was discharged. Given no change he then went to [facility]. CT Chest showed a fluid collection anterior to the sternum and was transferred to for ID follow up and CT surgery evaluation. Upon arrival to on 02/25 blood cultures were taken and have NGTD. Wound cultures have a GS positive for GPC in pairs and clusters. He was started on Vancomycin and Zosyn, [facility]. Additional pertinent admission workup includes Hep C antibodypositivity, HIV non-reactive, CRP of 282.5, and an ESR of 65. When spoken to Mr. Amaya endorses persistent drainage from his sternal wound. In the room therewas considerable drainage on his dressing, which ID team changed. He endorsed the above history anddescribes following with a shroud line tier Dr. Park. Social: Was recently incarcerated until April 2024. Review of Systems: 14 systems reviewed and negative unless otherwise stated PMH: Medical History[1] PSH: Surgical History[2] FH: Family History[3] SH: Social History[4] Allergies: Allergies[5] Objective: Visit Vitals BP (!) 142/90 (BP Location: Left arm, Patient Position: Lying) Pulse 100 Temp 37.3 ??C (99.2 ??F) (Oral) Resp 18 Ht 1.88 m (6' 2 ) Wt 113 kg (250 lb) SpO2 94% BMI 32.10 kg/m?? BSA 2.43 m?? Physical exam: GEN: alert, no acute distress HEAD: Normocephalic, atraumatic EYES: EOMI, no scleral icterus ENT: normal hearing, moist mucosa CHEST: sternal wound present with purulent drainage, well healed sternotomy scar otherwise PULM: CTA bilaterally, good air movement CV: normal rate, regular rhythm, no murmur appreciated ABD: bowel sounds active, soft, nontender, nondistended, no palpable masses : deferred EXT: no edema SKIN: warm, dry, no rashes NEURO: AAO x 3, no obvious deficits PSYCH: cooperative, appropriate affect Labs: CBC WBC 9.74 Hb 15.5 Plt 167 Hct 45.4 ANC 7.79 (H) BMP Na 137 Cl 101 BUN 13 Glu 132 (H) K 3.7 Co2 24 Cr 0.86 Mg 2.2, Phos 2.7 LFT AST 20 AlkPhos 100 T Prot 7.4 ALK 16 Bili 0.7 Alb ?? D.Bili ?? Results from last 7 days Lab Units 02/25/25317 CRP mg/L 282.5* Results from last 7 days Lab Units 02/25/25317 SED RATE mm/hr 65* Medications: Current Medications[6] Imaging/Studies: No image results found. Micro: No results found for the last 90 days. Results Procedure Component Value Units Date/Time Blood Culture (Aerobic/Anaerobet Set) [[id number]] Collected: 02/25/25317 Order Status: Completed Specimen: Blood, Venous Updated: 02/25/25606 Culture Culture in lab Blood Culture (Aerobic/Anaerobet Set) [[id number]] Collected: 02/25/25317 Order Status: Completed Specimen: Blood, Venous Updated: 02/25/25 0601 Culture Culture in lab Wound Culture and Gram Stain [[id number]] (Abnormal) Collected: 02/25/25445 Order Status: Completed Specimen: Swab from Cutaneous skin (specify site) Updated: 02/25/25 05 Gram Stain Result Numerous Polymorphonuclear leukocytes Numerous Gram positive cocci in pairs Numerous Gram positive cocci in clusters Antibiotics: Vancomycin 02/25-P Zosyn 02/25-P Assessment: Alex Amaya is a 34 y.o. male with history of IVDU on suboxone, nTVie s/p valve repair with a DeVega Procedure at [facility] (2019), multiple I&Ds of superior sternotomy site most recent in 2021, and chronic drainage of sternotomy (last episode 3 months prior) who presents as a transfer from [facility] with new and worsened superior sternotomy drainage. MDET team were consulted to provide recommendations on therapy and management. Cultures have not grown any specific organisms at this time, however GS with GPC in pairs and clusters. Agree with washout tomorrow and would obtain cultures. At this time can continue antibiotic therapy. # Hx of nTV ie s/p DeVega Procedure at [facility] (2019) # Sternotomy Site SSTI # Chronic intermittent sternotomy drainage # Hx of IVDU on suboxone Recommendations: - Can continue Vancomycin to be dosed by pharmacy and Zosyn 4.5 g q6 hours IV - Please obtain aerobic, anaerobic, fungal, and afb cultures from washout - Anticipate that he will require several weeks of antibiotic therapy, will most likely need OPAT evaluation - Would obtain a TTE - While inpatient and receiving antibiotic therapy, please obtain at least twice weekly CBC, CMP, and weekly CRP/ESR. - Would recommend ACES consult for this gentleman Thank you for the opportunity to see this patient in consultation. BONE AND JOINT ID will follow. Kinga Mc MD Infectious Disease Fellow, PGY-5 [1] Past Medical History: Diagnosis Date Endocarditis [2] No past surgical history on file. [3] No family history on file. [4] [5] No Known Allergies [6] Current Facility-Administered Medications Medication Dose Route Frequency Provider Last Rate Last Admin acetaminophen (Tylenol) tablet 1,000 mg 1,000 mg Oral q6h PRN Cassidy Baptiste MD 1,000 mg at 02/25/25 0806 Buprenorphine HCl-Naloxone HCl (Suboxone) 8-2 MG per SL film 16 mg 16 mg Sublingual Daily Alejandro Sandoval PA 16 mg at 02/25/25 0815 calcium carbonate (Tums) chewable tablet 500 mg 500 mg Oral q6h PRN Cassidy Baptiste MD docusate sodium (Colace) capsule 100 mg 100 mg Oral BID Cassidy Baptiste MD 100 mg at 02/25/25 0806 heparin (porcine) injection 5,000 Units 5,000 Units Subcutaneous q8h SAUL Cassidy Baptiste MD 5,000Units at 02/25/25 0446 ibuprofen tablet 400 mg 400 mg Oral q6h PRN Alejandro Sandoval PA 400 mg at 02/25/25 0828 piperacillin-tazobactam (Zosyn) 4.5 g in sodium chloride 0.9% 100 mL IVPB (vial adapter required) 4.5 g Intravenous q6h Cassidy Baptiste MD 36.7 mL/hr at 02/25/25 1104 4.5 g at 02/25/25 1104 senna (Senokot) tablet 17.2 mg 17.2 mg Oral Nightly Cassidy Baptiste MD simethicone (Mylicon) chewable tablet 80 mg 80 mg Oral 4x daily PRN Cassidy Baptiste MD sodium chloride 0.9 % flush 10 mL 10 mL Intravenous q12h Cassidy Baptiste MD 10 mL at 02/25/25 0447 And sodium chloride 0.9 % flush 10 mL 10 mL Intravenous PRN Cassidy Baptiste MD vancomycin IVPB 1750 mg in 250 mL NS IVPB 1,750 mg Intravenous q12h Virginia Lewis MD No current outpatient medications on file. Cosigned by Sherman Gonzáles MD at 02/25/2025 4:19 PM EDT Associated attestation - Sherman Gonzáles MD - 02/25/2025 4:19 PM EDT I saw and evaluated the patient with the resident/fellow. I discussed the case with the resident/fellow and agree with the findings and plan as documented. ID will follow. Sherman Gonzáles MD Pager: [phone] I spent greater than 110 minutes performing the following components of the encounter (on the day of the encounter): reviewing history, examining the patient, reviewing imaging and/or labs, echo, ECGand/or other imaging results, counseling the patient and family/caregiver, communicating with otherhealth behavioral health care manager. The patient is receiving directed antibiotic therapy which requires monitoring of daily labs for toxicities. Greater than 50% of the time spent on the encounter was [id number] providing direct patient care, counseling for the patient/caregiver, and care coordination. The following complex inpatient infectious disease services were performed today: Complex antimicrobial therapy counseling and treatment * Progress Notes - Marcos Hopper, Mk - 02/25/2025 4:59 AM EDT Pharmacokinetic Consult HPI and Hospital Course: Alex Amaya is a 34 y.o. male admitted for Sternal wound dehiscence, initial encounter. Pharmacy consulted to assist with management of vancomycin indicated for Complicated Skin and Soft Tissue Infection An individualized dose was entered on behalf of the requesting MD/HILDA. Details are listed below: Ht: Ht Readings from Last 1 Encounters: 02/25/25 1.88 m (6' 2 ) Wt: Wt Readings from Last 1 Encounters: 02/25/25 113 kg (250 lb) Creatinine: Creatinine, Plasma (mg/dL) Date/Time Value 02/25/2025 0318 0.86 WBC: WBC Count (10*3/uL) Date/Time Value 02/25/2025 0318 9.74 CrCl: Estimated Creatinine Clearance: 125 mL/min (by C-G formula based on SCr of 0.86 mg/dL). Plan: Given the information presented, the following vancomycin regimen will be ordered: Loading dose of Vancomycin 2500 mg x 1 dose followed by a maintenance regimen of Vancomycin 1750 mgQ12H. Estimated AUC on this regimen using population-based parameters: 461. Primary team pharmacist will continue to follow with dosing and monitoring recommendations as appropriate. Thank you, Ru TrejoD, [facility] Clinical Staff Pharmacist * H&P - Cassidy Baptiste MD - 02/25/2025 4:21 AM EDTAssociated Order(s): Consult to Cardiothoracic Surgery Consult to Cardiothoracic Surgery Consult performed by: Cassidy Baptiste MD Consult ordered by: Franco Guillory MD Reason for consult: sternal wound infection Reason for visit / Chief Complaint: sternal wound infection History of present illness: Alex Amaya is a 34 y.o. male with history of IV drug use on suboxone, infectious endocarditisrequiring tricuspid valve repair in [place] in 2019. He states that he had to have several incision and drainages of the superior aspect of his sternotomy scar that [facility] due to drainage with the last in 2021. He reports that the area has chronically healed and opened up multiple times, most recently about 3 months ago. He has been on antibiotics before for the drainage as well. On Wednesday the superior aspect of his scar started to have purulent drainage again. He reports associated fevers, chills, and swelling over his chest wall. This is the most significant drainage he's had in a few years. He sought attention at a local ER on Wednesday, but says he was discharged without much intervention. His symptoms persisted and got worse so he went to [facility] where he was found to have the chest abscess. He was transferred to for evaluation. He denies drug use in the past 7 years. He denies history of diabetes His chronic comorbid conditions that impact our treatment planning include: Obesity Prior Open Repair of Heart NYHA Classification: Class I: No symptoms with ordinary activity. Active Problems: Patient Active Problem List Diagnosis Date Noted Sternal wound dehiscence, initial encounter 02/25/2025 Medical History: Past Medical History: Diagnosis Date Endocarditis Surgical History: Surgical History[1] Social History: Tobacco: Tobacco Use: Medium Risk (01/09/2025) Received from [facility] Patient History Smoking Tobacco Use: Former Smokeless Tobacco Use: Never Passive Exposure: Not on file Alcohol: Alcohol Use: Not on file Illicit drug use: Social History Substance and Sexual Activity Drug Use Not on file Family History: family history is not on file. Allergies: Allergies[2] Medications: Prior to Admission medications Not on File Physical exam: Visit Vitals BP (!) 148/92 Pulse 102 Temp 36.8 ??C (98.3 ??F) SpO2 97% General: alert and oriented, appropriate HEENT: normocephalic, atraumatic, normal external ears and nose Eyes: no scleral icterus, normal conjunctiva Neck: supple, no trachea deviation Lungs: symmetric chest rise, non-labored breathing Heart: tachycardic, well perfused Abdomen: soft NT/ND, Extremities: no peripheral edema Skin: no rash, no cyanosis and warm to touch Psychiatric: oriented to person/place/time and normal mood/affect Incision: superior aspect of sternotomy incision with small area of purulent drainage. Erythema andswelling in the area as well. Tender to palpation Labs in last 18 hours: CBC WBC 9.74 Hb 15.5 Plt 167 Hct 45.4 ANC 7.79 (H) INR ??, PTT ??, Anti-Xa ?? BMP Na ?? Cl ?? BUN ?? Glu ?? K ?? Co2 ?? Cr ?? Ca ?? iCa ?? Mg ??, Phos ?? Lactate ?? LFT AST ?? AlkPhos ?? T Prot ?? ALK ?? Bili ?? Alb ?? D.Bili ?? Imaging: No echocardiogram results found for the past [address] reviewed: fluid collection, anterior to sternum at superior aspect. Bone appears well healed Cardiac Cath Results: None Impression: Alex Amaya is a 34 y.o. male with history of IV drug use on suboxone, infectious endocarditisrequiring tricuspid valve repair in [place] in 2019. He states that he had to have several incision and drainages of the superior aspect of his sternotomy scar that occurred in [facility] due to drainage with the last in 2021. He reports that the area has chronically healed and opened up multiple times, most recently about 3 months ago. He has been on antibiotics before for the drainage as well. On Wednesday the superior aspect of his scar started to have purulent drainage again. He reports associated fevers, chills, and swelling over his chest wall. This is the most significant drainage he's had in a few years. He sought attention at a local ER on Wednesday, but says he was discharged without much intervention. His symptoms persisted and got worse so he went to [facility] where he was found to have the chest abscess. He was transferred to for evaluation. Imaging reviewed. Patient has fluid collection anterior to sternum with purulent drainage. Likely achronic long standing infection. Will admit and start antibiotics. No signs of sepsis although patient is slightly tachycardic. Plan: Admit to progressive Start broad spectrum abx Wound culture Blood cultures ECHO Regular diet Restart home meds Consult Dr. Sherman Craig, infectious disease [1] No past surgical history on file. [2] No Known Allergies Cosigned by Sherlyn Daniel MD at 03/01/2025 11:36 AM EDT Associated attestation - Sherlyn Daniel MD - 03/01/2025 11:36 AM EDT I saw and evaluated the patient with the resident/fellow. I discussed the case with the resident/fellow and agree with the findings and plan as documented. * ED Provider Notes - Virginia Lewis MD - 02/25/2025 2:35 AM EDT - HPI Chief Complaint Patient presents with Wound Check Mr. 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 He states that when he was first postop from his original surgery, he had to have several incision and drainages of the superior aspect of his sternotomy scar that occurred in the medical facility at the [facility] that he was in. He had not had any difficulty with it since 2021, but in the last 5 days, it opened up again and has been gushing purulent material since. He reports associated fevers, chills, and swelling over his chest wall.He sought attention at a local ER on Wednesday, but says he was discharged without much intervention. His symptoms persisted and got worse so he went to [facility] where he was found to have the chest abscess. He was transferred to [facility] for evaluation with CT surgery and ID History provided by: Patient and medical records motel maid used: No Patient History Medical History[1] Surgical History[2] Family History[3] Social History[4] Allergies: Allergies[5] Physical Exam ED Triage Vitals [02/25/25 0241] Temp Heart Rate Resp BP 36.8 ??C (98.3 ??F) 102 20 (!) 148/92 SpO2 Temp src Heart Rate Source Patient Position 97 % -- -- -- BP Location FiO2 (%) -- -- Physical Exam Constitutional: Appearance: Normal appearance. HENT: Head: Normocephalic and atraumatic. Cardiovascular: Rate and Rhythm: Normal rate and regular rhythm. Pulmonary: Effort: Pulmonary effort is normal. Breath sounds: Normal breath sounds. Abdominal: General: Abdomen is flat. Musculoskeletal: General: Normal range of motion. Cervical back: Normal range of motion. Skin: Comments: Anterior chest is erythematous with generalized swelling. Small lesion at the top of the medial sternotomy scar with purulent drainage. Gauze on top of the wound almost soaked through Neurological: General: No focal deficit present. Mental Status: He is alert and oriented to person, place, and time. Psychiatric: Mood and Affect: Mood normal. Behavior: Behavior normal. No data recorded ED Course & MDM - Assessment: 34 y.o. male presents to ED with complaint of chest wound. Differential Diagnosis: abscess, cellulitis In order to fully explore the differential diagnosis the following treatments and tests were ordered: ED Medication Administration from 02/25/2025 0013 to 02/25/2025 0419 Date/Time Order Dose Route Action 02/25/2025 033 EDT lactated Ringer's infusion 1,000 mL 1,000 mL Intravenous New Bag 02/25/2025 033 EDT acetaminophen (Tylenol) tablet 1,000 mg 1,000 mg Oral Given All Other Orders Ordered Status Ordering Provider 02/25/25417 Admit to inpatient Once Completed CASSIDY BAPTISTE 02/25/25332 Consult to Cardiothoracic Surgery Once Specialty: Cardiothoracic Surgery Provider: (Not yet assigned) Acknowledged VIRGINIA LEWIS 02/25/25307 Blood Culture (Aerobic/Anaerobet Set) STAT In process VIRGINIA LEWIS 02/25/25307 Blood Culture (Aerobic/Anaerobet Set) STAT In process VIRGINIA LEWIS 05/25/25 0308 Hepatitis C Antibody - ED Once Final result VIRGINIA LEWIS 02/25/25 0308 ED Protocol - HIV 1/2 Antibody/Antigen Screen Once Final result [place] 02/25/25 0308 ED HIV 1/2 Antibody/Antigen Screen w/Reflex to HIV 1/2 Differentiation PROCEDURE ONCE Final result [place] 02/25/25 0308 CBC w/diff STAT Final result [place] 02/25/25 0308 CMP STAT Final result [place] 02/25/25 0308 Magnesium STAT Final result [place] 02/25/25 0308 Phosphorus STAT Final result [place] 02/25/25 0308 C-Reactive protein STAT Final result [place] 02/25/25 0308 Sed rate, automated STAT Final result [place] 02/25/25 0308 Wound Culture and Gram Stain STAT Collected VIRGINIA LEWIS ED Course as of 02/25/25 0511 Sun February 25, 2025 0307 On initial evaluation, pt states that [JG] [address], evidence of extensive subcutaneous edema and infection in the anterior chest wall with fluid collection [JG] 0314 Reviewed of records from [facility], given 1 g ceftriaxone at 19:47. Tmax 101 [JG] [address] surgery for consult, they will see him [JG] 0343 CBC w/diff(!) No leukocytosis, mild neutrophilia [JG] 0355 Sed rate, automated(!) [JG] [address] surgery [JG] ED Course User Index [JG] Virginia Lewis MD Clinical Impressions as of 02/25/25 0511 Chest wall abscess Social Determinates of Health Risks (including Economic Stability, Education and level of understanding, Healthcare access and quality and concerning social factors): None identified on this visit Ultimately, this patient was Was admitted (Admission) The encounter diagnosis was Chest wall abscess.. Patient believed to require admission for the listed diagnoses. The CT surgery service was consulted for admission and was agreeable to admit to Acute Floor (Med/Surg). ED Prescriptions None Disposition Admit Admitting/Attending Physician: SHERLYN DANIEL [[id number]] Provider Care Team: CVT CARDIAC SURGERY [[id number]] Are they the primary team?: Yes [1] - Virginia Lewis MD Internal Medicine, PGY-2 [phone] or via Epic chat [1] Past Medical History: Diagnosis Date Endocarditis [2] No past surgical history on file. [3] No family history on file. [4] [5] No Known Allergies Virginia Lewis MD Resident 02/25/25510 Cosigned by Franco Guillory MD at 02/25/2025 6:28 AM EDT Associated attestation - Franco Guillory MD - 02/25/2025 6:28 AM EDT I saw and evaluated the patient with the resident/fellow. I discussed the case with the resident/fellow and agree with the findings and plan as documented. * ED Triage Notes - Rafael Brandon RN - 02/25/2025 2:35 AM EDT Pt presents from OSH with abscess to chest. Endocarditis 5 years which developed and abscess which was drained in 2021. Pt endorses fevers,. Pain, drainage, fever x 1 week. documented in this encounter Plan of Treatment Upcoming Encounters Date Type Department Care Team (Late st Contact Info) Description 04/10/2025 8:30 AM EDT Office Visit [address] [id number] Keny Chin MD [address] [place] [phone] Pending Results Name Type Priority Associated Diagnoses Date /Time Prepare Leukocyte Reduced RBC: 4 Units Blood Bank Routine 02/26/2025 8:12 AM EDT AFB Culture, Non Respiratory Source and Acid Fast Stain Microbiology Routine Chest wall abscess 02/26/2025 10:10 AM EDT documented as of this encounter Procedures Procedure Name Priority Date/Time Associated Diagnosis Comments INSERT PICC LINE Routine 03/04/2025 4:49 PM EDT MORPHOLOGY Routine 03/03/2025 2:11 AM EDT MANUAL DIFFERENTIAL Routine 03/03/2025 2 :11 AM EDT BLOOD CULTURE (AEROBIC/ANAEROBIC SET) Routine 03/03/2025 2:11 AM EDT BLOOD CULTURE (AEROBIC/ANAEROBIC SET) Routine 03/03/2025 2:11 AM EDT CBC WITH AUTO DIFFERENTIAL Routine 03/03/2025 2:11 AM EDT MAGNESIUM, PLASMA Routine 03/03/2025 2:1 1 AM EDT HEPATIC FUNCTION PANEL Routine 2:11 AM EDT CBC W/O DIFFERENTIAL Routine 03/01/2025 3:55 AM EDT BASIC METABOLIC PANEL, PLASMA Routine 03/01/2025 3:55 AM EDT BLOOD CULTURE (AEROBIC/ANAEROBIC SET) Routine 03/01/2025 3:45 AM EDT BLOOD CULTURE (AEROBIC/ANAEROBIC SET) Routine 03/01/2025 3:30 AM EDT CBC W/O DIFFERENTIAL Routine 02/28/2025 4:03 AM EDT MAGNESIUM, PLASMA Routine 02/28/2025 4:0 3 AM EDT BASIC METABOLIC PANEL, PLASMA Routine 02/28/2025 4:03 AM EDT INSERT PERIPHERAL IV STAT 02/27/2025 6:13 PM EDT ECHO, ADULT TRANSTHORACIC COMPLETE Routine 02/27/2025 10:50 AM EDT VANCOMYCIN, PEAK, PLASMA Timed 02/27/2025 10:46 AM EDT CBC W/O DIFFERENTIAL Routine 02/27/2025 4:33 AM EDT HEMOGLOBIN A1C Routine 02/27/2025 4:33 AM EDT LIPID PROFILE, PLASMA Routine 02/27/2025 4:33 AM EDT BASIC METABOLIC PANEL, PLASMA Routine 02/27/2025 4:33 AM EDT BLOOD CULTURE (AEROBIC/ANAEROBIC SET) Routine 02/27/2025 4:30 AM EDT BLOOD CULTURE (AEROBIC/ANAEROBIC SET) Routine 02/27/2025 4:00 AM EDT XR CHEST 1 VIEW Timed 02/27/2025 2:37 AM EDT FUNGAL CULTURE, TISSUE AND DANY Routine 02/26/2025 10:10 AM EDT Chest wall abscess AFB CULTURE, NON RESPIRATORY SOURCE AND ACID FAST STAIN Routine 02/26/2025 10:10 AM EDT Chest wall abscess ROUTINE CULTURE AND GRAM STAIN Routine 02/26/2025 10:10 AM EDT Chest wall abscess ANAEROBIC CULTURE Routine 02/26/2025 10: 10 AM EDT Chest wall abscess POCT ARTERIAL BLOOD GAS GEM UNSOLICITED RESULTS Routine 02/26/2025 9:42 AM EDT ABSCESS CULTURE AND GRAM STAIN Routine 02/26/2025 9:34 AM EDT Chest wall abscess FUNGAL CULTURE, ROUTINE Routine 02/27/20 9:34 AM EDT Chest wall abscess ANAEROBIC CULTURE Routine 02/26/2025 9:3 4 AM EDT Chest wall abscess INCISION AND DRAINAGE, WOUND, STERNUM, WITH IRRIGATION, DEBRIDEMENT, AND SECONDARY CLOSURE 02/26/2025 8:28 AM EDT Chest wall abscess PREPARE RBC Routine 02/26/2025 8:12 AM EDT TYPE AND SCREEN Routine 02/25/2025 4:54 PM EDT WOUND CULTURE AND GRAM STAIN STAT 02/25/2025 4:46 AM EDT ED HIV 1/2 ANTIBODY/ANTIGEN SCREEN WITH REFLEX TO HIV I/II DIFFERENTIATION STAT 02/25/2025 3:18 AM EDT ED PROTOCOL HIV 1/2 ANTIBODY/ANTIGEN SCREEN W/REFLEX TO HIV 1/2 ANTIBODY DIFFERENTIATION STAT 02/25/2025 3:18 AM EDT BACTERIAL ID GRAM POSITIVE Routine 02/25/2025 3:18 AM EDT HEPATITIS C VIRUS (HCV) QUANTITATIVE PCR - ED STAT 02/25/2025 3:18 AM EDT HEPATITIS C ANTIBODY - ED W/REFLEX TO HCV QUANT PCR STAT 02/25/2025 3:18 AM EDT BLOOD CULTURE (AEROBIC/ANAEROBIC SET) STAT 02/25/2025 3:18 AM EDT BLOOD CULTURE (AEROBIC/ANAEROBIC SET) STAT 02/25/2025 3:18 AM EDT SEDIMENTATION RATE, AUTOMATED STAT 02/25/2025 3:18 AM EDT CBC WITH AUTO DIFFERENTIAL STAT 02/25/2025 3:18 AM EDT C-REACTIVE PROTEIN, PLASMA STAT 02/25/2025 3:18 AM EDT PHOSPHORUS, PLASMA STAT 02/25/2025 3: 18 AM EDT MAGNESIUM, PLASMA STAT 02/25/2025 3:1 8 AM EDT COMPREHENSIVE METABOLIC PANEL, PLASMA STAT 02/25/2025 3:18 AM EDT documented in this encounter Results * PICC SINGLE LUMEN (SMARTFORM LINK) (03/04/2025 4:49 PM EDT) Narrative Maxwell Roper RN - 03/04/2025 4:49 PM EDT Maxwell Roper RN 03/04/2025 4:50 PM Insert PICC line Date/Time: 03/04/2025 4:49 PM Performed by: Maxwell Roper RN Authorized by: Sherlyn Daniel MD Nunda Protocol: Verbal consent obtained?: Yes Written consent obtained?: Yes Risks and benefits: Risks, benefits and alternatives were discussed Consent given by: Patient Patient states understanding of procedure being performed: Yes Patient's understanding of procedure matches consent: Yes Procedure consent matches procedure scheduled: Yes Relevant documents present and verified: Yes Test results available and properly labeled: Yes Site marked: Yes Imaging studies available: Yes Patient identity confirmed: Arm band and verbally with patient Time out: Immediately prior to the procedure a time out was called Indications: Vascular access Local anesthetic: Lidocaine 1% without epinephrine Sedation: Patient sedated: No Preparation: Skin prepped with 2% chlorhexidine Skin prep agent dried: Skin prep agent completely dried prior to procedure Sterile barriers: All five maximal sterile barriers used - gloves, gown, cap, mask and large sterile sheet Hand hygiene: Hand hygiene performed prior to catheter insertion Orientation: Left Location (Adult): Basilic vein Site selection rationale: Non dominant arm. Best vein Patient position: Flat Catheter Lot #: [id number] Catheter bariatric coordinator: Bard Catheter placed: Single lumen Catheter size: 4 Fr Catheter trimmed length: 51 Catheter threaded length: 51 Vein placed in: SVC Catheter cm indwellin Catheter cm outside: 0 Placement confirmed by: Duong SolomonG technology Pre-procedure: Landmarks identified Ultrasound guidance: Yes Sterile ultrasound techniques: Sterile gel and sterile probe covers were used Number of attempts: 1 Post-procedure: Adhesive securement device and sterile access caps placed on each lumen Dressing applied: CHG tegaderm Assessment: Blood return through all ports and no pneumothorax on x-ray Patient tolerated the procedure well with no immediate complications.: Yes PICC kit educational material was given to the patient.: Yes Comments: All pertinent images were uploaded to PACS. us Sherlyn Daniel MD IV THERAPY ORDERABLES Final Re sult * Morphology (03/03/2025 2:11 AM EDT) RBC Morphology RBC Morphology Consistent with Indices and RDW LAB HEMATOLOGY METHOD 03/03/2025 3:14 AM EDT [facility] Platelet Estimate Platelet smear estimate consistent with automated count LAB HEMATOLOGY METHOD 03/03/2025 3:14 AM EDT [facility] Blood Venous blood specimen / Unknown Venipuncture / Unknown 03/03/2025 2:11 AM EDT 03/03/2025 2:25 AM EDT us Kelsie Carty APRN LAB BLOOD ORDERABLES Final R esult [facility] [address] [place] [address] * (ABNORMAL) Manual Differential (03/03/2025 2:11 AM EDT) Blasts % 0 % LAB HEMATOLOGY METHOD 03/03/2025 3:14 AM EDT [facility] Promyelocytes % 0 % LAB HEMATOLOGY METHOD 03/03/2025 3:14 AM EDT [facility] Myelocytes % 2 % LAB HEMATOLOGY METHOD 03/03/2025 3:14 AM EDT [facility] Metamyelocytes % 3 % LAB HEMATOLOGY METHOD 03/03/2025 3:14 AM EDT [facility] Neutrophils % 75 % LAB HEMATOLOGY METHOD 03/03/2025 3:14 AM EDT [facility] Lymphocytes % 14 % LAB HEMATOLOGY METHOD 03/03/2025 3:14 AM EDT [facility] Reactive Lymphocytes % 0 % LAB HEMATOLOGY METHOD 03/03/2025 3:14 AM EDT [facility] Monocytes % 3 % LAB HEMATOLOGY METHOD 03/03/2025 3:14 AM EDT [facility] Eosinophils % 3 % LAB HEMATOLOGY METHOD 03/03/2025 3:14 AM EDT [facility] Basophils % 0 % LAB HEMATOLOGY METHOD 03/03/2025 3:14 AM EDT [facility] Blasts Absolute 0.00 10*3/UL LAB HEMATOLOGY METHOD 03/03/2025 3:14 AM EDT [facility] Promyelocytes Absolute 0.00 10*3/uL LAB HEMATOLOGY METHOD 03/03/2025 3:14 AM EDT [facility] Myelocytes Absolute 0.21 10*3/uL LAB HEMATOLOGY METHOD 03/03/2025 3:14 AM EDT [facility] Metamyelocytes Absolute 0.31 10*3/uL LAB HEMATOLOGY METHOD 03/03/2025 3:14 AM EDT [facility] Neutrophils Absolute 7.72(H) 1.60 - 6.10 10*3/uL LAB HEMATOLOGY METHOD 03/03/2025 3:14 AM EDT [facility] Lymphocytes Absolute 1.44 1.20 - 3.90 10*3/uL LAB HEMATOLOGY METHOD 03/03/2025 3:14 AM EDT [facility] Reactive Lymphocytes Absolute 0.00 10*3/uL LAB HEMATOLOGY METHOD 03/03/2025 3:14 AM EDT [facility] Monocytes Absolute 0.31 0.30 - 0.90 10*3/uL LAB HEMATOLOGY METHOD 03/03/2025 3:14 AM EDT [facility] Eosinophils Absolute 0.31 0.00 - 0.50 10*3/uL LAB HEMATOLOGY METHOD 03/03/2025 3:14 AM EDT [facility] Basophils Absolute 0.00 0.00 - 0.10 10*3/uL LAB HEMATOLOGY METHOD 03/03/2025 3:14 AM EDT [facility] Blood Venous blood specimen / Unknown Venipuncture / Unknown 03/03/2025 2:11 AM EDT 03/03/2025 2:25 AM EDT us Kelsie Carty APRN LAB BLOOD ORDERABLES Final R esult [facility] [address] [place] [address] * (ABNORMAL) Hepatic function panel (03/03/2025 2:11 AM EDT) Conjugated Bilirubin, Plasma <0.2 <=0.3 mg/dL 03/03/2025 2:55 AM EDT [facility] Comment:Hemolyzed, result ma y be falsely decreased. Alkaline Phosphatase, Plasma 99 40 - 115 U/L 03/03/2025 2:55 AM EDT [facility] Total Bilirubin, Plasma 0.3 0.2 - 1.1 mg/dL 03/03/2025 2:55 AM EDT [facility] Albumin, Plasma 3.3(L) 3.5 - 5.2 g/dL 03/03/2025 2:55 AM EDT [facility] Total Protein 7.9 6.3 - 7.9 g/dL 03/03/2025 2:55 AM EDT [facility] ALT, Plasma 36 10 - 50 U/L 03/03/2025 2:55 AM EDT [facility] AST, Plasma 46 10 - 50 U/L 03/03/2025 2:55 AM EDT [facility] Comment:Hemolyzed, result ma y be falsely increased. Blood Venous blood specimen / Unknown Venipuncture / Unknown 03/03/2025 2:11 AM EDT 03/03/2025 2:23 AM EDT Kelsie Carty APRN LAB BLOOD ORDERABLES Final R esult Performing Organization Address City/[facility]/ZIP Co de Phone Number [facility] [address] [place] [address] * Magnesium, Plasma (03/03/2025 2:11 AM EDT) Magnesium, Plasma 2.2 1.9 - 2.4 mg/dL 03/03/2025 2:55 AM EDT [facility] Blood Venous blood specimen / Unknown Venipuncture / Unknown 03/03/2025 2:11 AM EDT 03/03/2025 2:23 AM EDT Kelsie Carty BASKET PERSON LAB BLOOD ORDERABLES Final R esult [facility] [address] [place] [address] * CBC and Differential (03/03/2025 2:11 AM EDT) WBC Count 10.29 3.70 - 10.30 10*3/uL LAB HEMATOLOGY METHOD 03/03/2025 3:15 AM EDT [facility] RBC Count 5.48 4.60 - 6.10 10*6/uL LAB HEMATOLOGY METHOD 03/03/2025 3:15 AM EDT [facility] HGB 15.6 13.7 - 17.5 g/dL LAB HEMATOLOGY METHOD 03/03/2025 3:15 AM EDT [facility] HCT 47.6 40.0 - 51.0 % LAB HEMATOLOGY METHOD 03/03/2025 3:15 AM EDT [facility] Platelet Count 329 155 - 369 10*3/uL LAB HEMATOLOGY METHOD 03/03/2025 3:15 AM EDT [facility] MCV 87 79 - 98 fL LAB HEMATOLOGY METHOD 03/03/2025 3:15 AM EDT [facility] MCH 28.5 26.0 - 32.0 pg LAB HEMATOLOGY METHOD 03/03/2025 3:15 AM EDT [facility] MCHC 32.8 30.7 - 35.5 g/dL LAB HEMATOLOGY METHOD 03/03/2025 3:15 AM EDT [facility] RDW 12.9 11.5 - 14.5 % LAB HEMATOLOGY METHOD 03/03/2025 3:15 AM EDT [facility] MPV 9.1 8.8 - 12.5 fL LAB HEMATOLOGY METHOD 03/03/2025 3:15 AM EDT [facility] nRBC 0.0 <=0.0 per 100 WBCs LAB HEMATOLOGY METHOD 03/03/2025 3:15 AM EDT [facility] Differential Type Manual LAB HEMATOLOGY METHOD 03/03/2025 3:15 AM EDT [facility] Blood Venous blood specimen / Unknown Venipuncture / Unknown 03/03/2025 2:11 AM EDT 03/03/2025 2:25 AM EDT Narrative [facility] - 03/03/2025 3:15 AM EDT Therapeutic decision making should be based on absolute values, rather than percentages. The previously reported component Neutrophils % is no longer being reported.The previously reported component Lymphocytes % is no longer being reported.The previously reported component Monocytes % is no longer being reported.The previously reported component Eosinophils % is no longer being reported.The previously reported component Basophils % is no longer being reported.The previously reported component Immature Granulocytes % is no longer being reported.The previously reported component Absolute Neutrophils is no longer being reported.The previously reported component Absolute Lymphocytes is no longer being reported.The previously reported component Absolute Monocytes is no longer being reported.The previously reported component Absolute Eosinophils is no longer being reported.The previously reported component Absolute Basophils is no longer being reported.The previously reported component Absolute Immature Granulocytes is no longer being reported. Kelsie Carty APRN LAB BLOOD ORDERABLES Final R esult Performing Organization Address City/[facility] [place] [address] * Blood Culture (Aerobic/Anaerobet Set) (03/03/2025 2:11 AM EDT) Culture No growth at day 5 GEENA 03/08/2025 4:02 AM EDT [facility] Blood Structure of antecubital vein / Unknown Venipuncture / Unknown 03/03/2025 2:11 AM EDT 03/03/2025 3:04 AM EDT Narrative [facility] - 03/08/2025 4:02 AM EDT Low blood volume submitted, results may be compromised Kelsie Carty APRN LAB MICROBIOLOGY - GENERAL O RDERABLES Final Result Performing Organization Address City/[facility]/ZIP Co de Phone Number [facility] [address] [place] [address] * Blood Culture (Aerobic/Anaerobet Set) (03/03/2025 2:11 AM EDT) Culture No growth at day 5 GEENA 03/08/2025 4:02 AM EDT [facility] Blood Venous blood specimen / Unknown Venipuncture / Unknown 03/03/2025 2:11 AM EDT 03/03/2025 3:03 AM EDT us Kelsie Carty APRN LAB MICROBIOLOGY - GENERAL O RDERABLES Final Result [facility] [address] [place] [address] * (ABNORMAL) CBC W/O Differential (03/01/2025 3:55 AM EDT) WBC Count 7.81 3.70 - 10.30 10*3/uL LAB HEMATOLOGY METHOD 03/01/2025 4:12 AM EDT [facility] RBC Count 4.51(L) 4.60 - 6.10 10*6/uL LAB HEMATOLOGY METHOD 03/01/2025 4:12 AM EDT [facility] HGB 12.8(L) 13.7 - 17.5 g/dL LAB HEMATOLOGY METHOD 03/01/2025 4:12 AM EDT [facility] HCT 40.5 40.0 - 51.0 % LAB HEMATOLOGY METHOD 03/01/2025 4:12 AM EDT [facility] Platelet Count 292 155 - 369 10*3/uL LAB HEMATOLOGY METHOD 03/01/2025 4:12 AM EDT [facility] MCV 90 79 - 98 fL LAB HEMATOLOGY METHOD 03/01/2025 4:12 AM EDT [facility] MCH 28.4 26.0 - 32.0 pg LAB HEMATOLOGY METHOD 03/01/2025 4:12 AM EDT [facility] MCHC 31.6 30.7 - 35.5 g/dL LAB HEMATOLOGY METHOD 03/01/2025 4:12 AM EDT [facility] RDW 13.0 11.5 - 14.5 % LAB HEMATOLOGY METHOD 03/01/2025 4:12 AM EDT [facility] MPV 9.5 8.8 - 12.5 fL LAB HEMATOLOGY METHOD 03/01/2025 4:12 AM EDT [facility] nRBC 0.0 <=0.0 per 100 WBCs LAB HEMATOLOGY METHOD 03/01/2025 4:12 AM EDT [facility] Blood Venous blood specimen / Unknown Venipuncture / Unknown 03/01/2025 3:55 AM EDT 03/01/2025 4:04 AM EDT us Catalina Cuba MD LAB BLOOD ORDERABLES Final Result [facility] [address] [place] [address] * (ABNORMAL) Basic metabolic panel (03/01/2025 3:55 AM EDT) Glucose, Plasma 94 74 - 99 mg/dL 03/01/2025 4:37 AM EDT [facility] BUN, Plasma 14 7 - 21 mg/dL 03/01/2025 4:37 AM EDT [facility] Creatinine, Plasma 0.92 0.70 - 1.20 mg/dL 03/01/2025 4:37 AM EDT [facility] BUN/Creatinine Ratio 15 03/01/2025 4:37 AM EDT [facility] Sodium, Plasma 140 136 - 145 mmol/L 03/01/2025 4:37 AM EDT [facility] Potassium, Plasma 4.4 3.6 - 4.9 mmol/L 03/01/2025 4:37 AM EDT [facility] Chloride, Plasma 105 97 - 107 mmol/L 03/01/2025 4:37 AM EDT [facility] CO2, Plasma 25 22 - 29 mmol/L 03/01/2025 4:37 AM EDT [facility] Anion Gap 10 6 - 16 mmol/L 03/01/2025 4:37 AM EDT [facility] Total Calcium, Plasma 8.8(L) 8.9 - 10.2 mg/dL 03/01/2025 4:37 AM EDT [facility] eGFRcr 110.6 mL/min/1.7 3m*2 03/01/2025 4:37 AM EDT [facility] Comment:Reported eGFRcr in m L/min/1.73m2 is based the CKD-EPI 2020 equation that does not use a race coefficient. Blood Venous blood specimen / Unknown Venipuncture / Unknown 03/01/2025 3:55 AM EDT 03/01/2025 4:04 AM EDT us Catalina Cuba MD LAB BLOOD ORDERABLES Final Result Performing Organization Address [facility] [place] [address] * Blood Culture (Aerobic/Anaerobet Set) (03/01/2025 3:45 AM EDT) Culture No growth at day 5 GEENA 03/06/2025 5:01 AM EDT [facility] Blood Venous blood specimen / Unknown Venipuncture / Unknown 03/01/2025 3:45 AM EDT 03/01/2025 4:45 AM EDT us Kelsie Carty APRN LAB MICROBIOLOGY - GENERAL O RDERABLES Final Result Performing Organization Address [facility] [place] [address] * Blood Culture (Aerobic/Anaerobet Set) (03/01/2025 3:30 AM EDT) Culture No growth at day 5 GEENA 03/06/2025 5:01 AM EDT [facility] Blood Venous blood specimen / Unknown Venipuncture / Unknown 03/01/2025 3:30 AM EDT 03/01/2025 4:45 AM EDT us Kelsie Carty APRN LAB MICROBIOLOGY - GENERAL O RDERABLES Final Result Performing Organization Address City/[facility] [place] [address] * Magnesium (02/28/2025 4:03 AM EDT) Magnesium, Plasma 2.2 1.9 - 2.4 mg/dL 02/28/2025 4:37 AM EDT [facility] Blood Venous blood specimen / Unknown Venipuncture / Unknown 02/28/2025 4:03 AM EDT 02/28/2025 4:10 AM EDT us Sherlyn Daniel MD LAB BLOOD ORDERABLES Final Res ult [facility] [address] [place] [address] * (ABNORMAL) CBC W/O Differential (02/28/2025 4:03 AM EDT) WBC Count 7.50 3.70 - 10.30 10*3/uL LAB HEMATOLOGY METHOD 02/28/2025 4:26 AM EDT [facility] RBC Count 4.59(L) 4.60 - 6.10 10*6/uL LAB HEMATOLOGY METHOD 02/28/2025 4:26 AM EDT [facility] HGB 13.1(L) 13.7 - 17.5 g/dL LAB HEMATOLOGY METHOD 02/28/2025 4:26 AM EDT [facility] HCT 40.6 40.0 - 51.0 % LAB HEMATOLOGY METHOD 02/28/2025 4:26 AM EDT [facility] Platelet Count 252 155 - 369 10*3/uL LAB HEMATOLOGY METHOD 02/28/2025 4:26 AM EDT [facility] MCV 89 79 - 98 fL LAB HEMATOLOGY METHOD 02/28/2025 4:26 AM EDT [facility] MCH 28.5 26.0 - 32.0 pg LAB HEMATOLOGY METHOD 02/28/2025 4:26 AM EDT [facility] MCHC 32.3 30.7 - 35.5 g/dL LAB HEMATOLOGY METHOD 02/28/2025 4:26 AM EDT [facility] RDW 13.2 11.5 - 14.5 % LAB HEMATOLOGY METHOD 02/28/2025 4:26 AM EDT [facility] MPV 9.8 8.8 - 12.5 fL LAB HEMATOLOGY METHOD 02/28/2025 4:26 AM EDT [facility] nRBC 0.0 <=0.0 per 100 WBCs LAB HEMATOLOGY METHOD 02/28/2025 4:26 AM EDT [facility] Blood Venous blood specimen / Unknown Venipuncture / Unknown 02/28/2025 4:03 AM EDT 02/28/2025 4:12 AM EDT Sherlyn Daniel MD LAB BLOOD ORDERABLES Final Res ult [facility] [address] [place] [address] * (ABNORMAL) Basic metabolic panel (02/28/2025 4:03 AM EDT) Glucose, Plasma 110(H) 74 - 99 mg/dL 02/28/2025 4:37 AM EDT [facility] BUN, Plasma 18 7 - 21 mg/dL 02/28/2025 4:37 AM EDT [facility] Creatinine, Plasma 1.15 0.70 - 1.20 mg/dL 02/28/2025 4:37 AM EDT [facility] BUN/Creatinine Ratio 16 02/28/2025 4:37 AM EDT [facility] Sodium, Plasma 136 136 - 145 mmol/L 02/28/2025 4:37 AM EDT [facility] Potassium, Plasma 3.8 3.6 - 4.9 mmol/L 02/28/2025 4:37 AM EDT [facility] Chloride, Plasma 104 97 - 107 mmol/L 02/28/2025 4:37 AM EDT [facility] CO2, Plasma 24 22 - 29 mmol/L 02/28/2025 4:37 AM EDT [facility] Anion Gap 8 6 - 16 mmol/L 02/28/2025 4:37 AM EDT [facility] Total Calcium, Plasma 8.6(L) 8.9 - 10.2 mg/dL 02/28/2025 4:37 AM EDT [facility] eGFRcr 84.6 mL/min/1.7 3m*2 02/28/2025 4:37 AM EDT [facility] Comment:Reported eGFRcr in m L/min/1.73m2 is based the CKD-EPI 2020 equation that does not use a race coefficient. Blood Venous blood specimen / Unknown Venipuncture / Unknown 02/28/2025 4:03 AM EDT 02/28/2025 4:10 AM EDT Sherlyn Daniel MD LAB BLOOD ORDERABLES Final Res ult [facility] [address] [place] [address] * PERIPHERAL IV (SMARTFORM LINK) (02/27/2025 6:13 PM EDT) Narrative Maxwell Roper RN - 02/27/2025 6:13 PM EDT Maxwell Roper RN 02/27/2025 6:13 PM Insert peripheral IV Performed by: Maxwell Roper RN Authorized by: Sherlyn Daniel MD Hand hygiene: Hand hygiene performed prior to insertion Inserted using aseptic techniques: Yes Preparation: Skin prepped with chg Orientation: Left, anterior and lower Location: Forearm Catheter placed: Peripheral IV Catheter size: 20g/2.00in Line Technique: Ultrasound Guidance Number of attempts: 1 IV flushes: Without difficulty and positive blood return noted and IV luer locked Patient tolerance: Patient tolerated the procedure well and there were no complications Patient comfort measures used: Distraction and position of comfort IV site covered with: Transparent semipermeable dressing Sherlyn Daniel MD IV THERAPY ORDERABLES Final Re sult * ECHO, ADULT TRANSTHORACIC COMPLETE (02/27/2025 10:50 AM EDT) BSA 2.45 m2 [facility] Height 188.0 [facility] Weight 119.8 [facility] LVIDd 46 mm [facility] LVIDs 31 mm [facility] IVSd 9 mm [facility] LVPWd 9 mm [facility] LV MASS(C)D 137 g [facility] CV ECHO LV MASS INDEX 56 g/m2 [facility] LV RWT 0.39 mm [facility] LVOT diam 24 mm [facility] LVOT AREA 4.5 cm2 [facility] MV E Vmax 94.3 cm/s [facility] MV A Vmax 44.0 cm/s [facility] MV E/A 2.1 cm/s [facility] TR Vmax 231.0 cm/s [facility] LA dimension 38 mm [facility] RV s' Rodríguez 15.2 cm/s [facility] TAPSE 21 mm [facility] TR Max PG 21 mmHG [facility] MV dec time 220 ms [facility] MV P1/2t 64 ms [facility] MVA(P1/2t) 3.4 cm2 [facility] TV V2 Vmax 159.0 cm/s [facility] TV MG 3 mmHg [facility] TV max PG 10 mmHg [facility] Ao Root Diam 31 mm [facility] Asc Ao Diam 27 mm [place] ISCV TV V2 VTI 39.5 cm [facility] LAV(MOD-4ch) 62 mL [facility] RA MOD 4Ch 69 mL [facility] GABBI 28 mL/m2 [facility] RV base 59 mm [facility] RV Mid 58 mm [facility] RV Length 93 mm [facility] LAV(MOD-bp) Indexed 19 mL/m2 [facility] LAV(MOD-2ch) 33 mL [facility] IVC Max Size 26 mm [facility] RVSP 36 mmHg [facility] RAP systole 15 mmHg [facility] MPA diam 24 mm [facility] MPA area 4.5 cm2 [facility] LV EDV(MOD-4ch) 141 mL [facility] LV ESV(MOD4ch) 61 mL [facility] ISCV EF(MOD-sp4) 57 % [facility] LV EDV(MOD-2ch) 152 mL [facility] ISCV EDV(MOD-bp) 147 mL [facility] LV ESV(MOD2ch) 60 mL [facility] ISCV EF(MOD-sp2) 61 % [facility] ESV(MOD-bp) 61 mL [facility] ISC[facility] EF(MOD-bp) 59 % [facility] LVLs ap2 8.0 mm [facility] LV Lat e' Velocity 19.7 cm/s [facility] LV Sept e' Rodríguez 13.7 cm/s [facility] Lat E/e' 4.8 [facility] Sep E/e' 6.9 [facility] Avg E/e' 5.8 [facility] RV BRYCE 48.4 cm2 [facility] RV TARAH 29.6 cm2 [facility] RV FAC_phl 39 % [facility] Anatomical Region Laterality Modality Echocardiography Narrative 02/27/2025 12:34 PM EDT Left Ventricle: The left ventricular systolic function is normal. The LVEF as measured by biplane volume is 59%. The diastolic function is abnormal. The left ventricular filling pressure is normal. No regional wall motion abnormalities are seen. Right Ventricle: The right ventricle is moderately dilated. The right ventricular systolic function is normal. The estimated global right ventricular systolic function based upon the focused RV view fractional area change is normal (>/=35%). Unable to estimate the right ventricular systolic pressure (RVSP) due to severe tricuspid regurgitation. Tricuspid Valve: The leaflets appear thickened. 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 There appears to be restricted motion/malcoaptation involving the septal leaflet.. There is no tricuspid valve vegetation. There is severe tricuspid regurgitation. There is systolic flow reversal of the hepatic veins consistent with significant tricuspid valve regurgitation. Right Atrium: The right atrial volume index is normal (18-32mL/m2). Chiari network (normal variant) is noted. IVC/SVC: Based on the IVC size and respiratory variation, the estimated right atrial pressure is 15mmHg. There is no recent study available for direct [id number] comparison. Left Ventricle Based on the linear dimension and/or 2D volumes, the left ventricle is normal in size. There is normal left ventricular myocardial thickness and mass. No left ventricular mass or thrombus is seen. The left ventricular systolic function is normal. The LVEF as measured by biplane volume is 59%. The diastolic function is abnormal. The left ventricular filling pressure is normal. No regional wall motion abnormalities are seen. Right Ventricle The right ventricle is moderately dilated. The right ventricular systolic function is normal. The estimated global right ventricular systolic function based upon the focused RV view fractional area change is normal (>/=35%). Unable to estimate the right ventricular systolic pressure (RVSP) due to severe tricuspid regurgitation. Left Atrium The left atrial size is normal with an indexed volume of 16-34 mL/m2. The interatrial septum is intact with no evidence for an atrial septal defect. Right Atrium The right atrial volume index is normal (18-32mL/m2). Chiari network (normal variant) is noted. IVC/SVC Based on the IVC size and respiratory variation, the estimated right atrial pressure is 15mmHg. Mitral Valve The mitral valve leaflets are normal in appearance with no evidence of mitral valve prolapse. There is no mitral valve vegetation. There is trace mitral regurgitation. There is no mitral stenosis. Tricuspid Valve The leaflets appear thickened. 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 There appears to be restricted motion/malcoaptation involving the septal leaflet.. There is no tricuspid valve vegetation. There is severe tricuspid regurgitation. There is systolic flow reversal of the hepatic veins consistent with significant tricuspid valve regurgitation. Mean gradient is 3 mmHg at a heart rate of 66 bpm. Aortic Valve The aortic valve appears to be trileaflet. There is no aortic valve vegetation. There is no valvular regurgitation. There is no hemodynamically significant valvular aortic stenosis. Pulmonic Valve The pulmonic valve was not well visualized. There is trace pulmonic regurgitation. There is no pulmonic stenosis. Pericardium Evidence of epicardial fat. No pericardial effusion. Great Vessels The aortic root is normal in size. The sinus of Valsalva (aortic root) diameter is 31 mm by leading edge to leading edge method. In the maximally visualized portion, the ascending aorta appears normal in size. The ascending aorta diameter is 27 mm. In the maximally visualized portion, the aortic arch appears normal in size. The main pulmonary artery is normal in size. The main pulmonary artery diameter is 24 mm. Study Details A complete transthoracic echocardiogram using two-dimensional (2D), m-mode, color and spectral flow Doppler imaging was performed. The study was technically difficult. The study was technically difficult due to patient's clinical status. Height: 188.0 cm. Weight: 119.8 kg. BSA: 2.45 m2. S/P Chest washout, removal of sternal plates on 02/26. Study Recommendation There is no recent study available for direct ibkx-ur-[id number] comparison. Wall Scoring Baseline Score Index: 1.00 The left ventricular wall motion is normal. us Sherlyn Daniel MD CV ECHO PROCEDURES Final Resul t * Vancomycin, Peak, Plasma Please draw ~2 hours after 0650 dose of vancomycin finishes infusing. Consider obtaining level via peripheral stick. If peripheral stick is not feasible, please ensure that line is flushed well prior to drawing level. Than... (02/27/2025 10:46 AM EDT) Vancomycin, Peak, Plasma 25.5 20.0 - 40.0 ug/mL 02/27/2025 11:21 AM EDT [facility] Blood Venous blood specimen / Unknown Venipuncture / Unknown 02/27/2025 10:46 AM EDT 02/27/2025 10:52 AM EDT Narrative [facility] - 02/27/2025 11:21 AM EDT Therapeutic Peak level: 20-40ug/mL Supra-therapeutic Peak level: >40 ug/mL us Alejandro AARON LAB BLOOD ORDERABLES Final R esult [facility] [address] [place] [address] * (ABNORMAL) Lipid panel (02/27/2025 4:33 AM EDT) Cholesterol, Plasma 108 <200 mg/dL 02/27/2025 5:14 AM EDT [facility] Comment: Cholesterol Reference Range (age >17 years): Desirable <200 mg/dL Borderline 200 to 239 mg/dL Undesirable >239 mg/dL HDL 28(L) >=40 mg/dL 02/27/2025 5:14 AM EDT [facility] Comment: HDL Cholesterol Reference Ranges (age >17 years): Female, acceptable > or = 50 mg/dL Male, acceptable > or = 40 mg/dL Triglycerides, Plasma 94 <150 mg/dL 02/27/2025 5:14 AM EDT [facility] Comment: Triglyceride Reference Range (age >17 years): Desirable: <150 mg/dL Borderline high: 150 to 199 mg/dL High: 200 to 499 mg/dL Very high: >499 mg/dL Increased risk of pancreatitis: >1000 mg/dL Cholesterol/HDL Ratio 4 02/27/2025 5:14 AM EDT [facility] LDL, Calculated 62 <100 mg/dL 5:14 AM EDT [facility] Comment: LDL Cholesterol Reference Range (age >17 years): Optimal: <100 mg/dL Near or above optimal: 100 - 129 mg/dL Borderline high: 130 - 159 mg/dL High: 160 - 189 mg/dL Very high: >189 mg/dL LDL Cholesterol Reference Range (age <18 years): Desirable: <110 mg/dL Borderline: 110 - 129 mg/dL Undesirable: >130 mg/dL LDL Cholesterol is calculated using the Zamorano/NIH equation. Fasting greater than or equal to 12 hours? No 02/27/2025 5:14 AM EDT [facility] Blood Venous blood specimen / Unknown Venipuncture / Unknown 02/27/2025 4:33 AM EDT 02/27/2025 4:42 AM EDT Alejandro AARON LAB BLOOD ORDERABLES Final R esult Performing Organization Address [facility] Co de Phone Number [facility] [address] [place] [address] * Hemoglobin A1c (02/27/2025 4:33 AM EDT) Hemoglobin A1c 5.4 <5.7 % 02/27/2025 7:06 AM EDT [facility] Blood Venous blood specimen / Unknown Venipuncture / Unknown 02/27/2025 4:33 AM EDT 02/27/2025 4:45 AM EDT Narrative [facility] - 02/27/2025 7:06 AM EDT HA1C Interpretive Data: Diagnosis of Diabetes: Diabetic > or = 6.5% Pre-diabetic 5.7 to 6.4% Non-diabetic < or = 5.6% Glycemic Targets for Type I and Type II Diabetics: Non- Adults <7.0% Adults <6.0% Children and Adolescents <7.5% Source: [place] [employer]. Standards of medical care in diabetes,2017. Diabetes Care.2017:40 (suppl 1):S1-S135. Alejandro AARON LAB BLOOD ORDERABLES Final R esult Performing Organization Address City/[facility] Co de Phone Number [facility] [address] [place] [address] * (ABNORMAL) Basic metabolic panel (02/27/2025 4:33 AM EDT) Glucose, Plasma 128(H) 74 - 99 mg/dL 02/27/2025 5:14 AM EDT [facility] BUN, Plasma 18 7 - 21 mg/dL 02/27/2025 5:14 AM EDT [facility] Creatinine, Plasma 1.01 0.70 - 1.20 mg/dL 02/27/2025 5:14 AM EDT [facility] BUN/Creatinine Ratio 18 02/27/2025 5:14 AM EDT [facility] Sodium, Plasma 135(L) 136 - 145 mmol/L 02/27/2025 5:14 AM EDT [facility] Potassium, Plasma 4.6 3.6 - 4.9 mmol/L 02/27/2025 5:14 AM EDT [facility] Chloride, Plasma 101 97 - 107 mmol/L 02/27/2025 5:14 AM EDT [facility] CO2, Plasma 24 22 - 29 mmol/L 02/27/2025 5:14 AM EDT [facility] Anion Gap 10 6 - 16 mmol/L 02/27/2025 5:14 AM EDT [facility] Total Calcium, Plasma 9.2 8.9 - 10.2 mg/dL 02/27/2025 5:14 AM EDT [facility] eGFRcr 98.8 mL/min/1.7 3m*2 02/27/2025 5:14 AM EDT [facility] Comment:Reported eGFRcr in m L/min/1.73m2 is based the CKD-EPI 2020 equation that does not use a race coefficient. Blood Venous blood specimen / Unknown Venipuncture / Unknown 02/27/2025 4:33 AM EDT 02/27/2025 4:42 AM EDT us Sherlyn Daniel MD LAB BLOOD ORDERABLES Final Res ult [facility] [address] [place] [address] * (ABNORMAL) CBC W/O Differential (02/27/2025 4:33 AM EDT) WBC Count 9.62 3.70 - 10.30 10*3/uL LAB HEMATOLOGY METHOD 02/27/2025 4:53 AM EDT [facility] RBC Count 4.58(L) 4.60 - 6.10 10*6/uL LAB HEMATOLOGY METHOD 02/27/2025 4:53 AM EDT [facility] HGB 13.1(L) 13.7 - 17.5 g/dL LAB HEMATOLOGY METHOD 02/27/2025 4:53 AM EDT [facility] HCT 40.8 40.0 - 51.0 % LAB HEMATOLOGY METHOD 02/27/2025 4:53 AM EDT [facility] Platelet Count 247 155 - 369 10*3/uL LAB HEMATOLOGY METHOD 02/27/2025 4:53 AM EDT [facility] MCV 89 79 - 98 fL LAB HEMATOLOGY METHOD 02/27/2025 4:53 AM EDT [facility] MCH 28.6 26.0 - 32.0 pg LAB HEMATOLOGY METHOD 02/27/2025 4:53 AM EDT [facility] MCHC 32.1 30.7 - 35.5 g/dL LAB HEMATOLOGY METHOD 02/27/2025 4:53 AM EDT [facility] RDW 13.1 11.5 - 14.5 % LAB HEMATOLOGY METHOD 02/27/2025 4:53 AM EDT [facility] MPV 10.4 8.8 - 12.5 fL LAB HEMATOLOGY METHOD 02/27/2025 4:53 AM EDT [facility] nRBC 0.0 <=0.0 per 100 WBCs LAB HEMATOLOGY METHOD 02/27/2025 4:53 AM EDT [facility] Blood Venous blood specimen / Unknown Venipuncture / Unknown 02/27/2025 4:33 AM EDT 02/27/2025 4:45 AM EDT us Sherlyn Daniel MD LAB BLOOD ORDERABLES Final Res ult [facility] [address] [place] [address] * Blood Culture (Aerobic/Anaerobet Set) (02/27/2025 4:30 AM EDT) Culture No growth at day 5 GEENA 03/04/2025 5:01 AM EDT [facility] Blood Venous blood specimen / Unknown Venipuncture / Unknown 02/27/2025 4:30 AM EDT 02/27/2025 4:47 AM EDT us Sherman Gonzáles MD LAB MICROBIOLOGY - GENERAL O RDERABLES Final Result [facility] [address] [place] [address] * Blood Culture (Aerobic/Anaerobet Set) (02/27/2025 4:00 AM EDT) Culture No growth at day 5 GEENA 03/04/2025 5:01 AM EDT [facility] Blood Venous blood specimen / Unknown Venipuncture / Unknown 02/27/2025 4:00 AM EDT 02/27/2025 4:47 AM EDT Sherman Gonzáles MD LAB MICROBIOLOGY - GENERAL O RDERABLES Final Result Performing Organization Address [facility]/ZIP Co de Phone Number [facility] [address] [place] [address] * XR Chest 1 View (02/27/2025 2:37 AM EDT) Anatomical Region Laterality Modality Chest Digital Radiogra phy Impressions 02/27/2025 8:56 AM EDT Small left pleural effusion. CRITICAL RESULT: No. COMMUNICATION: Per this written report. By electronically signing this report, I, the attending physician, attest that I have personally reviewed the images/data for the above examination(s) and agree with the final edited report. Drafted by EILEEN Alan on 02/27/2025 8:33 AM Final report signed by Cj Paulino MD on 02/27/2025 8:56 AM Narrative 02/27/2025 8:56 AM EDT CLINICAL INDICATION: post op TECHNIQUE: XR CHEST 1 VIEW COMPARISON: None. FINDINGS: Small left pleural effusion. Bilateral basilar atelectasis, more on the left side. No pneumothorax. Pulmonary vascular congestion. Procedure Note Cj Paulino MD - 02/27/2025 CLINICAL INDICATION: post op TECHNIQUE: XR CHEST 1 VIEW COMPARISON: None. FINDINGS: Small left pleural effusion. Bilateral basilar atelectasis, more on theleft side. No pneumothorax. Pulmonary vascular congestion. IMPRESSION: Small left pleural effusion. CRITICAL RESULT: No. COMMUNICATION: Per this written report. By electronically signing this report, I, the attending physician, attestthat I have personally reviewed the images/data for the aboveexamination(s) and agree with the final edited report. Drafted by EILEEN Alan on 02/27/2025 8:33 AM Final report signed by Cj Paulino MD on 02/27/2025 8:56 AM Sherlyn Daniel MD IMG XR PROCEDURES Final Result * Fungal Culture, Tissue and DANY (02/26/2025 10:10 AM EDT) Culture Reading Mycological 4 Weeks No Fungal Growth at 4 Weeks 03/27/2025 8:06 AM EDT [facility] DANY Source not suitable for smear 03/27/2025 8:06 AM EDT [facility] Foreign Body Bone structure of sternum / Unknown 02/26/2025 10:10 AM EDT 02/26/2025 11:21 AM EDT Comment:Pre-op diagnosis: Chest wall abscess [L02.213] Sherlyn Daniel MD LAB MICROBIOLOGY - GENERAL ORD ERABLES Final Result [facility] [address] [place] [address] * (ABNORMAL) Routine Culture and Gram Stain (02/26/2025 10:10 AM EDT) Culture Light Growth 03/01/2025 3:23 PM EDT [facility] Culture Staphylococcus aureus(A) GEENA 03/01/2025 3:23 PM EDT [facility] Foreign Body Bone structure of sternum / Unknown 02/26/2025 10:10 AM EDT 02/26/2025 11:21 AM EDT Comment:Pre-op diagnosis: Chest wall abscess [L02.213] Narrative Organism Antibiotic Method Susceptibility Staphylococcus aureus Clindamycin GEENA <=0.5 ug/ml: Susceptible Staphylococcus aureus Daptomycin GEENA <=1 ug/ml: Susceptible Staphylococcus aureus Erythromycin GEENA <=0.5 ug/ml: Susceptible Staphylococcus aureus Gentamicin GEENA <=1 ug/ml: Susceptible Staphylococcus aureus Linezolid GEENA <=1 ug/ml: Susceptible Staphylococcus aureus Minocycline GEENA <=1 ug/ml: Susceptible Staphylococcus aureus Oxacillin GEENA 0.5 ug/ml: Susceptible Staphylococcus aureus Penicillin G GEENA >1 ug/ml: Resistant Staphylococcus aureus Tetracycline GEENA <=0.5 ug/ml: Susceptible Staphylococcus aureus Trimethoprim/Sulfa methoxazo le GEENA <=0.5/9.5 ug/ml: Susceptible Staphylococcus aureus Vancomycin GEENA <=0.5 ug/ml: Susceptible Sherlyn Daniel MD LAB MICROBIOLOGY - GENERAL ORD ERABLES Final Result Performing Organization Address City/[facility]/ZIP Co de Phone Number [facility] [address] [place] [address] * Anaerobic Culture (02/26/2025 10:10 AM EDT) Culture No anaerobes isolated 03/03/2025 5:50 AM EDT [facility] Foreign Body Bone structure of sternum / Unknown 02/26/2025 10:10 AM EDT 02/26/2025 11:21 AM EDT Comment:Pre-op diagnosis: Chest wall abscess [L02.213] Sherlyn Daniel MD LAB MICROBIOLOGY - GENERAL ORD ERABLES Final Result Performing Organization Address [facility] Co de Phone Number [facility] [address] [place] [address] * (ABNORMAL) POCT arterial blood gas gem (02/26/2025 9:42 AM EDT) pH, Arterial 7.42 7.35 - 7.45 02/26/2025 9:44 AM EDT [facility] pCO2, Arterial 41 32 - 45 mm Hg 02/26/2025 9:44 AM EDT [facility] pO2, Arterial 105 83 - 108 mm Hg 02/26/2025 9:44 AM EDT [facility] SO2, Arterial 99(H) 94 - 98 % 02/26/2025 9:44 AM EDT [facility] Base Excess, Arterial 1.9 -2 - 3 mmol/L 02/26/2025 9:44 AM [facility] HCO3, Arterial 26.6(H) 22 - 26 mmol/L 02/26/2025 9:44 AM [facility] Total Hemoglobin, Arterial, Whole Blood 13.6(L) 13.7 - 17.5 g/dL 02/26/2025 9:44 AM [facility] Hematocrit, Arterial 41.0 40 - 51.0 % 02/26/2025 9:44 AM [facility] Sodium, Arterial 135(L) 136 - 145 mmol/L 02/26/2025 9:44 AM [facility] Potassium, Arterial 4.1 3.6 - 4.9 mmol/L 02/26/2025 9:44 AM [facility] Chloride, Whole Blood 104 97 - 107 mmol/L 02/26/2025 9:44 AM [facility] Glucose, Arterial 106(H) 74 - 99 mg/dL 02/26/2025 9:44 AM [facility] Ionized Calcium, Arterial 4.7 4.6 - 5.1 mg/dL 02/26/2025 9:44 AM [facility] Lactate, Arterial 0.6 0.5 - 1.6 mmol/L 02/26/2025 9:44 AM [facility] Body Temperature 37.0 Celsius 02/26/2025 9:44 AM [facility] pH, Temp Corrected, Arterial 7.42 7.35 - 7.45 02/26/2025 9:44 AM [facility] pCO2, Temp Corrected, Arterial 41 32 - 45 mm Hg 02/26/2025 9:44 AM [facility] pO2, Temp Corrected, Arterial 105 83 - 108 mm Hg 02/26/2025 9:44 AM [facility] Ward Maid ID Carina Jordan 02/26/2025 9:44 AM [facility] Blood, Arterial Whole blood specimen / Unknown 02/26/2025 9:42 AM EDT 02/26/2025 9:44 AM EDT Sherlyn Daniel MD LAB POINT OF CARE TE ST DOCKED DEVICE UNSOLICITED RESULTS Final Result [facility] [address] [place] [address] * (ABNORMAL) Abscess Culture and Gram Stain (02/26/2025 9:34 AM EDT) Culture Light Growth 03/01/2025 3:22 PM EDT [facility] Culture Staphylococcus aureus(A) GEENA 03/01/2025 3:22 PM EDT [facility] Comment:The organism value f or this result has been updated. These results have been appended to the previously preliminary verified report. Gram Stain Result Few Polymorphonuclear leukocytes(A) 03/01/2025 3:22 PM EDT [facility] Gram Stain Result Few Gram positive cocci in pairs(A) 03/01/2025 3:22 PM EDT [facility] Swab Bone structure of sternum / Unknown 02/26/2025 9:34 AM EDT 02/26/2025 11:01 AM EDT Comment:Pre-op diagnosis: Chest wall abscess [L02.213] Narrative Organism Antibiotic Method Susceptibility Staphylococcus aureus Clindamycin GEENA <=0.5 ug/ml: Susceptible Staphylococcus aureus Daptomycin GEENA <=1 ug/ml: Susceptible Staphylococcus aureus Erythromycin GEENA <=0.5 ug/ml: Susceptible Staphylococcus aureus Gentamicin GEENA <=1 ug/ml: Susceptible Staphylococcus aureus Linezolid GEENA <=1 ug/ml: Susceptible Staphylococcus aureus Minocycline GEENA <=1 ug/ml: Susceptible Staphylococcus aureus Oxacillin GEENA 0.5 ug/ml: Susceptible Staphylococcus aureus Penicillin G GEENA >1 ug/ml: Resistant Staphylococcus aureus Tetracycline GEENA <=0.5 ug/ml: Susceptible Staphylococcus aureus Trimethoprim/Sulfa methoxazo le GEENA <=0.5/9.5 ug/ml: Susceptible Staphylococcus aureus Vancomycin GEENA 1 ug/ml: Susceptible Sherlyn Daniel MD LAB MICROBIOLOGY - GENERAL ORD ERABLES Final Result [facility] [address] [place] [address] * Fungal Culture, Routine (02/26/2025 9:34 AM EDT) Culture No Fungal Growth at 1 Week 03/06/2025 9:03 AM EDT [facility] Swab Bone structure of sternum / Unknown 02/26/2025 9:34 AM EDT 02/26/2025 11:01 AM EDT Comment:Pre-op diagnosis: Chest wall abscess [L02.213] Sherlyn Daniel MD LAB MICROBIOLOGY - GENERAL ORD ERABLES Final Result Performing Organization Address City/[facility]/ZIP Co de Phone Number [facility] [address] [place] [address] * Anaerobic Culture (02/26/2025 9:34 AM EDT) Culture No anaerobes isolated 03/03/2025 5:50 AM EDT [facility] Swab Bone structure of sternum / Unknown 02/26/2025 9:34 AM EDT 02/26/2025 11:01 AM EDT Comment:Pre-op diagnosis: Chest wall abscess [L02.213] us Sherlyn Daniel MD LAB MICROBIOLOGY - GENERAL ORD ERABLES Final Result Performing Organization Address City/[facility] [place] [address] * Type and screen (02/25/2025 4:54 PM EDT) ABO/Rh O Positive 02/25/2025 12:55 PM EDT [facility] Antibody Screen Negative 02/25/2025 12:55 PM EDT [facility] Specimen Expiration 02/28/2025 23:59 02/25/2025 12:55 PM EDT [facility] Blood Venous blood specimen / Unknown Venipuncture / Unknown 02/25/2025 4:54 PM EDT 02/25/2025 5:14 PM EDT Alejandro AARON LAB BLOOD BANK TEST ORDERABL ES Final Result Performing Organization Address City/[facility]/ZIP Co de Phone Number [facility] BANK [address] [place] [address], [place] * (ABNORMAL) Wound Culture and Gram Stain (02/25/2025 4:46 AM EDT) CULTURE READING WOUND Moderate Growth 02/27/2025 3:19 PM EDT [facility] CULTURE READING WOUND Staphylococcus aureus(A) GEENA 02/27/2025 3:19 PM EDT [facility] Comment:The organism value f or this result has been updated. These results have been appended to the previously preliminary verified report. Gram Stain Result Numerous Polymorphonuclear leukocytes(A) 02/27/2025 3:19 PM EDT [facility] Gram Stain Result Numerous Gram positive cocci in pairs(A) 02/27/2025 3:19 PM EDT [facility] Gram Stain Result Numerous Gram positive cocci in clusters(A) 02/27/2025 3:19 PM EDT [facility] Swab Skin structure / Unknown Non-blood Collection / Unknown 02/25/2025 4:46 AM EDT 02/25/2025 5:14 AM EDT Narrative Organism Antibiotic Method Susceptibility Staphylococcus aureus Clindamycin GEENA <=0.5 ug/ml: Susceptible Staphylococcus aureus Daptomycin GEENA <=1 ug/ml: Susceptible Staphylococcus aureus Erythromycin GEENA <=0.5 ug/ml: Susceptible Staphylococcus aureus Gentamicin GEENA <=1 ug/ml: Susceptible Staphylococcus aureus Linezolid GEENA 2 ug/ml: Susceptible Staphylococcus aureus Minocycline GEENA <=1 ug/ml: Susceptible Staphylococcus aureus Oxacillin GEENA 0.5 ug/ml: Susceptible Staphylococcus aureus Penicillin G GEENA >1 ug/ml: Resistant Staphylococcus aureus Tetracycline GEENA <=0.5 ug/ml: Susceptible Staphylococcus aureus Trimethoprim/Sulfa methoxazo le GEENA <=0.5/9.5 ug/ml: Susceptible Staphylococcus aureus Vancomycin GEENA 1 ug/ml: Susceptible us Franco Guillory MD LAB MICROBIOLOGY - GENERAL ORD ERABLES Final Result [facility] [address] [place] [address] * (ABNORMAL) Bacterial ID Gram Positive (02/25/2025 3:18 AM EDT) Staphylococcus Result Detected( A) Not Detected 02/26/2025 4:46 AM EDT [facility] Comment:Assess if contaminan t or clinically relevant pathogen. Consider clinical stability and immune status of patient. Blood Venous blood specimen / Unknown Venipuncture / Unknown 02/25/2025 3:18 AM EDT 02/25/2025 4:04 AM EDT Narrative [facility] - 02/26/2025 4:46 AM EDT Analytes include: Bacillus cereus group, Bacillus subtilis group, Corynebacterium, Cutibacterium acnes (P acnes), Enterococcus, Enterococcus faecalis, Enterococcus faecium, Lactobacillus, Listeria, Listeria monocytogenes, Micrococcus, Staphylococcus, Staphylococcus aureus, Staphylococcus epidermidis, Stapylcoccus lugdunesis, Streptococcus, Streptococcus agalactiae, Streptococcus anginosus group, Streptococcus pneumoniae, Streptococcus pyogenes, Goode gram negative target, Goode Vianey target and mecA, mecC, Leon and vanB resistance genes. NOTE: A Not Detected result for result for a resistance gene does not indicate susceptibility to antimicrobials by mechanisms other than carrying the resistance genes detected by the BCID-GP assay. . GOODE VIANEY: Inclusive of Vianey albicans, Vianey glabrata, Pichia kudriavzevii (formerly Vianey krusei) and Vianey parapsilosis only. . GOODE GRAM NEGATIVE: Includes but not limited to Acinetobacter, Bacteroides, Enterobacteriaceae, Neisseria, Pseudomonas, Serratia, Stenotrophomonas maltophilia. . Reference Value: Not detected for all analytes tested. Franco Guillory MD LAB MICROBIOLOGY - GENERAL ORD ERABLES Final Result [facility] [address] [place] [address] * Hepatitis C Virus (HCV) Quantitative PCR - ED (02/25/2025 3:18 AM EDT) [facility] Hepatitis C Virus (HCV) Quantitative Interpretation Not Detected Not Detected. 02/27/2025 2:45 PM EDT [facility] Blood Venous blood specimen / Unknown Venipuncture / Unknown 02/25/2025 3:18 AM EDT 02/25/2025 3:53 AM EDT Narrative [facility] - 02/27/2025 2:45 PM EDT The Fernandez M2000 HCV test is a Real Time in vitro nucleic acid amplification test for the quantitation of Hepatitis C Viral (HCV) RNA in human serum in HCV-infected individuals. It is intended for use as an aid in the management of HCV-infected individuals undergoing anti-viral therapy. The dynamic range for this test is log10 = 1.08 to 8.00 and/or 12 to 100,000,000 IU/mL. The limit of detection (LOD) for this assay is 12 IU/mL and the limit of quantitation (LOQ) is 12 IU/mL. This assay is FDA approved for clinical use. Franco Guillory MD LAB BLOOD ORDERABLES Final Res ult Performing Organization Address [facility] [place] [address] * ED HIV 1/2 Antibody/Antigen Screen w/Reflex to HIV 1/2 Differentiation (02/25/2025 3:18 AM EDT) [facility] HIV 1 & 2 Antibody/Antigen Screen Non Reactive Non Reactive 02/25/2025 4:35 AM EDT [facility] Comment:Screening for HIV 1 & 2 antibodies, and P24 antigen is NONREACTIVE. No confirmatory testing is required. Blood Venous blood specimen / Unknown Venipuncture / Unknown 02/25/2025 3:18 AM EDT 02/25/2025 3:53 AM EDT Franco Guillory MD LAB BLOOD ORDERABLES Final Res ult Performing Organization Address [facility]/ZIP Co de Phone Number [facility] [address] [place] [address] * (ABNORMAL) Hepatitis C Antibody - ED (02/25/2025 3:18 AM EDT) Pathologist [facility] Hepatitis C Antibody Positive(A ) Negative 02/25/2025 4:40 AM EDT [facility] Blood Venous blood specimen / Unknown Venipuncture / Unknown 02/25/2025 3:18 AM EDT 02/25/2025 3:53 AM EDT us Franco Guillory MD LAB BLOOD ORDERABLES Final Res ult [facility] [address] [place] [address] * (ABNORMAL) Blood Culture (Aerobic/Anaerobet Set) (02/25/2025 3:18 AM EDT) Culture Staphylococcus aureus(AA) GEENA 02/27/2025 1:21 PM EDT [facility] Comment: Isolated from aerobic and anaerobic culture bottles. The organism value for this result has been updated. These results have been appended to the previously preliminary verified report. Culture Staphylococcus coagulase negative(AA) GEENA 02/27/2025 1:21 PM EDT [facility] Comment: Isolated from aerobic and anaerobic culture bottles. Isolated from one bottle only in a 24-hour period. If workup required, contact bacteriology at [facility]. This organism may be associated with a contaminated culture. The organism value for this result has been updated. These results have been appended to the previously preliminary verified report. Gram Stain Gram positive cocci in clusters(AA) 02/27/2025 1:21 PM EDT [facility] Comment: Organism seen in Anaerobic Blood Culture Bottle. Positivity Date and Time to Detection: 02/25/2025. at 00 Day(s) and 16 Hour(s). This is an appended report. These results have been appended to a previously preliminary verified report. Gram Stain Gram positive cocci in clusters(AA) 02/27/2025 1:21 PM EDT [facility] Comment: Organism seen in Aerobic Blood Culture Bottle. Positivity Date and Time to Detection: 02/25/2025 at 00 Day(s) and 16 Hour(s). This is an appended report. These results have been appended to a previously preliminary verified report. Blood Venous blood specimen / Unknown Venipuncture / Unknown 02/25/2025 3:18 AM EDT 02/25/2025 4:04 AM EDT Narrative [facility] - 02/27/2025 1:21 PM EDT Anaerobic blood culture entered in duplicate. Organism Antibiotic Method Susceptibility Staphylococcus aureus Daptomycin GEENA <=1 ug/ml: Susceptible Staphylococcus aureus Linezolid GEENA <=1 ug/ml: Susceptible Staphylococcus aureus Oxacillin GEENA <=0.25 ug/ml: Susceptible Staphylococcus aureus Vancomycin GEENA 1 ug/ml: Susceptible Franco Guillory MD LAB MICROBIOLOGY - GENERAL ORD ERABLES Final Result [facility] [address] [place] [address] * (ABNORMAL) Blood Culture (Aerobic/Anaerobet Set) (02/25/2025 3:18 AM EDT) Culture Staphylococcus aureus(AA) 03/03/2025 12:34 PM EDT [facility] Comment: For susceptibility results refer to: - [id number] Isolated from aerobic and anaerobic culture bottles. The organism value for this result has been updated. These results have been appended to the previously preliminary verified report. Gram Stain Gram positive cocci in clusters(AA) 03/03/2025 12:34 PM EDT [facility] Comment: Organism seen in Anaerobic Blood Culture Bottle. Positivity Date and Time to Detection: 02/26/2025. at 00 Day(s) and 19 Hour(s). This is an appended report. These results have been appended to a previously preliminary verified report. Gram Stain Gram positive cocci in clusters(AA) 03/03/2025 12:34 PM EDT [facility] Comment: Organism seen in Aerobic Blood Culture Bottle. Positivity Date and Time to Detection: 02/26/2025 at 01 Day(s) and 04 Hour(s). This is an appended report. These results have been appended to a previously preliminary verified report. Blood Venous blood specimen / Unknown Venipuncture / Unknown 02/25/2025 3:18 AM EDT 02/25/2025 4:04 AM EDT Franco Guillory MD LAB MICROBIOLOGY - GENERAL ORD ERABLES Final Result [facility] [address] [place] [address] * (ABNORMAL) Sed rate, automated (02/25/2025 3:18 AM EDT) Sedimentation Rate 65(H) <15 mm/hr 2024 3:54 AM EDT [facility] Blood Venous blood specimen / Unknown Venipuncture / Unknown 02/25/2025 3:18 AM EDT 02/25/2025 3:40 AM EDT Franco Guillory MD LAB BLOOD ORDERABLES Final Res ult Performing Organization Address [facility] de Phone Number [facility] [address] [place] [address] * (ABNORMAL) C-Reactive protein (02/25/2025 3:18 AM EDT) CRP, Plasma 282.5(H) <=8.0 mg/L 02/25/2025 4:23 AM EDT [facility] Blood Venous blood specimen / Unknown Venipuncture / Unknown 02/25/2025 3:18 AM EDT 02/25/2025 3:53 AM EDT Narrative [facility] - 02/25/2025 4:23 AM EDT This CRP test is appropriate for assessment of infection, systemic inflammation and/or tissue injury. To assess cardiovascular disease risk order high sensitivity CRP (CRPH). us Franco Guillory MD LAB BLOOD ORDERABLES Final Res ult Performing Organization Address [facility] [place] [address] * Phosphorus (02/25/2025 3:18 AM EDT) Phosphorus, Plasma 2.7 2.5 - 4.5 mg/dL 02/25/2025 4:23 AM EDT [facility] Blood Venous blood specimen / Unknown Venipuncture / Unknown 02/25/2025 3:18 AM EDT 02/25/2025 3:53 AM EDT Franco Guillory MD LAB BLOOD ORDERABLES Final Res ult Performing Organization Address City/[facility] Co de Phone Number [facility] [address] [place] [address] * Magnesium (02/25/2025 3:18 AM EDT) Magnesium, Plasma 2.2 1.9 - 2.4 mg/dL 02/25/2025 4:23 AM EDT [facility] Blood Venous blood specimen / Unknown Venipuncture / Unknown 02/25/2025 3:18 AM EDT 02/25/2025 3:53 AM EDT us Franco Guillory MD LAB BLOOD ORDERABLES Final Res ult [facility] [address] [place] [address] * (ABNORMAL) CMP (02/25/2025 3:18 AM EDT) Glucose, Plasma 132(H) 74 - 99 mg/dL 02/25/2025 4:23 AM EDT [facility] BUN, Plasma 13 7 - 21 mg/dL 02/25/2025 4:23 AM EDT [facility] Creatinine, Plasma 0.86 0.70 - 1.20 mg/dL 02/25/2025 4:23 AM EDT [facility] BUN/Creatinine Ratio 15 02/25/2025 4:23 AM EDT [facility] Sodium, Plasma 137 136 - 145 mmol/L 02/25/2025 4:23 AM EDT [facility] Potassium, Plasma 3.7 3.6 - 4.9 mmol/L 02/25/2025 4:23 AM EDT [facility] Chloride, Plasma 101 97 - 107 mmol/L 02/25/2025 4:23 AM EDT [facility] CO2, Plasma 24 22 - 29 mmol/L 02/25/2025 4:23 AM EDT [facility] Anion Gap 12 6 - 16 mmol/L 02/25/2025 4:23 AM EDT [facility] Total Calcium, Plasma 9.2 8.9 - 10.2 mg/dL 02/25/2025 4:23 AM EDT [facility] Total Protein 7.4 6.3 - 7.9 g/dL 02/25/2025 4:23 AM EDT [facility] Albumin, Plasma 3.5 3.5 - 5.2 g/dL 02/25/2025 4:23 AM EDT [facility] AST, Plasma 20 10 - 50 U/L 02/25/2025 4:23 AM EDT [facility] Comment:Hemolyzed, result ma y be falsely increased. ALT, Plasma 16 10 - 50 U/L 02/25/2025 4:23 AM EDT [facility] Alkaline Phosphatase, Plasma 100 40 - 115 U/L 02/25/2025 4:23 AM EDT [facility] Total Bilirubin, Plasma 0.7 0.2 - 1.1 mg/dL 02/25/2025 4:23 AM EDT [facility] eGFRcr 115.1 mL/min/1.7 3m*2 02/25/2025 4:23 AM EDT [facility] Comment:Reported eGFRcr in m L/min/1.73m2 is based the CKD-EPI 2020 equation that does not use a race coefficient. Blood Venous blood specimen / Unknown Venipuncture / Unknown 02/25/2025 3:18 AM EDT 02/25/2025 3:53 AM EDT Franco Guillory MD LAB BLOOD ORDERABLES Final Res ult [facility] [address] [place] [address] * (ABNORMAL) CBC w/diff (02/25/2025 3:18 AM EDT) WBC Count 9.74 3.70 - 10.30 10*3/uL LAB HEMATOLOGY METHOD 02/25/2025 3:42 AM EDT [facility] RBC Count 5.34 4.60 - 6.10 10*6/uL LAB HEMATOLOGY METHOD 02/25/2025 3:42 AM EDT [facility] HGB 15.5 13.7 - 17.5 g/dL LAB HEMATOLOGY METHOD 02/25/2025 3:42 AM EDT [facility] HCT 45.4 40.0 - 51.0 % LAB HEMATOLOGY METHOD 02/25/2025 3:42 AM EDT [facility] Platelet Count 167 155 - 369 10*3/uL LAB HEMATOLOGY METHOD 02/25/2025 3:42 AM EDT [facility] MCV 85 79 - 98 fL LAB HEMATOLOGY METHOD 02/25/2025 3:42 AM EDT [facility] MCH 29.0 26.0 - 32.0 pg LAB HEMATOLOGY METHOD 02/25/2025 3:42 AM EDT [facility] MCHC 34.1 30.7 - 35.5 g/dL LAB HEMATOLOGY METHOD 02/25/2025 3:42 AM EDT [facility] RDW 13.2 11.5 - 14.5 % LAB HEMATOLOGY METHOD 02/25/2025 3:42 AM EDT [facility] MPV 10.0 8.8 - 12.5 fL LAB HEMATOLOGY METHOD 02/25/2025 3:42 AM EDT [facility] nRBC 0.0 <=0.0 per 100 WBCs LAB HEMATOLOGY METHOD 02/25/2025 3:42 AM EDT [facility] Differential Type Automated LAB HEMATOLOGY METHOD 02/25/2025 3:42 AM EDT [facility] Neutrophils % 80 % LAB HEMATOLOGY METHOD 02/25/2025 3:42 AM EDT [facility] Lymphocytes % 10 % LAB HEMATOLOGY METHOD 02/25/2025 3:42 AM EDT [facility] Monocytes % 8 % LAB HEMATOLOGY METHOD 02/25/2025 3:42 AM EDT [facility] Eosinophils % 1 % LAB HEMATOLOGY METHOD 02/25/2025 3:42 AM EDT [facility] Basophils % 0 % LAB HEMATOLOGY METHOD 02/25/2025 3:42 AM EDT [facility] Immature Granulocytes % 1 % LAB HEMATOLOGY METHOD 02/25/2025 3:42 AM EDT [facility] Neutrophils Absolute 7.79(H) 1.60 - 6.10 10*3/uL LAB HEMATOLOGY METHOD 02/25/2025 3:42 AM EDT [facility] Lymphocytes Absolute 1.00(L) 1.20 - 3.90 10*3/uL LAB HEMATOLOGY METHOD 02/25/2025 3:42 AM EDT [facility] Monocytes Absolute 0.76 0.30 - 0.90 10*3/uL LAB HEMATOLOGY METHOD 02/25/2025 3:42 AM EDT [facility] Eosinophils Absolute 0.11 0.00 - 0.50 10*3/uL LAB HEMATOLOGY METHOD 02/25/2025 3:42 AM EDT [facility] Basophils Absolute 0.02 0.00 - 0.10 10*3/uL LAB HEMATOLOGY METHOD 02/25/2025 3:42 AM EDT [facility] Immature Granulocytes Absolute 0.06 0.00 - 0.06 10*3/uL LAB HEMATOLOGY METHOD 02/25/2025 3:42 AM EDT [facility] Blood Venous blood specimen / Unknown Venipuncture / Unknown 02/25/2025 3:18 AM EDT 02/25/2025 3:40 AM EDT Narrative [facility] - 02/25/2025 3:42 AM EDT Therapeutic decision making should be based on absolute values, rather than percentages. us Franco Guillory MD LAB BLOOD ORDERABLES Final Res ult [facility] [address] [place] [address] documented in this encounter Visit Diagnoses Diagnosis Sternal wound dehiscence, initial encounter- Primary Chest wall abscess Bacteremia due to Staphylococcus aureus Chest wall abscess Bacteremia due to Staphylococcus aureus H/O tricuspid valve repair Opioid use disorder, severe, on maintenance therapy Obesity due to excess calories without serious comorbidity documented in this encounter Admitting Diagnoses Diagnosis Sternal wound dehiscence, initial encounter Chest wall abscess documented in this encounter Administered Medications Inactive Administered Medications - up to 3 most recent administrations Medication Order MAR Action Action Date Dose Rate Site acetaminophen (Tylenol) tablet 1,000 mg 1,000 mg, Oral, Once, 1 dose, On 02/25/25 at 0310, STAT Given 02/25/2025 3:34 AM EDT 1,000 mg acetaminophen (Tylenol) tablet 1,000 mg 1,000 mg, Oral, Every 6 hours PRN, Starting on 02/25/25 at 0422, Until 02/26/25 at 1100, Routine, moderate pain Given 02/26/2025 12:57 AM EDT 1,000 mg Given 02/25/2025 4:29 PM EDT 1,000 mg Given 02/25/2025 8:06 AM EDT 1,000 mg acetaminophen (Tylenol) tablet 1,000 mg 1,000 mg, Oral, Every 6 hours scheduled, 20 doses, First dose (after last modification) on 02/26/25 at 1200, Last dose on 03/03/25 at 0400, Routine, Recovery(Phase II-Outpatient)/On Unit(Inpatient) Given 03/01/2025 3:03 AM EDT 1,000 mg Given 02/28/2025 9:04 PM EDT 1,000 mg Given 02/28/2025 3:54 PM EDT 1,000 mg acetaminophen (Tylenol) tablet 1,000 mg 1,000 mg, Oral, Every 6 hours scheduled, 8 doses, First dose (after last modification) on Sybil 03/01/25 at 1000, Last dose on 03/03/25 at 0400, Routine, Recovery(Phase II-Outpatient)/On Unit(Inpatient) Given 03/03/2025 4:41 AM EDT 1,000 mg Given 03/02/2025 9:38 PM EDT 1,000 mg Given 03/02/2025 9:23 AM EDT 1,000 mg acetaminophen (Tylenol) tablet 650 mg 650 mg, Oral, Every 4 hours PRN, Starting on Wed03/03/25 at 1000, Until Wed03/06/25 at 1535, Routine, Recovery(Phase II-Outpatient)/On Unit(Inpatient), fever, headaches, mild pain Given 03/06/2025 6:09 AM EDT 650 mg Given 03/05/2025 10:37 PM EDT 650 mg Given 03/05/2025 4:32 PM EDT 650 mg Buprenorphine HCl-Naloxone HCl (Suboxone) 8-2 MG per SL film 16 mg 16 mg, Sublingual, Daily, First dose on Wed02/25/25 at 0900, Until Discontinued, Routine Given 02/26/2025 8:35 AM EDT 16 mg Given 02/25/2025 8:15 AM EDT 16 mg Buprenorphine HCl-Naloxone HCl (Suboxone) 8-2 MG per SL film 8 mg 8 mg, Sublingual, 2 times daily, First dose (after last modification) on Wed02/27/25 at 1015, Until Discontinued, Routine Given 03/06/2025 8:24 AM EDT 8 mg Given 03/05/2025 9:19 PM EDT 8 mg Given 03/05/2025 8:36 AM EDT 8 mg calcium carbonate (Tums) chewable tablet 500 mg 500 mg, Oral, Every 6 hours PRN, Starting on Wed02/25/25 at 0419, Until Wed03/06/25 at 1535, Routine, indigestion, heartburn, dyspepsia / upset stomach ceFAZolin (Ancef) injection 2 g 2 g, Intravenous, Every 8 hours, First dose on Wed02/28/25 at 1000, Until Discontinued, Routine Given 03/06/2025 10:06 AM EDT 2 g Given 03/06/2025 1:27 AM EDT 2 g Given 03/05/2025 6:36 PM EDT 2 g docusate sodium (Colace) capsule 100 mg 100 mg, Oral, 2 times daily, First dose on Wed02/25/25 at 0900, Until Discontinued, Routine Given 03/03/2025 8:31 AM EDT 100 mg Given 02/27/2025 9:39 PM EDT 100 mg Given 02/27/2025 9:45 AM EDT 100 mg heparin (porcine) injection 5,000 Units 5,000 Units, Subcutaneous, Every 8 hours scheduled, First dose on Wed02/25/25 at 0425, Until Discontinued, Routine Given 02/26/2025 6:54 AM EDT 5,000 Units Left Lower Abdomen Given 02/25/2025 9:39 PM EDT 5,000 Units L eft Lower Abdomen Given 02/25/2025 2:17 PM EDT 5,000 Units R ight Upper Abdomen heparin (porcine) injection 5,000 Units 5,000 Units, Subcutaneous, Every 8 hours scheduled, First dose (after last modification) on Wed02/26/25 at 2200, Until Discontinued, Routine, Recovery(Phase II-Outpatient)/On Unit(Inpatient) Given 03/06/2025 6:06 AM EDT 5,000 Units Right Upper Arm (Back) Given 03/05/2025 9:18 PM EDT 5,000 Units L eft Lower Abdomen Given 03/05/2025 2:11 PM EDT 5,000 Units L eft Lower Abdomen HYDROmorphone (Dilaudid) injection 1 mg 1 mg, Intravenous, Once, 1 dose, On Wed03/05/25 at 1230, Routine Given 03/05/2025 11:43 AM EDT 1 mg HYDROmorphone (Dilaudid) tablet 2 mg 2 mg, Oral, Every 6 hours PRN, Starting on Wed03/02/25 at 0834, Until Wed03/04/25 at 0654, Routine, Recovery(Phase II-Outpatient)/On Unit(Inpatient), severe pain Given 03/04/2025 2:59 AM EDT 2 mg Given 03/03/2025 8:09 PM EDT 2 mg Given 03/03/2025 2:07 PM EDT 2 mg HYDROmorphone (Dilaudid) tablet 4 mg 4 mg, Oral, Every 4 hours PRN, Starting on Wed02/26/25 at 1117, Until Wed03/02/25 at 0834, Routine, Recovery(Phase II-Outpatient)/On Unit(Inpatient), severe pain Given 03/02/2025 3:05 AM EDT 4 mg Given 03/01/2025 11:16 PM EDT 4 mg Given 03/01/2025 7:01 PM EDT 4 mg ibuprofen tablet 400 mg 400 mg, Oral, Every 6 hours PRN, Starting on Wed02/25/25 at 0816, Until Wed02/26/25 at 1100, Routine, mild pain Given 02/25/2025 8:01 PM EDT 400 mg Given 02/25/2025 2:17 PM EDT 400 mg Given 02/25/2025 8:28 AM EDT 400 mg ibuprofen tablet 600 mg 600 mg, Oral, Every 6 hours scheduled, First dose (after last modification) on Wed02/26/25 at 1800, Until Discontinued, Routine, Recovery(Phase II-Outpatient)/On Unit(Inpatient) Given 03/01/2025 6:47 AM EDT 600 mg Given 02/28/2025 5:55 PM EDT 600 mg Given 02/28/2025 11:47 AM EDT 600 mg ibuprofen tablet 600 mg 600 mg, Oral, Every 6 hours PRN, Starting on Sybil 03/01/25 at 0800, Until Wed03/06/25 at 1535, Routine, Recovery(Phase II-Outpatient)/On Unit(Inpatient), mild pain, patient can choose between acetaminophen and ibuprofen for mild pain Given 03/05/2025 10:37 PM EDT 600 mg lactated Ringer's infusion 1,000 mL 1,000 mL, Intravenous, Once (Bolus), 1 dose, On Wed02/25/25 at 0310, STAT New Bag 02/25/2025 3:33 AM EDT 1,000 mL lidocaine (Lidoderm) 5 % patch 1 patch 1 patch, Apply externally, Every 24 hours, First dose on Wed02/25/25 at 1340, Until Discontinued, Administer over 12 Hours, Routine Medication Applied 03/05/2025 9:19 PM EDT 1 patch Back Medication Applied 03/04/2025 8:30 PM EDT 1 patch Back Medication Applied 03/03/2025 8:08 PM EDT 1 patch Back methocarbamol (Robaxin) tablet 750 mg 750 mg, Oral, 4 times daily, First dose on Wed02/25/25 at 1400, Until Discontinued, Routine Given 03/06/2025 8:24 AM EDT 750 mg Given 03/05/2025 9:18 PM EDT 750 mg Given 03/05/2025 6:36 PM EDT 750 mg mupirocin (Bactroban) 2 % ointment 1 Application Each Nostril, 2 times daily, 10 doses, First dose on Wed03/04/25 at 2100, Last dose on Wed03/09/25 at 0900, Routine Given 03/06/2025 8:24 AM EDT 1 Applic ation Given 03/05/2025 9:18 PM EDT 1 Application Given 03/05/2025 8:35 AM EDT 1 Application oxyCODONE (Roxicodone) immediate release tablet 10 mg 10 mg, Oral, Once as needed, 2 doses, Starting on Wed02/26/25 at 1022, Until Wed02/26/25 at 1204, Routine, Recovery (Phase I only), pain score of 6-8 out of 10 Given 02/26/2025 11:15 AM EDT 10 mg oxyCODONE (Roxicodone) immediate release tablet 5 mg 5 mg, Oral, Every 4 hours PRN, Starting on Wed03/04/25 at 0654, Until Wed03/06/25 at 1535, Routine, severe pain, For pain unrelieved by other interventions Given 03/06/2025 10:06 AM EDT 5 mg Given 03/06/2025 6:09 AM EDT 5 mg Given 03/05/2025 10:37 PM EDT 5 mg piperacillin-tazobactam (Zosyn) 4.5 g in sodium chloride 0.9% 100 mL IVPB (vial adapter required) 4.5 g, Intravenous, Every 6 hours, First dose on Wed02/25/25 at 0500, Until Discontinued, Routine New Bag 02/28/2025 3:42 AM EDT 4.5 g 36. 7 mL/hr New Bag 02/27/2025 9:45 PM EDT 4.5 g 36.7 mL/hr New Bag 02/27/2025 3:46 PM EDT 4.5 g 36.7 mL/hr potassium chloride CR (Klor-Con) ER tablet 40 mEq 40 mEq, Oral, Once, 1 dose, On Wed02/28/25 at 0900, Routine Given 02/28/2025 9:09 AM EDT 40 mEq Povidone-Iodine 5 % swab solution 1 Application Nasal, Once, 1 dose, On Wed02/26/25 at 0900, Routine Given 02/26/2025 8:21 AM EDT 1 Application senna (Senokot) tablet 17.2 mg 17.2 mg, Oral, Nightly, First dose on Wed02/25/25 at 2100, Until Discontinued, Routine Given 02/27/2025 9:39 PM EDT 17.2 mg Given 02/26/2025 8:58 PM EDT 17.2 mg Given 02/25/2025 8:02 PM EDT 17.2 mg simethicone (Mylicon) chewable tablet 80 mg 80 mg, Oral, 4 times daily PRN, Starting on Wed02/25/25 at 0419, Until Wed03/06/25 at 1535, Routine, flatulence sodium chloride 0.9 % flush 10 mL 10 mL, Intravenous, Every 12 hours, First dose on Wed02/25/25 at 0425, Until Discontinued, Routine Given 03/06/2025 3:58 AM EDT 10 mL Given 03/05/2025 3:35 PM EDT 10 mL Given 03/05/2025 4:05 AM EDT 10 mL sodium chloride 0.9 % flush 10 mL 10 mL, Intravenous, As needed, Starting on Wed02/25/25 at 0419, Until Wed03/06/25 at 1535, Routine, line care sodium chloride 0.9 % flush 10 mL 10 mL, Intravenous, Every 12 hours, First dose on Wed02/26/25 at 0815, Until Discontinued, Routine, Holding - Preprocedure Given 02/26/2025 8:21 AM EDT 10 mL sodium chloride 0.9 % flush 10 mL 10 mL, Intravenous, Every 12 hours, First dose on Wed03/04/25 at 1745, Until Discontinued, Routine Given 03/06/2025 6:09 AM EDT 10 mL Given 03/05/2025 5:21 PM EDT 10 mL Given 03/05/2025 6:18 AM EDT 10 mL sodium chloride 0.9 % flush 10 mL 10 mL, Intravenous, Every 1 hour PRN, Starting on Wed03/04/25 at 1651, Until Wed03/06/25 at 1535, Routine, Flush Before and After EVERY dose of medication. sodium chloride 0.9 % flush 20 mL 20 mL, Intravenous, Every 1 hour PRN, Starting on Wed03/04/25 at 1651, Until Wed03/06/25 at 1535, Routine, After blood draws and if any blood seen in tubing. vancomycin (Vancocin) 2,500 mg in sodium chloride 0.9 % 500 mL IVPB 2,500 mg, Intravenous, Once, 1 dose, On Wed02/25/25 at 0500, at 228 mL/hr, Routine Given 02/25/2025 7:45 AM EDT 2,500 mg 228 mL/hr vancomycin IVPB 1750 mg in 250 mL NS IVPB 1,750 mg, Intravenous, Every 12 hours, First dose on Wed02/25/25 at 1700, Until Discontinued, at 167.4 mL/hr, Routine New Bag 02/28/2025 6:50 AM EDT 1,750 mg 167.4 mL/hr New Bag 02/27/2025 6:50 PM EDT 1,750 mg 167.4 mL/hr New Bag 02/27/2025 6:50 AM EDT 1,750 mg 167.4 mL/hr documented in this encounter Active and Recently Administered Medications Times are shown in EDT. Scheduled Medication Order 03/04/2025 03/05/2025 03/06/2025 Buprenorphine HCl-Naloxone HCl (Suboxone) 8-2 MG per SL film 8 mg 8 mg, Sublingual, 2 times daily, First dose (after last modification) on Wed02/27/25 at 1015, Until Discontinued, Routine 09 (Given - Provider: Mayelin Dorsey RN)2029 (Given - Provider: Marsha Miranda RN) 08 (Given - Provider: Gallo Bhatt RN)2118 (Given - Provider: Gulshan Toney RN) 0824 (Given - Provider: Gallo Bhatt RN) ceFAZolin (Ancef) injection 2 g 2 g, Intravenous, Every 8 hours, First dose on Wed02/28/25 at 1000, Until Discontinued, Routine 0251 (Given - Provider: Yared Cartwright RN)0925 (Given - Provider: Mayelin Dorsey RN)181 (Given - Provider: Mayelin Dorsey RN) 0253 (Given - Provider: Marsha Miranda, SEBASTIAN)1021 (Given - Provider: Gallo Bhatt RN)1836 (Given - Provider: Gallo Bhatt RN) 0127 (Given - Provider: Gulshan Toney RN)1006 (Given - Provider: Gallo Bhatt RN) docusate sodium (Colace) capsule 100 mg 100 mg, Oral, 2 times daily, First dose on Wed02/25/25 at 0900, Until Discontinued, Routine 926 (Not Given - Provider: Mayelin Dorsey RN - Reason: Patient/family refused)2142 (Not Given - Provider: Marsha Miranda RN - Reason: Patient/family refused) 835 (Not Given - Provider: Gallo Bhatt RN - Reason: Patient/family refused)2118 (Not Given - Provider: Gulshan Toney RN - Reason: Patient/family refused) 0831 (Not Given - Provider: Gallo Bhatt RN - Reason: Patient/family refused) heparin (porcine) injection 5,000 Units 5,000 Units, Subcutaneous, Every 8 hours scheduled, First dose (after last modification) on Wed02/26/25 at 2200, Until Discontinued, Routine, Recovery(Phase II-Outpatient)/On Unit(Inpatient) 0536 (Given - Provider: Yared Cartwright RN)1421 (Given - Provider: aMyelin Dorsey RN)221 (Given - Provider: Marsha Miranda RN) 0624 (Given - Provider: Marsha Miranda, SEBASTIAN)141 (Given - Provider: Gallo Bhatt RN)2117 (Given - Provider: Gulshan Toney RN) 06 (Given - Provider: Gulshan Toney RN)1400 (Canceled Entry - Provider: Automatic Discharge Provider - Comment: Automatically canceled at discontinue of medication order) HYDROmorphone (Dilaudid) injection 1 mg (COMPLETED) 1 mg, Intravenous, Once, 1 dose, On Wed03/05/25 at 1230, Routine 1143 (Given - Provider: Gallo Bhatt RN) lidocaine (Lidoderm) 5 % patch 1 patch 1 patch, Apply externally, Every 24 hours, First dose on Wed02/25/25 at 1340, Until Discontinued, Administer over 12 Hours, Routine 0927 (Medication Removed - Provider: Mayelin Dorsey RN)2029 (Medication Applied - Provider: Marsha Miranda RN) 0836 (Medication Removed - Provider: Gallo Bhatt RN)211 (Medication Applied - Provider: Gulshan Toney RN) 0831 (Medication Removed - Provider: Gallo Bhatt RN) methocarbamol (Robaxin) tablet 750 mg 750 mg, Oral, 4 times daily, First dose on Wed02/25/25 at 1400, Until Discontinued, Routine 0925 (Given - Provider: Mayelin Dorsey RN)1421 (Given - Provider: Mayelin Dorsey, SEBASTIAN)1814 (Given - Provider: Mayelin Dorsey RN)2214 (Given - Provider: Marsha Miranda RN) 0835 (Given - Provider: Gallo Bhatt RN)141 (Given - Provider: Gallo Bhatt RN)1836 (Given - Provider: Gallo Bhatt RN)211 (Given - Provider: Gulshan Toney RN) 0824 (Given - Provider: Gallo Bhatt RN)1400 (Canceled Entry - Provider: Automatic Discharge Provider - Comment: Automatically canceled at discontinue of medication order) mupirocin (Bactroban) 2 % ointment 1 Application Each Nostril, 2 times daily, 10 doses, First dose on 03/04/25 at 2100, Last dose on Wed03/09/25 at 0900, Routine 2030 (Given - Provider: Marsha Miranda RN) 0835 (Given - Provider: Gallo Bhatt RN)211 (Given - Provider: Gulshan Toney RN) 0824 (Given - Provider: Gallo Bhatt RN) senna (Senokot) tablet 17.2 mg 17.2 mg, Oral, Nightly, First dose on 02/25/25 at 2100, Until Discontinued, Routine 2142 (Not Given - Provider: Marsha Miranda RN - Reason: Patient/family refused) 2118 (Not Given - Provider: Gulshan Toney RN - Reason: Patient/family refused) sodium chloride 0.9 % flush 10 mL(Linked Group 1) 10 mL, Intravenous, Every 12 hours, First dose on 02/25/25 at 0425, Until Discontinued, Routine 0334 (Return to [facility] [place] - Provider: Yared Cartwright RN)1814 (Given - Provider: Mayelin Dorsey RN) 0405 (Given - Provider: Marsha Miranda RN)1535 (Given - Provider: Gallo Bhatt RN) 0358 (Given - Provider: Gulshan Toney RN) sodium chloride 0.9 % flush 10 mL 10 mL, Intravenous, Every 12 hours, First dose on 03/04/25 at 1745, Until Discontinued, Routine 1814 (Given - Provider: Mayelin Dorsey, RN) 0618 (Given - Provider: Marsha Miranda RN)1721 (Given - Provider: Gallo Bhatt RN) 0609 (Given - Provider: Gulshan Toney RN) PRN Medication Order 03/04/2025 03/05/2025 03/06/2025 acetaminophen (Tylenol) tablet 650 mg(Linked Group 2) 650 mg, Oral, Every 4 hours PRN, Starting on 03/03/25 at 1000, Until Tu03/06/25 at 1535, Routine, Recovery(Phase II-Outpatient)/On Unit(Inpatient), fever, headaches, mild pain 1632 (Given - Provider: Gallo Bhatt RN)2237 (Given - Provider: Gulshan Toney RN) 0609 (Given - Provider: Gulshan Toney RN) calcium carbonate (Tums) chewable tablet 500 mg 500 mg, Oral, Every 6 hours PRN, Starting on 02/25/25 at 0419, Until Wed03/06/25 at 1535, Routine, indigestion, heartburn, dyspepsia / upset stomach HYDROmorphone (Dilaudid) tablet 2 mg (CANCELED) 2 mg, Oral, Every 6 hours PRN, Starting on 03/02/25 at 0834, Until 03/04/25 at 0654, Routine, Recovery(Phase II-Outpatient)/On Unit(Inpatient), severe pain 0259 (Given - Provider: Yared Cartwright RN) ibuprofen tablet 600 mg 600 mg, Oral, Every 6 hours PRN, Starting on Sybil 03/01/25 at 0800, Until Wed03/06/25 at 1535, Routine, Recovery(Phase II-Outpatient)/On Unit(Inpatient), mild pain, patient can choose between acetaminophen and ibuprofen for mild pain 223 (Given - Provider: Gulshan Toney RN) oxyCODONE (Roxicodone) immediate release tablet 5 mg 5 mg, Oral, Every 4 hours PRN, Starting on 03/04/25 at 0654, Until Wed03/06/25 at 1535, Routine, severe pain, For pain unrelieved by other interventions 1424 (Given - Provider: Mayelin Dorsey RN)1814 (Given - Provider: Mayelin Dorsey RN)2214 (Given - Provider: Marsha Miranda RN) 0304 (Given - Provider: Marsha Miranda RN)0839 (Given - Provider: Gallo Bhatt RN)1633 (Given - Provider: Gallo Bhatt RN)2237 (Given - Provider: Gulshan Toney RN) 0609 (Given - Provider: Gulshan Toney RN)1006 (Given - Provider: Gallo Bhatt RN) simethicone (Mylicon) chewable tablet 80 mg 80 mg, Oral, 4 times daily PRN, Starting on 02/25/25 at 0419, Until 03/06/25 at 1535, Routine, flatulence sodium chloride 0.9 % flush 10 mL(Linked Group 1) 10 mL, Intravenous, As needed, Starting on 02/25/25 at 0419, Until 03/06/25 at 1535, Routine, line care sodium chloride 0.9 % flush 10 mL 10 mL, Intravenous, Every 1 hour PRN, Starting on 03/04/25 at 1651, Until 03/06/25 at 1535, Routine, Flush Before and After EVERY dose of medication. sodium chloride 0.9 % flush 20 mL 20 mL, Intravenous, Every 1 hour PRN, Starting on 03/04/25 at 1651, Until 03/06/25 at 1535, Routine, After blood draws and if any blood seen in tubing. Linked Groups Order Group 1: Insert peripheral IV (COMPLETED) Once, On 02/25/25 at 0420, For 1 occurrence And Saline lock IV (CANCELED) Once, On 02/25/25 at 0420, For 1 occurrence And sodium chloride 0.9 % flush 10 mLJump to med 10 mL, Intravenous, Every 12 hours, First dose on 02/25/25 at 0425, Until Discontinued, Routine And sodium chloride 0.9 % flush 10 mLJump to med 10 mL, Intravenous, As needed, Starting on 02/25/25 at 0419, Until 03/06/25 at 1535, Routine, line care Group 2: acetaminophen (Tylenol) tablet 1,000 mg () 1,000 mg, Oral, Every 6 hours scheduled, 8 doses, First dose (after last modification) on Sybil 03/01/25 at 1000, Last dose on 03/03/25 at 0400, Routine, Recovery(Phase II-Outpatient)/On Unit(Inpatient) Followed by acetaminophen (Tylenol) tablet 650 mgJump to med 650 mg, Oral, Every 4 hours PRN, Starting on 03/03/25 at 1000, Until 03/06/25 at 1535, Routine, Recovery(Phase II-Outpatient)/On Unit(Inpatient), fever, headaches, mild pain documented in this encounter Additional Health Concerns Assessment Noted Time A Body Mass Index follow-up plan has been documented for the patient 03/06/2025 9:43 AM EDT documented as of this encounter Care Teams Baggage And Mail Agent Relationship Specialty Start Date End Date Pcp, [place] [address] PCP - General Family Medicine 02/25/25 Francisco Javier Eller MD [address] [place], [place] [id number] Administration Professional 03/02/25 documented as of this encounter
--- OUTSIDE RECORDS SUMMARY | 2025-02-26 08:43 | XMS_ITS | Encounter Summary ---
Author Organization Healthcare Address [address] [place] [address] Care Team Providers Care Dramatic Coach Name Role Phone Pcp, No Primary Care Provider Unavailabl e Reason for Visit * Auth/Cert (Routine) Specialty Diagnoses / Procedures Referred By Kerry ramirez Referred To Contact Diagnoses Sternal wound dehiscence, initial encounter chest abscess at surgical scar near mediastinum with [facility] [address] [facility] [address] [place] [address] Phone: tel: fax: [facility] A Emergency Department [address] [place] [address] Phone: tel: Referral ID Status Reason Start Date Expiration Date Visits Re quested Visits Authorized [id number] 1 1 Encounter Details Date Type Department Care Team (Late st Contact Info) Description 02/26/2025 8:43 AM EDT Anesthesia Event [facility] OPERATING ROOM [address] [place] [address] Praneeth Jasmine MD [address] [place] [address] Jeremy Franco MD [address] [place] [address] Anesthesia Record Procedure Summary Procedure Name Responsible Anesthesiologist Anesthesia Start Time Anesthesia Stop Time CHEST WASHOUT, REMOVAL OF STERNAL PLATES Praneeth Jasmine MD 02/26/25 0843 02/26/25 1051 Events Date Time Event Comment 02/26/2025 0843 An Start The patient was reevaluated immediately before sedation and remains eligible for anesthesia plan. 0843 In Room 0843 An Start Data 0851 An Induction The patient was reevaluated immediately before moderate or deep sedation use and before anesthesia induction. 0853 An Intubation 0907 Anesthesia Ready 0926 Proc Start 0938 Aaron ABG drawn 1025 Proc Fin 1040 An Extubation 1042 an stop data 1044 Out of Room 1051 Handoff to Receiving I compl eted my handoff to the receiving clinician during which we: 1. Identified the patient 2. Identified the responsible provider 3. Reviewed the pertinent medical history 4. Discussed the surgical course 5. Reviewed intra-op anesthesia management and issues during anesthesia 6. Set expectations for post-procedure period 7. Allowed opportunity for questions and acknowledgement of understanding. 1051 An Stop Meds Name Total ondansetron (Zofran) injection 2 mg/mL 4 mg dexamethasone (Decadron) injection 4 mg/ mL 4 mg rocuronium (ZeMuron) injection 10 mg/mL 44 mg sugammadex (Bridion) injection 100 mg/mL 100 mg midazolam (Versed) injection 1 mg/mL 2 m g fentaNYL (Sublimaze) injection 50 mcg/mL 100 mcg lidocaine PF (Xylocaine-MPF) 2% 100 mg propofol (Diprivan) injection 10 mg/mL 2 00 mg succinylcholine (Anectine) injection 20 mg/mL 140 mg ketamine 10 MG/ML 50 mg HYDROmorphone (Dilaudid) injection 1 mg/ mL 3 mg piperacillin-tazobactam (Zos yn) 4.5 g in sodium chloride 0.9% 100 mL IVPB (vial adapter required) 4.5 g dexmedetomidine (Precedex) infusion in N aCl 4 mcg/mL 8 mcg acetaminophen (Ofirmev) injection 10 mg/ mL 1,000 mg lactated Ringer's infusion 700 mL * Agents Name O2 N2O Air Sevoflurane Isoflurane Desflurane Inspired Desflurane Inspired Isoflurane Inspired Sevoflurane N2O Inspired N2O * Blood No blood administrations on file. Lines, Drains, and Airways Type Details Placement Removal Wound 02/26/25; 0942; Surgical; Open Surg; Sternum; Upper, Mid 02/26/25 0942 by Mario Alberto Ferreira, RN Negative Pressure Wound Therapy 02/26/25; 1022; Dr. Ocasio; Yes; Surgical (One white sponge, two pieces of silver sponge); Sternum; Upper, Mid 02/26/25 1022 by Mario Alberto Ferreira RN Wound 02/25/25; 0250; Y; Yes; Infection; Abscess; Sternum; small circular wound with redness around site; 02/26/25; 1999; Duplicate 02/25/25 0250 by Nevaeh Boston RN 02/26/251999 by Virginia Claros RN Peripheral IV Placement Date: 02/26/25; Placement Time: 0714; Catheter Size: 18 G; Orientation: Anterior, Distal, Left, Upper; Location: Arm; Site Prep: Alcohol; Technique: Anatomical landmarks; Insertion Attempts: 1; Patient Tolerance: Tolerated well; Removal Date: 02/27/25; Removal Time: 1630; Removal Reason: Infiltrated 02/26/25 0714 by Alexander Barnard 02/27/25 163 by Mary Blanco RN ETT Placement Date: 02/26/25; Placement Time: 0853 (created via procedure documentation); Mask Ventilation: 0; Technique: Direct laryngoscopy; Type: ETT - single; Single Lumen Tube Size: 7.5 mm; Cuffed: Yes; Laryngoscope: Felicitas; Blade Size: 3; Location: Oral; Grade View: Grade IIa; Insertion Attempts: 1; Placement Verification: Auscultation, Capnometry; Airway Comments: Atraumatic. No change to dentition. ; Placed by: Resident ; Removal Date: 02/26/25; Removal Time: 1040 02/26/25 0853 by Carina Jordan MD 02/26/25 1040 by Carina Jordan MD Arterial Line Placement Date: 02/26/25; Placement Time: 0934 (created via procedure documentation); Size: 20 G; Orientation: Left; Location: Radial; Inserted by: Resident; Securement: Taped; Removal Date: 02/26/25; Removal Time: 1300; Removal Reason: Per order 02/26/25 0934 by Carina Jordan MD 02/26/25 1300 by Christa Méndez RN documented in this encounter Social History Tobacco Use Types Packs/Day Years Used Date Smoking Tobacco: Never Assessed Humiliation, Afraid, Rape, and Kick questionnair e [...] money to buy more. Never true 02/28/20 Within the past 12 months, t he [...] any time in the past 12 m [facility], were you homeless or living in a assisted (including now)? No 02/27/2025 Utilities Answer Date [...] on file documented as of this encounter Functional Status * Calculated C-SSRS Risk Score (Lifetime/Recent) Answer Date of Assessment Author No Risk Indicated 02/26/2025 8:00 PM EDT Virginia Iraheta RN * Question Answer Date of Assessment Author 1. Wish to be (Past 1 Month) No 02/26/2025 8:00 PM EDT Virginia Claros RN 2. Non-Specific Active Suici mony Thoughts (Past 1 Month) No 02/26/2025 8:00 PM EDT Monica Claros RN 6. Suicidal Behavior (Lifetime) No 8:00 PM EDT Virginia Claros RN documented as of this encounter Miscellaneous Notes * Anesthesia Postprocedure Evaluation - Carina Jordan MD - 02/26/2025 10:51 AM EDT Patient: Alex Amaya Anesthesia Type: general Vitals Value Taken Time BP 137/89 02/26/25 10:47 Temp See RN flowsheet 02/26/25 10:51 Pulse 105 02/26/25 10:50 Resp 12 02/26/25 10:50 SpO2 92 % 02/26/25 10:50 Vitals shown include unfiled device data. Anesthesia Post Evaluation Patient location during evaluation: PACU Patient participation: complete - patient cannot participate Level of consciousness: sedated Airway patency: natural airway Cardiovascular status: hemodynamically stable Respiratory status: face mask, spontaneous ventilation, unassisted and nonlabored ventilation Hydration status: acceptable No notable events documented. Cosigned by Praneeth Jasmine MD at 02/26/2025 1:00 PM EDT Associated attestation - Praneeth Jasmine MD - 02/26/2025 1:00 PM EDT I agree with the findings and care plan documented in the postprocedure evaluation note. * Anesthesia Procedure Notes - Carina Jordan MD - 02/26/2025 9:33 AM EDT Associated Order(s): Arterial Line Arterial Line: An arterial line was placed. Procedure performed using surface landmarks in the OR for the following indication(s): continuous blood pressure monitoring and blood sampling needed. A 20 gauge (size), 1 and 3/4 inch (length), Arrow (type) catheter was placed into the Left radial artery and secured by tape. Seldinger technique used Staffing Performed: Resident Anesthesiologist: Praneeth Jasmine MD Resident: Carina Jordan MD Cosigned by Praneeth Jasmine MD at 02/26/2025 9:53 AM EDT Associated attestation - Praneeth Jasmine MD - 02/26/2025 9:53 AM EDT I was present during all critical and franks portions of the procedure(s) and [facility]. See resident note for details. * Anesthesia Procedure Notes - Carina Jordan MD - 02/26/2025 9:33 AM EDT Associated Order(s): Airway Airway Date/Time: 02/26/2025 8:53 AM Reason: elective Airway not difficult General Information and Staff Patient location during procedure: OR Anesthesiologist: Praneeth Jasmine MD Resident: Carina Jordan MD Performed: Resident Patient Condition Indications for airway management: anesthesia Patient position: sniffing Final Airway Details Final airway type: endotracheal airway Successful airway: ETT Cuffed: yes Successful intubation technique: direct laryngoscopy Adjuncts used in placement: intubating stylet Endotracheal tube insertion site: oral Blade: Felicitas Blade size: #3 ETT size (mm): 7.5 Cormack-Lehane Classification: grade IIa - partial view of glottis Placement verified by: chest auscultation and capnometry Measured from: lips ETT to lips (cm): 24 Additional Comments Atraumatic. No change to dentition. Cosigned by Praneeth Jasmine MD at 02/26/2025 9:53 AM EDT Associated attestation - Praneeth Jasmine MD - 02/26/2025 9:53 AM EDT I was present during all critical and franks portions of the procedure(s) and immediately available [facility] services the entire duration. See resident note for details. * Anesthesia Preprocedure Evaluation - Praneeth Jasmine MD - 02/26/2025 7:02 AM EDT Patient: Alex Amaya Procedure Information Date/Time: 02/26/25 0900 Procedure: CHEST WASHOUT, REMOVAL OF STERNAL PLATES Location: [facility] OR Diane / [facility] OR Surgeons: Sherlyn Cisse MD HPI Alex Amaya is a 34 y.o. male with history of IVDU on suboxone, smoking who presents for the above listed procedure. Additional medical problems include infectious endocarditis s/p TV repair (excision vegetations, De Lucas annuloplasty and primary repair of anterior tricuspid valve leaflet on 07/2021), c/b multiple I&Ds of the superior aspect of sternotomy scar. The patient denies previous problems with general anesthesia. Functional capacity is > 4 METs. Patient has been NPO > 8 hours. Anesthesia risks discussed with patient and patient wishes to proceed with surgery. Questions and concerns addressed. Electronic consent obtained. Relevant Problems No relevant active problems Lab Results Component Value Date WBC 9.74 02/25/2025 HGB 15.5 02/25/2025 HCT 45.4 02/25/2025 MCV 85 02/25/2025 PLT 167 02/25/2025 Lab Results Component Value Date GLUCOSE 132 (H) 02/25/2025 BUN 13 02/25/2025 CREATININE 0.86 02/25/2025 BCR 15 02/25/2025 NA 137 02/25/2025 K 3.7 02/25/2025 CL 101 02/25/2025 CO2 24 02/25/2025 ALBUMIN 3.5 02/25/2025 ALKPHOS 100 02/25/2025 BILITOT 0.7 02/25/2025 No echocardiogram results found for the past 12 months No results found for this or any previous visit (from the past 4464 hours). ROS Anesthesia: history of previous anesthesia. Cardiovascular: Cardio additional comments: S/p tricuspid valve repair . Respiratory: no asthma: no COPD: Neurological: no seizures: Does not have TIA. Musculoskeletal: Does not have cervical spine instability. Hematological/Lymphatic: History of no DVT. History of no pulmonary embolism. Endocrine/Metabolic: does not have diabetes mellitus. Does not have thyroid disorder. Clinical information reviewed: Allergies NPO Status Physical Exam Anesthesia Plan ASA 4 Plan was reviewed with: resident and attending Anesthesia technique(s) discussed with the patient/family: general Anesthesia plan agreed upon was: general Anesthetic plan and risks discussed with patient. Use of blood products discussed with patient who. Additional Equipment Requests documented in this encounter Plan of Treatment Upcoming Encounters Date Type Department Care Team (Late st Contact Info) Description 04/10/2025 8:30 AM EDT Office Visit [facility] [address] [place] [address] Keny Chin MD [facility] [address] [address] documented as of this encounter Procedures Procedure Name Priority Date/Time Associated Diagnosis Comments PB ANESTHESIA NON-TIMED PROCEDURE PLACEHOLDER Routine 02/26/2025 9:33 AM EDT PB ANESTHESIA PLACEHOLDER Routine 02/26/2025 8:53 AM EDT MN AN ELECTIVE ENDOTRACHEAL AIRWAY Routine 02/26/2025 8:53 AM EDT documented in this encounter Results * PB ANESTHESIA NON-TIMED PROCEDURE PLACEHOLDER (02/26/2025 9:33 AM EDT) Narrative Praneeth Jasmine MD - 02/26/2025 9:33 AM EDT Praneeth Jasmine MD 02/26/2025 9:53 AM Arterial Line: An arterial line was placed. Procedure performed using surface landmarks in the OR for the following indication(s): continuous blood pressure monitoring and blood sampling needed. A 20 gauge (size), 1 and 3/4 inch (length), Arrow (type) catheter was placed into the Left radial artery and secured by tape. Seldinger technique used Staffing Performed: Resident Anesthesiologist: Praneeth Jasmine MD Resident: Carina Jordan MD Praneeth Jasmine MD ANESTHESIA ORDERABLES Final Res ult * MN AN ELECTIVE ENDOTRACHEAL AIRWAY, PB ANESTHESIA PLACEHOLDER (02/26/2025 8:53 AM EDT) Narrative Praneeth Jasmine MD - 02/26/2025 8:53 AM EDT Praneeth Jasmine MD 02/26/2025 9:53 AM Airway Date/Time: 02/26/2025 8:53 AM Reason: elective Airway not difficult General Information and Staff Patient location during procedure: OR Anesthesiologist: Praneeth Jasmine MD Resident: Carina Jordan MD Performed: Resident Patient Condition Indications for airway management: anesthesia Patient position: sniffing Final Airway Details Final airway type: endotracheal airway Successful airway: ETT Cuffed: yes Successful intubation technique: direct laryngoscopy Adjuncts used in placement: intubating stylet Endotracheal tube insertion site: oral Blade: Felicitas Blade size: #3 ETT size (mm): 7.5 Cormack-Lehane Classification: grade IIa - partial view of glottis Placement verified by: chest auscultation and capnometry Measured from: lips ETT to lips (cm): 24 Additional Comments Atraumatic. No change to dentition. Praneeth Jasmine MD ANESTHESIA ORDERABLES Final Res ult documented in this encounter Visit Diagnoses Not on filedocumented in this encounter Administered Medications Inactive Administered Medications - up to 3 most recent administrations Medication Order MAR Action Action Date Dose Rate Site acetaminophen (Ofirmev) injection Intravenous, As needed, Starting on Wed02/26/25 at 0947, Until Wed02/26/25 at 1051, Routine Given 02/26/2025 9:47 AM EDT 1,000 mg dexamethasone (Decadron) injection Intravenous, As needed, Starting on Wed02/26/25 at 0934, Until Wed02/26/25 at 1051, Routine, Anesthesia Intraprocedure Given 02/26/2025 9:34 AM EDT 4 mg dexmedetomidine in NS (Precedex) 4 mcg/mL infusion Intravenous, As needed, Starting on Wed02/26/25 at 0934, Until Wed02/26/25 at 1051, Routine Given 02/26/2025 9:34 AM EDT 8 mcg fentaNYL (Sublimaze) injection Intravenous, As needed, Starting on Wed02/26/25 at 0847, Until Wed02/26/25 at 1051, Routine, Anesthesia Intraprocedure Given 02/26/2025 8:47 AM EDT 100 mcg HYDROmorphone (Dilaudid) injection Intravenous, As needed, Starting on Wed02/26/25 at 0912, Until Wed02/26/25 at 1051, Routine, Anesthesia Intraprocedure Given 02/26/2025 10:27 AM EDT 1 mg Given 02/26/2025 9:50 AM EDT 0.5 mg Given 02/26/2025 9:31 AM EDT 0.5 mg ketamine (Ketalar) injection Intravenous, As needed, Starting on Wed02/26/25 at 0851, Until Wed02/26/25 at 1051, Routine, Anesthesia Intraprocedure Given 02/26/2025 8:51 AM EDT 50 mg lactated Ringer's infusion Intravenous, Continuous PRN, Starting on Wed02/26/25 at 0843, Until Wed02/26/25 at 1051, Routine New Bag 02/26/2025 8:43 AM EDT lidocaine PF (Xylocaine) 2 % injection Intravenous, As needed, Starting on Wed02/26/25 at 0851, Until Wed02/26/25 at 1051, Routine, Anesthesia Intraprocedure Given 02/26/2025 8:51 AM EDT 100 mg midazolam (Versed) injection Intravenous, As needed, Starting on Wed02/26/25 at 0839, Until Wed02/26/25 at 1208, Routine, Anesthesia Intraprocedure Given 02/26/2025 8:39 AM EDT 2 mg ondansetron (Zofran) injection Intravenous, As needed, Starting on Wed02/26/25 at 1022, Until Wed02/26/25 at 1051, Routine, Anesthesia Intraprocedure Given 02/26/2025 10:22 AM EDT 4 mg piperacillin-tazobactam (Zosyn) 4.5 g in sodium chloride 0.9% 100 mL IVPB (vial adapter required) 4.5 g, Intravenous, Every 6 hours, First dose on Wed02/25/25 at 0500, Until Discontinued, Routine New Bag 02/28/2025 3:42 AM EDT 4.5 g 36. 7 mL/hr New Bag 02/27/2025 9:45 PM EDT 4.5 g 36.7 mL/hr New Bag 02/27/2025 3:46 PM EDT 4.5 g 36.7 mL/hr propofol (Diprivan) injection Intravenous, As needed, Starting on Wed02/26/25 at 0851, Until Wed02/26/25 at 1051, Routine, Anesthesia Intraprocedure Given 02/26/2025 8:51 AM EDT 200 mg rocuronium (ZeMuron) injection Intravenous, As needed, Starting on Wed02/26/25 at 0910, Until Wed02/26/25 at 1051, Routine, Anesthesia Intraprocedure Given 02/26/2025 9:48 AM EDT 10 mg Given 02/26/2025 9:34 AM EDT 10 mg Given 02/26/2025 9:10 AM EDT 20 mg succinylcholine (Anectine) injection Intravenous, As needed, Starting on Wed02/26/25 at 0852, Until Wed02/26/25 at 1051, Routine, Anesthesia Intraprocedure Given 02/26/2025 8:52 AM EDT 140 mg sugammadex (Bridion) 100 MG/ML injection Intravenous, As needed, Starting on Wed02/26/25 at 1024, Until Wed02/26/25 at 1051, Routine, Anesthesia Intraprocedure Given 02/26/2025 10:24 AM EDT 100 mg documented in this encounter Additional Health Concerns Assessment Noted Time A Body Mass Index follow-up plan has been documented for the patient 03/06/2025 9:43 AM EDT documented as of this encounter Care Teams Dramatic Coach Relationship Specialty Start Date End Date Pcp, No [address] [place] [address] PCP - General Family Medicine 02/25/25 documented as of this encounter
--- OUTSIDE RECORDS SUMMARY | 2025-02-26 09:00 | XMS_ITS | Encounter Summary ---
Author Organization Healthcare Address [address] [place] [address] Care Team Providers Care Bolt Sawyer Name Role Phone Pcp, No Primary Care Provider Unavailabl e Reason for Visit * Reason Comments Wound Check * Auth/Cert (Routine) Specialty Diagnoses / Procedures Referred By Kerry t Referred To Contact Diagnoses Sternal wound dehiscence, initial encounter chest abscess at surgical scar near mediastinum with hx cabg 2021 at [facility] Sherlyn Daniel MD [address] [address] Phone: tel: fax: [facility] A Emergency Department [address] [place] [address] Phone: tel: Referral ID Status Reason Start Date Expiration Date Visits Re quested Visits Authorized [id number] 1 1 Encounter Details Date Type Department Care Team (Late st Contact Info) Description 02/26/2025 9:00 AM EDT - 02/26/2025 11:30 AM EDT Surgery [facility] A OPERATING ROOM [address] [place] [id number] Sherlyn Daniel MD [id number] [place] [address] CHEST WASHOUT, REMOVAL OF STERNAL PLATES Surgery Details Date/Time Status Location OR Service Patient Class Case Class Case Type Trauma Case? 02/26/2025 9:00 AM Posted DAN[facility]O OR PAVA OR 10 Cardiothoracic Surgery Inpatient E-Elect nadine Panel 1 Procedure LRB Anes Op Region Wound Class Comments CHEST WASHOUT, REMOVAL OF ST ERNAL PLATES N/A General Class I/ Clean Surgeon Surgeon Role Service Panel Sherlyn Daniel MD Primary Cardiothoracic Surger y 1 Maxwell Ocasio MD Resident - Assisting 1 documented in this encounter Social History Tobacco [...] time in the past 12 m [facility], were you homeless or living in a skilled nursing (including now)? No 02/27/2025 Utilities Answer Date Recorded In the past 12 months has e electric, gas, oil, or water [employer] threatened to shut off services in your home? No 02/27/2025 Sex and Gender Information Value Date Recorded Sex Assigned at Not on file Legal Sex Male 12:02 AM EDT Gender Identity Not on file Sexual Orientation Not on file documented as of this encounter Last Filed Vital Signs Vital Sign Reading Time Taken Comments Blood Pressure 137/83 02/26/2025 11:30 AM EDT Pulse 94 02/26/2025 11:30 AM EDT Temperature 37.3 C (99.2 F) 02/26/2025 10:50 AM EDT Respiratory Rate 29 02/26/2025 11:30 AM EDT Oxygen Saturation 92% 02/26/2025 11:30 AM EDT Inhaled Oxygen Concentration - - Weight 113 kg (250 lb) 02/26/2025 8:28 AM EDT Height 188 cm (6' 2 ) 02/26/2025 8:28 AM EDT Body Mass Index 32.79 03/02/2025 9:00 AM EDT documented in this encounter Functional Status * Calculated C-SSRS Risk Score (Lifetime/Recent) Answer Date of Assessment Author No Risk Indicated 02/26/2025 8:00 AM EDT Debora Arauz RN * Question Answer Date of Assessment Author 1. Wish to be (Past 1 Month) No 02/26/2025 8:00 AM EDT Debora Arauz RN 2. Non-Specific Active Suici mony Thoughts (Past 1 Month) No 02/26/2025 8:00 AM EDT Sallie Arauz RN 6. Suicidal Behavior (Lifetime) No 8:00 AM EDT Debora Arazu RN documented as of this encounter Medications [...] 1 each 5 04/10/20 25 HYDROcodone-acetami nophen ([place]) 5-325 MG tablet Take 1 tablet by [...] MD PCP name and Address: Pcp, [facility] [address] [place] [id number] Referring provider name and address: Stephen Tello NP [address] [place] [address] [place], [place] Chief Concern, Brief History of Present Illness, and Hospital Course Alex Amaya is a 34 y.o. male with history of IV drug use on suboxone, infectious endocarditisrequiring tricuspid valve repair in [place] in 2019. He states that he had to have several incision and drainages of the superior aspect of his sternotomy scar that occurred in the [facility] that [facility] due to drainage [...] and got worse so he went to [facility]iatric where he was found to have the [...] Your Medications [facility] - [place], [place] - [address] [place], [facility] [phone] ceFAZolin injection These medications were sent to [facility] [place], [place] - [address] [facility] [address] lidocaine 5 % patch methocarbamol 750 MG [...] leaflet repair and De Lucas procedure at [facility] ([place]) - OSH CT imaging uploaded and reviewed - 02/25: BCx (+) staph aureus - Underwent chest washout, wound debridement, removal of sternal plates, and wound vac placement on02/[address] Daniel (silver sponge so no [place] change til Wednesday) - TTE shows LVEF 59%, mod dilated RV with nl RV fx. TV leaflets thickened. 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 There appears to be restricted [...] Post-Operative Pain - Continue home Suboxone - [facility] Obesity (POA) - BMI 33.47 - Complicates [...] 03/08/2025 2:00 PM Keny Tristan MD [facility] 03/12/2025 9:40 AM Sherlyn Daniel MD [facility] 03/26/2025 11:40 AM Sherlyn Daniel MD [facility] 03/27/2025 9:00 AM Keny Chin MD [facility] [place] 04/10/2025 9:00 AM Leela Chin MD [facility] [place] Follow-up: Francisco Javier Eller MD [id number] Go on 04/26/2025 Your appointment time is 2:10pm Please arrive 15 minutes early and bring bottles of medication [facility] [address] [place] [address] Go on 03/12/2025 03/12/25 at 11:30 AM - Infusion Center for PICC and labs Wound Vac Changes MWF - same location, but in Physical Therapy Department - First Appointment 03/14/25 9:00 AM [facility] [address] [place] [address] Follow up for IV antibiotics and supplies Stephen Tello, SONYA [address] [place] [address] [facility] Test Results Pending At Discharge Pending Labs [...] Note Alex Amaya 34 y.o. male CSN: [id number] Admission: 02/25/2025 2:42 AM Primary Problem: Sternal wound dehiscence, initial encounter Primary Demand Equipment Repairer: Primary Caregiver: Self Assistance Available at Discharge: Availability of Care Givers (#Hours): 24 hours, No assistance needed Family/Demand Equipment Repairer(s) Willingness Assessed to care for patient at [...] 30 days Follow-up: Francisco J[facility] Eller [facility] [id number] Go on 04/26/2025 Your appointment time is 2:10pm Please arrive 15 minutes early and bring bottles of medication [address] [facility] [phone] Go on 03/12/2025 03/12/25 at 11:30 AM - Infusion Center for PICC and labs Wound Vac Changes MWF - same location, but in Physical Therapy Department - First Appointment 03/14/25 9:00 AM [facility] [address] [place] [address] Follow up for IV antibiotics and supplies Stephen Tello, SONYA [address] [place] [address] [facility] Discharge Transportation: Transportation Anticipated: family or friend [...] vac changes and then will go to [facility]. S/O will assist and transport. [...] note were not included. [address] [place]: Rescue Guide for Opioid Overdose Step 1 [...] for use in the nose. * [facility] Barbara Martins - 03/06/2025 9:41 AM EDT Images from the original note were not included. [id number] Methocarbamol Brand Name(s): Robaxin??; also available generically [...] be awakened, immediately call emergency services at 810. What OTHER INFORMATION should I know? Keep all appointments with your doctor. Do not let anyone else take your medication. Ask your pharmacist any questions you have about refilling your prescription. It is important for you to keep a written list of all of the prescription and nonprescription (nsiu-bxm-bappdxt) medicines you are taking, as well as [...] or pharmacist about specific clinical use. The [place] [employer] represents that the information provided hereunder was formulated with a reasonable standard of care, and in conformity with professional standards in the field. The [place] [employer] makes no representations or warranties, express or implied, including, but not limited to, any implied warranty of merchantability and/or fitness for a particular purpose, with respect to such information and specifically disclaims all such warranties. Users are advised that decisions regarding drug therapy are complex medical decisions requiring the independent, informed decision of an appropriate health daycare assistant, and the information is provided for informational purposes only. The entire monograph for a drug should be reviewed for a thorough understanding of the drug's actions, uses and side effects. The [place] [employer] does not endorse or recommend the use of any drug.The information is not a substitute for medical care. AHFS?? Patient Medication Information?. ?? Copyright, 2023. The [place] [employer]??, [address], [address], [place], [place]. All Rights Reserved. Duplication for commercial use must be authorized by [facility]. Selected Revisions: May 18, 2017. AHFS?? Patient Medication Information?. ?? Copyright, 2024 * Tyler MooreLESLI - Barbara Martins - 03/06/2025 9:41 AM EDT Images from the original note were not included. [id number] Lidocaine Transdermal Patch Brand Name(s): Absorbine Jr?? [...] or years after a shingles infection). Nonprescription (gkaf-orx-kappyjo) lidocaine (Absorbine Jr, Aspercreme, Lidoca re, Salonpas, [...] or doctor for a copy of the child psychiatrist's information for the patient. Are there OTHER [...] if you have or have ever had ywkaduw-4-kmjaasmiw dehydrogenase (G-6PD) deficiency (an inherited blood disorder), [...] of all of the prescription and nonprescription (tqej-yhb-daaddvs) medicines you are taking, as well as [...] or pharmacist about specific clinical use. The [place] [employer] represents that the information provided hereunder was formulated with a reasonable standard of care, and in conformity with professional standards in the field. The [place] [employer] makes no representations or warranties, express or implied, including, but not limited to, any implied warranty of merchantability and/or fitness for a particular purpose, with respect to such information and specifically disclaims all such warranties. Users are advised that decisions regarding drug therapy are complex medical decisions requiring the independent, informed decision of an appropriate health daycare assistant, and the information is provided for informational purposes only. The entire monograph for a drug should be reviewed for a thorough understanding of the drug's actions, uses and side effects. The [place] [employer] does not endorse or recommend the use of any drug.The information is not a substitute for medical care. AHFS?? Patient Medication Information?. ?? Copyright, 2023. The [place] [employer]??, [address], [address], [place], [place]. All Rights Reserved. Duplication for commercial use must be authorized by [facility]. Selected Revisions: March 18, 2021. AHFS?? Patient Medication Information?. ?? Copyright, 2024 * Tyler Easley - Barbara Martins - 03/06/2025 9:41 AM EDT Images from the original note were not included. [id number] Cefazolin Injection Brand Name(s): Ancef?, Kefzol?; also [...] of all of the prescription and nonprescription (osfd-hlx-rqvooyr) medicines you are taking, as well as [...] or pharmacist about specific clinical use. The [place] [employer] represents that the information provided hereunder was formulated with a reasonable standard of care, and in conformity with professional standards in the field. The [place] [employer] makes no representations or warranties, express or implied, including, but not limited to, any implied warranty of merchantability and/or fitness for a particular purpose, with respect to such information and specifically disclaims all such warranties. Users are advised that decisions regarding drug therapy are complex medical decisions requiring the independent, informed decision of an appropriate health daycare assistant, and the information is provided for informational purposes only. The entire monograph for a drug should be reviewed for a thorough understanding of the drug's actions, uses and side effects. The [place] [employer] does not endorse or recommend the use of any drug.The information is not a substitute for medical care. AHFS?? Patient Medication Information?. ?? Copyright, 2023. The [place] [employer]??, [address], [address], [place], [place]. All Rights Reserved. Duplication for commercial use must be authorized by [facility]. Selected Revisions: March 23, 2024. AHFS?? [...] present and normoactive x 4 quadrants SKIN: [place], warm, and dry. No rash, sores, or [...] Bacteremia (POA) - h/o TV IE in 2020 for which he had TV leaflet repair and De Lucas procedure at [facility]) - OS CT imaging uploaded and reviewed - 02/25: BCx (+) staph aureus - Underwent chest washout, wound debridement, removal of sternal plates, and wound vac placement on02/[address] Daniel (silver sponge so no [place] change til Wednesday) - TTE shows LVEF 59%, mod dilated RV with nl RV fx. TV leaflets thickened. 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 There appears to be restricted [...] [place] changes, continue home Suboxone Cardiothoracic Surgery [phone] * Progress Notes - Lise Christine, RN - 03/05/2025 3:07 PM EDT Case Management Discharge Note Alex Amaya 34 y.o. male CSN: [id number] Admission: 02/25/2025 2:42 AM Primary Problem: Sternal wound dehiscence, initial encounter Primary Demand Equipment Repairer: Primary Caregiver: Self Assistance Available at Discharge: Availability of Care Givers (#Hours): 24 hours, No assistance needed Family/Demand Equipment Repairer(s) Willingness Assessed to care for patient at [...] 30 days Follow-up: Francisco Javier Eller [facility] [id number] Go on 04/26/2025 Your appointment time is 2:10pm Please arrive 15 minutes early and bring bottles of medication [address] [place] [address] Go on 03/12/2025 03/12/25 at 11:30 AM - Infusion Center for PICC and labs Wound Vac Changes MWF - same location, but in Physical Therapy Department - First Appointment 03/14/25 9:00 AM [facility] [place] [address] Follow up for IV antibiotics and supplies Discharge Transportation: Transportation Anticipated: family or friend will provide Transportation Home at Discharge: Family/Friend will Provide Follow Up Transport: Transportation Needed to Follow up Appoinments: Family/Friend will Provide Additional Comments: Per primary team patient is medically ready for discharge. Patient will discharge with IV antibiotics from [facility] - supplies will be delivered to bedside. Wound vac ordered through [facility] - will be delivered to bedside. Patient will follow up in [facility]ovascular [facility] for first two wound vac changes, then will go to [facility] starting March 14. Patient also scheduled to go to [facility] infusion center for PICC care and labs. Family will assist and transport. Update: [facility] unable to deliver IV abx today. He will be priority in the morning. Patient will discharge tomorrow. Lise Christine RN * Care Plan - Gallo Bhatt [...] Roper RN Authorized by: Sherlyn Daniel MD Cross Protocol: Verbal consent obtained?: Yes Written consent [...] vein Patient position: Flat Catheter Lot #: [id number] Catheter child psychiatrist: [employer] Catheter placed: Single lumen Catheter size: 4 [...] present and normoactive x 4 quadrants SKIN: [place], warm, and dry. No rash, sores, or [...] leaflet repair and De Lucas procedure at [facility]) - OS CT imaging uploaded and reviewed - 02/25: BCx (+) staph aureus - Underwent chest washout, wound debridement, removal of sternal plates, and wound vac placement on02/[address] Daniel (silver sponge so no [place] change til Wednesday) - TTE shows LVEF 59%, mod dilated RV with nl RV fx. TV leaflets thickened. 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 There appears to be restricted [...] wound vac - picc ordered Cardiothoracic Surgery [phone] * Care Plan - Yared Cartwright RN [...] present and normoactive x 4 quadrants SKIN: [place], warm, and dry. No rash, sores, or [...] leaflet repair and De Lucas procedure at [facility]) - OSH CT imaging uploaded and reviewed - 02/25: BCx (+) staph aureus - Underwent chest washout, wound debridement, removal of sternal plates, and wound vac placement on02/[address] Daniel (silver sponge so no [place] change til Wednesday) - TTE shows LVEF 59%, mod dilated RV with nl RV fx. TV leaflets thickened. 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 There appears to be restricted [...] Post-Operative Pain - Continue home Suboxone - [facility] Obesity (POA) - BMI 33.47 - Complicates care Plan: - Continue cefazolin per ID - Continue wound vac - Per ID, if BC from 02/27 & 03/01 remain negative, okay to order single lumen PICC. Cardiothoracic Surgery [phone] * Care Plan - Yared Cartwright RN [...] leaflet repair and De Lucas procedure at [facility] - OSH CT imaging uploaded and reviewed - 02/25: BCx (+) staph aureus - Underwent chest washout, wound debridement, removal of sternal plates, and wound vac placement on02/[address] Daniel (silver sponge so no [place] change til Wednesday) - TTE shows LVEF 59%, mod dilated RV with nl RV fx. TV leaflets thickened. 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 There appears to be restricted [...] Post-Operative Pain - Continue home Suboxone - [facility] Obesity (POA) - BMI 33.47 - Complicates care Plan: - Continue cefazolin per ID - Continue wound vac - Per ID, if BC from 02/27 & 03/01 remain negative, okay to order single lumen PICC. Cardiothoracic Surgery [phone] * Significant Event - Keny Chin MD [...] 0930AM WEEK 6 FOLLOWUP: 04/10/2025, 0900AM at [address] [place] [address] (Select Option 3 for IV Antibiotic / PICC line related issues) All questions regarding outpatient parenteral antimicrobials after discharge should be directed to the OPAT nurse navigator at (Select Option 3 for IV Antibiotics/PICC Issues) between 8am-5pm. After 5 pm, or during weekends/[place] holidays, please call the paging jet operator at to reach the on-call ID [...] mg, Oral, q4h PRN, Zacher, Kelsie A, GROCERY CASHIER Buprenorphine HCl-Naloxone HCl (Suboxone) 8-2 MG per SL film 8 mg, 8 mg, Sublingual, BID, Alejandro Sandoval PA, 8 mg at 03/02/25 0924 calcium carbonate (Tums) chewable tablet 500 mg, 500 mg, Oral, q6h PRN, Zariley, Kelsie A, GROCERY CASHIER ceFAZolin (Ancef) injection 2 g, 2 g, Intravenous, q8h, Carloz Kelsie A, GROCERY CASHIER, 2 g at 03/02/25 0923 docusate sodium (Colace) capsule 100 mg, 100 mg, Oral, BID, Zariley, Kelsie A, GROCERY CASHIER, 100 mg at 03/02/25 0923 heparin (porcine) injection 5,000 Units, 5,000 Units, Subcutaneous, q8h [facility], Maxwell Ocasio MD, 5,000 Units at 03/02/25 0515 HYDROmorphone (Dilaudid) tablet 2 mg, 2 mg, Oral, q6h PRN, Zacher, Kelsie A, GROCERY CASHIER ibuprofen tablet 600 mg, 600 mg, Oral, q6h PRN, Zacher, Kelsie A, GROCERY CASHIER lidocaine (Lidoderm) 5 % patch 1 patch, 1 patch, Apply externally, q24h, Kelsie Carty APRN, 1 patch at 03/01/252111 methocarbamol (Robaxin) tablet 750 mg, 750 mg, Oral, 4x daily, Kelsie Carty APRN, 750 mg at 03/02/25 0923 senna (Senokot) tablet 17.2 mg, 17.2 mg, Oral, Nightly, Kelsie Carty APRN, 17.2 mg at 02/27/252138 simethicone (Mylicon) chewable tablet 80 mg, 80 mg, Oral, 4x daily PRN, Kelsie Carty APRN [COMPLETED] Insert peripheral IV, , , Once AND Saline lock IV, , , Once AND sodium chloride0.9 % flush 10 mL, 10 mL, Intravenous, q12h, 10 mL at 03/01/25 1540 AND sodium chloride 0.9 % flush 10 mL, 10 mL, Intravenous, PRN, Kelsie Carty GROCERY CASHIER O: Visit Vitals BP 130/79 (BP Location: [...] regurgitation. Tricuspid Valve: The leaflets appear thickened. 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 There appears to be restricted [...] is no recent study available for direct geil-bx-bqoo comparison. 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 Ptalso with h/o TV IE in 2019 for which he had TV leaflet repair and De Lucas procedure at [facility]). Pt was incarcerated at the time, and post-discharge developed chronic drainage from cephalad portion of sternal wound. Pt reportedly had I&Ds at [facility] facility. Wound subsequentlyhas open and closed several times since 2021, including in December 2024. On/around 02/19/2025, wound again ruptured with large amount of purulent drainage, which pt described as largest amount of renata inage in several years. Pt seen at [facility] 02/24/2025. 02/24/2025 CT showed 2.4x2.1x2.6cm abscess [...] leaflet repair and De Lucas procedure at [facility] SUBSTANCE ABUSE: Illicit: H/o IVDA, polysubstance abuse. [...] For now, while inpatient at [facility]: Continue Cefazolin 2g IV q8h [...] [facility] (Infect[facility]) [address] [place] [address] CHIEF MERCHANDISING OFFICER: . FAX: [facility] will sign off. (Please reconsult us if his 02/27/2025 or 03/01/2025 blood cultures turn positive. This will affect dates of therapy and when PICC can be placed.) The following complex inpatient infectious disease services were performed today: Complex antimicrobial therapy counseling and treatment * Tyler Easley - Donna Rosario RN - 03/02/2025 10:43 [...] arms away from your body. * [facility] Donna Rosario RN - 03/02/2025 10:43 AM EDT Images from the original note were not included. [id number] Understanding Wound Separation After Surgery (Wound Dehiscence) [...] of the opening. How to say it [id number] How wound dehiscence happens A wound can [...] all of the wound is open ?? [place] or stitches are broken ?? Pain ?? [...] out Last Reviewed Date: 2024 00:00:00 ?? [id number] The [employer]. All rights reserved. This information is not intended as a substitute for professional medical care. Always follow your healthcare professional's instructions. * Consults - Asia Neumann RD - 03/02/2025 9:48 AM EDT Adult Nutrition Evaluation Note Alex Amaya 34 y.o. male CSN: [id number] Room/Bed 119/119A Nutrition evaluation type: assessment Reason for evaluation: [facility] Hospital course: 34 yo male transferred to from [facility] for evaluation of chronic sternotomy wound with chest abscess. He states that he had to have several incision and drainages of the superior aspect of his sternotomy scar that occurred [facility] due to drainage with the last in 2021. He reports that the area has chronically healed and opened up multipletimes, most recently about 3 months ago. Past medical/ surgical history: IVDU on suboxone, infectious endocarditis requiring tricuspid valverepair in [place] in 2019. Medical History[1] Surgical History[2] Social [...] (260 lb 12.9 oz) BMI (Calculated): 33.47 [place] Body Weight (kg): 86.4 Percent [place] Body Weight: 137 Adjusted Body Weight (kg): 94.4 Estimated Needs: Metabolic Cart Study Results: Current Nutrition Intake: Diet Supplements: None Diet Order: Adult Diet Diet Texture: Regular Percent Meals Eaten (%): 100% x 3 meals Diet Experience and Nutrition History: Diet Education Provided: Will monitor Pertinent home medications: Reviewed Muslim needs: Nutrition Focused Physical Exam: Physical exam [...] with nl RV fx. TV leaflets thickened. 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 There appears to be restricted motion/malcoaptation involving the septal leaflet. There is no tricuspid valve vegetation. There is severe tricuspid regurgitation. There is systolic flow reversal of the hepatic veins consistent with significant tricuspid valve regurgitation. OUD (POA) Post-Operative Pain - continue home Suboxone - [facility] Obesity (POA) - BMI 33.88 - complicates all aspects of care Plan: - Continue IV abx per ID - Continue wound vac - Will need PICC Cardiothoracic Surgery [phone] * Progress Notes - Estefania Salguero - 03/01/2025 8:08 AM EDT Case Management Adult Progress Note Alex Amaya 34 y.o. male CSN: [id number] Admission: 02/25/2025 2:42 AM Primary Problem: Sternal [...] IV Access: pending Patient Specific Outpatient Circumstances: [address] [place], [place] [id number] Family Support: Extended Emergency Contact Information Primary Emergency Contact: Mary Lemus Mobile Relation: Significant Other Preferred language: Barbadian Dope Worker needed? No Contact information: Alex Amaya -[phone] Afua Nguyenel (pt's S.O. -will administer IV abx) - [phone] Outpatient services (including home infusion, home health, [...] PICC care/labs;patient is requesting to go to [facility] close to home . After this discussion, [...] via secure chat or staff messaging in CredSimple. This note is not the final recommendations [...] 500 mg, 500 mg, Oral, q6h PRN, Carloz Kelsie A, GROCERY CASHIER ceFAZolin (Ancef) injection 2 g, 2 g, Intravenous, q8h, August Cartya A, GROCERY CASHIER, 2 g at 02/28/25 0908 docusate sodium (Colace) capsule 100 mg, 100 mg, Oral, BID, August Cartya A, GROCERY CASHIER, 100 mg at 02/27/25 2139 heparin (porcine) [...] Kelsie Carty APRN O: Visit Vitals BP 134/77 (BP Location: [...] regurgitation. Tricuspid Valve: The leaflets appear thickened. 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 There appears to be restricted [...] is no recent study available for direct lwpq-um-dzeb comparison. 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 Ptalso with h/o TV IE in 2019 for which he had TV leaflet repair and De Lucas procedure at [facility]). Pt was incarcerated at the time, and post-discharge developed chronic drainage from cephalad portion of sternal wound. Pt reportedly had I&Ds at [facility]. Wound subsequentlyhas open and closed several times since 2021, including in December 2024. On/around 02/19/2025, wound again ruptured with large amount of purulent drainage, which pt described as largest amount of renata inage in several years. Pt seen at [facility] 02/24/2025. 02/24/2025 CT showed 2.4x2.1x2.6cm abscess [...] leaflet repair and De Lucas procedure at [facility] ([place]) SUBSTANCE ABUSE: Illicit: H/o IVDA, polysubstance abuse. [...] For now, while inpatient at [facility]: Continue Cefazolin 2g IV q8h [...] treatment * Progress Notes - Kelsie Carty, GROCERY CASHIER - 02/28/2025 11:30 AM EDT CVT Progress [...] 16 BP: (102-146)/(66-88) 102/71 Visit Vitals BP 102/ Pulse 101 Temp 36.3 ??C (97.3 ??F) [...] with nl RV fx. TV leaflets thickened. 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 There appears to be restricted motion/malcoaptation involving the septal leaflet. There is no tricuspid valve vegetation. There is severe tricuspid regurgitation. There is systolic flow reversal of the hepatic veins consistent with significant tricuspid valve regurgitation. OUD (POA) Post-Operative Pain - continue home Suboxone - [facility] Obesity (POA) - BMI 33.88 - complicates all aspects of care Plan: - continue IV abx per ID - continue wound vac Cardiothoracic Surgery [phone] * Care Plan - Nasra Jasmien RN - 02/28/2025 10:16 AM EDT Problem: [...] Progressing * Progress Notes - Mayelin Caruso, RuD - 02/28/2025 8:08 AM EDT Vancomycin therapy [...] needed in the future. Mayelin Caruso PharmD, [facility] Clinical Pharmacist - Cardiology Contact via [...] of HCV workup. Branden Elizalde, Pharm D. [facility] via secure [...] injection 5,000 Units, 5,000 Units, Subcutaneous, q8h SAULAmarjit Jeffrey A, MD, 5,000 Units at 02/27/25 [...] tablet 600 mg, 600 mg, Oral, q6h SAULAmarjit Jeffrey A, MD, 600 mg at 02/27/25 1145 lidocaine [...] regurgitation. Tricuspid Valve: The leaflets appear thickened. 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 There appears to be restricted [...] is no recent study available for direct dvrt-ad-zqcn comparison. 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 Ptalso with h/o TV IE in 2019 for which he had TV leaflet repair and De Lucas procedure at [facility] ([place]). Pt was incarcerated at the time, and post-discharge developed chronic drainage from cephalad portion of sternal wound. [facility] Wound subsequentlyhas open and closed several times since 2021, including in December 2024. On/around 02/19/2025, wound again ruptured with large amount of purulent drainage, which pt described as largest amount of renata inage in several years. Pt seen at [facility] 02/24/2025. 02/24/2025 CT showed 2.4x2.1x2.6cm abscess [...] leaflet repair and De Lucas procedure at [facility] ([place]) SUBSTANCE ABUSE: Illicit: H/o IVDA, polysubstance abuse. [...] For now, while inpatient at [facility]: D/c Vanco and Zosyn Start [...] Note Alex Amaya 34 y.o. male CSN: [id number] Admission: 02/25/2025 2:42 AM Primary Problem: Sternal wound dehiscence, initial encounter PCP: Pcp, No Emergency Contact: Extended Emergency Contact Information Primary Emergency Contact: Mary Lemus Mobile Relation: Significant Other Preferred language: Barbadian Dope Worker needed? No Insurance: Primary Visit Coverage Payer Plan Sponsor Code Group Number Group Name AETNA AETNA OPEN CHOICE ACCESS [id number] Primary Visit Coverage Subscriber Subscriber ID Subscriber Name Subscriber SSN Subscriber Address [id number] Alex Amaya [id number] [place] [id number] Secondary Visit Coverage Payer Plan Sponsor Code Group Number Group Name [facility] MEDICAID WELL[employer] MEDICAID Secondary Visit Coverage Subscriber Subscriber ID Subscriber Name Subscriber SSN Subscriber Address [id number] Alex Amaya [id number] [place] [address] Patient information: Primary Caregiver: Self Accompanied by/Relationship: Mary Lemus ([phone]) Support System: Immediate family Daily Living Activities: Functional Status: Independent Living Arrangements: Spouse/Significant other, Children (5 y.o. child) Type of Residence: Private residence, Single Level (1-2 SACHIN) [address] [address] Current DME: Equipment Currently Used at Home: [...] Dialysis Services: N/A Living Will/Advance Directive/Power of Bindery Machine Setter/Set Up Operator /Guardian: Have you reviewed your Advance [...] pt accompanied by significant other Mary Mariah ([phone]). Pt does not have a POA/LW/AD. Pt [...] DC. Pt has never worked with an TELEPRINTER and has never stayed anywhere overnight for physical rehab. Pt prefers [facility] in [place] as his pharmacy. Pt confirms insurance listed [...] sounds present and normoactivex 4 quadrants SKIN: [place], warm, and dry. No rash, sores, or [...] Post-Operative Pain - continue home Suboxone - [facility] Obesity (POA) - BMI 32 - complicates all aspects of care Plan: - continue IV abx per ID - continue wound vac - TTE completed this morning, read pending Cardiothoracic Surgery [phone] * Discharge Instr - Other Orders - Donna Rosario RN - 02/27/2025 10:28 AM EDT Please arrive 30 minutes early for your appointment with Dr. Daniel Prior to your appointment, go to the radiology department on the 1st floor of the [facility] near [facility] for a chest x-ray. [...] your incisions. Do NOT lift, push or plant puller 5 pounds for six weeks. Do [...] Donna Rosario CT Surgery Nurse Navigator at [phone] Wednesday through Wednesday 7am- 3:30pm [facility] [phone] after 3:30 pm, weekends and holidays - ask for the CT surgeon conductor pullman. * Progress Notes - Alejandro Sandoval PA [...] sounds present and normoactivex 4 quadrants SKIN: [place], warm, and dry. No rash, sores, or [...] Post-Operative Pain - continue home Suboxone - [facility] Obesity (POA) - BMI 32 - complicates all aspects of care Plan: - continue IV abx per ID - continue wound vac Cardiothoracic Surgery [phone] * Anesthesia PACU Signout - Umberto Davis DO - 02/26/2025 12:25 PM EDT Patient: Aelx Amaya Anesthesia Type: general Vitals Value Taken [...] CORONARY ARTERY BYPASS GRAFTING: Date: 02/26/2025 Location: [place] [facility] Name: Alex Amaya, : 1990, Pre-operative [...] suboxone, infectious endocarditisrequiring tricuspid valve repair in [place] in 2019. He states that he had to have several incision and drainages of the superior aspect of his sternotomy scar that [facility] due to drainage [...] midnight. Pacheco Ocasio MD Cardiothoracic Surgery Pager: [phone] * Significant Event - Alejandro Sandoval PA - 02/25/2025 1:35 PM EDT Patient seen and evaluated with Dr Daniel. Will go to OR tomorrow for chest washout and removal of sternal plates with Dr Daniel. Pre-op orders placed. Consent obtained and placed in paper chart. NPOp MN. CT Surgery [phone] * Consults - Kinga Mc MD - [...] valve repair with a DeVega Procedure at [facility] (2019), multiple I&Ds of superior sternotomy site most recent in 2021, and chronic drainage of sternotomy (last episode 3 months prior) who [facility] with new and worsened superior sternotomy drainage. MDET team were consulted to provide recommendations on therapy and management. Mr. Amaya first noted repeat drainage on 02/19/25, associated with fevers, chills, and swelling. He went to a local ED and was discharged. Given no change he then went to [facility] Chest showed a fluid collection anterior to the sternum and was transferred to for ID follow up and CT surgery evaluation. Upon arrival to on 02/25 blood cultures were taken and have NGTD. Wound cultures have a GS positive for GPC in pairs and clusters. He was started on Vancomycin and Zosyn, [facility] Daniel. Additional pertinent admission workup includes Hep C antibodypositivity, HIV non-reactive, CRP of 282.5, and an ESR of 65. When spoken to Mr. Amaya endorses persistent drainage from his sternal wound. In the room therewas considerable drainage on his dressing, which ID team changed. He endorsed the above history anddescribes following with a weaver tire cord Dr. Park. Social: Was recently incarcerated until [...] Value Units Date/Time Blood Culture (Aerobic/Anaerobet Set) [[id number]] Collected: 02/25/25317 Order Status: Completed Specimen: Blood, Venous Updated: 02/25/25 0607 Culture Culture in lab Blood Culture (Aerobic/Anaerobet Set) [[id number]] Collected: 02/25/25317 Order Status: Completed Specimen: Blood, Venous Updated: 02/25/25 0601 Culture Culture in lab Wound Culture and Gram Stain [[id number]] (Abnormal) Collected: 02/25/25 2767 Order Status: Completed Specimen: Swab from Cutaneous skin (specify site) Updated: 05/25/25 0524 Gram Stain Result Numerous Polymorphonuclear leukocytes Numerous Gram positive cocci in pairs Numerous Gram positive cocci in clusters Antibiotics: Vancomycin 02/25-P Zosyn 02/25-P Assessment: Alex Amaya is a 34 y.o. male with history of IVDU on suboxone, nTVie s/p valve repair with a DeVega Procedure at [facility] (2019), multiple I&Ds of superior sternotomy site most recent in 2021, and chronic drainage of sternotomy (last episode 3 months prior) who [facility] with new and worsened superior sternotomy drainage. MDET team were consulted to provide recommendations on therapy and management. Cultures have not grown any specific organisms at this time, however GS with GPC in pairs and clusters. Agree with washout tomorrow and would obtain cultures. At this time can continue antibiotic therapy. # Hx of nTV ie s/p DeVega Procedure at [facility] (2019) # Sternotomy Site SSTI # [...] ID will follow. Sherman Gonzáles MD Pager: [phone] I spent greater than 110 minutes performing the following components of the encounter (on the day of the encounter): reviewing history, examining the patient, reviewing imaging and/or labs, echo, ECGand/or other imaging results, counseling the patient and family/caregiver, communicating with otherhealth wound care center consultant. The patient is receiving directed antibiotic therapy which requires monitoring of daily labs for toxicities. Greater than 50% of the time spent on the encounter was [id number] providing direct patient care, counseling for the patient/caregiver, and care coordination. The following complex inpatient infectious disease services were performed today: Complex antimicrobial therapy counseling and treatment * Progress Notes - Marcos Hopper, PharmD - 02/25/2025 4:59 AM EDT Pharmacokinetic [...] monitoring recommendations as appropriate. Thank you, Marcos Hopper, PharmD, [facility] Clinical Staff Pharmacist * H&P [...] suboxone, infectious endocarditisrequiring tricuspid valve repair in [place] in 2019. He states that he had to have several incision and drainages of the superior aspect of his sternotomy scar that [facility] due to drainage [...] and got worse so [facility] he was found to have the [...] Tobacco Use: Medium Risk (01/09/2025) Received from [employer] Patient History Smoking Tobacco Use: Former Smokeless [...] suboxone, infectious endocarditisrequiring tricuspid valve repair in [place] in 2019. He states that he had to have several incision and drainages of the superior aspect of his sternotomy scar that occurred in the [facility] due to drainage [...] and got worse so he went to [facility] where he was found to have the [...] infectious endocarditis requiring open heart surgery at [facility] (2019) c/b multiple episodes of medial sternotomy site infection requiring debridement that [facility] at a [facility] (most recent ~2021) who presents with a draining wound at the superior portion of his sternotomy scar with concern for abscess. He states that when he was first postop from his original surgery, he had to have several incision and drainages of the superior aspect of his sternotomy scar that occurred in [facility]. He had not [...] and got worse so he went to [facility] where he was found to have the chest abscess. He was transferred to [facility] for evaluation with CT surgery and ID History provided by: Patient and medical records spanish interpreter/translator used: No Patient History Medical History[1] Surgical [...] (Not yet assigned) Acknowledged VIRGINIA LEWIS 02/25/25 0308 Blood Culture (Aerobic/Anaerobet Set) STAT In process VIRGINIA LEWIS 02/25/25 030 Blood Culture (Aerobic/Anaerobet Set) STAT In process VIRGINIA LEWIS 02/25/25 030 Hepatitis C Antibody - ED Once Final result VIRGINIA LEWIS 02/25/25 030 ED Protocol - HIV 1/2 Antibody/Antigen Screen Once Final result VIRGINIA LEWIS 02/25/25 030 ED HIV 1/2 Antibody/Antigen Screen w/Reflex to HIV 1/2 Differentiation PROCEDURE ONCE Final result VIRGINIA LEWIS 02/25/25 030 CBC w/diff STAT Final result VIRGINIA LEWIS 02/25/25 030 CMP STAT Final result VIRGINIA LEWIS 02/25/25 030 Magnesium STAT Final result VIRGINIA LEWIS 02/25/25 030 Phosphorus STAT Final result VIRGINIA LEWIS 02/25/25 030 C-Reactive protein STAT Final result VIRGINIA LEWIS 02/25/25 0308 Sed rate, automated STAT Final result VIRGINIA LEWIS 02/25/25 030 Wound Culture and Gram Stain STAT Collected [facility]IRGINIA LEWIS ED Course as of 02/25/25 0511 Sun February 25, 2025 0307 On initial evaluation, pt states that [JG] [address], evidence of extensive subcutaneous edema and infection in the anterior chest wall with fluid collection [JG] 0314 Reviewed of records from [facility], given 1 g ceftriaxone at 19:47. Tmax [...] None Disposition Admit Admitting/Attending Physician: SHERLYN DANIEL [[id number]] Provider Care Team: CVT CARDIAC SURGERY [[id number]] Are they the primary team?: Yes [1] - Virginia Lewis MD Internal Medicine, PGY-2 [phone] or via CredSimple chat [1] Past Medical History: Diagnosis Date [...] Description 04/10/2025 8:30 AM EDT Office Visit [facility] [address] [place], [place] [phone] Keny Chin MD [address] [facility] [address] [place], [place] Pending Results Name Type Priority Associated Diagnoses [...] Roper RN Authorized by: Sherlyn Daniel MD Cross Protocol: Verbal consent obtained?: Yes Written consent [...] vein Patient position: Flat Catheter Lot #: [id number] Catheter child psychiatrist: [employer] Catheter placed: Single lumen Catheter size: 4 [...] LAB HEMATOLOGY METHOD 03/03/2025 3:14 AM EDT [facility] Platelet Estimate Platelet smear estimate consistent with automated count LAB HEMATOLOGY METHOD 03/03/2025 3:14 AM EDT [facility] Blood Venous blood specimen / Unknown Venipuncture / Unknown 03/03/2025 2:11 AM EDT 03/03/2025 2:25 AM EDT us Kelsie Carty APRN LAB BLOOD ORDERABLES Final R esult [facility] [address] [place] [address] * (ABNORMAL) Manual Differential (03/03/2025 2:11 AM EDT) Blasts % 0 % LAB HEMATOLOGY METHOD 03/03/2025 3:14 AM EDT [facility] Promyelocytes % 0 % LAB HEMATOLOGY METHOD 03/03/2025 3:14 AM EDT [facility] Myelocytes % 2 % LAB HEMATOLOGY METHOD 03/03/2025 3:14 AM EDT [facility] Metamyelocytes % 3 % LAB HEMATOLOGY METHOD 03/03/2025 3:14 AM EDT [facility] Neutrophils % 75 % LAB HEMATOLOGY METHOD 03/03/2025 3:14 AM EDT [facility] Lymphocytes % 14 % LAB HEMATOLOGY METHOD 03/03/2025 3:14 AM EDT [facility] Reactive Lymphocytes % 0 % LAB HEMATOLOGY METHOD 03/03/2025 3:14 AM EDT [facility] Monocytes % 3 % LAB HEMATOLOGY METHOD 03/03/2025 3:14 AM EDT [facility] Eosinophils % 3 % LAB HEMATOLOGY METHOD 03/03/2025 3:14 AM EDT [facility] Basophils % 0 % LAB HEMATOLOGY METHOD 03/03/2025 3:14 AM EDT [facility] Blasts Absolute 0.00 10*3/UL LAB HEMATOLOGY METHOD 03/03/2025 3:14 AM EDT [facility] Promyelocytes Absolute 0.00 10*3/uL LAB HEMATOLOGY METHOD 03/03/2025 3:14 AM EDT [facility] Myelocytes Absolute 0.21 10*3/uL LAB HEMATOLOGY METHOD 03/03/2025 3:14 AM EDT [facility] Metamyelocytes Absolute 0.31 10*3/uL LAB HEMATOLOGY METHOD 03/03/2025 3:14 AM EDT [facility] Neutrophils Absolute 7.72(H) 1.60 - 6.10 10*3/uL LAB HEMATOLOGY METHOD 03/03/2025 3:14 AM EDT [facility] Lymphocytes Absolute 1.44 1.20 - 3.90 10*3/uL LAB HEMATOLOGY METHOD 03/03/2025 3:14 AM EDT [facility] Reactive Lymphocytes Absolute 0.00 10*3/uL LAB HEMATOLOGY METHOD 03/03/2025 3:14 AM EDT [facility] Monocytes Absolute 0.31 0.30 - 0.90 10*3/uL LAB HEMATOLOGY METHOD 03/03/2025 3:14 AM EDT [facility] Eosinophils Absolute 0.31 0.00 - 0.50 10*3/uL LAB HEMATOLOGY METHOD 03/03/2025 3:14 AM EDT [facility] Basophils Absolute 0.00 0.00 - 0.10 10*3/uL LAB HEMATOLOGY METHOD 03/03/2025 3:14 AM EDT [facility] Blood Venous blood specimen / Unknown Venipuncture / Unknown 03/03/2025 2:11 AM EDT 03/03/2025 2:25 AM EDT us Kelsie Carty APRN LAB BLOOD ORDERABLES Final R esult [facility] [address] [place] [address] * (ABNORMAL) Hepatic function panel (03/03/2025 2:11 AM EDT) Conjugated Bilirubin, Plasma <0.2 <=0.3 mg/dL 03/03/2025 2:55 AM EDT [facility] Comment:Hemolyzed, result ma y be falsely decreased. Alkaline Phosphatase, Plasma 99 40 - 115 U/L 03/03/2025 2:55 AM EDT [facility] Total Bilirubin, Plasma 0.3 0.2 - 1.1 mg/dL 03/03/2025 2:55 AM EDT [facility] Albumin, Plasma 3.3(L) 3.5 - 5.2 g/dL 03/03/2025 2:55 AM EDT [facility] Total Protein 7.9 6.3 - 7.9 g/dL 03/03/2025 2:55 AM EDT [facility] ALT, Plasma 36 10 - 50 U/L 03/03/2025 2:55 AM EDT [facility] AST, Plasma 46 10 - 50 U/L 03/03/2025 2:55 AM EDT [facility] Comment:Hemolyzed, result ma y be falsely increased. Blood Venous blood specimen / Unknown Venipuncture / Unknown 03/03/2025 2:11 AM EDT 03/03/2025 2:23 AM EDT Kelsie Carty APRN LAB BLOOD ORDERABLES Final R esult [facility] [address] [place] [address] * Magnesium, Plasma (03/03/2025 2:11 AM EDT) Magnesium, Plasma 2.2 1.9 - 2.4 mg/dL 03/03/2025 2:55 AM EDT [facility] Blood Venous blood specimen / Unknown Venipuncture / Unknown 03/03/2025 2:11 AM EDT 03/03/2025 2:23 AM EDT us Kelsie Gilbert Carty GROCERY CASHIER LAB BLOOD ORDERABLES Final R esult [facility] [address] [place] [address] * CBC and Differential (03/03/2025 2:11 AM EDT) WBC Count 10.29 3.70 - 10.30 10*3/uL LAB HEMATOLOGY METHOD 03/03/2025 3:15 AM EDT [facility] RBC Count 5.48 4.60 - 6.10 10*6/uL LAB HEMATOLOGY METHOD 03/03/2025 3:15 AM EDT [facility] HGB 15.6 13.7 - 17.5 g/dL LAB HEMATOLOGY METHOD 03/03/2025 3:15 AM EDT [facility] HCT 47.6 40.0 - 51.0 % LAB HEMATOLOGY METHOD 03/03/2025 3:15 AM EDT [facility] Platelet Count 329 155 - 369 10*3/uL LAB HEMATOLOGY METHOD 03/03/2025 3:15 AM EDT [facility] MCV 87 79 - 98 fL LAB HEMATOLOGY METHOD 03/03/2025 3:15 AM EDT [facility] MCH 28.5 26.0 - 32.0 pg LAB HEMATOLOGY METHOD 03/03/2025 3:15 AM EDT [facility] MCHC 32.8 30.7 - 35.5 g/dL LAB HEMATOLOGY METHOD 03/03/2025 3:15 AM EDT [facility] RDW 12.9 11.5 - 14.5 % LAB HEMATOLOGY METHOD 03/03/2025 3:15 AM EDT [facility] MPV 9.1 8.8 - 12.5 fL LAB HEMATOLOGY METHOD 03/03/2025 3:15 AM EDT [facility] nRBC 0.0 <=0.0 per 100 WBCs LAB HEMATOLOGY METHOD 03/03/2025 3:15 AM EDT [facility] Differential Type Manual LAB HEMATOLOGY METHOD 03/03/2025 3:15 AM EDT [facility] Blood Venous blood specimen / Unknown Venipuncture / Unknown 03/03/2025 2:11 AM EDT 03/03/2025 2:25 AM EDT Narrative [facility] - 03/03/2025 3:15 AM EDT [...] ORDERABLES Final R esult Performing Organization Address [facility] [place] [address] * Blood Culture (Aerobic/Anaerobet Set) (03/03/2025 2:11 AM EDT) Culture No growth at day 5 GEENA 03/08/2025 4:02 AM EDT [facility] Blood Structure of antecubital vein / Unknown Venipuncture / Unknown 03/03/2025 2:11 AM EDT 03/03/2025 3:04 AM EDT [facility] - 03/08/2025 4:02 AM EDT Low blood volume submitted, results may be compromised Kelsie Carty APRN LAB MICROBIOLOGY - GENERAL O RDERABLES Final Result Performing Organization Address City/[facility]/[place] [address] * Blood Culture (Aerobic/Anaerobet Set) (03/03/2025 2:11 AM EDT) Culture No growth at day 5 GEENA 03/08/2025 4:02 AM EDT [facility] Blood Venous blood specimen / Unknown Venipuncture / Unknown 03/03/2025 2:11 AM EDT 03/03/2025 3:03 AM EDT us Kelsie Gilbert Carty [employer] LAB MICROBIOLOGY - GENERAL O RDERABLES Final Result [facility] [address] [place] [address] * (ABNORMAL) CBC W/O Differential (03/01/2025 3:55 AM EDT) Pathologist [facility] WBC Count 7.81 3.70 - 10.30 10*3/uL LAB HEMATOLOGY METHOD 03/01/2025 4:12 AM EDT [facility] RBC Count 4.51(L) 4.60 - 6.10 10*6/uL LAB HEMATOLOGY METHOD 03/01/2025 4:12 AM EDT [facility] HGB 12.8(L) 13.7 - 17.5 g/dL LAB HEMATOLOGY METHOD 03/01/2025 4:12 AM EDT [facility] HCT 40.5 40.0 - 51.0 % LAB HEMATOLOGY METHOD 03/01/2025 4:12 AM EDT [facility] Platelet Count 292 155 - 369 10*3/uL LAB HEMATOLOGY METHOD 03/01/2025 4:12 AM EDT [facility] MCV 90 79 - 98 fL LAB HEMATOLOGY METHOD 03/01/2025 4:12 AM EDT [facility] MCH 28.4 26.0 - 32.0 pg LAB HEMATOLOGY METHOD 03/01/2025 4:12 AM EDT [facility] MCHC 31.6 30.7 - 35.5 g/dL LAB HEMATOLOGY METHOD 03/01/2025 4:12 AM EDT [facility] RDW 13.0 11.5 - 14.5 % LAB HEMATOLOGY METHOD 03/01/2025 4:12 AM EDT [facility] MPV 9.5 8.8 - 12.5 fL LAB HEMATOLOGY METHOD 03/01/2025 4:12 AM EDT [facility] nRBC 0.0 <=0.0 per 100 WBCs LAB HEMATOLOGY METHOD 03/01/2025 4:12 AM EDT [facility] Blood Venous blood specimen / Unknown Venipuncture / Unknown 03/01/2025 3:55 AM EDT 03/01/2025 4:04 AM EDT us Catalina Cuba MD LAB BLOOD ORDERABLES Final Result [facility] [address] [place] [address] * (ABNORMAL) Basic metabolic panel (03/01/2025 3:55 AM EDT) Glucose, Plasma 94 74 - 99 mg/dL 03/01/2025 4:37 AM EDT [facility] BUN, Plasma 14 7 - 21 mg/dL 03/01/2025 4:37 AM EDT [facility] Creatinine, Plasma 0.92 0.70 - 1.20 mg/dL 03/01/2025 4:37 AM EDT [facility] BUN/Creatinine Ratio 15 03/01/2025 4:37 AM EDT [facility] Sodium, Plasma 140 136 - 145 mmol/L 03/01/2025 4:37 AM EDT [facility] Potassium, Plasma 4.4 3.6 - 4.9 mmol/L 03/01/2025 4:37 AM EDT [facility] Chloride, Plasma 105 97 - 107 mmol/L 03/01/2025 4:37 AM EDT [facility] CO2, Plasma 25 22 - 29 mmol/L 03/01/2025 4:37 AM EDT [facility] Anion Gap 10 6 - 16 mmol/L 03/01/2025 4:37 AM EDT [facility] Total Calcium, Plasma 8.8(L) 8.9 - 10.2 mg/dL 03/01/2025 4:37 AM EDT [facility] eGFRcr 110.6 mL/min/1.7 3m*2 03/01/2025 4:37 AM EDT [facility] Comment:Reported eGFRcr in m L/min/1.73m2 is based the CKD-EPI 2020 equation that does not use a race coefficient. Blood Venous blood specimen / Unknown Venipuncture / Unknown 03/01/2025 3:55 AM EDT 03/01/2025 4:04 AM EDT us Catalina Cuba MD LAB BLOOD ORDERABLES Final Result Performing Organization Address City/[facility]/ZIP Co de Phone Number [facility] [address] [place] [address] * Blood Culture (Aerobic/Anaerobet Set) (03/01/2025 3:45 AM EDT) Culture No growth at day 5 GEENA 03/06/2025 5:01 AM EDT [facility] Blood Venous blood specimen / Unknown Venipuncture / Unknown 03/01/2025 3:45 AM EDT 03/01/2025 4:45 AM EDT us Kelsie Carty APRN LAB MICROBIOLOGY - GENERAL O RDERABLES Final Result Performing Organization Address City/[facility]/ZIP Co de Phone Number [facility] [address] [place] [address] * Blood Culture (Aerobic/Anaerobet Set) (03/01/2025 3:30 AM EDT) Culture No growth at day 5 GEENA 03/06/2025 5:01 AM EDT [facility] Blood Venous blood specimen / Unknown Venipuncture / Unknown 03/01/2025 3:30 AM EDT 03/01/2025 4:45 AM EDT us Kelsie Carty APRN LAB MICROBIOLOGY - GENERAL O RDERABLES Final Result [facility] [address] [place] [address] * Magnesium (02/28/2025 4:03 AM EDT) Magnesium, Plasma 2.2 1.9 - 2.4 mg/dL 02/28/2025 4:37 AM EDT [facility] Blood Venous blood specimen / Unknown Venipuncture / Unknown 02/28/2025 4:03 AM EDT 02/28/2025 4:10 AM EDT us Sherlyn Daniel MD LAB BLOOD ORDERABLES Final Res ult [facility] [address] [place] [address] * (ABNORMAL) CBC W/O Differential (02/28/2025 4:03 AM EDT) WBC Count 7.50 3.70 - 10.30 10*3/uL LAB HEMATOLOGY METHOD 02/28/2025 4:26 AM EDT [facility] RBC Count 4.59(L) 4.60 - 6.10 10*6/uL LAB HEMATOLOGY METHOD 02/28/2025 4:26 AM EDT [facility] HGB 13.1(L) 13.7 - 17.5 g/dL LAB HEMATOLOGY METHOD 02/28/2025 4:26 AM EDT [facility] HCT 40.6 40.0 - 51.0 % LAB HEMATOLOGY METHOD 02/28/2025 4:26 AM EDT [facility] Platelet Count 252 155 - 369 10*3/uL LAB HEMATOLOGY METHOD 02/28/2025 4:26 AM EDT [facility] MCV 89 79 - 98 fL LAB HEMATOLOGY METHOD 02/28/2025 4:26 AM EDT [facility] MCH 28.5 26.0 - 32.0 pg LAB HEMATOLOGY METHOD 02/28/2025 4:26 AM EDT [facility] MCHC 32.3 30.7 - 35.5 g/dL LAB HEMATOLOGY METHOD 02/28/2025 4:26 AM EDT [facility] RDW 13.2 11.5 - 14.5 % LAB HEMATOLOGY METHOD 02/28/2025 4:26 AM EDT [facility] MPV 9.8 8.8 - 12.5 fL LAB HEMATOLOGY METHOD 02/28/2025 4:26 AM EDT [facility] nRBC 0.0 <=0.0 per 100 WBCs LAB HEMATOLOGY METHOD 02/28/2025 4:26 AM EDT [facility] Blood Venous blood specimen / Unknown Venipuncture / Unknown 02/28/2025 4:03 AM EDT 02/28/2025 4:12 AM EDT us Sherlyn Daniel MD LAB BLOOD ORDERABLES Final Res ult [facility] [address] [place] [address] * (ABNORMAL) Basic metabolic panel (02/28/2025 4:03 AM EDT) Pathologist [facility] Glucose, Plasma 110(H) 74 - 99 mg/dL 02/28/2025 4:37 AM EDT [facility] BUN, Plasma 18 7 - 21 mg/dL 02/28/2025 4:37 AM EDT [facility] Creatinine, Plasma 1.15 0.70 - 1.20 mg/dL 02/28/2025 4:37 AM EDT [facility] BUN/Creatinine Ratio 16 02/28/2025 4:37 AM EDT [facility] Sodium, Plasma 136 136 - 145 mmol/L 02/28/2025 4:37 AM EDT [facility] Potassium, Plasma 3.8 3.6 - 4.9 mmol/L 02/28/2025 4:37 AM EDT [facility] Chloride, Plasma 104 97 - 107 mmol/L 02/28/2025 4:37 AM EDT [facility] CO2, Plasma 24 22 - 29 mmol/L 02/28/2025 4:37 AM EDT [facility] Anion Gap 8 6 - 16 mmol/L 02/28/2025 4:37 AM EDT [facility] Total Calcium, Plasma 8.6(L) 8.9 - 10.2 mg/dL 02/28/2025 4:37 AM EDT [facility] eGFRcr 84.6 mL/min/1.7 3m*2 02/28/2025 4:37 AM EDT [facility] Comment:Reported eGFRcr in m L/min/1.73m2 is based the CKD-EPI 2020 equation that does not use a race coefficient. Blood Venous blood specimen / Unknown Venipuncture / Unknown 02/28/2025 4:03 AM EDT 02/28/2025 4:10 AM EDT us Sherlyn Daniel MD LAB BLOOD ORDERABLES Final Res ult [facility] [address] [place] [address] * PERIPHERAL IV (SMARTFORM LINK) (02/27/2025 6:13 [...] regurgitation. Tricuspid Valve: The leaflets appear thickened. 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 There appears to be restricted [...] is no recent study available for direct [id number] comparison. Left Ventricle Based on the linear [...] stenosis. Tricuspid Valve The leaflets appear thickened. 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 There appears to be restricted [...] is no recent study available for direct [id number] comparison. Wall Scoring Baseline Score Index: 1.00 [...] - 40.0 ug/mL 02/27/2025 11:21 AM EDT [facility] Blood Venous blood specimen / Unknown Venipuncture / Unknown 02/27/2025 10:46 AM EDT 02/27/2025 10:52 AM EDT Narrative [facility] - 02/27/2025 11:21 AM EDT Therapeutic Peak level: 20-40ug/mL Supra-therapeutic Peak level: >40 ug/mL us Alejandro AARON LAB BLOOD ORDERABLES Final R esult [facility] [address] [place] [address] * (ABNORMAL) Lipid panel (02/27/2025 4:33 AM EDT) Cholesterol, Plasma 108 <200 mg/dL 02/27/2025 5:14 AM EDT [facility] Comment: Cholesterol Reference Range (age >17 years): Desirable <200 mg/dL Borderline 200 to 239 mg/dL Undesirable >239 mg/dL HDL 28(L) >=40 mg/dL 02/27/2025 5:14 AM EDT [facility] Comment: HDL Cholesterol Reference Ranges (age >17 years): Female, acceptable > or = 50 mg/dL Male, acceptable > or = 40 mg/dL Triglycerides, Plasma 94 <150 mg/dL 02/27/2025 5:14 AM EDT [facility] Comment: Triglyceride Reference Range (age >17 years): Desirable: <150 mg/dL Borderline high: 150 to 199 mg/dL High: 200 to 499 mg/dL Very high: >499 mg/dL Increased risk of pancreatitis: >1000 mg/dL Cholesterol/HDL Ratio 4 02/27/2025 5:14 AM EDT [facility] LDL, Calculated 62 <100 mg/dL 5:14 AM EDT [facility] Comment: LDL Cholesterol Reference Range [...] 12 hours? No 02/27/2025 5:14 AM EDT [facility] Blood Venous blood specimen / Unknown Venipuncture / Unknown 02/27/2025 4:33 AM EDT 02/27/2025 4:42 AM EDT Alejandro AARON LAB BLOOD ORDERABLES Final R esult Performing Organization Address City/[facility]/ZIP Co de Phone Number [facility] [address] [place] [address] * Hemoglobin A1c (02/27/2025 4:33 AM EDT) Hemoglobin A1c 5.4 <5.7 % 02/27/2025 7:06 AM EDT [facility] Blood Venous blood specimen / Unknown Venipuncture / Unknown 02/27/2025 4:33 AM EDT 02/27/2025 4:45 AM EDT Narrative [facility] - 02/27/2025 7:06 AM EDT HA1C Interpretive Data: Diagnosis of Diabetes: Diabetic > or = 6.5% Pre-diabetic 5.7 to 6.4% Non-diabetic < or = 5.6% Glycemic Targets for Type I and Type II Diabetics: Non- Adults <7.0% Adults <6.0% Children and Adolescents <7.5% Source: [place] [employer]. Standards of medical care in diabetes,2017. Diabetes Care.2017:40 (suppl 1):S1-S135. Alejandro AARON LAB BLOOD ORDERABLES Final R esult Performing Organization Address [facility] Co de Phone Number [facility] [address] [place] [address] * (ABNORMAL) Basic metabolic panel (02/27/2025 4:33 AM EDT) Glucose, Plasma 128(H) 74 - 99 mg/dL 02/27/2025 5:14 AM EDT [facility] BUN, Plasma 18 7 - 21 mg/dL 02/27/2025 5:14 AM EDT [facility] Creatinine, Plasma 1.01 0.70 - 1.20 mg/dL 02/27/2025 5:14 AM EDT [facility] BUN/Creatinine Ratio 18 02/27/2025 5:14 AM EDT [facility] Sodium, Plasma 135(L) 136 - 145 mmol/L 02/27/2025 5:14 AM EDT [facility] Potassium, Plasma 4.6 3.6 - 4.9 mmol/L 02/27/2025 5:14 AM EDT [facility] Chloride, Plasma 101 97 - 107 mmol/L 02/27/2025 5:14 AM EDT [facility] CO2, Plasma 24 22 - 29 mmol/L 02/27/2025 5:14 AM EDT [facility] Anion Gap 10 6 - 16 mmol/L 02/27/2025 5:14 AM EDT [facility] Total Calcium, Plasma 9.2 8.9 - 10.2 mg/dL 02/27/2025 5:14 AM EDT [facility] eGFRcr 98.8 mL/min/1.7 3m*2 02/27/2025 5:14 AM EDT [facility] Comment:Reported eGFRcr in m L/min/1.73m2 is based the CKD-EPI 2020 equation that does not use a race coefficient. Blood Venous blood specimen / Unknown Venipuncture / Unknown 02/27/2025 4:33 AM EDT 02/27/2025 4:42 AM EDT us Sherlyn Daniel MD LAB BLOOD ORDERABLES Final Res ult [facility] [address] [place] [address] * (ABNORMAL) CBC W/O Differential (02/27/2025 4:33 AM EDT) WBC Count 9.62 3.70 - 10.30 10*3/uL LAB HEMATOLOGY METHOD 02/27/2025 4:53 AM EDT [facility] RBC Count 4.58(L) 4.60 - 6.10 10*6/uL LAB HEMATOLOGY METHOD 02/27/2025 4:53 AM EDT [facility] HGB 13.1(L) 13.7 - 17.5 g/dL LAB HEMATOLOGY METHOD 02/27/2025 4:53 AM EDT [facility] HCT 40.8 40.0 - 51.0 % LAB HEMATOLOGY METHOD 02/27/2025 4:53 AM EDT [facility] Platelet Count 247 155 - 369 10*3/uL LAB HEMATOLOGY METHOD 02/27/2025 4:53 AM EDT [facility] MCV 89 79 - 98 fL LAB HEMATOLOGY METHOD 02/27/2025 4:53 AM EDT [facility] MCH 28.6 26.0 - 32.0 pg LAB HEMATOLOGY METHOD 02/27/2025 4:53 AM EDT [facility] MCHC 32.1 30.7 - 35.5 g/dL LAB HEMATOLOGY METHOD 02/27/2025 4:53 AM EDT [facility] RDW 13.1 11.5 - 14.5 % LAB HEMATOLOGY METHOD 02/27/2025 4:53 AM EDT [facility] MPV 10.4 8.8 - 12.5 fL LAB HEMATOLOGY METHOD 02/27/2025 4:53 AM EDT [facility] nRBC 0.0 <=0.0 per 100 WBCs LAB HEMATOLOGY METHOD 02/27/2025 4:53 AM EDT [facility] Blood Venous blood specimen / Unknown Venipuncture / Unknown 02/27/2025 4:33 AM EDT 02/27/2025 4:45 AM EDT us Sherlyn Daniel MD LAB BLOOD ORDERABLES Final Res ult [facility] [address] [place] [address] * Blood Culture (Aerobic/Anaerobet Set) (02/27/2025 4:30 AM EDT) Culture No growth at day 5 GEENA 03/04/2025 5:01 AM EDT [facility] Blood Venous blood specimen / Unknown Venipuncture / Unknown 02/27/2025 4:30 AM EDT 02/27/2025 4:47 AM EDT Sherman Gonzáles MD LAB MICROBIOLOGY - GENERAL O RDERABLES Final Result Performing Organization Address [facility] [place] [address] * Blood Culture (Aerobic/Anaerobet Set) (02/27/2025 4:00 AM EDT) Culture No growth at day 5 GEENA 03/04/2025 5:01 AM EDT [facility] Blood Venous blood specimen / Unknown Venipuncture / Unknown 02/27/2025 4:00 AM EDT 02/27/2025 4:47 AM EDT Sherman Gonzáles MD LAB MICROBIOLOGY - GENERAL O RDERABLES Final Result Performing Organization Address [facility] [place] [address] * XR Chest 1 View (02/27/2025 2:37 [...] with the final edited report. Drafted by EILENE Alan on 02/27/2025 8:33 AM Final report signed by Cj Paulino MD on 02/27/2025 8:56 AM Sherlyn Daniel MD IMG XR PROCEDURES Final Result * Fungal Culture, Tissue and DANY (02/26/2025 10:10 AM EDT) Culture Reading Mycological 4 Weeks No Fungal Growth at 4 Weeks 03/27/2025 8:06 AM EDT [facility] DANY Source not suitable for smear 03/27/2025 8:06 AM EDT [facility] Foreign Body Bone structure of sternum / Unknown 02/26/2025 10:10 AM EDT 02/26/2025 11:21 AM EDT Comment:Pre-op diagnosis: Chest wall abscess [L02.213] Sherlyn Daniel MD LAB MICROBIOLOGY - GENERAL ORD ERABLES Final Result [facility] [address] [place] [address] * (ABNORMAL) Routine Culture and Gram Stain (02/26/2025 10:10 AM EDT) Culture Light Growth 03/01/2025 3:23 PM EDT [facility] Culture Staphylococcus aureus(A) GEENA 03/01/2025 3:23 PM EDT [facility] Foreign Body Bone structure of [...] Staphylococcus aureus Vancomycin GEENA <=0.5 ug/ml: Susceptible us Sherlyn Daniel MD LAB MICROBIOLOGY - GENERAL ORD ERABLES Final Result Performing Organization Address City/[facility] Co de Phone Number [facility] [address] [place] [address] * Anaerobic Culture (02/26/2025 10:10 AM EDT) Culture No anaerobes isolated 03/03/2025 5:50 AM EDT [facility] Foreign Body Bone structure of sternum / Unknown 02/26/2025 10:10 AM EDT 02/26/2025 11:21 AM EDT Comment:Pre-op diagnosis: Chest wall abscess [L02.213] Sherlyn Daniel MD LAB MICROBIOLOGY - GENERAL ORD ERABLES Final Result Performing Organization Address [facility] Co de Phone Number [facility] [address] [place] [address] * (ABNORMAL) POCT arterial blood gas gem (02/26/2025 9:42 AM EDT) pH, Arterial 7.42 7.35 - 7.45 02/26/2025 9:44 AM EDT [facility] pCO2, Arterial 41 32 - 45 mm Hg 02/26/2025 9:44 AM EDT [facility] pO2, Arterial 105 83 - 108 mm Hg 02/26/2025 9:44 AM [facility] SO2, Arterial 99(H) 94 - 98 % 02/26/2025 9:44 AM [facility] Base Excess, Arterial 1.9 -2 - 3 mmol/L 02/26/2025 9:44 AM [facility] HCO3, Arterial 26.6(H) 22 - 26 mmol/L 02/26/2025 9:44 AM [facility] Total Hemoglobin, Arterial, Whole Blood 13.6(L) 13.7 - 17.5 g/dL 02/26/2025 9:44 AM [facility] Hematocrit, Arterial 41.0 40 - 51.0 % 02/26/2025 9:44 AM [facility] Sodium, Arterial 135(L) 136 - 145 mmol/L 02/26/2025 9:44 AM [facility] Potassium, Arterial 4.1 3.6 - 4.9 mmol/L 02/26/2025 9:44 AM [facility] Chloride, Whole Blood 104 97 - 107 mmol/L 02/26/2025 9:44 AM [facility] Glucose, Arterial 106(H) 74 - 99 mg/dL 02/26/2025 9:44 AM [facility] Ionized Calcium, Arterial 4.7 4.6 - 5.1 mg/dL 02/26/2025 9:44 AM [facility] Lactate, Arterial 0.6 0.5 - 1.6 mmol/L 02/26/2025 9:44 AM [facility] Body Temperature 37.0 Celsius 02/26/2025 9:44 AM [facility] pH, Temp Corrected, Arterial 7.42 7.35 - 7.45 02/26/2025 9:44 AM [facility] pCO2, Temp Corrected, Arterial 41 32 - 45 mm Hg 02/26/2025 9:44 AM [facility] pO2, Temp Corrected, Arterial 105 83 - 108 mm Hg 02/26/2025 9:44 AM [facility] Manager Operational ID Carina Jordan 02/26/2025 9:44 AM [facility] Blood, Arterial Whole blood specimen / Unknown 02/26/2025 9:42 AM EDT 02/26/2025 9:44 AM EDT Sherlyn Daniel MD LAB POINT OF CARE TE ST DOCKED DEVICE UNSOLICITED RESULTS Final Result Performing Organization Address City/[facility]/ZIP Co de Phone Number [facility] [address] [place] [address] * (ABNORMAL) Abscess Culture and Gram Stain (02/26/2025 9:34 AM EDT) Culture Light Growth 03/01/2025 3:22 PM EDT [facility] Culture Staphylococcus aureus(A) GEENA 03/01/2025 3:22 PM EDT [facility] Comment:The organism value f or this result has been updated. These results have been appended to the previously preliminary verified report. Gram Stain Result Few Polymorphonuclear leukocytes(A) 03/01/2025 3:22 PM EDT [facility] Gram Stain Result Few Gram positive cocci in pairs(A) 03/01/2025 3:22 PM EDT [facility] Swab Bone structure of sternum [...] MICROBIOLOGY - GENERAL ORD ERABLES Final Result [facility] [address] [place] [address] * Fungal Culture, Routine (02/26/2025 9:34 AM EDT) Culture No Fungal Growth at 1 Week 03/06/2025 9:03 AM EDT [facility] Swab Bone structure of sternum / Unknown 02/26/2025 9:34 AM EDT 02/26/2025 11:01 AM EDT Comment:Pre-op diagnosis: Chest wall abscess [L02.213] Sherlyn Daniel MD LAB MICROBIOLOGY - GENERAL [place] [address] * Anaerobic Culture (02/26/2025 9:34 AM EDT) Culture No anaerobes isolated 03/03/2025 5:50 AM EDT [facility] Swab Bone structure of sternum / Unknown 02/26/2025 9:34 AM EDT 02/26/2025 11:01 AM EDT Comment:Pre-op diagnosis: Chest wall abscess [L02.213] Sherlyn Daniel MD LAB MICROBIOLOGY - GENERAL [place] [address] * Type and screen (02/25/2025 4:54 PM [...] ORDERABL ES Final Result Performing Organization Address City/[facility]/ZIP Co de Phone Number [facility] [address] [place] [address], * (ABNORMAL) Wound Culture and Gram Stain (02/25/2025 4:46 AM EDT) CULTURE READING WOUND Moderate Growth 02/27/2025 3:19 PM EDT [facility] CULTURE READING WOUND Staphylococcus aureus(A) GEENA 02/27/2025 3:19 PM EDT [facility] Comment:The organism value f or this result has been updated. These results have been appended to the previously preliminary verified report. Gram Stain Result Numerous Polymorphonuclear leukocytes(A) 02/27/2025 3:19 PM EDT [facility] Gram Stain Result Numerous Gram positive cocci in pairs(A) 02/27/2025 3:19 PM EDT [facility] Gram Stain Result Numerous Gram positive cocci in clusters(A) 02/27/2025 3:19 PM EDT [facility] Swab Skin structure / Unknown [...] GEENA >1 ug/ml: Resistant Staphylococcus aureus Tetracycline EGENA <=0.5 ug/ml: Susceptible Staphylococcus aureus Trimethoprim/Sulfa methoxazo le GEENA <=0.5/9.5 ug/ml: Susceptible Staphylococcus aureus Vancomycin GEENA 1 ug/ml: Susceptible Franco Guillory MD LAB MICROBIOLOGY - GENERAL ORD ERABLES Final Result [facility] [address] [place] [address] * (ABNORMAL) Bacterial ID Gram Positive (02/25/2025 3:18 AM EDT) Pathologist [facility] Staphylococcus Result Detected( A) Not Detected 02/26/2025 4:46 AM EDT [facility] Comment:Assess if contaminan t or clinically relevant pathogen. Consider clinical stability and immune status of patient. Blood Venous blood specimen / Unknown Venipuncture / Unknown 02/25/2025 3:18 AM EDT 02/25/2025 4:04 AM EDT Narrative [facility] - 02/26/2025 4:46 AM EDT [...] MICROBIOLOGY - GENERAL ORD ERABLES Final Result [facility] [address] [place] [address] * Hepatitis C Virus (HCV) Quantitative PCR - ED (02/25/2025 3:18 AM EDT) [facility] Hepatitis C Virus (HCV) Quantitative Interpretation Not Detected Not Detected. 02/27/2025 2:45 PM EDT [facility] [facility] Blood Venous blood specimen / Unknown Venipuncture / Unknown 02/25/2025 3:18 AM EDT 02/25/2025 3:53 AM EDT Narrative [facility] - 02/27/2025 2:45 PM EDT [...] Res ult Performing Organization Address [facility]/ZIP Co de Phone Number [facility] [address] [place] [address] * ED HIV 1/2 Antibody/Antigen Screen w/Reflex to HIV 1/2 Differentiation (02/25/2025 3:18 AM EDT) Pathologist [facility] HIV 1 & 2 Antibody/Antigen Screen Non Reactive Non Reactive 02/25/2025 4:35 AM EDT [facility] Comment:Screening for HIV 1 & 2 antibodies, and P24 antigen is NONREACTIVE. No confirmatory testing is required. Blood Venous blood specimen / Unknown Venipuncture / Unknown 02/25/2025 3:18 AM EDT 02/25/2025 3:53 AM EDT us Franco Guillory MD LAB BLOOD ORDERABLES Final Res ult [facility] [address] [place] [address] * (ABNORMAL) Hepatitis C Antibody - ED (02/25/2025 3:18 AM EDT) Hepatitis C Antibody Positive(A ) Negative 02/25/2025 4:40 AM EDT [facility] Blood Venous blood specimen / Unknown Venipuncture / Unknown 02/25/2025 3:18 AM EDT 02/25/2025 3:53 AM EDT us Franco Guillory MD LAB BLOOD ORDERABLES Final Res ult [facility] [address] [place] [address] * (ABNORMAL) Blood Culture (Aerobic/Anaerobet Set) (02/25/2025 3:18 AM EDT) Pathologist [facility] Culture Staphylococcus aureus(AA) GEENA 02/27/2025 1:21 PM EDT [facility] Comment: Isolated from aerobic and anaerobic culture bottles. The organism value for this result has been updated. These results have been appended to the previously preliminary verified report. Culture Staphylococcus coagulase negative(AA) GEENA 02/27/2025 1:21 PM EDT [facility] Comment: Isolated from aerobic and anaerobic culture bottles. Isolated from one bottle only in a 24-hour period. If workup required, contact bacteriology at [facility]. This organism may be associated with a contaminated culture. The organism value for this result has been updated. These results have been appended to the previously preliminary verified report. Gram Stain Gram positive cocci in clusters(AA) 02/27/2025 1:21 PM EDT [facility] Comment: Organism seen in Anaerobic Blood Culture Bottle. Positivity Date and Time to Detection: 02/25/2025. at 00 Day(s) and 16 Hour(s). This is an appended report. These results have been appended to a previously preliminary verified report. Gram Stain Gram positive cocci in clusters(AA) 02/27/2025 1:21 PM EDT [facility] Comment: Organism seen in Aerobic Blood Culture Bottle. Positivity Date and Time to Detection: 02/25/2025 at 00 Day(s) and 16 Hour(s). This is an appended report. These results have been appended to a previously preliminary verified report. Blood Venous blood specimen / Unknown Venipuncture / Unknown 02/25/2025 3:18 AM EDT 02/25/2025 4:04 AM EDT Narrative [facility] - 02/27/2025 1:21 PM EDT Anaerobic blood culture entered in duplicate. Organism Antibiotic Method Susceptibility Staphylococcus aureus Daptomycin GEENA <=1 ug/ml: Susceptible Staphylococcus aureus Linezolid GEENA <=1 ug/ml: Susceptible Staphylococcus aureus Oxacillin GEENA <=0.25 ug/ml: Susceptible Staphylococcus aureus Vancomycin GEENA 1 ug/ml: Susceptible Franco Guillory MD LAB MICROBIOLOGY - GENERAL ORD ERABLES Final Result Performing Organization Address City/[facility]/ZIP Co de Phone Number [facility] [address] [place] [address] * (ABNORMAL) Blood Culture (Aerobic/Anaerobet Set) (02/25/2025 3:18 AM EDT) [facility] Signature Culture Staphylococcus aureus(AA) 03/03/2025 12:34 PM EDT [facility] Comment: For susceptibility results refer to: - [id number] Isolated from aerobic and anaerobic culture bottles. The organism value for this result has been updated. These results have been appended to the previously preliminary verified report. Gram Stain Gram positive cocci in clusters(AA) 03/03/2025 12:34 PM EDT [facility] Comment: Organism seen in Anaerobic Blood Culture Bottle. Positivity Date and Time to Detection: 02/26/2025. at 00 Day(s) and 19 Hour(s). This is an appended report. These results have been appended to a previously preliminary verified report. Gram Stain Gram positive cocci in clusters(AA) 03/03/2025 12:34 PM EDT [facility] Comment: Organism seen in Aerobic [...] ORD ERABLES Final Result Performing Organization Address City/[facility]/ZIP Co de Phone Number [facility] [address] [place] [address] * (ABNORMAL) Sed rate, automated (02/25/2025 3:18 AM EDT) Sedimentation Rate 65(H) <15 mm/hr 2024 3:54 AM EDT [facility] Blood Venous blood specimen / Unknown Venipuncture / Unknown 02/25/2025 3:18 AM EDT 02/25/2025 3:40 AM EDT Franco Guillory MD LAB BLOOD ORDERABLES Final Res ult Performing Organization Address [facility]/[place] [address] * (ABNORMAL) C-Reactive protein (02/25/2025 3:18 AM EDT) CRP, Plasma 282.5(H) <=8.0 mg/L 02/25/2025 4:23 AM EDT [facility] Blood Venous blood specimen / Unknown Venipuncture / Unknown 02/25/2025 3:18 AM EDT 02/25/2025 3:53 AM EDT Narrative [facility] - 02/25/2025 4:23 AM EDT This CRP test is appropriate for assessment of infection, systemic inflammation and/or tissue injury. To assess cardiovascular disease risk order high sensitivity CRP (CRPH). us Franco Guillory MD LAB BLOOD ORDERABLES Final Res ult [facility] [address] [place] [address] * Phosphorus (02/25/2025 3:18 AM EDT) Phosphorus, Plasma 2.7 2.5 - 4.5 mg/dL 02/25/2025 4:23 AM EDT [facility] Blood Venous blood specimen / Unknown Venipuncture / Unknown 02/25/2025 3:18 AM EDT 02/25/2025 3:53 AM EDT Franco Guillory MD LAB BLOOD ORDERABLES Final Res ult [facility] [address] [place] [address] * Magnesium (02/25/2025 3:18 AM EDT) Magnesium, Plasma 2.2 1.9 - 2.4 mg/dL 02/25/2025 4:23 AM EDT [facility] Blood Venous blood specimen / Unknown Venipuncture / Unknown 02/25/2025 3:18 AM EDT 02/25/2025 3:53 AM EDT us Franco Guillory MD LAB BLOOD ORDERABLES Final Res ult Performing Organization Address [facility]/ZIP Co de Phone Number [facility] [address] [place] [address] * (ABNORMAL) CMP (02/25/2025 3:18 AM EDT) Glucose, Plasma 132(H) 74 - 99 mg/dL 02/25/2025 4:23 AM EDT [facility] BUN, Plasma 13 7 - 21 mg/dL 02/25/2025 4:23 AM EDT [facility] Creatinine, Plasma 0.86 0.70 - 1.20 mg/dL 02/25/2025 4:23 AM EDT [facility] BUN/Creatinine Ratio 15 02/25/2025 4:23 AM EDT [facility] Sodium, Plasma 137 136 - 145 mmol/L 02/25/2025 4:23 AM EDT [facility] Potassium, Plasma 3.7 3.6 - 4.9 mmol/L 02/25/2025 4:23 AM EDT [facility] Chloride, Plasma 101 97 - 107 mmol/L 02/25/2025 4:23 AM EDT [facility] CO2, Plasma 24 22 - 29 mmol/L 02/25/2025 4:23 AM EDT [facility] Anion Gap 12 6 - 16 mmol/L 02/25/2025 4:23 AM EDT [facility] Total Calcium, Plasma 9.2 8.9 - 10.2 mg/dL 02/25/2025 4:23 AM EDT [facility] Total Protein 7.4 6.3 - 7.9 g/dL 02/25/2025 4:23 AM EDT [facility] Albumin, Plasma 3.5 3.5 - 5.2 g/dL 02/25/2025 4:23 AM EDT [facility] AST, Plasma 20 10 - 50 U/L 02/25/2025 4:23 AM EDT [facility] Comment:Hemolyzed, result ma y be falsely increased. ALT, Plasma 16 10 - 50 U/L 02/25/2025 4:23 AM EDT [facility] Alkaline Phosphatase, Plasma 100 40 - 115 U/L 02/25/2025 4:23 AM EDT [facility] Total Bilirubin, Plasma 0.7 0.2 - 1.1 mg/dL 02/25/2025 4:23 AM EDT [facility] eGFRcr 115.1 mL/min/1.7 3m*2 02/25/2025 4:23 AM EDT [facility] Comment:Reported eGFRcr in m L/min/1.73m2 is based the CKD-EPI 2020 equation that does not use a race coefficient. Blood Venous blood specimen / Unknown Venipuncture / Unknown 02/25/2025 3:18 AM EDT 02/25/2025 3:53 AM EDT us Franco Guillory MD LAB BLOOD ORDERABLES Final Res ult [facility] [address] [place] [address] * (ABNORMAL) CBC w/diff (02/25/2025 3:18 AM EDT) WBC Count 9.74 3.70 - 10.30 10*3/uL LAB HEMATOLOGY METHOD 02/25/2025 3:42 AM EDT [facility] RBC Count 5.34 4.60 - 6.10 10*6/uL LAB HEMATOLOGY METHOD 02/25/2025 3:42 AM EDT [facility] HGB 15.5 13.7 - 17.5 g/dL LAB HEMATOLOGY METHOD 02/25/2025 3:42 AM EDT [facility] HCT 45.4 40.0 - 51.0 % LAB HEMATOLOGY METHOD 02/25/2025 3:42 AM EDT [facility] Platelet Count 167 155 - 369 10*3/uL LAB HEMATOLOGY METHOD 02/25/2025 3:42 AM EDT [facility] MCV 85 79 - 98 fL LAB HEMATOLOGY METHOD 02/25/2025 3:42 AM EDT [facility] MCH 29.0 26.0 - 32.0 pg LAB HEMATOLOGY METHOD 02/25/2025 3:42 AM EDT [facility] MCHC 34.1 30.7 - 35.5 g/dL LAB HEMATOLOGY METHOD 02/25/2025 3:42 AM EDT [facility] RDW 13.2 11.5 - 14.5 % LAB HEMATOLOGY METHOD 02/25/2025 3:42 AM EDT [facility] MPV 10.0 8.8 - 12.5 fL LAB HEMATOLOGY METHOD 02/25/2025 3:42 AM EDT [facility] nRBC 0.0 <=0.0 per 100 WBCs LAB HEMATOLOGY METHOD 02/25/2025 3:42 AM EDT [facility] Differential Type Automated LAB HEMATOLOGY METHOD 02/25/2025 3:42 AM EDT [facility] Neutrophils % 80 % LAB HEMATOLOGY METHOD 02/25/2025 3:42 AM EDT [facility] Lymphocytes % 10 % LAB HEMATOLOGY METHOD 02/25/2025 3:42 AM EDT [facility] Monocytes % 8 % LAB HEMATOLOGY METHOD 02/25/2025 3:42 AM EDT [facility] Eosinophils % 1 % LAB HEMATOLOGY METHOD 02/25/2025 3:42 AM EDT [facility] Basophils % 0 % LAB HEMATOLOGY METHOD 02/25/2025 3:42 AM EDT [facility] Immature Granulocytes % 1 % LAB HEMATOLOGY METHOD 02/25/2025 3:42 AM EDT [facility] Neutrophils Absolute 7.79(H) 1.60 - 6.10 10*3/uL LAB HEMATOLOGY METHOD 02/25/2025 3:42 AM EDT [facility] Lymphocytes Absolute 1.00(L) 1.20 - 3.90 10*3/uL LAB HEMATOLOGY METHOD 02/25/2025 3:42 AM EDT [facility] Monocytes Absolute 0.76 0.30 - 0.90 10*3/uL LAB HEMATOLOGY METHOD 02/25/2025 3:42 AM EDT [facility] Eosinophils Absolute 0.11 0.00 - 0.50 10*3/uL LAB HEMATOLOGY METHOD 02/25/2025 3:42 AM EDT [facility] Basophils Absolute 0.02 0.00 - 0.10 10*3/uL LAB HEMATOLOGY METHOD 02/25/2025 3:42 AM EDT [facility] Immature Granulocytes Absolute 0.06 0.00 - 0.06 10*3/uL LAB HEMATOLOGY METHOD 02/25/2025 3:42 AM EDT [facility] Blood Venous blood specimen / Unknown Venipuncture / Unknown 02/25/2025 3:18 AM EDT 02/25/2025 3:40 AM EDT Narrative [facility] - 02/25/2025 3:42 AM EDT Therapeutic decision making should be based on absolute values, rather than percentages. us Franco Guillory MD LAB BLOOD ORDERABLES Final Res ult [facility] [address] [place] [address] documented in this encounter Visit Diagnoses Diagnosis Sternal wound dehiscence, initial encounter- Primary Chest wall abscess Bacteremia due to Staphylococcus aureus Chest wall abscess Chest wall abscess documented in this encounter Admitting Diagnoses Diagnosis Sternal wound dehiscence, initial encounter Chest wall abscess documented in this encounter Administered Medications Inactive Administered Medications - up to 3 most recent administrations Medication Order MAR Action Action Date Dose Rate Site acetaminophen (Tylenol) tablet 650 mg 650 mg, [...] EDT 5,000 Units L eft Lower Abdomen ibuprofen tablet 600 mg 600 mg, Oral, Every 6 hours PRN, Starting on Sybil 03/01/25 at 0800, Until Wed03/06/25 at 1535, Routine, Recovery(Phase II-Outpatient)/On Unit(Inpatient), mild pain, patient can choose between acetaminophen and ibuprofen for mild pain Given 03/05/2025 10:37 PM EDT 600 mg lidocaine (Lidoderm) 5 % patch 1 patch [...] 1 Application oxyCODONE (Roxicodone) immediate release tablet 5 mg 5 mg, Oral, Every 4 hours PRN, Starting on Wed03/04/25 at 0654, Until Wed03/06/25 at 1535, Routine, severe pain, For pain unrelieved by other interventions Given 03/06/2025 10:06 AM EDT 5 mg Given 03/06/2025 6:09 AM EDT 5 mg Given 03/05/2025 10:37 PM EDT 5 mg senna (Senokot) tablet 17.2 mg 17.2 mg, [...] on 02/25/25 at 0425, Until Discontinued, Routine Given 03/06/2025 [...] any blood seen in tubing. vancomycin (Vancocin) 1,000 mg in sodium chloride 0.9 % 2,000 mL OR irrigation Continuous PRN, Starting on 02/26/25 at 0947, Until 02/26/25 at 1044, Routine New Bag 02/26/2025 9:47 AM EDT Chest documented in this encounter Active and Recently Administered Medications Times are shown in EDT. Scheduled Medication Order 03/04/2025 03/05/2025 03/06/2025 Buprenorphine HCl-Naloxone HCl (Suboxone) 8-2 MG per SL film 8 mg 8 mg, Sublingual, 2 times daily, First dose (after last modification) on Wed02/27/25 at 1015, Until Discontinued, Routine 0926 (Given - Provider: Mayelin Dorsey RN)2029 (Given - Provider: Marsha Miranda RN) 0836 (Given - Provider: Gallo Bhatt RN)211 (Given [...] Provider: Mayelin Dorsey RN - Reason: Patient/family refused)214 (Not Given - Provider: Marsha Miranda RN [...] RN) 0835 (Given - Provider: Gallo Bhatt RN)2117 (Given - Provider: Gulshan Toney RN) 0824 [...] 0425, Until Discontinued, Routine 0334 (Return to [facility] - Provider: Yared Cartwright RN)1814 (Given [...] Dorsey RN) 0618 (Given - Provider: Marsha Miranda [...] between acetaminophen and ibuprofen for mild pain 2236 (Given - Provider: Gulshan Toney RN) oxyCODONE [...] Marsha Miranda RN)0839 (Given - Provider: Gallo Bhatt, RN)1633 (Given - Provider: aGllo Bhatt, RN)2237 (Given - Provider: Gulshan Toney RN) 0609 (Given - Provider: Gulshan Toney RN)1006 (Given - Provider: Gallo Bhatt, SEBASTIAN) simethicone (Mylicon) chewable tablet 80 mg 80 [...] And Saline lock IV (CANCELED) Once, On Wed02/25/25 at 0420, For 1 occurrence And sodium [...] documented as of this encounter Care Teams [place] Relationship Specialty Start Date End Date Pcp, No [address] [place] [address] PCP - General Family Medicine 02/25/25 documented as of this encounter
--- OUTSIDE RECORDS SUMMARY | 2025-03-08 14:00 | XMS_ITS | Encounter Summary ---
Author Organization Healthcare Address [address] [place] [address] Care Team Providers Care Farm Advisor Name Role Phone Pcp, No Primary Care Provider Unavailabl e Francisco Javier Eller MD Unavailable [phone] Encounter Details Date Type Department Care Team (Late st Contact Info) Description 03/08/2025 2:00 PM EDT Office Visit [facility] Cardi[facility] [address], [address] [place] [address] Keny Tristan MD [address] [place] [address] Sternal wound dehiscence, initial encounter [...] any time in the past 12 m [facility], were you homeless or [...] 2:00 PM EDT Wound Vac Chnage (CPT 42947) Performed by: AGNIESZKA Resendiz Consent: Consent obtained: [...] Description 04/10/2025 8:30 AM EDT Office Visit [facility] [address] [place] [address] Keny Chin MD [address] [address] documented as of this encounter Visit Diagnoses Diagnosis Sternal wound dehiscence, initial encounter- Primary documented in this encounter Additional Health Concerns Assessment Noted Time A Body Mass Index follow-up plan has been documented for the patient 03/08/2025 1:43 PM EDT documented as of this encounter Care Teams Farm Advisor Relationship Specialty Start Date End Date Pcp, Heaven [address] [place] [address] PCP - General Family Medicine 02/25/25 Francisco Javier Eller [place] [facility] [address] Search Marketing Coordinator 03/02/25 documented as of this encounter
--- OUTSIDE RECORDS SUMMARY | 2025-03-12 09:40 | XMS_ITS | Encounter Summary ---
Author Organization Healthcare Address [address] [place] [address] Care Team Providers Care Wedding Photographer Name Role Phone Pcp, No Primary Care Provider Unavailabl e Francisco Javier Eller MD Unavailable [phone] Encounter Details Date Type Department Care Team (Late st Contact Info) Description 03/12/2025 9:40 AM EDT Office Visit [place] [facility] [address], [address] [place] [address] Sherlyn Cisse MD [address] [place] [address] Sternal wound dehiscence, initial encounter [...] time in the past 12 m [facility], were you homeless or living in a usp (including now)? No 02/27/2025 Utilities Answer Date Recorded In the past 12 months has th e electric, gas, oil, or water company threatened to shut off services in your home? No 02/27/2025 PHQ-2A Answer Date Recorded Depression Risk 0 03/12/2025 Sex and Gender Information Value Date Recorded Sex Assigned at Not on file Legal Sex Male 12:02 AM EDT Gender Identity Not on file Sexual Orientation Not on file documented as of this encounter Last Filed Vital Signs Vital Sign Reading Time Taken Comments Blood Pressure 133/87 03/12/2025 10:01 AM EDT Pulse 71 03/12/2025 10:01 AM EDT Temperature - - Respiratory Rate - - Oxygen Saturation 98% 03/12/2025 10:01 AM EDT Inhaled Oxygen Concentration - - Weight 119 kg (261 lb 5.7 oz) 03/12/2025 10:01 A M EDT Height 188 cm (6' 2 ) 03/12/2025 10:01 AM EDT Body Mass Index 33.56 03/12/2025 10:01 AM EDT documented in this encounter Miscellaneous Notes * Progress Notes - Malcolm Danielle PA - 03/12/2025 9:40 AM EDT Informed consent was obtained verbally to perform a negative pressure wound VAC dressing change, pre-existing, in a previously sternotomy. Wound VAC sponge was removed. There was a nice granulation base. No discharge was noted. Measurements taken at the time of the wound VAC change demonstrated a size of 19 cm by 7 cm x 3-1/2 cm. A single black sponge 2.5 cm in width and a length 19 cm was placed in the sternotomy wound. A clear adhesive drape was placed over top of the entire sternotomy covering the black sponge. Before negative pressure was applied, I approximated both sides of the sternum and initiated the negative pressure. This allowed for better closure and approximation of the wound with less material. He tolerated reasonably well. No complications were observed He is scheduled to undergo wound VAC change again on WednesdayMarch 14 in [facility]. Hisnext appointment to see us in the clinic is on March 26. I have asked he bring a wound VAC sponge and dressing kit with him at the time of that appointment so that we can take it down look at the progress of wound healing and reapply. 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 documented in this encounter Plan of Treatment Upcoming Encounters Date Type Department Care Team (Late st Contact Info) Description 04/10/2025 8:30 AM EDT Office Visit [facility] [address] [place] [address] Keny Chin MD [address] [facility] [address] [place] [address] documented as of this encounter Visit Diagnoses Diagnosis Sternal wound dehiscence, initial encounter- Primary documented in this encounter Additional Health Concerns Assessment Noted Time A fall risk assessment has been complete d for the patient 03/12/2025 10:07 AM EDT A Body Mass Index follow-up plan has been documented for the patient 03/12/2025 10:37 AM EDT documented as of this encounter Care Teams Wedding Photographer Relationship Specialty Start Date End Date Pcp, Heaven [address] [place] [address] PCP - General Family Medicine 02/25/25 Francisco Javier Eller [place] [address] Supervisor Ovens 03/02/25 documented as of this encounter
--- OUTSIDE RECORDS SUMMARY | 2025-03-26 09:43 | XMS_ITS | Encounter Summary ---
Author Organization Healthcare Address [address] [place] [address] Care Team Providers Care Survey Methodologist Name Role Phone Pcp, No Primary Care Provider Unavailabl e Francisco Javier Eller MD Unavailable [phone] Encounter Details Date Type Department Care Team (Latest Contact Info) Description 03/26/2025 9:43 AM EDT - 03/26/2025 11:59 PM EDT Hospital Encounter [facility] [address], [address] [place] [phone] Presence of prosthetic heart valve Discharge Disposition: Home or Self Care Social [...] by your partner or ex-partner? No 02/27/2025 PHQ-2 Answer Date Recorded Patient Health Questionnaire-2 Score 0 03/27/2025 Hunger Vital Sign Answer Date Recorded Within [...] things needed for daily living? No 02/27/2025 PHQ-9 Answer Date Recorded Patient Health Questionnaire-9 Score 0 03/27/2025 Housing Stability Vital Sign Answer Fausto e Recorded In the last 12 months, was t here a time when you were not able to pay the mortgage or rent on time? No 02/27/2025 Number of Times Moved in the Last Year Not on fi le 02/27/2025 At any time in the past 12 m [facility], were you homeless or living in a senior living (including now)? No 02/27/2025 AUDIT-C Answer Date Recorded Frequency of Alcohol Consumption Not on file 03/27/2025 Q2: How many drinks containi ng alcohol do you have on a typical day when you are drinking? Patient does not drink Frequency of Binge Drinking Not on file 03/05 Utilities Answer Date Recorded In the past [...] on file documented as of this encounter Medications at [...] 1 each 5 04/10/20 25 HYDROcodone-acetami nophen ([place]) 5-325 MG tablet Take 1 tablet by [...] as directed by . 20 patch 5 methocarbamol (Robaxin) 750 MG tablet Take 1 tablet by mouth 4 times a day. 40 tablet 5 naloxone (Narcan) 4 mg/0.1 mL nasal spray 1. Give 1 spray in nostril for no/slow breathing or cannot wake after opioid use 2. Call 911 3. Repeat in other nostril if symptoms continue 1 each 5 documented as of this encounter Plan of Treatment Upcoming Encounters Date Type Department Care Team (Late st Contact Info) Description 04/10/2025 8:30 AM EDT Office Visit [facility] [address] [place] [phone] Keny Chin MD [address] [place] [phone] documented as of this encounter Procedures [...] documented as of this encounter Care Teams Survey Methodologist Relationship Specialty Start Date End Date Pcp, [place] [address] PCP - General Family Medicine 02/25/25 Francisco [facility] Ell[facility] [place] [address] Marble Machine Operator 03/02/25 documented as of this encounter
--- OUTSIDE RECORDS SUMMARY | 2025-03-26 11:40 | XMS_ITS | Encounter Summary ---
Author Organization Healthcare Address [address] [place] [address] Care Team Providers Care Stereo Map Plotter Operator Name Role Phone Pcp, No Primary Care Provider Unavailvidal e Francisco Javier Eller MD Unavailable Reason for Referral * Other Medical (Routine) - Pending Review Specialty Diagnoses / Procedures Referred By Contac t Referred To Contact Diagnoses Presence of prosthetic heart valve Procedures Wound vac dressing change with minor debridement Meera Leos APRN [address] [address] Phone: tel: fax: Referral ID Status Reason Start Date Expiration Date V isits Requested Visits Authorized [id number] Pending Review 03/26/2025 09/25/2026 1 1 Encounter Details Date Type Department Care Team (Late st Contact Info) Description 03/26/2025 11:40 AM EDT [facility] [address], [facility] [address] [place] [address] Sherlyn Cisse MD [id number] [place] [address] Presence of prosthetic heart valve [...] health care facility (including now)? No 02/27/2025 AUDIT-C Answer Date Recorded Frequency of Alcohol Consumption Not on file 03/27/2025 Q2: How many drinks containi ng alcohol do you have on a typical day when you are drinking? Patient does not drink Frequency of Binge Drinking Not on file 03/05 Utilities Answer Date Recorded In the past 12 months has th e electric, gas, oil, or water [employer] threatened to shut off services in your [...] suboxone, infectious endocarditisrequiring tricuspid valve repair in [place] in 2019 who developed issues with chest [...] been getting his vac dressing changes at [facility] (except when he gets them done [...] 03/05/25 04/10/25 Yes Alejandro Sandoval PA HYDROcodone-acetaminophen ([place]) 5-325 MG tablet Take 1 tablet by [...] regurgitation. Tricuspid Valve: The leaflets appear thickened. [place] TV endocarditis post valve repair with a Deborah salter at [facility] (2019). There appears to be restricted motion/malcoaptation [...] is no recent study available for direct [id number]-kl-[id number] comparison. No valid procedures specified. Review of [...] suboxone, infectious endocarditisrequiring tricuspid valve repair in [place] in 2019 who developed issues with chest [...] Description 04/10/2025 8:30 AM EDT Office Visit [address] [address] Keny Chin MD [address] [place] [address] Scheduled Orders Name Type Priority Associated [...] Leos APRN Authorized by: Leos, Meera M, LINK TRAINER OPERATOR Consent obtained: Verbal Consent given by: Patient [...] Tolerated well, no immediate complications Meera Leos LINK TRAINER OPERATOR IN CLINIC/BEDSIDE ORDERABLES Final Result * XR [...] ult [facility] [address] [place] [address] * (ABNORMAL) CBC W/O Differential (03/26/2025 9:39 [...] Res ult [facility] [address] [place] [address] documented in this encounter Visit Diagnoses Diagnosis [...] documented as of this encounter Care Teams Stereo Map Plotter Operator Relationship Specialty Start Date End Date Pcp, No [address] [place] [address] PCP - General Family Medicine 02/25/25 Francisco J[facility] Ell[facility] [place] [address] Pumper Gauger Apprentice 03/02/25 documented as of this encounter
--- OUTSIDE RECORDS SUMMARY | 2025-03-27 09:00 | XMS_ITS | Encounter Summary ---
Author Organization Healthcare Address [address] [place] [address] Care Team Providers Care Towel Inspector Name Role Phone Pcp, No Primary Care Provider Unavailabl e Francisco Javier Eller MD Unavailable [phone] Reason for Referral * Consultation (Routine) - Authorized Specialty Diagnoses / Procedures Referred By Contac t Referred To Contact Diagnoses Osteomyelitis of sternum (CMS/HCC) Keny Chin MD [address] [place] [phone] Phone: tel: fax: Referral ID Status Reason Start Date Expiration Date V isits Requested Visits Authorized [id number] Authorized 03/27/2025 09/26/2026 1 1 Encounter Details Date Type Department Care Team (Late st Contact Info) Description 03/27/2025 9:00 AM EDT Office Visit [address] [phone] Keny Chin MD [address] [place] [phone] Osteomyelitis of sternum (CMS/HCC) (Primary Dx) Social History Tobacco Use Types [...] any time in the past 12 m [facility], were you homeless or living in a half-way (including now)? No 02/27/2025 AUDIT-C Answer Date Recorded Frequency of Alcohol Consumption Not on file 03/27/2025 Q2: How many drinks containi ng alcohol do you have on a typical day when you are drinking? Patient does not drink Frequency of Binge Drinking Not on file 03/05 Utilities Answer Date Recorded In the past 12 months has th e [employer], oil, or [employer] threatened to shut off services in your [...] Sign Reading Time Taken Comments Blood Pressure 127/86 03/27/2025 8:46 AM EDT Pulse 86 03/27/2025 8:46 AM EDT Temperature 36.8 C (98.3 F) 03/27/2025 8:46 AM EDT Respiratory Rate - - Oxygen Saturation 98% 03/27/2025 8:46 AM EDT Inhaled Oxygen Concentration - - Weight 90 kg (198 lb 6.6 oz) 03/27/2025 8:46 AM EDT Height - - Body Mass Index 25.47 03/26/2025 10:11 AM EDT documented in this encounter Functional Status * Over the [...] Health Questionnaire-9 Score 0 03/27/2025 8:45 AM EDT Tarun Camara * If you checked off any problems on this questionnaire so far, Question Answer Date of Assessment Author How difficult have these problems made it for you to do your work, take care of things at home, or get along with other people? 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 Please refer to that note for full details. Pt seen in ID Clinic 03/27/2025. Pt has completed Induction therapy with Cefazolin IV x 4 of 6 weeks. Sternum slowly healing. He remains in a VAC. Per pics he had, there is good granulation tissue.Pt tolerating abx. Current Medications[1] Past Medical History[2] Surgical History[3] Social History Socioeconomic History Marital status: Single Spouse name: Not on file Number of children: Not on file Years of education: Not on file Highest education level: Not on file Occupational History Not on file Tobacco Use Smoking status: Every Day Current packs/day: 0.50 Average packs/day: 0.5 packs/day for 0.5 years (0.3 ttl pk-yrs) Types: Cigarettes Smokeless tobacco: Never Vaping Use Vaping status: Never Used Substance and Sexual Activity Alcohol use: Never Drug use: Never Sexual activity: Not on file Other Topics Concern Not on file Social History Narrative Not on file Social Drivers of Health Financial Resource Strain: Not on file Food Insecurity: No Food Insecurity (02/27/2025) Hunger Vital Sign Worried About Running Out of Food in the Last Year: Never true Ran Out of Food in the Last Year: Never true Transportation Needs: No Transportation Needs (02/27/2025) PRAPARE - Transportation Lack of Transportation (Medical): No Lack of Transportation (Non-Medical): No Physical Activity: Not on file Stress: Not on file Social Connections: Not on file Intimate Partner Violence: Not At Risk (02/27/2025) Humiliation, Afraid, Rape, and Kick questionnaire Fear of Current or Ex-Partner: No Emotionally Abused: No Physically Abused: No Sexually Abused: No Housing Stability: Unknown (02/27/2025) Housing Stability Vital Sign Unable to Pay for Housing in the Last Year: No Number of Times Moved in the Last Year: Not on file Homeless in the Last Year: No Family History[4] Immunization History Administered Date(s) Administered [employer] COVID-19 Vaccine (Blue Cap) 18+ 01/07/2021 TD (adult), 2 Lf tetanus toxoid, preservative free, adsorbed 10/29/2011 Tdap 02/03/2013, 04/16/2014 Allergies[5] REVIEW OF SYSTEMS: Review of Systems 14 systems reviewed and negative Physical Exam Vitals and nursing note reviewed. Constitutional: General: He is not in acute distress. Appearance: Normal appearance. He is well-developed. He is not ill-appearing. HENT: Right Ear: External ear normal. Left Ear: External ear normal. Eyes: General: Lids are normal. No scleral icterus. Conjunctiva/sclera: Conjunctivae normal. Pupils: Pupils are equal, round, and reactive to light. Cardiovascular: Rate and Rhythm: Normal rate and regular rhythm. Heart sounds: Normal heart sounds. No murmur heard. Pulmonary: Effort: Pulmonary effort is normal. No respiratory distress. Breath sounds: Normal breath sounds. No wheezing or rales. Abdominal: General: Abdomen is flat. Palpations: Abdomen is soft. Musculoskeletal: General: No swelling or tenderness. Normal range of motion. Cervical back: Normal range of motion and neck supple. Right lower leg: No edema. Left lower leg: No edema. Comments: Sternum in VAC. Pics reviewed - Sternal wound clean, granulating Skin: General: Skin is warm and dry. Neurological: General: No focal deficit present. Mental Status: He is alert and oriented to person, place, and time. Psychiatric: Mood and Affect: Mood normal. Behavior: Behavior normal. Thought Content: Thought content normal. Judgment: Judgment normal. LABS: LABS REVIEWED CRP, Plasma Latest Ref Rng <=8.0 mg/L 02/25/2025 282.5 (H) External C-Reactive Protein Latest Ref Rng 0 - 4 mg/L 03/12/2025 11.7 ! (E) 03/19/2025 13.9 ! (E) MICRO: MICRO REVIEWED. FOR ALL STUDIES, SEE [...] BLD - NGTD 03/01/2025 BLD - NGTD 03/03/2025 BLD - NGTD 03/03/2025 BLD - NGTD STUDIES: STUDIES REVIEWED. FOR [...] regurgitation. Tricuspid Valve: The leaflets appear thickened. 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 There appears to be restricted [...] is no recent study available for direct ioas-ye-pzxa comparison. 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 Ptalso with h/o TV IE in 2019 for which he had TV leaflet repair and De Lucas procedure at [facility]). Pt was incarcerated at the time, and post-discharge developed chronic drainage from cephalad portion of sternal wound. Pt reportedly had I&Ds at [facility]. Wound subsequentlyhas open and closed several times since 2021, including in December 2024. On/around 02/19/2025, wound again ruptured with large amount of purulent drainage, which pt described as largest amount of renata inage in several years. Pt seen at [facility] 02/24/2025. 02/24/2025 CT showed 2.4x2.1x2.6cm abscess at sternomanubrial junction; inflammatory changes over sternum and manubrium extending posteriorly into anterior mediastinum. Pt transferred to and admitted 02/25/2025 - 03/06/2025. 02/25/2025 sternal wound swab cx growing MSSA. S/p 02/26/2025 I&D of sternum, removal of sternal plates x3 and wires x2; 5cm pocket of purulence noted near sternomanubrial junction; cx grew MSSA. 02/25/2025 BLD cxpositive for MSSA x 3/4 bottles (and CONS from 1 bottle.) 02/27/2025 BLD - NGTD; 03/01/2025 BLD cx sofar NGTD. Pt seen by ID that admit --> recommended Induction therapy with Cefazolin IV CI x 6weeks (until 04/10/2025). Pt [facility] 03/27/2025. Pt has completed Induction therapy with Cefazolin IV x 4 of 6 weeks. Sternum slowly healing. He remains in a VAC. Per pics he had, there is good granulation tissue.Pt tolerating abx. CARDIAC: H/o 2019 TV IE, s/p leaflet repair and De Lucas procedure at [facility]) SUBSTANCE ABUSE: Illicit: H/o IVDA, polysubstance abuse. As of 02/27/2025, claims sobriety x years. Tobacco: Active smoker ETOH: Denies PSYCHOSOCIAL: H/o incarceration -- freed 04/03/2024. RENAL/URO: H/o post-infectious GN HEME: Anemia of chronic disease INFECTIOUS: HCV. 02/25/2025 PCR negative. H/o TV IE GI: H/o GIB. NEURO: Sz d/o H/o Appy H/o Dental DRUG ALLERGIES: NKDA RECOMMENDATIONS: Continue Cefazolin 6g/day IV continuous infusion therapy as Induction therapy x 6-8+ weeks (until 04/10/2025 at least)(may need a longer course of therapy based on clinical response.) While on High Dose/Induction abx therapy, will need regular blood work to monitor for adverse drug events, response to therapy, drug levels: EVERY WEDNESDAY: CBCP/D, BUN, Creatinine (not BMP), CRP (regular quantitative CRP, not the high-sensitivity/cardiac CRP) Plan to follow Induction therapy with course of Suppressive/Consolidation PO abx x 3-6 months. Likely Cefadroxil. WEEK 6 FOLLOWUP: 04/10/2025, 0930AM Keny Chin MD [1] Current Outpatient Medications: acetaminophen (Tylenol) 500 MG tablet, Take 2 tablets by mouth every 6 hours as needed for pain., Disp: , Rfl: Buprenorphine HCl-Naloxone HCl (Suboxone) 8-2 MG SL film, Place 2 Film under the tongue daily., Disp: , Rfl: ceFAZolin (Ancef) injection, Infuse 6 gm continuously every 24 hours. Mix per institutional policy., Disp: 1 each, Rfl: 0 HYDROcodone-acetaminophen (Etters) 5-325 MG tablet, Take 1 tablet by mouth every 6 hours as needed for moderate pain or severe pain., Disp: 80 tablet, Rfl: 0 ibuprofen 200 MG tablet, Take 2 tablets by mouth every 6 hours as needed for mild pain., Disp: , Rfl: lidocaine (Lidoderm) 5 % patch, Apply 1 patch topically 1 (one) time each day at the same time over12 hours. Remove & discard patch within 12 hours or as directed by MD., Disp: 20 patch, Rfl: 0 methocarbamol (Robaxin) 750 MG tablet, Take 1 tablet by mouth 4 times a day., Disp: 40 tablet, Rfl:0 naloxone (Narcan) 4 mg/0.1 mL nasal spray, 1. Give 1 spray in nostril for no/slow breathing or cannot wake after opioid use 2. Call 911 3. Repeat in other nostril if symptoms continue, Disp: 1 each, Rfl: 0 [2] Past Medical History: Diagnosis Date Endocarditis [3] Past Surgical History: Procedure Laterality Date STERNAL WIRES REMOVAL 02/26/2025 Chest wall debridement, removal sternal plates and wires, wound vac dressing placement (Dr. Sherlyn Cisse) [4] History reviewed. No pertinent family history. [5] No Known Allergies documented in this encounter Plan of Treatment Upcoming Encounters Date Type Department Care Team (Late st Contact Info) Description 04/10/2025 8:30 AM EDT Office Visit [facility] [address] [place] [phone] Keny Chin MD [address] [facility] [address] [place] [phone] Scheduled Referrals Name Type Priority Associated Diagnoses Orde r Schedule Follow Up ID Outpatient Referral Routine Osteomyelitis of sternum (CMS/HCC) Expected: 04/10/2025, Expires: 04/26/2026 documented as of this encounter Visit Diagnoses Diagnosis Osteomyelitis of sternum (CMS/HCC)- Primary documented in this encounter Additional Health Concerns Assessment Noted Time PHQ-9 Depression Total Score: 0 03/27/20 8:45 AM EDT A fall risk assessment has been complete d for the patient 03/12/2025 10:07 AM EDT A Body Mass Index follow-up plan has been documented for the patient 03/27/2025 9:39 AM EDT documented as of this encounter Care Teams Towel Inspector Relationship Specialty Start Date End Date Pcp, [place] [address] PCP - General Family Medicine 02/25/25 Francisco Javier Eller MD [address] [place] [address] Infrastructure Solutions Architect 03/02/25 documented as of this encounter
--- OUTSIDE RECORDS SUMMARY | 2025-03-29 12:20 | XMS_ITS | Encounter Summary ---
Author Organization Healthcare Address [address] [place] [address] Care Team Providers Care Tafe Teacher Name Role Phone Pcp, No Primary Care Provider Unavailvidal e Francisco Javier Eller MD Unavailable [phone] Reason for Referral * Imaging (Routine) - Pending Review Specialty Diagnoses / Procedures Referred By Kerry ramirez Referred To Contact Gastroenterology Diagnoses Sternal wound infection Procedures Wound Vac Keny Tristan MD [address] [address] Phone: tel: fax: Referral ID Status Reason Start Date Expiration Date Visits Requested Visits Authorized [id number] Pending Review Specialty Services Required 03/29/2025 09/28/2026 1 1 Encounter Details Date Type Department Care Team (Late st Contact Info) Description 03/29/2025 12:20 PM EDT [facility] [address], [address] [address] Keny Tristan MD [address] [address] Sternal wound infection (Primary Dx) Social History Tobacco Use Types [...] any time in the past 12 m [facility], were you homeless or living in [...] the past 12 months has th e [employer], gas, oil, or water company threatened to [...] Sign Reading Time Taken Comments Blood Pressure 122/76 03/29/2025 1:48 PM EDT Pulse 84 03/29/2025 1:48 PM EDT Temperature - - Respiratory Rate - - Oxygen Saturation 96% 03/29/2025 1:48 PM EDT Inhaled Oxygen Concentration - - Weight 118 kg (259 lb 7.7 oz) 03/29/2025 1:48 PM EDT Height - - Body Mass Index 33.32 03/26/2025 10:11 AM EDT documented in this encounter Plan of Treatment Upcoming Encounters Date Type Department Care Team (Late st Contact Info) Description 04/10/2025 8:30 AM EDT Office Visit [facility] [address] [place] [address] Keny Chin MD [facility] [address] [address] Pending Results Name Type Priority Associated Diagnoses Date /Time Wound Vac Endoscopy Routine Sternal wound infection 03/29/2025 12:20 PM EDT documented as of this encounter Procedures Procedure Name Priority Date/Time Associated Diagnosis Comments THORACENTESIS Routine 03/29/2025 12:20 PM EDT Sternal wound infection documented in this encounter Visit Diagnoses Diagnosis Sternal wound infection- Primary documented in this encounter Additional Health Concerns Assessment Noted Time PHQ-9 Depression Total Score: 0 03/27/20 8:45 AM EDT A fall risk assessment has been complete d for the patient 03/12/2025 10:07 AM EDT A Body Mass Index follow-up plan has been documented for the patient 03/27/2025 9:39 AM EDT documented as of this encounter Care Teams Tafe Teacher Relationship Specialty Start Date End Date Pcp, Heaven [address] [place] [address] PCP - General Family Medicine 02/25/25 Francisco Javier Eller MD [address] [place] [address] Hose Handler 03/02/25 documented as of this encounter
[2025-04-02 08:44] VITALS: BMI 33.3
--- OUTSIDE RECORDS SUMMARY | 2025-04-02 08:47 | XMS_ITS | Encounter Summary ---
Author Organization Healthcare Address [address] [place] [address] Care Team Providers Care Associate Director Of Development Name Role Phone Pcp, No Primary Care Provider Unavailvidal e Francisco Javier Eller MD Unavailable [phone] Encounter Details Date Type Department Care Team (Late st Contact Info) Description 02/25/2025 Patient Outreach [facility] Medicine Specialties [address], [address] [place] [address] Gavin Vargas Social History Tobacco [...] any time in the past 12 m [facility], were you homeless or living in [...] No 03/05/2025 8:00 AM EDT Gallo Bhatt , RN 6. Suicidal Behavior (Lifetime) No 8:00 AM EDT Gallo Bhatt RN documented as of this encounter Plan of Treatment Upcoming Encounters Date Type Department Care Team (Late st Contact Info) Description 04/10/2025 8:30 AM EDT Office Visit [facility] [address] [place] [address] Keny Chin MD [address] [address] documented as of this encounter Visit Diagnoses Not on filedocumented in this encounter Additional Health Concerns Assessment Noted Time A Body Mass Index follow-up plan has been documented for the patient 03/06/2025 9:43 AM EDT documented as of this encounter Care Teams Associate Director Of Development Relationship Specialty Start Date End Date Pcp, Heaven [address] [place] [address] PCP - General Family Medicine 02/25/25 Francisco J[facility] MD [facility] [place] [address] Cellular Biologist 03/02/25 documented as of this encounter
--- OUTSIDE RECORDS SUMMARY | 2025-04-02 08:47 | XMS_ITS | Encounter Summary ---
Author Organization Healthcare Address [address] [place] [id number] Care Team Providers Care Preschool Substitute Teacher Name Role Phone Pcp, No Primary Care Provider Unavailabl e Francisco Javier Eller MD Unavailable [phone] Encounter Details Date Type Department Care Team (Late st Contact Info) Description 03/07/2025 Clinical Support [facility] [address] [place] [address] Saul Bey, PharmD [address] [place] [phone] Social History Tobacco Use Types Packs/Day Years [...] time in the past 12 m [facility], were you homeless or living in a custodial (including now)? No 02/27/2025 Utilities Answer Date [...] Description 04/10/2025 8:30 AM EDT Office Visit [place] [address] [place] [address] Keny Chin MD [address] [address] documented as of this encounter Visit Diagnoses Not on filedocumented in this encounter Additional Health Concerns Assessment Noted Time A Body Mass Index follow-up plan has been documented for the patient 03/07/2025 8:32 AM EDT documented as of this encounter Care Teams Preschool Substitute Teacher Relationship Specialty Start Date End Date Pcp, No [address] [place] [address] PCP - General Family Medicine 02/25/25 Francisco Javier Eller MD [facility] [place] [id number] Branch Mechanic 03/02/25 documented as of this encounter
--- OUTSIDE RECORDS SUMMARY | 2025-04-02 08:47 | XMS_ITS | Encounter Summary ---
Author Organization Healthcare Address [address] [place] [address] Care Team Providers Care Automatic Winder Operator Name Role Phone Pcp, No Primary [...] any time in the past 12 m [facility], were you homeless or living in a [place] [facility] facility (including now)? No 02/27/2025 Utilities Answer Date Recorded In the past 12 months has [facility] [employer], gas, oil, or water company threatened to [...] Description 04/10/2025 8:30 AM EDT Office Visit [facility] [address] [place] [address] Keny Chin MD [address] [address] documented as of this encounter Visit Diagnoses Not on filedocumented in this encounter Additional Health Concerns Assessment Noted Time A Body Mass Index follow-up plan has been documented for the patient 03/06/2025 9:43 AM EDT documented as of this encounter Care Teams Automatic Winder Operator Relationship Specialty Start Date End Date Pcp, No [address] [place] [address] PCP - General Family Medicine 02/25/25 documented as of this encounter
--- OUTSIDE RECORDS SUMMARY | 2025-04-02 08:47 | XMS_ITS | Encounter Summary ---
Author Organization Healthcare Address [address] [place] [address] Care Team Providers Care Restaurant Cook Name Role Phone Pcp, No Primary [...] No 025 8:00 AM EDT Ginette Oseguera, RN 2. Non-Specific Active Suici mony Thoughts (Past 1 Month) No 02/25/2025 8:00 AM EDT Ginette Oseguera, RN 6. Suicidal Behavior (Lifetime) No 8:00 AM EDT Ginette Oseguera RN documented as of this encounter Plan of Treatment Upcoming Encounters Date Type Department Care Team (Late st Contact Info) Description 04/10/2025 8:30 AM EDT Office Visit [facility] [address] [place] [address] Keny Chin MD 3101 [facility] 100 [place] [address] documented as of this encounter Visit Diagnoses Not on filedocumented in this encounter Additional Health Concerns Assessment Noted Time A Body Mass Index follow-up plan has been documented for the patient 03/06/2025 9:43 AM EDT documented as of this encounter Care Teams Restaurant Cook Relationship Specialty Start Date End Date Pcp, [place] [address] PCP - General Family Medicine 02/25/25 documented as of this encounter
--- OUTSIDE RECORDS SUMMARY | 2025-04-02 08:47 | XMS_ITS | Encounter Summary ---
Author Organization Healthcare Address [address] [place] [id number] Care Team Providers Care Wholesale Buyer Name Role Phone Pcp, No Primary Care Provider Unavailabl e Francisco Javier Eller MD Unavailable [phone] Encounter Details Date Type Department Care Team (Late st Contact Info) Description 03/12/2025 [facility] [address], [address] [place] [address] Leela Ayala RN [facility] LUNG [id number] [address] [place] [phone] Social History Tobacco Use Types Packs/Day Years [...] the money to buy more. Never true 05/27/20 25 Within the past 12 months, t [...] a senior living (including now)? No 02/27/2025 Utilities Answer Date [...] 2:33 PM EDT Notified pharmacist everardo for [place] with Suboxone Reviewed with Rogerio Carty APRN, ok for both meds. documented in this encounter Plan of Treatment Upcoming Encounters Date Type Department Care Team (Late st Contact Info) Description 04/10/2025 8:30 AM EDT Office Visit [facility] [address] [place] [address] Keny Chin MD 3101 [facility] 100 [place] [address] documented as of this encounter Visit Diagnoses Not on filedocumented in this encounter Additional Health Concerns Assessment Noted Time A fall risk assessment has been complete d for the patient 03/12/2025 10:07 AM EDT A Body Mass Index follow-up plan has been documented for the patient 03/12/2025 10:37 AM EDT documented as of this encounter Care Teams Wholesale Buyer Relationship Specialty Start Date End Date Pcp, Heaven [address] [place] [address] PCP - General Family Medicine 02/25/25 Francisco Javier Eller MD [address] [place] [address] Chiller Operator 03/02/25 documented as of this encounter
--- OUTSIDE RECORDS SUMMARY | 2025-04-02 08:47 | XMS_ITS | Encounter Summary ---
Author Organization Healthcare Address [address] [place] [address] Care Team Providers Care Rehab Nurse Name Role Phone Pcp, No Primary Care Provider Unavailabl e Francisco Javier Eller MD Unavailable [phone] Encounter Details Date Type Department Care Team (Late st Contact Info) Description 03/14/2025 Orders Only Cardiothoracic Surgery [address] [place] [address] Indra Mcintosh M, GROCERY TEAM MEMBER [address] [facility] [address] [place] [address] Social History Tobacco Use Types [...] Description 04/10/2025 8:30 AM EDT Office Visit [facility] [address] [place] [address] Keny Chin MD 3101 [facility] 100 [place] [address] documented as of this encounter Visit Diagnoses Not on filedocumented in this encounter Additional Health Concerns Assessment Noted Time A fall risk assessment has been complete d for the patient 03/12/2025 10:07 AM EDT A Body Mass Index follow-up plan has been documented for the patient 03/12/2025 10:37 AM EDT documented as of this encounter Care Teams Rehab Nurse Relationship Specialty Start Date End Date Pcp, No [address] [place] [address] PCP - General Family Medicine 02/25/25 Francisco Javier Eller MD [facility] [place] [address] Construction Analyst 03/02/25 documented as of this encounter
--- OUTSIDE RECORDS SUMMARY | 2025-04-02 08:47 | XMS_ITS | Encounter Summary ---
Author Organization Healthcare Address [address] [place] [address] Care Team Providers Care Sulfide Head Operator Name Role Phone Pcp, No Primary Care Provider Unavailabl e Francisco Javier Eller MD Unavailable [phone] Encounter Details Date Type Department Care Team (Late st Contact Info) Description 03/07/2025 Telephone [facility] [address] [place] [address] Barbara Martins CV TELE-PROGRESSIVE Social History Tobacco [...] any time in the past 12 m [facility], were you homeless or living [...] Description 04/10/2025 8:30 AM EDT Office Visit [place] [address] [place] [address] Keny Chin MD [address]01 [facility] 100 [place] [address] documented as of this encounter Visit Diagnoses Not on filedocumented in this encounter Additional Health Concerns Assessment Noted Time A Body Mass Index follow-up plan has been documented for the patient 03/07/2025 8:32 AM EDT documented as of this encounter Care Teams Sulfide Head Operator Relationship Specialty Start Date End Date Pcp, No [address] [place] [address] PCP - General Family Medicine 02/25/25 Francisco Javier Eller MD [address] [place] [address] Graduate School Dean 03/02/25 documented as of this encounter
--- OUTSIDE RECORDS SUMMARY | 2025-04-02 08:47 | XMS_ITS | Encounter Summary ---
Author Organization Healthcare Address [address] [place] [address] Care Team Providers Care Community Center Worker Name Role Phone Pcp, No Primary Care Provider Unavailabl e Encounter Details Date Type Department Care Team (Late st Contact Info) Description 02/24/2025 Orders Only External Location [address] [place] [address] Provider, External Social History Tobacco Use Types [...] the past 12 months has th e [employer], gas, oil, or water company threatened to [...] Description 04/10/2025 8:30 AM EDT Office Visit [facility] [address] [place] [address] Keny Chin MD [address] [address] documented as of this encounter Procedures Procedure [...] on filedocumented in this encounter Care Teams Community Center Worker Relationship Specialty Start Date End Date Pcp, [place] [address] PCP - General Family Medicine 02/25/25 documented as of this encounter
--- OUTSIDE RECORDS SUMMARY | 2025-04-02 08:48 | XMS_ITS | Encounter Summary ---
Author Organization Healthcare Address [address] [place] [id number] Care Team Providers Care Carroting Machine Offbearer Name Role Phone Pcp, No Primary Care Provider Unavailabl e Francisco Javier Eller MD Unavailable [phone] Encounter Details Date Type Department Care Team (Late st Contact Info) Description 03/14/2025 Telephone [facility] [address], [address] [place] [address] [facility] LUNG [id number] [address] [place] [phone] Social History Tobacco Use Types Packs/Day Years [...] time in the past 12 m [facility], were you homeless or living in [...] 03/14/2025 2:21 PM EDT Pt requests refill Tanya, reviewed with Chelle Coppola APRN, refill sent . Pt updated documented in this encounter Plan of Treatment Upcoming Encounters Date Type Department Care Team (Late st Contact Info) Description 04/10/2025 8:30 AM EDT Office Visit [facility] [address] [place] [address] Keny Chin MD 3101 [facility] 100 [place] [address] documented as of this encounter Visit Diagnoses Not on filedocumented in this encounter Additional Health Concerns Assessment Noted Time A fall risk assessment has been complete d for the patient 03/12/2025 10:07 AM EDT A Body Mass Index follow-up plan has been documented for the patient 03/12/2025 10:37 AM EDT documented as of this encounter Care Teams Carroting Machine Offbearer Relationship Specialty Start Date End Date Pcp, Heaven [address] [place] [address] PCP - General Family Medicine 02/25/25 Francisco Javier Eller MD [address] [place] [address] Laundry Laborer 03/02/25 documented as of this encounter
--- OUTSIDE RECORDS SUMMARY | 2025-04-02 08:48 | XMS_ITS | Encounter Summary ---
Author Organization Healthcare Address [address] [place] [address] Care Team Providers Care Dividing Machine Operator Name Role Phone Pcp, No Primary Care Provider Unavailvidal e Francisco Javier Eller MD Unavailable [phone] Encounter Details Date Type Department Care Team (Latest Contact Info) Description 03/27/2025 Travel Social History Tobacco Use Types Packs/Day [...] a senior care (including now)? No 02/27/2025 AUDIT-C Answer Date [...] all 03/27/2025 8:45 AM EDT Sa demar Camaar Trouble concentrating on things, such as reading [...] Tarun Camara documented as of this encounter Plan of Treatment Upcoming Encounters Date Type Department Care Team (Late st Contact Info) Description 04/10/2025 8:30 AM EDT Office Visit [facility] [address] [place] [address] Keny Chin MD [address] [address] documented as of this encounter Visit Diagnoses [...] documented as of this encounter Care Teams Dividing Machine Operator Relationship Specialty Start Date End Date Pcp, [place] [address] PCP - General Family Medicine 02/25/25 Francisco Javier Eller MD [address] [place], [place] [id number] Back Wedger 03/02/25 documented as of this encounter
--- OUTSIDE RECORDS SUMMARY | 2025-04-02 08:48 | XMS_ITS ---
Author Organization [facility] Address [address] [id number] Care Team Providers Care Attendant Arcade Name Role Phone Pcp, No Primary Care Provider UnavailFrancisco Javier ePrez MD Unavailable [phone] Hepatitis C Program Status:Closed (Closed) Start date:02/25/2025 Enrollment reason:HCV End date:02/25/2025 Close reason:HCV RNA Negative Continued Care and Services Coordination
--- OUTSIDE RECORDS SUMMARY | 2025-04-02 08:48 | XMS_ITS | Encounter Summary ---
Author Organization Healthcare Address [address] [place] [address] Care Team Providers Care Blending Tank Tender Name Role Phone Pcp, No Primary Care Provider Unavailvidal e Francisco Javier Eller MD Unavailable [phone] Encounter Details Date Type Department Care Team (Latest Contact Info) Description 03/29/2025 Travel Social History Tobacco Use Types Packs/Day [...] in a assisted (including now)? No 02/27/2025 AUDIT-C Answer Date [...] Description 04/10/2025 8:30 AM EDT Office Visit [place] [address] [place] [address] [place] [address] [place] [address] documented as of this encounter Visit [...] documented as of this encounter Care Teams Blending Tank Tender Relationship Specialty Start Date End Date Pcp, Heaven [address] [place] [address] PCP - General Family Medicine 02/25/25 Francisco [facility] [place] [address] Independent Jeweler 03/02/25 documented as of this encounter
--- OUTSIDE RECORDS SUMMARY | 2025-04-02 08:48 | XMS_ITS | Referral Summary ---
Author Organization [employer] Address [address] [facility] [place] [address] Care Team Providers Care Regulatory Administrator Name Role Phone Subha Cates MD Primary Care Provider [phone] Francisco Javier Eller MD Unavailable Khalida Gustafson MD Unavailable [phone] Encounters Date Type Department Care Team Description 03/21/2025 Abstract [facility] Cardiothoracic Surgery [address] [address] Mita Myles CMA 01/23/2025 Telephone [facility] Cardiothoracic Surgery [address] [address] Mita Myles CMA Follow up appt (Needs CT Chest and Follow up appt.) 01/09/2025 9:30 AM EDT Office Visit [facility] Cardiothoracic Surgery [address] [address] Khalida Gustafson MD Drainage from wound (Primary Dx) 01/04/2025 Orders Only [facility] Cardiothoracic Surgery [address] [address] Provider, MD Dom from Last [...] on file Legal Sex Male 12:29 PM REGULATORY PROCESS MANAGER Gender Identity Not on file Sexual [...] EDT Plan of Treatment Not on file [place] [address] [place] [address] [employer] Care Teams Regulatory Administrator Relationship Specialty [place] [address] [place] [address] PCP - General Family Medicine 11/21/24 Francisco Javier Eller MD [address] [place] [address] [place] [address] Music Video Director Cardiology 11/21/24 Khalida Gustafson MD [address] [place] [address] Surgeon Cardiothoracic Surgery 01/09/25
--- OUTSIDE RECORDS SUMMARY | 2025-04-02 08:48 | XMS_ITS | Clinical Summary ---
Author Organization [employer] Address [address] [place] [address] Care Team Providers Care Auto Cleaner Name Role Phone Subha Cates MD Primary [...] Type Department Care Team Description 03/21/2025 Abstract [facility] Cardiothoracic Surgery [address] [address] Mita Myles CMA 01/23/2025 Telephone [facility] Cardiothoracic Surgery [address] [address] Mita Myles CMA Follow up appt (Needs CT Chest and Follow up appt.) 01/09/2025 9:30 AM EDT Office Visit [facility] Cardiothoracic Surgery [address] [address] Khalida Gustafson MD Drainage from wound (Primary Dx) 01/04/2025 Orders Only [facility] Cardiothoracic Surgery - [address] [facility] [address] [address] Provider, MD Dom from Last [...] on file Legal Sex Male 12:29 PM DYE OPERATOR Gender Identity Not on file Sexual Orientation [...] on patient's age to complete this topic Insurance [place] [address] [employer] Care Teams Auto Cleaner Relationship Specialty [place] [address] [place] [address] PCP - General Family Medicine 11/21/24 Francisco Javier Eller [facility] [place] [address] Bench Examiner Cardiology 11/21/24 Khalida Gustafson MD [address] [facility] [address] [address] Surgeon Cardiothoracic Surgery 01/09/25
--- OUTSIDE RECORDS SUMMARY | 2025-04-02 08:48 | XMS_ITS | Encounter Summary ---
Author Organization Healthcare Address [address] [place] [address] Care Team Providers Care Automobile Repossessor Name Role Phone Pcp, No Primary Care [...] the past 12 months has th e [employer], gas, oil, or water company threatened to [...] Description 04/10/2025 8:30 AM EDT Office Visit [facility] [address] [place] [address] Keny Chin MD [address] [address] documented as of this encounter Visit Diagnoses Not on filedocumented in this encounter Additional Health Concerns Assessment Noted Time A Body Mass Index follow-up plan has been documented for the patient 03/06/2025 9:43 AM EDT documented as of this encounter Care Teams Automobile Repossessor Relationship Specialty Start Date End Date P[place], [place] [address] PCP - General Family Medicine 02/25/25 documented as of this encounter
--- OUTSIDE RECORDS SUMMARY | 2025-04-02 08:49 | XMS_ITS | Encounter Summary ---
Author Organization [employer] Address [address] [place] [address] Care Team Providers Care Debt Management Counselor Name Role Phone Subha Cates MD Primary Care Provider Francisco Javier Eller MD Unavailable [phone] Khalida Gustafson MD Unavailable [phone] Encounter Details Date Type Department Care Team (Late st Contact Info) Description 03/21/2025 Abstract [facility] Cardiothoracic Surgery - [address] [facility] [address] [address] Mita Myles [facility] Social History Tobacco Use Types Packs/Day Years Used Date Smoking Tobacco: Former Cigarettes Smokeless Tobacco: Never Alcohol Use Standard Drinks/Week Comments Never 0 (1 standard drink = 0.6 oz pur e alcohol) Sex and Gender Information Value Date Recorded Sex Assigned at Not on file Legal Sex Male 12:29 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 [place] [id number] Inspector Brake Lining Cardiology 11/21/24 Khalida Gustafson MD [address] [place] [address] Surgeon Cardiothoracic Surgery 01/09/25 documented as of this encounter
--- OUTSIDE RECORDS SUMMARY | 2025-04-02 08:49 | XMS_ITS | Encounter Summary ---
Author Organization Healthcare Address [address] [place] [address] Care Team Providers Care Bulk Gas Specialist Name Role Phone Pcp, No Primary Care Provider Unavailvidal e Francisco Javier Eller MD Unavailable [phone] Encounter Details Date Type Department Care Team [...] a long term (including now)? No 02/27/2025 AUDIT-C Answer Date [...] Description 04/10/2025 8:30 AM EDT Office Visit [facility] [address] [place] [address] Keny Chin MD [address] [place] [address] documented as of this encounter Visit Diagnoses Not on filedocumented in this encounter Additional Health Concerns Assessment Noted Time A fall risk assessment has been complete d for the patient 03/12/2025 10:07 AM EDT A Body Mass Index follow-up plan has been documented for the patient 03/26/2025 11:07 AM EDT documented as of this encounter Care Teams Bulk Gas Specialist Relationship Specialty Start Date End Date Pcp, [place] [address] PCP - General Family Medicine 02/25/25 Francisco Javier Eller [place] [address] Material Handler 1St Shift 03/02/25 documented as of this encounter
--- OUTSIDE RECORDS SUMMARY | 2025-04-02 08:49 | XMS_ITS | Encounter Summary ---
Author Organization Healthcare Address [address] [place] [address] Care Team Providers Care Women'S Swim Coach Name Role Phone Pcp, No Primary Care Provider Unavailabl e Francisco Javier Eller MD Unavailable [phone] Encounter Details Date Type Department Care Team [...] any time in the past 12 m [facility], were you homeless or living in a [...] Description 04/10/2025 8:30 AM EDT Office Visit [facility] [address] [place] [address] Keny Chin MD [address] [address] documented as of this encounter Visit Diagnoses Not on filedocumented in this encounter Additional Health Concerns Assessment Noted Time A Body Mass Index follow-up plan has been documented for the patient 03/08/2025 1:43 PM EDT documented as of this encounter Care Teams Women'S Swim Coach Relationship Specialty Start Date End Date Pcp, No [address] [place] [address] PCP - General Family Medicine 02/25/25 Francisco Javier Eller [facility] [place] [address] Homicide Squad Commanding Officer 03/02/25 documented as of this encounter
--- OUTSIDE RECORDS SUMMARY | 2025-04-02 08:49 | XMS_ITS | Encounter Summary ---
Author Organization Healthcare Address [address] [place] [address] Care Team Providers Care Principal Network Architect Name Role Phone Pcp, No Primary Care Provider Unavailabl e Francisco Javier Eller MD Unavailable [phone] Encounter Details Date Type Department Care Team [...] Description 04/10/2025 8:30 AM EDT Office Visit [address] [address] Keny Chin MD [address] [place] [phone] documented as of this encounter Visit Diagnoses Not on filedocumented in this encounter Additional Health Concerns Assessment Noted Time A fall risk assessment has been complete d for the patient 03/12/2025 10:07 AM EDT A Body Mass Index follow-up plan has been documented for the patient 03/12/2025 10:37 AM EDT documented as of this encounter Care Teams Principal Network Architect Relationship Specialty Start Date End Date Pcp, No [address] [place] [address] PCP - General Family Medicine 02/25/25 Francisco Javier Eller MD [address] [place] [address] Nurse Practitioner Physician Assistant 03/02/25 documented as of this encounter
--- OUTSIDE RECORDS SUMMARY | 2025-04-02 08:49 | XMS_ITS | Clinical Summary ---
Author Organization Healthcare Address [address] [place] [address] Care Team Providers Care Button Inspector Name Role Phone Pcp, No Primary Care Provider Unavailvidal e Francisco Javier Eller MD Unavailable [phone] Allergies No known active allergies Medications Buprenorphine [...] continue 1 each 025 Active HYDROcodone-aceta minophen (Maurice) 5-325 MG tablet Take 1 tablet by [...] Encounters Date Type Department Care Team Description 03/29/2025 12:20 PM EDT Office Visit [facility] [address], [address] [place] [address] Keny Tristan MD Sternal wound infection (Primary Dx) 03/29/2025 Travel 03/27/2025 9:00 AM EDT Office Visit [facility] [address] [place] [phone] Keny Chin MD Osteomyelitis of sternum (CMS/HCC) (Primary Dx) 03/27/2025 Travel 03/26/2025 11:40 AM EDT Office Visit [facility] [address], [address] [place] [address] Sherlyn Cisse MD Presence of prosthetic heart valve (Primary Dx) 03/26/2025 9:43 AM EDT - 03/26/2025 11:59 PM EDT Hospital Encounter [facility] [address], [address] [place] [phone] Presence of prosthetic heart valve Discharge Disposition: Home or Self Care 03/26/2025 Travel 03/14/2025 Telephone [facility] [address], [address] [place] [address] Leela Ayala RN 03/14/2025 Orders Only Cardiothoracic Surgery [address] [place] [address] Indra Mcintosh, CASING RUNNER 03/12/2025 9:40 AM EDT Office Visit [facility] [address], [address] [place] [address] Sherlyn Cisse MD Sternal wound dehiscence, initial encounter (Primary Dx) 03/12/2025 Telephone [facility] [address], [address] [place] [address] Leela Ayala RN 03/12/2025 Travel 03/08/2025 2:00 PM EDT Office Visit [facility] [address], [address] [place] [address] Keny Tristan MD Sternal wound dehiscence, initial encounter (Primary Dx) 03/08/2025 Travel 03/07/2025 Telephone [facility] [address] [place] [phone] Barbara Martins 03/07/2025 Clinical Support [facility] [address] [place] [address] Saul Bey, PharmD 02/27/2025 Travel 02/26/2025 9:00 AM EDT - 02/26/2025 11:30 AM EDT Surgery [facility] [address] [place] [phone] Sherlyn Cisse MD CHEST WASHOUT, REMOVAL OF STERNAL PLATES 02/26/2025 8:43 AM EDT Anesthesia Event [facility] [address] [place] [address] Praneeth Jasmine MD Ram, Harish, MD 02/26/2025 Travel 02/25/2025 2:42 AM EDT - 03/06/2025 1:35 PM EDT Hospital Encounter [facility] [address] [place] [phone] Franco Guillory MD Ogburn, Erinn A, MD Chest wall abscess (Primary Dx); Bacteremia due to Staphylococcus aureus Discharge Disposition: Home or Self Care 02/25/2025 Patient Outreach [facility] [address] [place] [address] Gavin Vargas 02/25/2025 Travel 02/24/2025 Orders Only External Location [address] [place] [address] Provider, External from Last 3 Months Immunizations [...] the past 12 months has th e [employer] gas, oil, or water company threatened to [...] Pulse 84 03/29/2025 1:48 PM EDT Temperature 36.8 C (98.3 F) 03/27/2025 8:46 AM EDT Respiratory Rate 18 03/06/2025 7:30 AM EDT Oxygen Saturation 96% 03/29/2025 1:48 PM EDT Inhaled Oxygen Concentration - - Weight 118 kg (259 lb 7.7 oz) 03/29/2025 1:48 PM EDT Height 188 cm (6' 2 ) 03/26/2025 10:11 AM EDT Body Mass Index 33.32 03/26/2025 10:11 AM EDT Plan of Treatment Upcoming Encounters Date Type Department Care Team (Late st Contact Info) Description 04/10/2025 8:30 AM EDT Office Visit [address] [address] Keny Chin MD [address] [place] [phone] Health Maintenance Due Date Last Done [...] Td or Tdap) 04/16/2024 04/16/2014, 02/03/2013, 10/29/2011 [id number] Vaccine (2 - season) 2024 01/07/2021 [facility]-Influenza Vaccine (Season Ended) 2025 [facility]- SDOH Screenings 08/30/2025 [facility]-Adult SDOH Screenings 08/30/2025 02/27/2025 [facility]-Depression Screening 03/27/2026 025, 03/27/2025, 03/26/2025 [facility]-Zoster Vaccines (1 of 2) 2038 [facility]-HIV Screening Completed 02/25/2025 [facility]-Obesity Intervention Completed 025, 03/26/2025, 03/12/2025, Additional history exists [facility]-HIB Vaccines Aged Out [...] 03/29/2025 12:20 PM EDT Sternal wound infection GENERAL Routine 03/26/2025 11:40 AM EDT Presence of prosthetic heart valve XR CHEST 2 VIEWS Routine 03/26/2025 9:56 AM EDT Presence of prosthetic heart valve CBC W/O DIFFERENTIAL Routine 03/26/2025 9:39 AM EDT Presence of prosthetic heart valve BASIC METABOLIC PANEL, PLASMA Routine 03/26/2025 9:39 AM EDT Presence of prosthetic heart valve CBC WITH AUTO DIFFERENTIAL Routine 03/26/2025 C-REACTIVE PROTEIN, PLASMA Routine 03/26/2025 UREA NITROGEN, PLASMA Routine 03/26/2025 CREATININE, PLASMA Routine 03/26/2025 CBC WITH AUTO DIFFERENTIAL Routine 03/19/2025 C-REACTIVE PROTEIN, PLASMA Routine 03/19/2025 UREA NITROGEN, PLASMA Routine 03/19/2025 CREATININE, PLASMA Routine 03/19/2025 CBC WITH AUTO DIFFERENTIAL Routine 03/12/2025 C-REACTIVE PROTEIN, PLASMA Routine 03/12/2025 UREA NITROGEN, PLASMA Routine 03/12/2025 CREATININE, PLASMA Routine 03/12/2025 INSERT PICC LINE Routine 03/04/2025 4:4 9 PM EDT MORPHOLOGY Routine 03/03/2025 2:11 AM [...] ANESTHESIA PLACEHOLDER Routine 02/26/2025 8:53 AM EDT W[place] AN ELECTIVE ENDOTRACHEAL AIRWAY Routine 02/26/2025 8:53 [...] Leos APRN Authorized by: Leos, Meera M, CASING RUNNER Consent obtained: Verbal Consent given by: Patient [...] Tolerated well, no immediate complications Meera Leos CASING RUNNER IN CLINIC/BEDSIDE ORDERABLES Final Result * XR [...] LAB HEMATOLOGY METHOD 03/26/2025 10:35 AM EDT [facility] RBC Count 6.12(H) 4.60 - 6.10 10*6/uL LAB HEMATOLOGY METHOD 03/26/2025 10:35 AM EDT [facility] HGB 17.4 13.7 - 17.5 g/dL LAB HEMATOLOGY METHOD 03/26/2025 10:35 AM EDT [facility] HCT 53.5(H) 40.0 - 51.0 % LAB HEMATOLOGY METHOD 03/26/2025 10:35 AM EDT [facility] Platelet Count 168 155 - 369 10*3/uL LAB HEMATOLOGY METHOD 03/26/2025 10:35 AM EDT [facility] MCV 87 79 - 98 fL LAB HEMATOLOGY METHOD 03/26/2025 10:35 AM EDT [facility] MCH 28.4 26.0 - 32.0 pg LAB HEMATOLOGY METHOD 03/26/2025 10:35 AM EDT [facility] MCHC 32.5 30.7 - 35.5 g/dL LAB HEMATOLOGY METHOD 03/26/2025 10:35 AM EDT [facility] RDW 13.4 11.5 - 14.5 % LAB HEMATOLOGY METHOD 03/26/2025 10:35 AM EDT [facility] MPV 10.6 8.8 - 12.5 fL LAB HEMATOLOGY METHOD 03/26/2025 10:35 AM EDT [facility] nRBC 0.0 <=0.0 per 100 WBCs LAB HEMATOLOGY METHOD 03/26/2025 10:35 AM EDT [facility] Blood Venous blood specimen / Unknown Venipuncture / Unknown 03/26/2025 9:39 AM EDT 03/26/2025 9:40 AM EDT us Sherlyn Cisse MD LAB BLOOD ORDERABLES Final Res ult [facility] [address] [place] [address] * (ABNORMAL) Basic Metabolic Panel, Plasma (03/26/2025 9:39 AM EDT) Only the most recent of4 resultswithin the time period is included. Glucose, Plasma 59(L) 74 - 99 mg/dL 03/26/2025 10:51 AM EDT [facility] BUN, Plasma 11 7 - 21 mg/dL 03/26/2025 10:51 AM EDT [facility] Creatinine, Plasma 1.06 0.70 - 1.20 mg/dL 03/26/2025 10:51 AM EDT [facility] BUN/Creatinine Ratio 10 03/26/2025 10:51 AM EDT [facility] Sodium, Plasma 140 136 - 145 mmol/L 03/26/2025 10:51 AM EDT [facility] Potassium, Plasma 4.3 3.6 - 4.9 mmol/L 03/26/2025 10:51 AM EDT [facility] Chloride, Plasma 102 97 - 107 mmol/L 03/26/2025 10:51 AM EDT [facility] CO2, Plasma 27 22 - 29 mmol/L 03/26/2025 10:51 AM EDT [facility] Anion Gap 11 6 - 16 mmol/L 03/26/2025 10:51 AM EDT [facility] Total Calcium, Plasma 10.3(H) 8.9 - 10.2 mg/dL 03/26/2025 10:51 AM EDT [facility] eGFRcr 93.3 mL/min/1.7 3m*2 03/26/2025 10:51 AM EDT [facility] Comment:Reported eGFRcr in m L/min/1.73m2 is based the CKD-EPI 2020 equation that does not use a race coefficient. Blood Venous blood specimen / Unknown Venipuncture / Unknown 03/26/2025 9:39 AM EDT 03/26/2025 9:40 AM EDT Sherlyn Cisse MD LAB BLOOD ORDERABLES Final Res ult [facility] [address] [place] [address] * Creatinine, Plasma (03/26/2025) Only the most recent of3 resultswithin the time period is included. Pathologist [facility] External Creatinine Blood 1.00 0.66 - 1.25 mg/dL Blood Venous blood specimen / Unknown 03/26/2025 Keny Chin MD LAB BLOOD ORDERABLES Final Re sult * CBC and Differential (03/26/2025) Only the most recent of5 resultswithin the time period is included. External WBC 6.2 4.8 - 10.8 K/mm3 External Red Blood Cell (RBC) 5.77 4.60 - 6.20 M/mm3 External Hemoglobin (Hgb) 16.10 14.10 - 18.00 g/dL External Platelet Count (Plt) 147 142 - 424 K/mm3 External Neutrophil Abs 4.6 1.8 - 7.8 K/mm3 External Lymphocyte-Absol newtok 1.1 0.7 - 4.5 K/mm3 External Eos-Absolute 0.1 0.0 - 0.4 K/mm3 Blood Venous blood specimen / Unknown 03/26/2025 Keny Chin MD LAB BLOOD ORDERABLES Final Re sult * (ABNORMAL) C-Reactive Protein, Plasma (03/26/2025) Only the most recent of4 resultswithin the time period is included. Pathologist [facility] External C-Reactive Protein(CRP) 7.9(A) 0 - 4 mg/L Blood Venous blood specimen / Unknown 03/26/2025 Keny Chin MD LAB BLOOD ORDERABLES Final Re sult * Urea Nitrogen, Plasma (03/26/2025) Only the most recent of3 resultswithin the time period is included. 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: [employer] Catheter placed: Single lumen Catheter size: 4 [...] LAB HEMATOLOGY METHOD 03/03/2025 3:14 AM EDT [facility] Platelet Estimate Platelet smear estimate consistent with automated count LAB HEMATOLOGY METHOD 03/03/2025 3:14 AM EDT [facility] Blood Venous blood specimen / Unknown Venipuncture / Unknown 03/03/2025 2:11 AM EDT 03/03/2025 2:25 AM EDT us Kelsie Carty APRN LAB BLOOD ORDERABLES Final R esult [facility] [address] [place] [address] * (ABNORMAL) Manual Differential (03/03/2025 2:11 AM EDT) Blasts % 0 % LAB HEMATOLOGY METHOD 03/03/2025 3:14 AM EDT [facility] Promyelocytes % 0 % LAB HEMATOLOGY METHOD 03/03/2025 3:14 AM EDT [facility] Myelocytes % 2 % LAB HEMATOLOGY METHOD 03/03/2025 3:14 AM EDT [facility] Metamyelocytes % 3 % LAB HEMATOLOGY METHOD 03/03/2025 3:14 AM EDT [facility] Neutrophils % 75 % LAB HEMATOLOGY METHOD 03/03/2025 3:14 AM EDT [facility] Lymphocytes % 14 % LAB HEMATOLOGY METHOD 03/03/2025 3:14 AM EDT [facility] Reactive Lymphocytes % 0 % LAB HEMATOLOGY METHOD 03/03/2025 3:14 AM EDT [facility] Monocytes % 3 % LAB HEMATOLOGY METHOD 03/03/2025 3:14 AM EDT [facility] Eosinophils % 3 % LAB HEMATOLOGY METHOD 03/03/2025 3:14 AM EDT [facility] Basophils % 0 % LAB HEMATOLOGY METHOD 03/03/2025 3:14 AM EDT [facility] Blasts Absolute 0.00 10*3/UL LAB HEMATOLOGY METHOD 03/03/2025 3:14 AM EDT [facility] Promyelocytes Absolute 0.00 10*3/uL LAB HEMATOLOGY METHOD 03/03/2025 3:14 AM EDT [facility] Myelocytes Absolute 0.21 10*3/uL LAB HEMATOLOGY METHOD 03/03/2025 3:14 AM EDT [facility] Metamyelocytes Absolute 0.31 10*3/uL LAB HEMATOLOGY METHOD 03/03/2025 3:14 AM EDT [facility] Neutrophils Absolute 7.72(H) 1.60 - 6.10 10*3/uL LAB HEMATOLOGY METHOD 03/03/2025 3:14 AM EDT [facility] Lymphocytes Absolute 1.44 1.20 - 3.90 10*3/uL LAB HEMATOLOGY METHOD 03/03/2025 3:14 AM EDT [facility] Reactive Lymphocytes Absolute 0.00 10*3/uL LAB HEMATOLOGY METHOD 03/03/2025 3:14 AM EDT [facility] Monocytes Absolute 0.31 0.30 - 0.90 10*3/uL LAB HEMATOLOGY METHOD 03/03/2025 3:14 AM EDT [facility] Eosinophils Absolute 0.31 0.00 - 0.50 10*3/uL LAB HEMATOLOGY METHOD 03/03/2025 3:14 AM EDT [facility] Basophils Absolute 0.00 0.00 - 0.10 10*3/uL LAB HEMATOLOGY METHOD 03/03/2025 3:14 AM EDT [facility] Blood Venous blood specimen / Unknown Venipuncture / Unknown 03/03/2025 2:11 AM EDT 03/03/2025 2:25 AM EDT us Kelsie Carty APRN LAB BLOOD ORDERABLES Final R esult [facility] [address] [place] [address] * Blood Culture (Aerobic/Anaerobet Set) (03/03/2025 2:11 AM EDT) Only the most recent of8 resultswithin the time period is included. Pathologist [facility] Culture No growth at day 5 GEENA 03/08/2025 4:02 AM EDT [facility] Blood Structure of antecubital vein / Unknown Venipuncture / Unknown 03/03/2025 2:11 AM EDT 03/03/2025 3:04 AM EDT Narrative [facility] - 03/08/2025 4:02 AM EDT Low blood volume submitted, results may be compromised Kelsie Carty APRN LAB MICROBIOLOGY - GENERAL O RDERABLES Final Result Performing Organization Address [facility] Co de Phone Number [facility] [address] [place] [address] * Magnesium, Plasma (03/03/2025 2:11 AM EDT) Only the most recent of3 resultswithin the time period is included. [facility] Magnesium, Plasma 2.2 1.9 - 2.4 mg/dL 03/03/2025 2:55 AM EDT [facility] Blood Venous blood specimen / Unknown Venipuncture / Unknown 03/03/2025 2:11 AM EDT 03/03/2025 2:23 AM EDT us Kelsie Carty APRN LAB BLOOD ORDERABLES Final R esult Performing Organization Address [facility]/ZIP Co de Phone Number [facility] [address] [place] [address] * (ABNORMAL) Hepatic function panel (03/03/2025 2:11 AM EDT) Pathologist [facility] Conjugated Bilirubin, Plasma <0.2 <=0.3 mg/dL 03/03/2025 2:55 AM EDT [facility] Comment:Hemolyzed, result ma y be falsely decreased. Alkaline Phosphatase, Plasma 99 40 - 115 U/L 03/03/2025 2:55 AM EDT [facility] Total Bilirubin, Plasma 0.3 0.2 - 1.1 mg/dL 03/03/2025 2:55 AM EDT [facility] Albumin, Plasma 3.3(L) 3.5 - 5.2 g/dL 03/03/2025 2:55 AM EDT [facility] Total Protein 7.9 6.3 - 7.9 g/dL 03/03/2025 2:55 AM EDT [facility] ALT, Plasma 36 10 - 50 U/L 03/03/2025 2:55 AM EDT [facility] AST, Plasma 46 10 - 50 U/L 03/03/2025 2:55 AM EDT [facility] Comment:Hemolyzed, result ma y be falsely increased. Blood Venous blood specimen / Unknown Venipuncture / Unknown 03/03/2025 2:11 AM EDT 03/03/2025 2:23 AM EDT us Kelsie Carty APRN LAB BLOOD ORDERABLES Final R esult [facility] [address] [place] [address] * PERIPHERAL IV (SMARTFORM LINK) (02/27/2025 6:13 [...] Tricuspid Valve: The leaflets appear thickened. 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 There appears to be [...] is no recent study available for direct [id number]-pu-bfka comparison. Left Ventricle Based on the linear [...] Tricuspid Valve The leaflets appear thickened. 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 There appears to be [...] is no recent study available for direct btmy-rt-grck comparison. Wall Scoring Baseline Score Index: 1.00 [...] - 40.0 ug/mL 02/27/2025 11:21 AM EDT [facility] Blood Venous blood specimen / Unknown Venipuncture / Unknown 02/27/2025 10:46 AM EDT 02/27/2025 10:52 AM EDT Narrative [facility] - 02/27/2025 11:21 AM EDT Therapeutic Peak level: 20-40ug/mL Supra-therapeutic Peak level: >40 ug/mL us Alejandro AARON LAB BLOOD ORDERABLES Final R esult [facility] [address] [place] [address] * Hemoglobin A1c (02/27/2025 4:33 AM EDT) Hemoglobin A1c 5.4 <5.7 % 02/27/2025 7:06 AM EDT [facility] Blood Venous blood specimen / Unknown Venipuncture / Unknown 02/27/2025 4:33 AM EDT 02/27/2025 4:45 AM EDT Narrative [facility] - 02/27/2025 7:06 AM EDT HA1C Interpretive Data: Diagnosis of Diabetes: Diabetic > or = 6.5% Pre-diabetic 5.7 to 6.4% Non-diabetic < or = 5.6% Glycemic Targets for Type I and Type II Diabetics: Non- Adults <7.0% Adults <6.0% Children and Adolescents <7.5% Source: [place] [employer]. Standards of medical care in diabetes,2017. Diabetes Care.2017:40 (suppl 1):S1-S135. us Alejandro AARON LAB BLOOD ORDERABLES Final R esult [facility] [address] [place] [address] * (ABNORMAL) Lipid panel (02/27/2025 4:33 AM EDT) [facility] Cholesterol, Plasma 108 <200 mg/dL 02/27/2025 5:14 AM EDT [facility] Comment: Cholesterol Reference Range (age >17 years): Desirable <200 mg/dL Borderline 200 to 239 mg/dL Undesirable >239 mg/dL HDL 28(L) >=40 mg/dL 02/27/2025 5:14 AM EDT [facility] Comment: HDL Cholesterol Reference Ranges (age >17 years): Female, acceptable > or = 50 mg/dL Male, acceptable > or = 40 mg/dL Triglycerides, Plasma 94 <150 mg/dL 02/27/2025 5:14 AM EDT [facility] Comment: Triglyceride Reference Range (age >17 years): Desirable: <150 mg/dL Borderline high: 150 to 199 mg/dL High: 200 to 499 mg/dL Very high: >499 mg/dL Increased risk of pancreatitis: >1000 mg/dL Cholesterol/HDL Ratio 4 02/27/2025 5:14 AM EDT [facility] LDL, Calculated 62 <100 mg/dL 5:14 AM EDT [facility] Comment: LDL Cholesterol Reference [...] 12 hours? No 02/27/2025 5:14 AM EDT [facility] Blood Venous blood specimen / Unknown Venipuncture / Unknown 02/27/2025 4:33 AM EDT 02/27/2025 4:42 AM EDT us Alejandro AARON LAB BLOOD ORDERABLES Final R esult [facility] [address] [place] [address] * XR Chest 1 View (02/27/2025 2:37 [...] at 4 Weeks 03/27/2025 8:06 AM EDT [facility] DANY Source not suitable for smear 03/27/2025 8:06 AM EDT [facility] Foreign Body Bone structure of sternum / Unknown 02/26/2025 10:10 AM EDT 02/26/2025 11:21 AM EDT Comment:Pre-op diagnosis: Chest wall abscess [L02.213] Sherlyn Cisse MD LAB MICROBIOLOGY - GENERAL ORD ERABLES Final Result Performing Organization Address City/State/[facility] Co de Phone Number [facility] [address] [place] [address] * (ABNORMAL) Routine Culture and Gram Stain (02/26/2025 10:10 AM EDT) Culture Light Growth 03/01/2025 3:23 PM EDT [facility] Culture Staphylococcus aureus(A) GEENA 03/01/2025 3:23 PM EDT [facility] Foreign Body Bone structure [...] MICROBIOLOGY - GENERAL ORD [place] [address] * Anaerobic Culture (02/26/2025 10:10 AM EDT) Only the most recent of2 resultswithin the time period is included. Culture No anaerobes isolated 03/03/2025 5:50 AM EDT [facility] Foreign Body Bone structure of sternum / Unknown 02/26/2025 10:10 AM EDT 02/26/2025 11:21 AM EDT Comment:Pre-op diagnosis: Chest wall abscess [L02.213] Sherlyn Cisse MD LAB MICROBIOLOGY - GENERAL ORD ERABLES Final Result Performing Organization Address City/[facility]/ZIP Co de Phone Number [facility] [address] [place] [address] * (ABNORMAL) POCT arterial blood gas gem [...] - 3 mmol/L 02/26/2025 9:44 AM EDT [facility] HCO3, Arterial 26.6(H) 22 - 26 mmol/L 02/26/2025 9:44 AM EDT [facility] Total Hemoglobin, Arterial, Whole Blood 13.6(L) 13.7 - 17.5 g/dL 02/26/2025 9:44 AM EDT [facility] Hematocrit, Arterial 41.0 40 - 51.0 % 02/26/2025 9:44 AM EDT [facility] Sodium, Arterial 135(L) 136 - 145 mmol/L 02/26/2025 9:44 AM EDT [facility] Potassium, Arterial 4.1 3.6 - 4.9 mmol/L 02/26/2025 9:44 AM EDT [facility] Chloride, Whole Blood 104 97 - 107 mmol/L 02/26/2025 9:44 AM EDT [facility] Glucose, Arterial 106(H) 74 - 99 mg/dL 02/26/2025 9:44 AM EDT [facility] Ionized Calcium, Arterial 4.7 4.6 - 5.1 mg/dL 02/26/2025 9:44 AM EDT [facility] Lactate, Arterial 0.6 0.5 - 1.6 mmol/L 02/26/2025 9:44 AM EDT [facility] Body Temperature 37.0 Celsius 02/26/2025 9:44 AM EDT [facility] pH, Temp Corrected, Arterial 7.42 7.35 - 7.45 02/26/2025 9:44 AM EDT [facility] pCO2, Temp Corrected, Arterial 41 32 - 45 mm Hg 02/26/2025 9:44 AM EDT [facility] pO2, Temp Corrected, Arterial 105 83 - 108 mm Hg 02/26/2025 9:44 AM EDT [facility] Network Control Supervisor ID Carina Jordan 02/26/2025 9:44 AM EDT [facility] Blood, Arterial Whole blood specimen / Unknown 02/26/2025 9:42 AM EDT 02/26/2025 9:44 AM EDT Sherlyn Cisse MD LAB POINT OF CARE TE ST DOCKED DEVICE UNSOLICITED RESULTS Final Result [facility] [address] [place] [address] * (ABNORMAL) Abscess Culture and Gram Stain (02/26/2025 9:34 AM EDT) Culture Light Growth 03/01/2025 3:22 PM EDT [facility] Culture Staphylococcus aureus(A) GEENA 03/01/2025 3:22 PM EDT [facility] Comment:The organism value f or this result has been updated. These results have been appended to the previously preliminary verified report. Gram Stain Result Few Polymorphonuclear leukocytes(A) 03/01/2025 3:22 PM EDT [facility] Gram Stain Result Few Gram positive cocci in pairs(A) 03/01/2025 3:22 PM EDT [facility] Swab Bone structure of [...] MICROBIOLOGY - GENERAL ORD ERABLES Final Result [facility] [address] [place] [address] * Fungal Culture, Routine (02/26/2025 9:34 AM EDT) Culture No Fungal Growth at 1 Week 03/06/2025 9:03 AM EDT [facility] Swab Bone structure of sternum / Unknown 02/26/2025 9:34 AM EDT 02/26/2025 11:01 AM EDT Comment:Pre-op diagnosis: Chest wall abscess [L02.213] Sherlyn Cisse MD LAB MICROBIOLOGY - GENERAL ORD ERABLES Final Result [facility] [address] [place] [address] * PB ANESTHESIA NON-TIMED PROCEDURE PLACEHOLDER (02/26/2025 [...] MD ANESTHESIA ORDERABLES Final Res ult * [place] AN ELECTIVE ENDOTRACHEAL AIRWAY, PB ANESTHESIA PLACEHOLDER [...] ORDERABL ES Final Result BLOOD BANK [address] [place] [address], * (ABNORMAL) Wound Culture and Gram Stain (02/25/2025 4:46 AM EDT) CULTURE READING WOUND Moderate Growth 02/27/2025 3:19 PM EDT [facility] CULTURE READING WOUND Staphylococcus aureus(A) GEENA 02/27/2025 3:19 PM EDT [facility] Comment:The organism value f or this result has been updated. These results have been appended to the previously preliminary verified report. Gram Stain Result Numerous Polymorphonuclear leukocytes(A) 02/27/2025 3:19 PM EDT [facility] Gram Stain Result Numerous Gram positive cocci in pairs(A) 02/27/2025 3:19 PM EDT [facility] Gram Stain Result Numerous Gram positive cocci in clusters(A) 02/27/2025 3:19 PM EDT [facility] Swab Skin structure / [...] ORD ERABLES Final Result Performing Organization Address City/[facility]/ZIP Co de Phone Number [facility] [address] [place] [address] * ED HIV 1/2 Antibody/Antigen Screen w/Reflex to HIV 1/2 Differentiation (02/25/2025 3:18 AM EDT) Pathologist [facility] HIV 1 & 2 Antibody/Antigen Screen Non Reactive Non Reactive 02/25/2025 4:35 AM EDT [facility] Comment:Screening for HIV 1 & 2 antibodies, and P24 antigen is NONREACTIVE. No confirmatory testing is required. Blood Venous blood specimen / Unknown Venipuncture / Unknown 02/25/2025 3:18 AM EDT 02/25/2025 3:53 AM EDT Franco Guillory MD LAB BLOOD ORDERABLES Final Res ult Performing Organization Address [facility]/ZIP Co de Phone Number [facility] [address] [place] [address] * (ABNORMAL) Bacterial ID Gram Positive (02/25/2025 3:18 AM EDT) Pathologist [facility] Staphylococcus Result Detected( A) Not Detected 02/26/2025 4:46 AM EDT [facility] Comment:Assess if contaminan t or clinically relevant pathogen. Consider clinical stability and immune status of patient. Blood Venous blood specimen / Unknown Venipuncture / Unknown 02/25/2025 3:18 AM EDT 02/25/2025 4:04 AM EDT Narrative [facility] - 02/26/2025 4:46 AM [...] MICROBIOLOGY - GENERAL ORD ERABLES Final Result [facility] [address] [place] [address] * Hepatitis C Virus (HCV) Quantitative PCR - ED (02/25/2025 3:18 AM EDT) [facility] Hepatitis C Virus (HCV) Quantitative Interpretation Not Detected Not Detected. 02/27/2025 2:45 PM EDT [facility] Blood Venous blood specimen / Unknown Venipuncture / Unknown 02/25/2025 3:18 AM EDT 02/25/2025 3:53 AM EDT Narrative [facility] - 02/27/2025 2:45 PM EDT The Huaat M2000 HCV test is a Real Time [...] ORDERABLES Final Res ult Performing Organization Address [facility] [place] [address] * (ABNORMAL) Hepatitis C Antibody - ED (02/25/2025 3:18 AM EDT) Pathologist [facility] Hepatitis C Antibody Positive(A ) Negative 02/25/2025 4:40 AM EDT [facility] Blood Venous blood specimen / Unknown Venipuncture / Unknown 02/25/2025 3:18 AM EDT 02/25/2025 3:53 AM EDT Franco Guillory MD LAB BLOOD ORDERABLES Final Res ult Performing Organization Address [facility] [place] [address] * (ABNORMAL) Sed rate, automated (02/25/2025 3:18 AM EDT) [facility] Sedimentation Rate 65(H) <15 mm/hr 2024 3:54 AM EDT [facility] Blood Venous blood specimen / Unknown Venipuncture / Unknown 02/25/2025 3:18 AM EDT 02/25/2025 3:40 AM EDT Franco Guillory MD LAB BLOOD ORDERABLES Final Res ult Performing Organization Address City/[facility] [place] [address] * Phosphorus (02/25/2025 3:18 AM EDT) [facility] Phosphorus, Plasma 2.7 2.5 - 4.5 mg/dL 02/25/2025 4:23 AM EDT [facility] Blood Venous blood specimen / Unknown Venipuncture / Unknown 02/25/2025 3:18 AM EDT 02/25/2025 3:53 AM EDT us Franco Guillory MD LAB BLOOD ORDERABLES Final Res ult [facility] [address] [place] [address] * (ABNORMAL) CMP (02/25/2025 3:18 AM EDT) Glucose, Plasma 132(H) 74 - 99 mg/dL 02/25/2025 4:23 AM EDT [facility] BUN, Plasma 13 7 - 21 mg/dL 02/25/2025 4:23 AM EDT [facility] Creatinine, Plasma 0.86 0.70 - 1.20 mg/dL 02/25/2025 4:23 AM EDT [facility] BUN/Creatinine Ratio 15 02/25/2025 4:23 AM EDT [facility] Sodium, Plasma 137 136 - 145 mmol/L 02/25/2025 4:23 AM EDT [facility] Potassium, Plasma 3.7 3.6 - 4.9 mmol/L 02/25/2025 4:23 AM EDT [facility] Chloride, Plasma 101 97 - 107 mmol/L 02/25/2025 4:23 AM EDT [facility] CO2, Plasma 24 22 - 29 mmol/L 02/25/2025 4:23 AM EDT [facility] Anion Gap 12 6 - 16 mmol/L 02/25/2025 4:23 AM EDT [facility] Total Calcium, Plasma 9.2 8.9 - 10.2 mg/dL 02/25/2025 4:23 AM EDT [facility] Total Protein 7.4 6.3 - 7.9 g/dL 02/25/2025 4:23 AM EDT [facility] Albumin, Plasma 3.5 3.5 - 5.2 g/dL 02/25/2025 4:23 AM EDT [facility] AST, Plasma 20 10 - 50 U/L 02/25/2025 4:23 AM EDT [facility] Comment:Hemolyzed, result ma y be falsely increased. ALT, Plasma 16 10 - 50 U/L 02/25/2025 4:23 AM EDT [facility] Alkaline Phosphatase, Plasma 100 40 - 115 U/L 02/25/2025 4:23 AM EDT [facility] Total Bilirubin, Plasma 0.7 0.2 - 1.1 mg/dL 02/25/2025 4:23 AM EDT [facility] eGFRcr 115.1 mL/min/1.7 3m*2 02/25/2025 4:23 AM EDT [facility] Comment:Reported eGFRcr in m L/min/1.73m2 is based the CKD-EPI 2020 equation that does not use a race coefficient. Blood Venous blood specimen / Unknown Venipuncture / Unknown 02/25/2025 3:18 AM EDT 02/25/2025 3:53 AM EDT us Franco Guillory MD LAB BLOOD ORDERABLES Final Res ult [facility] [address] [place] [address] * CT THORACIC OUTSIDE IMAGES (02/24/2025 8:44 [...] updated to appropriate status: Yes Care Teams Button Inspector Relationship Specialty Start Date End Date Pcp, No [address] [place] [address] PCP - General Family Medicine 02/25/25 Francisco Javier Eller [facility] [place] [address] Mdm Sr 03/02/25
[2025-04-02 08:57] LABS: Basophils % 0.8 % (0.1-2.0); Eosinophils # 0.2 Kmm3 (0.0-0.4); Eosinophils % 2.8 % (0.1-12.0); Hematocrit 49.6 % (42.0-52.0); Hemoglobin 16.4 g/dL (14.1-18.0); Immature Granulocytes # 0.03 10^3uL; Immature Granulocytes % 0.6 %; Lymphocytes # 1.1 K/mm3 (0.7-4.5); Lymphocytes % 21.6 % (10-50); Mean Corpuscular HGB Conc 33.1 g/dL (31.8-35.4); Mean Corpuscular Hemoglobin 28.9 pg (27.0-31.2); Mean Corpuscular Volume 87.5 fl (80-94); Mean Platelet Volume 10.5 fl (7.4-10.4); Monocytes # 0.3 K/mm3 (0.1-1.0); Neutrophils # 3.6 K/mm3 (1.8-7.8); Neutrophils % 68.2 % (37.0-80.0); Nucleated Red Blood Cells # 0 10^3/uL; Nucleated Red Blood Cells % 0 %; Platelet Count 120 K/mm3 (142-424); Red Blood Count 5.67 M/mm3 (4.60-6.20); Red Cell Distribution Width 13.1 % (11.5-17.5); Red Cell Distribution Width-SD 41.4 fL; White Blood Count 5.3 K/mm3 (4.8-10.8)
[2025-04-02 09:06] LABS: Blood Urea Nitrogen 13 mg/dl (9-20); Creatinine Clearance Estimated 189 mL/min (50-200); Estimated Glomerular Filt Rate 95 ml/min (>60); GFR (African American) 116 ML/MIN (>60)
[2025-04-02 09:11] LABS: C-Reactive Protein 8.3 mg/L (0-4)
== END 2025-04-02 09:00 | disposition home or self-care (01) ==
LOC: INF 08:44
PROVIDERS: Visit Provider Physician Assistant
DX: R78.81 Bacteremia (principal); B95.61 Methicillin susceptible Staphylococcus aureus infection as the cause of diseases classified elsewhere
CPT/HCPCS: 36592; 82565; 84520; 85025; 86140; 96523

== ENCOUNTER 2025-04-02 09:00 | Outpatient (RCR) | payer OTHER, MEDICAID, SELFPAY | END 2025-04-02 23:59 | disposition home or self-care (01) | LOC: PT 09:00 | PROVIDERS: Visit Provider Student in an Organized Health Care Education/Training Program | DX: L02.213 Cutaneous abscess of chest wall (principal) | CPT/HCPCS: 97163; 97606 ==

== ENCOUNTER 2025-04-09 09:34 | Outpatient (CLI) | payer OTHER, MEDICAID, SELFPAY ==
--- OUTSIDE RECORDS SUMMARY | 2025-02-25 02:42 | XMS_ITS | Encounter Summary ---
Author Organization Healthcare Address [address] [place] [address] Care Team Providers Care Afterschool Babysitter Name Role Phone Pcp, No Primary Care Provider Unavailvidal e Francisco Javier Eller MD Unavailable [phone] Reason for Visit * Reason Comments Wound Check * Auth/Cert (Routine) Specialty Diagnoses / Procedures Referred By Contac t Referred To Contact Diagnoses Sternal wound dehiscence, initial encounter chest abscess at surgical scar near mediastinum with hx cabg 2021 at [facility] Sherlyn Daniel MD [address] [address] Phone: tel: fax: P[facility] A Emergency Department [address] [place] [address] Phone: tel: Referral ID Status Reason Start Date Expiration Date Visits Re quested Visits Authorized [id number] 1 1 Encounter Details Date Type Department Care Team (Latest Contact Info) Description 02/25/2025 2:42 AM EDT - 03/06/2025 1:35 PM EDT Hospital Encounter [facility] A Inpatient [address] [place] [id number] Franco Guillory MD [address] [place] [address] Sheryln Daniel MD [address] [address] Chest wall abscess (Primary Dx); [...] any time in the past 12 m [facility], were you homeless or living in a skilled nursing (including now)? No 02/27/2025 Utilities Answer Date [...] 1 each 5 04/10/20 25 HYDROcodone-acetami nophen (Acme) 5-325 MG tablet Take 1 tablet by [...] Daniel MD PCP name and Address: Pcp, [address] [address] Referring provider name and address: Stephen Tello NP [address] [place] [address] [place], [place] Chief Concern, Brief History of Present Illness, and Hospital Course Alex Amaya is a 34 y.o. male with history of IV drug use on suboxone, infectious endocarditisrequiring tricuspid valve repair in [place] in 2019. He states that he had to have several incision and drainages of the superior aspect of his sternotomy scar that occurred in the medical facility at the alf that he was in due to drainage [...] and got worse so he went to [facility] where he was found to have [...] medications were sent to [facility] - [place], [place] - [address], [facility] [address] ceFAZolin injection These medications were sent to [facility] - [place], [place] - [address] [facility] [address] lidocaine 5 % patch methocarbamol 750 MG [...] leaflet repair and De Lucas procedure at [facility] ([place]) - OSH CT imaging uploaded and reviewed - 02/25: BCx (+) staph aureus - Underwent chest washout, wound debridement, removal of sternal plates, and wound vac placement on02/[address] Daniel (silver sponge so no WV change til Wednesday) - TTE shows LVEF 59%, mod dilated RV with nl RV fx. TV leaflets thickened. 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 There appears to be restricted [...] 03/26/2025 11:40 AM Sherlyn Daniel MD [facility] 03/27/2025 9:00 AM Keny Chin MD [facility] [place] 04/10/2025 9:00 AM Leela Chin MD [facility] [place] Follow-up: [facility] Ell[facility] [place] [id number] Go on 04/26/2025 Your appointment time is 2:10pm Please arrive 15 minutes early and bring bottles of medication [facility] [address] [place] [address] Go on 03/12/2025 03/12/25 at 11:30 AM - Infusion Center for PICC and labs Wound Vac Changes MWF - same location, but in Physical Therapy Department - First Appointment 03/14/25 9:00 AM [facility] [address] [place] [address] Follow up for IV antibiotics and supplies Stephen Tello, SONYA [address] [place] [address] [facility] Test Results Pending At [...] Note Alex Amaya 34 y.o. male CSN: [id number] Admission: 02/25/2025 2:42 AM Primary Problem: Sternal wound dehiscence, initial encounter Primary Shoeshiner: Primary Caregiver: Self Assistance Available at Discharge: Availability of Care Givers (#Hours): 24 hours, No assistance needed Family/Shoeshiner(s) Willingness Assessed to care for patient at [...] days Follow-up: Francisco Javier Eller MD [address] [id number] Go on 04/26/2025 Your appointment time is 2:10pm Please arrive 15 minutes early and bring bottles of medication [facility] [address] [place] [id number] Go on 03/12/2025 03/12/25 at 11:30 AM - Infusion Center for PICC and labs Wound Vac Changes MWF - same location, but in Physical Therapy Department - First Appointment 03/14/25 9:00 AM [facility] [address] [place] [address] Follow up for IV antibiotics and supplies Stephen Tello, GYMNASTIC COACH [address] [place] [address] [facility] Discharge Transportation: Transportation Anticipated: [...] vac changes and then will go to [facility]. S/O will assist and transport. Lise [...] note were not included. [address] [place]: Rescue Guide for Opioid Overdose Step 1 [...] for use in the nose. * [facility] - Barbara Martins - 03/06/2025 9:41 AM EDT Images from the original note were not included. [id number] Methocarbamol Brand Name(s): Robaxin??; also available generically [...] be awakened, immediately call emergency services at 224. What OTHER INFORMATION should I know? Keep all appointments with your doctor. Do not let anyone else take your medication. Ask your pharmacist any questions you have about refilling your prescription. It is important for you to keep a written list of all of the prescription and nonprescription (yvop-nax-wvuiojn) medicines you are taking, as well as [...] or pharmacist about specific clinical use. The [employer] represents that the information provided hereunder was formulated with a reasonable standard of care, and in conformity with professional standards in the field. The [employer] makes no representations or warranties, express or implied, including, but not limited to, any implied warranty of merchantability and/or fitness for a particular purpose, with respect to such information and specifically disclaims all such warranties. Users are advised that decisions regarding drug therapy are complex medical decisions requiring the independent, informed decision of an appropriate health medicare contact specialist, and the information is provided for informational purposes only. The entire monograph for a drug should be reviewed for a thorough understanding of the drug's actions, uses and side effects. The [employer] does not endorse or recommend the use of any drug.The information is not a substitute for medical care. AHFS?? Patient Medication Information?. ?? Copyright, 2023. The [employer]??, [address], [address], [place], [place]. All Rights Reserved. Duplication for commercial use must be authorized by [facility]. Selected Revisions: May 18, 2017. AHFS?? Patient Medication Information?. ?? Copyright, 2024 * Tyler Easley - Barbara Martins - 03/06/2025 9:41 AM EDT Images from the original note were not included. [id number] Lidocaine Transdermal Patch Brand Name(s): Absorbine Jr?? [...] or years after a shingles infection). Nonprescription (nxpz-vrd-czvmldd) lidocaine (Absorbine Jr, Aspercreme, Lidoca re, Salonpas, [...] or doctor for a copy of the research program coordinator's information for the patient. Are there [...] if you have or have ever had sftvqbu-2-mnuhippgy dehydrogenase (G-6PD) deficiency (an inherited blood disorder), [...] of all of the prescription and nonprescription (iius-wht-wjhniet) medicines you are taking, as well as [...] or pharmacist about specific clinical use. The [employer] represents that the information provided hereunder was formulated with a reasonable standard of care, and in conformity with professional standards in the field. The [employer] makes no representations or warranties, express or implied, including, but not limited to, any implied warranty of merchantability and/or fitness for a particular purpose, with respect to such information and specifically disclaims all such warranties. Users are advised that decisions regarding drug therapy are complex medical decisions requiring the independent, informed decision of an appropriate health medicare contact specialist, and the information is provided for informational purposes only. The entire monograph for a drug should be reviewed for a thorough understanding of the drug's actions, uses and side effects. The [employer] does not endorse or recommend the use of any drug.The information is not a substitute for medical care. AHFS?? Patient Medication Information?. ?? Copyright, 2023. The [employer]??, [address], [address], [place], [place]. All Rights Reserved. Duplication for commercial use must be authorized by [facility]. Selected Revisions: March 18, 2021. AHFS?? Patient Medication Information?. ?? Copyright2024 * Tyler Easley - Barbara Martins - 03/06/2025 9:41 AM EDT Images from the original note were not included. [id number] Cefazolin Injection Brand Name(s): Ancef?, Kefzol?; also [...] of all of the prescription and nonprescription (aigz-xmd-ibyyiri) medicines you are taking, as well as [...] or pharmacist about specific clinical use. The [employer] represents that the information provided hereunder was formulated with a reasonable standard of care, and in conformity with professional standards in the field. The [employer] makes no representations or warranties, express or implied, including, but not limited to, any implied warranty of merchantability and/or fitness for a particular purpose, with respect to such information and specifically disclaims all such warranties. Users are advised that decisions regarding drug therapy are complex medical decisions requiring the independent, informed decision of an appropriate health medicare contact specialist, and the information is provided for informational purposes only. The entire monograph for a drug should be reviewed for a thorough understanding of the drug's actions, uses and side effects. The [employer] does not endorse or recommend the use of any drug.The information is not a substitute for medical care. AHFS?? Patient Medication Information?. ?? Copyright, 2023. The [employer]ists??, [address], [address], [place], [place]. All Rights Reserved. Duplication for commercial use must be authorized by [facility]. Selected Revisions: March 23, 2024. AHFS?? Patient [...] present and normoactive x 4 quadrants SKIN: [place], warm, and dry. No rash, sores, or [...] leaflet repair and De Lucas procedure at [facility] ([place]) - OSH CT imaging uploaded and reviewed - 02/25: BCx (+) staph aureus - Underwent chest washout, wound debridement, removal of sternal plates, and wound vac placement on02/[address] Daniel (silver sponge so no WV change til Wednesday) - TTE shows LVEF 59%, mod dilated RV with nl RV fx. TV leaflets thickened. 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 There appears to be restricted [...] W[place] changes, continue home Suboxone Cardiothoracic Surgery [phone] * Progress Notes - Lise Christine RN - 03/05/2025 3:07 PM EDT Case Management Discharge Note Alex Amaya 34 y.o. male CSN: [id number] Admission: 02/25/2025 2:42 AM Primary Problem: Sternal wound dehiscence, initial encounter Primary Shoeshiner: Primary Caregiver: Self Assistance Available at Discharge: Availability of Care Givers (#Hours): 24 hours, No assistance needed Family/Shoeshiner(s) Willingness Assessed to care for patient at [...] days Follow-up: Francisco [facility] [address] [facility] [address] Go on 04/26/2025 Your appointment time is 2:10pm Please arrive 15 minutes early and bring bottles of medication [facility] [address] [place] [address] Go on 03/12/2025 03/12/25 at 11:30 AM - Infusion Center for PICC and labs Wound Vac Changes MWF - same location, but in Physical Therapy Department - First Appointment 03/14/25 9:00 AM [facility] [address] [place] [address] Follow up for IV antibiotics and supplies Discharge Transportation: Transportation Anticipated: family or friend will provide Transportation Home at Discharge: Family/Friend will Provide Follow Up Transport: Transportation Needed to Follow up Appoinments: Family/Friend will Provide Additional Comments: Per primary team patient is medically ready for discharge. [facility] will be delivered to bedside. Wound vac ordered through [facility] - will be delivered to bedside. Patient will follow up in Cardiovascular Clinic for first two wound vac changes, then will go to [facility] starting March 14. Patient also scheduled to go to [facility] [place] for PICC care and labs. Family will assist and transport. Update: [facility] unable to deliver IV abx today. He [...] Roper RN Authorized by: Sherlyn Daniel MD [place] Protocol: Verbal consent obtained?: Yes Written consent [...] vein Patient position: Flat Catheter Lot #: [id number] Catheter research program coordinator: Compendium Catheter placed: Single lumen Catheter size: 4 [...] present and normoactive x 4 quadrants SKIN: [place], warm, and dry. No rash, sores, or [...] leaflet repair and De Lucas procedure at [facility]) - OSH CT imaging uploaded and reviewed - 02/25: BCx (+) staph aureus - Underwent chest washout, wound debridement, removal of sternal plates, and wound vac placement on02/[address] Daniel (silver sponge so no WV change til Wednesday) - TTE shows LVEF 59%, mod dilated RV with nl RV fx. TV leaflets thickened. 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 There appears to be restricted [...] present and normoactive x 4 quadrants SKIN: [place], warm, and dry. No rash, sores, or [...] leaflet repair and De Lucas procedure at [facility] ([place]) - OSH CT imaging uploaded and reviewed - 02/25: BCx (+) staph aureus - Underwent chest washout, wound debridement, removal of sternal plates, and wound vac placement on02/[address] Daniel (silver sponge so no WV change til Wednesday) - TTE shows LVEF 59%, mod dilated RV with nl RV fx. TV leaflets thickened. 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 There appears to be restricted [...] to order single lumen PICC. Cardiothoracic Surgery [phone] * Care Plan - Yared Cartwright RN [...] leaflet repair and De Lucas procedure at [facility] - OSH CT imaging uploaded and reviewed - 02/25: BCx (+) staph aureus - Underwent chest washout, wound debridement, removal of sternal plates, and wound vac placement on02/[address] Daniel (silver sponge so no WV change til Wednesday) - TTE shows LVEF 59%, mod dilated RV with nl RV fx. TV leaflets thickened. 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 There appears to be restricted [...] Post-Operative Pain - [facility] Obesity (POA) - BMI 33.47 - Complicates care Plan: - Continue cefazolin per ID - Continue wound vac - Per ID, if BC from 02/27 & 03/01 remain negative, okay to order single lumen PICC. Cardiothoracic Surgery [phone] * Significant Event - Keny Chin MD [...] 0930AM WEEK 6 FOLLOWUP: 04/10/2025, 0900AM at [address] [place] [address] (Select Option 3 for IV Antibiotic / PICC line related issues) All questions regarding outpatient parenteral antimicrobials after discharge should be directed to the OPAT nurse navigator at (Select Option 3 for IV Antibiotics/PICC Issues) between 8am-5pm. After 5 pm, or during weekends/[place] holidays, please call the paging drying equipment operator at to reach the on-call ID [...] mg, Oral, q4h PRN, Zacher, Kelsie A, OFFLINE EDITOR Buprenorphine HCl-Naloxone HCl (Suboxone) 8-2 MG per SL film 8 mg, 8 mg, Sublingual, BID, Alejandro Sandoval PA, 8 mg at 03/02/25 0924 calcium carbonate (Tums) chewable tablet 500 mg, 500 mg, Oral, q6h PRN, Zacher, Kelsie A, OFFLINE EDITOR ceFAZolin (Ancef) injection 2 g, 2 g, Intravenous, q8h, Zariley, Kelsie A, OFFLINE EDITOR, 2 g at 03/02/2523 docusate sodium (Colace) capsule 100 mg, 100 mg, Oral, BID, Zacher, Kelsie A, OFFLINE EDITOR, 100 mg at 03/02/25 0923 heparin (porcine) injection 5,000 Units, 5,000 Units, Subcutaneous, q8h [facility], Maxwell Ocasio MD, 5,000 Units at 03/02/25 0515 HYDROmorphone (Dilaudid) tablet 2 mg, 2 mg, Oral, q6h PRN, Zacher, Kelsie A, OFFLINE EDITOR ibuprofen tablet 600 mg, 600 mg, Oral, q6h PRN, Zacher, Kelsie A, OFFLINE EDITOR lidocaine (Lidoderm) 5 % patch 1 patch, 1 patch, Apply externally, q24h, Zariley, Kelsie A, OFFLINE EDITOR, 1 patch at 03/01/252111 methocarbamol (Robaxin) tablet 750 mg, 750 mg, Oral, 4x daily, Kelsie Carty APRN, 750 mg at 03/02/25 0923 senna (Senokot) tablet 17.2 mg, 17.2 mg, Oral, Nightly, Kelsie Carty OFFLINE EDITOR, 17.2 mg at 02/27/25 2139 simethicone (Mylicon) [...] mL, 10 mL, Intravenous, PRN, Kelsie Carty, OFFLINE EDITOR O: Visit Vitals BP 130/79 (BP Location: [...] regurgitation. Tricuspid Valve: The leaflets appear thickened. 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 There appears to be restricted [...] is no recent study available for direct avsx-dx-whha comparison. 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 Ptalso with h/o TV IE in 2019 for which he had TV leaflet repair and De Lucas procedure at [facility] Pt was incarcerated at the time, and post-discharge developed chronic drainage from cephalad portion of sternal wound. Pt reportedly had I&Ds at alf medical facility. Wound subsequentlyhas open and closed several times since 2021, including in December 2024. On/around 02/19/2025, wound again ruptured with large amount of purulent drainage, which pt described as largest amount of renata inashaneka in several years. Pt [facility] at [facility] 02/24/2025. 02/24/2025 CT showed 2.4x2.1x2.6cm abscess [...] leaflet repair and De Lucas procedure at [facility] SUBSTANCE ABUSE: Illicit: H/o IVDA, polysubstance abuse. [...] abx therapy. For now, while inpatient at [facility]: Continue Cefazolin 2g IV q8h as primary [...] appointment in order to complete registration paperwork.) [facility] (Infectious Diseases Clinic) [address] [place] [id number] DIVISION ENGINEER: . FAX: [facility] [...] arms away from your body. * [facility] - Donna Rosario RN - 03/02/2025 10:43 AM EDT Images from the original note were not included. [id number] Understanding Wound Separation After Surgery (Wound Dehiscence) [...] of the opening. How to say it [id number]-[id number] How wound dehiscence happens A wound can [...] wound ?? Stitches that pull apart ?? Faber that fall out Last Reviewed Date: 2024 00:00:00 ?? [id number] [employer]. All rights reserved. This information is not intended as a substitute for professional medical care. Always follow your healthcare professional's instructions. * Consults - Asia Neumann RD - 03/02/2025 9:48 AM EDT Adult Nutrition Evaluation Note Alex Amaya 34 y.o. male CSN: [id number] Room/Bed 119/119A Nutrition evaluation type: assessment Reason for evaluation: [facility] course: 34 yo male transferred to from [facility] for evaluation of chronic sternotomy wound with chest abscess. He states that he had to have several incision and drainages of the superior aspect of his sternotomy scar that occurred in the medical facility at the alf that he was in due to drainage with the last in 2021. He reports that the area has chronically healed and opened up multipletimes, most recently about 3 months ago. Past medical/ surgical history: IVDU on suboxone, infectious endocarditis requiring tricuspid valverepair in [place] in 2019. Medical History[1] Surgical History[2] Social [...] (Room air) O2 Delivery Method: Nasal cannula [place] Coma Scale Score: 15 Jhony Scale Score: [...] (260 lb 12.9 oz) BMI (Calculated): 33.47 [place] Body Weight (kg): 86.4 Percent [place] Body Weight: 137 Adjusted Body Weight (kg): 94.4 Estimated Needs: Metabolic Cart Study Results: Current Nutrition Intake: Diet Supplements: None Diet Order: Adult Diet Diet Texture: Regular Percent Meals Eaten (%): 100% x 3 meals Diet Experience and Nutrition History: Diet Education Provided: Will monitor Pertinent home medications: Reviewed Restorationist needs: Nutrition Focused Physical Exam: Physical exam [...] with nl RV fx. TV leaflets thickened. 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 There appears to be restricted motion/malcoaptation involving the septal leaflet. There is no tricuspid valve vegetation. There is severe tricuspid regurgitation. There is systolic flow reversal of the hepatic veins consistent with significant tricuspid valve regurgitation. OUD (POA) Post-Operative Pain - continue home Suboxone - [facility] Obesity (POA) - BMI 33.88 - complicates all aspects of care Plan: - Continue IV abx per ID - Continue wound vac - Will need PICC Cardiothoracic Surgery [phone] * Progress Notes - Estefania Salguero - 03/01/2025 8:08 AM EDT Case Management Adult Progress Note Alex Amaya 34 y.o. male CSN: [id number] Admission: 02/25/2025 2:42 AM Primary Problem: Sternal [...] IV Access: pending Patient Specific Outpatient Circumstances: [address] [place] [address] Family Support: Extended Emergency Contact Information Primary Emergency Contact: Mary Lemus Mobile Relation: Significant Other Preferred language: Icelandic Wall Taper Helper needed? No Contact information: Alex Amaya -[phone] Afua Lemus (pt's S.O. -will administer IV abx) - [phone] Outpatient services (including home infusion, home health, [...] PICC care/labs;patient is requesting to go to [facility] close to home . After this [...] via secure chat or staff messaging in [employer]. This note is not the final recommendations [...] mg, Oral, q6h PRN, August Cartya A, OFFLINE EDITOR ceFAZolin (Ancef) injection 2 g, 2 g, Intravenous, q8h, Kelsie Carty OFFLINE EDITOR, 2 g at 02/28/25 0908 docusate sodium (Colace) capsule 100 mg, 100 mg, Oral, BID, Kelsie Carty, OFFLINE EDITOR, 100 mg at 02/27/25 2139 heparin (porcine) [...] mL, 10 mL, Intravenous, PRN, Kelsie Carty OFFLINE EDITOR O: Visit Vitals BP 134/77 (BP Location: [...] regurgitation. Tricuspid Valve: The leaflets appear thickened. 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 There appears to be restricted [...] is no recent study available for direct jfzf-en-qywf comparison. 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 Ptalso with h/o TV IE in 2019 for which he had TV leaflet repair and De Lucas procedure at [facility]). Pt was incarcerated at the time, and post-discharge developed chronic drainage from cephalad portion of sternal wound. Pt reportedly had I&Ds at [facility]. Wound subsequentlyhas open and closed several times since 2021, including in December 2024. On/around 02/19/2025, wound again ruptured with large amount of purulent drainage, which pt described as largest amount of renata inage in several years. Pt seen at [facility] 02/24/2025. 02/24/2025 CT showed 2.4x2.1x2.6cm abscess [...] leaflet repair and De Lucas procedure at [facility] SUBSTANCE ABUSE: Illicit: H/o IVDA, polysubstance abuse. [...] abx therapy. For now, while inpatient at [facility]: Continue Cefazolin 2g IV q8h as primary [...] with nl RV fx. TV leaflets thickened. 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 There appears to be restricted motion/malcoaptation involving the septal leaflet. There is no tricuspid valve vegetation. There is severe tricuspid regurgitation. There is systolic flow reversal of the hepatic veins consistent with significant tricuspid valve regurgitation. OUD (POA) Post-Operative Pain - [facility] Obesity (POA) - BMI 33.88 - complicates all aspects of care Plan: - continue IV abx per ID - continue wound vac Cardiothoracic Surgery [id number] * Care Plan - Nasra Jasmine RN [...] needed in the future. Mayelin Caruso PharmD, [facility] Clinical Pharmacist - Cardiology Contact via secure [...] of HCV workup. Branden Elizalde, Pharm D. [facility] via secure chat [...] injection 5,000 Units, 5,000 Units, Subcutaneous, q8h [facility] Jeffrey A, MD, 5,000 Units at 02/27/25 [...] mg, 750 mg, Oral, 4x daily, Alejandro Sadnoval PA, 750 mg at 02/27/25 0945 piperacillin-tazobactam [...] regurgitation. Tricuspid Valve: The leaflets appear thickened. 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 There appears to be restricted [...] is no recent study available for direct ohda-uq-edly comparison. 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 Ptalso with h/o TV IE in 2019 for which he had TV leaflet repair and De Lucas procedure at [facility] Pt was incarcerated at the time, and post-discharge developed chronic drainage from cephalad portion of sternal wound. Pt reportedly had I&Ds at [facility]. Wound subsequentlyhas open and closed several times since 2021, including in December 2024. On/around 02/19/2025, wound again ruptured with large amount of purulent drainage, which pt described as largest amount of renata inage in several years. Pt seen at [facility] 02/24/2025. 02/24/2025 CT showed 2.4x2.1x2.6cm abscess [...] leaflet repair and De Lucas procedure at [facility] SUBSTANCE ABUSE: Illicit: H/o IVDA, polysubstance abuse. [...] abx therapy. For now, while inpatient at [facility]: D/c Vanco and Zosyn Start Cefazolin 2g [...] Note Alex Amaya 34 y.o. male CSN: [id number] Admission: 02/25/2025 2:42 AM Primary Problem: Sternal wound dehiscence, initial encounter PCP: Pcp, No Emergency Contact: Extended Emergency Contact Information Primary Emergency Contact: WendylioMary Mobile Relation: Significant Other Preferred language: Icelandic Wall Taper Helper needed? No Insurance: Primary Visit Coverage Payer Plan Sponsor Code Group Number Group Name AETNA AETNA OPEN CHOICE ACCESS [id number] Primary Visit Coverage Subscriber Subscriber ID Subscriber Name Subscriber SSN Subscriber Address [id number] Alex Amaya Timothy [id number] [address] [place] [address] Secondary Visit Coverage Payer Plan Sponsor Code Group Number Group Name WELL[employer] MEDICAID WELLCARE MEDICAID Secondary Visit Coverage Subscriber Subscriber ID Subscriber Name Subscriber SSN Subscriber Address [id number] Alex Amaya [id number] [address] [place] [address] Patient information: Primary Caregiver: Self Accompanied by/Relationship: Mary Lemus ([phone]) Support System: Immediate family Daily Living Activities: Functional Status: Independent Living Arrangements: Spouse/Significant other, Children (5 y.o. child) Type of Residence: Private residence, Single Level (1-2 SACHIN) [address] [place] [id number] Current DME: Equipment Currently Used at Home: [...] Dialysis Services: N/A Living Will/Advance Directive/Power of Kitchen Helper /Guardian: Have you reviewed your Advance Directive [...] pt accompanied by significant other Mary Lemus ([phone]). Pt does not have a POA/LW/AD. Pt [...] DC. Pt has never worked with an [facility] and has never stayed anywhere overnight for physical rehab. Pt prefers [facility] in [place] as his pharmacy. Pt confirms insurance listed [...] sounds present and normoactivex 4 quadrants SKIN: [place], warm, and dry. No rash, sores, or [...] Post-Operative Pain - continue home Suboxone - [facility] Obesity (POA) - BMI 32 - complicates all aspects of care Plan: - continue IV abx per ID - continue wound vac - TTE completed this morning, read pending Cardiothoracic Surgery [phone] * Discharge Instr - Other Orders - Donna Rosario RN - 02/27/2025 10:28 AM EDT Please arrive 30 minutes early for your appointment with Dr. Daniel Prior to your appointment, go to the radiology department on the 1st floor of the [facility] near [facility] for a chest x-ray. Then [...] your incisions. Do NOT lift, push or heat treat puller 5 pounds for six weeks. Do [...] Donna Rosario CT Surgery Nurse Navigator at [phone] Wednesday through Wednesday 7am- 3:30pm [facility] [phone] after 3:30 pm, weekends and holidays - ask for the CT surgeon nutrition representative. * Progress Notes - Alejandro Sandoval PA [...] sounds present and normoactivex 4 quadrants SKIN: [place], warm, and dry. No rash, sores, or [...] Post-Operative Pain - continue home Suboxone - [facility] Obesity (POA) - BMI 32 - complicates all aspects of care Plan: - continue IV abx per ID - continue wound vac Cardiothoracic Surgery [id number] * Anesthesia PACU Signout - Umberto Davis DO - 02/26/2025 12:25 PM EDT Patient: Alex Amyaa Anesthesia Type: general Vitals Value Taken Time [...] CORONARY ARTERY BYPASS GRAFTING: Date: 02/26/2025 Location: [facility] OR Name: Alex Amaya : 1990, Pre-operative [...] suboxone, infectious endocarditisrequiring tricuspid valve repair in [place] in 2019. He states that he had to have several incision and drainages of the superior aspect of his sternotomy scar that occurred in the medical facility at the alf that he was in due to drainage [...] midnight. Pacheco Ocasio MD Cardiothoracic Surgery Pager: [phone] * Significant Event - Alejandro Sandoval PA - 02/25/2025 1:35 PM EDT Patient seen and evaluated with Dr Daniel. Will go to OR tomorrow for chest washout and removal of sternal plates with Dr Daniel. Pre-op orders placed. Consent obtained and placed in paper chart. NPOp AR. CT Surgery [phone] * Consults - Kinga Mc MD - [...] valve repair with a DeVega Procedure at [facility] (2019), multiple I&Ds of superior sternotomy site most recent in 2021, and chronic drainage of sternotomy (last episode 3 months prior) who presents as a transfer from [facility] with new and worsened superior sternotomy drainage. MDET team were consulted to provide recommendations on therapy and management. Mr. Amyaa first noted repeat drainage on 02/19/25, associated with fevers, chills, and swelling. He went to a local ED and was discharged. Given no change he then went to [facility]. CT Chest showed a fluid collection anterior to the sternum and was transferred to for ID follow up and CT surgery evaluation. Upon arrival to on 02/25 blood cultures were taken and have NGTD. Wound cultures have a GS positive for GPC in pairs and clusters. He was started on Vancomycin and Zosyn, [facility] Additional pertinent admission workup includes Hep C antibodypositivity, HIV non-reactive, CRP of 282.5, and an ESR of 65. When spoken to Mr. Amaya endorses persistent drainage from his sternal wound. In the room therewas considerable drainage on his dressing, which ID team changed. He endorsed the above history anddescribes following with a railway signalling engineer Dr. Park. Social: Was recently incarcerated until [...] Value Units Date/Time Blood Culture (Aerobic/Anaerobet Set) [[id number]] Collected: 02/25/25317 Order Status: Completed Specimen: Blood, Venous Updated: 02/25/25606 Culture Culture in lab Blood Culture (Aerobic/Anaerobet Set) [[id number]] Collected: 02/25/25317 Order Status: Completed Specimen: Blood, Venous Updated: 02/25/25 0601 Culture Culture in lab Wound Culture and Gram Stain [[id number]] (Abnormal) Collected: 02/25/25445 Order Status: Completed Specimen: Swab from Cutaneous skin (specify site) Updated: 02/25/25 05 Gram Stain Result Numerous Polymorphonuclear leukocytes Numerous Gram positive cocci in pairs Numerous Gram positive cocci in clusters Antibiotics: Vancomycin 02/25-P Zosyn 02/25-P Assessment: Alex Amaya is a 34 y.o. male with history of IVDU on suboxone, nTVie s/p valve repair with a DeVega Procedure at [facility] (2019), multiple I&Ds of superior sternotomy site most recent in 2021, and chronic drainage of sternotomy (last episode 3 months prior) who presents as a transfer from [facility] with new and worsened superior sternotomy drainage. MDET team were consulted to provide recommendations on therapy and management. Cultures have not grown any specific organisms at this time, however GS with GPC in pairs and clusters. Agree with washout tomorrow and would obtain cultures. At this time can continue antibiotic therapy. # Hx of nTV ie s/p DeVega Procedure at [facility] (2019) # Sternotomy Site SSTI # Chronic [...] ID will follow. Sherman Gonzáles MD Pager: [phone] I spent greater than 110 minutes performing the following components of the encounter (on the day of the encounter): reviewing history, examining the patient, reviewing imaging and/or labs, echo, ECGand/or other imaging results, counseling the patient and family/caregiver, communicating with otherhealth respiratory care assistant. The patient is receiving directed antibiotic therapy which requires monitoring of daily labs for toxicities. Greater than 50% of the time spent on the encounter was [id number] providing direct patient care, counseling for the [...] recommendations as appropriate. Thank you, Ru TrejoD, [facility] Clinical Staff Pharmacist * H&P - [...] suboxone, infectious endocarditisrequiring tricuspid valve repair in [place] in 2019. He states that he had to have several incision and drainages of the superior aspect of his sternotomy scar that occurred in the medical facility at the alf that he was in due to drainage [...] and got worse so he went to [facility] where he was found to have [...] Tobacco Use: Medium Risk (01/09/2025) Received from [employer] Patient History Smoking Tobacco Use: Former Smokeless [...] suboxone, infectious endocarditisrequiring tricuspid valve repair in [place] in 2019. He states that he had to have several incision and drainages of the superior aspect of his sternotomy scar that occurred in the medical facility at the alf that he was in due to drainage [...] and got worse so he went to [facility] where he was found to have [...] infectious endocarditis requiring open heart surgery at [facility] (2019) c/b multiple episodes of medial sternotomy site infection requiring debridement that occurred at a alf facility (most recent ~2021) who presents with a draining wound at the superior portion of his sternotomy scar with concern for abscess. He states that when he was first postop from his original surgery, he had to have several incision and drainages of the superior aspect of his sternotomy scar that occurred in the medical facility at the alf that he was in. He had not [...] and got worse so he went to [facility] where he was found to have the chest abscess. He was transferred to [facility] for evaluation with CT surgery and ID History provided by: Patient and medical records bottle packer used: No Patient History Medical History[1] Surgical [...] collection [JG] 0314 Reviewed of records from [facility], given 1 g ceftriaxone at 19:47. [...] None Disposition Admit Admitting/Attending Physician: SHERLYN DANIEL [[id number]] Provider Care Team: CVT CARDIAC SURGERY [[id number]] [...] Description 04/10/2025 8:30 AM EDT Office Visit [address] [address] Keny Chin MD [address] [place] [phone] Pending Results Name Type Priority Associated Diagnoses [...] Roper RN Authorized by: Sherlyn Daniel MD [place] Protocol: Verbal consent obtained?: Yes Written consent [...] vein Patient position: Flat Catheter Lot #: [id number] Catheter research program coordinator: Bard Catheter placed: Single lumen Catheter [...] LAB HEMATOLOGY METHOD 03/03/2025 3:14 AM EDT [facility] Platelet Estimate Platelet smear estimate consistent with automated count LAB HEMATOLOGY METHOD 03/03/2025 3:14 AM EDT [facility] Blood Venous blood specimen / Unknown Venipuncture / Unknown 03/03/2025 2:11 AM EDT 03/03/2025 2:25 AM EDT us Kelsie Carty APRN LAB BLOOD ORDERABLES Final R esult [facility] [address] [place] [address] * (ABNORMAL) Manual Differential (03/03/2025 2:11 AM EDT) Blasts % 0 % LAB HEMATOLOGY METHOD 03/03/2025 3:14 AM EDT [facility] Promyelocytes % 0 % LAB HEMATOLOGY METHOD 03/03/2025 3:14 AM EDT [facility] Myelocytes % 2 % LAB HEMATOLOGY METHOD 03/03/2025 3:14 AM EDT [facility] Metamyelocytes % 3 % LAB HEMATOLOGY METHOD 03/03/2025 3:14 AM EDT [facility] Neutrophils % 75 % LAB HEMATOLOGY METHOD 03/03/2025 3:14 AM EDT [facility] Lymphocytes % 14 % LAB HEMATOLOGY METHOD 03/03/2025 3:14 AM EDT [facility] Reactive Lymphocytes % 0 % LAB HEMATOLOGY METHOD 03/03/2025 3:14 AM EDT [facility] Monocytes % 3 % LAB HEMATOLOGY METHOD 03/03/2025 3:14 AM EDT [facility] Eosinophils % 3 % LAB HEMATOLOGY METHOD 03/03/2025 3:14 AM EDT [facility] Basophils % 0 % LAB HEMATOLOGY METHOD 03/03/2025 3:14 AM EDT [facility] Blasts Absolute 0.00 10*3/UL LAB HEMATOLOGY METHOD 03/03/2025 3:14 AM EDT [facility] Promyelocytes Absolute 0.00 10*3/uL LAB HEMATOLOGY METHOD 03/03/2025 3:14 AM EDT [facility] Myelocytes Absolute 0.21 10*3/uL LAB HEMATOLOGY METHOD 03/03/2025 3:14 AM EDT [facility] Metamyelocytes Absolute 0.31 10*3/uL LAB HEMATOLOGY METHOD 03/03/2025 3:14 AM EDT [facility] Neutrophils Absolute 7.72(H) 1.60 - 6.10 10*3/uL LAB HEMATOLOGY METHOD 03/03/2025 3:14 AM EDT [facility] Lymphocytes Absolute 1.44 1.20 - 3.90 10*3/uL LAB HEMATOLOGY METHOD 03/03/2025 3:14 AM EDT [facility] Reactive Lymphocytes Absolute 0.00 10*3/uL LAB HEMATOLOGY METHOD 03/03/2025 3:14 AM EDT [facility] Monocytes Absolute 0.31 0.30 - 0.90 10*3/uL LAB HEMATOLOGY METHOD 03/03/2025 3:14 AM EDT [facility] Eosinophils Absolute 0.31 0.00 - 0.50 10*3/uL LAB HEMATOLOGY METHOD 03/03/2025 3:14 AM EDT [facility] Basophils Absolute 0.00 0.00 - 0.10 10*3/uL LAB HEMATOLOGY METHOD 03/03/2025 3:14 AM EDT [facility] Blood Venous blood specimen / Unknown Venipuncture / Unknown 03/03/2025 2:11 AM EDT 03/03/2025 2:25 AM EDT us Kelsie Carty APRN LAB BLOOD ORDERABLES Final R esult [facility] [address] [place] [address] * (ABNORMAL) Hepatic function panel (03/03/2025 2:11 AM EDT) Conjugated Bilirubin, Plasma <0.2 <=0.3 mg/dL 03/03/2025 2:55 AM EDT [facility] Comment:Hemolyzed, result ma y be falsely decreased. Alkaline Phosphatase, Plasma 99 40 - 115 U/L 03/03/2025 2:55 AM EDT [facility] Total Bilirubin, Plasma 0.3 0.2 - 1.1 mg/dL 03/03/2025 2:55 AM EDT [facility] Albumin, Plasma 3.3(L) 3.5 - 5.2 g/dL 03/03/2025 2:55 AM EDT [facility] Total Protein 7.9 6.3 - 7.9 g/dL 03/03/2025 2:55 AM EDT [facility] ALT, Plasma 36 10 - 50 U/L 03/03/2025 2:55 AM EDT [facility] AST, Plasma 46 10 - 50 U/L 03/03/2025 2:55 AM EDT [facility] Comment:Hemolyzed, result ma y be falsely increased. Blood Venous blood specimen / Unknown Venipuncture / Unknown 03/03/2025 2:11 AM EDT 03/03/2025 2:23 AM EDT Kelsie Carty APRN LAB BLOOD ORDERABLES Final R esult Performing Organization Address City/[facility]/ZIP Co de Phone Number [facility] [address] [place] [address] * Magnesium, Plasma (03/03/2025 2:11 AM EDT) Magnesium, Plasma 2.2 1.9 - 2.4 mg/dL 03/03/2025 2:55 AM EDT [facility] Blood Venous blood specimen / Unknown Venipuncture / Unknown 03/03/2025 2:11 AM EDT 03/03/2025 2:23 AM EDT Kelsie Carty OFFLINE EDITOR LAB BLOOD ORDERABLES Final R esult [facility] [address] [place] [address] * CBC and Differential (03/03/2025 2:11 AM EDT) WBC Count 10.29 3.70 - 10.30 10*3/uL LAB HEMATOLOGY METHOD 03/03/2025 3:15 AM EDT [facility] RBC Count 5.48 4.60 - 6.10 10*6/uL LAB HEMATOLOGY METHOD 03/03/2025 3:15 AM EDT [facility] HGB 15.6 13.7 - 17.5 g/dL LAB HEMATOLOGY METHOD 03/03/2025 3:15 AM EDT [facility] HCT 47.6 40.0 - 51.0 % LAB HEMATOLOGY METHOD 03/03/2025 3:15 AM EDT [facility] Platelet Count 329 155 - 369 10*3/uL LAB HEMATOLOGY METHOD 03/03/2025 3:15 AM EDT [facility] MCV 87 79 - 98 fL LAB HEMATOLOGY METHOD 03/03/2025 3:15 AM EDT [facility] MCH 28.5 26.0 - 32.0 pg LAB HEMATOLOGY METHOD 03/03/2025 3:15 AM EDT [facility] MCHC 32.8 30.7 - 35.5 g/dL LAB HEMATOLOGY METHOD 03/03/2025 3:15 AM EDT [facility] RDW 12.9 11.5 - 14.5 % LAB HEMATOLOGY METHOD 03/03/2025 3:15 AM EDT [facility] MPV 9.1 8.8 - 12.5 fL LAB HEMATOLOGY METHOD 03/03/2025 3:15 AM EDT [facility] nRBC 0.0 <=0.0 per 100 WBCs LAB HEMATOLOGY METHOD 03/03/2025 3:15 AM EDT [facility] Differential Type Manual LAB HEMATOLOGY METHOD 03/03/2025 3:15 AM EDT [facility] Blood Venous blood specimen / Unknown Venipuncture / Unknown 03/03/2025 2:11 AM EDT 03/03/2025 2:25 AM EDT Narrative [facility] - 03/03/2025 3:15 AM EDT Therapeutic [...] ORDERABLES Final R esult Performing Organization Address City/[facility] [place] [address] * Blood Culture (Aerobic/Anaerobet Set) (03/03/2025 2:11 AM EDT) Culture No growth at day 5 GEENA 03/08/2025 4:02 AM EDT [facility] Blood Structure of antecubital vein / Unknown Venipuncture / Unknown 03/03/2025 2:11 AM EDT 03/03/2025 3:04 AM EDT Narrative [facility] - 03/08/2025 4:02 AM EDT Low blood volume submitted, results may be compromised Kelsie Carty APRN LAB MICROBIOLOGY - GENERAL O RDERABLES Final Result Performing Organization Address City/[facility]/ZIP Co de Phone Number [facility] [address] [place] [address] * Blood Culture (Aerobic/Anaerobet Set) (03/03/2025 2:11 AM EDT) Culture No growth at day 5 GEENA 03/08/2025 4:02 AM EDT [facility] Blood Venous blood specimen / Unknown Venipuncture / Unknown 03/03/2025 2:11 AM EDT 03/03/2025 3:03 AM EDT us Kelsie Carty APRN LAB MICROBIOLOGY - GENERAL O RDERABLES Final Result [facility] [address] [place] [address] * (ABNORMAL) CBC W/O Differential (03/01/2025 3:55 AM EDT) WBC Count 7.81 3.70 - 10.30 10*3/uL LAB HEMATOLOGY METHOD 03/01/2025 4:12 AM EDT [facility] RBC Count 4.51(L) 4.60 - 6.10 10*6/uL LAB HEMATOLOGY METHOD 03/01/2025 4:12 AM EDT [facility] HGB 12.8(L) 13.7 - 17.5 g/dL LAB HEMATOLOGY METHOD 03/01/2025 4:12 AM EDT [facility] HCT 40.5 40.0 - 51.0 % LAB HEMATOLOGY METHOD 03/01/2025 4:12 AM EDT [facility] Platelet Count 292 155 - 369 10*3/uL LAB HEMATOLOGY METHOD 03/01/2025 4:12 AM EDT [facility] MCV 90 79 - 98 fL LAB HEMATOLOGY METHOD 03/01/2025 4:12 AM EDT [facility] MCH 28.4 26.0 - 32.0 pg LAB HEMATOLOGY METHOD 03/01/2025 4:12 AM EDT [facility] MCHC 31.6 30.7 - 35.5 g/dL LAB HEMATOLOGY METHOD 03/01/2025 4:12 AM EDT [facility] RDW 13.0 11.5 - 14.5 % LAB HEMATOLOGY METHOD 03/01/2025 4:12 AM EDT [facility] MPV 9.5 8.8 - 12.5 fL LAB HEMATOLOGY METHOD 03/01/2025 4:12 AM EDT [facility] nRBC 0.0 <=0.0 per 100 WBCs LAB HEMATOLOGY METHOD 03/01/2025 4:12 AM EDT [facility] Blood Venous blood specimen / Unknown Venipuncture / Unknown 03/01/2025 3:55 AM EDT 03/01/2025 4:04 AM EDT us Catalina Cuba MD LAB BLOOD ORDERABLES Final Result [facility] [address] [place] [address] * (ABNORMAL) Basic metabolic panel (03/01/2025 3:55 AM EDT) Glucose, Plasma 94 74 - 99 mg/dL 03/01/2025 4:37 AM EDT [facility] BUN, Plasma 14 7 - 21 mg/dL 03/01/2025 4:37 AM EDT [facility] Creatinine, Plasma 0.92 0.70 - 1.20 mg/dL 03/01/2025 4:37 AM EDT [facility] BUN/Creatinine Ratio 15 03/01/2025 4:37 AM EDT [facility] Sodium, Plasma 140 136 - 145 mmol/L 03/01/2025 4:37 AM EDT [facility] Potassium, Plasma 4.4 3.6 - 4.9 mmol/L 03/01/2025 4:37 AM EDT [facility] Chloride, Plasma 105 97 - 107 mmol/L 03/01/2025 4:37 AM EDT [facility] CO2, Plasma 25 22 - 29 mmol/L 03/01/2025 4:37 AM EDT [facility] Anion Gap 10 6 - 16 mmol/L 03/01/2025 4:37 AM EDT [facility] Total Calcium, Plasma 8.8(L) 8.9 - 10.2 mg/dL 03/01/2025 4:37 AM EDT [facility] eGFRcr 110.6 mL/min/1.7 3m*2 03/01/2025 4:37 AM EDT [facility] Comment:Reported eGFRcr in m L/min/1.73m2 is based the CKD-EPI 2020 equation that does not use a race coefficient. Blood Venous blood specimen / Unknown Venipuncture / Unknown 03/01/2025 3:55 AM EDT 03/01/2025 4:04 AM EDT us Catalina Cuba MD LAB BLOOD ORDERABLES Final Result Performing Organization Address [facility] [place] [address] * Blood Culture (Aerobic/Anaerobet Set) (03/01/2025 3:45 AM EDT) Culture No growth at day 5 GEENA 03/06/2025 5:01 AM EDT [facility] Blood Venous blood specimen / Unknown Venipuncture / Unknown 03/01/2025 3:45 AM EDT 03/01/2025 4:45 AM EDT us Kelsie Carty APRN LAB MICROBIOLOGY - GENERAL O RDERABLES Final Result Performing Organization Address [facility] [place] [address] * Blood Culture (Aerobic/Anaerobet Set) (03/01/2025 3:30 AM EDT) Culture No growth at day 5 GEENA 03/06/2025 5:01 AM EDT [facility] Blood Venous blood specimen / Unknown Venipuncture / Unknown 03/01/2025 3:30 AM EDT 03/01/2025 4:45 AM EDT us Kelsie Carty APRN LAB MICROBIOLOGY - GENERAL O RDERABLES Final Result Performing Organization Address City/[facility] [place] [address] * Magnesium (02/28/2025 4:03 AM EDT) Magnesium, Plasma 2.2 1.9 - 2.4 mg/dL 02/28/2025 4:37 AM EDT [facility] Blood Venous blood specimen / Unknown Venipuncture / Unknown 02/28/2025 4:03 AM EDT 02/28/2025 4:10 AM EDT us Sherlyn Daniel MD LAB BLOOD ORDERABLES Final Res ult [facility] [address] [place] [address] * (ABNORMAL) CBC W/O Differential (02/28/2025 4:03 AM EDT) WBC Count 7.50 3.70 - 10.30 10*3/uL LAB HEMATOLOGY METHOD 02/28/2025 4:26 AM EDT [facility] RBC Count 4.59(L) 4.60 - 6.10 10*6/uL LAB HEMATOLOGY METHOD 02/28/2025 4:26 AM EDT [facility] HGB 13.1(L) 13.7 - 17.5 g/dL LAB HEMATOLOGY METHOD 02/28/2025 4:26 AM EDT [facility] HCT 40.6 40.0 - 51.0 % LAB HEMATOLOGY METHOD 02/28/2025 4:26 AM EDT [facility] Platelet Count 252 155 - 369 10*3/uL LAB HEMATOLOGY METHOD 02/28/2025 4:26 AM EDT [facility] MCV 89 79 - 98 fL LAB HEMATOLOGY METHOD 02/28/2025 4:26 AM EDT [facility] MCH 28.5 26.0 - 32.0 pg LAB HEMATOLOGY METHOD 02/28/2025 4:26 AM EDT [facility] MCHC 32.3 30.7 - 35.5 g/dL LAB HEMATOLOGY METHOD 02/28/2025 4:26 AM EDT [facility] RDW 13.2 11.5 - 14.5 % LAB HEMATOLOGY METHOD 02/28/2025 4:26 AM EDT [facility] MPV 9.8 8.8 - 12.5 fL LAB HEMATOLOGY METHOD 02/28/2025 4:26 AM EDT [facility] nRBC 0.0 <=0.0 per 100 WBCs LAB HEMATOLOGY METHOD 02/28/2025 4:26 AM EDT [facility] Blood Venous blood specimen / Unknown Venipuncture / Unknown 02/28/2025 4:03 AM EDT 02/28/2025 4:12 AM EDT Sherlyn Daniel MD LAB BLOOD ORDERABLES Final Res ult [facility] [address] [place] [address] * (ABNORMAL) Basic metabolic panel (02/28/2025 4:03 AM EDT) Glucose, Plasma 110(H) 74 - 99 mg/dL 02/28/2025 4:37 AM EDT [facility] BUN, Plasma 18 7 - 21 mg/dL 02/28/2025 4:37 AM EDT [facility] Creatinine, Plasma 1.15 0.70 - 1.20 mg/dL 02/28/2025 4:37 AM EDT [facility] BUN/Creatinine Ratio 16 02/28/2025 4:37 AM EDT [facility] Sodium, Plasma 136 136 - 145 mmol/L 02/28/2025 4:37 AM EDT [facility] Potassium, Plasma 3.8 3.6 - 4.9 mmol/L 02/28/2025 4:37 AM EDT [facility] Chloride, Plasma 104 97 - 107 mmol/L 02/28/2025 4:37 AM EDT [facility] CO2, Plasma 24 22 - 29 mmol/L 02/28/2025 4:37 AM EDT [facility] Anion Gap 8 6 - 16 mmol/L 02/28/2025 4:37 AM EDT [facility] Total Calcium, Plasma 8.6(L) 8.9 - 10.2 mg/dL 02/28/2025 4:37 AM EDT [facility] eGFRcr 84.6 mL/min/1.7 3m*2 02/28/2025 4:37 AM EDT [facility] Comment:Reported eGFRcr in m L/min/1.73m2 is based the CKD-EPI 2020 equation that does not use a race coefficient. Blood Venous blood specimen / Unknown Venipuncture / Unknown 02/28/2025 4:03 AM EDT 02/28/2025 4:10 AM EDT Sherlyn Daniel MD LAB BLOOD ORDERABLES Final Res ult [facility] [address] [place] [address] * PERIPHERAL IV (SM[employer] LINK) (02/27/2025 6:13 [...] regurgitation. Tricuspid Valve: The leaflets appear thickened. 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 There appears to be restricted [...] is no recent study available for direct [id number] comparison. Left Ventricle Based on the linear [...] stenosis. Tricuspid Valve The leaflets appear thickened. 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 There appears to be restricted [...] is no recent study available for direct [id number] comparison. Wall Scoring Baseline Score Index: 1.00 [...] - 40.0 ug/mL 02/27/2025 11:21 AM EDT [facility] Blood Venous blood specimen / Unknown Venipuncture / Unknown 02/27/2025 10:46 AM EDT 02/27/2025 10:52 AM EDT Narrative [facility] - 02/27/2025 11:21 AM EDT Therapeutic Peak level: 20-40ug/mL Supra-therapeutic Peak level: >40 ug/mL us Alejandro AARON LAB BLOOD ORDERABLES Final R esult [facility] [address] [place] [address] * (ABNORMAL) Lipid panel (02/27/2025 4:33 AM EDT) Cholesterol, Plasma 108 <200 mg/dL 02/27/2025 5:14 AM EDT [facility] Comment: Cholesterol Reference Range (age >17 years): Desirable <200 mg/dL Borderline 200 to 239 mg/dL Undesirable >239 mg/dL HDL 28(L) >=40 mg/dL 02/27/2025 5:14 AM EDT [facility] Comment: HDL Cholesterol Reference Ranges (age >17 years): Female, acceptable > or = 50 mg/dL Male, acceptable > or = 40 mg/dL Triglycerides, Plasma 94 <150 mg/dL 02/27/2025 5:14 AM EDT [facility] Comment: Triglyceride Reference Range (age >17 years): Desirable: <150 mg/dL Borderline high: 150 to 199 mg/dL High: 200 to 499 mg/dL Very high: >499 mg/dL Increased risk of pancreatitis: >1000 mg/dL Cholesterol/HDL Ratio 4 02/27/2025 5:14 AM EDT [facility] LDL, Calculated 62 <100 mg/dL 5:14 AM EDT [facility] Comment: LDL Cholesterol Reference Range [...] 12 hours? No 02/27/2025 5:14 AM EDT [facility] Blood Venous blood specimen / Unknown Venipuncture / Unknown 02/27/2025 4:33 AM EDT 02/27/2025 4:42 AM EDT Alejandro AARON LAB BLOOD ORDERABLES Final R esult Performing Organization Address [facility] Co de Phone Number [facility] [address] [place] [address] * Hemoglobin A1c (02/27/2025 4:33 AM EDT) Hemoglobin A1c 5.4 <5.7 % 02/27/2025 7:06 AM EDT [facility] Blood Venous blood specimen / Unknown Venipuncture / Unknown 02/27/2025 4:33 AM EDT 02/27/2025 4:45 AM EDT Narrative [facility] - 02/27/2025 7:06 AM EDT HA1C Interpretive Data: Diagnosis of Diabetes: Diabetic > or = 6.5% Pre-diabetic 5.7 to 6.4% Non-diabetic < or = 5.6% Glycemic Targets for Type I and Type II Diabetics: Non- Adults <7.0% Adults <6.0% Children and Adolescents <7.5% Source: [employer]. Standards of medical care in diabetes,2017. Diabetes Care.2017:40 (suppl 1):S1-S135. Alejandro AARON LAB BLOOD ORDERABLES Final R esult Performing Organization Address City/[facility] Co de Phone Number [facility] [address] [place] [address] * (ABNORMAL) Basic metabolic panel (02/27/2025 4:33 AM EDT) Glucose, Plasma 128(H) 74 - 99 mg/dL 02/27/2025 5:14 AM EDT [facility] BUN, Plasma 18 7 - 21 mg/dL 02/27/2025 5:14 AM EDT [facility] Creatinine, Plasma 1.01 0.70 - 1.20 mg/dL 02/27/2025 5:14 AM EDT [facility] BUN/Creatinine Ratio 18 02/27/2025 5:14 AM EDT [facility] Sodium, Plasma 135(L) 136 - 145 mmol/L 02/27/2025 5:14 AM EDT [facility] Potassium, Plasma 4.6 3.6 - 4.9 mmol/L 02/27/2025 5:14 AM EDT [facility] Chloride, Plasma 101 97 - 107 mmol/L 02/27/2025 5:14 AM EDT [facility] CO2, Plasma 24 22 - 29 mmol/L 02/27/2025 5:14 AM EDT [facility] Anion Gap 10 6 - 16 mmol/L 02/27/2025 5:14 AM EDT [facility] Total Calcium, Plasma 9.2 8.9 - 10.2 mg/dL 02/27/2025 5:14 AM EDT [facility] eGFRcr 98.8 mL/min/1.7 3m*2 02/27/2025 5:14 AM EDT [facility] Comment:Reported eGFRcr in m L/min/1.73m2 is based the CKD-EPI 2020 equation that does not use a race coefficient. Blood Venous blood specimen / Unknown Venipuncture / Unknown 02/27/2025 4:33 AM EDT 02/27/2025 4:42 AM EDT us Sherlyn Daniel MD LAB BLOOD ORDERABLES Final Res ult [facility] [address] [place] [address] * (ABNORMAL) CBC W/O Differential (02/27/2025 4:33 AM EDT) WBC Count 9.62 3.70 - 10.30 10*3/uL LAB HEMATOLOGY METHOD 02/27/2025 4:53 AM EDT [facility] RBC Count 4.58(L) 4.60 - 6.10 10*6/uL LAB HEMATOLOGY METHOD 02/27/2025 4:53 AM EDT [facility] HGB 13.1(L) 13.7 - 17.5 g/dL LAB HEMATOLOGY METHOD 02/27/2025 4:53 AM EDT [facility] HCT 40.8 40.0 - 51.0 % LAB HEMATOLOGY METHOD 02/27/2025 4:53 AM EDT [facility] Platelet Count 247 155 - 369 10*3/uL LAB HEMATOLOGY METHOD 02/27/2025 4:53 AM EDT [facility] MCV 89 79 - 98 fL LAB HEMATOLOGY METHOD 02/27/2025 4:53 AM EDT [facility] MCH 28.6 26.0 - 32.0 pg LAB HEMATOLOGY METHOD 02/27/2025 4:53 AM EDT [facility] MCHC 32.1 30.7 - 35.5 g/dL LAB HEMATOLOGY METHOD 02/27/2025 4:53 AM EDT [facility] RDW 13.1 11.5 - 14.5 % LAB HEMATOLOGY METHOD 02/27/2025 4:53 AM EDT [facility] MPV 10.4 8.8 - 12.5 fL LAB HEMATOLOGY METHOD 02/27/2025 4:53 AM EDT [facility] nRBC 0.0 <=0.0 per 100 WBCs LAB HEMATOLOGY METHOD 02/27/2025 4:53 AM EDT [facility] Blood Venous blood specimen / Unknown Venipuncture / Unknown 02/27/2025 4:33 AM EDT 02/27/2025 4:45 AM EDT us Sherlyn Daniel MD LAB BLOOD ORDERABLES Final Res ult [facility] [address] [place] [address] * Blood Culture (Aerobic/Anaerobet Set) (02/27/2025 4:30 AM EDT) Culture No growth at day 5 GEENA 03/04/2025 5:01 AM EDT [facility] Blood Venous blood specimen / Unknown Venipuncture / Unknown 02/27/2025 4:30 AM EDT 02/27/2025 4:47 AM EDT us Sherman Gonzáles MD LAB MICROBIOLOGY - GENERAL O RDERABLES Final Result [facility] [address] [place] [address] * Blood Culture (Aerobic/Anaerobet Set) (02/27/2025 4:00 AM EDT) Culture No growth at day 5 GEENA 03/04/2025 5:01 AM EDT [facility] Blood Venous blood specimen / Unknown Venipuncture / Unknown 02/27/2025 4:00 AM EDT 02/27/2025 4:47 AM EDT Sherman Gonzáles MD LAB MICROBIOLOGY - GENERAL O RDERABLES Final Result Performing Organization Address [facility]/ZIP Co de Phone Number [facility] [address] [place] [address] * XR Chest 1 View (02/27/2025 2:37 [...] at 4 Weeks 03/27/2025 8:06 AM EDT [facility] DANY Source not suitable for smear 03/27/2025 8:06 AM EDT [facility] Foreign Body Bone structure of sternum / Unknown 02/26/2025 10:10 AM EDT 02/26/2025 11:21 AM EDT Comment:Pre-op diagnosis: Chest wall abscess [L02.213] Sherlyn Daniel MD LAB MICROBIOLOGY - GENERAL ORD ERABLES Final Result [facility] [address] [place] [address] * (ABNORMAL) Routine Culture and Gram Stain (02/26/2025 10:10 AM EDT) Culture Light Growth 03/01/2025 3:23 PM EDT [facility] Culture Staphylococcus aureus(A) GEENA 03/01/2025 3:23 PM EDT [facility] Foreign Body Bone structure of [...] ORD ERABLES Final Result Performing Organization Address City/[facility]/ZIP Co de Phone Number [facility] [address] [place] [address] * Anaerobic Culture (02/26/2025 10:10 AM EDT) Culture No anaerobes isolated 03/03/2025 5:50 AM EDT [facility] Foreign Body Bone structure of sternum / Unknown 02/26/2025 10:10 AM EDT 02/26/2025 11:21 AM EDT Comment:Pre-op diagnosis: Chest wall abscess [L02.213] Sherlyn Daniel MD LAB MICROBIOLOGY - GENERAL ORD ERABLES Final Result Performing Organization Address [facility] Co de Phone Number [facility] [address] [place] [address] * (ABNORMAL) POCT arterial blood gas gem (02/26/2025 9:42 AM EDT) pH, Arterial 7.42 7.35 - 7.45 02/26/2025 9:44 AM EDT [facility] pCO2, Arterial 41 32 - 45 mm Hg 02/26/2025 9:44 AM EDT [facility] pO2, Arterial 105 83 - 108 mm Hg 02/26/2025 9:44 AM EDT [facility] SO2, Arterial 99(H) 94 - 98 % 02/26/2025 9:44 AM [facility]T [facility] Base Excess, Arterial 1.9 -2 - 3 mmol/L 02/26/2025 9:44 AM [facility] HCO3, Arterial 26.6(H) 22 - 26 mmol/L 02/26/2025 9:44 AM [facility] Total Hemoglobin, Arterial, Whole Blood 13.6(L) 13.7 - 17.5 g/dL 02/26/2025 9:44 AM [facility] Hematocrit, Arterial 41.0 40 - 51.0 % 02/26/2025 9:44 AM [facility] Sodium, Arterial 135(L) 136 - 145 mmol/L 02/26/2025 9:44 AM [facility] Potassium, Arterial 4.1 3.6 - 4.9 mmol/L 02/26/2025 9:44 AM [facility] Chloride, Whole Blood 104 97 - 107 mmol/L 02/26/2025 9:44 AM [facility] Glucose, Arterial 106(H) 74 - 99 mg/dL 02/26/2025 9:44 AM [facility] Ionized Calcium, Arterial 4.7 4.6 - 5.1 mg/dL 02/26/2025 9:44 AM [facility] Lactate, Arterial 0.6 0.5 - 1.6 mmol/L 02/26/2025 9:44 AM [facility] Body Temperature 37.0 Celsius 02/26/2025 9:44 AM [facility] pH, Temp Corrected, Arterial 7.42 7.35 - 7.45 02/26/2025 9:44 AM [facility] pCO2, Temp Corrected, Arterial 41 32 - 45 mm Hg 02/26/2025 9:44 AM [facility] pO2, Temp Corrected, Arterial 105 83 - 108 mm Hg 02/26/2025 9:44 AM [facility] [employer] ID Carina Jordan 02/26/2025 9:44 AM [facility] Blood, Arterial Whole blood specimen / Unknown 02/26/2025 9:42 AM EDT 02/26/2025 9:44 AM EDT Sherlyn Daniel MD LAB POINT OF CARE TE ST DOCKED DEVICE UNSOLICITED RESULTS Final Result [facility] [address] [place] [address] * (ABNORMAL) Abscess Culture and Gram Stain (02/26/2025 9:34 AM EDT) Culture Light Growth 03/01/2025 3:22 PM EDT [facility] Culture Staphylococcus aureus(A) GEENA 03/01/2025 3:22 PM EDT [facility] Comment:The organism value f or this result has been updated. These results have been appended to the previously preliminary verified report. Gram Stain Result Few Polymorphonuclear leukocytes(A) 03/01/2025 3:22 PM EDT [facility] Gram Stain Result Few Gram positive cocci in pairs(A) 03/01/2025 3:22 PM EDT [facility] Swab Bone structure of sternum [...] MICROBIOLOGY - GENERAL ORD ERABLES Final Result [facility] [address] [place] [address] * Fungal Culture, Routine (02/26/2025 9:34 AM EDT) Culture No Fungal Growth at 1 Week 03/06/2025 9:03 AM EDT [facility] Swab Bone structure of sternum / Unknown 02/26/2025 9:34 AM EDT 02/26/2025 11:01 AM EDT Comment:Pre-op diagnosis: Chest wall abscess [L02.213] Sherlyn Daniel MD LAB MICROBIOLOGY - GENERAL ORD ERABLES Final Result Performing Organization Address City/[facility]/ZIP Co de Phone Number [facility] [address] [place] [address] * Anaerobic Culture (02/26/2025 9:34 AM EDT) Culture No anaerobes isolated 03/03/2025 5:50 AM EDT [facility] Swab Bone structure of sternum / Unknown 02/26/2025 9:34 AM EDT 02/26/2025 11:01 AM EDT Comment:Pre-op diagnosis: Chest wall abscess [L02.213] us Sherlyn Daniel MD LAB MICROBIOLOGY - GENERAL ORD ERABLES Final Result Performing Organization Address City/[facility] [place] [address] * Type and screen (02/25/2025 4:54 PM [...] ORDERABL ES Final Result Performing Organization Address City/[facility]/ZIP Co de Phone Number [facility] [address] [place] [address], [place] * (ABNORMAL) Wound Culture and Gram Stain (02/25/2025 4:46 AM EDT) CULTURE READING WOUND Moderate Growth 02/27/2025 3:19 PM EDT [facility] CULTURE READING WOUND Staphylococcus aureus(A) GEENA 02/27/2025 3:19 PM EDT [facility] Comment:The organism value f or this result has been updated. These results have been appended to the previously preliminary verified report. Gram Stain Result Numerous Polymorphonuclear leukocytes(A) 02/27/2025 3:19 PM EDT [facility] Gram Stain Result Numerous Gram positive cocci in pairs(A) 02/27/2025 3:19 PM EDT [facility] Gram Stain Result Numerous Gram positive cocci in clusters(A) 02/27/2025 3:19 PM EDT [facility] Swab Skin structure / Unknown [...] MICROBIOLOGY - GENERAL ORD ERABLES Final Result [facility] [address] [place] [address] * (ABNORMAL) Bacterial ID Gram Positive (02/25/2025 3:18 AM EDT) Staphylococcus Result Detected( A) Not Detected 02/26/2025 4:46 AM EDT [facility] Comment:Assess if contaminan t or clinically relevant pathogen. Consider clinical stability and immune status of patient. Blood Venous blood specimen / Unknown Venipuncture / Unknown 02/25/2025 3:18 AM EDT 02/25/2025 4:04 AM EDT Narrative [facility] - 02/26/2025 4:46 AM EDT [...] MICROBIOLOGY - GENERAL ORD ERABLES Final Result [facility] [address] [place] [address] * Hepatitis C Virus (HCV) Quantitative PCR - ED (02/25/2025 3:18 AM EDT) [facility] Hepatitis C Virus (HCV) Quantitative Interpretation Not Detected Not Detected. 02/27/2025 2:45 PM EDT [facility] Blood Venous blood specimen / Unknown Venipuncture / Unknown 02/25/2025 3:18 AM EDT 02/25/2025 3:53 AM EDT Narrative [facility] - 02/27/2025 2:45 PM EDT [...] ORDERABLES Final Res ult Performing Organization Address [facility] [place] [address] * ED HIV 1/2 Antibody/Antigen Screen w/Reflex to HIV 1/2 Differentiation (02/25/2025 3:18 AM EDT) [facility] HIV 1 & 2 Antibody/Antigen Screen Non Reactive Non Reactive 02/25/2025 4:35 AM EDT [facility] Comment:Screening for HIV 1 & 2 antibodies, and P24 antigen is NONREACTIVE. No confirmatory testing is required. Blood Venous blood specimen / Unknown Venipuncture / Unknown 02/25/2025 3:18 AM EDT 02/25/2025 3:53 AM EDT Franco Guillory MD LAB BLOOD ORDERABLES Final Res ult Performing Organization Address [facility]/ZIP Co de Phone Number [facility] [address] [place] [address] * (ABNORMAL) Hepatitis C Antibody - ED (02/25/2025 3:18 AM EDT) Pathologist [facility] Hepatitis C Antibody Positive(A ) Negative 02/25/2025 4:40 AM EDT [facility] Blood Venous blood specimen / Unknown Venipuncture / Unknown 02/25/2025 3:18 AM EDT 02/25/2025 3:53 AM EDT us Franco Guillory MD LAB BLOOD ORDERABLES Final Res ult [facility] [address] [place] [address] * (ABNORMAL) Blood Culture (Aerobic/Anaerobet Set) (02/25/2025 3:18 AM EDT) Culture Staphylococcus aureus(AA) GEENA 02/27/2025 1:21 PM EDT [facility] Comment: Isolated from aerobic and anaerobic culture bottles. The organism value for this result has been updated. These results have been appended to the previously preliminary verified report. Culture Staphylococcus coagulase negative(AA) GEENA 02/27/2025 1:21 PM EDT [facility] Comment: Isolated from aerobic and anaerobic culture bottles. Isolated from one bottle only in a 24-hour period. If workup required, contact bacteriology at [facility]. This organism may be associated with a contaminated culture. The organism value for this result has been updated. These results have been appended to the previously preliminary verified report. Gram Stain Gram positive cocci in clusters(AA) 02/27/2025 1:21 PM EDT [facility] Comment: Organism seen in Anaerobic Blood Culture Bottle. Positivity Date and Time to Detection: 02/25/2025. at 00 Day(s) and 16 Hour(s). This is an appended report. These results have been appended to a previously preliminary verified report. Gram Stain Gram positive cocci in clusters(AA) 02/27/2025 1:21 PM EDT [facility] Comment: Organism seen in Aerobic Blood Culture Bottle. Positivity Date and Time to Detection: 02/25/2025 at 00 Day(s) and 16 Hour(s). This is an appended report. These results have been appended to a previously preliminary verified report. Blood Venous blood specimen / Unknown Venipuncture / Unknown 02/25/2025 3:18 AM EDT 02/25/2025 4:04 AM EDT Narrative [facility] - 02/27/2025 1:21 PM EDT Anaerobic blood culture entered in duplicate. Organism Antibiotic Method Susceptibility Staphylococcus aureus Daptomycin GEENA <=1 ug/ml: Susceptible Staphylococcus aureus Linezolid GEENA <=1 ug/ml: Susceptible Staphylococcus aureus Oxacillin GEENA <=0.25 ug/ml: Susceptible Staphylococcus aureus Vancomycin GEENA 1 ug/ml: Susceptible Franco Guillory MD LAB MICROBIOLOGY - GENERAL ORD ERABLES Final Result [facility] [address] [place] [address] * (ABNORMAL) Blood Culture (Aerobic/Anaerobet Set) (02/25/2025 3:18 AM EDT) Culture Staphylococcus aureus(AA) 03/03/2025 12:34 PM EDT [facility] Comment: For susceptibility results refer to: - [id number] Isolated from aerobic and anaerobic culture bottles. The organism value for this result has been updated. These results have been appended to the previously preliminary verified report. Gram Stain Gram positive cocci in clusters(AA) 03/03/2025 12:34 PM EDT [facility] Comment: Organism seen in Anaerobic Blood Culture Bottle. Positivity Date and Time to Detection: 02/26/2025. at 00 Day(s) and 19 Hour(s). This is an appended report. These results have been appended to a previously preliminary verified report. Gram Stain Gram positive cocci in clusters(AA) 03/03/2025 12:34 PM EDT [facility] Comment: Organism seen in Aerobic [...] MICROBIOLOGY - GENERAL ORD ERABLES Final Result [facility] [address] [place] [address] * (ABNORMAL) Sed rate, automated (02/25/2025 3:18 AM EDT) Sedimentation Rate 65(H) <15 mm/hr 2024 3:54 AM EDT [facility] Blood Venous blood specimen / Unknown Venipuncture / Unknown 02/25/2025 3:18 AM EDT 02/25/2025 3:40 AM EDT Franco Guillory MD LAB BLOOD ORDERABLES Final Res ult Performing Organization Address [facility]/[place] de Phone Number [facility] [address] [place] [address] * (ABNORMAL) C-Reactive protein (02/25/2025 3:18 AM EDT) CRP, Plasma 282.5(H) <=8.0 mg/L 02/25/2025 4:23 AM EDT [facility] Blood Venous blood specimen / Unknown Venipuncture / Unknown 02/25/2025 3:18 AM EDT 02/25/2025 3:53 AM EDT Narrative [facility] - 02/25/2025 4:23 AM EDT This CRP test is appropriate for assessment of infection, systemic inflammation and/or tissue injury. To assess cardiovascular disease risk order high sensitivity CRP (CRPH). us Franco Guillory MD LAB BLOOD ORDERABLES Final Res ult Performing Organization Address [facility]/[place] [address] * Phosphorus (02/25/2025 3:18 AM EDT) Phosphorus, Plasma 2.7 2.5 - 4.5 mg/dL 02/25/2025 4:23 AM EDT [facility] Blood Venous blood specimen / Unknown Venipuncture / Unknown 02/25/2025 3:18 AM EDT 02/25/2025 3:53 AM EDT Franco Guillory MD LAB BLOOD ORDERABLES Final Res ult Performing Organization Address City/[facility] Co de Phone Number [facility] [address] [place] [address] * Magnesium (02/25/2025 3:18 AM EDT) Magnesium, Plasma 2.2 1.9 - 2.4 mg/dL 02/25/2025 4:23 AM EDT [facility] Blood Venous blood specimen / Unknown Venipuncture / Unknown 02/25/2025 3:18 AM EDT 02/25/2025 3:53 AM EDT us Franco Guillory MD LAB BLOOD ORDERABLES Final Res ult [facility] [address] [place] [address] * (ABNORMAL) CMP (02/25/2025 3:18 AM EDT) Glucose, Plasma 132(H) 74 - 99 mg/dL 02/25/2025 4:23 AM EDT [facility] BUN, Plasma 13 7 - 21 mg/dL 02/25/2025 4:23 AM EDT [facility] Creatinine, Plasma 0.86 0.70 - 1.20 mg/dL 02/25/2025 4:23 AM EDT [facility] BUN/Creatinine Ratio 15 02/25/2025 4:23 AM EDT [facility] Sodium, Plasma 137 136 - 145 mmol/L 02/25/2025 4:23 AM EDT [facility] Potassium, Plasma 3.7 3.6 - 4.9 mmol/L 02/25/2025 4:23 AM EDT [facility] Chloride, Plasma 101 97 - 107 mmol/L 02/25/2025 4:23 AM EDT [facility] CO2, Plasma 24 22 - 29 mmol/L 02/25/2025 4:23 AM EDT [facility] Anion Gap 12 6 - 16 mmol/L 02/25/2025 4:23 AM EDT [facility] Total Calcium, Plasma 9.2 8.9 - 10.2 mg/dL 02/25/2025 4:23 AM EDT [facility] Total Protein 7.4 6.3 - 7.9 g/dL 02/25/2025 4:23 AM EDT [facility] Albumin, Plasma 3.5 3.5 - 5.2 g/dL 02/25/2025 4:23 AM EDT [facility] AST, Plasma 20 10 - 50 U/L 02/25/2025 4:23 AM EDT [facility] Comment:Hemolyzed, result ma y be falsely increased. ALT, Plasma 16 10 - 50 U/L 02/25/2025 4:23 AM EDT [facility] Alkaline Phosphatase, Plasma 100 40 - 115 U/L 02/25/2025 4:23 AM EDT [facility] Total Bilirubin, Plasma 0.7 0.2 - 1.1 mg/dL 02/25/2025 4:23 AM EDT [facility] eGFRcr 115.1 mL/min/1.7 3m*2 02/25/2025 4:23 AM EDT [facility] Comment:Reported eGFRcr in m L/min/1.73m2 is based the CKD-EPI 2020 equation that does not use a race coefficient. Blood Venous blood specimen / Unknown Venipuncture / Unknown 02/25/2025 3:18 AM EDT 02/25/2025 3:53 AM EDT Franco Guillory MD LAB BLOOD ORDERABLES Final Res ult [facility] [address] [place] [address] * (ABNORMAL) CBC w/diff (02/25/2025 3:18 AM EDT) WBC Count 9.74 3.70 - 10.30 10*3/uL LAB HEMATOLOGY METHOD 02/25/2025 3:42 AM EDT [facility] RBC Count 5.34 4.60 - 6.10 10*6/uL LAB HEMATOLOGY METHOD 02/25/2025 3:42 AM EDT [facility] HGB 15.5 13.7 - 17.5 g/dL LAB HEMATOLOGY METHOD 02/25/2025 3:42 AM EDT [facility] HCT 45.4 40.0 - 51.0 % LAB HEMATOLOGY METHOD 02/25/2025 3:42 AM EDT [facility] Platelet Count 167 155 - 369 10*3/uL LAB HEMATOLOGY METHOD 02/25/2025 3:42 AM EDT [facility] MCV 85 79 - 98 fL LAB HEMATOLOGY METHOD 02/25/2025 3:42 AM EDT [facility] MCH 29.0 26.0 - 32.0 pg LAB HEMATOLOGY METHOD 02/25/2025 3:42 AM EDT [facility] MCHC 34.1 30.7 - 35.5 g/dL LAB HEMATOLOGY METHOD 02/25/2025 3:42 AM EDT [facility] RDW 13.2 11.5 - 14.5 % LAB HEMATOLOGY METHOD 02/25/2025 3:42 AM EDT [facility] MPV 10.0 8.8 - 12.5 fL LAB HEMATOLOGY METHOD 02/25/2025 3:42 AM EDT [facility] nRBC 0.0 <=0.0 per 100 WBCs LAB HEMATOLOGY METHOD 02/25/2025 3:42 AM EDT [facility] Differential Type Automated LAB HEMATOLOGY METHOD 02/25/2025 3:42 AM EDT [facility] Neutrophils % 80 % LAB HEMATOLOGY METHOD 02/25/2025 3:42 AM EDT [facility] Lymphocytes % 10 % LAB HEMATOLOGY METHOD 02/25/2025 3:42 AM EDT [facility] Monocytes % 8 % LAB HEMATOLOGY METHOD 02/25/2025 3:42 AM EDT [facility] Eosinophils % 1 % LAB HEMATOLOGY METHOD 02/25/2025 3:42 AM EDT [facility] Basophils % 0 % LAB HEMATOLOGY METHOD 02/25/2025 3:42 AM EDT [facility] Immature Granulocytes % 1 % LAB HEMATOLOGY METHOD 02/25/2025 3:42 AM EDT [facility] Neutrophils Absolute 7.79(H) 1.60 - 6.10 10*3/uL LAB HEMATOLOGY METHOD 02/25/2025 3:42 AM EDT [facility] Lymphocytes Absolute 1.00(L) 1.20 - 3.90 10*3/uL LAB HEMATOLOGY METHOD 02/25/2025 3:42 AM EDT [facility] Monocytes Absolute 0.76 0.30 - 0.90 10*3/uL LAB HEMATOLOGY METHOD 02/25/2025 3:42 AM EDT [facility] Eosinophils Absolute 0.11 0.00 - 0.50 10*3/uL LAB HEMATOLOGY METHOD 02/25/2025 3:42 AM EDT [facility] Basophils Absolute 0.02 0.00 - 0.10 10*3/uL LAB HEMATOLOGY METHOD 02/25/2025 3:42 AM EDT [facility] Immature Granulocytes Absolute 0.06 0.00 - 0.06 10*3/uL LAB HEMATOLOGY METHOD 02/25/2025 3:42 AM EDT [facility] Blood Venous blood specimen / Unknown Venipuncture / Unknown 02/25/2025 3:18 AM EDT 02/25/2025 3:40 AM EDT Narrative [facility] - 02/25/2025 3:42 AM EDT Therapeutic decision making should be based on absolute values, rather than percentages. us Franco Guillory MD LAB BLOOD ORDERABLES Final Res ult [facility] [address] [place] [address] documented in this encounter Visit Diagnoses Diagnosis [...] Yared Cartwright RN)0925 (Given - Provider: Mayelin oDrsey RN)181 (Given - Provider: Mayelin Dorsey RN) [...] Cartwright RN)1421 (Given - Provider: Mayelin Dorsey RN)221 (Given - Provider: Marsha Miranda [...] Provider: Gallo Bhatt RN)211 (Given - Provider: Gulhsan Toney RN) 0824 (Given - Provider: Gallo [...] 0425, Until Discontinued, Routine [facility]: Yared Cartwright RN)1814 (Given - Provider: Mayelin Dorsey RN) 0405 (Given - Provider: Marsha Miranda RN)1535 (Given - Provider: Gallo Bhatt RN) 0358 (Given - Provider: Gulshan Toney RN) sodium chloride 0.9 % flush 10 mL 10 mL, Intravenous, Every 12 hours, First dose on 03/04/25 at 1745, Until Discontinued, Routine 1814 (Given - Provider: Mayelni Dorsey, RN) 0618 (Given - Provider: Marsha [...] documented as of this encounter Care Teams [employer] Babysitter Relationship Specialty Start Date End Date P[place], [place] [address] PCP - General Family Medicine 02/25/25 Francisco Javier Eller MD [address] [place], [place] [id number] Geriatric Nursing Assistant 03/02/25 documented as of this encounter
--- OUTSIDE RECORDS SUMMARY | 2025-02-26 08:43 | XMS_ITS | Encounter Summary ---
Author Organization Healthcare Address [address] [place] [address] Care Team Providers Care Flagger Name Role Phone Pcp, No Primary Care Provider Unavailabl e Reason for Visit * Auth/Cert (Routine) Specialty Diagnoses / Procedures Referred By Kerry ramirez Referred To Contact Diagnoses Sternal wound dehiscence, initial encounter chest abscess at surgical scar near mediastinum [facility] [address] [place] [address] Phone: tel: fax: [facility] Emergency Department [address] [place] [address] Phone: tel: Referral ID Status Reason Start Date Expiration Date Visits Re quested Visits Authorized [id number] 1 1 Encounter Details Date Type Department Care Team (Late st Contact Info) Description 02/26/2025 8:43 AM EDT Anesthesia Event [facility] OPERATING ROOM [address] [place] [address] Praneeth Jasmine MD [address] [place] [address] Jeremy Franco MD [address] [place] [address] Anesthesia Record Procedure Summary Procedure [...] any time in the past 12 m [facility], were you homeless or living in a fdc (including now)? No 02/27/2025 Utilities Answer Date [...] portions of the procedure(s) and [facility]. See resident [...] portions of the procedure(s) and immediately available [facility] services the entire duration. See resident note for details. * Anesthesia Preprocedure Evaluation - Praneeth Jasmine MD - 02/26/2025 7:02 AM EDT Patient: Alex Amaya Procedure Information Date/Time: 02/26/25 0900 Procedure: CHEST WASHOUT, REMOVAL OF STERNAL PLATES Location: [facility] OR Diane / Y[facility] OR Surgeons: [...] Description 04/10/2025 8:30 AM EDT Office Visit [facility] [address] [place] [address] Keny Chin MD [facility] [address] [address] documented as of this encounter Procedures Procedure Name Priority Date/Time Associated Diagnosis Comments PB ANESTHESIA NON-TIMED PROCEDURE PLACEHOLDER Routine 02/26/2025 9:33 AM EDT PB ANESTHESIA PLACEHOLDER Routine 02/26/2025 8:53 AM EDT MD AN ELECTIVE ENDOTRACHEAL AIRWAY Routine 02/26/2025 8:53 [...] MD ANESTHESIA ORDERABLES Final Res ult * MD AN ELECTIVE ENDOTRACHEAL AIRWAY, PB ANESTHESIA PLACEHOLDER [...] documented as of this encounter Care Teams Flagger Relationship Specialty Start Date End Date Pcp, No [address] [place] [address] PCP - General Family Medicine 02/25/25 documented as of this encounter
--- OUTSIDE RECORDS SUMMARY | 2025-02-26 09:00 | XMS_ITS | Encounter Summary ---
Author Organization Healthcare Address [address] [place] [address] Care Team Providers Care Foundry Manager Name Role Phone Pcp, No Primary Care Provider Unavailabl e Reason for Visit * Reason Comments Wound Check * Auth/Cert (Routine) Specialty Diagnoses / Procedures Referred By Kerry t Referred To Contact Diagnoses Sternal wound dehiscence, initial encounter chest abscess at surgical scar near mediastinum with hx cabg 2021 at [facility] Sherlyn Daniel MD [address] [address] Phone: tel: fax: [facility] A Emergency Department [address] [place] [address] Phone: tel: Referral ID Status Reason Start Date Expiration Date Visits Re quested Visits Authorized [id number] 1 1 Encounter Details Date Type Department Care Team (Late st Contact Info) Description 02/26/2025 9:00 AM EDT - 02/26/2025 11:30 AM EDT Surgery [facility] A OPERATING ROOM [address] [place] [id number] Sherlyn Daniel MD [id number] [place] [address] CHEST WASHOUT, REMOVAL OF STERNAL [...] any time in the past 12 m [facility], were you homeless or living in a detention (including now)? No 02/27/2025 Utilities Answer Date Recorded In the past 12 months has e electric, gas, oil, or water eMeter threatened to shut off services in your [...] 1 each 5 04/10/20 25 HYDROcodone-acetami nophen ([place]) 5-325 MG tablet Take 1 tablet by [...] MD PCP name and Address: Pcp, [facility] [address] [place] [id number] Referring provider name and address: Stephen Tello NP [address] [place] [address] [place], [place] Chief Concern, Brief History of Present Illness, and Hospital Course Alex Amaya is a 34 y.o. male with history of IV drug use on suboxone, infectious endocarditisrequiring tricuspid valve repair in [place] in 2019. He states that he had [...] got worse so he went to [facility] where he was found to have [...] Your Medications These medications were sent to [facility] - [place], [place] - [address] [place], [facility] [phone] ceFAZolin injection These medications were sent to [facility] - [place], [place] - [address] [facility] [id number] lidocaine 5 % patch methocarbamol 750 MG [...] leaflet repair and De Lucas procedure at [facility] ([place]) - OSH CT imaging uploaded and reviewed - 02/25: BCx (+) staph aureus - Underwent chest washout, wound debridement, removal of sternal plates, and wound vac placement on02/[address] Daniel (silver sponge so no WV change til Wednesday) - TTE shows LVEF 59%, mod dilated RV with nl RV fx. TV leaflets thickened. [place] TV endocarditis post valve repair with a DeVega Procedure at [facility] (2019). There appears to be restricted [...] Post-Operative Pain - Continue home Suboxone - [facility] Obesity (POA) - BMI 33.47 - Complicates [...] 03/08/2025 2:00 PM Keny Tristan MD [facility] 03/12/2025 9:40 AM Sherlyn Daniel MD [facility] 03/26/2025 11:40 AM Sherlyn Daniel MD CVTCHGARRISON [facility] 03/27/2025 9:00 AM Keny Chin MD IDBCCL[facility] [place] 04/10/2025 9:00 AM Leela Chin MD IDBCCLX [place] Follow-up: Francisco Javier Eller MD [address] [id number] Go on 04/26/2025 Your appointment time is 2:10pm Please arrive 15 minutes early and bring bottles of medication [facility] [address] [place] [address] Go on 03/12/2025 03/12/25 at 11:30 AM - Infusion Center for PICC and labs Wound Vac Changes MWF - same location, but in Physical Therapy Department - First Appointment 03/14/25 9:00 AM [facility] [address] [place] [address] Follow up for IV antibiotics and supplies Stephen Tello, SONYA [address] [place] [address] [facility] Test Results Pending At Discharge [...] Note Alex Amaya 34 y.o. male CSN: [id number] Admission: 02/25/2025 2:42 AM Primary Problem: Sternal wound dehiscence, initial encounter Primary Premium Card Cancellation Clerk: Primary Caregiver: Self Assistance Available at Discharge: Availability of Care Givers (#Hours): 24 hours, No assistance needed Family/Premium Card Cancellation Clerk(s) Willingness Assessed to care for patient at [...] 30 days Follow-up: Francisco [facility] [address] Go on 04/26/2025 Your appointment time is 2:10pm Please arrive 15 minutes early and bring bottles of medication [address] [id number] Go on 03/12/2025 03/12/25 at 11:30 AM - Infusion Center for PICC and labs Wound Vac Changes MWF - same location, but in Physical Therapy Department - First Appointment 03/14/25 9:00 AM [facility] [address] [place] [address] Follow up for IV antibiotics and supplies Stephen Tello, SONYA [address] [place] [address] [facility] Discharge Transportation: Transportation Anticipated: family [...] vac changes and then will go to [facility]. S/O will assist and transport. [...] note were not included. [address] [place]: Rescue Guide for Opioid Overdose Step 1 [...] for use in the nose. * [facility] - Barbara Martins - 03/06/2025 9:41 AM EDT Images from the original note were not included. [id number] Methocarbamol Brand Name(s): Robaxin??; also available generically [...] be awakened, immediately call emergency services at 102. What OTHER INFORMATION should I know? Keep all appointments with your doctor. Do not let anyone else take your medication. Ask your pharmacist any questions you have about refilling your prescription. It is important for you to keep a written list of all of the prescription and nonprescription (hqfd-bya-irippxz) medicines you are taking, as well as [...] or pharmacist about specific clinical use. The [place] [employer] represents that the information provided hereunder was formulated with a reasonable standard of care, and in conformity with professional standards in the field. The [place] [employer] makes no representations or warranties, express or implied, including, but not limited to, any implied warranty of merchantability and/or fitness for a particular purpose, with respect to such information and specifically disclaims all such warranties. Users are advised that decisions regarding drug therapy are complex medical decisions requiring the independent, informed decision of an appropriate health wild animal caretaker, and the information is provided for informational purposes only. The entire monograph for a drug should be reviewed for a thorough understanding of the drug's actions, uses and side effects. The [place] [employer] does not endorse or recommend the use of any drug.The information is not a substitute for medical care. AHFS?? Patient Medication Information?. ?? Copyright, 2023. The [place] [employer]??, [address], [address], [place], [place]. All Rights Reserved. Duplication for commercial use must be authorized by [facility]. Selected Revisions: May 18, 2017. AHFS?? Patient Medication Information?. ?? Copyright, 2024 * Tyler MooreLESLI - Barbara Martins - 03/06/2025 9:41 AM EDT Images from the original note were not included. [id number] Lidocaine Transdermal Patch Brand Name(s): Absorbine Jr?? [...] or years after a shingles infection). Nonprescription (njjy-xou-yrxhcur) lidocaine (Absorbine Jr, Aspercreme, Lidoca re, Salonpas, [...] or doctor for a copy of the client representative's information for the patient. Are there OTHER [...] if you have or have ever had yqtaobg-3-mxtrebbkp dehydrogenase (G-6PD) deficiency (an inherited blood disorder), [...] of all of the prescription and nonprescription (clzg-mmz-kgjlgjy) medicines you are taking, as well as [...] or pharmacist about specific clinical use. The [place] [employer] represents that the information provided hereunder was formulated with a reasonable standard of care, and in conformity with professional standards in the field. The [place] [employer] makes no representations or warranties, express or implied, including, but not limited to, any implied warranty of merchantability and/or fitness for a particular purpose, with respect to such information and specifically disclaims all such warranties. Users are advised that decisions regarding drug therapy are complex medical decisions requiring the independent, informed decision of an appropriate health wild animal caretaker, and the information is provided for informational purposes only. The entire monograph for a drug should be reviewed for a thorough understanding of the drug's actions, uses and side effects. The [place] [employer] does not endorse or recommend the use of any drug.The information is not a substitute for medical care. AHFS?? Patient Medication Information?. ?? Copyright, 2023. The [employer] [employer]??, [address], [address], [place], [place]. All Rights Reserved. Duplication for commercial use must be authorized by [facility]. Selected Revisions: March 18, 2021. AHFS?? Patient Medication Information?. ?? Copyright, 2024 * Tyler Easley - Barbara Martins - 03/06/2025 9:41 AM EDT Images from the original note were not included. [id number] Cefazolin Injection Brand Name(s): Ancef?, Kefzol?; also [...] of all of the prescription and nonprescription (huyh-cdd-exrluhs) medicines you are taking, as well as [...] or pharmacist about specific clinical use. The [place] [employer] represents that the information provided hereunder was formulated with a reasonable standard of care, and in conformity with professional standards in the field. The [place] [employer] makes no representations or warranties, express or implied, including, but not limited to, any implied warranty of merchantability and/or fitness for a particular purpose, with respect to such information and specifically disclaims all such warranties. Users are advised that decisions regarding drug therapy are complex medical decisions requiring the independent, informed decision of an appropriate health wild animal caretaker, and the information is provided for informational purposes only. The entire monograph for a drug should be reviewed for a thorough understanding of the drug's actions, uses and side effects. The [place] [employer] does not endorse or recommend the use of any drug.The information is not a substitute for medical care. AHFS?? Patient Medication Information?. ?? Copyright, 2023. The [place] [employer]??, [address], [address], [place], [place]. All Rights Reserved. Duplication for commercial use must be authorized by [facility]. Selected Revisions: March 23, 2024. AHFS?? Patient [...] present and normoactive x 4 quadrants SKIN: [place], warm, and dry. No rash, sores, or [...] leaflet repair and De Lucas procedure at [facility]) - OS CT imaging uploaded and reviewed - 02/25: BCx (+) staph aureus - Underwent chest washout, wound debridement, removal of sternal plates, and wound vac placement on02/[address] Daniel (silver sponge so no WV change til Wednesday) - TTE shows LVEF 59%, mod dilated RV with nl RV fx. TV leaflets thickened. [place] TV endocarditis post valve repair with a DeVega Procedure at [facility] (2019). There appears to be restricted [...] WV changes, continue home Suboxone Cardiothoracic Surgery [phone] * Progress Notes - Lise Christine, RN - 03/05/2025 3:07 PM EDT Case Management Discharge Note Alex Amaya 34 y.o. male CSN: [id number] Admission: 02/25/2025 2:42 AM Primary Problem: Sternal wound dehiscence, initial encounter Primary Premium Card Cancellation Clerk: Primary Caregiver: Self Assistance Available at Discharge: Availability of Care Givers (#Hours): 24 hours, No assistance needed Family/Premium Card Cancellation Clerk(s) Willingness Assessed to care for patient at [...] 30 days Follow-up: Francisco Javier Ell[facility] [address] Go on 04/26/2025 Your appointment time is 2:10pm Please arrive 15 minutes early and bring bottles of medication [address] [place] [address] Go on 03/12/2025 03/12/25 at 11:30 AM - Infusion Center for PICC and labs Wound Vac Changes MWF - same location, but in Physical Therapy Department - First Appointment 03/14/25 9:00 AM [facility] [place] [address] Follow up for IV antibiotics and supplies Discharge Transportation: Transportation Anticipated: family or friend will provide Transportation Home at Discharge: Family/Friend will Provide Follow Up Transport: Transportation Needed to Follow up Appoinments: Family/Friend will Provide Additional Comments: Per primary team patient is medically ready for discharge. Patient will discharge with IV antibiotics from [facility] - supplies will be delivered to bedside. Wound vac ordered through [facility] - will be delivered to bedside. Patient will follow up in Cardiovascular Clinic for first two wound vac changes, then will go to [facility] starting March 14. Patient also scheduled to go to [facility] infusion center for PICC care and [...] Roper RN Authorized by: Sherlyn Daniel MD [place] Protocol: Verbal consent obtained?: Yes Written consent [...] vein Patient position: Flat Catheter Lot #: [id number] Catheter client representative: [employer] Catheter placed: Single lumen Catheter size: 4 [...] present and normoactive x 4 quadrants SKIN: [place], warm, and dry. No rash, sores, or [...] leaflet repair and De Lucas procedure at [facility]) - OS CT imaging uploaded and reviewed - 02/25: BCx (+) staph aureus - Underwent chest washout, wound debridement, removal of sternal plates, and wound vac placement on02/[address] Daniel (silver sponge so no WV change til Wednesday) - TTE shows LVEF 59%, mod dilated RV with nl RV fx. TV leaflets thickened. [place] TV endocarditis post valve repair with a DeVega Procedure at [facility] (2019). There appears to be restricted [...] wound vac - picc ordered Cardiothoracic Surgery [phone] * Care Plan - Yared Cartwright RN [...] present and normoactive x 4 quadrants SKIN: [place], warm, and dry. No rash, sores, or [...] leaflet repair and De Lucas procedure at [facility] ([place]) - OSH CT imaging uploaded and reviewed - 02/25: BCx (+) staph aureus - Underwent chest washout, wound debridement, removal of sternal plates, and wound vac placement on02/[address] Daniel (silver sponge so no WV change til Wednesday) - TTE shows LVEF 59%, mod dilated RV with nl RV fx. TV leaflets thickened. [place] TV endocarditis post valve repair with a DeVega Procedure at [facility] (2019). There appears to be restricted [...] Post-Operative Pain - [facility] Obesity (POA) - BMI 33.47 - Complicates care Plan: - Continue cefazolin per ID - Continue wound vac - Per ID, if BC from 02/27 & 03/01 remain negative, okay to order single lumen PICC. Cardiothoracic Surgery [phone] * Care Plan - Yared Cartwright RN [...] leaflet repair and De Lucas procedure at [facility] ([place]) - OSH CT imaging uploaded and reviewed - 02/25: BCx (+) staph aureus - Underwent chest washout, wound debridement, removal of sternal plates, and wound vac placement on02/[address] Daniel (silver sponge so no WV change til Wednesday) - TTE shows LVEF 59%, mod dilated RV with nl RV fx. TV leaflets thickened. [place] TV endocarditis post valve repair with a DeVega Procedure at [facility] (2019). There appears to be restricted [...] Post-Operative Pain - Continue home Suboxone - [facility] Obesity (POA) - BMI 33.47 - Complicates care Plan: - Continue cefazolin per ID - Continue wound vac - Per ID, if BC from 02/27 & 03/01 remain negative, okay to order single lumen PICC. Cardiothoracic Surgery [phone] * Significant Event - Keny Chin MD [...] 0930AM WEEK 6 FOLLOWUP: 04/10/2025, 0900AM at [address] [place] [address] (Select Option 3 for IV Antibiotic / PICC line related issues) All questions regarding outpatient parenteral antimicrobials after discharge should be directed to the OPAT nurse navigator at (Select Option 3 for IV Antibiotics/PICC Issues) between 8am-5pm. After 5 pm, or during weekends/[place] holidays, please call the paging refrigeration operator at to reach the on-call ID [...] mg, Oral, q4h PRN, Zacher, Kelsie A, SALES REPRESENTATIVE Buprenorphine HCl-Naloxone HCl (Suboxone) 8-2 MG per SL film 8 mg, 8 mg, Sublingual, BID, Alejandro Sandoval PA, 8 mg at 03/02/25 0924 calcium carbonate (Tums) chewable tablet 500 mg, 500 mg, Oral, q6h PRN, Zariley, Kelsie A, SALES REPRESENTATIVE ceFAZolin (Ancef) injection 2 g, 2 g, Intravenous, q8h, Carloz Kelsie A, SALES REPRESENTATIVE, 2 g at 03/02/25 0923 docusate sodium (Colace) capsule 100 mg, 100 mg, Oral, BID, Zariley, Kelsie A, SALES REPRESENTATIVE, 100 mg at 03/02/25 0923 heparin (porcine) injection 5,000 Units, 5,000 Units, Subcutaneous, q8h [facility], Maxwell Ocasio MD, 5,000 Units at 03/02/25 0515 HYDROmorphone (Dilaudid) tablet 2 mg, 2 mg, Oral, q6h PRN, Zacher, Kelsie A, SALES REPRESENTATIVE ibuprofen tablet 600 mg, 600 mg, Oral, q6h PRN, Zacher, Kelsie A, SALES REPRESENTATIVE lidocaine (Lidoderm) 5 % patch 1 patch, [...] mL, 10 mL, Intravenous, PRN, Kelsie Carty SALES REPRESENTATIVE O: Visit Vitals BP 130/79 (BP Location: [...] regurgitation. Tricuspid Valve: The leaflets appear thickened. [place] TV endocarditis post valve repair with a DeVega Procedure at [facility] (2019). There appears to be restricted [...] is no recent study available for direct skyv-es-utmo comparison. 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 Ptalso with h/o TV IE in 2019 for which he had TV leaflet repair and De Lucas procedure at [facility]). Pt was incarcerated at the time, and post-discharge developed chronic drainage from cephalad portion of sternal wound. Pt reportedly had I&Ds at [facility] facility. Wound subsequentlyhas open and closed several times since 2021, including in December 2024. On/around 02/19/2025, wound again ruptured with large amount of purulent drainage, which pt described as largest amount of renata inage in several years. Pt seen at [facility] 02/24/2025. 02/24/2025 CT showed 2.4x2.1x2.6cm [...] leaflet repair and De Lucas procedure at [facility] SUBSTANCE ABUSE: Illicit: H/o IVDA, polysubstance abuse. [...] appointment in order to complete registration paperwork.) [facility] (Infectious Diseases [facility]) [address] [place] [address] ADVERTISING STATISTICAL CLERK: . FAX: [facility] [...] arms away from your body. * [facility] - Donna Rosario RN - 03/02/2025 10:43 AM EDT Images from the original note were not included. [id number] Understanding Wound Separation After Surgery (Wound Dehiscence) [...] of the opening. How to say it jby-GORB-latnk How wound dehiscence happens A wound can [...] all of the wound is open ?? [place] or stitches are broken ?? Pain ?? [...] wound ?? Stitches that pull apart ?? [place] that fall out Last Reviewed Date: 2024 00:00:00 ?? [id number] [employer]. All rights reserved. This information is not intended as a substitute for professional medical care. Always follow your healthcare professional's instructions. * Consults - Asia Neumann RD - 03/02/2025 9:48 AM EDT Adult Nutrition Evaluation Note Alex Amaya 34 y.o. male CSN: [id number] Room/Bed 119/119A Nutrition evaluation type: assessment Reason for evaluation: [facility] Hospital course: 34 yo male transferred to from [facility] for evaluation of chronic sternotomy wound with [...] suboxone, infectious endocarditis requiring tricuspid valverepair in [place] in 2019. Medical History[1] Surgical History[2] Social [...] (Room air) O2 Delivery Method: Nasal cannula [place] Coma Scale Score: 15 Jhony Scale Score: [...] (260 lb 12.9 oz) BMI (Calculated): 33.47 [place] Body Weight (kg): 86.4 Percent [place] Body Weight: 137 Adjusted Body Weight (kg): 94.4 Estimated Needs: Metabolic Cart Study Results: Current Nutrition Intake: Diet Supplements: None Diet Order: Adult Diet Diet Texture: Regular Percent Meals Eaten (%): 100% x 3 meals Diet Experience and Nutrition History: Diet Education Provided: Will monitor Pertinent home medications: Reviewed Restoration needs: Nutrition Focused Physical Exam: Physical exam [...] with nl RV fx. TV leaflets thickened. [place] TV endocarditis post valve repair with a DeVega Procedure at [facility] (2019). There appears to be restricted motion/malcoaptation involving the septal leaflet. There is no tricuspid valve vegetation. There is severe tricuspid regurgitation. There is systolic flow reversal of the hepatic veins consistent with significant tricuspid valve regurgitation. OUD (POA) Post-Operative Pain - continue home Suboxone - [facility] Obesity (POA) - BMI 33.88 - complicates all aspects of care Plan: - Continue IV abx per ID - Continue wound vac - Will need PICC Cardiothoracic Surgery [phone] * Progress Notes - Estefania Salguero - 03/01/2025 8:08 AM EDT Case Management Adult Progress Note Alex Amaya 34 y.o. male CSN: [id number] Admission: 02/25/2025 2:42 AM Primary Problem: Sternal [...] IV Access: pending Patient Specific Outpatient Circumstances: [address] [place], [place] [id number] Family Support: Extended Emergency Contact Information Primary Emergency Contact: Mary Lemus Mobile Relation: Significant Other Preferred language: Serbian Manager Safe needed? No Contact information: Alex Amaya -[phone] Afua Nguyenel (pt's S.O. -will administer IV abx) - [phone] Outpatient services (including home infusion, home health, [...] PICC care/labs;patient is requesting to go to [facility] close to home . After this discussion, [...] via secure chat or staff messaging in [employer]. This note is not the final recommendations [...] mg, Oral, q6h PRN, Carloz Kelsie A, SALES REPRESENTATIVE ceFAZolin (Ancef) injection 2 g, 2 g, Intravenous, q8h, August Cartya A, SALES REPRESENTATIVE, 2 g at 02/28/25 0908 docusate sodium (Colace) capsule 100 mg, 100 mg, Oral, BID, August Cartya A, SALES REPRESENTATIVE, 100 mg at 02/27/25 2139 heparin (porcine) [...] regurgitation. Tricuspid Valve: The leaflets appear thickened. [place] TV endocarditis post valve repair with a DeVega Procedure at [facility] (2019). There appears to be restricted [...] is no recent study available for direct snmh-go-uhcy comparison. 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 Ptalso with h/o TV IE in 2019 for which he had TV leaflet repair and De Lucas procedure at [facility]). Pt was incarcerated at the time, and post-discharge developed chronic drainage from cephalad portion of sternal wound. Pt reportedly had I&Ds [facility]. Wound subsequentlyhas open and closed several times since 2021, including in December 2024. On/around 02/19/2025, wound again ruptured with large amount of purulent drainage, which pt described as largest amount of renata inage in several years. Pt seen at [facility] 02/24/2025. 02/24/2025 CT showed 2.4x2.1x2.6cm [...] leaflet repair and De Lucas procedure at [facility] ([place]) SUBSTANCE ABUSE: Illicit: H/o IVDA, polysubstance abuse. [...] treatment * Progress Notes - Kelsie Carty, SALES REPRESENTATIVE - 02/28/2025 11:30 AM EDT CVT Progress [...] with nl RV fx. TV leaflets thickened. [place] TV endocarditis post valve repair with a DeVega Procedure at [facility] (2019). There appears to be restricted motion/malcoaptation involving the septal leaflet. There is no tricuspid valve vegetation. There is severe tricuspid regurgitation. There is systolic flow reversal of the hepatic veins consistent with significant tricuspid valve regurgitation. OUD (POA) Post-Operative Pain - [facility] Obesity (POA) - BMI 33.88 [...] needed in the future. Mayelin Caruso PharmD, [facility] Clinical Pharmacist - Cardiology Contact via [...] of HCV workup. Branden Elizalde, Pharm D. [facility] via secure [...] - GPC. Cx - MSSA Staphylococcus aureus GEEAN (Preliminary) KB (Preliminary) Ampicillin Resistant * Cefoxitin [...] regurgitation. Tricuspid Valve: The leaflets appear thickened. [place] TV endocarditis post valve repair with a DeVega Procedure at [facility] (2019). There appears to be restricted [...] is no recent study available for direct [id number] comparison. 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 Ptalso with h/o TV IE in 2019 for which he had TV leaflet repair and De Lucas procedure at [facility] ([place]). Pt was incarcerated at the time, and [...] inage in several years. Pt seen at [facility] 02/24/2025. 02/24/2025 CT showed 2.4x2.1x2.6cm [...] leaflet repair and De Lucas procedure at [facility] ([place]) SUBSTANCE ABUSE: Illicit: H/o IVDA, polysubstance abuse. [...] Note Alex Amaya 34 y.o. male CSN: [id number] Admission: 02/25/2025 2:42 AM Primary Problem: Sternal wound dehiscence, initial encounter PCP: Pcp, No Emergency Contact: Extended Emergency Contact Information Primary Emergency Contact: Mary Lemus Mobile Relation: Significant Other Preferred language: Serbian Manager Safe needed? No Insurance: Primary Visit Coverage Payer Plan Sponsor Code Group Number Group Name AETNA AETNA OPEN CHOICE ACCESS [id number] Primary Visit Coverage Subscriber Subscriber ID Subscriber Name Subscriber SSN Subscriber Address [id number] Alex Amaya [id number] [place] [id number] Secondary Visit Coverage Payer Plan Sponsor Code Group Number Group Name [facility] MEDICAID [employer] MEDICAID Secondary Visit Coverage Subscriber Subscriber ID Subscriber Name Subscriber SSN Subscriber Address [id number] Alex Amaya [id number] [place] [address] Patient information: Primary Caregiver: Self Accompanied by/Relationship: Mary Lemus ([phone]) Support System: Immediate family Daily Living Activities: Functional Status: Independent Living Arrangements: Spouse/Significant other, Children (5 y.o. child) Type of Residence: Private residence, Single Level (1-2 SACHIN) [address] [address] Current DME: Equipment Currently Used at Home: [...] Dialysis Services: N/A Living Will/Advance Directive/Power of Customer Engineering Specialist /Guardian: Have you reviewed your Advance Directive [...] pt accompanied by significant other Mary Mariah ([phone]). Pt does not have a POA/LW/AD. Pt [...] DC. Pt has never worked with an TUTORING MANAGER and has never stayed anywhere overnight for physical rehab. Pt prefers [facility] in [place] as his pharmacy. Pt confirms insurance listed [...] sounds present and normoactivex 4 quadrants SKIN: [place], warm, and dry. No rash, sores, or [...] Post-Operative Pain - continue home Suboxone - [facility] Obesity (POA) - BMI 32 - complicates all aspects of care Plan: - continue IV abx per ID - continue wound vac - TTE completed this morning, read pending Cardiothoracic Surgery [phone] * Discharge Instr - Other Orders - Donna Rosario RN - 02/27/2025 10:28 AM EDT Please arrive 30 minutes early for your appointment with Dr. Daniel Prior to your appointment, go to the radiology department on the 1st floor of the [facility] near [facility] for a chest x-ray. Then go [...] your incisions. Do NOT lift, push or pot puller 5 pounds for six weeks. Do [...] Donna Rosario CT Surgery Nurse Navigator at [phone] Wednesday through Wednesday 7am- 3:30pm [facility] [phone] after 3:30 pm, weekends and holidays - ask for the CT surgeon concrete precast moulder. * Progress Notes - Alejandro Sandoval PA [...] sounds present and normoactivex 4 quadrants SKIN: [place], warm, and dry. No rash, sores, or lesions. NEURO: AAOx4. Motor function intact and no focal deficits. PSYCH: Mood and affect congruent and appropriate to situation. Assessment: Aelx Amaya is a 34 year old male [...] Post-Operative Pain - continue home Suboxone - [facility] Obesity (POA) - BMI 32 - complicates all aspects of care Plan: - continue IV abx per ID - continue wound vac Cardiothoracic Surgery [phone] * Anesthesia PACU Signout - Umberto Davis [...] CORONARY ARTERY BYPASS GRAFTING: Date: 02/26/2025 Location: [place] Name: Alex Amaya, : 1990, Pre-operative [...] suboxone, infectious endocarditisrequiring tricuspid valve repair in [place] in 2019. He states that he had [...] midnight. Pacheco Ocasio MD Cardiothoracic Surgery Pager: [phone] * Significant Event - Alejandro Sandoval PA - 02/25/2025 1:35 PM EDT Patient seen and evaluated with Dr Daniel. Will go to OR tomorrow for chest washout and removal of sternal plates with Dr Daniel. Pre-op orders placed. Consent obtained and placed in paper chart. NPOp [place]. CT Surgery [phone] * Consults - Kinga Mc MD - [...] valve repair with a DeVega Procedure at [facility] (2019), multiple I&Ds of superior sternotomy site most recent in 2021, and chronic drainage of sternotomy (last episode 3 months prior) who presents as a transfer from [facility] with new and worsened superior sternotomy drainage. MDET team were consulted to provide recommendations on therapy and management. Mr. Amaya first noted repeat drainage on 02/19/25, associated with fevers, chills, and swelling. He went to a local ED and was discharged. Given no change he then went to [facility]. CT Chest showed a fluid collection anterior to the sternum and was transferred to for ID follow up and CT surgery evaluation. Upon arrival to on 02/25 blood cultures were taken and have NGTD. Wound cultures have a GS positive for GPC in pairs and clusters. He was started on Vancomycin and Zosyn, [facility]. Additional pertinent admission workup includes Hep C antibodypositivity, HIV non-reactive, CRP of 282.5, and an ESR of 65. When spoken to Mr. Amaya endorses persistent drainage from his sternal wound. In the room therewas considerable drainage on his dressing, which ID team changed. He endorsed the above history anddescribes following with a leather patcher Dr. Park. Social: Was recently incarcerated until [...] Value Units Date/Time Blood Culture (Aerobic/Anaerobet Set) [[id number]] Collected: 02/25/25317 Order Status: Completed Specimen: Blood, Venous Updated: 02/25/25 0607 Culture Culture in lab Blood Culture (Aerobic/Anaerobet Set) [[id number]] Collected: 02/25/25317 Order Status: Completed Specimen: Blood, Venous Updated: 02/25/25 0601 Culture Culture in lab Wound Culture and Gram Stain [[id number]] (Abnormal) Collected: 02/25/25 8476 Order Status: Completed Specimen: Swab from Cutaneous skin (specify site) Updated: 05/25/25 0524 Gram Stain Result Numerous Polymorphonuclear leukocytes Numerous Gram positive cocci in pairs Numerous Gram positive cocci in clusters Antibiotics: Vancomycin 02/25-P Zosyn 02/25-P Assessment: Alex Amaya is a 34 y.o. 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 MDET team were consulted to provide recommendations on therapy and management. Cultures have not grown any specific organisms at this time, however GS with GPC in pairs and clusters. Agree with washout tomorrow and would obtain cultures. At this time can continue antibiotic therapy. # Hx of nTV ie s/p DeVega Procedure at [facility] (2019) # Sternotomy Site SSTI # [...] ID will follow. Sherman Gonzáles MD Pager: [phone] I spent greater than 110 minutes performing the following components of the encounter (on the day of the encounter): reviewing history, examining the patient, reviewing imaging and/or labs, echo, ECGand/or other imaging results, counseling the patient and family/caregiver, communicating with otherhealth patient care manager. The patient is receiving directed antibiotic therapy which requires monitoring of daily labs for toxicities. Greater than 50% of the time spent on the encounter was [id number] providing direct patient care, counseling for the [...] as appropriate. Thank you, Marcos Hopper, PharmD, [facility] Clinical Staff Pharmacist * H&P - [...] suboxone, infectious endocarditisrequiring tricuspid valve repair in [place] in 2019. He states that he had [...] got worse so he went to [facility] where he was found to have [...] Tobacco Use: Medium Risk (01/09/2025) Received from [facility] Patient History Smoking Tobacco Use: Former Smokeless [...] suboxone, infectious endocarditisrequiring tricuspid valve repair in [place] in 2019. He states that he had [...] got worse so he went to [facility] where he was found to have [...] endocarditis requiring open heart surgery at [facility] (2019) c/b multiple episodes of medial [...] got worse so he went to [facility] where he was found to have the chest abscess. He was transferred to [facility] for evaluation with CT surgery and ID History provided by: Patient and medical records diplomatic interpreter used: No Patient History Medical History[1] Surgical [...] [JG] 0314 Reviewed of records from [facility], given 1 g ceftriaxone at 19:47. [...] Prescriptions None Disposition Admit Admitting/Attending Physician: SHERLYN DANEIL [[id number]] Provider Care Team: CVT CARDIAC SURGERY [255] Are they the primary team?: Yes [1] - Virginia Lewis MD Internal Medicine, PGY-2 [phone] or via [employer] chat [1] Past Medical History: Diagnosis Date [...] Description 04/10/2025 8:30 AM EDT Office Visit [facility] [address] [place], [place] [phone] Keny Chin MD [address] [facility] [address] [place], [place] Pending Results Name Type Priority Associated [...] Roper RN Authorized by: Sherlyn Daniel MD [place] Protocol: Verbal consent obtained?: Yes Written consent [...] vein Patient position: Flat Catheter Lot #: [id number] Catheter client representative: [employer] Catheter placed: Single lumen Catheter size: 4 [...] LAB HEMATOLOGY METHOD 03/03/2025 3:14 AM EDT [facility] Platelet Estimate Platelet smear estimate consistent with automated count LAB HEMATOLOGY METHOD 03/03/2025 3:14 AM EDT [facility] Blood Venous blood specimen / Unknown Venipuncture / Unknown 03/03/2025 2:11 AM EDT 03/03/2025 2:25 AM EDT us Kelsie Carty APRN LAB BLOOD ORDERABLES Final R esult [facility] [address] [place] [address] * (ABNORMAL) Manual Differential (03/03/2025 2:11 AM EDT) Blasts % 0 % LAB HEMATOLOGY METHOD 03/03/2025 3:14 AM EDT [facility] Promyelocytes % 0 % LAB HEMATOLOGY METHOD 03/03/2025 3:14 AM EDT [facility] Myelocytes % 2 % LAB HEMATOLOGY METHOD 03/03/2025 3:14 AM EDT [facility] Metamyelocytes % 3 % LAB HEMATOLOGY METHOD 03/03/2025 3:14 AM EDT [facility] Neutrophils % 75 % LAB HEMATOLOGY METHOD 03/03/2025 3:14 AM EDT [facility] Lymphocytes % 14 % LAB HEMATOLOGY METHOD 03/03/2025 3:14 AM EDT [facility] Reactive Lymphocytes % 0 % LAB HEMATOLOGY METHOD 03/03/2025 3:14 AM EDT [facility] Monocytes % 3 % LAB HEMATOLOGY METHOD 03/03/2025 3:14 AM EDT [facility] Eosinophils % 3 % LAB HEMATOLOGY METHOD 03/03/2025 3:14 AM EDT [facility] Basophils % 0 % LAB HEMATOLOGY METHOD 03/03/2025 3:14 AM EDT [facility] Blasts Absolute 0.00 10*3/UL LAB HEMATOLOGY METHOD 03/03/2025 3:14 AM EDT [facility] Promyelocytes Absolute 0.00 10*3/uL LAB HEMATOLOGY METHOD 03/03/2025 3:14 AM EDT [facility] Myelocytes Absolute 0.21 10*3/uL LAB HEMATOLOGY METHOD 03/03/2025 3:14 AM EDT [facility] Metamyelocytes Absolute 0.31 10*3/uL LAB HEMATOLOGY METHOD 03/03/2025 3:14 AM EDT [facility] Neutrophils Absolute 7.72(H) 1.60 - 6.10 10*3/uL LAB HEMATOLOGY METHOD 03/03/2025 3:14 AM EDT [facility] Lymphocytes Absolute 1.44 1.20 - 3.90 10*3/uL LAB HEMATOLOGY METHOD 03/03/2025 3:14 AM EDT [facility] Reactive Lymphocytes Absolute 0.00 10*3/uL LAB HEMATOLOGY METHOD 03/03/2025 3:14 AM EDT [facility] Monocytes Absolute 0.31 0.30 - 0.90 10*3/uL LAB HEMATOLOGY METHOD 03/03/2025 3:14 AM EDT [facility] Eosinophils Absolute 0.31 0.00 - 0.50 10*3/uL LAB HEMATOLOGY METHOD 03/03/2025 3:14 AM EDT [facility] Basophils Absolute 0.00 0.00 - 0.10 10*3/uL LAB HEMATOLOGY METHOD 03/03/2025 3:14 AM EDT [facility] Blood Venous blood specimen / Unknown Venipuncture / Unknown 03/03/2025 2:11 AM EDT 03/03/2025 2:25 AM EDT us Kelsie Carty APRN LAB BLOOD ORDERABLES Final R esult [facility] [address] [place] [address] * (ABNORMAL) Hepatic function panel (03/03/2025 2:11 AM EDT) Conjugated Bilirubin, Plasma <0.2 <=0.3 mg/dL 03/03/2025 2:55 AM EDT [facility] Comment:Hemolyzed, result ma y be falsely decreased. Alkaline Phosphatase, Plasma 99 40 - 115 U/L 03/03/2025 2:55 AM EDT [facility] Total Bilirubin, Plasma 0.3 0.2 - 1.1 mg/dL 03/03/2025 2:55 AM EDT [facility] Albumin, Plasma 3.3(L) 3.5 - 5.2 g/dL 03/03/2025 2:55 AM EDT [facility] Total Protein 7.9 6.3 - 7.9 g/dL 03/03/2025 2:55 AM EDT [facility] ALT, Plasma 36 10 - 50 U/L 03/03/2025 2:55 AM EDT [facility] AST, Plasma 46 10 - 50 U/L 03/03/2025 2:55 AM EDT [facility] Comment:Hemolyzed, result ma y be falsely increased. Blood Venous blood specimen / Unknown Venipuncture / Unknown 03/03/2025 2:11 AM EDT 03/03/2025 2:23 AM EDT Kelsie Carty APRN LAB BLOOD ORDERABLES Final R esult [facility] [address] [place] [address] * Magnesium, Plasma (03/03/2025 2:11 AM EDT) Magnesium, Plasma 2.2 1.9 - 2.4 mg/dL 03/03/2025 2:55 AM EDT [facility] Blood Venous blood specimen / Unknown Venipuncture / Unknown 03/03/2025 2:11 AM EDT 03/03/2025 2:23 AM EDT us Kelsie Gilbert Carty SALES REPRESENTATIVE LAB BLOOD ORDERABLES Final R esult [facility] [address] [place] [address] * CBC and Differential (03/03/2025 2:11 AM EDT) WBC Count 10.29 3.70 - 10.30 10*3/uL LAB HEMATOLOGY METHOD 03/03/2025 3:15 AM EDT [facility] RBC Count 5.48 4.60 - 6.10 10*6/uL LAB HEMATOLOGY METHOD 03/03/2025 3:15 AM EDT [facility] HGB 15.6 13.7 - 17.5 g/dL LAB HEMATOLOGY METHOD 03/03/2025 3:15 AM EDT [facility] HCT 47.6 40.0 - 51.0 % LAB HEMATOLOGY METHOD 03/03/2025 3:15 AM EDT [facility] Platelet Count 329 155 - 369 10*3/uL LAB HEMATOLOGY METHOD 03/03/2025 3:15 AM EDT [facility] MCV 87 79 - 98 fL LAB HEMATOLOGY METHOD 03/03/2025 3:15 AM EDT [facility] MCH 28.5 26.0 - 32.0 pg LAB HEMATOLOGY METHOD 03/03/2025 3:15 AM EDT [facility] MCHC 32.8 30.7 - 35.5 g/dL LAB HEMATOLOGY METHOD 03/03/2025 3:15 AM EDT [facility] RDW 12.9 11.5 - 14.5 % LAB HEMATOLOGY METHOD 03/03/2025 3:15 AM EDT [facility] MPV 9.1 8.8 - 12.5 fL LAB HEMATOLOGY METHOD 03/03/2025 3:15 AM EDT [facility] nRBC 0.0 <=0.0 per 100 WBCs LAB HEMATOLOGY METHOD 03/03/2025 3:15 AM EDT [facility] Differential Type Manual LAB HEMATOLOGY METHOD 03/03/2025 3:15 AM EDT [facility] Blood Venous blood specimen / Unknown Venipuncture / Unknown 03/03/2025 2:11 AM EDT 03/03/2025 2:25 AM EDT Narrative [facility] - 03/03/2025 3:15 AM EDT [...] ORDERABLES Final R esult Performing Organization Address [facility] [place] [address] * Blood Culture (Aerobic/Anaerobet Set) (03/03/2025 2:11 AM EDT) Culture No growth at day 5 GEENA 03/08/2025 4:02 AM EDT [facility] Blood Structure of antecubital vein / Unknown Venipuncture / Unknown 03/03/2025 2:11 AM EDT 03/03/2025 3:04 AM EDT [facility] - 03/08/2025 4:02 AM EDT Low blood volume submitted, results may be compromised Kelsie Carty APRN LAB MICROBIOLOGY - GENERAL O RDERABLES Final Result Performing Organization Address City/[facility]/[place] [address] * Blood Culture (Aerobic/Anaerobet Set) (03/03/2025 2:11 AM EDT) Culture No growth at day 5 GEENA 03/08/2025 4:02 AM EDT [facility] Blood Venous blood specimen / Unknown Venipuncture / Unknown 03/03/2025 2:11 AM EDT 03/03/2025 3:03 AM EDT us Kelsie Gilbert Carty SALES REPRESENTATIVE LAB MICROBIOLOGY - GENERAL O RDERABLES Final Result [facility] [address] [place] [address] * (ABNORMAL) CBC W/O Differential (03/01/2025 3:55 AM EDT) Pathologist [facility] WBC Count 7.81 3.70 - 10.30 10*3/uL LAB HEMATOLOGY METHOD 03/01/2025 4:12 AM EDT [facility] RBC Count 4.51(L) 4.60 - 6.10 10*6/uL LAB HEMATOLOGY METHOD 03/01/2025 4:12 AM EDT [facility] HGB 12.8(L) 13.7 - 17.5 g/dL LAB HEMATOLOGY METHOD 03/01/2025 4:12 AM EDT [facility] HCT 40.5 40.0 - 51.0 % LAB HEMATOLOGY METHOD 03/01/2025 4:12 AM EDT [facility] Platelet Count 292 155 - 369 10*3/uL LAB HEMATOLOGY METHOD 03/01/2025 4:12 AM EDT [facility] MCV 90 79 - 98 fL LAB HEMATOLOGY METHOD 03/01/2025 4:12 AM EDT [facility] MCH 28.4 26.0 - 32.0 pg LAB HEMATOLOGY METHOD 03/01/2025 4:12 AM EDT [facility] MCHC 31.6 30.7 - 35.5 g/dL LAB HEMATOLOGY METHOD 03/01/2025 4:12 AM EDT [facility] RDW 13.0 11.5 - 14.5 % LAB HEMATOLOGY METHOD 03/01/2025 4:12 AM EDT [facility] MPV 9.5 8.8 - 12.5 fL LAB HEMATOLOGY METHOD 03/01/2025 4:12 AM EDT [facility] nRBC 0.0 <=0.0 per 100 WBCs LAB HEMATOLOGY METHOD 03/01/2025 4:12 AM EDT [facility] Blood Venous blood specimen / Unknown Venipuncture / Unknown 03/01/2025 3:55 AM EDT 03/01/2025 4:04 AM EDT us Catalina Cuba MD LAB BLOOD ORDERABLES Final Result [facility] [address] [place] [address] * (ABNORMAL) Basic metabolic panel (03/01/2025 3:55 AM EDT) Glucose, Plasma 94 74 - 99 mg/dL 03/01/2025 4:37 AM EDT [facility] BUN, Plasma 14 7 - 21 mg/dL 03/01/2025 4:37 AM EDT [facility] Creatinine, Plasma 0.92 0.70 - 1.20 mg/dL 03/01/2025 4:37 AM EDT [facility] BUN/Creatinine Ratio 15 03/01/2025 4:37 AM EDT [facility] Sodium, Plasma 140 136 - 145 mmol/L 03/01/2025 4:37 AM EDT [facility] Potassium, Plasma 4.4 3.6 - 4.9 mmol/L 03/01/2025 4:37 AM EDT [facility] Chloride, Plasma 105 97 - 107 mmol/L 03/01/2025 4:37 AM EDT [facility] CO2, Plasma 25 22 - 29 mmol/L 03/01/2025 4:37 AM EDT [facility] Anion Gap 10 6 - 16 mmol/L 03/01/2025 4:37 AM EDT [facility] Total Calcium, Plasma 8.8(L) 8.9 - 10.2 mg/dL 03/01/2025 4:37 AM EDT [facility] eGFRcr 110.6 mL/min/1.7 3m*2 03/01/2025 4:37 AM EDT [facility] Comment:Reported eGFRcr in m L/min/1.73m2 is based the CKD-EPI 2020 equation that does not use a race coefficient. Blood Venous blood specimen / Unknown Venipuncture / Unknown 03/01/2025 3:55 AM EDT 03/01/2025 4:04 AM EDT us Catalina Cuba MD LAB BLOOD ORDERABLES Final Result Performing Organization Address City/[facility]/ZIP Co de Phone Number [facility] [address] [place] [address] * Blood Culture (Aerobic/Anaerobet Set) (03/01/2025 3:45 AM EDT) Culture No growth at day 5 GEENA 03/06/2025 5:01 AM EDT [facility] Blood Venous blood specimen / Unknown Venipuncture / Unknown 03/01/2025 3:45 AM EDT 03/01/2025 4:45 AM EDT us Kelsie Carty APRN LAB MICROBIOLOGY - GENERAL O RDERABLES Final Result Performing Organization Address City/[facility]/ZIP Co de Phone Number [facility] [address] [place] [address] * Blood Culture (Aerobic/Anaerobet Set) (03/01/2025 3:30 AM EDT) Culture No growth at day 5 GEENA 03/06/2025 5:01 AM EDT [facility] Blood Venous blood specimen / Unknown Venipuncture / Unknown 03/01/2025 3:30 AM EDT 03/01/2025 4:45 AM EDT us Kelsie Carty APRN LAB MICROBIOLOGY - GENERAL O RDERABLES Final Result [facility] [address] [place] [address] * Magnesium (02/28/2025 4:03 AM EDT) Magnesium, Plasma 2.2 1.9 - 2.4 mg/dL 02/28/2025 4:37 AM EDT [facility] Blood Venous blood specimen / Unknown Venipuncture / Unknown 02/28/2025 4:03 AM EDT 02/28/2025 4:10 AM EDT us Sherlyn Daniel MD LAB BLOOD ORDERABLES Final Res ult [facility] [address] [place] [address] * (ABNORMAL) CBC W/O Differential (02/28/2025 4:03 AM EDT) WBC Count 7.50 3.70 - 10.30 10*3/uL LAB HEMATOLOGY METHOD 02/28/2025 4:26 AM EDT [facility] RBC Count 4.59(L) 4.60 - 6.10 10*6/uL LAB HEMATOLOGY METHOD 02/28/2025 4:26 AM EDT [facility] HGB 13.1(L) 13.7 - 17.5 g/dL LAB HEMATOLOGY METHOD 02/28/2025 4:26 AM EDT [facility] HCT 40.6 40.0 - 51.0 % LAB HEMATOLOGY METHOD 02/28/2025 4:26 AM EDT [facility] Platelet Count 252 155 - 369 10*3/uL LAB HEMATOLOGY METHOD 02/28/2025 4:26 AM EDT [facility] MCV 89 79 - 98 fL LAB HEMATOLOGY METHOD 02/28/2025 4:26 AM EDT [facility] MCH 28.5 26.0 - 32.0 pg LAB HEMATOLOGY METHOD 02/28/2025 4:26 AM EDT [facility] MCHC 32.3 30.7 - 35.5 g/dL LAB HEMATOLOGY METHOD 02/28/2025 4:26 AM EDT [facility] RDW 13.2 11.5 - 14.5 % LAB HEMATOLOGY METHOD 02/28/2025 4:26 AM EDT [facility] MPV 9.8 8.8 - 12.5 fL LAB HEMATOLOGY METHOD 02/28/2025 4:26 AM EDT [facility] nRBC 0.0 <=0.0 per 100 WBCs LAB HEMATOLOGY METHOD 02/28/2025 4:26 AM EDT [facility] Blood Venous blood specimen / Unknown Venipuncture / Unknown 02/28/2025 4:03 AM EDT 02/28/2025 4:12 AM EDT us Sherlyn Daniel MD LAB BLOOD ORDERABLES Final Res ult [facility] [address] [place] [address] * (ABNORMAL) Basic metabolic panel (02/28/2025 4:03 AM EDT) Pathologist [facility] Glucose, Plasma 110(H) 74 - 99 mg/dL 02/28/2025 4:37 AM EDT [facility] BUN, Plasma 18 7 - 21 mg/dL 02/28/2025 4:37 AM EDT [facility] Creatinine, Plasma 1.15 0.70 - 1.20 mg/dL 02/28/2025 4:37 AM EDT [facility] BUN/Creatinine Ratio 16 02/28/2025 4:37 AM EDT [facility] Sodium, Plasma 136 136 - 145 mmol/L 02/28/2025 4:37 AM EDT [facility] Potassium, Plasma 3.8 3.6 - 4.9 mmol/L 02/28/2025 4:37 AM EDT [facility] Chloride, Plasma 104 97 - 107 mmol/L 02/28/2025 4:37 AM EDT [facility] CO2, Plasma 24 22 - 29 mmol/L 02/28/2025 4:37 AM EDT [facility] Anion Gap 8 6 - 16 mmol/L 02/28/2025 4:37 AM EDT [facility] Total Calcium, Plasma 8.6(L) 8.9 - 10.2 mg/dL 02/28/2025 4:37 AM EDT [facility] eGFRcr 84.6 mL/min/1.7 3m*2 02/28/2025 4:37 AM EDT [facility] Comment:Reported eGFRcr in m L/min/1.73m2 is based the CKD-EPI 2020 equation that does not use a race coefficient. Blood Venous blood specimen / Unknown Venipuncture / Unknown 02/28/2025 4:03 AM EDT 02/28/2025 4:10 AM EDT us Sherlyn Daniel MD LAB BLOOD ORDERABLES Final Res ult [facility] [address] [place] [address] * PERIPHERAL IV (SMARTFORM LINK) (02/27/2025 6:13 [...] regurgitation. Tricuspid Valve: The leaflets appear thickened. [place] endocarditis post valve repair with a DeVega Procedure at [facility] (2019). There appears to be restricted [...] is no recent study available for direct [id number] comparison. Left Ventricle Based on the linear [...] stenosis. Tricuspid Valve The leaflets appear thickened. [place] endocarditis post valve repair with a DeVega Procedure at [facility] (2019). There appears to be restricted [...] is no recent study available for direct [id number] comparison. Wall Scoring Baseline Score Index: 1.00 [...] - 40.0 ug/mL 02/27/2025 11:21 AM EDT [facility] Blood Venous blood specimen / Unknown Venipuncture / Unknown 02/27/2025 10:46 AM EDT 02/27/2025 10:52 AM EDT Narrative [facility] - 02/27/2025 11:21 AM EDT Therapeutic Peak level: 20-40ug/mL Supra-therapeutic Peak level: >40 ug/mL us Alejandro AARON LAB BLOOD ORDERABLES Final R esult [facility] [address] [place] [address] * (ABNORMAL) Lipid panel (02/27/2025 4:33 AM EDT) Cholesterol, Plasma 108 <200 mg/dL 02/27/2025 5:14 AM EDT [facility] Comment: Cholesterol Reference Range (age >17 years): Desirable <200 mg/dL Borderline 200 to 239 mg/dL Undesirable >239 mg/dL HDL 28(L) >=40 mg/dL 02/27/2025 5:14 AM EDT [facility] Comment: HDL Cholesterol Reference Ranges (age >17 years): Female, acceptable > or = 50 mg/dL Male, acceptable > or = 40 mg/dL Triglycerides, Plasma 94 <150 mg/dL 02/27/2025 5:14 AM EDT [facility] Comment: Triglyceride Reference Range (age >17 years): Desirable: <150 mg/dL Borderline high: 150 to 199 mg/dL High: 200 to 499 mg/dL Very high: >499 mg/dL Increased risk of pancreatitis: >1000 mg/dL Cholesterol/HDL Ratio 4 02/27/2025 5:14 AM EDT [facility] LDL, Calculated 62 <100 mg/dL 5:14 AM EDT [facility] Comment: LDL Cholesterol Reference Range [...] 12 hours? No 02/27/2025 5:14 AM EDT [facility] Blood Venous blood specimen / Unknown Venipuncture / Unknown 02/27/2025 4:33 AM EDT 02/27/2025 4:42 AM EDT Alejandro AARON LAB BLOOD ORDERABLES Final R esult Performing Organization Address City/[facility]/ZIP Co de Phone Number [facility] [address] [place] [address] * Hemoglobin A1c (02/27/2025 4:33 AM EDT) Hemoglobin A1c 5.4 <5.7 % 02/27/2025 7:06 AM EDT [facility] Blood Venous blood specimen / Unknown Venipuncture / Unknown 02/27/2025 4:33 AM EDT 02/27/2025 4:45 AM EDT Narrative [facility] - 02/27/2025 7:06 AM EDT HA1C Interpretive Data: Diagnosis of Diabetes: Diabetic > or = 6.5% Pre-diabetic 5.7 to 6.4% Non-diabetic < or = 5.6% Glycemic Targets for Type I and Type II Diabetics: Non- Adults <7.0% Adults <6.0% Children and Adolescents <7.5% Source: [place] [employer]. Standards of medical care in diabetes,2017. Diabetes Care.2017:40 (suppl 1):S1-S135. Alejandro AARON LAB BLOOD ORDERABLES Final R esult Performing Organization Address [facility] Co de Phone Number [facility] [address] [place] [address] * (ABNORMAL) Basic metabolic panel (02/27/2025 4:33 AM EDT) Glucose, Plasma 128(H) 74 - 99 mg/dL 02/27/2025 5:14 AM EDT [facility] BUN, Plasma 18 7 - 21 mg/dL 02/27/2025 5:14 AM EDT [facility] Creatinine, Plasma 1.01 0.70 - 1.20 mg/dL 02/27/2025 5:14 AM EDT [facility] BUN/Creatinine Ratio 18 02/27/2025 5:14 AM EDT [facility] Sodium, Plasma 135(L) 136 - 145 mmol/L 02/27/2025 5:14 AM EDT [facility] Potassium, Plasma 4.6 3.6 - 4.9 mmol/L 02/27/2025 5:14 AM EDT [facility] Chloride, Plasma 101 97 - 107 mmol/L 02/27/2025 5:14 AM EDT [facility] CO2, Plasma 24 22 - 29 mmol/L 02/27/2025 5:14 AM EDT [facility] Anion Gap 10 6 - 16 mmol/L 02/27/2025 5:14 AM EDT [facility] Total Calcium, Plasma 9.2 8.9 - 10.2 mg/dL 02/27/2025 5:14 AM EDT [facility] eGFRcr 98.8 mL/min/1.7 3m*2 02/27/2025 5:14 AM EDT [facility] Comment:Reported eGFRcr in m L/min/1.73m2 is based the CKD-EPI 2020 equation that does not use a race coefficient. Blood Venous blood specimen / Unknown Venipuncture / Unknown 02/27/2025 4:33 AM EDT 02/27/2025 4:42 AM EDT us Sherlyn Daniel MD LAB BLOOD ORDERABLES Final Res ult [facility] [address] [place] [address] * (ABNORMAL) CBC W/O Differential (02/27/2025 4:33 AM EDT) WBC Count 9.62 3.70 - 10.30 10*3/uL LAB HEMATOLOGY METHOD 02/27/2025 4:53 AM EDT [facility] RBC Count 4.58(L) 4.60 - 6.10 10*6/uL LAB HEMATOLOGY METHOD 02/27/2025 4:53 AM EDT [facility] HGB 13.1(L) 13.7 - 17.5 g/dL LAB HEMATOLOGY METHOD 02/27/2025 4:53 AM EDT [facility] HCT 40.8 40.0 - 51.0 % LAB HEMATOLOGY METHOD 02/27/2025 4:53 AM EDT [facility] Platelet Count 247 155 - 369 10*3/uL LAB HEMATOLOGY METHOD 02/27/2025 4:53 AM EDT [facility] MCV 89 79 - 98 fL LAB HEMATOLOGY METHOD 02/27/2025 4:53 AM EDT [facility] MCH 28.6 26.0 - 32.0 pg LAB HEMATOLOGY METHOD 02/27/2025 4:53 AM EDT [facility] MCHC 32.1 30.7 - 35.5 g/dL LAB HEMATOLOGY METHOD 02/27/2025 4:53 AM EDT [facility] RDW 13.1 11.5 - 14.5 % LAB HEMATOLOGY METHOD 02/27/2025 4:53 AM EDT [facility] MPV 10.4 8.8 - 12.5 fL LAB HEMATOLOGY METHOD 02/27/2025 4:53 AM EDT [facility] nRBC 0.0 <=0.0 per 100 WBCs LAB HEMATOLOGY METHOD 02/27/2025 4:53 AM EDT [facility] Blood Venous blood specimen / Unknown Venipuncture / Unknown 02/27/2025 4:33 AM EDT 02/27/2025 4:45 AM EDT us Sherlyn Daniel MD LAB BLOOD ORDERABLES Final Res ult [facility] [address] [place] [address] * Blood Culture (Aerobic/Anaerobet Set) (02/27/2025 4:30 AM EDT) Culture No growth at day 5 GEENA 03/04/2025 5:01 AM EDT [facility] Blood Venous blood specimen / Unknown Venipuncture / Unknown 02/27/2025 4:30 AM EDT 02/27/2025 4:47 AM EDT Sherman Gonzáles MD LAB MICROBIOLOGY - GENERAL O RDERABLES Final Result Performing Organization Address [facility] [place] [address] * Blood Culture (Aerobic/Anaerobet Set) (02/27/2025 4:00 AM EDT) Culture No growth at day 5 GEENA 03/04/2025 5:01 AM EDT [facility] Blood Venous blood specimen / Unknown Venipuncture / Unknown 02/27/2025 4:00 AM EDT 02/27/2025 4:47 AM EDT Sherman Gonzáles MD LAB MICROBIOLOGY - GENERAL O RDERABLES Final Result Performing Organization Address [facility] [place] [address] * XR Chest 1 View (02/27/2025 2:37 [...] at 4 Weeks 03/27/2025 8:06 AM EDT [facility] DANY Source not suitable for smear 03/27/2025 8:06 AM EDT [facility] Foreign Body Bone structure of sternum / Unknown 02/26/2025 10:10 AM EDT 02/26/2025 11:21 AM EDT Comment:Pre-op diagnosis: Chest wall abscess [L02.213] Sherlyn Daniel MD LAB MICROBIOLOGY - GENERAL ORD ERABLES Final Result [facility] [address] [place] [address] * (ABNORMAL) Routine Culture and Gram Stain (02/26/2025 10:10 AM EDT) Culture Light Growth 03/01/2025 3:23 PM EDT [facility] Culture Staphylococcus aureus(A) GEENA 03/01/2025 3:23 PM EDT [facility] Foreign Body Bone structure of [...] ORD ERABLES Final Result Performing Organization Address City/[facility] Co de Phone Number [facility] [address] [place] [address] * Anaerobic Culture (02/26/2025 10:10 AM EDT) Culture No anaerobes isolated 03/03/2025 5:50 AM EDT [facility] Foreign Body Bone structure of sternum / Unknown 02/26/2025 10:10 AM EDT 02/26/2025 11:21 AM EDT Comment:Pre-op diagnosis: Chest wall abscess [L02.213] Sherlyn Daniel MD LAB MICROBIOLOGY - GENERAL ORD ERABLES Final Result Performing Organization Address [facility] Co de Phone Number [facility] [address] [place] [address] * (ABNORMAL) POCT arterial blood gas gem (02/26/2025 9:42 AM EDT) pH, Arterial 7.42 7.35 - 7.45 02/26/2025 9:[address] [facility] pCO2, Arterial 41 32 - 45 mm Hg 02/26/2025 9:[address] [facility] pO2, Arterial 105 83 - 108 mm Hg 02/26/2025 9:44 AM [facility] SO2, Arterial 99(H) 94 - 98 % 02/26/2025 9:44 AM [facility] Base Excess, Arterial 1.9 -2 - 3 mmol/L 02/26/2025 9:44 AM [facility] HCO3, Arterial 26.6(H) 22 - 26 mmol/L 02/26/2025 9:44 AM [facility] Total Hemoglobin, Arterial, Whole Blood 13.6(L) 13.7 - 17.5 g/dL 02/26/2025 9:44 AM [facility] Hematocrit, Arterial 41.0 40 - 51.0 % 02/26/2025 9:44 AM [facility] Sodium, Arterial 135(L) 136 - 145 mmol/L 02/26/2025 9:44 AM [facility] Potassium, Arterial 4.1 3.6 - 4.9 mmol/L 02/26/2025 9:44 AM [facility] Chloride, Whole Blood 104 97 - 107 mmol/L 02/26/2025 9:44 AM [facility] Glucose, Arterial 106(H) 74 - 99 mg/dL 02/26/2025 9:44 AM [facility] Ionized Calcium, Arterial 4.7 4.6 - 5.1 mg/dL 02/26/2025 9:44 AM [facility] Lactate, Arterial 0.6 0.5 - 1.6 mmol/L 02/26/2025 9:44 AM [facility] Body Temperature 37.0 Celsius 02/26/2025 9:44 AM [facility] pH, Temp Corrected, Arterial 7.42 7.35 - 7.45 02/26/2025 9:44 AM [facility] pCO2, Temp Corrected, Arterial 41 32 - 45 mm Hg 02/26/2025 9:44 AM [facility] pO2, Temp Corrected, Arterial 105 83 - 108 mm Hg 02/26/2025 9:44 AM [facility] Rn Assessment ID Carina Jordan 02/26/2025 9:44 AM [facility] Blood, Arterial Whole blood specimen / Unknown 02/26/2025 9:42 AM EDT 02/26/2025 9:44 AM EDT Sherlyn Daniel MD LAB POINT OF CARE TE ST DOCKED DEVICE UNSOLICITED RESULTS Final Result Performing Organization Address City/[facility]/ZIP Co de Phone Number [facility] [address] [place] [address] * (ABNORMAL) Abscess Culture and Gram Stain (02/26/2025 9:34 AM EDT) Culture Light Growth 03/01/2025 3:22 PM EDT [facility] Culture Staphylococcus aureus(A) GEENA 03/01/2025 3:22 PM EDT [facility] Comment:The organism value f or this result has been updated. These results have been appended to the previously preliminary verified report. Gram Stain Result Few Polymorphonuclear leukocytes(A) 03/01/2025 3:22 PM EDT [facility] Gram Stain Result Few Gram positive cocci in pairs(A) 03/01/2025 3:22 PM EDT [facility] Swab Bone structure of sternum [...] MICROBIOLOGY - GENERAL ORD ERABLES Final Result [facility] [address] [place] [address] * Fungal Culture, Routine (02/26/2025 9:34 AM EDT) Culture No Fungal Growth at 1 Week 03/06/2025 9:03 AM EDT [facility] Swab Bone structure of sternum / Unknown 02/26/2025 9:34 AM EDT 02/26/2025 11:01 AM EDT Comment:Pre-op diagnosis: Chest wall abscess [L02.213] Sherlyn Daniel MD LAB MICROBIOLOGY - GENERAL ORD [place]AB[place] [address] * Anaerobic Culture (02/26/2025 9:34 AM EDT) Culture No anaerobes isolated 03/03/2025 5:50 AM EDT [facility] Swab Bone structure of sternum / Unknown 02/26/2025 9:34 AM EDT 02/26/2025 11:01 AM EDT Comment:Pre-op diagnosis: Chest wall abscess [L02.213] Sherlyn Daneil MD LAB MICROBIOLOGY - GENERAL ORD [place]ABLES [place] [address] * Type and screen (02/25/2025 4:54 PM [...] ORDERABL ES Final Result Performing Organization Address City/[facility]/ZIP Co de Phone Number BLOOD BANK [address] [place] [address], * (ABNORMAL) Wound Culture and Gram Stain (02/25/2025 4:46 AM EDT) CULTURE READING WOUND Moderate Growth 02/27/2025 3:19 PM EDT [facility] CULTURE READING WOUND Staphylococcus aureus(A) GEENA 02/27/2025 3:19 PM EDT [facility] Comment:The organism value f or this result has been updated. These results have been appended to the previously preliminary verified report. Gram Stain Result Numerous Polymorphonuclear leukocytes(A) 02/27/2025 3:19 PM EDT [facility] Gram Stain Result Numerous Gram positive cocci in pairs(A) 02/27/2025 3:19 PM EDT [facility] Gram Stain Result Numerous Gram positive cocci in clusters(A) 02/27/2025 3:19 PM EDT [facility] Swab Skin structure / Unknown [...] MICROBIOLOGY - GENERAL ORD ERABLES Final Result [facility] [address] [place] [address] * (ABNORMAL) Bacterial ID Gram Positive (02/25/2025 3:18 AM EDT) Pathologist [facility] Staphylococcus Result Detected( A) Not Detected 02/26/2025 4:46 AM EDT [facility] Comment:Assess if contaminan t or clinically relevant pathogen. Consider clinical stability and immune status of patient. Blood Venous blood specimen / Unknown Venipuncture / Unknown 02/25/2025 3:18 AM EDT 02/25/2025 4:04 AM EDT Narrative [facility] - 02/26/2025 4:46 AM EDT [...] MICROBIOLOGY - GENERAL ORD ERABLES Final Result [facility] [address] [place] [address] * Hepatitis C Virus (HCV) Quantitative PCR - ED (02/25/2025 3:18 AM EDT) [facility] Hepatitis C Virus (HCV) Quantitative Interpretation Not Detected Not Detected. 02/27/2025 2:45 PM EDT [facility] Blood Venous blood specimen / Unknown Venipuncture / Unknown 02/25/2025 3:18 AM EDT 02/25/2025 3:53 AM EDT Narrative [facility] - 02/27/2025 2:45 PM EDT [...] ORDERABLES Final Res ult Performing Organization Address [facility]/ZIP Co de Phone Number [facility] [address] [place] [address] * ED HIV 1/2 Antibody/Antigen Screen w/Reflex to HIV 1/2 Differentiation (02/25/2025 3:18 AM EDT) Pathologist [facility] HIV 1 & 2 Antibody/Antigen Screen Non Reactive Non Reactive 02/25/2025 4:35 AM EDT [facility] Comment:Screening for HIV 1 & 2 antibodies, and P24 antigen is NONREACTIVE. No confirmatory testing is required. Blood Venous blood specimen / Unknown Venipuncture / Unknown 02/25/2025 3:18 AM EDT 02/25/2025 3:53 AM EDT us Franco Guillory MD LAB BLOOD ORDERABLES Final Res ult [facility] [address] [place] [address] * (ABNORMAL) Hepatitis C Antibody - ED (02/25/2025 3:18 AM EDT) Hepatitis C Antibody Positive(A ) Negative 02/25/2025 4:40 AM EDT [facility] Blood Venous blood specimen / Unknown Venipuncture / Unknown 02/25/2025 3:18 AM EDT 02/25/2025 3:53 AM EDT us Franco Guillory MD LAB BLOOD ORDERABLES Final Res ult [facility] [address] [place] [address] * (ABNORMAL) Blood Culture (Aerobic/Anaerobet Set) (02/25/2025 3:18 AM EDT) Pathologist [facility] Culture Staphylococcus aureus(AA) GEENA 02/27/2025 1:21 PM EDT [facility] Comment: Isolated from aerobic and anaerobic culture bottles. The organism value for this result has been updated. These results have been appended to the previously preliminary verified report. Culture Staphylococcus coagulase negative(AA) GEENA 02/27/2025 1:21 PM EDT [facility] Comment: Isolated from aerobic and anaerobic culture bottles. Isolated from one bottle only in a 24-hour period. If workup required, contact bacteriology at [facility]. This organism may be associated with a contaminated culture. The organism value for this result has been updated. These results have been appended to the previously preliminary verified report. Gram Stain Gram positive cocci in clusters(AA) 02/27/2025 1:21 PM EDT [facility] Comment: Organism seen in Anaerobic Blood Culture Bottle. Positivity Date and Time to Detection: 02/25/2025. at 00 Day(s) and 16 Hour(s). This is an appended report. These results have been appended to a previously preliminary verified report. Gram Stain Gram positive cocci in clusters(AA) 02/27/2025 1:21 PM EDT [facility] Comment: Organism seen in Aerobic Blood Culture Bottle. Positivity Date and Time to Detection: 02/25/2025 at 00 Day(s) and 16 Hour(s). This is an appended report. These results have been appended to a previously preliminary verified report. Blood Venous blood specimen / Unknown Venipuncture / Unknown 02/25/2025 3:18 AM EDT 02/25/2025 4:04 AM EDT Narrative [facility] - 02/27/2025 1:21 PM EDT Anaerobic blood culture entered in duplicate. Organism Antibiotic Method Susceptibility Staphylococcus aureus Daptomycin GEENA <=1 ug/ml: Susceptible Staphylococcus aureus Linezolid GEENA <=1 ug/ml: Susceptible Staphylococcus aureus Oxacillin GEENA <=0.25 ug/ml: Susceptible Staphylococcus aureus Vancomycin GEENA 1 ug/ml: Susceptible Franco Guillory MD LAB MICROBIOLOGY - GENERAL ORD ERABLES Final Result Performing Organization Address City/[facility]/ZIP Co de Phone Number [facility] [address] [place] [address] * (ABNORMAL) Blood Culture (Aerobic/Anaerobet Set) (02/25/2025 3:18 AM EDT) [facility] Signature Culture Staphylococcus aureus(AA) 03/03/2025 12:34 PM EDT [facility] Comment: For susceptibility results refer to: - [id number] Isolated from aerobic and anaerobic culture bottles. The organism value for this result has been updated. These results have been appended to the previously preliminary verified report. Gram Stain Gram positive cocci in clusters(AA) 03/03/2025 12:34 PM EDT [facility] Comment: Organism seen in Anaerobic Blood Culture Bottle. Positivity Date and Time to Detection: 02/26/2025. at 00 Day(s) and 19 Hour(s). This is an appended report. These results have been appended to a previously preliminary verified report. Gram Stain Gram positive cocci in clusters(AA) 03/03/2025 12:34 PM EDT [facility] Comment: Organism seen in Aerobic [...] ORD ERABLES Final Result Performing Organization Address City/[facility]/ZIP Co de Phone Number [facility] [address] [place] [address] * (ABNORMAL) Sed rate, automated (02/25/2025 3:18 AM EDT) Sedimentation Rate 65(H) <15 mm/hr 2024 3:54 AM EDT [facility] Blood Venous blood specimen / Unknown Venipuncture / Unknown 02/25/2025 3:18 AM EDT 02/25/2025 3:40 AM EDT Franco Guillory MD LAB BLOOD ORDERABLES Final Res ult Performing Organization Address [facility]/[place]IP [place] [address] * (ABNORMAL) C-Reactive protein (02/25/2025 3:18 AM EDT) CRP, Plasma 282.5(H) <=8.0 mg/L 02/25/2025 4:23 AM EDT [facility] Blood Venous blood specimen / Unknown Venipuncture / Unknown 02/25/2025 3:18 AM EDT 02/25/2025 3:53 AM EDT Narrative [facility] - 02/25/2025 4:23 AM EDT This CRP test is appropriate for assessment of infection, systemic inflammation and/or tissue injury. To assess cardiovascular disease risk order high sensitivity CRP (CRPH). us Franco Guillory MD LAB BLOOD ORDERABLES Final Res ult [facility] [address] [place] [address] * Phosphorus (02/25/2025 3:18 AM EDT) Phosphorus, Plasma 2.7 2.5 - 4.5 mg/dL 02/25/2025 4:23 AM EDT [facility] Blood Venous blood specimen / Unknown Venipuncture / Unknown 02/25/2025 3:18 AM EDT 02/25/2025 3:53 AM EDT Franco Guillory MD LAB BLOOD ORDERABLES Final Res ult [facility] [address] [place] [address] * Magnesium (02/25/2025 3:18 AM EDT) Magnesium, Plasma 2.2 1.9 - 2.4 mg/dL 02/25/2025 4:23 AM EDT [facility] Blood Venous blood specimen / Unknown Venipuncture / Unknown 02/25/2025 3:18 AM EDT 02/25/2025 3:53 AM EDT us Franco Guillory MD LAB BLOOD ORDERABLES Final Res ult Performing Organization Address [facility]/ZIP Co de Phone Number [facility] [address] [place] [address] * (ABNORMAL) CMP (02/25/2025 3:18 AM EDT) Glucose, Plasma 132(H) 74 - 99 mg/dL 02/25/2025 4:23 AM EDT [facility] BUN, Plasma 13 7 - 21 mg/dL 02/25/2025 4:23 AM EDT [facility] Creatinine, Plasma 0.86 0.70 - 1.20 mg/dL 02/25/2025 4:23 AM EDT [facility] BUN/Creatinine Ratio 15 02/25/2025 4:23 AM EDT [facility] Sodium, Plasma 137 136 - 145 mmol/L 02/25/2025 4:23 AM EDT [facility] Potassium, Plasma 3.7 3.6 - 4.9 mmol/L 02/25/2025 4:23 AM EDT [facility] Chloride, Plasma 101 97 - 107 mmol/L 02/25/2025 4:23 AM EDT [facility] CO2, Plasma 24 22 - 29 mmol/L 02/25/2025 4:23 AM EDT [facility] Anion Gap 12 6 - 16 mmol/L 02/25/2025 4:23 AM EDT [facility] Total Calcium, Plasma 9.2 8.9 - 10.2 mg/dL 02/25/2025 4:23 AM EDT [facility] Total Protein 7.4 6.3 - 7.9 g/dL 02/25/2025 4:23 AM EDT [facility] Albumin, Plasma 3.5 3.5 - 5.2 g/dL 02/25/2025 4:23 AM EDT [facility] AST, Plasma 20 10 - 50 U/L 02/25/2025 4:23 AM EDT [facility] Comment:Hemolyzed, result ma y be falsely increased. ALT, Plasma 16 10 - 50 U/L 02/25/2025 4:23 AM EDT [facility] Alkaline Phosphatase, Plasma 100 40 - 115 U/L 02/25/2025 4:23 AM EDT [facility] Total Bilirubin, Plasma 0.7 0.2 - 1.1 mg/dL 02/25/2025 4:23 AM EDT [facility] eGFRcr 115.1 mL/min/1.7 3m*2 02/25/2025 4:23 AM EDT [facility] Comment:Reported eGFRcr in m L/min/1.73m2 is based the CKD-EPI 2020 equation that does not use a race coefficient. Blood Venous blood specimen / Unknown Venipuncture / Unknown 02/25/2025 3:18 AM EDT 02/25/2025 3:53 AM EDT us Franco Guillory MD LAB BLOOD ORDERABLES Final Res ult [facility] [address] [place], [place] [address] * (ABNORMAL) CBC w/diff (02/25/2025 3:18 AM EDT) WBC Count 9.74 3.70 - 10.30 10*3/uL LAB HEMATOLOGY METHOD 02/25/2025 3:42 AM EDT [facility] RBC Count 5.34 4.60 - 6.10 10*6/uL LAB HEMATOLOGY METHOD 02/25/2025 3:42 AM EDT [facility] HGB 15.5 13.7 - 17.5 g/dL LAB HEMATOLOGY METHOD 02/25/2025 3:42 AM EDT [facility] HCT 45.4 40.0 - 51.0 % LAB HEMATOLOGY METHOD 02/25/2025 3:42 AM EDT [facility] Platelet Count 167 155 - 369 10*3/uL LAB HEMATOLOGY METHOD 02/25/2025 3:42 AM EDT [facility] MCV 85 79 - 98 fL LAB HEMATOLOGY METHOD 02/25/2025 3:42 AM EDT [facility] MCH 29.0 26.0 - 32.0 pg LAB HEMATOLOGY METHOD 02/25/2025 3:42 AM EDT [facility] MCHC 34.1 30.7 - 35.5 g/dL LAB HEMATOLOGY METHOD 02/25/2025 3:42 AM EDT [facility] RDW 13.2 11.5 - 14.5 % LAB HEMATOLOGY METHOD 02/25/2025 3:42 AM EDT [facility] MPV 10.0 8.8 - 12.5 fL LAB HEMATOLOGY METHOD 02/25/2025 3:42 AM EDT [facility] nRBC 0.0 <=0.0 per 100 WBCs LAB HEMATOLOGY METHOD 02/25/2025 3:42 AM EDT [facility] Differential Type Automated LAB HEMATOLOGY METHOD 02/25/2025 3:42 AM EDT [facility] Neutrophils % 80 % LAB HEMATOLOGY METHOD 02/25/2025 3:42 AM EDT [facility] Lymphocytes % 10 % LAB HEMATOLOGY METHOD 02/25/2025 3:42 AM EDT [facility] Monocytes % 8 % LAB HEMATOLOGY METHOD 02/25/2025 3:42 AM EDT [facility] Eosinophils % 1 % LAB HEMATOLOGY METHOD 02/25/2025 3:42 AM EDT [facility] Basophils % 0 % LAB HEMATOLOGY METHOD 02/25/2025 3:42 AM EDT [facility] Immature Granulocytes % 1 % LAB HEMATOLOGY METHOD 02/25/2025 3:42 AM EDT [facility] Neutrophils Absolute 7.79(H) 1.60 - 6.10 10*3/uL LAB HEMATOLOGY METHOD 02/25/2025 3:42 AM EDT [facility] Lymphocytes Absolute 1.00(L) 1.20 - 3.90 10*3/uL LAB HEMATOLOGY METHOD 02/25/2025 3:42 AM EDT [facility] Monocytes Absolute 0.76 0.30 - 0.90 10*3/uL LAB HEMATOLOGY METHOD 02/25/2025 3:42 AM EDT [facility] Eosinophils Absolute 0.11 0.00 - 0.50 10*3/uL LAB HEMATOLOGY METHOD 02/25/2025 3:42 AM EDT [facility] Basophils Absolute 0.02 0.00 - 0.10 10*3/uL LAB HEMATOLOGY METHOD 02/25/2025 3:42 AM EDT [facility] Immature Granulocytes Absolute 0.06 0.00 - 0.06 10*3/uL LAB HEMATOLOGY METHOD 02/25/2025 3:42 AM EDT [facility] Blood Venous blood specimen / Unknown Venipuncture / Unknown 02/25/2025 3:18 AM EDT 02/25/2025 3:40 AM EDT Narrative [facility] - 02/25/2025 3:42 AM EDT Therapeutic decision making should be based on absolute values, rather than percentages. us Franco Guillory MD LAB BLOOD ORDERABLES Final Res ult [facility] [address] [place] [address] documented in this encounter Visit Diagnoses Diagnosis [...] Until Discontinued, Routine 0926 (Given - Provider: Mayelni Dorsey RN)2029 (Given - Provider: Marsha Miranda [...] 0425, Until Discontinued, Routine 0334 (Return to [facility] - Provider: Yared Cartwright RN)1814 (Given [...] Provider: Gallo Bhatt, RN)1633 (Given - Provider: Gallo Bhatt, RN)2237 (Given [...] documented as of this encounter Care Teams Foundry Manager Relationship Specialty Start Date End Date Pcp, No [address] [place] [address] PCP - General Family Medicine 02/25/25 documented as of this encounter
--- OUTSIDE RECORDS SUMMARY | 2025-03-08 14:00 | XMS_ITS | Encounter Summary ---
Author Organization Healthcare Address [address] [place] [address] Care Team Providers Care Crab Picker Name Role Phone Pcp, No Primary Care Provider Unavailabl e Francisco Javier Eller MD Unavailable [phone] Encounter Details Date Type Department Care Team (Late st Contact Info) Description 03/08/2025 2:00 PM EDT Office Visit [facility] [address], [address] [place] [address] Keny Tristan MD [address] [place] [address] Sternal wound dehiscence, initial encounter (Primary Dx) Social History Tobacco Use Types Packs/Day Years Used Date Smoking Tobacco: Every Day Cigarettes 0.5 0.5 Smokeless Tobacco: Never Alcohol Use Standard Drinks/Week Comments Never 0 [...] any time in the past 12 m [facility], were you homeless or living in [...] Sign Reading Time Taken Comments Blood Pressure 138/89 03/08/2025 1:14 PM EDT Pulse 84 03/08/2025 1:14 PM EDT Temperature - - Respiratory Rate - - Oxygen Saturation 98% 03/08/2025 1:14 PM EDT Inhaled Oxygen Concentration - - Weight 118 kg (261 lb 3.9 oz) 03/08/2025 1:14 PM EDT Height - - Body Mass Index 33.53 03/02/2025 9:00 AM EDT documented in this encounter Miscellaneous Notes * Addendum Note - Cassidy Early MD - 03/08/2025 2:00 PM EDTAddended by: CASSIDY EARLY on: 03/08/2025 01:52 PM Modules accepted: Orders * Progress Notes - Erasmo Hackett PA - 03/08/2025 2:00 PM EDT Wound Vac Chnage (CPT 31635) Performed by: AGNIESZKA Resendiz Consent: Consent obtained: Verbal Consent given by: Patient Time out: Immediately prior to the procedure a time out was called Indications: Wound Infection DME Vac: Yes Procedure details: Length (cm): 20 Width (cm): 8 Depth (cm): 3.5 Two pieces were placed, one deeper piece of black foam with a second piece on top Foam Applied: Black Polyurethane Foam Therapy: Continuous Pressure (mmHg): 125 Patient tolerance of procedure: Tolerated well, no immediate complications documented in this encounter Plan of Treatment Upcoming Encounters Date Type Department Care Team (Late st Contact Info) Description 04/10/2025 8:30 AM EDT Office Visit [facility] [address] [place] [address] Keny Chin MD [address] [phone] documented as of this encounter Visit Diagnoses Diagnosis Sternal wound dehiscence, initial encounter- Primary documented in this encounter Additional Health Concerns Assessment Noted Time A Body Mass Index follow-up plan has been documented for the patient 03/08/2025 1:43 PM EDT documented as of this encounter Care Teams Crab Picker Relationship Specialty Start Date End Date Pcp, [facility] [address] [place] [address] PCP - General Family Medicine 02/25/25 Francisco [facility] [place] [address] Energy Assistant 03/02/25 documented as of this encounter
--- OUTSIDE RECORDS SUMMARY | 2025-03-12 09:40 | XMS_ITS | Encounter Summary ---
Author Organization Healthcare Address [address] [place] [address] Care Team Providers Care Head Loft Worker Name Role Phone Pcp, No Primary Care Provider Unavailabl e Francisco Javier Eller MD Unavailable [phone] Encounter Details Date Type Department Care Team (Late st Contact Info) Description 03/12/2025 9:40 AM EDT Office Visit [facility] [address] [place] [address] Sherlyn Cisse MD [address] [place] [address] Sternal wound dehiscence, initial encounter [...] any time in the past 12 m [facility], were you homeless or living in a penitentiary (including now)? No 02/27/2025 Utilities Answer Date [...] VAC change again on WednesdayMarch 14 in [facility]. Hisnext appointment to see us in the clinic is on March 26. I have asked he bring a wound VAC sponge and dressing kit with him at the time of that appointment so that we can take it down look at the progress of wound healing and reapply. 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 documented in this encounter Plan of Treatment Upcoming Encounters Date Type Department Care Team (Late st Contact Info) Description 04/10/2025 8:30 AM EDT Office Visit [facility] [address] [place] [address] Keny Chin MD [address] [facility] [address] [place] [address] documented as of this encounter Visit Diagnoses Diagnosis Sternal wound dehiscence, initial encounter- Primary documented in this encounter Additional Health Concerns Assessment Noted Time A fall risk assessment has been complete d for the patient 03/12/2025 10:07 AM EDT A Body Mass Index follow-up plan has been documented for the patient 03/12/2025 10:37 AM EDT documented as of this encounter Care Teams Head Loft Worker Relationship Specialty Start Date End Date Pcp, Heaven [address] [place] [address] PCP - General Family Medicine 02/25/25 Francisco Javier Eller MD [facility] [place] [address] Hydrodynamics Professor 03/02/25 documented as of this encounter
--- OUTSIDE RECORDS SUMMARY | 2025-03-26 09:43 | XMS_ITS | Encounter Summary ---
Author Organization Healthcare Address [address] [place] [address] Care Team Providers Care Sheet Rock Installer Name Role Phone Pcp, No Primary Care Provider Unavailabl e Francisco Javier Eller MD Unavailable [phone] Encounter Details Date Type Department Care Team (Latest Contact Info) Description 03/26/2025 9:43 AM EDT - 03/26/2025 11:59 PM EDT Hospital Encounter [facility] [address] [place] [phone] Presence of prosthetic heart valve [...] any time in the past 12 m [facility], were you homeless or living in a usp (including now)? No 02/27/2025 AUDIT-C Answer Date [...] as of this encounter Functional Status * Over the past 2 weeks, how often have you been bothered by any of the following problems? Question Answer Date of Assessment Author Little interest or pleasure in doing things Not at all 03/27/2025 8:45 AM EDT Sa demar Camara Feeling down, depressed, or hopeless Not at all 03/27/2025 8:45 AM EDT Sa demar Camara Patient Health Questionnaire-2 Score 0 03/27/2025 8:45 AM EDT Tarun Camara * Question Answer Date of Assessment Author Trouble falling or staying asleep, or sleeping too much Not at all 03/27/2025 8:45 AM EDT Tarun Valdivia Ch Feeling tired or having little energy Not at all 03/27/2025 8:45 AM EDT Sa demar Camara Poor appetite or overeating Not at all 03/27/2025 8: 45 AM EDT Tarun Camara Feeling bad about yourself - or that you are a failure or have let yourself or your family down Not at all 03/27/2025 8:45 AM EDT Sa demar Camara Trouble concentrating on things, such as reading the newspaper or watching television Not at all 03/27/2025 8:45 AM EDT Sa demar Camara Moving or speaking so slowly that other people could have noticed? Or the opposite - being so fidgety or restless that you have been moving around a lot more than usual. Not at all 03/27/2025 8:45 AM EDT Tarun Couch Thoughts that you would be better off or hurting yourself in some way Not at all 03/27/2025 8:45 AM EDT Carson Camara Patient Health Questionnaire-9 Score 0 03/27/2025 8:45 AM SHANNONT Tarun Camara * If you checked off any problems on this questionnaire so far, Question Answer Date of Assessment Author How difficult have these problems made it for you to do your work, take care of things at home, or get along with other people? Not difficult at all 03/27/2025 8:45 AM SHANNONT Tarun Camara documented as of this encounter Medications at [...] 1 each 5 04/10/20 25 HYDROcodone-acetami nophen ([place]) 5-325 MG tablet Take 1 tablet by [...] 8:30 AM EDT Office Visit [facility] [address] [place] [phone] Keny Chin MD [facility] [address] [phone] documented as of this encounter [...] documented as of this encounter Care Teams Sheet Rock Installer Relationship Specialty Start Date End Date Pcp, [facility] [address] [place] [address] PCP - General Family Medicine 02/25/25 Francisco [facility] [place] [address] Electrical Mechanic 03/02/25 documented as of this encounter
--- OUTSIDE RECORDS SUMMARY | 2025-03-26 11:40 | XMS_ITS | Encounter Summary ---
Author Organization Healthcare Address [address] [place] [address] Care Team Providers Care Correctional Supervisor Lieutenant Name Role Phone Pcp, No Primary Care Provider Unavailvidal e Francisco Javier Eller MD Unavailable [phone] Reason for Referral * Other Medical (Routine) - Pending Review Specialty Diagnoses / Procedures Referred By Contac t Referred To Contact Diagnoses Presence of prosthetic heart valve Procedures Wound vac dressing change with minor debridement Meera Leos APRN [address] [address] Phone: tel: fax: Referral ID Status Reason Start Date Expiration Date V isits Requested Visits Authorized [id number] Pending Review 03/26/2025 09/25/2026 1 1 Encounter Details Date Type Department Care Team (Late st Contact Info) Description 03/26/2025 11:40 AM EDT Office Visit [place] [facility] Cardi[facility] [address], [facility] [address] [place] [address] Sherlyn Cisse MD [id number] [place] [address] Presence of prosthetic heart valve [...] any time in the past 12 [facility], were you homeless or living in a skilled nursing (including now)? No 02/27/2025 AUDIT-C Answer Date Recorded Frequency of Alcohol Consumption Not on file 03/27/2025 Q2: How many drinks containi ng alcohol do you have on a typical day when you are drinking? Patient does not drink Frequency of Binge Drinking Not on file 03/05 Utilities Answer Date Recorded In the past 12 months has th e electric, gas, oil, or water [employer] threatened to shut off services in your [...] suboxone, infectious endocarditisrequiring tricuspid valve repair in [place] in 2019 who developed issues with chest [...] been getting his vac dressing changes at [facility] (except when he gets them done [...] every 6 hours as needed for pain. YesDom Silver MD Buprenorphine HCl-Naloxone HCl (Suboxone) 8-[address] 2 Film under the tongue daily. Yes Dom Silver MD ceFAZolin (Ancef) injection Infuse 6 gm continuously every 24 hours. Mix per institutional policy. 03/05/25 04/10/25 Yes lAejandro Sandoval PA HYDROcodone-acetaminophen ([place]) 5-325 MG tablet Take 1 tablet by [...] nostril if symptoms continue 03/06/25 Yes Malcolm Landrum, AGNIESZKA Visit Vitals BP (!) 143/81 Pulse 91 [...] regurgitation. Tricuspid Valve: The leaflets appear thickened. [place] TV endocarditis post valve repair with a Deborah salter at [facility] (2019). There appears to be [...] is no recent study available for direct [id number]-[id number] comparison. No valid procedures specified. Review of [...] suboxone, infectious endocarditisrequiring tricuspid valve repair in [place] in 2019 who developed issues with chest [...] Description 04/10/2025 8:30 AM EDT Office Visit [address] [address] Keny Chin MD [address] [place] [address] Scheduled Orders Name Type Priority Associated [...] Performed by: Meera Leos APRN Authorized by: Leos, Meera M, RETAIL ASSISTANT Consent obtained: Verbal Consent given by: Patient [...] Procedure completion: Tolerated well, no immediate complications Meera Leos RETAIL ASSISTANT IN CLINIC/BEDSIDE ORDERABLES Final Result * XR [...] - 99 mg/dL 03/26/2025 10:51 AM EDT [facility] BUN, Plasma 11 7 - 21 mg/dL 03/26/2025 10:51 AM EDT [facility] Creatinine, Plasma 1.06 0.70 - 1.20 mg/dL 03/26/2025 10:51 AM EDT [facility] BUN/Creatinine Ratio 10 03/26/2025 10:51 AM EDT [facility] Sodium, Plasma 140 136 - 145 mmol/L 03/26/2025 10:51 AM EDT [facility] Potassium, Plasma 4.3 3.6 - 4.9 mmol/L 03/26/2025 10:51 AM EDT [facility] Chloride, Plasma 102 97 - 107 mmol/L 03/26/2025 10:51 AM EDT [facility] CO2, Plasma 27 22 - 29 mmol/L 03/26/2025 10:51 AM EDT [facility] Anion Gap 11 6 - 16 mmol/L 03/26/2025 10:51 AM EDT [facility] Total Calcium, Plasma 10.3(H) 8.9 - 10.2 mg/dL 03/26/2025 10:51 AM EDT [facility] eGFRcr 93.3 mL/min/1.7 3m*2 03/26/2025 10:51 AM EDT [facility] Comment:Reported eGFRcr in m L/min/1.73m2 is based the CKD-EPI 2020 equation that does not use a race coefficient. Blood Venous blood specimen / Unknown Venipuncture / Unknown 03/26/2025 9:39 AM EDT 03/26/2025 9:40 AM EDT us Sherlyn Cisse MD LAB BLOOD ORDERABLES Final Res ult [facility] [address] [place] [address] * (ABNORMAL) CBC W/O Differential (03/26/2025 9:39 AM EDT) WBC Count 5.65 3.70 - 10.30 10*3/uL LAB HEMATOLOGY METHOD 03/26/2025 10:35 AM EDT [facility] RBC Count 6.12(H) 4.60 - 6.10 10*6/uL LAB HEMATOLOGY METHOD 03/26/2025 10:35 AM EDT [facility] HGB 17.4 13.7 - 17.5 g/dL LAB HEMATOLOGY METHOD 03/26/2025 10:35 AM EDT [facility] HCT 53.5(H) 40.0 - 51.0 % LAB HEMATOLOGY METHOD 03/26/2025 10:35 AM EDT [facility] Platelet Count 168 155 - 369 10*3/uL LAB HEMATOLOGY METHOD 03/26/2025 10:35 AM EDT [facility] MCV 87 79 - 98 fL LAB HEMATOLOGY METHOD 03/26/2025 10:35 AM EDT [facility] MCH 28.4 26.0 - 32.0 pg LAB HEMATOLOGY METHOD 03/26/2025 10:35 AM EDT [facility] MCHC 32.5 30.7 - 35.5 g/dL LAB HEMATOLOGY METHOD 03/26/2025 10:35 AM EDT [facility] RDW 13.4 11.5 - 14.5 % LAB HEMATOLOGY METHOD 03/26/2025 10:35 AM EDT [facility] MPV 10.6 8.8 - 12.5 fL LAB HEMATOLOGY METHOD 03/26/2025 10:35 AM EDT [facility] nRBC 0.0 <=0.0 per 100 WBCs LAB HEMATOLOGY METHOD 03/26/2025 10:35 AM EDT [facility] Blood Venous blood specimen / Unknown Venipuncture / Unknown 03/26/2025 9:39 AM EDT 03/26/2025 9:40 AM EDT Sherlyn Cisse MD LAB BLOOD ORDERABLES Final Res ult [facility] [address] [place] [address] documented in this encounter Visit Diagnoses Diagnosis [...] documented as of this encounter Care Teams Correctional Supervisor Lieutenant Relationship Specialty Start Date End Date Pcp, No [address] [place] [address] PCP - General Family Medicine 02/25/25 Francisco [facility] [place] [address] Power Washer 03/02/25 documented as of this encounter
--- OUTSIDE RECORDS SUMMARY | 2025-03-27 09:00 | XMS_ITS | Encounter Summary ---
Author Organization Healthcare Address [address] [place] [address] Care Team Providers Care Journeyman Meat Cutter Name Role Phone Pcp, No Primary Care Provider Unavailabl e Francisco Javier Eller MD Unavailable [phone] Reason for Referral * Consultation (Routine) - Authorized Specialty Diagnoses / Procedures Referred By Contac t Referred To Contact Diagnoses Osteomyelitis of sternum (CMS/HCC) Keny Chin MD [address] [place] [phone] Phone: tel: fax: Referral ID Status Reason Start Date Expiration Date V isits Requested Visits Authorized [id number] Authorized 03/27/2025 09/26/2026 1 1 Encounter Details Date Type Department Care Team (Late st Contact Info) Description 03/27/2025 9:00 AM EDT Office Visit [address] [phone] Keny Chin MD [address] [place] [phone] Osteomyelitis of sternum (CMS/HCC) (Primary Dx) [...] in a longterm (including now)? No 02/27/2025 AUDIT-C Answer Date Recorded Frequency of Alcohol Consumption Not on file 03/27/2025 Q2: How many drinks containi ng alcohol do you have on a typical day when you are drinking? Patient does not drink Frequency of Binge Drinking Not on file 03/05 Utilities Answer Date Recorded In the past 12 months has th e [employer], oil, or [employer] threatened to shut off services in your [...] Family History[4] Immunization History Administered Date(s) Administered [employer] COVID-19 Vaccine (Blue Cap) 18+ 01/07/2021 TD [...] regurgitation. Tricuspid Valve: The leaflets appear thickened. [place] TV endocarditis post valve repair with a [facility]ega Procedure at [facility] (2019). There appears to be [...] is no recent study available for direct raex-xl-wffj comparison. 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 Pt was incarcerated at the time, and post-discharge developed chronic drainage from cephalad portion of sternal wound. Pt reportedly had I&Ds at [facility]. Wound subsequentlyhas open and closed several times since 2021, including in December 2024. On/around 02/19/2025, wound again ruptured with large amount of purulent drainage, which pt described as largest amount of renata inage in several years. Pt seen at [facility] 02/24/2025. 02/24/2025 CT showed 2.4x2.1x2.6cm [...] Lucas procedure at [facility] SUBSTANCE ABUSE: Illicit: H/o IVDA, polysubstance abuse. [...] policy., Disp: 1 each, Rfl: 0 HYDROcodone-acetaminophen ([place]) 5-325 MG tablet, Take 1 tablet by [...] Description 04/10/2025 8:30 AM EDT Office Visit [facility] [address] [place] [phone] Keny Chin MD [address] [facility] [address] [place] [phone] Scheduled Referrals Name Type Priority [...] documented as of this encounter Care Teams Journeyman Meat Cutter Relationship Specialty Start Date End Date Pcp, [place] [address] PCP - General Family Medicine 02/25/25 Francisco Javier Eller MD [address] [place] [address] Residential Lawn Specialist 03/02/25 documented as of this encounter
--- OUTSIDE RECORDS SUMMARY | 2025-03-29 12:20 | XMS_ITS | Encounter Summary ---
Author Organization Healthcare Address [address] [place] [address] Care Team Providers Care Spanish Linguist Name Role Phone Pcp, No Primary Care Provider Unavailvidal e Francisco Javier Eller MD Unavailable [phone] Reason for Referral * Imaging (Routine) - Pending Review Specialty Diagnoses / Procedures Referred By Kerry ramirez Referred To Contact Gastroenterology Diagnoses Sternal wound infection Procedures Wound Vac Keny Tristan MD [address] [address] Phone: tel: fax: Referral ID Status Reason Start Date Expiration Date Visits Requested Visits Authorized [id number] Pending Review Specialty Services Required 03/29/2025 09/28/2026 1 1 Encounter Details Date Type Department Care Team (Late st Contact Info) Description 03/29/2025 12:20 PM EDT Office Visit [facility] [address], [address] [address] Keny Tristan MD [address] [address] Sternal wound infection (Primary Dx) [...] in a prison (including now)? No 02/27/2025 AUDIT-C Answer Date Recorded Frequency of Alcohol Consumption Not on file 03/27/2025 Q2: How many drinks containi ng alcohol do you have on a typical day when you are drinking? Patient does not drink Frequency of Binge Drinking Not on file 03/05 Utilities Answer Date Recorded In the past 12 months has th e [employer], gas, oil, or water company threatened to [...] encounter Miscellaneous Notes * Progress Notes - Cayden Khanna MD - 03/29/2025 12:20 PM EDTAssociated Order(s): Wound Vac Post-Procedure Diagnose(s): Sternal wound infection Patient ID: Alex Amaya is a 34 y.o. male. No diagnosis found. Wound Vac Performed by: Cayden Khanna MD Authorized by: Keny Tristan MD Consent: Consent obtained: Verbal Consent given by: Patient Risks, benefits, and alternatives were discussed: yes [place] protocol: Procedure explained and questions answered to patient or proxy's satisfaction: yes Patient identity confirmed: Verbally with patient Sedation: Sedation type: None Anesthesia: Anesthesia method: None Procedure specific details: Prior wound vac dressing removed. Healthy appearing granulation tissue underneath with no signs of infection. Wound measurements were 17cm long x 3cm wide x 2cm deep. A single black sponge was cut slightly smaller than these dimensions and placed into the wound. Adhesive dressing and tubing were applied as per routine. Before negative pressure was applied, I approximated both sides of the sternumand initiated the negative pressure. This allowed for better closure and approximation of the wound. Post-procedure details: Procedure completion: Tolerated well, no immediate complications Cosigned by Keny Tristan MD at 04/08/2025 10:50 AM EDT Associated attestation - Keny Tristan MD - 04/08/2025 10:50 AM EDT I saw and evaluated the patient with the resident/fellow. I discussed the case with the resident/fellow and agree with the findings and plan as documented. documented in this encounter Plan of Treatment Upcoming Encounters Date Type Department Care Team (Late st Contact Info) Description 04/10/2025 8:30 AM EDT Office Visit [facility] [address] [place] [address] Keny Chin MD 3101 [facility] [address] [place] [address] documented as of this encounter Procedures Procedure Name Priority Date/Time Associated Diagnosis Comments THORACENTESIS Routine 03/29/2025 12:20 PM EDT Sternal wound infection documented in this encounter Results * THORACENTESIS (03/29/2025 12:20 PM EDT) Anatomical Region Laterality Modality Endoscopy Narrative 03/29/2025 12:20 PM EDT Keny Tristan MD 04/08/2025 10:50 AM Wound Vac Performed by: Cayden Khanna MD Authorized by: Keny Tristan MD Consent: Consent obtained: Verbal Consent given by: Patient Risks, benefits, and alternatives were discussed: yes [place] protocol: Procedure explained and questions answered to patient or proxy's satisfaction: yes Patient identity confirmed: Verbally with patient Sedation: Sedation type: None Anesthesia: Anesthesia method: None Procedure specific details: Prior wound vac dressing removed. Healthy appearing granulation tissue underneath with no signs of infection. Wound measurements were 17cm long x 3cm wide x 2cm deep. A single black sponge was cut slightly smaller than these dimensions and placed into the wound. Adhesive dressing and tubing were applied as per routine. Before negative pressure was applied, I approximated both sides of the sternum and initiated the negative pressure. This allowed for better closure and approximation of the wound. Post-procedure details: Procedure completion: Tolerated well, no immediate complications us Keny Tristan MD GI PROCEDURE ORDERABLES Diandra l Result documented in this encounter Visit Diagnoses Diagnosis Sternal wound infection- Primary documented in this encounter Additional Health Concerns Assessment Noted Time PHQ-9 Depression Total Score: 0 03/27/20 8:45 AM EDT A fall risk assessment has been complete d for the patient 03/12/2025 10:07 AM EDT A Body Mass Index follow-up plan has been documented for the patient 04/08/2025 10:49 AM EDT documented as of this encounter Care Teams Spanish Linguist Relationship Specialty Start Date End Date Pcp, No [address] [place] [address] PCP - General Family Medicine 02/25/25 Francisco Javier Eller MD [facility] [place] [address] Legal Counsel 03/02/25 documented as of this encounter
--- OUTSIDE RECORDS SUMMARY | 2025-04-09 09:43 | XMS_ITS | Encounter Summary ---
Author Organization Healthcare Address [address] [place] [address] Care Team Providers Care Wood Cutter Name Role Phone Pcp, No Primary [...] Recorded In the past 12 months has [facility] [employer], gas, oil, or water company threatened to [...] 1 Month) No 02/26/2025 8:00 PM EDT iVrginia Claros, RN 2. Non-Specific Active Suici mony Thoughts (Past 1 Month) No 02/26/2025 8:00 PM EDT Monica Claros RN 6. Suicidal Behavior (Lifetime) No 8:00 PM EDT Virginia Claros, RN documented as of this encounter Plan of Treatment Upcoming Encounters Date Type Department Care Team (Late st Contact Info) Description 04/10/2025 8:30 AM EDT Office Visit [facility] [address] [place] [address] Keny Chin MD [address] [address] documented as of this encounter Visit Diagnoses Not on filedocumented in this encounter Additional Health Concerns Assessment Noted Time A Body Mass Index follow-up plan has been documented for the patient 03/06/2025 9:43 AM EDT documented as of this encounter Care Teams Wood Cutter Relationship Specialty Start Date End Date Pcp, No [address] [place] [address] PCP - General Family Medicine 02/25/25 documented as of this encounter
--- OUTSIDE RECORDS SUMMARY | 2025-04-09 09:43 | XMS_ITS | Encounter Summary ---
Author Organization Healthcare Address [address] [place] [address] Care Team Providers Care Chip Crusher Operator Name Role Phone Pcp, No Primary [...] Description 04/10/2025 8:30 AM EDT Office Visit [facility] [address] [place] [address] Keny Chin MD [address] [facility] [address] [place] [address] documented as of this encounter Visit Diagnoses Not on filedocumented in this encounter Additional Health Concerns Assessment Noted Time A Body Mass Index follow-up plan has been documented for the patient 03/06/2025 9:43 AM EDT documented as of this encounter Care Teams Chip Crusher Operator Relationship Specialty Start Date End Date Pcp, [place] [address] PCP - General Family Medicine 02/25/25 documented as of this encounter
--- OUTSIDE RECORDS SUMMARY | 2025-04-09 09:43 | XMS_ITS | Encounter Summary ---
Author Organization Healthcare Address [address] [place] [address] Care Team Providers Care Rug Dyer Helper Name Role Phone Pcp, No Primary Care Provider Unavailvidal e Francisco Javier Eller MD Unavailable [phone] Encounter Details Date Type Department Care Team (Late st Contact Info) Description 02/25/2025 Patient Outreach [facility] Medicine Specialties [address] [place] [address] Gavin Vargas Social History Tobacco [...] any time in the past 12 m [facility], were you homeless or living [...] Description 04/10/2025 8:30 AM EDT Office Visit [facility] [address] [place] [address] Keny Chin MD [address] [address] documented as of this encounter Visit Diagnoses Not on filedocumented in this encounter Additional Health Concerns Assessment Noted Time A Body Mass Index follow-up plan has been documented for the patient 03/06/2025 9:43 AM EDT documented as of this encounter Care Teams Rug Dyer Helper Relationship Specialty Start Date End Date Pcp, Heaven [address] [place] [address] PCP - General Family Medicine 02/25/25 Francisco J[facility] Ell[facility] [place] [address] Quality Improvement Engineer 03/02/25 documented as of this encounter
--- OUTSIDE RECORDS SUMMARY | 2025-04-09 09:43 | XMS_ITS | Encounter Summary ---
Author Organization Healthcare Address [address] [place] [address] Care Team Providers Care Judge Clerk Name Role Phone Pcp, No Primary Care Provider Unavailabl e Encounter Details Date Type Department Care Team (Late st Contact Info) Description 02/24/2025 Orders Only External Location [address] [place] [address] Provider, External Social History Tobacco Use Types [...] the past 12 months has th e [employer], gas, oil, or water company threatened to [...] Description 04/10/2025 8:30 AM EDT Office Visit [facility] [address] [place] [address] Keny Chin MD [address] [address] documented as of this encounter Procedures Procedure [...] on filedocumented in this encounter Care Teams Judge Clerk Relationship Specialty Start Date End Date Pcp, [place] [address] PCP - General Family Medicine 02/25/25 documented as of this encounter
--- OUTSIDE RECORDS SUMMARY | 2025-04-09 09:44 | XMS_ITS ---
Author Organization [facility] Address [address] [place] [id number] Care Team Providers Care Bar Supervisor Name Role Phone Pcp, No Primary Care Provider UnavailFrancisco Javier Perez MD Unavailable [phone] Hepatitis C Program Status:Closed (Closed) Start date:02/25/2025 Enrollment reason:HCV End date:02/25/2025 Close reason:HCV RNA Negative Continued Care and Services Coordination
--- OUTSIDE RECORDS SUMMARY | 2025-04-09 09:44 | XMS_ITS | Encounter Summary ---
Author Organization Healthcare Address [address] [place] [id number] Care Team Providers Care Speech Language Pathologist Travel Name Role Phone Pcp, No Primary Care Provider Unavailabl e Francisco Javier Eller MD Unavailable [phone] Encounter Details Date Type Department Care Team (Late st Contact Info) Description 03/14/2025 Telephone [facility] Cardiothoracic [address], [address] [place] [address] Leela Ayala RN [facility] LUNG [id number] [address] [place] [id number] Social History Tobacco Use Types Packs/Day Years [...] time in the past 12 m [facility], were you homeless or living in a residential (including now)? No 02/27/2025 Utilities Answer Date [...] Office Visit [facility] [address] [place] [address] Keny Chin MD [address] [facility] [address] [place] [address] documented as of this encounter Visit Diagnoses Not on filedocumented in this encounter Additional Health Concerns Assessment Noted Time A fall risk assessment has been complete d for the patient 03/12/2025 10:07 AM EDT A Body Mass Index follow-up plan has been documented for the patient 03/12/2025 10:37 AM EDT documented as of this encounter Care Teams Speech Language Pathologist Travel Relationship Specialty Start Date End Date Pcp, Heaven [address] [place] [address] PCP - General Family Medicine 02/25/25 Francisco Javier Eller MD [address] [place] [address] Director Of Automation 03/02/25 documented as of this encounter
--- OUTSIDE RECORDS SUMMARY | 2025-04-09 09:44 | XMS_ITS | Clinical Summary ---
Author Organization [facility] ([place], [place], [place], [place]) Address [address] [place] [address] Care Team Providers Care Chorus Dancer Name Role Phone Subha Cates MD Primary [...] Type Department Care Team Description 03/21/2025 Abstract [facility] Cardiothoracic Surgery [address] [address] Mita Myles CMA 01/23/2025 Telephone [facility] Cardiothoracic Surgery [address] [address] Mita Myles CMA Follow up appt (Needs CT Chest and Follow up appt.) 01/09/2025 9:30 AM EDT Office Visit [facility] Cardiothoracic Surgery [address] [address] Khalida Gustafson MD Drainage from wound (Primary Dx) from Last 3 Months Family History Medical [...] on file 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 Gender Identity Not on file Sexual [...] Depression Screening (12+) 2000 HIV Screening 2003 Pneumococcal Vaccine: 0-49 Y ears (1 of 2 - PCV) 2007 DTAP/TDAP/TD VACCINES (4 - T d or Tdap) 04/16/2024 04/16/2014, 02/03/2013, 10/29/2011 COVID-19 VACCINE (2 - 2023- season) 06/04/202403/2021 Influenza Vaccine (#1) 2025 Tobacco Cessation Counseling and Screening (12+) 01/09/2026 01/09/2025 Lipid Panel 02/28/2028 02/27/2025 Insurance [facility] [employer] Care Teams Chorus Dancer Relationship Specialty [place] [address] [place] [address] [place] [address] PCP - General Family Medicine 11/21/24 Francisco Javier Eller MD [address] [place] [address] [place] [address] Vending Service Technician Cardiology 11/21/24 Khalida Gustafson MD [address] [place] [address] Surgeon Cardiothoracic Surgery 01/09/25
--- OUTSIDE RECORDS SUMMARY | 2025-04-09 09:44 | XMS_ITS | Encounter Summary ---
Author Organization Healthcare Address [address] [place] [id number] Care Team Providers Care Color Expert Name Role Phone Pcp, No Primary Care Provider Unavailabl e Francisco Javier Eller MD Unavailable [phone] Encounter Details Date Type Department Care Team (Late st Contact Info) Description 03/07/2025 Clinical Support [facility] [address] [place] [address] Saul Bey, PharmD [address] [place] [phone] Social History Tobacco Use Types Packs/Day Years [...] any time in the past [address] [facility], were you homeless or living [...] Description 04/10/2025 8:30 AM EDT Office Visit [place] [address] [place] [address] Keny Chin MD [address] [address] documented as of this encounter Visit Diagnoses Not on filedocumented in this encounter Additional Health Concerns Assessment Noted Time A Body Mass Index follow-up plan has been documented for the patient 03/07/2025 8:32 AM EDT documented as of this encounter Care Teams Color Expert Relationship Specialty Start Date End Date Pcp, No [address] [place] [address] PCP - General Family Medicine 02/25/25 Francisco Javier Eller MD [facility] [place] [id number] Commercial Loan Collection Officer 03/02/25 documented as of this encounter
--- OUTSIDE RECORDS SUMMARY | 2025-04-09 09:44 | XMS_ITS | Encounter Summary ---
Author Organization Healthcare Address [address] [place] [address] Care Team Providers Care Group Manager Name Role Phone Pcp, No Primary Care Provider Unavailvidal e Francisco Javier Eller MD Unavailable [phone] Encounter Details Date Type Department Care Team [...] Description 04/10/2025 8:30 AM EDT Office Visit [facility] [address] [place] [address] Keny Chin MD [address] [address] documented as of this encounter Visit Diagnoses [...] documented as of this encounter Care Teams Group Manager Relationship Specialty Start Date End Date Pcp, [place] [address] PCP - General Family Medicine 02/25/25 Francisco Javier Eller MD [address] [place], [place] [phone] Spectroscopist 03/02/25 documented as of this encounter
--- OUTSIDE RECORDS SUMMARY | 2025-04-09 09:44 | XMS_ITS | Encounter Summary ---
Author Organization Healthcare Address [address] [place] [address] Care Team Providers Care Lye Treater Name Role Phone Pcp, No Primary Care Provider Unavailabl e Francisco Javier Eller MD Unavailable [phone] Encounter Details Date Type Department Care Team (Late st Contact Info) Description 03/07/2025 Telephone [facility] [address] [place] [address] Barbara Martins CV TELE-PROGRESSIVE Social History Tobacco [...] Description 04/10/2025 8:30 AM EDT Office Visit [place] [address] [place] [address] Keny Chin MD [address] [facility] [place] [address] [place] [address] documented as of this encounter Visit Diagnoses Not on filedocumented in this encounter Additional Health Concerns Assessment Noted Time A Body Mass Index follow-up plan has been documented for the patient 03/07/2025 8:32 AM EDT documented as of this encounter Care Teams Lye Treater Relationship Specialty Start Date End Date Pcp, No [address] [place] [address] PCP - General Family Medicine 02/25/25 Francisco Javier Eller MD [address] [place] [address] Route Sales Delivery Drivers Supervisor 03/02/25 documented as of this encounter
--- OUTSIDE RECORDS SUMMARY | 2025-04-09 09:44 | XMS_ITS | Encounter Summary ---
Author Organization Healthcare Address [address] [place] [id number] Care Team Providers Care Crate Tier Name Role Phone Pcp, No Primary Care Provider Unavailabl e Francisco Javier Eller MD Unavailable [phone] Encounter Details Date Type Department Care Team (Late st Contact Info) Description 03/12/2025 Telephone [facility] [address], [address] [place] [address] Leela Ayala RN [facility] LUNG [id number] [address] [place] [phone] Social History Tobacco Use Types Packs/Day Years [...] any time in the past 12 m [facility], were you homeless or [...] 2:33 PM EDT Notified pharmacist everardo for [place] with Suboxone Reviewed with Rogerio Carty APRN, ok for both meds. documented in this encounter Plan of Treatment Upcoming Encounters Date Type Department Care Team (Late st Contact Info) Description 04/10/2025 8:30 AM EDT Office Visit [facility] [address] [place] [address] Keny Chin MD 3101 [facility] [address] [place] [address] documented as of this encounter Visit Diagnoses Not on filedocumented in this encounter Additional Health Concerns Assessment Noted Time A fall risk assessment has been complete d for the patient 03/12/2025 10:07 AM EDT A Body Mass Index follow-up plan has been documented for the patient 03/12/2025 10:37 AM EDT documented as of this encounter Care Teams Crate Tier Relationship Specialty Start Date End Date Pcp, Heaven [address] [place] [address] PCP - General Family Medicine 02/25/25 Francisco Javier Eller MD [address] [place] [address] Operating Room Assistant 03/02/25 documented as of this encounter
--- OUTSIDE RECORDS SUMMARY | 2025-04-09 09:44 | XMS_ITS | Encounter Summary ---
Author Organization Healthcare Address [address] [place] [address] Care Team Providers Care Adjunct Physical Education Instructor Name Role Phone Pcp, No Primary Care Provider Unavailabl e Francisco Javier Eller MD Unavailable [phone] Encounter Details Date Type Department Care Team (Late st Contact Info) Description 03/14/2025 Orders Only Cardiothoracic Surgery [address] [place] [address] Indra Mcintosh M, HEAD INSULATION BOARD SAW OPERATOR [address] [facility] [address] [place] [address] Social History Tobacco Use Types [...] Description 04/10/2025 8:30 AM EDT Office Visit [facility] [address] [place] [address] Keny Chin MD [address] [facility] [address] [place] [address] documented as of this encounter Visit Diagnoses Not on filedocumented in this encounter Additional Health Concerns Assessment Noted Time A fall risk assessment has been complete d for the patient 03/12/2025 10:07 AM EDT A Body Mass Index follow-up plan has been documented for the patient 03/12/2025 10:37 AM EDT documented as of this encounter Care Teams Adjunct Physical Education Instructor Relationship Specialty Start Date End Date Pcp, No [address] [place] [address] PCP - General Family Medicine 02/25/25 Francisco J[facility] Eller MD [facility] [place] [address] Hide Shaker 03/02/25 documented as of this encounter
--- OUTSIDE RECORDS SUMMARY | 2025-04-09 09:44 | XMS_ITS | Encounter Summary ---
Author Organization Healthcare Address [address] [place] [address] Care Team Providers Care Permastone Installer Name Role Phone Pcp, No Primary [...] time in the past [address] [facility], were you homeless or living in a fci (including now)? No 02/27/2025 Utilities Answer Date Recorded In the past 12 months has th e [employer], gas, oil, or water company threatened to [...] AM EDT Office Visit [facility] [address] [place] [address] Keny Chin MD [address] [address] documented as of this encounter Visit Diagnoses Not on filedocumented in this encounter Additional Health Concerns Assessment Noted Time A Body Mass Index follow-up plan has been documented for the patient 03/06/2025 9:43 AM EDT documented as of this encounter Care Teams Permastone Installer Relationship Specialty Start Date End Date P[place], [place] [address] PCP - General Family Medicine 02/25/25 documented as of this encounter
--- OUTSIDE RECORDS SUMMARY | 2025-04-09 09:44 | XMS_ITS | Encounter Summary ---
Author Organization Healthcare Address [address] [place] [address] Care Team Providers Care Fashion Illustrator Name Role Phone Pcp, No Primary Care Provider Unavailvidal e Francisco Javier Eller MD Unavailable [phone] Encounter Details Date Type Department Care Team [...] in a [facility] (including now)? No 02/27/2025 AUDIT-C Answer Date [...] Description 04/10/2025 8:30 AM EDT Office Visit [place] [address] [place] [address] [place] [address] [place] [address] documented as of this encounter Visit [...] documented as of this encounter Care Teams Fashion Illustrator Relationship Specialty Start Date End Date Pcp, Heaven [address] [place] [address] PCP - General Family Medicine 02/25/25 Francisco J[facility] Ell[facility] MD [facility] [place] [address] [place] Division Director 03/02/25 documented as of this encounter
--- OUTSIDE RECORDS SUMMARY | 2025-04-09 09:44 | XMS_ITS | Referral Summary ---
Author Organization [employer] ([place], [place], [place], [place]) Address [address] [place] [address] Care Team Providers Care Medicine Technologist Name Role Phone Subha Cates MD Primary Care Provider Francisco Javier Eller MD Unavailable [phone] Khalida Gustafson MD Unavailable [phone] Encounters Date Type Department Care Team Description 03/21/2025 Abstract [facility] Cardiothoracic Surgery [address] [address] Mita Myles CMA 01/23/2025 Telephone [facility] Cardiothoracic Surgery [address] [address] Mita Myles CMA Follow up appt (Needs CT Chest and Follow up appt.) 01/09/2025 9:30 AM EDT Office Visit [facility] Cardiothoracic Surgery [address] [address] Khalida Gustafson MD Drainage from wound (Primary Dx) from Last 3 Months Allergies No known [...] on file 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
--- OUTSIDE RECORDS SUMMARY | 2025-04-09 09:45 | XMS_ITS | Encounter Summary ---
Author Organization Healthcare Address [address] [place] [address] Care Team Providers Care Aircraft Inspection Record Clerk Name Role Phone Pcp, No Primary Care Provider Unavailabl e Francisco Javier Eller MD Unavailable [phone] Encounter Details Date Type Department Care Team [...] Description 04/10/2025 8:30 AM EDT Office Visit [address] [address] Keny Chin MD [address] [place] [id number] documented as of this encounter Visit Diagnoses Not on filedocumented in this encounter Additional Health Concerns Assessment Noted Time A fall risk assessment has been complete d for the patient 03/12/2025 10:07 AM EDT A Body Mass Index follow-up plan has been documented for the patient 03/12/2025 10:37 AM EDT documented as of this encounter Care Teams Aircraft Inspection Record Clerk Relationship Specialty Start Date End Date Pcp, No [address] [place] [address] PCP - General Family Medicine 02/25/25 Francisco Javier Eller MD [address] [place] [address] Tile Professional 03/02/25 documented as of this encounter
--- OUTSIDE RECORDS SUMMARY | 2025-04-09 09:45 | XMS_ITS | Encounter Summary ---
Author Organization Healthcare Address [address] [place] [address] Care Team Providers Care Aquaculture Farmer Name Role Phone Pcp, No Primary Care Provider Unavailabl e Francisco Javier Eller MD Unavailable [phone] Encounter Details Date Type Department Care Team [...] 8:30 AM EDT Office Visit [facility] [address] [place] [address] Keny Chin MD [address] [phone] documented as of this encounter Visit Diagnoses Not on filedocumented in this encounter Additional Health Concerns Assessment Noted Time A Body Mass Index follow-up plan has been documented for the patient 03/08/2025 1:43 PM EDT documented as of this encounter Care Teams Aquaculture Farmer Relationship Specialty Start Date End Date Pcp, No [address] [place] [address] PCP - General Family Medicine 02/25/25 Francisco Javier Ell[facility] [place] [address] Physical Plant Manager 03/02/25 documented as of this encounter
--- OUTSIDE RECORDS SUMMARY | 2025-04-09 09:45 | XMS_ITS | Clinical Summary ---
Author Organization Healthcare Address [address] [place] [address] Care Team Providers Care Street Light Inspector Name Role Phone Pcp, No Primary Care Provider Unavailvidal e rFancisco Javier Eller MD Unavailable [phone] Allergies No known active allergies Medications Buprenorphine [...] hours. Mix per institutional policy. 1 each 03/05/20 25 025 Active lidocaine (Lidoderm) 5 % patch Apply 1 patch topically 1 (one) time each day at the same time over 12 hours. Remove & discard patch within 12 hours or as directed by . 20 patch 03/06/20 25 Active naloxone (Narcan) 4 mg/0.1 mL nasal spray 1. Give 1 spray in nostril for no/slow breathing or cannot wake after opioid use 2. Call 911 3. Repeat in other nostril if symptoms continue 1 each 03/06/20 25 Active HYDROcodone-aceta minophen ([place]) 5-325 MG tablet Take 1 tablet by mouth every 6 hours as needed for moderate pain or severe pain. 80 tablet 03/12/20 25 025 Active methocarbamol (Robaxin) 750 MG tablet Take 1 tablet by mouth 4 times a day. 40 tablet 03/14/20 25 Active oxyCODONE (Roxicodone) 5 MG immediate release tablet Take 2 tablets by mouth every 4 hours as needed for severe pain (For pain unrelieved by other interventions) for up to 3 days. 24 tablet 03/06/20 25 025 Additional Information Patient not taking.Reported on 03/12/2025 methocarbamol (Robaxin) 750 MG tablet Take 1 tablet by mouth 4 times a day. 30 tablet 03/06/20 25 025 Discontin ued(Reord er) oxyCODONE (Roxicodone) 5 MG immediate release tablet Take 1 tablet by mouth every 8 hours as needed for severe pain (To be taken for wound vac changes.) for up to 3 days. 10 tablet 03/08/20 25 025 Active Problems Problem Noted Date Diagnosed Date [...] Description 03/29/2025 12:20 PM EDT Office Visit [facility] Cardioth[facility]acic [address], [address] [place] [address] Keny Tristan MD Sternal wound infection (Primary Dx) 03/29/2025 Travel 03/27/2025 9:00 AM EDT Office Visit [facility] [address] [place] [phone] Keny Chin MD Osteomyelitis of sternum (CMS/HCC) (Primary Dx) 03/27/2025 Travel 03/26/2025 11:40 AM EDT Office Visit [facility] Cardi[facility] [address], [address] [place] [address] Sherlyn Cisse MD Presence of prosthetic heart valve (Primary Dx) 03/26/2025 9:43 AM EDT - 03/26/2025 11:59 PM EDT Hospital Encounter [facility] Radiology [address], [address] [place] [address] Presence of prosthetic heart valve Discharge Disposition: Home or Self Care 03/26/2025 Travel 03/14/2025 Telephone [facility] [address], [address] [place] [address] Leela Ayala, RN 03/14/2025 Orders Only Cardiothoracic Surgery [address] [place] [address] Indra Mcintosh, JEA 03/12/2025 9:40 AM EDT Office Visit [facility] [address], [address] [place] [address] Sherlyn Cisse MD Sternal wound dehiscence, initial encounter (Primary Dx) 03/12/2025 Telephone [facility] [address], [address] [place] [address] Leela Ayala, RN 03/12/2025 Travel 03/08/2025 2:00 PM EDT Office Visit [facility] [address], [address] [place] [address] Keny Tristan MD Sternal wound dehiscence, initial encounter (Primary Dx) 03/08/2025 Travel 03/07/2025 Telephone [facility] [address] [place] [address] Barbara Martins 03/07/2025 Clinical Support [address] [place] [address] Saul Bey, PharmD 02/27/2025 Travel 02/26/2025 9:00 AM EDT - 02/26/2025 11:30 AM EDT Surgery [facility] [address] [place] [address] Sherlyn Cisse MD CHEST WASHOUT, REMOVAL OF STERNAL PLATES 02/26/2025 8:43 AM EDT Anesthesia Event [facility] [address] [place] [address] Praneeth Jasmine MD Ram, Harish, MD 02/26/2025 Travel 02/25/2025 2:42 AM EDT - 03/06/2025 1:35 PM EDT Hospital Encounter [facility] [address] [place] [address] Franco Guillory MD Ogburn, Erinn A, MD Chest wall abscess (Primary Dx); Bacteremia due to Staphylococcus aureus Discharge Disposition: Home or Self Care 02/25/2025 Patient Outreach [facility] Medicine Specialties [address] [place] [address] Gavin Vargas 02/25/2025 Travel 02/24/2025 Orders Only External Location [address] [place] [phone] Provider, External from Last 3 Months Immunizations [...] time in the past 12 m [facility], were you homeless or living in a nursing home (including now)? No 02/27/2025 AUDIT-C Answer Date [...] Description 04/10/2025 8:30 AM EDT Office Visit [facility] [address] [place] [address] Keny Chin MD [address] [facility] [address] [place] [address] Health Maintenance Due Date Last Done [...] Td or Tdap) 04/16/2024 04/16/2014, 02/03/2013, 10/29/2011 [id number] Vaccine (2 - 2023- season) 2024 01/07/2021 [facility]-Influenza Vaccine (#1) 2025 [facility]- SDOH Screenings 08/30/2025 [facility]-Adult SDOH Screenings 08/30/2025 02/27/2025 [facility]-Depression Screening 03/27/2026 025, 03/27/2025, 03/26/2025 [facility]-Zoster Vaccines (1 of 2) 2038 [facility]-HIV Screening Completed 02/25/2025 [facility]-Obesity Intervention Completed 025, 03/27/2025, 03/26/2025, Additional history exists [facility]-HIB Vaccines Aged Out [...] Diagnosis Comments CBC WITH AUTO DIFFERENTIAL Routine 04/02/2025 C-REACTIVE PROTEIN, PLASMA Routine 04/02/2025 UREA NITROGEN, PLASMA Routine 04/02/2025 CREATININE, PLASMA Routine 04/02/2025 THORACENTESIS Routine 03/29/2025 12:20 PM EDT Sternal [...] ANESTHESIA PLACEHOLDER Routine 02/26/2025 8:53 AM EDT ID AN ELECTIVE ENDOTRACHEAL AIRWAY Routine 02/26/2025 8:53 [...] Last 3 Months Results * Creatinine, Plasma (04/02/2025) Only the most recent of4 resultswithin the time period is included. External Creatinine Blood 0.90 mg/dL Blood Venous blood specimen / Unknown 04/02/2025 Historical Provider LAB BLOOD ORDERABLES Diandra l Result * CBC and Differential (04/02/2025) Only the most recent of6 resultswithin the time period is included. External WBC 5.3 4.8 - 10.8 K/mm3 External Red Blood Cell (RBC) 5.67 External Hemoglobin (Hgb) 16.40 External Hematocrit (Hct) 49.6 External Platelet Count (Plt) 120 External Neutrophil Abs 3.6 External Lymphocyte-Absol [place] 1.1 External Monocyte Absolute 0.3 External Eos-Absolute 0.2 Blood Venous blood specimen / Unknown 04/02/2025 Result [facility] Provider MD LAB BLOOD ORDERABLES Diandra l Result * (ABNORMAL) C-Reactive Protein, Plasma (04/02/2025) Only the most recent of5 resultswithin the time period is included. Pathologist [facility] [place] External C-Reactive Protein(CRP) 8.3(A) 0 - 4 mg/L Blood Venous blood specimen / Unknown 04/02/2025 Result [facility] Provider MD LAB BLOOD ORDERABLES Diandra l Result * Urea Nitrogen, Plasma (04/02/2025) Only the most recent of4 resultswithin the time period is included. Pathologist [facility] [place] External BUN 13 Blood Venous blood specimen / Unknown 04/02/2025 Result [facility] Provider LAB BLOOD ORDERABLES Diandra l Result * THORACENTESIS (03/29/2025 12:20 PM EDT) Anatomical Region Laterality Modality Endoscopy Narrative 03/29/2025 12:20 PM EDT Keny Tristan MD 04/08/2025 10:50 AM Wound Vac Performed by: Cayden Khanna MD Authorized by: Keny Tristan MD Consent: Consent obtained: Verbal Consent given by: Patient Risks, benefits, and alternatives were discussed: yes [place] protocol: Procedure explained and questions answered to [...] Procedure completion: Tolerated well, no immediate complications Keny Tristan MD GI PROCEDURE ORDERABLES Diandra josh Result * GENERAL (03/26/2025 11:40 AM EDT) Narrative [...] LAB HEMATOLOGY METHOD 03/26/2025 10:35 AM EDT [facility] RBC Count 6.12(H) 4.60 - 6.10 10*6/uL LAB HEMATOLOGY METHOD 03/26/2025 10:35 AM EDT [facility] HGB 17.4 13.7 - 17.5 g/dL LAB HEMATOLOGY METHOD 03/26/2025 10:35 AM EDT [facility] HCT 53.5(H) 40.0 - 51.0 % LAB HEMATOLOGY METHOD 03/26/2025 10:35 AM EDT [facility] Platelet Count 168 155 - 369 10*3/uL LAB HEMATOLOGY METHOD 03/26/2025 10:35 AM EDT [facility] MCV 87 79 - 98 fL LAB HEMATOLOGY METHOD 03/26/2025 10:35 AM EDT [facility] MCH 28.4 26.0 - 32.0 pg LAB HEMATOLOGY METHOD 03/26/2025 10:35 AM EDT [facility] MCHC 32.5 30.7 - 35.5 g/dL LAB HEMATOLOGY METHOD 03/26/2025 10:35 AM EDT [facility] RDW 13.4 11.5 - 14.5 % LAB HEMATOLOGY METHOD 03/26/2025 10:35 AM EDT [facility] MPV 10.6 8.8 - 12.5 fL LAB HEMATOLOGY METHOD 03/26/2025 10:35 AM EDT [facility] nRBC 0.0 <=0.0 per 100 WBCs LAB HEMATOLOGY METHOD 03/26/2025 10:35 AM EDT [facility] Blood Venous blood specimen / Unknown Venipuncture / Unknown 03/26/2025 9:39 AM EDT 03/26/2025 9:40 AM EDT us Sherlyn Cisse MD LAB BLOOD ORDERABLES Final Res ult [facility] [address] [place] [address] * (ABNORMAL) Basic Metabolic Panel, Plasma (03/26/2025 9:39 AM EDT) Only the most recent of4 resultswithin the time period is included. Glucose, Plasma 59(L) 74 - 99 mg/dL 03/26/2025 10:51 AM EDT [facility] BUN, Plasma 11 7 - 21 mg/dL 03/26/2025 10:51 AM EDT [facility] Creatinine, Plasma 1.06 0.70 - 1.20 mg/dL 03/26/2025 10:51 AM EDT [facility] BUN/Creatinine Ratio 10 03/26/2025 10:51 AM EDT [facility] Sodium, Plasma 140 136 - 145 mmol/L 03/26/2025 10:51 AM EDT [facility] Potassium, Plasma 4.3 3.6 - 4.9 mmol/L 03/26/2025 10:51 AM EDT [facility] Chloride, Plasma 102 97 - 107 mmol/L 03/26/2025 10:51 AM EDT [facility] CO2, Plasma 27 22 - 29 mmol/L 03/26/2025 10:51 AM EDT [facility] Anion Gap 11 6 - 16 mmol/L 03/26/2025 10:51 AM EDT [facility] Total Calcium, Plasma 10.3(H) 8.9 - 10.2 mg/dL 03/26/2025 10:51 AM EDT [facility] eGFRcr 93.3 mL/min/1.7 3m*2 03/26/2025 10:51 AM EDT [facility] Comment:Reported eGFRcr in m L/min/1.73m2 is based the CKD-EPI 2020 equation that does not use a race coefficient. Blood Venous blood specimen / Unknown Venipuncture / Unknown 03/26/2025 9:39 AM EDT 03/26/2025 9:40 AM EDT us Sherlyn Cisse MD LAB BLOOD ORDERABLES Final Res ult [facility] [address] [place] [address] * PICC SINGLE LUMEN (SMARTFORM LINK) (03/04/2025 4:49 PM EDT) Narrative Maxwell Roper RN - 03/04/2025 4:49 PM EDT Maxwell Roper RN 03/04/2025 4:50 PM Insert PICC line Date/Time: 03/04/2025 4:49 PM Performed by: Maxwell Roper RN Authorized by: Sherlyn Cisse MD [place] Protocol: Verbal consent obtained?: Yes Written consent [...] vein Patient position: Flat Catheter Lot #: [id number] Catheter airplane cleaner: Wickr Catheter placed: Single lumen Catheter size: 4 [...] LAB HEMATOLOGY METHOD 03/03/2025 3:14 AM EDT [facility] Platelet Estimate Platelet smear estimate consistent with automated count LAB HEMATOLOGY METHOD 03/03/2025 3:14 AM EDT [facility] Blood Venous blood specimen / Unknown Venipuncture / Unknown 03/03/2025 2:11 AM EDT 03/03/2025 2:25 AM EDT us Kelsie Carty APRN LAB BLOOD ORDERABLES Final R esult [facility] [address] [place] [address] * (ABNORMAL) Manual Differential (03/03/2025 2:11 AM EDT) Blasts % 0 % LAB HEMATOLOGY METHOD 03/03/2025 3:14 AM EDT [facility] Promyelocytes % 0 % LAB HEMATOLOGY METHOD 03/03/2025 3:14 AM EDT [facility] Myelocytes % 2 % LAB HEMATOLOGY METHOD 03/03/2025 3:14 AM EDT [facility] Metamyelocytes % 3 % LAB HEMATOLOGY METHOD 03/03/2025 3:14 AM EDT [facility] Neutrophils % 75 % LAB HEMATOLOGY METHOD 03/03/2025 3:14 AM EDT [facility] Lymphocytes % 14 % LAB HEMATOLOGY METHOD 03/03/2025 3:14 AM EDT [facility] Reactive Lymphocytes % 0 % LAB HEMATOLOGY METHOD 03/03/2025 3:14 AM EDT [facility] Monocytes % 3 % LAB HEMATOLOGY METHOD 03/03/2025 3:14 AM EDT [facility] Eosinophils % 3 % LAB HEMATOLOGY METHOD 03/03/2025 3:14 AM EDT [facility] Basophils % 0 % LAB HEMATOLOGY METHOD 03/03/2025 3:14 AM EDT [facility] Blasts Absolute 0.00 10*3/UL LAB HEMATOLOGY METHOD 03/03/2025 3:14 AM EDT [facility] Promyelocytes Absolute 0.00 10*3/uL LAB HEMATOLOGY METHOD 03/03/2025 3:14 AM EDT [facility] Myelocytes Absolute 0.21 10*3/uL LAB HEMATOLOGY METHOD 03/03/2025 3:14 AM EDT [facility] Metamyelocytes Absolute 0.31 10*3/uL LAB HEMATOLOGY METHOD 03/03/2025 3:14 AM EDT [facility] Neutrophils Absolute 7.72(H) 1.60 - 6.10 10*3/uL LAB HEMATOLOGY METHOD 03/03/2025 3:14 AM EDT [facility] Lymphocytes Absolute 1.44 1.20 - 3.90 10*3/uL LAB HEMATOLOGY METHOD 03/03/2025 3:14 AM EDT [facility] Reactive Lymphocytes Absolute 0.00 10*3/uL LAB HEMATOLOGY METHOD 03/03/2025 3:14 AM EDT [facility] Monocytes Absolute 0.31 0.30 - 0.90 10*3/uL LAB HEMATOLOGY METHOD 03/03/2025 3:14 AM EDT [facility] Eosinophils Absolute 0.31 0.00 - 0.50 10*3/uL LAB HEMATOLOGY METHOD 03/03/2025 3:14 AM EDT [facility] Basophils Absolute 0.00 0.00 - 0.10 10*3/uL LAB HEMATOLOGY METHOD 03/03/2025 3:14 AM EDT [facility] Blood Venous blood specimen / Unknown Venipuncture / Unknown 03/03/2025 2:11 AM EDT 03/03/2025 2:25 AM EDT Kelsie Carty HOSPICE SOCIAL WORKER LAB BLOOD ORDERABLES Final R esult Performing Organization Address City/[facility]/ZIP Co de Phone Number [facility] [address] [place] [address] * Blood Culture (Aerobic/Anaerobet Set) (03/03/2025 2:11 AM EDT) Only the most recent of8 resultswithin the time period is included. Culture No growth at day 5 GEENA 03/08/2025 4:02 AM EDT [facility] Blood Structure of antecubital vein / Unknown Venipuncture / Unknown 03/03/2025 2:11 AM EDT 03/03/2025 3:04 AM EDT Narrative [facility] - 03/08/2025 4:02 AM EDT Low blood volume submitted, results may be compromised us Kelsie Carty APRN LAB MICROBIOLOGY - GENERAL O RDERABLES Final Result Performing Organization Address City/[facility]/[place] [address] * Magnesium, Plasma (03/03/2025 2:11 AM EDT) Only the most recent of3 resultswithin the time period is included. Magnesium, Plasma 2.2 1.9 - 2.4 mg/dL 03/03/2025 2:55 AM EDT [facility] Blood Venous blood specimen / Unknown Venipuncture / Unknown 03/03/2025 2:11 AM EDT 03/03/2025 2:23 AM EDT us Kelsie Carty HOSPICE SOCIAL WORKER LAB BLOOD ORDERABLES Final R esult [facility] [address] [place] [address] * (ABNORMAL) Hepatic function panel (03/03/2025 2:11 AM EDT) Conjugated Bilirubin, Plasma <0.2 <=0.3 mg/dL 03/03/2025 2:55 AM EDT [facility] Comment:Hemolyzed, result ma y be falsely decreased. Alkaline Phosphatase, Plasma 99 40 - 115 U/L 03/03/2025 2:55 AM EDT [facility] Total Bilirubin, Plasma 0.3 0.2 - 1.1 mg/dL 03/03/2025 2:55 AM EDT [facility] Albumin, Plasma 3.3(L) 3.5 - 5.2 g/dL 03/03/2025 2:55 AM EDT [facility] Total Protein 7.9 6.3 - 7.9 g/dL 03/03/2025 2:55 AM EDT [facility] ALT, Plasma 36 10 - 50 U/L 03/03/2025 2:55 AM EDT [facility] AST, Plasma 46 10 - 50 U/L 03/03/2025 2:55 AM EDT [facility] Comment:Hemolyzed, result ma y be falsely increased. Blood Venous blood specimen / Unknown Venipuncture / Unknown 03/03/2025 2:11 AM EDT 03/03/2025 2:23 AM EDT us Kelsie Carty APRN LAB BLOOD ORDERABLES Final R esult [facility] [address] [place] [address] * PERIPHERAL IV (SMARTFORM LINK) (02/27/2025 6:13 [...] regurgitation. Tricuspid Valve: The leaflets appear thickened. 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 There appears to be restricted [...] is no recent study available for direct [id number] comparison. Left Ventricle Based on the linear [...] stenosis. Tricuspid Valve The leaflets appear thickened. 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 There appears to be restricted [...] is no recent study available for direct [id number] comparison. Wall Scoring Baseline Score Index: 1.00 [...] - 40.0 ug/mL 02/27/2025 11:21 AM EDT [facility] Blood Venous blood specimen / Unknown Venipuncture / Unknown 02/27/2025 10:46 AM EDT 02/27/2025 10:52 AM EDT Narrative [facility] - 02/27/2025 11:21 AM EDT Therapeutic Peak level: 20-40ug/mL Supra-therapeutic Peak level: >40 ug/mL us Alejandro AARON LAB BLOOD ORDERABLES Final R esult [facility] [address] [place] [address] * Hemoglobin A1c (02/27/2025 4:33 AM EDT) Hemoglobin A1c 5.4 <5.7 % 02/27/2025 7:06 AM EDT [facility] Blood Venous blood specimen / Unknown Venipuncture / Unknown 02/27/2025 4:33 AM EDT 02/27/2025 4:45 AM EDT Narrative [facility] - 02/27/2025 7:06 AM EDT HA1C Interpretive Data: Diagnosis of Diabetes: Diabetic > or = 6.5% Pre-diabetic 5.7 to 6.4% Non-diabetic < or = 5.6% Glycemic Targets for Type I and Type II Diabetics: Non- Adults <7.0% Adults <6.0% Children and Adolescents <7.5% Source: [place] [employer]. Standards of medical care in diabetes,2017. Diabetes Care.2017:40 (suppl 1):S1-S135. Alejandro AARON LAB BLOOD ORDERABLES Final R esult [facility] [address] [place] [address] * (ABNORMAL) Lipid panel (02/27/2025 4:33 AM EDT) Cholesterol, Plasma 108 <200 mg/dL 02/27/2025 5:14 AM EDT [facility] Comment: Cholesterol Reference Range (age >17 years): Desirable <200 mg/dL Borderline 200 to 239 mg/dL Undesirable >239 mg/dL HDL 28(L) >=40 mg/dL 02/27/2025 5:14 AM EDT [facility] Comment: HDL Cholesterol Reference Ranges (age >17 years): Female, acceptable > or = 50 mg/dL Male, acceptable > or = 40 mg/dL Triglycerides, Plasma 94 <150 mg/dL 02/27/2025 5:14 AM EDT [facility] Comment: Triglyceride Reference Range (age >17 years): Desirable: <150 mg/dL Borderline high: 150 to 199 mg/dL High: 200 to 499 mg/dL Very high: >499 mg/dL Increased risk of pancreatitis: >1000 mg/dL Cholesterol/HDL Ratio 4 02/27/2025 5:14 AM EDT [facility] LDL, Calculated 62 <100 mg/dL 5:14 AM EDT [facility] Comment: LDL Cholesterol Reference Range [...] 12 hours? No 02/27/2025 5:14 AM EDT [facility] Blood Venous blood specimen / Unknown Venipuncture / Unknown 02/27/2025 4:33 AM EDT 02/27/2025 4:42 AM EDT Alejandro AARON LAB BLOOD ORDERABLES Final R esult [facility] [address] [place] [address] * XR Chest 1 View (02/27/2025 2:37 [...] at 4 Weeks 03/27/2025 8:06 AM EDT [facility] DANY Source not suitable for smear 03/27/2025 8:06 AM EDT [facility] Foreign Body Bone structure of sternum / Unknown 02/26/2025 10:10 AM EDT 02/26/2025 11:21 AM EDT Comment:Pre-op diagnosis: Chest wall abscess [L02.213] Sherlyn Cisse MD LAB MICROBIOLOGY - GENERAL ORD ERABLES Final Result [facility] [address] [facility] [place] [address] * (ABNORMAL) Routine Culture and Gram Stain (02/26/2025 10:10 AM EDT) Culture Light Growth 03/01/2025 3:23 PM EDT [facility] Culture Staphylococcus aureus(A) GEENA 03/01/2025 3:23 PM EDT [facility] Foreign Body Bone structure of [...] ORD ERABLES Final Result Performing Organization Address City/[facility] Co de Phone Number [facility] [address] [place] [address] * Anaerobic Culture (02/26/2025 10:10 AM EDT) Only the most recent of2 resultswithin the time period is included. Culture No anaerobes isolated 03/03/2025 5:50 AM EDT [facility] Foreign Body Bone structure of sternum / Unknown 02/26/2025 10:10 AM EDT 02/26/2025 11:21 AM EDT Comment:Pre-op diagnosis: Chest wall abscess [L02.213] Sherlyn Cisse MD LAB MICROBIOLOGY - GENERAL ORD ERABLES Final Result Performing Organization Address City/[facility] Co de Phone Number [facility] [address] [place] [address] * (ABNORMAL) POCT arterial blood gas gem (02/26/2025 9:42 AM EDT) pH, Arterial 7.42 7.35 - 7.45 02/26/2025 9:44 AM [facility] pCO2, Arterial 41 32 - 45 mm Hg 02/26/2025 9:44 AM [facility] pO2, Arterial 105 83 - 108 mm Hg 02/26/2025 9:44 AM [facility] SO2, Arterial 99(H) 94 - [...] 02/26/2025 9:44 AM [facility] Boatswain'S Mate ID Jordan, Carina 02/26/2025 9:44 AM EDT [facility] Blood, Arterial Whole blood specimen / Unknown 02/26/2025 9:42 AM EDT 02/26/2025 9:44 AM EDT us Sherlyn Cisse MD LAB POINT OF CARE TE ST DOCKED DEVICE UNSOLICITED RESULTS Final Result [facility] [address] [place], [place] [id number] * (ABNORMAL) Abscess Culture and Gram Stain (02/26/2025 9:34 AM EDT) Culture Light Growth 03/01/2025 3:22 PM EDT [facility] Culture Staphylococcus aureus(A) GEENA 03/01/2025 3:22 PM EDT [facility] Comment:The organism value f or this result has been updated. These results have been appended to the previously preliminary verified report. Gram Stain Result Few Polymorphonuclear leukocytes(A) 03/01/2025 3:22 PM EDT [facility] Gram Stain Result Few Gram positive cocci in pairs(A) 03/01/2025 3:22 PM EDT [facility] Swab Bone structure of sternum [...] ORD ERABLES Final Result Performing Organization Address City/[facility]/[place] [address] * Fungal Culture, Routine (02/26/2025 9:34 AM EDT) Culture No Fungal Growth at 1 Week 03/06/2025 9:03 AM EDT [facility] Swab Bone structure of sternum / Unknown 02/26/2025 9:34 AM EDT 02/26/2025 11:01 AM EDT Comment:Pre-op diagnosis: Chest wall abscess [L02.213] Sherlyn Cisse MD LAB MICROBIOLOGY - GENERAL ORD ERABLES Final Result Performing Organization Address [facility] [place] [address] * PB ANESTHESIA NON-TIMED PROCEDURE PLACEHOLDER (02/26/2025 [...] MD ANESTHESIA ORDERABLES Final Res ult * ID AN ELECTIVE ENDOTRACHEAL AIRWAY, PB ANESTHESIA PLACEHOLDER (02/26/2025 8:53 AM EDT) Praneeth Bowden MD - 02/26/2025 8:53 AM EDT Praneeth [...] ORDERABL ES Final Result [facility] [address] [place] [address], * (ABNORMAL) Wound Culture and Gram Stain (02/25/2025 4:46 AM EDT) CULTURE READING WOUND Moderate Growth 02/27/2025 3:19 PM EDT [facility] CULTURE READING WOUND Staphylococcus aureus(A) GEENA 02/27/2025 3:19 PM EDT [facility] Comment:The organism value f or this result has been updated. These results have been appended to the previously preliminary verified report. Gram Stain Result Numerous Polymorphonuclear leukocytes(A) 02/27/2025 3:19 PM EDT [facility] Gram Stain Result Numerous Gram positive cocci in pairs(A) 02/27/2025 3:19 PM EDT [facility] Gram Stain Result Numerous Gram positive cocci in clusters(A) 02/27/2025 3:19 PM EDT [facility] Swab Skin structure / Unknown [...] MICROBIOLOGY - GENERAL ORD ERABLES Final Result [facility] [address] [place] [address] * ED HIV 1/2 Antibody/Antigen Screen w/Reflex to HIV 1/2 Differentiation (02/25/2025 3:18 AM EDT) HIV 1 & 2 Antibody/Antigen Screen Non Reactive Non Reactive 02/25/2025 4:35 AM EDT [facility] Comment:Screening for HIV 1 & 2 antibodies, and P24 antigen is NONREACTIVE. No confirmatory testing is required. Blood Venous blood specimen / Unknown Venipuncture / Unknown 02/25/2025 3:18 AM EDT 02/25/2025 3:53 AM EDT Franco Guillory MD LAB BLOOD ORDERABLES Final Res ult [facility] [address] [place] [address] * (ABNORMAL) Bacterial ID Gram Positive (02/25/2025 3:18 AM EDT) Staphylococcus Result Detected( A) Not Detected 02/26/2025 4:46 AM EDT [facility] Comment:Assess if contaminan t or clinically relevant pathogen. Consider clinical stability and immune status of patient. Blood Venous blood specimen / Unknown Venipuncture / Unknown 02/25/2025 3:18 AM EDT 02/25/2025 4:04 AM EDT Narrative [facility] - 02/26/2025 4:46 AM EDT [...] MICROBIOLOGY - GENERAL ORD ERABLES Final Result [facility] [address] [place] [address] * Hepatitis C Virus (HCV) Quantitative PCR - ED (02/25/2025 3:18 AM EDT) Pathologist [facility] [place] Hepatitis C Virus (HCV) Quantitative Interpretation Not Detected Not Detected. 02/27/2025 2:45 PM EDT [facility] Blood Venous blood specimen / Unknown Venipuncture / Unknown 02/25/2025 3:18 AM EDT 02/25/2025 3:53 AM EDT Narrative [facility] - 02/27/2025 2:45 PM EDT [employer] M2000 HCV test is a Real Time [...] ORDERABLES Final Res ult Performing Organization Address City/[facility]/ZIP Co de Phone Number [facility] [address] [place] [address] * (ABNORMAL) Hepatitis C Antibody - ED (02/25/2025 3:18 AM EDT) Hepatitis C Antibody Positive(A ) Negative 02/25/2025 4:40 AM EDT [facility] Blood Venous blood specimen / Unknown Venipuncture / Unknown 02/25/2025 3:18 AM EDT 02/25/2025 3:53 AM EDT Franco Guillory MD LAB BLOOD ORDERABLES Final Res ult [facility] [address] [place] [address] * (ABNORMAL) Sed rate, automated (02/25/2025 3:18 AM EDT) Sedimentation Rate 65(H) <15 mm/hr 2024 3:54 AM EDT [facility] Blood Venous blood specimen / Unknown Venipuncture / Unknown 02/25/2025 3:18 AM EDT 02/25/2025 3:40 AM EDT us Franco Guillory MD LAB BLOOD ORDERABLES Final Res ult [facility] [address] [place] [address] * Phosphorus (02/25/2025 3:18 AM EDT) Phosphorus, Plasma 2.7 2.5 - 4.5 mg/dL 02/25/2025 4:23 AM EDT [facility] Blood Venous blood specimen / Unknown Venipuncture / Unknown 02/25/2025 3:18 AM EDT 02/25/2025 3:53 AM EDT Franco Guillory MD LAB BLOOD ORDERABLES Final Res ult Performing Organization Address City/[facility]/ZIP Co de Phone Number [facility] [address] [place] [address] * (ABNORMAL) CMP (02/25/2025 3:18 AM EDT) Glucose, Plasma 132(H) 74 - 99 mg/dL 02/25/2025 4:23 AM EDT [facility] BUN, Plasma 13 7 - 21 mg/dL 02/25/2025 4:23 AM EDT [facility] Creatinine, Plasma 0.86 0.70 - 1.20 mg/dL 02/25/2025 4:23 AM EDT [facility] BUN/Creatinine Ratio 15 02/25/2025 4:23 AM EDT [facility] Sodium, Plasma 137 136 - 145 mmol/L 02/25/2025 4:23 AM EDT [facility] Potassium, Plasma 3.7 3.6 - 4.9 mmol/L 02/25/2025 4:23 AM EDT [facility] Chloride, Plasma 101 97 - 107 mmol/L 02/25/2025 4:23 AM EDT [facility] CO2, Plasma 24 22 - 29 mmol/L 02/25/2025 4:23 AM EDT [facility] Anion Gap 12 6 - 16 mmol/L 02/25/2025 4:23 AM EDT [facility] Total Calcium, Plasma 9.2 8.9 - 10.2 mg/dL 02/25/2025 4:23 AM EDT [facility] Total Protein 7.4 6.3 - 7.9 g/dL 02/25/2025 4:23 AM EDT [facility] Albumin, Plasma 3.5 3.5 - 5.2 g/dL 02/25/2025 4:23 AM EDT [facility] AST, Plasma 20 10 - 50 U/L 02/25/2025 4:23 AM EDT [facility] Comment:Hemolyzed, result ma y be falsely increased. ALT, Plasma 16 10 - 50 U/L 02/25/2025 4:23 AM EDT [facility] Alkaline Phosphatase, Plasma 100 40 - 115 U/L 02/25/2025 4:23 AM EDT [facility] Total Bilirubin, Plasma 0.7 0.2 - 1.1 mg/dL 02/25/2025 4:23 AM EDT [facility] eGFRcr 115.1 mL/min/1.7 3m*2 02/25/2025 4:23 AM EDT [facility] Comment:Reported eGFRcr in m L/min/1.73m2 is based the CKD-EPI 2020 equation that does not use a race coefficient. Blood Venous blood specimen / Unknown Venipuncture / Unknown 02/25/2025 3:18 AM EDT 02/25/2025 3:53 AM EDT us Franco Guillory MD LAB BLOOD ORDERABLES Final Res ult [facility] [address] [place] [address] * CT THORACIC OUTSIDE IMAGES (02/24/2025 8:44 PM EDT) Anatomical Region Laterality Modality Computed Tomogra phy 02/24/2025 8:44 PM EDT us External Provider IMG CT PROCEDURES Final Result from Last 3 Months Insurance [employer] [facility] MEDICAID Advance Directives * Full Code (Latest Code Status on File) Date Activated Date Inactivated Comments 02/25/2025 4:20 AM 03/06/2025 3:45 PM Question Answer Comments I have reviewed the capacity from the link above and, if needed, have updated to appropriate status: Yes Care Teams Street Light Inspector Relationship Specialty Start Date End Date Pcp, No [address] [place] [address] PCP - General Family Medicine 02/25/25 Francisco Javier Eller MD [address] [place] [id number] Collection Clerk 03/02/25
--- OUTSIDE RECORDS SUMMARY | 2025-04-09 09:45 | XMS_ITS | Encounter Summary ---
Author Organization [employer] ([place], [place], [place], [place]) Address [address] [place] [address] Care Team Providers Care Financing Analyst Name Role Phone Subha Cates MD Primary Care Provider Francisco Javier Eller MD Unavailable [phone] Khalida Gustafson MD Unavailable [phone] Encounter Details Date Type Department Care Team (Late st Contact Info) Description 03/21/2025 Abstract [facility] Cardiothoracic Surgery - [facility] [address] [facility] [address] [address] Mita Myles [facility] Social History Tobacco Use Types Packs/Day Years Used Date Smoking Tobacco: Former Cigarettes Smokeless Tobacco: Never Alcohol Use Standard Drinks/Week Comments Never 0 (1 standard drink = 0.6 oz pur e alcohol) Sex and Gender Information Value Date Recorded Sex Assigned at Not on file 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 Gender Identity Not on file Sexual Orientation Not on file documented as of this encounter Plan of Treatment Not on file documented as of this encounter Visit Diagnoses Not on filedocumented in this encounter Care Teams Financing Analyst Relationship Specialty [place] [address] [place] [address] PCP - General Family Medicine 11/21/24 Francisco [facility] [place] [address] Exercise Scientist Cardiology 11/21/24 Khalida Gustafson MD [address] [address] Surgeon Cardiothoracic Surgery 01/09/25 documented as of this encounter
--- OUTSIDE RECORDS SUMMARY | 2025-04-09 09:45 | XMS_ITS | Encounter Summary ---
Author Organization Healthcare Address [address] [place] [address] Care Team Providers Care Vendor Specialist Name Role Phone Pcp, No Primary Care Provider Unavailvidal e Francisco Javier Eller MD Unavailable [phone] Encounter Details Date Type Department Care Team [...] Description 04/10/2025 8:30 AM EDT Office Visit [facility] [id number] [place] [address] Keny Chin MD [address] [place] [id number] documented as of this encounter Visit Diagnoses Not on filedocumented in this encounter Additional Health Concerns Assessment Noted Time A fall risk assessment has been complete d for the patient 03/12/2025 10:07 AM EDT A Body Mass Index follow-up plan has been documented for the patient 03/26/2025 11:07 AM EDT documented as of this encounter Care Teams Vendor Specialist Relationship Specialty Start Date End Date Pcp, [place] [address] PCP - General Family Medicine 02/25/25 Francisco [facility] [place] [address] Morgue Attendant 03/02/25 documented as of this encounter
[2025-04-09 10:04] VITALS: BMI 33.3
[2025-04-09 10:11] LABS: Hematocrit 48.3 % (42.0-52.0); Hemoglobin 15.9 g/dL (14.1-18.0); Immature Granulocytes % 0.2 %; Mean Corpuscular HGB Conc 32.9 g/dL (31.8-35.4); Mean Corpuscular Hemoglobin 28.7 pg (27.0-31.2); Mean Corpuscular Volume 87.2 fl (80-94); Nucleated Red Blood Cells % 0 %; Platelet Count 146 K/mm3 (142-424); Red Blood Count 5.54 M/mm3 (4.60-6.20); Red Cell Distribution Width-SD 41.9 fL; White Blood Count 4.8 K/mm3 (4.8-10.8)
[2025-04-09 10:27] LABS: C-Reactive Protein 6.0 mg/L (0-4)
[2025-04-09 10:52] LABS: Blood Urea Nitrogen 14 mg/dl (9-20); Creatinine Clearance Estimated 155 mL/min (50-200); Creatinine,Serum 1.10 mg/dl (0.66-1.25); Estimated Glomerular Filt Rate 76 ml/min (>60); GFR (African American) 92 ML/MIN (>60)
== END 2025-04-09 10:00 | disposition home or self-care (01) ==
LOC: INF 09:35
PROVIDERS: Visit Provider Physician Assistant
DX: R78.81 Bacteremia (principal); B95.61 Methicillin susceptible Staphylococcus aureus infection as the cause of diseases classified elsewhere
CPT/HCPCS: 36592; 82565; 84520; 85025; 86140; 96523

== ENCOUNTER → 2025-04-16 09:00 | Outpatient (RCR) | payer OTHER, MEDICAID, SELFPAY | LOC: PT 04-05 08:57 | PROVIDERS: Visit Provider Student in an Organized Health Care Education/Training Program | DX: L02.213 Cutaneous abscess of chest wall (principal) | CPT/HCPCS: 97164; 97605 ==